=== PATIENT | male | born 1970 | race Caucasian/White ===

== ENCOUNTER 2020-06-22 22:00 | Emergency (ER) | payer SELFPAY ==
[2020-06-22 22:15] VITALS: BP 146/89; PULSE 91; RESP 18; TEMP 36.6; O2SAT 97; BMI 24.2
--- NOTE | 2020-06-22 22:35 | ED.ALCOHOL ---
HPI - Alcohol General Chief Complaint: ETOH/Substance Use Stated Complaint: etoh Time Seen by Provider: 06/22/20 22:17 Source: patient, EMS and other (Girlfriend) Mode of arrival: EMS History of Present Illness HPI narrative: A 50-year-old male who had a good who drinks vodka regularly and had 2 pt today and states that he is homeless, however on review of document him it is reported with EMS brought him in after being called by the girlfriend with whom he was fighting with. Patient states he is interested in the coughing is not currently having pain anywhere. Related Data Allergies Allergy/AdvReac Type Severity Reaction Status Date / Time clams Allergy Severe HIVES, Unverified 03/12/20 17:45 DIFFICULTY BREATHING Review of Systems Review of Systems: The pertinent positives and negatives as stated in HPI 10 point review of systems is otherwise negative. [facility] Past Medical History Source: nursing notes reviewed Medical History ETOH abuse High cholesterol HTN (hypertension) Social History Social History Alcohol intake: current Alcohol intake frequency: 3 or more drinks per day Alcohol type: hard liquor Smoking Status: Current every day smoker Use of substances other than those prescribed or required for medical reasons: No Advance Directives: No Advance Directives Information Provided: Yes Physical Exam Vital Signs: Vital Signs: Last Vital Signs Temp 97.8 F 06/23/20 00:16 Pulse 66 06/23/20 00:16 Resp 18 06/23/20 00:16 BP 104/53 L 06/23/20 00:16 Pulse Ox 96 06/23/20 00:16 Body Mass Index 24.2 VITAL SIGNS: Reviewed. GENERAL: Well developed, well nourished, in no acute distress. HEAD: Normocephalic/atraumatic, EYES: PERRLA, EOMI intact without pain, no nystagmus/pallor/icterus noted EARS: Ext canals without abnormality, TMs non-bulging and non-erythematous NOSE: Nares patent bilateral, bulbous OROPHARYNX: no oral lesions noted, posterior pharynx clear and non-erythematous without noted tonsillar enlargement/erythema/exudates NECK: Supple, no adenopathy LUNGS: Normal breath sounds. No adventitious sounds or accessory muscle use. SpO2<97> CARDIOVASCULAR: Regular rate and rhythm without noted murmurs, no JVD or lower extremity edema. ABDOMEN: Soft, non-tender, non-distended with bowel sounds. No rigidity. No guarding. No palpable masses or hernias noted NEUROLOGIC: Alert and oriented x 3, no tremors Course Course Course Narrative: This is a 50-year-old male with history and clinical presentation consistent with alcohol intoxication and requesting detox. All investigations were reviewed and there are no acute findings. The noted transaminemia is secondary to patient's intoxication. I was notified by nursing that patient has eloped. MDM - Alcohol Lab Data Result diagrams: 06/22/20 23:12 06/22/20 23:12 Labs: Lab Results 06/22/20 06/22/20 06/22/20 Range/Units 23:12 23:12 23:13 WBC 4.3 L (4.8-10.8) X10*3/uL RBC 4.50 L (4.60-5.80) X10*6/uL Hgb 13.1 L (14.0-18.0) g/dl Hct 40.3 L (42-52) % MCV 89.6 (80-98) fL MCH 29.1 (27.0-33.0) pg MCHC 32.5 (31.0-36.0) g/dl RDW 14.7 (11.0-16.0) % Plt Count 234 (160-400) X10*3/uL MPV 9.8 (9.4-12.4) fL Immature Gran % (Auto) 0.5 H (0.0-0.4) % Neut % (Auto) 63.7 (45-73) % Lymph % (Auto) 19.3 L (20-40) % [place] % (Auto) 11.1 H (2-11) % Eos % (Auto) 4.7 H (0-4) % Baso % (Auto) 0.7 (0-2) % Lymph # (Auto) 0.8 L (1.2-4.9) X10*3/uL [place] # (Auto) 0.5 (0.1-1.2) X10*3/uL Eos # (Auto) 0.2 (0.0-0.4) X10*3/uL Baso # (Auto) 0.0 (0.0-0.2) X10*3/uL Abs Immat Gran (auto) 0.02 (0.00-0.03) X10*3/uL Absolute Neuts (auto) 2.7 (2.0-8.3) X10*3/uL Absolute Nucleated RBC 0.000 (0.0-0.012) X10*3/uL Nucleated RBC % (auto) 0.0 (0.0-0.2) /100WBC Sodium 141 (135-145) mmol/L Potassium 4.3 (3.3-5.1) mmol/l Chloride 109 H (96-108) mmol/L Carbon Dioxide 23 (22-29) mmol/L Anion Gap 13 (12-20) BUN 15 (9-16) mg/dL Creatinine 0.80 (0.5-1.4) mg/dL Estim Creat Clear Calc 99.6 Estimated GFR > 60 Random Glucose 107 (60-115) mg/dL Calcium 7.2 L (8.4-10.2) mg/dL Total Bilirubin 0.2 (0.0-1.0) mg/dL AST 63 H (5-37) U/L ALT 46 H (0-40) U/L Alkaline Phosphatase 63 (39-117) U/L Total Protein 7.9 (6.5-8.0) g/dL Albumin 3.4 L (3.5-5.0) g/dL Ethyl Alcohol 322 H* mg/dL Discharge Plan Discharge Clinical Impression: Alcoholic intoxication Patient Disposition: Elopement
[2020-06-22 23:24] LABS: Basophils Percent Auto 0.7 % (0-2); Eosinophils Absolute Auto 0.2 X10*3/uL (0.0-0.4); Eosinophils Percent Auto 4.7 % (0-4); Hematocrit 40.3 % (42-52); Hemoglobin 13.1 g/dl (14.0-18.0); Imm Gran Abs Auto 0.02 X10*3/uL (0.00-0.03); Imm Gran Pct Auto 0.5 % (0.0-0.4); Lymphocytes Absolute Auto 0.8 X10*3/uL (1.2-4.9); Lymphocytes Percent Auto 19.3 % (20-40); MANUAL DIFF FLAG NO; Mean Corpuscular HGB Conc 32.5 g/dl (31.0-36.0); Mean Corpuscular Hemoglobin 29.1 pg (27.0-33.0); Mean Corpuscular Volume 89.6 fL (80-98); Mean Platelet Volume 9.8 fL (9.4-12.4); Monocytes Absolute Auto 0.5 X10*3/uL (0.1-1.2); Monocytes Percent Auto 11.1 % (2-11); Neutrophils Absolute Auto 2.7 X10*3/uL (2.0-8.3); Neutrophils Percent Auto 63.7 % (45-73); Platelet Count 234 X10*3/uL (160-400); Red Cell Distribution Width 14.7 % (11.0-16.0); White Blood Count 4.3 X10*3/uL (4.8-10.8)
[2020-06-22 23:46] LABS: Ethanol 322 mg/dL
[2020-06-22 23:51] LABS: Alanine Aminotransferase 46 U/L (0-40); Albumin Level 3.4 g/dL (3.5-5.0); Alkaline Phosphatase 63 U/L (39-117); Anion Gap 13 (12-20); Aspartate Amino Transferase 63 U/L (5-37); Bilirubin Total 0.2 mg/dL (0.0-1.0); Blood Urea Nitrogen 15 mg/dL (9-16); Calcium 7.2 mg/dL (8.4-10.2); Carbon Dioxide 23 mmol/L (22-29); Chloride 109 mmol/L (96-108); Creatinine Clr Calc Pharmacy 99.6; Estimated Glomerular Filt Rate > 60; Glucose Random 107 mg/dL (60-115); Potassium 4.3 mmol/l (3.3-5.1); Sodium 141 mmol/L (135-145); Total Protein 7.9 g/dL (6.5-8.0)
[2020-06-23 00:16] VITALS: BP 104/53; PULSE 66; RESP 18; TEMP 36.6; O2SAT 96
--- NOTE | 2020-06-23 01:06 | PC.NURSE ---
REPORT GIVEN TO TERESA SCHMIDT.
--- NOTE | 2020-06-23 03:25 | PC.NURSE ---
PATIENT SLEEPING AT THIS TIME. WILL CONTINUE TO MONITOR.
--- NOTE | 2020-06-23 07:14 | PC.NURSE ---
Report received. PT is sleeping in bed. Breathing is even and unlabored. PT wants to enter alcohol detox program. Nurse to discuss options with PT when he wakes up.
--- NOTE | 2020-06-23 07:49 | PC.NURSE ---
PT woke up and stated that he wants to go home. Nurse to provide a list of numbers to call for detox. Provider notified.
--- NOTE | 2020-06-23 08:02 | PC.NURSE ---
PT's home phone called to inform that belongings were left at the hospital. No one answered the phone, nurse left voicemail.
== END 2020-06-23 08:35 | disposition left against medical advice (07) ==
PROVIDERS: Emergency Provider Student in an Organized Health Care Education/Training Program
DX: F10.129 Alcohol abuse with intoxication, unspecified (principal); Y90.8 Blood alcohol level of 240 mg/100 ml or more; F17.200 Nicotine dependence, unspecified, uncomplicated; Z71.6 Tobacco abuse counseling; Z59.0 Homelessness
CPT/HCPCS: 36415; 80053; 80320; 85025; 99284

== ENCOUNTER 2020-09-13 18:10 | Emergency (ER) | payer MEDICAID, SELFPAY ==
[2020-09-13 18:21] VITALS: BP 131/81; PULSE 87; RESP 18; TEMP 36.7; O2SAT 97; BMI 22.8
--- NOTE | 2020-09-13 18:21 | ED.ALCOHOL ---
HPI - Alcohol General Chief Complaint: ETOH/Substance Use Stated Complaint: etoh Source: patient Mode of arrival: ambulatory Limitations: no limitations History of Present Illness HPI narrative: Patient presents to ED for alcohol intoxication/alcohol use. Patient admits to drinking. Patient denies falling to the ground. Patient does not want detox. Related Data Allergies Allergy/AdvReac Type Severity Reaction Status Date / Time clams Allergy Severe HIVES, Unverified 03/12/20 17:45 DIFFICULTY BREATHING Review of Systems Review of Systems: Yes all other systems are reviewed and are negative Constitutional: Constitutional: Reports as per HPI and Reports no additional constitutional complaints Eyes: Eyes: Reports as per HPI and Reports no additional eye complaints ENT: Reports system reviewed and no additional complaints, except as documented and Reports as per HPI Cardiovascular: Cardiovascular: Reports as per HPI and Reports no additional cardiovascular complaints Respiratory: Respiratory: Reports as per HPI and Reports no additional respiratory complaints Gastrointestinal: Gastrointestinal: Reports as per HPI and Reports no additional gastrointestinal complaints Genitourinary: Genitourinary: Reports no additional male genitourinary complaints and Reports as per HPI Musculoskeletal: Musculoskeletal: Reports no additional musculoskeletal complaints and Reports as per HPI Neurologic: Reports system reviewed and no additional complaints, except as documented and Reports as per HPI Psychiatric: Psychiatric: Reports no additional psychiatric complaints and Reports as per HPI PMFSH Past Medical History Medical History ETOH abuse High cholesterol HTN (hypertension) Social History Social History Alcohol intake: current Alcohol intake frequency: 3 or more drinks per day Alcohol type: hard liquor Smoking Status: Current every day smoker Advance Directives: No Advance Directives Information Provided: No Physical Exam Vital Signs: Vital Signs: Last Vital Signs Temp 98.3 F 09/13/20 22:47 Pulse 112 H 09/13/20 22:47 Resp 18 09/13/20 22:47 BP 119/72 09/13/20 22:47 Pulse Ox 93 09/13/20 22:47 Body Mass Index 22.8 Const: Other: Alcohol on breath General: cooperative, healthy appearing, comfortable, no acute distress, well developed, alert, awake and Physically active Orientation/consciousness: patient oriented x3 HENMT: Head: Yes normal to inspection, Yes No palpable skull fracture present, Yes normocephalic, Yes atraumatic, No abrasion, No Acrocyanosis present, No Willams's sign, No contusion, No cranial bruits, No hematoma, No laceration, No occipital foramen tenderness, No palpable skull fracture, No raccoon eyes, No scalp lesion, No scalp tenderness, No Temporal artery tenderness present and No periorbital ecchymosis Eyes: General: appearance normal, both eyes and all related structures Neck: Neck: Yes normal visual inspection, Yes full ROM, Yes no lymphadenopathy, Yes no meningeal signs, Yes trachea midline, Yes supple and No tender Chest: Chest palpation & inspection: normal inspection of the chest and normal palpation of entire chest wall Resp: Effort & Inspection: normal respiratory effort Auscultation: clear to auscultation bilaterally Cardio: Jugular venous distension: no JVD Heart sounds: S1 normal heart sound present and S2 normal heart sound present GI: Inspection: Yes normal to inspection and No abdominal wall ecchymosis Palpation (GI): Soft to palpation, not firm, nontender, no guarding and not rigid : General: No CVA tenderness and Yes no CVA tenderness Back/Spine/Pelvis: Back: no CVA tenderness, No CVA tenderness and No back tenderness Skin: General skin exam: no rashes or lesions noted Neuro: General: patient oriented x3, no meningeal signs and CN's II-XI intact bilaterally Cranial nerves: Yes CN's II-XII intact bilaterally Extrem: General: Yes normal to inspection and Yes full ROM Psych: Appearance: grossly normal, well kempt and not disheveled Course Course Course Narrative: Patient's whole body examined and negative for signs of trauma. Patient has alcohol on breath and seemed slightly inebriated. Any patient rest in the ED and become more sober before discharge. Patient really does not want detox. Reevaluation(s) Reevaluation #1: Patient alert oriented x3. Patient ready for discharge. Patient does not want detox. Patient has normal gait. Time: 00:32 MDM - Alcohol MDM Narrative Medical decision making narrative: Alcohol abuse Discharge Plan Discharge Clinical Impression: Alcohol abuse Patient Disposition: Home, Self-Care Instructions: Abuse of Alcohol (ED) Additional Instructions: Return to the ED immediately for any headache, dizziness, chest pain, abdominal pain, vomiting blood, rectal bleeding, weakness, or any other concerning symptoms. Please follow-up with the PCP Interventions: ED Discharge Assessment Last Done: 09/14/20 00:42 Discharge Date/Time: 09/14/20 00:52 Print Language: Icelandic
[2020-09-13 22:47] VITALS: BP 119/72; PULSE 112; RESP 18; TEMP 36.8; O2SAT 93
== END 2020-09-14 00:52 | disposition home or self-care (01) ==
PROVIDERS: Emergency Provider Internal Medicine
DX: F10.10 Alcohol abuse, uncomplicated (principal); I10 Essential (primary) hypertension; F17.200 Nicotine dependence, unspecified, uncomplicated
CPT/HCPCS: 99284

== ENCOUNTER 2020-09-15 13:50 | Emergency (ER) | payer MEDICAID, SELFPAY ==
--- NOTE | ~2020-09-15 | CT_ITS ---
EXAMINATION: CT CHEST, ABDOMEN AND PELVIS WITHOUT CONTRAST CLINICAL INFORMATION: Patient complains of abdominal pain. ETOH intake. COMPARISON: Lumbar spine films 01/16/2016. TECHNIQUE: Multidetector volumetric imaging was performed from the thoracic inlet through the pubic symphysis without IV contrast. Sagittal and coronal reformatted images were obtained on the technologist's workstation. This CT examination was performed using dose optimization techniques as appropriate, variously including the following: Automated exposure control. Adjustment of mA and/or kV according to patient size (this includes techniques or standardized protocols for targeted exams where dose is matched to indication/reason for exam; i.e. extremities or head). Use of iterative reconstruction technique. DLP: 231 mGy-cm FINDINGS: CHEST: Lung: The lung santos are abnormal with increased reticular nodular markings peripherally with some suggestion of honeycombing. Findings are suggestive of interstitial lung disease. At least 2 small focal nodular densities are seen; a 4 mm nodule left apex (5:92) and a 6 mm nodule left upper lobe (5:153). Calcified granulomas are also present. No consolidation is seen. Mediastinum: The heart is enlarged. No aortic aneurysm is present. Multiple mediastinal lymph nodes are present, the largest being a right paratracheal node measuring 2.2 x 1.3 x 2.2 cm (5:162). Multiple smaller aortopulmonary window lymph nodes are present, the largest measuring 1.5 x 0.9 x 0.9 cm (5:168). Pericardium/Pleura: No significant effusion. No pleural mass or thickening. Chest Wall/Axilla: Bilateral small axillary lymph nodes are present, but there is no adenopathy. ABDOMEN/PELVIS: Peritoneal Space: No significant free air or free fluid identified. Liver, Gallbladder, Biliary Tree: Liver is enlarged measuring 20 cm in greatest length and demonstrates marked decreased attenuation consistent with hepatic steatosis. No focal liver mass or bile duct dilatation is seen. The gallbladder is isoattenuating with the liver, but unremarkable with no evidence of radiopaque gallstones, gallbladder wall thickening, or obvious pericholecystic inflammatory changes. Pancreas: Unremarkable. Spleen: Unremarkable. Adrenal Glands: Unremarkable. Kidneys and Ureters: The kidneys are normal in size, shape, and attenuation. No hydronephrosis, hydroureter, or calculi seen. No perinephric stranding. Bladder: Unremarkable. Gastrointestinal Tract: The small and large bowel are unremarkable. The appendix is unremarkable. Abdominal Wall: No significant hernia is appreciated. Lymph Nodes: No lymphadenopathy. Vascular: The aorta appears normal. The IVC appears unremarkable. PELVIC VISCERA: Prostate and seminal vesicles appear normal. OSSEUS STRUCTURES: A grade 2-3 anterolisthesis of L5 upon S1 is again seen. A compression fracture of L1 with anterior wedging is stable. CT/CT abdomen pelvis wo con IMPRESSION: A cause for the patient's acute abdominal pain has not been found. Incidental note made of: Chronic changes in the lungs consistent with some element of interstitial lung disease. Small pulmonary nodules, the largest 6 mm. Cardiomegaly with prominent mediastinal lymph nodes. Enlarged fatty liver. Stable anterolistheses and compression fracture as described above.
[2020-09-15 14:03] VITALS: BP 133/93; PULSE 90; RESP 16; TEMP 36.4; O2SAT 97; BMI 21.7
[2020-09-15 16:02] LABS: Basophils Percent Auto 0.3 % (0-2); Eosinophils Absolute Auto 0.1 X10*3/uL (0.0-0.4); Eosinophils Percent Auto 2.3 % (0-4); Hemoglobin 12.9 g/dl (14.0-18.0); Imm Gran Abs Auto 0.01 X10*3/uL (0.00-0.03); Imm Gran Pct Auto 0.3 % (0.0-0.4); Lymphocytes Absolute Auto 0.6 X10*3/uL (1.2-4.9); Lymphocytes Percent Auto 14.4 % (20-40); MANUAL DIFF FLAG SCAN; Mean Corpuscular HGB Conc 32.3 g/dl (31.0-36.0); Mean Corpuscular Volume 89.9 fL (80-98); Mean Platelet Volume 9.5 fL (9.4-12.4); Monocytes Absolute Auto 0.4 X10*3/uL (0.1-1.2); Monocytes Percent Auto 10.3 % (2-11); Neutrophils Absolute Auto 2.9 X10*3/uL (2.0-8.3); Neutrophils Percent Auto 72.4 % (45-73); Platelet Count 230 X10*3/uL (160-400); Red Blood Count 4.45 X10*6/uL (4.60-5.80); Red Cell Distribution Width 17.2 % (11.0-16.0); SCAN SMEAR FLAG 1
[2020-09-15 16:20] LABS: Ethanol 291 mg/dL
[2020-09-15 16:24] LABS: Lactate Dehydrogenase 319 U/L (118-273); Magnesium 2.3 mg/dL (1.6-2.6)
[2020-09-15 16:29] LABS: Alanine Aminotransferase 63 U/L (0-40); Albumin Level 3.4 g/dL (3.5-5.0); Alkaline Phosphatase 80 U/L (39-117); Anion Gap 17 (12-20); Aspartate Amino Transferase 110 U/L (5-37); Bilirubin Total 0.7 mg/dL (0.0-1.0); Blood Urea Nitrogen 18 mg/dL (9-16); Calcium 7.8 mg/dL (8.4-10.2); Carbon Dioxide 20 mmol/L (22-29); Chloride 106 mmol/L (96-108); Creatinine Clr Calc Pharmacy 124.2; Estimated Glomerular Filt Rate > 60; Glucose Random 83 mg/dL (60-115); Lipase 72 U/L (8-78); Potassium 3.9 mmol/L (3.3-5.1); Sodium 139 mmol/L (135-145); Total Protein 8.2 g/dL (6.5-8.0)
[2020-09-15 16:50] LABS: SLIDE REVIEW VERIFIED
--- NOTE | 2020-09-15 17:50 | PC.NURSE ---
Pt moved to enclosed room pending covid swab results.
[2020-09-15 17:57] LABS: Influenza A PCR NEGATIVE (Negative); Influenza B PCR NEGATIVE (Negative); Resp Syncy Virus RNA Qual PCR NEGATIVE (Negative); SARS COV2 PCR INHOUSE NEGATIVE (Negative)
--- NOTE | 2020-09-15 17:59 | ECG_ITS ---
Test Reason : ETOH Blood Pressure : / mmHG Vent. Rate : 092 BPM Atrial Rate : 092 BPM P-R Int : 212 ms QRS Dur : 098 ms QT Int : 364 ms P-R-T Axes : 040 -34 023 degrees QTc Int : 450 ms Sinus rhythm with 1st degree A-V block Left axis deviation Abnormal ECG When compared with ECG of 01-JUL-2013 05:32, [place] interval has increased Referred By: Ai Petit Electronically Signed By:JOSÉ MIGUEL JACOBO
[2020-09-15 18:52] LABS: Ferritin 384 ng/mL (20-250)
--- NOTE | 2020-09-15 19:03 | PC.NURSE ---
Report taken from ezequiel Lawler RN resuming care. Pt found sitting upright in bed, speaking full sentences in NAD. Urine sample obtained and sent. fisheries technical officer to obtain EKG. Pt provided with food/drink. Continue to monitor.
[2020-09-15 19:08] LABS: Procalcitonin 0.55 ng/mL
--- NOTE | 2020-09-15 19:20 | ED_ITS ---
HPI - Alcohol General Chief Complaint: ETOH/Substance Use Stated Complaint: ETOH, BACK PAIN NO INJURY Time Seen by Provider: 09/15/20 15:25 Source: patient and EMS Mode of arrival: EMS Limitations: other (Intoxicated poor historian) History of Present Illness HPI narrative: 50-year-old male with a past medical history of ETOH dependent, chronic back pain due to spinal fracture, hyperlipidemia and hypertension pres enting to the ED via EMS after he was found outside at [employer] [place] therefore [employer] called EMS and told him he can no longer be there. Patient admits to drinking approximately 2 beers and 1 pt of vodka daily. Reports he is currently homeless. Not interested in detox. Denies any drug usage. Denies any SI/HI/auditory visual hallucinations thoughts of self-injury. Admits to pain that he reports is chronic no increase in pain. Denies any fevers, dizziness, headaches, lightheadedness, changes in vision, sore throat, cough, chest pain, shortness of breath, dyspnea on exertion, orthopnea, palpitations, lower extremity edema, nausea/vomiting/diarrhea/constipation, abdominal pain, penile discharge or dysuria or any other symptoms complaints or concerns. MD complaint: alcohol intoxication and alcohol dependence Last drink: Just prior to admission Amount of alcohol consumed: Two beers and 1 pt of vodka daily Chronic alcohol use: Yes Previous visits for alcohol intoxication: Yes Recent trauma: No Associated symptoms: other (Chronic back pain) Treatments prior to arrival: none Related Data Allergies Allergy/AdvReac Type Severity Reaction Status Date / Time clams Allergy Severe HIVES, Verified 09/15/20 14:07 DIFFICULTY BREATHING Review of Systems Review of Systems: Constitutional : No Fever, No Chills ENT/Mouth : No Ear Pain, No Nasal Congestion, No sore throat Eyes: No Eye Pain, No Swelling, No Redness Cardiovascular : No Chest Pain, No SOB Respiratory : No Cough, No Sputum, No Dyspnea Gastrointestinal : No ingestions, No Nausea, No Vomiting, No Diarrhea, No Hematochezia, No Melena Genitourinary : No Dysuria, No Urinary Frequency, No Hematuria Musculoskeletal : No Myalgias Skin : No Skin Lesions, No rash Neuro : No Weakness, No Numbness, No Paresthesias, No Dizziness, No Headache Psych : No Anxiety, No Depression, No SI/HI, No AVH, No thoughts of self injury Heme/Lymph: No Lymphadenopathy Endocrine : No Polyuria, No Polydipsia Yes all other systems are reviewed and are negative [facility] Past Medical History Attestation statement: The following information was validated with the patient. Medical History ETOH abuse High cholesterol HTN (hypertension) Social History Social History Alcohol intake: current Alcohol intake frequency: 3 or more drinks per day Alcohol type: hard liquor Smoking Status: Smoker, status unknown Use of substances other than those prescribed or required for medical reasons: Unknown Last Used Substance: Unknown Advance Directives: No Advance Directives Information Provided: No Physical Exam Vital Signs: Vital Signs: Last Vital Signs Temp 97.6 F 09/15/20 14:03 Pulse 100 09/15/20 21:35 Resp 16 09/15/20 21:35 BP 118/79 09/15/20 21:35 Pulse Ox 95 09/15/20 21:35 Body Mass Index 21.7 vital signs have been reviewed as normal and appeared to be correct. Blood pressure hypertensive at 133/93. Heart rate normal. Respiration rate normal. Temperature normal. Oxygen saturation normal. Appearance: Alert intoxicated with EtOH on breath. Otherwise Oriented X3. No acute distress. No signs of tr auma. Head: Normal external exam. Normocephalic. Atraumatic. No Willams signs noted. No raccoon eyes noted Eyes: PERRLA. EOMI. Conjunctiva and sclera normal. Eyelids normal. ENT: EAC normal. TM's Normal. Pharynx normal. Uvula midline. Moist mucous membranes. No trismus noted. No drooling noted. No muffled voice noted. Neck: Normal inspection. Neck supple. FROM. No adenopathy. Thyroid Normal. No meningeal signs. No neck mass noted. CVS: Normal heart rate and rhythm. Heart sound normal. No murmurs noted. Pulses normal throughout. Respiratory: No respiratory distress. Painless inspiration. Breath sounds normal. No wheezes/rales/rhonchi noted. Chest nontender. No accessory muscle usage noted or decreased air movement noted. Abdomen: Soft and mild tenderness to palpation to left flank. Bowel sounds normal in all 4 quadrants. No distention noted. No organomegaly noted. No visible injury noted. Back: No CVA tenderness. Full range of motion noted. No obvious deformities, or edema. Mild para-spinal muscular tenderness from lumbar region to coccyx. Full ROM in back and lower extremities. 5/5 strength hip extension/flexion, abduction, adduction. Mild Lumbar pain with hip flexion against resistance. Straight leg raise test negative on right; Straight leg raise test negative on left; Reflexes normal ankle and knee bilaterally; EHL motor strength normal bilaterally Skin: Skin warm and dry. Normal skin color. Normal skin turgor. No rashes/lesions/lacerations noted. Extremities: No lower extremity edema. Extremities exhibit normal range of motion. Extremities nontender. Neuro: Oriented X 3. No motor deficit. No sensory deficit. Reflexes normal. Psych: Appearance grossly normal, well-kept, mental status normal, speech and movement normal, speech clear, mood is normal. Is cooperative. Normal thought process. Normal thought content. Patient does not have good insight or judgment. Course Course Course Narrative: 15:35pm - 50-year-old male with a past medical history of ETOH dependent, chronic back pain due to spinal fracture, hyperlipidemia and hypertension presenting to the ED for approximately drinking 2 beers and 1 pt of vodka daily. Currently homele ss. Not interested in detox. Denies any SI/HI/auditory visual syndrome thoughts of self-injury. Reports chronic back pain denies any new symptoms. - on exam patient is intoxicated although alert and oriented x3. Not in any acute distress. Mildly hypertensive at 133/93 otherwise all other vitals are within normal limits. No focal neuro deficits are noted. Lungs clear to auscultation. CV RRR. Patient mild left flank pain. Otherwise the rest of the abdomen is soft and nontender. Mild left lower back pain. No calf tenderness or lower extremity edema. No signs of trauma. - will obtain labs, CT scan of abdomen and pelvis and EKG then re-evaluate. Reevaluation(s) Reevaluation #1: - white blood cell count 4000. Patient with mild baseline anemia. Similar when compared to prior. Carbon dioxide 20. BUN 18. Calcium 7.8. Ferritin 384. AST/ALT 110/63. LDH 319. CRP 0.60. Total protein 8.2. Albumin 3.4. UA within normal limits no evidence of UTI. ETOH level 291. COVID/RSV/flu negative. - I was called over by the sales and service technician regarding the patient's CT scan of abdomen and pelvis revealing that his are appeared enlarged therefore we obtained a CT of chest without contrast and CT scan of chest and abdomen revealed chronic changes and lungs consistent with some elevated of interstitial lung disease. Small pulmonary nodules, the largest 6 mm. Cardiomegaly with prominent mediastinal lymph nodes. Enlarged fatty liver otherwise no other acute processes. - patient denied any symptoms to me therefore will print out the CT scan results give him a copy and instruct him to follow up with his primary care provider about this. - otherwise patient is medically cleared at this time he denies any SI/HI/ auditory visual hallucinations or thoughts of self injury and he is not interested in detox therefore patient will be placed in physician on survey merritt at this time because the patient needs more time to clinically be sober. At this time the observation was started the patient's vitals remained stable within normal limits. Patient continues to be alert and oriented x3. Not in any acute distress. No focal neuro deficits noted. CV RRR. Lungs CTA. Will continue to monitor until patient is clinically sober. Patient understands agrees with this plan. Time: 19:29 MDM - Alcohol Medical Records Attestation: I reviewed the patient's medical records. Lab Data Attestation: I reviewed the patient's lab results. Result diagrams: 09/15/20 15:53 09/15/20 15:53 Labs: Lab Results 09/15/20 09/15/20 09/15/20 Range/Units 15:53 15:53 15:53 WBC 4.0 L (4.8-10.8) X10*3/uL RBC 4.45 L (4.60-5.80) X10*6/uL Hgb 12.9 L (14.0-18.0) g/dl Hct 40.0 L (42-52) % MCV 89.9 (80-98) fL MCH 29.0 (27.0-33.0) pg MCHC 32.3 (31.0-36.0) g/dl RDW 17.2 H (11.0-16.0) % Plt Count 230 (160-400) X10*3/uL MPV 9.5 (9.4-12.4) fL Immature Gran % (Auto) 0.3 (0.0-0.4) % Neut % (Auto) 72.4 (45-73) % Lymph % (Auto) 14.4 L (20-40) % [place] % (Auto) 10.3 (2-11) % Eos % (Auto) 2.3 (0-4) % Baso % (Auto) 0.3 (0-2) % Lymph # (Auto) 0.6 L (1.2-4.9) X10*3/uL [place] # (Auto) 0.4 (0.1-1.2) X10*3/uL Eos # (Auto) 0.1 (0.0-0.4) X10*3/uL Baso # (Auto) 0.0 (0.0-0.2) X10*3/uL Abs Immat Gran (auto) 0.01 (0.00-0.03) X10*3/uL Absolute Neuts (auto) 2.9 (2.0-8.3) X10*3/uL Absolute Nucleated RBC 0.000 (0.0-0.012) X10*3/uL Nucleated RBC % (auto) 0.0 (0.0-0.2) /100WBC Smear Tech's Comments VERIFIED Hold Purple Top SEE NOTE PT 12.0 (10.8-13.0) SEC INR 1.0 (0.9-1.1) Sodium (135-145) mmol/L Potassium (3.3-5.1) mmol/L Chloride (96-108) mmol/L Carbon Dioxide (22-29) mmol/L Anion Gap (12-20) BUN (9-16) mg/dL Creatinine (0.5-1.4) mg/dL Estim Creat Clear Calc Estimated GFR Random Glucose (60-115) mg/dL Calcium (8.4-10.2) mg/dL Magnesium (1.6-2.6) mg/dL Ferritin (20-250) ng/mL Total Bilirubin (0.0-1.0) mg/dL AST (5-37) U/L ALT (0-40) U/L Alkaline Phosphatase (39-117) U/L Lactate Dehydrogenase (118-273) U/L C-Reactive Protein (< or = 0.50) mg/dL Total Protein (6.5-8.0) g/dL Albumin (3.5-5.0) g/dL Lipase (8-78) U/L Procalcitonin ng/mL Urine Color Urine Appearance Urine pH (5.0-8.0) Ur Specific [place] (1.005-1.025) Urine Protein (NEG-TRACE) MG/DL Urine Glucose (UA) (NEG) MG/DL Urine Ketones (NEG) MG/DL Urine Blood (NEG) Urine Nitrite (NEG) Ur Leukocyte Esterase (NEG) Urine Opiates Screen (Not Detect) Ur Barbiturates Screen (Not Detect) Ur Phencyclidine Scrn (Not Detect) Ur Amphetamines Screen (Not Detect) U Benzodiazepines Scrn (Not Detect) Urine Cocaine Screen (Not Detect) U Marijuana (THC) Screen (Not Detect) Ethyl Alcohol mg/dL Coronavirus (PCR) (Negative) Influenza Type A (PCR) (Negative) Influenza Type B (PCR) (Negative) RSV RNA Qual (PCR) (Negative) 09/15/20 09/15/20 09/15/20 Range/Units 15:53 15:53 15:53 WBC (4.8-10.8) X10*3/uL RBC (4.60-5.80) X10*6/uL Hgb (14.0-18.0) g/dl Hct (42-52) % MCV (80-98) fL MCH (27.0-33.0) pg MCHC (31.0-36.0) g/dl RDW (11.0-16.0) % Plt Count (160-400) X10*3/uL MPV (9.4-12.4) fL Immature Gran % (Auto) (0.0-0.4) % Neut % (Auto) (45-73) % Lymph % (Auto) (20-40) % [place] % (Auto) (2-11) % Eos % (Auto) (0-4) % Baso % (Auto) (0-2) % Lymph # (Auto) (1.2-4.9) X10*3/uL [place] # (Auto) (0.1-1.2) X10*3/uL Eos # (Auto) (0.0-0.4) X10*3/uL Baso # (Auto) (0.0-0.2) X10*3/uL Abs Immat Gran (auto) (0.00-0.03) X10*3/uL Absolute Neuts (auto) (2.0-8.3) X10*3/uL Absolute Nucleated RBC (0.0-0.012) X10*3/uL Nucleated RBC % (auto) (0.0-0.2) /100WBC Smear Tech's Comments Hold Purple Top PT (10.8-13.0) SEC INR (0.9-1.1) Sodium (135-145) mmol/L Potassium (3.3-5.1) mmol/L Chloride (96-108) mmol/L Carbon Dioxide (22-29) mmol/L Anion Gap (12-20) BUN (9-16) mg/dL Creatinine (0.5-1.4) mg/dL Estim Creat Clear Calc Estimated GFR Random Glucose (60-115) mg/dL Calcium (8.4-10.2) mg/dL Magnesium 2.3 (1.6-2.6) mg/dL Ferritin (20-250) ng/mL Total Bilirubin (0.0-1.0) mg/dL AST (5-37) U/L ALT (0-40) U/L Alkaline Phosphatase (39-117) U/L Lactate Dehydrogenase 319 H (118-273) U/L C-Reactive Protein (< or = 0.50) mg/dL Total Protein (6.5-8.0) g/dL Albumin (3.5-5.0) g/dL Lipase (8-78) U/L Procalcitonin ng/mL Urine Color Urine Appearance Urine pH (5.0-8.0) Ur Specific [place] (1.005-1.025) Urine Protein (NEG-TRACE) MG/DL Urine Glucose (UA) (NEG) MG/DL Urine Ketones (NEG) MG/DL Urine Blood (NEG) Urine Nitrite (NEG) Ur Leukocyte Esterase (NEG) Urine Opiates Screen (Not Detect) Ur Barbiturates Screen (Not Detect) Ur Phencyclidine Scrn (Not Detect) Ur Amphetamines Screen (Not Detect) U Benzodiazepines Scrn (Not Detect) Urine Cocaine Screen (Not Detect) U Marijuana (THC) Screen (Not Detect) Ethyl Alcohol 291 mg/dL Coronavirus (PCR) NEGATIVE (Negative) Influenza Type A (PCR) NEGATIVE (Negative) Influenza Type B (PCR) NEGATIVE (Negative) RSV RNA Qual (PCR) NEGATIVE (Negative) 09/15/20 09/15/20 09/15/20 Range/Units 15:53 15:53 19:03 WBC (4.8-10.8) X10*3/uL RBC (4.60-5.80) X10*6/uL Hgb (14.0-18.0) g/dl Hct (42-52) % MCV (80-98) fL MCH (27.0-33.0) pg MCHC (31.0-36.0) g/dl RDW (11.0-16.0) % Plt Count (160-400) X10*3/uL MPV (9.4-12.4) fL Immature Gran % (Auto) (0.0-0.4) % Neut % (Auto) (45-73) % Lymph % (Auto) (20-40) % [place] % (Auto) (2-11) % Eos % (Auto) (0-4) % Baso % (Auto) (0-2) % Lymph # (Auto) (1.2-4.9) X10*3/uL [place] # (Auto) (0.1-1.2) X10*3/uL Eos # (Auto) (0.0-0.4) X10*3/uL Baso # (Auto) (0.0-0.2) X10*3/uL Abs Immat Gran (auto) (0.00-0.03) X10*3/uL Absolute Neuts (auto) (2.0-8.3) X10*3/uL Absolute Nucleated RBC (0.0-0.012) X10*3/uL Nucleated RBC % (auto) (0.0-0.2) /100WBC Smear Tech's Comments Hold Purple Top PT (10.8-13.0) SEC INR (0.9-1.1) Sodium 139 (135-145) mmol/L Potassium 3.9 (3.3-5.1) mmol/L Chloride 106 (96-108) mmol/L Carbon Dioxide 20 L (22-29) mmol/L Anion Gap 17 (12-20) BUN 18 H (9-16) mg/dL Creatinine 0.73 (0.5-1.4) mg/dL Estim Creat Clear Calc 124.2 Estimated GFR > 60 Random Glucose 83 (60-115) mg/dL Calcium 7.8 L D (8.4-10.2) mg/dL Magnesium (1.6-2.6) mg/dL Ferritin 384 H (20-250) ng/mL Total Bilirubin 0.7 (0.0-1.0) mg/dL AST 110 H (5-37) U/L ALT 63 H (0-40) U/L Alkaline Phosphatase 80 D (39-117) U/L Lactate Dehydrogenase (118-273) U/L C-Reactive Protein 0.60 H (< or = 0.50) mg/dL Total Protein 8.2 H (6.5-8.0) g/dL Albumin 3.4 L (3.5-5.0) g/dL Lipase 72 (8-78) U/L Procalcitonin 0.55 ng/mL Urine Color YELLOW Urine Appearance CLEAR Urine pH 6.0 (5.0-8.0) Ur Specific [place] 1.010 (1.005-1.025) Urine Protein TRACE (NEG-TRACE) MG/DL Urine Glucose (UA) NEG (NEG) MG/DL Urine Ketones NEG (NEG) MG/DL Urine Blood NEG (NEG) Urine Nitrite NEG (NEG) Ur Leukocyte Esterase NEG (NEG) Urine Opiates Screen (Not Detect) Ur Barbiturates Screen (Not Detect) Ur Phencyclidine Scrn (Not Detect) Ur Amphetamines Screen (Not Detect) U Benzodiazepines Scrn (Not Detect) Urine Cocaine Screen (Not Detect) U Marijuana (THC) Screen (Not Detect) Ethyl Alcohol mg/dL Coronavirus (PCR) (Negative) Influenza Type A (PCR) (Negative) Influenza Type B (PCR) (Negative) RSV RNA Qual (PCR) (Negative) 09/15/20 Range/Units 19:03 WBC (4.8-10.8) X10*3/uL RBC (4.60-5.80) X10*6/uL Hgb (14.0-18.0) g/dl Hct (42-52) % MCV (80-98) fL MCH (27.0-33.0) pg MCHC (31.0-36.0) g/dl RDW (11.0-16.0) % Plt Count (160-400) X10*3/uL MPV (9.4-12.4) fL Immature Gran % (Auto) (0.0-0.4) % Neut % (Auto) (45-73) % Lymph % (Auto) (20-40) % [place] % (Auto) (2-11) % Eos % (Auto) (0-4) % Baso % (Auto) (0-2) % Lymph # (Auto) (1.2-4.9) X10*3/uL [place] # (Auto) (0.1-1.2) X10*3/uL Eos # (Auto) (0.0-0.4) X10*3/uL Baso # (Auto) (0.0-0.2) X10*3/uL Abs Immat Gran (auto) (0.00-0.03) X10*3/uL Absolute Neuts (auto) (2.0-8.3) X10*3/uL Absolute Nucleated RBC (0.0-0.012) X10*3/uL Nucleated RBC % (auto) (0.0-0.2) /100WBC Smear Tech's Comments Hold Purple Top PT (10.8-13.0) SEC INR (0.9-1.1) Sodium (135-145) mmol/L Potassium (3.3-5.1) mmol/L Chloride (96-108) mmol/L Carbon Dioxide (22-29) mmol/L Anion Gap (12-20) BUN (9-16) mg/dL Creatinine (0.5-1.4) mg/dL Estim Creat Clear Calc Estimated GFR Random Glucose (60-115) mg/dL Calcium (8.4-10.2) mg/dL Magnesium (1.6-2.6) mg/dL Ferritin (20-250) ng/mL Total Bilirubin (0.0-1.0) mg/dL AST (5-37) U/L ALT (0-40) U/L Alkaline Phosphatase (39-117) U/L Lactate Dehydrogenase (118-273) U/L C-Reactive Protein (< or = 0.50) mg/dL Total Protein (6.5-8.0) g/dL Albumin (3.5-5.0) g/dL Lipase (8-78) U/L Procalcitonin ng/mL Urine Color Urine Appearance Urine pH (5.0-8.0) Ur Specific [place] (1.005-1.025) Urine Protein (NEG-TRACE) MG/DL Urine Glucose (UA) (NEG) MG/DL Urine Ketones (NEG) MG/DL Urine Blood (NEG) Urine Nitrite (NEG) Ur Leukocyte Esterase (NEG) Urine Opiates Screen Not Detected (Not Detect) Ur Barbiturates Screen Not Detected (Not Detect) Ur Phencyclidine Scrn Not Detected (Not Detect) Ur Amphetamines Screen Not Detected (Not Detect) U Benzodiazepines Scrn Not Detected (Not Detect) Urine Cocaine Screen Not Detected (Not Detect) U Marijuana (THC) Screen Not Detected (Not Detect) Ethyl Alcohol mg/dL Coronavirus (PCR) (Negative) Influenza Type A (PCR) (Negative) Influenza Type B (PCR) (Negative) RSV RNA Qual (PCR) (Negative) Imaging Data CT scan of chest/abdomen and pelvis without contrast: Attestation: I personally reviewed and interpreted this imaging study as follows: Radiologist's impression: FINDINGS: CHEST: Lung: The lung santos are abnormal with increased reticular nodular markings peripherally with some suggestion of honeycombing. Findings are suggestive of interstitial lung disease. At least 2 small focal nodular densities are seen; a 4 mm nodule left apex (5:92) and a 6 mm nodule left upper lobe (5:153). Calcified granulomas are also present. No consolidation is seen. Mediastinum: The heart is enlarged. No aortic aneurysm is present. Multiple mediastinal lymph nodes are present, the largest being a right paratracheal node measuring 2.2 x 1.3 x 2.2 cm (5:162). Multiple smaller aortopulmonary window lymph nodes are present, the largest measuring 1.5 x 0.9 x 0.9 cm (5:168). Pericardium/Pleura: No significant effusion. No pleural mass or thickening. Chest Wall/Axilla: Bilateral small axillary lymph nodes are present, but there is no adenopathy. ABDOMEN/PELVIS: Peritoneal Space: No significant free air or free fluid identified. Liver, Gallbladder, Biliary Tree: Liver is enlarged measuring 20 cm in greatest length and demonstrates marked decreased attenuation consistent with hepatic steatosis. No focal liver mass or bile duct dilatation is seen. The gallbladder is isoattenuating with the liver, but unremarkable with no evidence of radiopaque gallstones, gallbladder wall thickening, or obvious pericholecystic inflammatory changes. Pancreas: Unremarkable. Spleen: Unremarkable. Adrenal Glands: Unremarkable. Kidneys and Ureters: The kidneys are normal in size, shape, and attenuation. No hydronephrosis, hydroureter, or calculi seen. No perinephric stranding. Bladder: Unremarkable. Gastrointestinal Tract: The small and large bowel are unremarkable. The appendix is unremarkable. Abdominal Wall: No significant hernia is appreciated. Lymph Nodes: No lymphadenopathy. Vascular: The aorta appears normal. The IVC appears unremarkable. PELVIC VISCERA: Prostate and seminal vesicles appear normal. OSSEUS STRUCTURES: A grade 2-3 anterolisthesis of L5 upon S1 is again seen. A compression fracture of L1 with anterior wedging is stable. CT/CT chest wo con IMPRESSION: A cause for the patient's acute abdominal pain has not been found. Incidental note made of: Chronic changes in the lungs consistent with some element of interstitial lung disease. Small pulmonary nodules, the largest 6 mm. Cardiomegaly with prominent mediastinal lymph nodes. Enlarged fatty liver. Stable anterolistheses and compression fracture as described above. ECG Data Attestation: I personally reviewed and interpreted this ECG as follows: ECG interpretation date: 09/15/20 ECG interpretation time: 19:15 Interpretation: Sinus rhythm with 1st degree AV block with a ventricular rate of 92 with left axis deviation no acute ischemic changes noted. Discharge Plan Discharge Clinical Impression: ETOH abuse, Alcoholic intoxication, Cardiomegaly, Abnormal chest CT Patient Disposition: Home, Self-Care Instructions: Abuse of Alcohol (ED), Alcohol Dependence (ED) Additional Instructions: You had an abnormal CT scan of your chest where your heart was in large and your lymph nodes were prominent you also have small pulmonary nodules the largest 6 mm we are recommending that you follow-up with pulmonology/cardiology and her primary care provider. Return if any new or worsening symptoms. If you are interested in detox please return today you declined any detox. Referrals: Physician,Unknown [Primary Care Provider] - 2 days (Your PCP) Print Language: Ukrainian
[2020-09-15 19:22] LABS: Glucose Urine UA NEG (NEG); Leukocyte Esterase Urine NEG (NEG); Nitrite Urine NEG (NEG); Urine Blood NEG (NEG); Urine Ketones NEG (NEG); Urine Protein TRACE MG/DL (NEG-TRACE)
[2020-09-15 19:25] LABS: Appearance Urine CLEAR; Color Urine YELLOW
[2020-09-15 19:34] LABS: Amphetamine Screen Urine Not Detected (Not Detect); Barbiturates, Urine Not Detected (Not Detect); Benzodiazepines Screen Urine Not Detected (Not Detect); Cannabinoid Screen Urine Not Detected (Not Detect); Cocaine Screen Urine Not Detected (Not Detect); Opiate Screen Urine Not Detected (Not Detect); Phencyclidine Screen Urine Not Detected (Not Detect)
[2020-09-15 21:35] VITALS: BP 118/79; PULSE 100; RESP 16; O2SAT 95
== END 2020-09-15 22:14 | disposition home or self-care (01) ==
PROVIDERS: Physician Assistant Medical; Emergency Provider Emergency Medicine Emergency Medical Services
DX: F10.129 Alcohol abuse with intoxication, unspecified (principal); I51.7 Cardiomegaly; I10 Essential (primary) hypertension; M54.5 Low back pain; Y90.8 Blood alcohol level of 240 mg/100 ml or more; Z20.822 Contact with and (suspected) exposure to COVID-19; Z79.899 Other long term (current) drug therapy
CPT/HCPCS: 0241U; 36415; 71250; 74176; 80053; 80307; 80320; 81003; 82728; 83615; 83690; 83735; 84145; 85025; 85610; 86140; 93005; 99284

== ENCOUNTER 2020-09-21 12:30 | Emergency (ER) | payer MEDICAID, SELFPAY ==
[2020-09-21 12:42] VITALS: BP 124/76; PULSE 76; RESP 16; TEMP 35.9; O2SAT 98; BMI 23.3
--- NOTE | 2020-09-21 13:12 | MHC.RECOVSUP ---
? Reason for consult :Support o Current location:[facility] o Identified substance use concern: Alcohol ? Intervention: o Harm reduction discussion ? Plan: ? Additional information: Patient refused any services.. Stated that all he really needs is help with his Back Pain..
[2020-09-21 16:34] VITALS: PULSE 82
--- NOTE | 2020-09-21 16:35 | PC.NURSE ---
pt ontinues to rest in [place]ores stretcher, offers no complaints, given snack.
--- NOTE | 2020-09-21 17:02 | ED.ALCOHOL ---
HPI - Alcohol General Chief Complaint: ETOH/Substance Use <BETH Rainey - Last Filed: 09/24/20 11:25> Stated Complaint: etoh <BETH Rainey - Last Filed: 09/24/20 11:25> Time Seen by Provider: 09/21/20 12:40 <BETH Rainey - Last Filed: 09/24/20 11:25> History of Present Illness HPI narrative: Patient was brought by EMS for sleeping in a doorway after drinking alcohol, at this point the patient is awake and alert but sleepy and denies any complaint or problem says he has not been sick and he is not sure why they brought him to the hospital and he says he has had no injuries, feels fine but has no complaints Per EMS they were called by a home owner/photographer because he was sleeping in front of the home and they have no indication of any injury or illness <BETH Rainey Last Filed: 09/24/20 11:25> Related Data Allergies/Adverse Reactions: Allergies Allergy/AdvReac Type Severity Reaction Status Date / Time clams Allergy Severe HIVES, Verified 09/15/20 14:07 DIFFICULTY BREATHING <BETH Rainey - Last Filed: 09/24/20 11:25> Review of Systems Review of Systems: Alcohol intoxication Denies any fever or chills no headache no loss of consciousness no head injury no neck pain no numbness weakness or tingling no chest pain no shortness of breath no abdominal pain no extremity pain, denies any skin rash <BETH Rainey Last Filed: 09/24/20 11:25> [facility] Past Medical History Source: nursing notes reviewed <BETH Rainey - Last Filed: 09/24/20 11:25> Medical History: Medical History ETOH abuse High cholesterol HTN (hypertension) <BETH Rainey Last Filed: 09/24/20 11:25> Social History Social History: Social History Alcohol intake: current Alcohol intake frequency: 3 or more drinks per day Alcohol type: beer and hard liquor Smoking Status: Current every day smoker Advance Directives: No Advance Directives Information Provided: No <BETH Rainey Last Filed: 09/24/20 11:25> Physical Exam Vital Signs: Vital Signs: Last Vital Signs Temp 96.7 F L 09/21/20 12:42 Pulse 76 09/21/20 12:42 Resp 16 09/21/20 12:42 BP 124/76 09/21/20 12:42 Pulse Ox 98 09/21/20 12:42 Body Mass Index 23.3 <BETH Rainey - Last Filed: 09/24/20 11:25> Vital Signs: Last Vital Signs Temp 96.7 F L 09/21/20 12:42 Pulse 76 09/21/20 12:42 Resp 16 09/21/20 12:42 BP 124/76 09/21/20 12:42 Pulse Ox 98 09/21/20 12:42 Body Mass Index 23.3 <Robret Diaz MD - Last Filed: 10/09/20 13:40> Patient is A&O x3 but sleepy appearing and appears somewhat intoxicated but is easily aroused and responds to all questions appropriately with good understanding The head is normocephalic atraumatic pupils equal round react to light extraocular motions intact The neck is supple and nontender Chest is clear to auscultation full symmetric equal breath sounds no respiratory distress The heart no murmurs B abdomen soft nontender Extremities full range of motion x4 without tenderness swelling or deformity Neuro no focal deficit <BETH Rainey - Last Filed: 09/24/20 11:25> Course Course Course Narrative: Patient was observed in the ER for several hours, was fed provided a drink and when he was clinically sober able to walk able to communicate clearly with good understanding he continues to deny any complaints he says he feels fine and did not injure himself and was observed walking with good balance eating and communicating and was discharged clinically sober <BETH Rainey - Last Filed: 09/24/20 11:25> I have reviewed the chart <Robert Diaz MD - Last Filed: 10/09/20 13:40> Discharge Plan Discharge Clinical Impression: ETOH abuse <BETH Rainey - Last Filed: 09/24/20 11:25> Patient Disposition: Home, Self-Care <BETH Rainey - Last Filed: 09/24/20 11:25> Additional Instructions: Return any time any worse condition or any concerns <BETH Rainey - Last Filed: 09/24/20 11:25> Interventions: ED Discharge Assessment Last Done: 09/21/20 17:12 <BETH Rainey - Last Filed: 09/24/20 11:25> Discharge Date/Time: 09/21/20 17:13 <BETH Rainey - Last Filed: 09/24/20 11:25>
== END 2020-09-21 17:13 | disposition home or self-care (01) ==
PROVIDERS: Emergency Provider Emergency Medicine
DX: F10.120 Alcohol abuse with intoxication, uncomplicated (principal); Y90.9 Presence of alcohol in blood, level not specified; F17.200 Nicotine dependence, unspecified, uncomplicated; I10 Essential (primary) hypertension; E78.5 Hyperlipidemia, unspecified
CPT/HCPCS: 99284; 99285

== ENCOUNTER 2020-09-28 21:53 | Emergency (ER) | payer MEDICAID, SELFPAY ==
[2020-09-28 22:04] VITALS: BP 146/90; PULSE 78; RESP 16; TEMP 36.1; O2SAT 98; BMI 28.4
--- NOTE | 2020-09-28 22:11 | ED.ALCOHOL ---
HPI - Alcohol General Chief Complaint: ETOH/Substance Use Stated Complaint: ETOH Time Seen by Provider: 09/28/20 22:11 Source: patient and EMS Mode of arrival: EMS History of Present Illness HPI narrative: Patient with history of alcohol abuse been here before brought by EMS drinking beer and Vodka at home patient been here few times for similar situation and refused detox at that time history of fall or any injuries no nausea no vomiting no abdominal pain denies any other substance abuse Related Data Allergies Allergy/AdvReac Type Severity Reaction Status Date / Time clams Allergy Severe HIVES, Verified 09/15/20 14:07 DIFFICULTY BREATHING Review of Systems Review of Systems: Constitutional : No Weight loss, No Fever, No Chills ENT/Mouth : No sore throat, No Rhinorrhea Eyes: No Eye Pain, No Swelling Cardiovascular : No Chest Pain, no palpitations Respiratory : No Cough, No Sputum, no shortness of breath Gastrointestinal : no Nausea, No Vomiting, No Diarrhea, No abdominal Pain, no black stools Genitourinary : No Dysuria, No Urinary Frequency Musculoskeletal : No joint pain, No Myalgias, No Joint Swelling Skin : No Skin Lesions, No rash Neuro : No Weakness, No Numbness, No Dizziness, No Headache Psych : No Anxiety/Panic, No Depression Heme/Lymph: No Bruising, No Lymphadenopathy Endocrine : No Polyuria, No Polydipsia All other systems reviewed and are negative [facility] Past Medical History Medical History ETOH abuse High cholesterol HTN (hypertension) Social History Social History Alcohol intake: current Alcohol intake frequency: 3 or more drinks per day Alcohol type: beer and hard liquor Smoking Status: Current every day smoker Advance Directives: No Advance Directives Information Provided: No Physical Exam Vital Signs: Vital Signs: Last Vital Signs Temp 97 F 09/28/20 22:04 Pulse 78 09/28/20 22:04 Resp 16 09/28/20 22:04 BP 146/90 H 09/28/20 22:04 Body Mass Index 28.4 Const: General: cooperative, healthy appearing, no acute distress and intoxicated appearing Orientation/consciousness: patient oriented x3 HENMT: Head: Yes normocephalic and Yes atraumatic Mouth: Normal oral and palatal mucosa present Eyes: General: appearance normal, both eyes and all related structures Neck: Neck: Yes normal visual inspection Chest: Chest palpation & inspection: normal inspection of the chest and normal palpation of entire chest wall Resp: Effort & Inspection: normal respiratory effort Auscultation: clear to auscultation bilaterally, no crackles and no rales Cardio: Palpation: normal PMI Rate: regular rate Rhythm: regular rhythm Heart sounds: S1 normal heart sound present and S2 normal heart sound present Peripheral pulses: Peripheral pulses 2+ throughout GI: Inspection: Yes normal to inspection Palpation (GI): Soft to palpation and nontender : General: Yes no CVA tenderness Back/Spine/Pelvis: Back: no CVA tenderness Thoracic/Lumbar Spine: thoracic and lumbar spine normal to inspection Skin: General skin exam: no rashes or lesions noted Neuro: General: patient oriented x3 and no focal motor deficits Extrem: General: Yes normal to inspection, Yes no calf tenderness and No pedal edema MDM - Alcohol MDM Narrative Medical decision making narrative: Patient alcoholic been here multiple times like to sleep in the night and when he gets over refused to go to detox. At this time patient is sober enough to ambulate in straight line without any significant ataxia will give him just of detox places he can call in the morning for placement Differential Diagnosis Differential diagnosis: Likely alcohol dependence Discharge Plan Discharge Clinical Impression: ETOH abuse Patient Disposition: Home, Self-Care Instructions: Abuse of Alcohol (ED) Additional Instructions: Stop alcohol use. Follow up with detox
--- NOTE | 2020-09-29 01:15 | PC.NURSE ---
PT STATES I JUST WANT TO SLEEP PT GIVEN A SANDWICH AND CL SILVIA TO DRINK. PT REFUSING DETOX. PT WAKES TO VOICE, RESPIRATIONS EASY, N/L. SKIN W/D. WILL AMBULATE PT WHEN HE IS FINISHED EATING.
== END 2020-09-29 01:50 | disposition home or self-care (01) ==
PROVIDERS: Emergency Provider Internal Medicine
DX: F10.129 Alcohol abuse with intoxication, unspecified (principal); Y90.9 Presence of alcohol in blood, level not specified; F17.200 Nicotine dependence, unspecified, uncomplicated; Z71.6 Tobacco abuse counseling
CPT/HCPCS: 99283

== ENCOUNTER 2020-10-11 17:42 | Emergency (ER) | payer MEDICAID, SELFPAY ==
--- NOTE | ~2020-10-11 | CT_ITS ---
EXAMINATION: CT HEAD WITHOUT CONTRAST CT CERVICAL SPINE WITHOUT CONTRAST CLINICAL INFORMATION: Fall. COMPARISON: Most recent CT head dated 04/10/2016. TECHNIQUE: Contiguous axial imaging was performed from the skull base to vertex without intravenous administration of contrast. Contiguous axial CT images of the cervical spine were obtained without contrast. Sagittal and coronal reformats were provided and reviewed. This CT examination was performed using dose optimization techniques as appropriate, variously including the following: *Automated exposure control *Adjustment of mA and/or kV according to patient size (this includes techniques or standardized protocols for targeted exams where dose is matched to indication/reason for exam; i.e. extremities or head) *Use of iterative reconstruction technique DLP: 1238 mGy-cm FINDINGS: HEAD: There is no evidence of acute intracranial hemorrhage or territorial infarction. No abnormal mass effect or midline shift is seen. Lemus to white matter differentiation is well preserved. Redemonstration of a mucus cisterna magna. No new extra-axial fluid collections are identified. The ventricles are normal in size. There is no abnormal attenuation within the brain parenchyma. The osseous structures and soft tissues are normal. The mastoid air cells and visualized portions of the paranasal sinuses are well aerated. CERVICAL SPINE: Normal vertebral body alignment. The normal cervical lordosis is maintained. No acute fracture or subluxation. No loss of vertebral body or intervertebral disc height. Right-sided facet arthropathy. No lytic or blastic osseous lesion. Unremarkable prevertebral soft tissues. No abnormal soft tissue mass or fluid collection. Thyroid within normal limits. Visualized lung apices are clear. No significant central canal or neural foraminal stenosis. CT/CT cervical spine wo con IMPRESSION: HEAD: No acute intracranial hemorrhage or mass effect. CERVICAL SPINE: No acute fracture or subluxation. Multilevel right-sided facet arthropathy.
[2020-10-11 18:08] VITALS: BP 129/89; PULSE 70; RESP 18; TEMP 36.6; O2SAT 97; BMI 23.3
--- NOTE | 2020-10-11 18:10 | ED.ALCOHOL ---
HPI - Alcohol General Chief Complaint: Fall Stated Complaint: etoh Time Seen by Provider: 10/11/20 17:54 Source: patient and EMS Mode of arrival: EMS Limitations: no limitations History of Present Illness HPI narrative: Patient intoxicated found on the side of the road with small cut at the forehead likely fell prior to arrival No other injuries noticed, patient is very intoxicated on arrival complaint: alcohol intoxication Related Data Allergies Allergy/AdvReac Type Severity Reaction Status Date / Time clams Allergy Severe HIVES, Verified 09/15/20 14:07 DIFFICULTY BREATHING Review of Systems Review of Systems: Yes Unobtainable due to mental status PMFSH Past Medical History Medical History ETOH abuse High cholesterol HTN (hypertension) Social History Social History Alcohol intake: current Alcohol intake frequency: 3 or more drinks per day Alcohol type: beer and hard liquor Smoking Status: Current every day smoker Advance Directives: No Advance Directives Information Provided: No Physical Exam Vital Signs: Vital Signs: Last Vital Signs Temp 97.9 F 10/11/20 18:08 Pulse 78 10/11/20 19:37 Resp 16 10/11/20 19:37 BP 154/86 H 10/11/20 19:37 Pulse Ox 96 10/11/20 19:37 Body Mass Index 23.3 Const: General: no acute distress and well developed Orientation/consciousness: patient oriented x3 HENMT: Head: Yes No palpable skull fracture present, Yes normocephalic and Yes atraumatic Face images: 1. Sutured laceration 1.5 cm Mouth: Normal oral and palatal mucosa present Eyes: General: appearance normal, both eyes and all related structures Pupils: Equal, round and reactive pupils present EOM: EOMs intact bilaterally Neck: Neck: Yes normal visual inspection, Yes full ROM, Yes trachea midline, No midline deformity and No tender Chest: Chest palpation & inspection: normal palpation of entire chest wall Resp: Effort & Inspection: normal respiratory effort Auscultation: clear to auscultation bilaterally Cardio: Palpation: normal PMI Rate: regular rate Rhythm: regular rhythm Heart sounds: S1 normal heart sound present and S2 normal heart sound present GI: Inspection: Yes normal to inspection Palpation (GI): Soft to palpation Auscultation: normal bowel sounds : General: Yes CVA tenderness Back/Spine/Pelvis: Back: CVA tenderness Thoracic/Lumbar Spine: thoracic and lumbar spine normal to inspection Skin: General skin exam: no rashes or lesions noted Neuro: General: patient oriented x3 and no focal motor deficits Cranial nerves: Yes Equal, round and reactive pupils present Extrem: General: Yes normal to inspection and Yes full ROM Procedures Laceration Laceration 1: Site: face Size (cm): 1 Description: linear Depth: simple, single layer Skin layer closed with: other (Dermabond) MDM - Alcohol MDM Narrative Medical decision making narrative: Patient intoxicated CT head and C-spine negative small laceration on the forehead which was repaired using Dermabond patient does not want detox discharge patient home patient is walkingin a steady gait Differential Diagnosis Differential diagnosis: Likely alcohol dependence Discharge Plan Discharge Clinical Impression: ETOH abuse Forehead laceration Qualifiers: Encounter type: initial encounter Qualified Code(s): S01.81XA - Laceration without foreign body of other part of head, initial encounter Patient Disposition: Home, Self-Care Instructions: Laceration (ED), Abuse of Alcohol (ED) Additional Instructions: Stop drinking alcohol Local care of wound as advised, Dermabond was applied , it will heal of its own
[2020-10-11 18:14] VITALS: RESP 18
[2020-10-11 19:37] VITALS: BP 154/86; PULSE 78; RESP 16; O2SAT 96
--- NOTE | 2020-10-11 20:39 | PC.NURSE ---
this RN went to get the patient up- reports hes not ready to be up walking.
[2020-10-11 21:30] VITALS: PULSE 70; RESP 16; O2SAT 96
--- NOTE | 2020-10-11 22:33 | PC.NURSE ---
this RN went to discharge the patient and the patient was gone with all of his belongings, this RN briefly went over discharge instructions with the patient earlier and once he felt ready to call his friend for a ride. At this time the patient has left the ER.
== END 2020-10-11 22:36 | disposition home or self-care (01) ==
PROVIDERS: Emergency Provider Internal Medicine
DX: S01.81XA Laceration without foreign body of other part of head, initial encounter (principal); M54.2 Cervicalgia; G44.309 Post-traumatic headache, unspecified, not intractable; F10.129 Alcohol abuse with intoxication, unspecified; F17.200 Nicotine dependence, unspecified, uncomplicated; Y90.9 Presence of alcohol in blood, level not specified; W01.0XXA Fall on same level from slipping, tripping and stumbling without subsequent striking against object, initial encounter; Y93.9 Activity, unspecified; Y92.9 Unspecified place or not applicable; Y99.9 Unspecified external cause status; Z71.6 Tobacco abuse counseling; Z71.41 Alcohol abuse counseling and surveillance of alcoholic
CPT/HCPCS: 12011; 70450; 72125; 99284

== ENCOUNTER 2020-11-01 21:02 | Emergency (ER) | payer MEDICAID, SELFPAY ==
--- NOTE | ~2020-11-01 | XR_ITS ---
EXAMINATION: XR elbow LT min 3V CLINICAL INFORMATION: Reason for Exam Fall, pain, swelling COMPARISON: None available at the time of this dictation. TECHNIQUE: 3 frontal lateral oblique views of the elbow were obtained. FINDINGS: There is no fracture or dislocation. Bone alignments are satisfactory. Surrounding soft tissues are normal. No osteolytic or osteoblastic lesion. XR/XR elbow LT min 3V IMPRESSION: No radiographic evidence of acute fracture.
--- NOTE | ~2020-11-01 | CT_ITS ---
EXAMINATION: CT HEAD WITHOUT CONTRAST CT CERVICAL SPINE WITHOUT CONTRAST CLINICAL INFORMATION: Fall. Pain. COMPARISON: 10/11/2020 TECHNIQUE: Multidetector CT imaging of the head and cervical spine was performed without the use of intravenous contrast. Multiplanar reformats are reviewed. This CT examination was performed using dose optimization techniques as appropriate, variously including the following: *Automated exposure control *Adjustment of mA and/or kV according to patient size (this includes techniques or standardized protocols for targeted exams where dose is matched to indication/reason for exam; i.e. extremities or head) *Use of iterative reconstruction technique DLP: 2794 mGy-cm. FINDINGS: There is no evidence of acute intracranial hemorrhage or territorial infarction. No abnormal mass effect or midline shift is seen. Lemus to white matter differentiation is well preserved. No extra-axial fluid collections are identified. The ventricles are normal in size. There is no abnormal attenuation within the brain parenchyma. Thin left parasagittal parietal subgaleal hematoma. Underlying calvarium is intact. Mucosal thickening present within the bilateral maxillary sinuses, left greater than right. Chronic rightward deviation of the osseous nasal septum with leftward deviation anteriorly. Conchal bullosa. Orbits and globes unremarkable. Atlantooccipital alignment is maintained. The vertebral bodies and posterior elements align normally. No acute fracture or subluxation. Vertebral body heights are maintained.No significant degenerative changes are appreciated. No central canal or foraminal narrowing. The cervicomedullary junction and spinal cord are grossly unremarkable. The paraspinal soft tissues are unremarkable. The imaged lung apices are clear CT/CT cervical spine wo con IMPRESSION: No acute intracranial pathology. No cervical spine fracture or malalignment.
--- NOTE | ~2020-11-01 | CT_ITS ---
EXAMINATION: CT CHEST, ABDOMEN AND PELVIS WITH CONTRAST CLINICAL INFORMATION: Reason for Exam Fall, pain COMPARISON: CT chest abdomen pelvis 09/15/2020 TECHNIQUE: Multidetector volumetric imaging was performed from the thoracic inlet through the pubic symphysis during the infusion of 85 mL of Omnipaque 350. Sagittal and coronal reformatted images were obtained on the technologist's workstation. This CT examination was performed using dose optimization techniques as appropriate, variously including the following: Automated exposure control. Adjustment of mA and/or kV according to patient size (this includes techniques or standardized protocols for targeted exams where dose is matched to indication/reason for exam; i.e. extremities or head). Use of iterative reconstruction technique. DLP: 2764 mGy-cm FINDINGS: CHEST: Lung: Again seen are bilateral abnormal lungs with increased reticular nodular markings peripherally with some suggestion of honeycombing. Findings are suggestive of interstitial lung disease. At least 2 small focal nodular densities are seen are unchanged. Calcified granulomas again seen. Some more confluent atelectasis/infiltrate present at the left lung base, slightly worsened previously seen. Mediastinum: The heart is again noted to be enlarged. No aortic aneurysm is present. Multiple mediastinal lymph nodes are unchanged. Multiple smaller aortopulmonary window lymph nodes are present, and unchanged. Pericardium/Pleura: No significant effusion. No pleural mass or thickening. Chest Wall/Axilla: Bilateral small axillary lymph nodes are again seen, but there is no adenopathy. ABDOMEN/PELVIS: Peritoneal Space: No significant free air or free fluid identified. Liver, Gallbladder, Biliary Tree: Again seen is an enlarged liver measuring 20 cm in greatest length which demonstrates marked decreased attenuation consistent with hepatic steatosis. No focal liver mass or bile duct dilatation is seen. The gallbladder is contracted but unremarkable with no evidence of radiopaque gallstones, gallbladder wall thickening, or obvious pericholecystic inflammatory changes. Pancreas: Unremarkable. Spleen: Unremarkable. Adrenal Glands: Unremarkable. Kidneys and Ureters: The kidneys are normal in size, shape, and attenuation. No hydronephrosis, hydroureter, or calculi seen. No perinephric stranding. Bladder: Unremarkable. Gastrointestinal Tract: A small hiatal hernia is present. The small and large bowel are unremarkable. The appendix is unremarkable. Abdominal Wall: No significant hernia is appreciated. Lymph Nodes: No lymphadenopathy. Vascular: The aorta appears normal. The IVC appears unremarkable. PELVIC VISCERA: Prostate and seminal vesicles appear normal. OSSEUS STRUCTURES: A grade 2-3 anterolisthesis of L5 upon S1 is again seen. A compression fracture of L1 with anterior wedging is stable. CT/CT abdomen pelvis w con IMPRESSION: A cause for the patient's acute abdominal pain has not been found. Incidental note made of: Chronic changes in the lungs consistent with some element of interstitial lung disease. Stable small pulmonary nodules, the largest 6 mm. Cardiomegaly with prominent mediastinal lymph nodes. Enlarged fatty liver. Stable grade 3 anterolistheses and stable compression fracture of L1 as described above.
--- NOTE | ~2020-11-01 | CT_ITS ---
EXAMINATION: CT HEAD WITHOUT CONTRAST CT CERVICAL SPINE WITHOUT CONTRAST CLINICAL INFORMATION: Fall. Pain. COMPARISON: 10/11/2020 TECHNIQUE: Multidetector CT imaging of the head and cervical spine was performed without the use of intravenous contrast. Multiplanar reformats are reviewed. This CT examination was performed using dose optimization techniques as appropriate, variously including the following: *Automated exposure control *Adjustment of mA and/or kV according to patient size (this includes techniques or standardized protocols for targeted exams where dose is matched to indication/reason for exam; i.e. extremities or head) *Use of iterative reconstruction technique DLP: 2794 mGy-cm. FINDINGS: There is no evidence of acute intracranial hemorrhage or territorial infarction. No abnormal mass effect or midline shift is seen. Lemus to white matter differentiation is well preserved. No extra-axial fluid collections are identified. The ventricles are normal in size. There is no abnormal attenuation within the brain parenchyma. Thin left parasagittal parietal subgaleal hematoma. Underlying calvarium is intact. Mucosal thickening present within the bilateral maxillary sinuses, left greater than right. Chronic rightward deviation of the osseous nasal septum with leftward deviation anteriorly. Conchal bullosa. Orbits and globes unremarkable. Atlantooccipital alignment is maintained. The vertebral bodies and posterior elements align normally. No acute fracture or subluxation. Vertebral body heights are maintained.No significant degenerative changes are appreciated. No central canal or foraminal narrowing. The cervicomedullary junction and spinal cord are grossly unremarkable. The paraspinal soft tissues are unremarkable. The imaged lung apices are clear CT/CT head/brain wo con IMPRESSION: No acute intracranial pathology. No cervical spine fracture or malalignment.
[2020-11-01 21:08] VITALS: BP 123/74; BP 127/92; PULSE 102; PULSE 104; RESP 18; TEMP 36.3; O2SAT 96; O2SAT 98; BMI 24.3
--- NOTE | 2020-11-01 21:19 | ED_ITS ---
HPI - Alcohol General Chief Complaint: Fall Stated Complaint: etoh Time Seen by Provider: 11/01/20 21:19 Source: patient Mode of arrival: EMS History of Present Illness HPI narrative: 50-year-old male brought in via EMS after being found on the ground on the side of the road with a small head laceration. As per EMS patient was intoxicated and is known to drink approximately 1 pt of vodka a day. Although patient reports loss of consciousness initially when I question the patient he states he does not recall any of the events leading up to the time of being picked up by EMS. Patient complains of pain at the left elbow but denies any headache, dizziness, neck pain and states he is having some pain to the left chest wall. Related Data Allergies Allergy/AdvReac Type Severity Reaction Status Date / Time clams Allergy Severe HIVES, Verified 09/15/20 14:07 DIFFICULTY BREATHING Review of Systems Review of Systems: Pertinent positives and negatives as stated in HPI 10 point review of systems is otherwise negative. PMFSH Past Medical History Source: nursing notes reviewed Medical History ETOH abuse High cholesterol HTN (hypertension) Social History Social History Alcohol intake: current Alcohol intake frequency: 3 or more drinks per day Alcohol type: beer and hard liquor Smoking Status: Current every day smoker Use of substances other than those prescribed or required for medical reasons: No Advance Directives: No Advance Directives Information Provided: Yes Physical Exam Vital Signs: Vital Signs: Last Vital Signs Temp 98.2 F 11/02/20 02:00 Pulse 104 H 11/02/20 02:00 Resp 16 11/02/20 02:00 BP 114/68 11/02/20 02:00 Pulse Ox 98 11/02/20 02:00 Body Mass Index 24.3 VITAL SIGNS: Reviewed. GENERAL: Well developed, well nourished, in no acute distress. HEAD: Normocephalic/superficial laceration approximately 2.5 cm to left posterior occiput EYES: PERRLA, EOMI intact without pain, no nystagmus EARS: Ext canals without abnormality, TMs non-bulging and non-erythematous, no hemotympanum NOSE: Nares patent bilateral OROPHARYNX: no oral lesions noted, posterior pharynx clear without intraoral lacerations NECK: C-collar in place, no adenopathy LUNGS: Normal breath sounds. No adventitious sounds or accessory muscle use. SpO2<97> CARDIOVASCULAR: Regular rate and rhythm without noted murmurs ABDOMEN: Soft, non-tender, non-distended with bowel sounds. MUSCULOSKELETAL: No tenderness, deformities, or effusions noted on gross inspection. EXTREMITIES: No cyanosis, clubbing or edema, left elbow is noted to be swollen. SKIN: Inspection of the skin reveals no rashes NEUROLOGIC: Alert and oriented x 4. Strength and sensation to light touch were grossly intact x 4. Course Course Course Narrative: 50-year-old male with history and clinical presentation consistent with alcohol intoxication and suspect fall. Review of all investigations negative for any acute findings and laceration repaired with bacitracin and Band-Aid. Patient received Tdap. Patient is otherwise continuing to detox and there are no acute medical conditions currently. Reevaluation(s) Reevaluation #1: Patient placed in physician observation because the patient needed more time to become sober. At the time observation was started the patient's vital signs were stable, patient is alert and oriented but intoxicated, neuro: Nonfocal, CV RRR, lungs clear Time: 02:00 Reevaluation #2: Patient removed from physician observation. Noted to be clinically sober with a steady gait and tolerating p.o. vital signs stable, NAD, CTAB, CV RRR, abdomen nontender, neuro: Nonfocal Time: 06:45 [facility] - Alcohol Lab Data Result diagrams: 11/01/20 22:34 11/01/20 22:34 Labs: Lab Results 11/01/20 11/01/20 11/01/20 Range/Units 22:34 22:34 22:34 WBC 4.4 L (4.8-10.8) X10*3/uL RBC 4.16 L (4.60-5.80) X10*6/uL Hgb 12.6 L (14.0-18.0) g/dl Hct 39.6 L (42-52) % MCV 95.2 (80-98) fL MCH 30.3 (27.0-33.0) pg MCHC 31.8 (31.0-36.0) g/dl RDW 15.8 (11.0-16.0) % Plt Count 276 (160-400) X10*3/uL MPV 10.3 (9.4-12.4) fL Immature Gran % (Auto) 0.5 H (0.0-0.4) % Neut % (Auto) 74.4 H (45-73) % Lymph % (Auto) 11.4 L (20-40) % [place] % (Auto) 9.3 (2-11) % Eos % (Auto) 3.9 (0-4) % Baso % (Auto) 0.5 (0-2) % Lymph # (Auto) 0.5 L (1.2-4.9) X10*3/uL [place] # (Auto) 0.4 (0.1-1.2) X10*3/uL Eos # (Auto) 0.2 (0.0-0.4) X10*3/uL Baso # (Auto) 0.0 (0.0-0.2) X10*3/uL Abs Immat Gran (auto) 0.02 (0.00-0.03) X10*3/uL Absolute Neuts (auto) 3.3 (2.0-8.3) X10*3/uL Absolute Nucleated RBC 0.000 (0.0-0.012) X10*3/uL Nucleated RBC % (auto) 0.0 (0.0-0.2) /100WBC Smear Tech's Comments VERIFIED PT 12.2 (10.8-13.0) SEC INR 1.0 (0.9-1.1) Sodium 141 (135-145) mmol/L Potassium 4.1 (3.3-5.1) mmol/L Chloride 108 (96-108) mmol/L Carbon Dioxide 22 (22-29) mmol/L Anion Gap 15 (12-20) BUN 20 H (9-16) mg/dL Creatinine 0.95 (0.5-1.4) mg/dL Estim Creat Clear Calc 90.0 Estimated GFR > 60 Random Glucose 118 H D (60-115) mg/dL Calcium 7.9 L (8.4-10.2) mg/dL Total Bilirubin 0.4 (0.0-1.0) mg/dL AST 47 H D (5-37) U/L ALT 32 (0-40) U/L Alkaline Phosphatase 72 (39-117) U/L Total Protein 7.7 (6.5-8.0) g/dL Albumin 3.3 L (3.5-5.0) g/dL Urine Color Urine Appearance Urine pH (5.0-8.0) Ur Specific [place] (1.005-1.025) Urine Protein (NEG-TRACE) MG/DL Urine Glucose (UA) (NEG) MG/DL Urine Ketones (NEG) MG/DL Urine Blood (NEG) Urine Nitrite (NEG) Ur Leukocyte Esterase (NEG) Urine Opiates Screen (Not Detect) Ur Barbiturates Screen (Not Detect) Ur Phencyclidine Scrn (Not Detect) Ur Amphetamines Screen (Not Detect) U Benzodiazepines Scrn (Not Detect) Urine Cocaine Screen (Not Detect) U Marijuana (THC) Screen (Not Detect) Ethyl Alcohol mg/dL 11/01/20 11/02/20 11/02/20 Range/Units 22:34 00:57 00:57 WBC (4.8-10.8) X10*3/uL RBC (4.60-5.80) X10*6/uL Hgb (14.0-18.0) g/dl Hct (42-52) % MCV (80-98) fL MCH (27.0-33.0) pg MCHC (31.0-36.0) g/dl RDW (11.0-16.0) % Plt Count (160-400) X10*3/uL MPV (9.4-12.4) fL Immature Gran % (Auto) (0.0-0.4) % Neut % (Auto) (45-73) % Lymph % (Auto) (20-40) % [place] % (Auto) (2-11) % Eos % (Auto) (0-4) % Baso % (Auto) (0-2) % Lymph # (Auto) (1.2-4.9) X10*3/uL [place] # (Auto) (0.1-1.2) X10*3/uL Eos # (Auto) (0.0-0.4) X10*3/uL Baso # (Auto) (0.0-0.2) X10*3/uL Abs Immat Gran (auto) (0.00-0.03) X10*3/uL Absolute Neuts (auto) (2.0-8.3) X10*3/uL Absolute Nucleated RBC (0.0-0.012) X10*3/uL Nucleated RBC % (auto) (0.0-0.2) /100WBC Smear Tech's Comments PT (10.8-13.0) SEC INR (0.9-1.1) Sodium (135-145) mmol/L Potassium (3.3-5.1) mmol/L Chloride (96-108) mmol/L Carbon Dioxide (22-29) mmol/L Anion Gap (12-20) BUN (9-16) mg/dL Creatinine (0.5-1.4) mg/dL Estim Creat Clear Calc Estimated GFR Random Glucose (60-115) mg/dL Calcium (8.4-10.2) mg/dL Total Bilirubin (0.0-1.0) mg/dL AST (5-37) U/L ALT (0-40) U/L Alkaline Phosphatase (39-117) U/L Total Protein (6.5-8.0) g/dL Albumin (3.5-5.0) g/dL Urine Color YELLOW Urine Appearance CLEAR Urine pH 5.5 (5.0-8.0) Ur Specific [place] 1.020 (1.005-1.025) Urine Protein NEG (NEG-TRACE) MG/DL Urine Glucose (UA) NEG (NEG) MG/DL Urine Ketones NEG (NEG) MG/DL Urine Blood NEG (NEG) Urine Nitrite NEG (NEG) Ur Leukocyte Esterase NEG (NEG) Urine Opiates Screen Not Detected (Not Detect) Ur Barbiturates Screen Not Detected (Not Detect) Ur Phencyclidine Scrn Not Detected (Not Detect) Ur Amphetamines Screen Not Detected (Not Detect) U Benzodiazepines Scrn Not Detected (Not Detect) Urine Cocaine Screen Not Detected (Not Detect) U Marijuana (THC) Screen Not Detected (Not Detect) Ethyl Alcohol 226 mg/dL Discharge Plan Discharge Clinical Impression: Alcohol intoxication, Laceration Patient Disposition: Home, Self-Care Instructions: Laceration (ED), Alcohol Intoxication (ED), Laceration Without Closure (ED) Additional Instructions: Return to the emergency room for any acute worsening of your symptoms. Referrals: Physician,Unknown [Primary Care Provider] - 2 days
[2020-11-01] MEDS: Diphth,Pertus(ACell),Tet Adult 0.5 ML SYRINGE IM (22:42)
[2020-11-01 22:53] LABS: Basophils Percent Auto 0.5 % (0-2); Eosinophils Absolute Auto 0.2 X10*3/uL (0.0-0.4); Eosinophils Percent Auto 3.9 % (0-4); Hematocrit 39.6 % (42-52); Hemoglobin 12.6 g/dl (14.0-18.0); Imm Gran Abs Auto 0.02 X10*3/uL (0.00-0.03); Imm Gran Pct Auto 0.5 % (0.0-0.4); Lymphocytes Absolute Auto 0.5 X10*3/uL (1.2-4.9); Lymphocytes Percent Auto 11.4 % (20-40); MANUAL DIFF FLAG SCAN; Mean Corpuscular HGB Conc 31.8 g/dl (31.0-36.0); Mean Corpuscular Hemoglobin 30.3 pg (27.0-33.0); Mean Corpuscular Volume 95.2 fL (80-98); Mean Platelet Volume 10.3 fL (9.4-12.4); Monocytes Absolute Auto 0.4 X10*3/uL (0.1-1.2); Monocytes Percent Auto 9.3 % (2-11); Neutrophils Absolute Auto 3.3 X10*3/uL (2.0-8.3); Neutrophils Percent Auto 74.4 % (45-73); Platelet Count 276 X10*3/uL (160-400); Red Blood Count 4.16 X10*6/uL (4.60-5.80); Red Cell Distribution Width 15.8 % (11.0-16.0); SCAN SMEAR FLAG 1; White Blood Count 4.4 X10*3/uL (4.8-10.8)
[2020-11-01 23:04] LABS: Ethanol 226 mg/dL
[2020-11-01 23:05] LABS: Prothrombin Time 12.2 SEC (10.8-13.0)
[2020-11-01 23:12] LABS: Alanine Aminotransferase 32 U/L (0-40); Albumin Level 3.3 g/dL (3.5-5.0); Alkaline Phosphatase 72 U/L (39-117); Anion Gap 15 (12-20); Aspartate Amino Transferase 47 U/L (5-37); Bilirubin Total 0.4 mg/dL (0.0-1.0); Blood Urea Nitrogen 20 mg/dL (9-16); Calcium 7.9 mg/dL (8.4-10.2); Carbon Dioxide 22 mmol/L (22-29); Chloride 108 mmol/L (96-108); Estimated Glomerular Filt Rate > 60; Glucose Random 118 mg/dL (60-115); Potassium 4.1 mmol/L (3.3-5.1); Sodium 141 mmol/L (135-145); Total Protein 7.7 g/dL (6.5-8.0)
[2020-11-01 23:17] LABS: SLIDE REVIEW VERIFIED
[2020-11-01] MEDS: iohexoL 350 MG/ML 100 ML INFUS..BTL 85 ML IV (23:55)
[2020-11-02] VITALS: BP 112/72; PULSE 97; RESP 16; TEMP 37; O2SAT 97
[2020-11-02 01:05] LABS: Appearance Urine CLEAR; Color Urine YELLOW; Glucose Urine UA NEG (NEG); Leukocyte Esterase Urine NEG (NEG); Nitrite Urine NEG (NEG); PH 5.5 (5.0-8.0); UACC Culture Trigger NO; Urine Blood NEG (NEG); Urine Ketones NEG (NEG); Urine Protein NEG (NEG-TRACE)
[2020-11-02 01:21] LABS: Amphetamine Screen Urine Not Detected (Not Detect); Barbiturates, Urine Not Detected (Not Detect); Benzodiazepines Screen Urine Not Detected (Not Detect); Cannabinoid Screen Urine Not Detected (Not Detect); Cocaine Screen Urine Not Detected (Not Detect); Opiate Screen Urine Not Detected (Not Detect); Phencyclidine Screen Urine Not Detected (Not Detect)
[2020-11-02] MEDS: Bacitracin Oint 14 GM TUBE 1 APPL TOPICAL (01:39)
[2020-11-02 02:00] VITALS: BP 114/68; PULSE 104; RESP 16; TEMP 36.8; O2SAT 98
--- NOTE | 2020-11-02 06:39 | PC.NURSE ---
PT AMBULATORY TO BATHROOM WITH STEADY GAIT. GIVEN SANDWICH AND JUICE, PER PROVIDER REQUEST.
== END 2020-11-02 07:05 | disposition home or self-care (01) ==
PROVIDERS: Emergency Provider Student in an Organized Health Care Education/Training Program
DX: S01.01XA Laceration without foreign body of scalp, initial encounter (principal); F10.129 Alcohol abuse with intoxication, unspecified; G44.309 Post-traumatic headache, unspecified, not intractable; M54.6 Pain in thoracic spine; M54.2 Cervicalgia; R10.9 Unspecified abdominal pain; Y90.7 Blood alcohol level of 200-239 mg/100 ml; W01.0XXA Fall on same level from slipping, tripping and stumbling without subsequent striking against object, initial encounter; Y93.9 Activity, unspecified; Y92.9 Unspecified place or not applicable; Y99.9 Unspecified external cause status; F17.200 Nicotine dependence, unspecified, uncomplicated; Z71.6 Tobacco abuse counseling
CPT/HCPCS: 36415; 70450; 71260; 72125; 73080; 74177; 80053; 80307; 80320; 81003; 85025; 85610; 90471; 90715; 99284; Q9967

== ENCOUNTER 2020-11-04 17:00 | Emergency (ER) | payer MEDICAID, SELFPAY ==
--- NOTE | 2020-11-04 | ECG_ITS ---
Test Reason : AMS Blood Pressure : / mmHG Vent. Rate : 106 BPM Atrial Rate : 106 BPM P-R Int : 218 ms QRS Dur : 096 ms QT Int : 332 ms P-R-T Axes : 027 -20 018 degrees QTc Int : 441 ms Sinus tachycardia with 1st degree A-V block Inferior infarct , age undetermined Abnormal ECG When compared with ECG of 15-SEP-2020 19:15, No significant change was found Referred By: Generic ED Physician Electronically Signed By:SUNDAY JARAMILLO MD
--- NOTE | ~2020-11-04 | CT_ITS ---
EXAMINATION: CT BRAIN AND CT CERVICAL SPINE WITHOUT CONTRAST. CLINICAL INFORMATION: Status post fall with head strike plus EtOH abuse. COMPARISON: None TECHNIQUE: 5 mm thin axial and reformatted 2 mm thin sagittal and coronal images of brain were obtained without contrast. Axial 3 mm thin and reformatted 2 mm thin sagittal and coronal images of cervical spine were obtained. DLP 1333 FINDINGS: BRAIN: There is no acute intra-axial, extra-axial bleed, masses or midline shift. There is no acute infarction in evolution. The lateral ventricles are symmetrical in size and configuration without enlargement. A prominent cisterna magna. The bone windows reveal no calvarial abnormality.. The yao to white matter difference is maintained normal. There is no scalp abnormality. There is minimal mucoperiosteal thickening left maxillary sinus. CERVICAL SPINE: There is normal cervical lordosis. The vertebral heights and alignment is normal. The craniovertebral junction and the C1-C2 alignment is normal. No visible acute fracture, dislocation or subluxation seen. There is mild facet joint arthropathy bilaterally. The prevertebral and paravertebral soft tissues are normal. The thyroid lobes are symmetrical. The lung apices are clear. CT/CT cervical spine wo con IMPRESSION: No acute intracranial process seen. There is no acute fracture or dislocation. The craniovertebral junction and the C1-C2 alignment is normal.
--- NOTE | ~2020-11-04 | CT_ITS ---
EXAMINATION: CT BRAIN AND CT CERVICAL SPINE WITHOUT CONTRAST. CLINICAL INFORMATION: Status post fall with head strike plus EtOH abuse. COMPARISON: None TECHNIQUE: 5 mm thin axial and reformatted 2 mm thin sagittal and coronal images of brain were obtained without contrast. Axial 3 mm thin and reformatted 2 mm thin sagittal and coronal images of cervical spine were obtained. DLP 1333 FINDINGS: BRAIN: There is no acute intra-axial, extra-axial bleed, masses or midline shift. There is no acute infarction in evolution. The lateral ventricles are symmetrical in size and configuration without enlargement. A prominent cisterna magna. The bone windows reveal no calvarial abnormality.. The yao to white matter difference is maintained normal. There is no scalp abnormality. There is minimal mucoperiosteal thickening left maxillary sinus. CERVICAL SPINE: There is normal cervical lordosis. The vertebral heights and alignment is normal. The craniovertebral junction and the C1-C2 alignment is normal. No visible acute fracture, dislocation or subluxation seen. There is mild facet joint arthropathy bilaterally. The prevertebral and paravertebral soft tissues are normal. The thyroid lobes are symmetrical. The lung apices are clear. CT/CT head/brain wo con IMPRESSION: No acute intracranial process seen. There is no acute fracture or dislocation. The craniovertebral junction and the C1-C2 alignment is normal.
[2020-11-04 17:03] VITALS: BP 102/68; PULSE 100; RESP 18; TEMP 36.5; O2SAT 96; BMI 35.5
--- NOTE | 2020-11-04 17:30 | PC.NURSE ---
Per robby velasco no need for lab work.
--- NOTE | 2020-11-04 17:56 | PC.NURSE ---
pt adamantly refusing blood work. regarding etoh level and potential for internal bleeding. Pt verbalized saying i dont' give a fuck . provider aware.
--- NOTE | 2020-11-04 18:10 | ED.ALCOHOL ---
HPI - Alcohol General Chief Complaint: ETOH/Substance Use Stated Complaint: ETOH,FALL,-LOC,-THINNERS,+HS,+COLLAR Time Seen by Provider: 11/04/20 17:58 Source: patient and EMS Mode of arrival: EMS Limitations: no limitations History of Present Illness HPI narrative: 50 y/o male with history of daily ETOH abuse ( 1 pint of vodka per day), HTN & HLD not on medications who presents to the ED via EMS from home after he tripped and fell down wooden stairs at home. He hit the back of his head on the stairs. He did not lose consciousness but cannot say how 911 was called. He denies being on any blood thinner. He lives at home with his girlfriend who he reports does not know he is here. He reports a headache and some neck pain on arrival. He is refusing lab work. He was collared by EMS but does not have a C-collar on when assessed. He was last seen here 3 days ago after he was found on the side of the road with a small head laceration. He was intoxicated. ETOH level was 226. MD complaint: alcohol intoxication (s/p fall) Last drink: Hours (ago) Chronic alcohol use: Yes Previous visits for alcohol intoxication: Yes Recent trauma: Yes Associated symptoms: denies other symptoms Treatments prior to arrival: cervical collar Related Data Allergies Allergy/AdvReac Type Severity Reaction Status Date / Time clams Allergy Severe HIVES, Verified 09/15/20 14:07 DIFFICULTY BREATHING Review of Systems Review of Systems: Constitutional: No Fever, No Chills ENT/Mouth: No sore throat, No Rhinorrhea, No Swallowing Difficulty Eyes: No Eye Pain, No Swelling, No Redness Cardiovascular: No Chest Pain, No SOB, No Orthopnea, No Edema Respiratory: No Cough, No Sputum, No Wheezing, No dyspnea Gastrointestinal: No Nausea, No Vomiting, No Diarrhea, No abdominal Pain Genitourinary: No Dysuria, No Urinary Frequency, No Hematuria Musculoskeletal: No joint pain, No Myalgias Skin: + Skin Lesions, No rash Neuro: No Weakness, No Numbness, No Dizziness, + Headache Psych: No Anxiety/Panic, No Depression, No SI Heme/Lymph: No Bruising, No Lymphadenopathy Endocrine: No Polyuria, No Polydipsia PMFSH Past Medical History Attestation statement: The following information was validated with the patient. Medical History ETOH abuse High cholesterol HTN (hypertension) Social History Social History Alcohol intake: current Alcohol intake frequency: 3 or more drinks per day Alcohol type: beer, wine, hard liquor and other Smoking Status: Current every day smoker Advance Directives: No Advance Directives Information Provided: Yes Physical Exam Vital Signs: Vital Signs: Last Vital Signs Temp 97.7 F 11/04/20 17:03 Pulse 100 11/04/20 17:03 Resp 16 11/04/20 22:00 BP 102/68 11/04/20 17:03 Pulse Ox 96 11/04/20 17:03 Body Mass Index 35.5 Appearance: Alert. Oriented X2. No acute distress. Appears intociated. Head: superficial abrasion to the occipitial area without active bleeding Neck: normal inspection, no cervical spinal tenderness or step off deformity Eyes: Pupils equal, round and reactive to light. ENT: Pharynx normal. Neck: Normal inspection. Neck supple. CVS: Normal heart rate and rhythm. Pulses normal. Respiratory: No respiratory distress. Breath sounds normal. Abdomen: Soft and nontender. +BS x4 Skin: Skin warm and dry. Normal skin color. Normal skin turgor. No rashes. Extremities: No lower extremity edema. Neuro: Oriented X 2. Slurred speech and smells of alcohol, appears intoxicated. moves all extremities, non-focal. Course Course Course Narrative: 50 y/o male presenting after he fell down a set of stairs while intoxicated. Minor abrasions seen on the back of his scalp but do not appear new - documented on prior visit 11/01. Given unreliable history and exam will get CT head/neck and lab workup. Patient initially refusing blood work but agreeable once importance was discussed. Reevaluation(s) Reevaluation #1: Patient again refusing blood work. He still appears intoxicated several hours after being here in the ER. He is sleeping between care. He offers no complaints. CT head and C-spine showed no acute abnormalities. Will continue to monitor until clinically sober. Reevaluation #2: Physician observation started at 12am. Patient placed in physician observation because patient is awaiting to be clinically sober. He is intoxicated after drinking 1+ pint of vodka. At the time observation was started patient's vital signs were stable. Patient is alert and oriented. Neuro exam is non-focal. CV: RRR and lungs are clear. Will continue to monitor. MDM - Alcohol Differential Diagnosis Differential diagnosis: Likely alcohol dependence, alcohol withdrawal delirium, hypomagnesemia, alcohol intoxication, alcohol ketoacidosis, alcohol withdrawal syndrome and alcohol withdrawal seizure Medical Records Attestation: I reviewed the patient's medical records. ECG Data Attestation: I personally reviewed and interpreted this ECG as follows: ECG interpretation date: 11/04/20 Interpretation: sinus tachycardia with 1st degree AV block, HR 106 bpm, GA interval prolonged 218 ms, normal QTc, no ST segment elevations
[2020-11-04 22:00] VITALS: RESP 16
--- NOTE | 2020-11-04 22:55 | PC.NURSE ---
pt continues to refuse labs when awake.
[2020-11-05 02:00] VITALS: RESP 18
[2020-11-05 05:58] VITALS: BP 134/99; PULSE 106; RESP 16; O2SAT 96
== END 2020-11-05 06:01 | disposition home or self-care (01) ==
PROVIDERS: Emergency Provider Internal Medicine
DX: S01.01XA Laceration without foreign body of scalp, initial encounter (principal); G44.309 Post-traumatic headache, unspecified, not intractable; F10.129 Alcohol abuse with intoxication, unspecified; M54.2 Cervicalgia; I10 Essential (primary) hypertension; W10.9XXA Fall (on) (from) unspecified stairs and steps, initial encounter; Y93.9 Activity, unspecified; Y92.9 Unspecified place or not applicable; Y99.9 Unspecified external cause status; F17.200 Nicotine dependence, unspecified, uncomplicated; Z71.6 Tobacco abuse counseling; Y90.8 Blood alcohol level of 240 mg/100 ml or more; Z79.01 Long term (current) use of anticoagulants; Z79.899 Other long term (current) drug therapy
CPT/HCPCS: 70450; 72125; 93005; 99285

== ENCOUNTER 2021-01-25 12:18 | Emergency (ER) | payer MEDICAID, SELFPAY ==
--- NOTE | ~2021-01-25 | CT_ITS ---
EXAMINATION: CT CERVICAL SPINE WITHOUT CONTRAST CLINICAL INFORMATION: Trauma. Fall. COMPARISON: None TECHNIQUE: Axial images through the cervical spine without contrast. Sagittal and coronal reconstructed images on the technologist workstation were performed. This CT examination was performed using dose optimization techniques as appropriate, variously including the following: *Automated exposure control *Adjustment of mA and/or kV according to patient size (this includes techniques or standardized protocols for targeted exams where dose is matched to indication/reason for exam; i.e. extremities or head) *Use of iterative reconstruction technique DLP: 414 mGy-cm FINDINGS: There is mild curvature of the lower cervical and upper thoracic spine to the left. Bone alignment is otherwise normal. No fracture or dislocation is seen. Disc spaces are normal. There is mild degenerative spondylosis at C4-C5. There is mild facet arthritis C3-C4, C4-C5 and C5-C6 on the right. Prevertebral soft tissues are normal. There is shotty cervical lymphadenopathy. Visualized lung apices are clear. There are small calcifications in both parotid glands. CT/CT cervical spine wo con IMPRESSION: Mild degenerative changes. No fracture seen.
--- NOTE | ~2021-01-25 | CT_ITS ---
EXAMINATION: CT BRAIN AND CT FACIAL BONES WITHOUT CONTRAST. FALL, TRAUMA. CLINICAL INFORMATION: Fall. Trauma. COMPARISON: None TECHNIQUE: 5 mm thin axial and reformatted 2 mm thin sagittal and coronal images of brain were obtained without contrast. Subsequently axial 3 mm thin and reformatted 1.5 mm thin sagittal and coronal images of facial bones were obtained. Subsequently axial 3 mm thin and reformatted 1.5 minute thin sagittal and coronal images of facial bones were obtained. DLP [id number]. FINDINGS: BRAIN: There is no acute intra-axial, extra-axial bleed, masses or midline shift. There is no acute infarct in evolution. The lateral ventricles are symmetrical in size and configuration without enlargement. There is a prominent cisterna magna. Bone windows reveal no calvarial abnormality. Bilateral paranasal sinuses and mastoid air cells are well-aerated. There is no scalp soft tissue abnormality. FACIAL BONES: There is mild periosteal thickening bilateral maxillary, left anterior ethmoid and left sphenoid sinuses. Rest of the paranasal sinuses and mastoid air cells are well-aerated. Bilateral drainage pathways are widely patent. The bony sinus garcia are intact. There is mild deviation of nasal septum to the left with a bony spur. There is molly bullosa of middle turbinates. There is no maxillofacial, nasal or mandibular fractures. The bilateral TM joints are symmetrical. There is a left lower canine periapical disease. Several small cavities are seen along the upper bilateral molar tooth. There is moderate anterior mandibular soft tissue swelling no additional maxillofacial and nasal soft tissue swelling seen. CT/CT facial bones wo con IMPRESSION: No acute intracranial process. Moderate anterior mandibular soft tissue swelling likely related to injury. There are several cavities along the upper and lower jaw with no fracture. Chronic bilateral maxillary, left anterior ethmoid and left sphenoid sinus inflammatory changes. Molly bullosa bilateral middle turbinates.
[2021-01-25 12:23] VITALS: BP 125/79; PULSE 130; O2SAT 97
[2021-01-25 12:28] VITALS: BP 128/73; PULSE 124; RESP 16; O2SAT 95
--- NOTE | 2021-01-25 12:51 | ECG_ITS ---
Test Reason : FALL Blood Pressure : / mmHG Vent. Rate : 118 BPM Atrial Rate : 118 BPM P-R Int : 174 ms QRS Dur : 094 ms QT Int : 326 ms P-R-T Axes : 042 -15 043 degrees QTc Int : 456 ms Sinus tachycardia Cannot rule out Inferior infarct (cited on or before 04-NOV-2020) Abnormal ECG When compared with ECG of 04-NOV-2020 17:49, IA interval has decreased Referred By: Jana Bullock Electronically Signed By:Kahlil Perales
[2021-01-25] MEDS: 0.9 % Sodium Chloride 2,000 ML 999 ML IV (13:00)
[2021-01-25 13:06] LABS: MANUAL DIFF FLAG NO
--- NOTE | 2021-01-25 13:07 | ED_ITS ---
HPI - Fall General Chief Complaint: Fall Stated Complaint: FALL, LAC TO CHIN/ABRASIONS Time Seen by Provider: 01/25/21 12:45 Source: EMS Mode of arrival: EMS Limitations: no limitations History of Present Illness HPI Narrative: 50-year-old male with a past medical history of high blood pressure, high cholesterol alcohol abuse here after trip and fall. Patient tells me he was walking and tripped falling forward hitting his chin on the ground. Denies loss of consciousness. Has laceration present on the chin. M ild discomfort on the site. No headache, vision changes, nausea, vomiting, dizziness, neck pain, back pain, chest pain or abdominal pain. He does report to drinking several drinks today. Will not quantify. Drinks daily. No substance use additionally Related Data Allergies Allergy/AdvReac Type Severity Reaction Status Date / Time clams Allergy Severe HIVES, Verified 09/15/20 14:07 DIFFICULTY BREATHING Review of Systems Review of Systems: Yes all other systems are reviewed and are negative Constitutional: Constitutional: Reports no additional constitutional complaints, Denies body ache(s), Denies chills, Denies fever(s), Denies headache(s) and Denies weakness Eyes: Eyes: Reports no additional eye complaints and Denies change in vision ENT: Reports system reviewed and no additional complaints, except as documented, Denies dizziness, Denies headache(s), Denies nasal congestion, Denies nasal discharge and Denies neck pain Cardiovascular: Cardiovascular: Reports no additional cardiovascular complaints, Denies chest pain, Denies leg edema and Denies dyspnea Respiratory: Respiratory: Reports no additional respiratory complaints, Denies cough and Denies dyspnea Gastrointestinal: Gastrointestinal: Reports no additional gastrointestinal complaints, Denies abdominal pain, Denies diarrhea, Denies nausea and Denies vomiting Genitourinary: Genitourinary: Denies urinary incontinence Musculoskeletal: Musculoskeletal: Reports no additional musculoskeletal complaints, Denies back pain, Denies arthralgias, Denies joint swelling, Denies neck pain, Denies numbness and Denies tingling Integumentary/Breasts: Skin/Breast: Reports system reviewed and no additional complaints, except as docu and Denies rash Comments: Laceration Neurologic: Reports system reviewed and no additional complaints, except as documented, Denies Abnormal speech present, Denies dizziness, Denies headache(s), Denies numbness, Denies tingling and Denies weakness PMFSH Past Medical History Attestation statement: The following information was validated with the patient. Source: old records reviewed and nursing notes reviewed Medical History ETOH abuse High cholesterol HTN (hypertension) Social History Social History Alcohol intake: current Alcohol intake frequency: 3 or more drinks per day Alcohol type: beer, wine, hard liquor and other Advance Directives: No Advance Directives Information Provided: No Physical Exam Vital Signs: Vital Signs: Last Vital Signs Pulse 112 H 01/25/21 17:09 Resp 16 01/25/21 17:09 BP 140/97 H 01/25/21 17:09 Pulse Ox 99 01/25/21 17:09 Const: General: cooperative, healthy appearing, comfortable and no acute distress Orientation/consciousness: patient oriented x3 Limitations: no limitations HENMT: Head: Yes normal to inspection Ears: hearing grossly normal bilaterally and TM's normal bilaterally General nose exam: Normal external nose present Face and sinus: Yes normal facial exam Face images: 1. 6 cm laceration Mouth: Normal oral and palatal mucosa present Throat: Yes posterior oropharynx normal, Yes tonsils normal and Yes uvula midline Eyes: General: appearance normal, both eyes and all related structures Pupils: Equal, round and reactive pupils present Neck: Other: No midline tenderness, step-offs or deformities Neck: Yes normal visual inspection, Yes full ROM and Yes no lymphadenopathy Chest: Chest palpation & inspection: normal inspection of the chest Resp: Effort & Inspection: normal respiratory effort Auscultation: clear to auscultation bilaterally Cardio: Rate: tachycardic Rhythm: regular rhythm Peripheral pulses: Peripheral pulses 2+ throughout GI: Inspection: Yes normal to inspection Palpation (GI): Soft to palpation and nontender Auscultation: normal bowel sounds Back/Spine/Pelvis: Thoracic/Lumbar Spine: thoracic and lumbar spine normal to inspection Skin: General skin exam: no rashes or lesions noted Neuro: Other: + alcohol on breath General: patient oriented x3, no focal motor deficits and normal sensation to monofilament Cranial nerves: Yes Equal, round and reactive pupils present, Yes Bilaterally intact EOM present, Yes Nystagmus not present, Yes Normal facial strength present and Yes Midline tongue present Cognition (Neuro): normal cognition Speech: No Abnormal speech present Gait exam (Neuro): Normal gait present Motor exam (neuro): 5/5 motor strength present throughout Extrem: General: Yes normal to inspection Course Course Course Narrative: 50-year-old male here after mechanical fall with laceration to the chin. Patient admits to drinking today. Normal neuro exam. Tachycardic 124 on arrival. Hemodynamically stable. Will check CT head/neck/face. Did tachycardia will check labs, place PIV and give normal saline bolus. Check EKG. Will need wound repair 1714-labs are unremarkable. CT negative. See wound repair note. Patient tolerated some food. His heart rate has improved although he is still mildly tachycardic. He tells me this is normal for him. On review of previous notes he has been noted to be tachycardic during his previous ER visits. He had spoke to the recovery team and declined detox. Will need to be clinically sober prior to discharge home. 1809-Walked with steady gait back and forth with bathroom. A&Ox4. Will discharge home. Reviewed worrisome signs and symptoms when to return to the emergency department. Comfortable discharge home. Procedures Laceration Laceration 1: Site: face Size (cm): 6 Description: linear Depth: simple, single layer Local Anesthetic: lidocaine 2% Amount of anesthesia used (mL): 5 Pre-repair: wound explored and irrigated extensively Skin layer closed with: vicryl Size (cm): 5-0 Number of sutures: 8 Technique: simple, interrupted MDM - Fall Medical Records Attestation: I reviewed the patient's medical records. Lab Data Attestation: I reviewed the patient's lab results. Result diagrams: 01/25/21 13:01 01/25/21 13:01 Labs: Lab Results 01/25/21 01/25/21 01/25/21 Range/Units 13:01 13:01 13:01 WBC 5.8 (4.8-10.8) X10*3/uL RBC 3.88 L (4.60-5.80) X10*6/uL Hgb 11.0 L (14.0-18.0) g/dl Hct 33.8 L (42-52) % MCV 87.1 (80-98) fL MCH 28.4 (27.0-33.0) pg MCHC 32.5 (31.0-36.0) g/dl RDW 14.0 (11.0-16.0) % Plt Count 242 (160-400) X10*3/uL MPV 9.4 (9.4-12.4) fL Immature Gran % (Auto) 0.7 H (0.0-0.4) % Neut % (Auto) 76.5 H (45-73) % Lymph % (Auto) 10.8 L (20-40) % Rawlins % (Auto) 8.2 (2-11) % Eos % (Auto) 3.6 (0-4) % Baso % (Auto) 0.2 (0-2) % Lymph # (Auto) 0.6 L (1.2-4.9) X10*3/uL Rawlins # (Auto) 0.5 (0.1-1.2) X10*3/uL Eos # (Auto) 0.2 (0.0-0.4) X10*3/uL Baso # (Auto) 0.0 (0.0-0.2) X10*3/uL Abs Immat Gran (auto) 0.04 H (0.00-0.03) X10*3/uL Absolute Neuts (auto) 4.4 (2.0-8.3) X10*3/uL Absolute Nucleated RBC 0.000 (0.0-0.012) X10*3/uL Nucleated RBC % (auto) 0.0 (0.0-0.2) /100WBC Sodium 133 L (135-145) mmol/L Potassium 3.9 (3.3-5.1) mmol/L Chloride 103 (96-108) mmol/L Carbon Dioxide 18 L (22-29) mmol/L Anion Gap 16 (12-20) BUN 11 (9-16) mg/dL Creatinine 0.66 (0.5-1.4) mg/dL Estim Creat Clear Calc TNP Estimated GFR > 60 Random Glucose 98 (60-115) mg/dL Calcium 7.8 L (8.4-10.2) mg/dL Magnesium 1.7 (1.6-2.6) mg/dL Total Bilirubin 0.3 (0.0-1.0) mg/dL Direct Bilirubin < 0.2 (0.0-0.5) mg/dL AST 35 (5-37) U/L ALT 17 (0-40) U/L Alkaline Phosphatase 58 (39-117) U/L Total Protein 7.4 (6.5-8.0) g/dL Albumin 3.2 L (3.5-5.0) g/dL Urine Opiates Screen (Not Detect) Ur Barbiturates Screen (Not Detect) Ur Phencyclidine Scrn (Not Detect) Ur Amphetamines Screen (Not Detect) U Benzodiazepines Scrn (Not Detect) Urine Cocaine Screen (Not Detect) U Marijuana (THC) Screen (Not Detect) Ethyl Alcohol 242 mg/dL 01/25/21 Range/Units 13:54 WBC (4.8-10.8) X10*3/uL RBC (4.60-5.80) X10*6/uL Hgb (14.0-18.0) g/dl Hct (42-52) % MCV (80-98) fL MCH (27.0-33.0) pg MCHC (31.0-36.0) g/dl RDW (11.0-16.0) % Plt Count (160-400) X10*3/uL MPV (9.4-12.4) fL Immature Gran % (Auto) (0.0-0.4) % Neut % (Auto) (45-73) % Lymph % (Auto) (20-40) % Rawlins % (Auto) (2-11) % Eos % (Auto) (0-4) % Baso % (Auto) (0-2) % Lymph # (Auto) (1.2-4.9) X10*3/uL Rawlins # (Auto) (0.1-1.2) X10*3/uL Eos # (Auto) (0.0-0.4) X10*3/uL Baso # (Auto) (0.0-0.2) X10*3/uL Abs Immat Gran (auto) (0.00-0.03) X10*3/uL Absolute Neuts (auto) (2.0-8.3) X10*3/uL Absolute Nucleated RBC (0.0-0.012) X10*3/uL Nucleated RBC % (auto) (0.0-0.2) /100WBC Sodium (135-145) mmol/L Potassium (3.3-5.1) mmol/L Chloride (96-108) mmol/L Carbon Dioxide (22-29) mmol/L Anion Gap (12-20) BUN (9-16) mg/dL Creatinine (0.5-1.4) mg/dL Estim Creat Clear Calc Estimated GFR Random Glucose (60-115) mg/dL Calcium (8.4-10.2) mg/dL Magnesium (1.6-2.6) mg/dL Total Bilirubin (0.0-1.0) mg/dL Direct Bilirubin (0.0-0.5) mg/dL AST (5-37) U/L ALT (0-40) U/L Alkaline Phosphatase (39-117) U/L Total Protein (6.5-8.0) g/dL Albumin (3.5-5.0) g/dL Urine Opiates Screen Not Detected (Not Detect) Ur Barbiturates Screen Not Detected (Not Detect) Ur Phencyclidine Scrn Not Detected (Not Detect) Ur Amphetamines Screen Not Detected (Not Detect) U Benzodiazepines Scrn Not Detected (Not Detect) Urine Cocaine Screen Not Detected (Not Detect) U Marijuana (THC) Screen Not Detected (Not Detect) Ethyl Alcohol mg/dL Imaging Data CT head/neck/facial bones: Attestation: I personally reviewed and interpreted this imaging study as follows: Radiologist's impression: There is mild curvature of the lower cervical and upper thoracic spine to the left. Bone alignment is otherwise normal. No fracture or dislocation is seen. Disc spaces are normal. There is mild degenerative spondylosis at C4-C5. There is mild facet arthritis C3-C4, C4-C5 and C5-C6 on the right. Prevertebral soft tissues are normal. There is shotty cervical lymphadenopathy. Visualized lung apices are clear. There are small calcifications in both parotid glands. CT/CT cervical spine wo con IMPRESSION: Mild degenerative changes. No fracture seen. ? IMPRESSION: No acute intracranial process. ? Moderate anterior mandibular soft tissue swelling likely related to injury. There are several cavities along the upper and lower jaw with no fracture. ? Chronic bilateral maxillary, left anterior ethmoid and left sphenoid sinus inflammatory changes. ? Madison bullosa bilateral middle turbinates. ECG Data Attestation: I personally reviewed and interpreted this ECG as follows: ECG interpretation date: 01/25/21 ECG interpretation time: 13:44 Interpretation: Sinus tachycardia with rate of 118, normal pr, normal qrs, normal qt Discharge Plan Discharge Clinical Impression: Laceration, Alcohol intoxication Patient Disposition: Home, Self-Care Instructions: Laceration (ED), Alcohol Intoxication (ED) Additional Instructions: You were offered detox but you declined Stitches come out in 5-7 days Referrals: [facility] [Primary Care Provider] - 2 days Interventions: ED Discharge Assessment Last Done: 01/25/21 18:21 Discharge Date/Time: 01/25/21 18:21
[2021-01-25 13:10] LABS: Basophils Percent Auto 0.2 % (0-2); Eosinophils Absolute Auto 0.2 X10*3/uL (0.0-0.4); Eosinophils Percent Auto 3.6 % (0-4); Hematocrit 33.8 % (42-52); Imm Gran Abs Auto 0.04 X10*3/uL (0.00-0.03); Imm Gran Pct Auto 0.7 % (0.0-0.4); Lymphocytes Absolute Auto 0.6 X10*3/uL (1.2-4.9); Lymphocytes Percent Auto 10.8 % (20-40); Mean Corpuscular HGB Conc 32.5 g/dl (31.0-36.0); Mean Corpuscular Hemoglobin 28.4 pg (27.0-33.0); Mean Corpuscular Volume 87.1 fL (80-98); Mean Platelet Volume 9.4 fL (9.4-12.4); Monocytes Absolute Auto 0.5 X10*3/uL (0.1-1.2); Monocytes Percent Auto 8.2 % (2-11); Neutrophils Absolute Auto 4.4 X10*3/uL (2.0-8.3); Neutrophils Percent Auto 76.5 % (45-73); Platelet Count 242 X10*3/uL (160-400); Red Blood Count 3.88 X10*6/uL (4.60-5.80); White Blood Count 5.8 X10*3/uL (4.8-10.8)
[2021-01-25] MEDS: Lidocaine HCl 2 % MPF 5 ML VIAL SUBCUT (13:35)
[2021-01-25 13:37] LABS: Ethanol 242 mg/dL
[2021-01-25 13:43] LABS: Alanine Aminotransferase 17 U/L (0-40); Albumin Level 3.2 g/dL (3.5-5.0); Alkaline Phosphatase 58 U/L (39-117); Anion Gap 16 (12-20); Aspartate Amino Transferase 35 U/L (5-37); Bilirubin Direct < 0.2 mg/dL (0.0-0.5); Bilirubin Total 0.3 mg/dL (0.0-1.0); Blood Urea Nitrogen 11 mg/dL (9-16); Calcium 7.8 mg/dL (8.4-10.2); Carbon Dioxide 18 mmol/L (22-29); Chloride 103 mmol/L (96-108); Estimated Glomerular Filt Rate > 60; Glucose Random 98 mg/dL (60-115); Magnesium 1.7 mg/dL (1.6-2.6); Potassium 3.9 mmol/L (3.3-5.1); Sodium 133 mmol/L (135-145); Total Protein 7.4 g/dL (6.5-8.0)
[2021-01-25 14:38] LABS: Amphetamine Screen Urine Not Detected (Not Detect); Barbiturates, Urine Not Detected (Not Detect); Benzodiazepines Screen Urine Not Detected (Not Detect); Cannabinoid Screen Urine Not Detected (Not Detect); Cocaine Screen Urine Not Detected (Not Detect); Opiate Screen Urine Not Detected (Not Detect); Phencyclidine Screen Urine Not Detected (Not Detect)
[2021-01-25] MEDS: Ibuprofen 600 MG TABLET PO (15:12)
[2021-01-25 15:13] VITALS: PULSE 120
--- NOTE | 2021-01-25 15:40 | MHC.RECOVSUP ---
Recovery Support note: Patient is a 50 year old Ecuadorean speaking male who presents to [facility] ED after a fall while intoxicated. This fiction and nonfiction prose writer met with patient to discuss his alcohol use and recovery. Patient reports drinking 5-6 beers daily in addition to a couple shots of vodka. Patient reports he went to [facility] several years ago and that he went to [facility] afterwards. Patient reported to this fiction and nonfiction prose writer that he is interested in getting into treatment however reports he does not want to go today. Patient reports he does not have insurance at this time. Discussed [facility] facilities that provide treatment to uninsured individuals and provided patient with information on these programs. Discussed [facility] with patient and explained that Recovery Coaches at [facility] would assist him in securing placement and getting to the facility. Educated patient regarding medications for alcohol use disorder and provided patient with information on the [facility]. Discussed case with patient's ED Provider. This fiction and nonfiction prose writer available to assist patient in securing a detox bed if he is interested prior to discharge.
[2021-01-25 17:09] VITALS: BP 140/97; PULSE 112; RESP 16; O2SAT 99
== END 2021-01-25 18:21 | disposition home or self-care (01) ==
PROVIDERS: Nurse Practitioner Family; Emergency Provider Emergency Medicine
DX: F10.120 Alcohol abuse with intoxication, uncomplicated (principal); Y90.8 Blood alcohol level of 240 mg/100 ml or more; S01.81XA Laceration without foreign body of other part of head, initial encounter; W01.198A Fall on same level from slipping, tripping and stumbling with subsequent striking against other object, initial encounter; Y93.9 Activity, unspecified; Y92.9 Unspecified place or not applicable; Y99.9 Unspecified external cause status
CPT/HCPCS: 12011; 36415; 70450; 70486; 72125; 80048; 80076; 80307; 82077; 83735; 85025; 93005; 96360; 99284

== ENCOUNTER 2021-01-28 21:17 | Emergency (ER) | payer MEDICAID, SELFPAY ==
--- NOTE | ~2021-01-28 | CT_ITS ---
EXAMINATION: CT HEAD WITHOUT CONTRAST CLINICAL INFORMATION: Fall COMPARISON: 01/25/2021 TECHNIQUE: Contiguous axial imaging was performed from the skull base to vertex without intravenous administration of contrast. This CT examination was performed using dose optimization techniques as appropriate, variously including the following: *Automated exposure control *Adjustment of mA and/or kV according to patient size (this includes techniques or standardized protocols for targeted exams where dose is matched to indication/reason for exam; i.e. extremities or head) *Use of iterative reconstruction technique DLP: 944 mGy-cm FINDINGS: There is no evidence of acute intracranial hemorrhage or territorial infarction. No abnormal mass effect or midline shift is seen. Lemus to white matter differentiation is well preserved. No extra-axial fluid collections are identified. The ventricles are normal in size. Mild patchy subcortical white matter low-attenuation changes are stable and statistically related to chronic white matter small vessel ischemic disease. The osseous structures and soft tissues are normal. Mild mucosal thickening present within the bilateral maxillary sinuses. Remainder of the paranasal sinuses are clear. Mastoid air cells are pneumatized. CT/CT head/brain wo con IMPRESSION: No acute intracranial pathology. Mild chronic white matter small vessel ischemic changes.
[2021-01-28 21:28] VITALS: BP 104/60; PULSE 124; RESP 16; TEMP 36.9; O2SAT 95; BMI 26.8
--- NOTE | 2021-01-28 22:04 | ED.FALL ---
HPI - Fall General Chief Complaint: Fall Stated Complaint: etoh fall Time Seen by Provider: 01/28/21 22:03 Source: patient and EMS Mode of arrival: EMS Limitations: no limitations History of Present Illness HPI Narrative: 50-year-old male came in for evaluation of alcohol intoxication and fall. This is a 50-year-old homeless gentleman came in for evaluation of alcohol intoxication patient admitted to drinking 2 beers last night, patient stated that he tripped and fell hitting his face, not sure if there was LOC, small skin abrasion on his chin with no bleeding. Patient otherwise declined any pain anywhere else, patient is awake to give history. Related Data Allergies Allergy/AdvReac Type Severity Reaction Status Date / Time clams Allergy Severe HIVES, Verified 09/15/20 14:07 DIFFICULTY BREATHING Review of Systems Review of Systems: All other systems are reviewed and are negative Constitutional: Reports as per HPI and Reports no additional constitutional complaints Eyes: Reports as per HPI and Reports no additional eye complaints Reports system reviewed and no additional complaints, except as documented Cardiovascular: Reports as per HPI and Reports no additional cardiovascular complaints Respiratory: Reports as per HPI and Reports no additional respiratory complaints Gastrointestinal: Reports as per HPI and Reports no additional gastrointestinal complaints Genitourinary: Reports no additional female genitourinary complaints Musculoskeletal: Reports no additional musculoskeletal complaints Skin/Breast: Reports system reviewed and no additional complaints, except as docu Psychiatric: Reports no additional psychiatric complaints Endocrine: Reports no additional endocrine complaints Hematologic/Lymphatic: Reports no additional hematologic/lymphatic complaints Allergic/Immunologic: Reports no additional allergic/immunologic complaints Reports system reviewed and no additional complaints, except as documented and Reports Abnormal speech present [facility] Past Medical History Medical History ETOH abuse High cholesterol HTN (hypertension) Social History Social History Alcohol intake: current Alcohol intake frequency: 3 or more drinks per day Alcohol type: beer, wine, hard liquor and other Advance Directives: No Advance Directives Information Provided: No Physical Exam Vital Signs: Vital Signs: Last Vital Signs Temp 98.3 F 01/29/21 03:15 Pulse 116 H 01/29/21 03:15 Resp 16 01/29/21 06:28 BP 112/65 01/29/21 03:15 Pulse Ox 97 01/29/21 03:15 Body Mass Index 26.8 Vital signs have been reviewed as appeared to be correct. Blood pressure normal. Heart rate elevated. Respiration rate normal. Temperature normal. Oxygen saturation normal. Appearance: Alert. Oriented X3. No acute distress. Head: Normal external exam. Normocephalic. Less than 1 cm circular skin tear to the chin No Willams signs noted. No raccoon eyes noted Eyes: PERRLA. EOMI. Conjunctiva and sclera normal. Eyelids normal. ENT: TM's Normal. Pharynx normal. Uvula midline. Moist mucous membranes. No trismus noted. No drooling noted. No muffled voice noted. Neck: Normal inspection. Neck supple. FROM. No adenopathy. Thyroid Normal. No meningeal signs. No neck mass noted. CVS: Normal heart rate and rhythm. Heart sound normal. No murmurs noted. Pulses normal throughout. Respiratory: No respiratory distress. Painless inspiration. Breath sounds normal. No wheezes/rales/rhonchi noted. Chest nontender. No accessory muscle usage noted or decreased air movement noted. Abdomen: Soft and nontender. Bowel sounds normal in all 4 quadrants. No distention noted. No organomegaly noted. No visible injury noted. Back: No CVA tenderness. Full range of motion noted. Skin: Skin warm and dry. Normal skin color. Normal skin turgor. No rashes/lesions/lacerations noted. Extremities: No lower extremity edema. Extremities exhibit normal range of motion. Extremities nontender. Neuro: Oriented X 3. No motor deficit. No sensory deficit. Reflexes normal. Course Course Course Narrative: 50-year-old male alcohol intoxication and with a head injury, patient observed in the emergency department overnight remained stable, normal neuro exam, CT of the head is normal, GCS of 15, patient is sober able to ambulate with steady gait, will discharge. MDM - Fall Imaging Data CT scan - head: Radiologist's impression: No acute intracranial pathology. Discharge Plan Discharge Clinical Impression: ETOH abuse Head injury Qualifiers: Encounter type: initial encounter Qualified Code(s): S09.90XA - Unspecified injury of head, initial encounter Patient Disposition: Home, Self-Care Instructions: Head Injury (ED) Referrals: Physician,Unknown [Primary Care Provider] - 2 days
[2021-01-29 03:15] VITALS: BP 112/65; PULSE 116; RESP 18; TEMP 36.8; O2SAT 97
[2021-01-29 06:28] VITALS: RESP 16
== END 2021-01-29 07:08 | disposition home or self-care (01) ==
PROVIDERS: Emergency Provider Emergency Medicine
DX: S09.90XA Unspecified injury of head, initial encounter (principal); G44.309 Post-traumatic headache, unspecified, not intractable; S00.81XA Abrasion of other part of head, initial encounter; F10.10 Alcohol abuse, uncomplicated; Y90.9 Presence of alcohol in blood, level not specified; W19.XXXA Unspecified fall, initial encounter; Y93.9 Activity, unspecified; Y92.9 Unspecified place or not applicable; Y99.9 Unspecified external cause status; Z59.0 Homelessness
CPT/HCPCS: 70450; 90471; 99284

== ENCOUNTER 2021-02-03 09:15 | Emergency (ER) | payer MEDICAID, SELFPAY ==
[2021-02-03 09:29] VITALS: BP 144/109; PULSE 124; RESP 18; TEMP 36.6; O2SAT 97; BMI 26.8
[2021-02-03 09:41] VITALS: PULSE 117; RESP 18; TEMP 37; O2SAT 98
--- NOTE | 2021-02-03 11:07 | ED_ITS ---
HPI - General Adult General Chief complaint: General Medical Stated complaint: suture removal Time Seen by Provider: 02/03/21 11:07 History of Present Illness HPI narrative: Patient presents for suture removal 1 week after sutures were applied to a laceration in the chin after a fall, patient does drink regularly and had fallen while intoxicated 1 week ago injuring his chin He has complained of some discomfort and redness around the area as well as some yellowish watery discharge He denies any fever chills no headache no dental pain no pain with eating Related Data Allergies Allergy/AdvReac Type Severity Reaction Status Date / Time clams Allergy Severe HIVES, Verified 09/15/20 14:07 DIFFICULTY BREATHING Review of Systems Review of Systems: Negatives are no fever no chills no headache no difficulty swallowing or breathing no neck pain no shortness of breath Yes all other systems are reviewed and are negative [facility] Past Medical History Source: nursing notes reviewed Medical History ETOH abuse High cholesterol HTN (hypertension) Social History Social History Alcohol intake: current Alcohol intake frequency: 3 or more drinks per day Alcohol type: beer, wine, hard liquor and other Advance Directives: No Advance Directives Information Provided: No Physical Exam Vital Signs: Vital Signs: Last Vital Signs Temp 98.6 F 02/03/21 09:41 Pulse 108 H 02/03/21 11:19 Resp 16 02/03/21 11:19 BP 137/103 H 02/03/21 11:19 Pulse Ox 98 02/03/21 11:19 Body Mass Index 26.8 General appearance is no acute distress The facial exam there is facial hair that is coated with scabbed material with some yellowish watery discharge as well, there is some redness on the chin around the laceration and some swelling, there is no swelling inside the mouth no impairment of breathing and swallowing no swelling in the neck The neck was supple without lymphadenopathy Respiratory no distress Extremities full range of motion x4 Neuro he is A&O x3, no gross motor sensory deficits Course Course Course Narrative: I trimmed the matson around the laceration using clippers and then scrubbed all the scabbed a material off and this revealed a 2.5 cm laceration that is still partially open with some watery yellow discharge, there were sutures in place as well, I did remove all the sutures as the wounds seem to be infected, and there was further discharge of some watery yellow fluid I attempted to express any further deeper fluid and none could be expressed I informed the patient that the wound was infected and he would need antibiotics His initial pulse was 124, on recheck it was 108 and I discussed with attending physician Dr. corey whether this patient was an appropriate discharge with oral antibiotics and when we returned to the room the patient had left the ER and could not be found I walked around outside to see if is hanging around hor smoking a cigarette he could not be found, I attempted to call but he is homeless with no number and could not be reached Discharge Plan Discharge Clinical Impression: Cellulitis, Visit for suture removal Patient Disposition: Elopement
[2021-02-03 11:19] VITALS: BP 137/103; PULSE 108; RESP 16; O2SAT 98
--- NOTE | 2021-02-03 12:11 | PC.NURSE ---
rod delgado updated with last set of vitals, pa entered tx room to review poc, room empty approx. 1130. pa looked for pt outside and in bathrooms, pt not found, pa attempted to call pt no phone as pt is homeless per pa
== END 2021-02-03 11:30 | disposition left against medical advice (07) ==
PROVIDERS: Emergency Provider Emergency Medicine Emergency Medical Services
DX: S01.81XD Laceration without foreign body of other part of head, subsequent encounter (principal); L03.211 Cellulitis of face; X58.XXXD Exposure to other specified factors, subsequent encounter; I10 Essential (primary) hypertension; Z48.02 Encounter for removal of sutures
CPT/HCPCS: 99283; 99284

== ENCOUNTER 2021-02-07 11:39 | Emergency (ER) | payer MEDICAID, SELFPAY ==
[2021-02-07 11:57] VITALS: BP 107/74; BP 95/62; PULSE 103; PULSE 107; RESP 20; TEMP 36.8; O2SAT 97; O2SAT 99; BMI 26.8
[2021-02-07 12:00] VITALS: RESP 18
--- NOTE | 2021-02-07 12:21 | ED.ALCOHOL ---
HPI - Alcohol General Chief Complaint: ETOH/Substance Use Stated Complaint: ETOH Time Seen by Provider: 02/07/21 12:01 Source: patient Mode of arrival: ambulatory Limitations: no limitations History of Present Illness HPI narrative: 51-year-old male came in by ambulance after was found in in the hallway of the apartment building, patient witnessed urinating in in a hallway of the apartment building multiple times, declined any abdominal pain or chest pain. alcohol intoxicated. Patient declined any trauma happened today. Related Data Allergies Allergy/AdvReac Type Severity Reaction Status Date / Time clams Allergy Severe HIVES, Verified 09/15/20 14:07 DIFFICULTY BREATHING Review of Systems Review of Systems: All other systems are reviewed and are negative Constitutional: Reports as per HPI and Reports no additional constitutional complaints Eyes: Reports as per HPI and Reports no additional eye complaints Reports system reviewed and no additional complaints, except as documented Cardiovascular: Reports as per HPI and Reports no additional cardiovascular complaints Respiratory: Reports as per HPI and Reports no additional respiratory complaints Gastrointestinal: Reports as per HPI and Reports no additional gastrointestinal complaints Genitourinary: Reports no additional female genitourinary complaints Musculoskeletal: Reports no additional musculoskeletal complaints Skin/Breast: Reports system reviewed and no additional complaints, except as docu Psychiatric: Reports no additional psychiatric complaints Endocrine: Reports no additional endocrine complaints Hematologic/Lymphatic: Reports no additional hematologic/lymphatic complaints Allergic/Immunologic: Reports no additional allergic/immunologic complaints Reports system reviewed and no additional complaints, except as documented and Reports Abnormal speech present [facility] Past Medical History Medical History ETOH abuse High cholesterol HTN (hypertension) Social History Social History Alcohol intake: current Alcohol intake frequency: 3 or more drinks per day Alcohol type: beer, wine, hard liquor and other Advance Directives: No Advance Directives Information Provided: No Physical Exam Vital Signs: Vital Signs: Last Vital Signs Temp 98.3 F 02/07/21 11:57 Pulse 103 H 02/07/21 11:57 Resp 20 02/07/21 11:57 BP 95/62 02/07/21 11:57 Pulse Ox 99 02/07/21 11:57 Body Mass Index 26.8 Vital signs have been reviewed as appeared to be correct. Blood pressure normal. Heart rate normal. Respiration rate normal. Temperature normal. Oxygen saturation normal. Appearance: Alert. Oriented X3. No acute distress. Head: Normal external exam. Normocephalic. Atraumatic. No Willams signs noted. No raccoon eyes noted Eyes: PERRLA. EOMI. Conjunctiva and sclera normal. Eyelids normal. ENT: TM's Normal. Pharynx normal. Uvula midline. Moist mucous membranes. No trismus noted. No drooling noted. No muffled voice noted. Neck: Normal inspection. Neck supple. FROM. No adenopathy. Thyroid Normal. No meningeal signs. No neck mass noted. CVS: Normal heart rate and rhythm. Heart sound normal. No murmurs noted. Pulses normal throughout. Respiratory: No respiratory distress. Painless inspiration. Breath sounds normal. No wheezes/rales/rhonchi noted. Chest nontender. No accessory muscle usage noted or decreased air movement noted. Abdomen: Soft and nontender. Bowel sounds normal in all 4 quadrants. No distention noted. No organomegaly noted. No visible injury noted. Back: No CVA tenderness. Full range of motion noted. Skin: Skin warm and dry. Normal skin color. Normal skin turgor. No rashes/lesions/lacerations noted. Extremities: No lower extremity edema. Extremities exhibit normal range of motion. Extremities nontender. Neuro: Oriented X 3. Cranial nerve exam: II-XII are grossly intact No motor deficit. No sensory deficit. Reflexes normal. Course Course Course Narrative: Assessment and plan: [age] well known to our ED staff for alcohol intoxication, patient came in with his typical presentation after alcohol intoxication. Patient will be discharged when he is more sober and walking with steady gait. [facility] - Alcohol Medical Records Attestation: I reviewed the patient's medical records. Discharge Plan Discharge Clinical Impression: ETOH abuse Patient Disposition: Home, Self-Care Instructions: Alcohol Intoxication (ED) Referrals: Physician,None [Primary Care Provider] - 2 days
--- NOTE | 2021-02-07 15:20 | PC.NURSE ---
pt continues to sleep, will obtain vitals shortly, continue to monitor.
[2021-02-07 15:38] VITALS: BP 132/77; PULSE 74; RESP 16; TEMP 36.6; O2SAT 95
--- NOTE | 2021-02-07 15:55 | PC.NURSE ---
pt was given a sandwich, cheese and drink prior to attempting to ambulate him for discharge.
--- NOTE | 2021-02-07 16:02 | MHC.RECOVSUP ---
Recovery Support note: Patient is a 51 year old Salvadorean speaking male who is known to this health technical writer from a previous consultation. Patient presented to [facility] via EMS after being found intoxicated. This health technical writer attempted to meet with patient to discuss his alcohol use and recovery supports. Patient declined invitation to discuss his alcohol use. Patient reports he does not find his alcohol use to be problematic. This health technical writer pointed out that he has been to the hospital three times this month due to issues related to his alcohol use and patient acknowledged but continues to decline services.
--- NOTE | 2021-02-07 16:06 | PC.NURSE ---
pt is awake, oriented, speech is clear. He is ambulatory to bathroom with limping gait, states this is baseline. Pt states he is staying with a friend and will get home.
== END 2021-02-07 16:17 | disposition home or self-care (01) ==
PROVIDERS: Emergency Provider Emergency Medicine
DX: F10.129 Alcohol abuse with intoxication, unspecified (principal); Y90.8 Blood alcohol level of 240 mg/100 ml or more
CPT/HCPCS: 99285

== ENCOUNTER 2021-03-02 17:31 | Emergency (ER) | payer MEDICAID, SELFPAY ==
--- NOTE | ~2021-03-02 | XR_ITS ---
EXAMINATION: XR HIP, LEFT CLINICAL INFORMATION: Fall with pain COMPARISON: 05/18/2014 TECHNIQUE: Frontal view the pelvis with coned frontal and crosstable lateral views of the left hip. FINDINGS: Femoral heads are both well-seated within their respected acetabula. There is chronic flattening of the femoral head/neck junctions with associated deformity to the adjacent acetabula bilaterally. This is more prominent on the right than left. The appearance of the left hip appears similar to the 2014 study. I do not appreciate any acute superimposed fracture or dislocation on these chronic changes. Small ossification in the left gluteal musculature noted as well. Intrapelvic structures unremarkable. Bowel gas pattern unremarkable. XR/XR hip LT w [id number] IMPRESSION: Chronic appearing dysplastic changes to the bilateral hips consistent with chronic dysplastic change but no acute superimposed fracture or dislocation.
--- NOTE | 2021-03-02 17:39 | ED.ALCOHOL ---
HPI - Alcohol General Chief Complaint: Fall Stated Complaint: etoh/fall Time Seen by Provider: 03/02/21 23:15 Source: patient and EMS Mode of arrival: EMS History of Present Illness HPI narrative: 51-year-old male presents via EMS for ETOH intoxication with left hip pain. States that he was drinking Budweiser throughout the day, slipped in his front yd and landed on his left hip. He is reporting left hip pain. Did not hit his head or lose consciousness. MD complaint: alcohol intoxication and alcohol dependence Last drink: Hours (ago) (Within the hour of arrival) Chronic alcohol use: Yes Previous visits for alcohol intoxication: Yes Recent trauma: Yes Associated symptoms: denies other symptoms Treatments prior to arrival: none Related Data Allergies Allergy/AdvReac Type Severity Reaction Status Date / Time clams Allergy Severe HIVES, Verified 09/15/20 14:07 DIFFICULTY BREATHING Review of Systems Review of Systems: Constitutional: No Fever, No Chills ENT/Mouth: No Ear Pain, No Hoarseness, No sore throat Eyes: No Eye Pain, No Swelling, No Redness, No Foreign Body Cardiovascular: No Chest Pain, No SOB Respiratory: No Cough, No Dyspnea Gastrointestinal: No Nausea, No Vomiting, No Diarrhea, No abdominal Pain Genitourinary: No Dysuria, No Hematuria Musculoskeletal: positive left hip pain, No Myalgias, No Joint Swelling Skin: No Skin lacerations, No rash Neuro: No Weakness, No Numbness, No Paresthesias, No Loss of Consciousness, No Dizziness, No Headache Psych: Positive ETOH intoxication, No Anxiety/Panic, No Depression Heme/Lymph: no easy bruising, no Lymphadenopathy Endocrine: No Polyuria, No Polydipsia Yes all other systems are reviewed and are negative [facility] Past Medical History Attestation statement: The following information was validated with the patient. Source: old records reviewed Medical History ETOH abuse High cholesterol HTN (hypertension) Social History Social History Alcohol intake: current Alcohol intake frequency: 3 or more drinks per day Alcohol type: beer Patient Tobacco Use Status: Current someday Tobacco user Use of substances other than those prescribed or required for medical reasons: No Advance Directives: No Advance Directives Information Provided: No Physical Exam Vital Signs: Vital Signs: Last Vital Signs Temp 96.5 F L 03/02/21 18:17 Pulse 106 H 03/02/21 18:17 Resp 16 03/02/21 21:05 BP 109/74 03/02/21 18:17 Pulse Ox 99 03/02/21 18:17 Body Mass Index 26.8 Appearance: Alert. Oriented X3. No acute distress. Visibly intoxicated. Eyes: Pupils equal, round and reactive to light. EOMI. No nystagmus. Sclerae nonicteric. ENT: Pharynx normal. Neck: Normal inspection. Neck supple. CVS: Normal heart rate and rhythm. Pulses normal. Respiratory: No respiratory distress. Breath sounds normal. Abdomen: Soft and nontender. Skin: Skin warm and dry. Normal skin color. Normal skin turgor. Extremities: No lower extremity edema. Gait wobbly but no pain on ambulation, pelvis is stable, strength 5/5 to all extremities. Neuro: No motor deficit. No sensory deficit. Cranial nerves 2-12 intact. Course Course Course Narrative: 51-year-old male presents to the ED for evaluation after a fall. No head trauma, no vertebral spine tenderness or step-offs noted. Strength 5/5 to all extremities, no indication of cauda equina. Patient has had multiple CT scans of the head in the past for EtOH abuse. At this time I do not feel CT scan is necessary, PECARN 0. Last head CT January 28, 2021. Patient does not want detox at this time. Will order hip x-ray. Hip x-ray negative for acute findings. Patient will be physician observation and metabolize to freedom. MDM - Alcohol MDM Narrative Medical decision making narrative: Hip fracture, dislocation, contusion Differential Diagnosis Differential diagnosis: Likely alcohol dependence Medical Records Attestation: I reviewed the patient's medical records. Imaging Data Left hip x-ray: Attestation: I personally reviewed and interpreted this imaging study as follows: Radiologist's impression: EXAMINATION: XR TIBIA AND FIBULA, RIGHT CLINICAL INFORMATION: Possible rock in laceration? COMPARISON: None? TECHNIQUE: AP and lateral views of the right tibia and fibula were obtained. FINDINGS: Bones are normal anatomic alignment. I do not appreciate any acute fracture or dislocation. I do not appreciate any radiopaque foreign body on these obliquities. Mild soft tissue swelling along the anterior distal aspect of the tibia.? XR/XR tibia fibula RT 2V IMPRESSION: Mild soft tissue swelling. No radiopaque foreign body seen. No acute fracture. ? Discharge Plan Discharge Clinical Impression: ETOH abuse Patient Disposition: Home, Self-Care Instructions: Abuse of Alcohol (ED) Additional Instructions: Please consider detox. Thank you for choosing this emergency department for evaluation. Please follow-up with primary care physician as needed. Return to the emergency department for any new, concerning, or worsening symptoms.
[2021-03-02 18:17] VITALS: BP 109/74; PULSE 106; RESP 16; TEMP 35.8; O2SAT 99; BMI 26.8
[2021-03-02 21:05] VITALS: RESP 16
[2021-03-03] VITALS: RESP 16
[2021-03-03 02:35] VITALS: BP 129/83; PULSE 105; RESP 16; TEMP 36.9; O2SAT 99
--- NOTE | 2021-03-03 02:37 | PC.NURSE ---
PT is sleeping in recliner next to the nurse's station. PT easily arousable, calm and cooperative. Respirations even and unlabored, PT is in NAD.
[2021-03-03 05:58] VITALS: BP 117/74; PULSE 109; RESP 16; TEMP 36.8; O2SAT 97
--- NOTE | 2021-03-03 05:59 | PC.NURSE ---
PT has sobered up and is ready to leave. Calm and cooperative. Vitals stable. PT has no complaints at this time.
== END 2021-03-03 06:05 | disposition home or self-care (01) ==
PROVIDERS: Emergency Provider Internal Medicine
DX: F10.10 Alcohol abuse, uncomplicated (principal); Y90.9 Presence of alcohol in blood, level not specified; I10 Essential (primary) hypertension; E78.00 Pure hypercholesterolemia, unspecified; F17.210 Nicotine dependence, cigarettes, uncomplicated
CPT/HCPCS: 73502; 99284

== ENCOUNTER 2021-06-09 19:50 | Emergency (ER) | payer MEDICAID, SELFPAY ==
--- NOTE | ~2021-06-09 | CT_ITS ---
EXAMINATION indication: EtOH, fall EXAMINATION: Multiple studies, right knee, left hip and pelvis 4 views of the right knee demonstrate prepatellar soft tissue increase. No underlying fracture or dislocation of the knee. Single view of the pelvis demonstrates hip deformities. No convincing evidence for an acute fracture. 2 detail views of left hip do not show evidence for an acute fracture or dislocation. Hip deformity is noted. Likely dystrophic calcification in the soft tissue. CT/CT cervical spine wo con IMPRESSION: No acute fracture or dislocation of the right knee. No acute fracture of the pelvis and no fracture or dislocation of the left hip. Hip deformities are noted.
--- NOTE | ~2021-06-09 | XR_ITS ---
EXAMINATION indication: EtOH, fall EXAMINATION: Multiple studies, right knee, left hip and pelvis 4 views of the right knee demonstrate prepatellar soft tissue increase. No underlying fracture or dislocation of the knee. Single view of the pelvis demonstrates hip deformities. No convincing evidence for an acute fracture. 2 detail views of left hip do not show evidence for an acute fracture or dislocation. Hip deformity is noted. Likely dystrophic calcification in the soft tissue. XR/XR knee RT 3V IMPRESSION: No acute fracture or dislocation of the right knee. No acute fracture of the pelvis and no fracture or dislocation of the left hip. Hip deformities are noted.
--- NOTE | ~2021-06-09 | CT_ITS ---
EXAMINATION indication: EtOH, fall EXAMINATION: Multiple studies, right knee, left hip and pelvis 4 views of the right knee demonstrate prepatellar soft tissue increase. No underlying fracture or dislocation of the knee. Single view of the pelvis demonstrates hip deformities. No convincing evidence for an acute fracture. 2 detail views of left hip do not show evidence for an acute fracture or dislocation. Hip deformity is noted. Likely dystrophic calcification in the soft tissue. CT/CT head/brain wo con IMPRESSION: No acute fracture or dislocation of the right knee. No acute fracture of the pelvis and no fracture or dislocation of the left hip. Hip deformities are noted.
[2021-06-09 19:57] VITALS: BP 108/72; PULSE 106; RESP 20; O2SAT 96; BMI 25.8
--- NOTE | 2021-06-09 20:35 | ED_ITS ---
HPI - Alcohol General Chief Complaint: ETOH/Substance Use <BETH Epperson Last Filed: 06/10/21 02:05> Stated Complaint: FALL,ETOH,LAC ON EYE <BETH Epperson Last Filed: 06/10/21 02:05> Time Seen by Provider: 06/09/21 20:09 <BETH Epperson Last Filed: 06/10/21 02:05> Source: patient and EMS <BETH Epperson Last Filed: 06/10/21 02:05> Mode of arrival: EMS <BETH Epperson Last Filed: 06/10/21 02:05> History of Present Illness HPI narrative: 51-year-old male with past medical history of HLD, HTN, ETOH abuse, BIBA for ETOH intoxication with fall, +head strike and laceration to left eyebrow. Patient admits to LOC. States fell due to intoxication, denies symptoms prior to fall. Admits to drinking a few beers and vodka today, denies illicit drug use. Also reports right knee pain and headache. Denies taking anticoagulation. Denies nausea, vomiting, CP/SOB, abdominal pain, neck/back pain Reports tetanus UTD <BETH Epperson Last Filed: 06/10/21 02:05> MD complaint: alcohol intoxication and alcohol dependence <BETH Epperson Last Filed: 06/10/21 02:05> Related Data Allergies/Adverse Reactions: Allergies Allergy/AdvReac Type Severity Reaction Status Date / Time clams Allergy Severe HIVES, Verified 09/15/20 14:07 DIFFICULTY BREATHING <BETH Epperson Last Filed: 06/10/21 02:05> Review of Systems Review of Systems: Constitutional: No Fever, No Chills, No Fatigue, No Malaise ENT/Mouth: No Ear Pain, No Nasal Congestion, No sore throat, No Rhinorrhea, No Swallowing Difficulty Eyes: No Eye Pain, + Swelling, No Redness, No Discharge, No Vision Changes Cardiovascular: No Chest Pain, No SOB, No Edema, No Palpitations Respiratory: No Cough, No Dyspnea Gastrointestinal: No Nausea, No Vomiting, No Diarrhea, No Constipation, No Abdominal pain Genitourinary: No Dysuria, No Urinary Frequency Musculoskeletal: + joint pain, No Myalgias, +Joint Swelling Skin: + laceration, No rash Neuro: No Weakness, + Loss of Consciousness, No Dizziness, + Headache Psych: No Anxiety/Panic, No Depression <BETH Epperson - Last Filed: 06/10/21 02:05> Yes all other systems are reviewed and are negative <BETH Epperson - Last Filed: 06/10/21 02:05> [facility] Past Medical History Attestation statement: The following information was validated with the patient. <BETH Epperson - Last Filed: 06/10/21 02:05> Medical History: Medical History ETOH abuse High cholesterol HTN (hypertension) <BETH Epperson - Last Filed: 06/10/21 02:05> Social History Social History: Social History Alcohol intake: current Alcohol intake frequency: 3 or more drinks per day Alcohol type: beer Patient Tobacco Use Status: Current someday Tobacco user Use of substances other than those prescribed or required for medical reasons: No Advance Directives: No Advance Directives Information Provided: Yes <BETH Epperson - Last Filed: 06/10/21 02:05> Physical Exam Vital Signs: Vital Signs: Last Vital Signs Temp 98.9 F 06/09/21 23:57 Pulse 72 06/09/21 23:57 Resp 16 06/09/21 23:57 BP 117/60 06/09/21 23:57 Pulse Ox 97 06/09/21 23:57 BMI result Body Mass Index 25.8 <BETH Epperson - Last Filed: 06/10/21 02:05> Vital Signs: Last Vital Signs Temp 98.9 F 06/09/21 23:57 Pulse 72 06/09/21 23:57 Resp 16 06/09/21 23:57 BP 117/60 06/09/21 23:57 Pulse Ox 97 06/09/21 23:57 BMI result Body Mass Index 25.8 <Robert Diaz MD - Last Filed: 06/10/21 05:55> Const: Other: + ETOH odor on breath <BETH Epperson - Last Filed: 06/10/21 02:05> General: cooperative and intoxicated appearing <Amina Morrow [facility] Last Filed: 06/10/21 02:05> Orientation/consciousness: patient oriented x3 <Amina Morrow ID - Last Filed: 06/10/21 02:05> HENMT: Other: + hematoma to left eye with 2cm left eyebrow laceration. +left cheek abrasion. No palpable orbital fracture/skull depression <Amina Morrow ID - Last Filed: 06/10/21 02:05> Ears: hearing grossly normal bilaterally <Amina Morrow ID - Last Filed: 06/10/21 02:05> General nose exam: Normal external nose present <Amina Morrow [facility] Last Filed: 06/10/21 02:05> Face and sinus: Yes normal facial exam <Amina Morrow [facility] Last Filed: 06/10/21 02:05> Eyes: General: appearance normal, both eyes and all related structures <Amina Morrow ID - Last Filed: 06/10/21 02:05> Pupils: Equal, round and reactive pupils present <Amina Morrow [facility] Last Filed: 06/10/21 02:05> EOM: EOMs intact bilaterally <Amina Morrow [facility] Last Filed: 06/10/21 02:05> Neck: Other: No midline cervical spinous tenderness <Amina Morrow [facility] Last Filed: 06/10/21 02:05> Neck: Yes normal visual inspection <Amina Morrow [facility] Last Filed: 06/10/21 02:05> Chest: Chest palpation & inspection: no crepitus and no tenderness <Amina Morrow [facility] Last Filed: 06/10/21 02:05> Resp: Effort & Inspection: normal respiratory effort and no respiratory distress <Amina Morrow [facility] Last Filed: 06/10/21 02:05> Auscultation: clear to auscultation bilaterally <Amina Morrow [facility] Last Filed: 06/10/21 02:05> Cardio: Rate: regular rate <Amina Morrow [facility] Last Filed: 06/10/21 02:05> Heart sounds: S1 normal heart sound present and S2 normal heart sound present <Amina Morrow PA - Last Filed: 06/10/21 02:05> GI: Inspection: Yes normal to inspection <Amina Morrow ID - Last Filed: 06/10/21 02:05> Palpation (GI): Soft to palpation, nontender, no guarding and not rigid <Aminasigifredo Morrow PA - Last Filed: 06/10/21 02:05> : General: Yes no CVA tenderness <Amina Morrow ID - Last Filed: 06/10/21 02:05> Back/Spine/Pelvis: Other: No midline thoracic/lumbar spinous tenderness/step- off or deformity <Amina Morrow ID - Last Filed: 06/10/21 02:05> Back: no CVA tenderness <Amina Morrow PA - Last Filed: 06/10/21 02:05> Skin: Rashes: no rashes <Amina Morrow ID - Last Filed: 06/10/21 02:05> Neuro: Other: MARMOLEJO <Amina Morrow ID - Last Filed: 06/10/21 02:05> General: patient oriented x3, tone normal and no focal motor deficits <Amina Morrow ID - Last Filed: 06/10/21 02:05> Cranial nerves: Yes Equal, round and reactive pupils present <Amina Morrow ID - Last Filed: 06/10/21 02:05> Extrem: Other: Right knee with mild swelling and tenderness to palpation. Decreased flexion secondary to pain. Extension intact. <Amina Morrow ID - Last Filed: 06/10/21 02:05> Course Course Course Narrative: CT head/brain wo con / CT cervical spine Conclusion; no fracture or dislocation in the cervical spine. Degenerative changes are noted. No acute finding noncontrast CT the brain. XR knee RT 3V IMPRESSION: No acute fracture or dislocation of the right knee. -Care team spoke to patient and he is interested in detox -0200-- ED care transferred to Dr. Diaz pending detox in the morning <BETH Epperson - Last Filed: 06/10/21 02:05> Reevaluation(s) Reevaluation #1: patient given the list of detox programs, will dc home <Robert Diaz MD - Last Filed: 06/10/21 05:55> Time: 05:55 <Robert Diaz MD - Last Filed: 06/10/21 05:55> MDM - Alcohol MDM Narrative Medical decision making narrative: 51-year-old male with past medical history of HLD, HTN, ETOH abuse, BIBA for ETOH intoxication with fall, +head strike and laceration to left eyebrow. On exam mildly tachycardic, +ETOH odor on breath, A&O x3, physical exam as above. No focal deficits, no midline spinous tenderness, MARMOLEJO. Concern for ICH vs fracture Plan: Head/C-spine CT, knee x-ray, repair laceration <BETH Epperson - Last Filed: 06/10/21 02:05> Differential Diagnosis Differential diagnosis: Likely alcohol dependence and alcohol intoxication <BETH Epperson - Last Filed: 06/10/21 02:05> Medical Records Attestation: I reviewed the patient's medical records. <BETH Epperson - Last Filed: 06/10/21 02:05> Lab Data Attestation: I reviewed the patient's lab results. <BETH Epperson - Last Filed: 06/10/21 02:05> Labs: Lab Results 06/10/21 Range/Units 00:46 COVID-19 (TYE) Negative (Negative) COVID-19 Clin Com See Note <BETH Epperson - Last Filed: 06/10/21 02:05> Lab Results 06/10/21 Range/Units 00:46 COVID-19 (TYE) Negative (Negative) COVID-19 Clin Com See Note <Robert Diaz MD - Last Filed: 06/10/21 05:55> Procedures Laceration Laceration 1: Site: face <BETH Epperson - Last Filed: 06/10/21 02:05> Side (If applicable): left <BETH Epperson - Last Filed: 06/10/21 02:05> Size (cm): 2 <BETH Epperson - Last Filed: 06/10/21 02:05> Description: linear and irregular <BETH Epperson Last Filed: 06/10/21 02:05> Depth: simple, single layer <BETH Epperson - Last Filed: 06/10/21 02:05> Local Anesthetic: lidocaine 1% <BETH Epperson Last Filed: 06/10/21 02:05> Amount of anesthesia used (mL): 3 <BETH Epperson Last Filed: 06/10/21 02:05> Pre-repair: wound explored <BETH Epperson - Last Filed: 06/10/21 02:05> Skin layer closed with: nylon <BETH Epperson - Last Filed: 06/10/21 02:05> Size (cm): 5-0 <BETH Epperson - Last Filed: 06/10/21 02:05> Number of sutures: 4 <BETH Epperson Last Filed: 06/10/21 02:05> Technique: simple, interrupted <BETH Epperson Last Filed: 06/10/21 02:05> Discharge Plan Discharge Clinical Impression: Fall Facial laceration Qualifiers: Encounter type: initial encounter Qualified Code(s): S01.81XA - Laceration without foreign body of other part of head, initial encounter Alcohol intoxication Qualifiers: Complication of substance-induced condition: with unspecified complication Qualified Code(s): F10.929 - Alcohol use, unspecified with intoxication, unspecified <BETH Epperson Last Filed: 06/10/21 02:05> Patient Disposition: Home, Self-Care <BETH Epperson Last Filed: 06/10/21 02:05> Instructions: Laceration (ED), Abuse of Alcohol (ED) <BETH Epperson Last Filed: 06/10/21 02:05> Additional Instructions: You had stitches placed in your face, you need to have these removed in 5 days, return to any emergency department or urgent care for removal Apply bacitracin and Neosporin to your wounds Apply anti scar cream like Mederma once wounds are healed/sutures are removed drinking alcohol puts you at risk of falling/ If your laceration begins look infected please return to the emergency department <BETH Epperson Last Filed: 06/10/21 02:05> Referrals: ED Physician,Generic [Physician] - 5 days (For suture removal) <BETH Epperson Last Filed: 06/10/21 02:05>
[2021-06-09] MEDS: Lidocaine HCl 1 % MPF 5 ML VIAL SUBCUT (21:36)
[2021-06-09] MEDS: Bacitracin Oint 14 GM TUBE 1 APPL TOPICAL (23:10)
--- NOTE | 2021-06-09 23:53 | PC.NURSE ---
pt a&o, no sob or chest pain. Pt sleeping with no sign of distress. pt requesting to rehab.
[2021-06-09 23:57] VITALS: BP 117/60; PULSE 72; RESP 16; TEMP 37.2; O2SAT 97
--- NOTE | 2021-06-10 00:03 | MHC.CARE ---
T/W met with pt briefly as a consult was requested due to pt requesting detox. Pt is known to ED for ETOH. Today pt presents due to a fall while intoxicated resulting in stitches. Pt reports he may be interested in detox tomorrow. Pt will remain the night and see recovery team tomorrow to address ETOH and need for detox.
[2021-06-10 01:03] LABS: COVID-19 Test Negative (Negative); IDNOW Serial# 9DD0AD1C
[2021-06-10 06:04] VITALS: BP 135/95; PULSE 72; RESP 16; TEMP 37.2; O2SAT 98
--- NOTE | 2021-06-10 06:16 | PC.NURSE ---
pt a&o, no sob or chest pain. Detox information given and resources. pt discharge
== END 2021-06-10 06:18 | disposition home or self-care (01) ==
PROVIDERS: Physician Assistant; Emergency Provider Emergency Medicine
DX: F10.129 Alcohol abuse with intoxication, unspecified (principal); Y90.9 Presence of alcohol in blood, level not specified; S01.112A Laceration without foreign body of left eyelid and periocular area, initial encounter; I10 Essential (primary) hypertension; Z20.822 Contact with and (suspected) exposure to COVID-19; W19.XXXA Unspecified fall, initial encounter; Y93.9 Activity, unspecified; Y92.9 Unspecified place or not applicable; Y99.9 Unspecified external cause status
CPT/HCPCS: 12011; 36415; 70450; 72125; 73562; 87635; 99285

== ENCOUNTER 2021-06-29 15:18 | Inpatient (IN) | payer MEDICAID, SELFPAY ==
--- NOTE | ~2021-06-29 | CT_ITS ---
EXAMINATION: CT HEAD WITHOUT CONTRAST CT CERVICAL SPINE WITHOUT CONTRAST CLINICAL INFORMATION: EtOH. Fall. COMPARISON: CT head and cervical spine 06/09/2021 TECHNIQUE: Imaging was performed from the skull base to vertex without intravenous administration of contrast. In addition, helical noncontrast CT imaging was acquired through the cervical spine and source images were reviewed along with axial reconstructions and sagittal and coronal MPRs. [This CT examination was performed using dose optimization techniques as appropriate, variously including the following: *Automated exposure control *Adjustment of mA and/or kV according to patient size (this includes techniques or standardized protocols for targeted exams where dose is matched to indication/reason for exam; i.e. extremities or head) *Use of iterative reconstruction technique] DLP: 1339 mGy-cm FINDINGS: HEAD: No intracranial mass, hemorrhage, or midline shift is visualized. There is generalized global volume loss. There is mild prominence of the ventricles and the sulci . There is mild hypodensity of the periventricular white matter due to chronic small vessel ischemic disease. There are vascular calcifications of the internal carotid arteries bilaterally. No extra-axial collections are identified. Normal variant of prominent cisterna magna. The paranasal sinuses and mastoid air cells are well aerated. CERVICAL SPINE: There is no evidence of acute cervical spine fracture. Vertebral bodies remain normal in height. Cervical vertebrae have normal alignment. Mild multilevel facet joint arthrosis. Cervical disc height is normal. No pre- or paravertebral soft tissue abnormality is identified. Chronic increased interstitial lung markings at lung apices bilaterally. No change since CAT scan chest 11/01/2020. CT/CT cervical spine wo con IMPRESSION: 1. No acute intracranial pathology. 2. No CT evidence of acute cervical spine fracture or traumatic subluxation
--- NOTE | ~2021-06-29 | US_ITS ---
EXAMINATION: US VENOUS ULTRASOUND WITH DOPPLER LOWER EXTREMITY, LEFT CLINICAL INFORMATION: Left lateral swelling, assess for DVT. Abscess. COMPARISON: None TECHNIQUE: Ultrasound of the deep veins is performed from the hip to the calf with compression sonography and color and pulse Doppler assessment. Spectral analysis with color-flow imaging is performed. FINDINGS: There is normal venous compression and respiratory variation and augmented flow. The visualized common femoral vein, superficial femoral vein, profunda femoral vein, popliteal vein, and the trifurcation region shows no evidence of deep venous thrombosis. No left popliteal cyst is seen. Mild subcutaneous edema seen in the left calf and left foot without focal abnormality. Enlarged left left inguinal reniform lymph node measures 2.2 cm. US/US venous duplex LE LT IMPRESSION: 1. No evidence for deep venous thrombosis in the left lower extremity. 2. Mild subcutaneous edema in the left calf and foot without focal fluid collection. 3. Enlarged left inguinal lymph node is nonspecific, but demonstrates overall benign features and may be reactive.
--- NOTE | ~2021-06-29 | XR_ITS ---
EXAMINATION: XR FOOT, LEFT CLINICAL INFORMATION: Left foot swelling and tenderness. COMPARISON: None TECHNIQUE: 3 views of the left foot. FINDINGS: No fracture. No dislocation. No focal bone lesion or abnormal periosteal reaction. There is soft tissue swelling around the forefoot. No air in the soft tissue. No radiopaque foreign body. XR/XR foot LT 2V IMPRESSION: Soft tissue swelling at the forefoot. No acute osseous abnormality.
[2021-06-29 15:31] VITALS: BP 104/74; PULSE 64
--- NOTE | 2021-06-29 15:50 | ED.GENADULT ---
HPI - General Adult General Chief complaint: ETOH/Substance Use Stated complaint: fall, etoh Time Seen by Provider: 06/29/21 15:49 Source: patient Mode of arrival: ambulatory Limitations: no limitations History of Present Illness HPI narrative: 51-year-old male history of alcohol abuse presents to ED for drinking and being found on the ground. EMS was called by bystanders due to patient drinking and being found on the ground. Possible fall. Patient admits to drinking. Negative for any obvious signs of trauma on body. Patient does not want detox. Related Data Previous Rx's Medication Instructions Recorded cephalexin 500 mg tablet 500 mg PO QID 7 Days #28 tab 06/30/21 doxycycline hyclate 100 mg tablet 100 mg PO BID 7 Days #14 tab 06/30/21 Allergies Allergy/AdvReac Type Severity Reaction Status Date / Time clams Allergy Severe HIVES, Verified 09/15/20 14:07 DIFFICULTY BREATHING Review of Systems Review of Systems: Alcohol on breath Yes all other systems are reviewed and are negative PMFSH Past Medical History Medical History ETOH abuse High cholesterol HTN (hypertension) Social History Social History Alcohol intake: current Alcohol intake frequency: 3 or more drinks per day Alcohol type: beer Patient Tobacco Use Status: Current someday Tobacco user Advance Directives: No Advance Directives Information Provided: No Physical Exam Vital Signs: Vital Signs: Last Vital Signs Temp 99.9 F 06/30/21 01:38 Pulse 121 H 06/30/21 01:38 Resp 18 06/30/21 01:38 BP 127/81 06/30/21 01:38 Pulse Ox 99 06/30/21 01:38 BMI result Body Mass Index 24.3 Const: General: cooperative, healthy appearing, comfortable, no acute distress, well developed, alert, awake and Physically active HENMT: Head: Yes normal to inspection, Yes No palpable skull fracture present, Yes normocephalic, Yes atraumatic and No abrasion Head images: 1. old wound scabbed over still present with sutures. Eyes: General: appearance normal, both eyes and all related structures Neck: Neck: Yes normal visual inspection, Yes full ROM, Yes no lymphadenopathy, Yes no meningeal signs, Yes trachea midline, Yes supple, No anterior neck swelling and No tender Chest: Chest palpation & inspection: normal inspection of the chest and normal palpation of entire chest wall Resp: Effort & Inspection: normal respiratory effort and able to speak in complete sentences Auscultation: clear to auscultation bilaterally Cardio: Jugular venous distension: no JVD Heart sounds: S1 normal heart sound present and S2 normal heart sound present GI: Inspection: Yes normal to inspection and No abdominal wall ecchymosis Palpation (GI): Soft to palpation, not firm, nontender, no guarding and not rigid : General: No CVA tenderness and Yes no CVA tenderness Back/Spine/Pelvis: Back: no CVA tenderness, No CVA tenderness and No back tenderness Skin: General skin exam: no rashes or lesions noted and elasticity normal Neuro: Other: Alcohol on breath General: no meningeal signs and CN's II-XI intact bilaterally Cranial nerves: Yes CN's II-XII intact bilaterally Extrem: General: Yes normal to inspection and Yes full ROM Psych: Appearance: grossly normal, well kempt and not disheveled Course Course Course Narrative: whole-body inspected no signs of trauma but will do a head CT scan of cervical spine due to patient drinking and being found on the floor. Patient presently is at baseline mentally will observe in the ED from 1 fully sober. Reevaluation(s) Reevaluation #1: patient was about to be discharged bed upon exam patient had left foot redness warm/tender with blanching. X-ray negative for osteomyelitis. Negative for white blood cell count per lactic 2.1. Ultrasound negative for blood clot. Repeat lactate came back negative after fluids. patient given Librium to prevent alcohol withdrawal. Patient discharged with antibiotics Time: 02:08 Reevaluation #2: patient's ESR 69 and CRP is 2.7. patient not able to ambulate due to left foot pain and redness. Case was discussed with Dr. Corcoran who agrees patient should be admitted. Patient agreeable for admission for cellulitis of left foot. patient discharged cancelled Time: 03:03 Medical Decision Making MDM Narrative Medical decision making narrative: alcohol abuse. Left foot cellulitis Lab Data Result diagrams: 06/29/21 22:31 06/29/21 22:31 Labs: Lab Results 06/29/21 06/29/21 06/29/21 Range/Units 22:31 22:31 22:31 WBC 5.9 (4.8-10.8) X10*3/uL RBC 4.23 L (4.60-5.80) X10*6/uL Hgb 11.6 L (14.0-18.0) g/dl Hct 36.7 L (42.0-52.0) % MCV 86.8 (80.0-98.0) fL MCH 27.4 (27.0-33.0) pg MCHC 31.6 (31.0-36.0) g/dl RDW 14.8 (11.0-16.0) % Plt Count 244 (160-400) X10*3/uL MPV 10.1 (9.4-12.4) fL Immature Gran % (Auto) 0.3 (0.0-0.4) % Neut % (Auto) 82.5 H (45-73) % Lymph % (Auto) 8.6 L (20-40) % [place] % (Auto) 5.6 (2-11) % Eos % (Auto) 2.7 (0-4) % Baso % (Auto) 0.3 (0-2) % Lymph # (Auto) 0.5 L (1.2-4.9) X10*3/uL [place] # (Auto) 0.3 (0.1-1.2) X10*3/uL Eos # (Auto) 0.2 (0.0-0.4) X10*3/uL Baso # (Auto) 0.0 (0.0-0.2) X10*3/uL Abs Immat Gran (auto) 0.02 (0.00-0.03) X10*3/uL Absolute Neuts (auto) 4.9 (2.0-8.3) x10*3/uL Absolute Nucleated RBC 0.000 (0.0-0.012) X10*3/uL Nucleated RBC % (auto) 0.0 (0.0-0.2) /100WBC ESR 69 H (0-15) MM/HR Sodium 138 (135-145) mmol/L Potassium 3.8 (3.3-5.1) mmol/L Chloride 103 (96-108) mmol/L Carbon Dioxide 27 (22-29) mmol/L Anion Gap 12 (12-20) BUN 32 H (9-16) mg/dL Creatinine 0.95 (0.5-1.4) mg/dL Estim Creat Clear Calc 94.9 Estimated GFR > 60 Random Glucose 152 H D (60-115) mg/dL Lactic Acid (0.5-2.0) mmol/L Lactic Acid F/U @ 2Hr (0.5-2.0) mmol/L Calcium 8.2 L (8.4-10.2) mg/dL Total Bilirubin 0.3 (0.0-1.0) mg/dL AST 34 (5-37) U/L ALT 19 (0-40) U/L Alkaline Phosphatase 73 D (39-117) U/L C-Reactive Protein 2.73 H (< or = 0.50) mg/dL Total Protein 7.9 (6.5-8.0) g/dL Albumin 3.3 L (3.5-5.0) g/dL Ethyl Alcohol mg/dL 06/29/21 06/29/21 06/30/21 Range/Units 22:31 22:31 01:34 WBC (4.8-10.8) X10*3/uL RBC (4.60-5.80) X10*6/uL Hgb (14.0-18.0) g/dl Hct (42.0-52.0) % MCV (80.0-98.0) fL MCH (27.0-33.0) pg MCHC (31.0-36.0) g/dl RDW (11.0-16.0) % Plt Count (160-400) X10*3/uL MPV (9.4-12.4) fL Immature Gran % (Auto) (0.0-0.4) % Neut % (Auto) (45-73) % Lymph % (Auto) (20-40) % [place] % (Auto) (2-11) % Eos % (Auto) (0-4) % Baso % (Auto) (0-2) % Lymph # (Auto) (1.2-4.9) X10*3/uL [place] # (Auto) (0.1-1.2) X10*3/uL Eos # (Auto) (0.0-0.4) X10*3/uL Baso # (Auto) (0.0-0.2) X10*3/uL Abs Immat Gran (auto) (0.00-0.03) X10*3/uL Absolute Neuts (auto) (2.0-8.3) x10*3/uL Absolute Nucleated RBC (0.0-0.012) X10*3/uL Nucleated RBC % (auto) (0.0-0.2) /100WBC ESR (0-15) MM/HR Sodium (135-145) mmol/L Potassium (3.3-5.1) mmol/L Chloride (96-108) mmol/L Carbon Dioxide (22-29) mmol/L Anion Gap (12-20) BUN (9-16) mg/dL Creatinine (0.5-1.4) mg/dL Estim Creat Clear Calc Estimated GFR Random Glucose (60-115) mg/dL Lactic Acid 2.1 H* (0.5-2.0) mmol/L Lactic Acid F/U @ 2Hr 1.2 (0.5-2.0) mmol/L Calcium (8.4-10.2) mg/dL Total Bilirubin (0.0-1.0) mg/dL AST (5-37) U/L ALT (0-40) U/L Alkaline Phosphatase (39-117) U/L C-Reactive Protein (< or = 0.50) mg/dL Total Protein (6.5-8.0) g/dL Albumin (3.5-5.0) g/dL Ethyl Alcohol 113 mg/dL Discharge Plan Discharge Clinical Impression: ETOH abuse, Cellulitis of left foot Patient Disposition: Admitted As Inpatient Additional Instructions: few be discharged with antibiotics for left foot cellulitis. Please follow-up with primary care provider. Return to the ED for worsening redness, swelling, chest pain, shortness of breath, tremors, abdominal pain, nausea, vomiting, calf pain, pus discharge, foul odor, or any other concerning symptoms. Print Language: [place]
[2021-06-29 15:57] VITALS: BP 105/65; PULSE 85; RESP 16; TEMP 36.4; O2SAT 98; BMI 24.3
[2021-06-29 18:17] VITALS: BP 123/77; PULSE 89; RESP 18; TEMP 36.6; O2SAT 99
[2021-06-29 20:19] VITALS: BP 118/80; PULSE 104; RESP 18; TEMP 36.8; O2SAT 97
--- NOTE | 2021-06-29 21:10 | PC.NURSE ---
attempted ambulation trial for d/c, pt remains unsteady on his feet. rn noticed warm and red L foot. BETH deras made aware
[2021-06-29 22:36] LABS: MANUAL DIFF FLAG NO
[2021-06-29 22:42] LABS: Basophils Percent Auto 0.3 % (0-2); Eosinophils Absolute Auto 0.2 X10*3/uL (0.0-0.4); Eosinophils Percent Auto 2.7 % (0-4); Hematocrit 36.7 % (42.0-52.0); Hemoglobin 11.6 g/dl (14.0-18.0); Imm Gran Abs Auto 0.02 X10*3/uL (0.00-0.03); Imm Gran Pct Auto 0.3 % (0.0-0.4); Lymphocytes Absolute Auto 0.5 X10*3/uL (1.2-4.9); Lymphocytes Percent Auto 8.6 % (20-40); Mean Corpuscular HGB Conc 31.6 g/dl (31.0-36.0); Mean Corpuscular Hemoglobin 27.4 pg (27.0-33.0); Mean Corpuscular Volume 86.8 fL (80.0-98.0); Mean Platelet Volume 10.1 fL (9.4-12.4); Monocytes Absolute Auto 0.3 X10*3/uL (0.1-1.2); Monocytes Percent Auto 5.6 % (2-11); Neutrophils Absolute Auto 4.9 x10*3/uL (2.0-8.3); Neutrophils Percent Auto 82.5 % (45-73); Platelet Count 244 X10*3/uL (160-400); Red Blood Count 4.23 X10*6/uL (4.60-5.80); Red Cell Distribution Width 14.8 % (11.0-16.0); White Blood Count 5.9 X10*3/uL (4.8-10.8)
[2021-06-29 22:55] LABS: Ethanol 113 mg/dL
[2021-06-29 22:59] LABS: Alanine Aminotransferase 19 U/L (0-40); Albumin Level 3.3 g/dL (3.5-5.0); Alkaline Phosphatase 73 U/L (39-117); Anion Gap 12 (12-20); Aspartate Amino Transferase 34 U/L (5-37); Bilirubin Total 0.3 mg/dL (0.0-1.0); Blood Urea Nitrogen 32 mg/dL (9-16); C Reactive Protein 2.73 mg/dL (< or = 0.50); Calcium 8.2 mg/dL (8.4-10.2); Carbon Dioxide 27 mmol/L (22-29); Chloride 103 mmol/L (96-108); Creatinine Clr Calc Pharmacy 94.9; Estimated Glomerular Filt Rate > 60; Glucose Random 152 mg/dL (60-115); Potassium 3.8 mmol/L (3.3-5.1); Sodium 138 mmol/L (135-145); Total Protein 7.9 g/dL (6.5-8.0)
[2021-06-29 23:03] LABS: Lactic Acid 2.1 mmol/L (0.5-2.0)
[2021-06-29] MEDS: 0.9 % Sodium Chloride 1,000 ML 999 ML IV (23:27)
[2021-06-29 23:31] LABS: Erythrocyte Sedimentation Rate 69 MM/HR (0-15)
[2021-06-30] VITALS: BP 122/84; PULSE 109; RESP 15; TEMP 36.8; O2SAT 97
[2021-06-30 00:34] LABS: Reflex Lactate? Lactic Acid Added
[2021-06-30] MEDS: chlordiazePOXIDE HCl 25 MG CAPSULE 50 MG PO (01:30)
[2021-06-30 01:38] VITALS: BP 127/81; PULSE 121; RESP 18; TEMP 37.7; O2SAT 99
[2021-06-30 01:53] LABS: ~Lactic Acid-LAB USE ONLY 1.2 mmol/L (0.5-2.0)
--- NOTE | 2021-06-30 03:23 | PM.IMHP ---
History of Present Illness Date of Service: 06/30/21 Chief Complaint: alcohol abuse /fall 51-year-old male with a past medical history of hypertension, hyperlipidemia presented to the hospital with a chief complaint of fall. Reportedly patient was found on the ground by the bystanders and subsequently brought into the hospital for further evaluation. Patient mentioned that he has been drinking alcohol on a daily basis; denies any chest pain or palpitations. Denies any head strike or loss of consciousness when he had the fall. Denies any neck pain back pain or hip pain. Denies any chest pain palpitations lightheadedness or dizziness. Denies any fever chills cough. Denies any GI symptoms. Review of all other systems is negative except mentioned above ER course: Per ER team patient on presentation is still noted to be mildly tremulous; labs were essentially benign; afebrile and vitals stable; patient was given Ativan with mild improvement in his tremulousness; initially plan to discharge the patient but followed by noted that patient has erythema on the left foot concerning for cellulitis. When tried to ambulate the patient patient was unsteady and ambulation limited secondary to the pain. Given IV vancomycin for cellulitis of the left foot and admitted for further management. [facility] Medical History ETOH abuse High cholesterol HTN (hypertension) Social History Alcohol intake: current Alcohol intake frequency: 3 or more drinks per day Alcohol type: beer Patient Tobacco Use Status: Current someday Tobacco user Advance Directives: No Advance Directives Information Provided: No Meds Allergies Allergy/AdvReac Type Severity Reaction Status Date / Time clams Allergy Severe HIVES, Verified 09/15/20 14:07 DIFFICULTY BREATHING Active Medications: Current Medications Vancomycin HCl 1,000 mg/ (Sodium Chloride) 270 mls @ 270 mls/hr IV ONCE ONE Stop: 06/30/21 03:47 Physical Exam Vital Signs and Narrative: Vital Signs: Last Vital Signs Temp 99.9 F 06/30/21 01:38 Pulse 121 H 06/30/21 01:38 Resp 18 06/30/21 01:38 BP 127/81 06/30/21 01:38 Pulse Ox 99 06/30/21 01:38 BMI result Body Mass Index 24.3 Gen: Appears be in no acute distress HEENT: NCAT, Moist mucosa. Pulmonary: Vesicular breath sounds, fair air entry CVS: Normal S1-S2 Abdomen: BS+, Soft, Nontender; noted of cellulitis of the left foot as showing the picture below; tender to palpate; Extremities: Warm well perfused Neuro: Alert and awake. Results Labs CBC and Chem 7: 06/29/21 22:31 06/29/21 22:31 Labs: Laboratory Results - last 24 hr 06/29/21 06/29/21 06/29/21 22:31 22:31 22:31 MCV 86.8 MCH 27.4 MCHC 31.6 RDW 14.8 Plt Count 244 MPV 10.1 Immature Gran % (Auto) 0.3 Neut % (Auto) 82.5 H Lymph % (Auto) 8.6 L Stearns % (Auto) 5.6 Eos % (Auto) 2.7 Baso % (Auto) 0.3 Lymph # (Auto) 0.5 L Stearns # (Auto) 0.3 Eos # (Auto) 0.2 Baso # (Auto) 0.0 Abs Immat Gran (auto) 0.02 Absolute Neuts (auto) 4.9 Absolute Nucleated RBC 0.000 Nucleated RBC % (auto) 0.0 ESR 69 H Anion Gap 12 Estim Creat Clear Calc 94.9 Estimated GFR > 60 Random Glucose 152 H D Lactic Acid Lactic Acid F/U @ 2Hr Calcium 8.2 L Total Bilirubin 0.3 AST 34 ALT 19 Alkaline Phosphatase 73 D C-Reactive Protein 2.73 H Total Protein 7.9 Albumin 3.3 L Ethyl Alcohol 06/29/21 06/29/21 06/30/21 22:31 22:31 01:34 MCV MCH MCHC RDW Plt Count MPV Immature Gran % (Auto) Neut % (Auto) Lymph % (Auto) Stearns % (Auto) Eos % (Auto) Baso % (Auto) Lymph # (Auto) Stearns # (Auto) Eos # (Auto) Baso # (Auto) Abs Immat Gran (auto) Absolute Neuts (auto) Absolute Nucleated RBC Nucleated RBC % (auto) ESR Anion Gap Estim Creat Clear Calc Estimated GFR Random Glucose Lactic Acid 2.1 H* Lactic Acid F/U @ 2Hr 1.2 Calcium Total Bilirubin AST ALT Alkaline Phosphatase C-Reactive Protein Total Protein Albumin Ethyl Alcohol 113 Imaging Radiologist's Impressions: Impressions Cervical Spine CT 06/29/21 16:39 IMPRESSION: 1. No acute intracranial pathology. 2. No CT evidence of acute cervical spine fracture or traumatic subluxation Head CT 06/29/21 16:39 IMPRESSION: 1. No acute intracranial pathology. 2. No CT evidence of acute cervical spine fracture or traumatic subluxation Foot X-Ray 06/29/21 21:25 IMPRESSION: Soft tissue swelling at the forefoot. No acute osseous abnormality. Venous Duplex 06/29/21 21:58 IMPRESSION: 1. No evidence for deep venous thrombosis in the left lower extremity. 2. Mild subcutaneous edema in the left calf and foot without focal fluid collection. 3. Enlarged left inguinal lymph node is nonspecific, but demonstrates overall benign features and may be reactive. Assessment and Plan (1) Cellulitis of left foot: Status: Acute (2) ETOH abuse: Status: Acute 51-year-old male with a past medical history of hypertension, hyperlipidemia presented to the hospital with a chief complaint of fall. Reportedly patient was found on the ground by the bystanders and subsequently brought into the hospital for further evaluation. Noted to have tremulousness secondary all call withdrawal and left foot cellulitis with pain limiting ambulation. Concerns for safe disposition in the ER hence admitted for further management. Left foot cellulitis: Continue IV vancomycin. foot x-ray showed no concerning findings for osteomyelitis. Ultrasound showed no evidence of abscess. Fall: Appears to be mechanical in nature. Patient denies any head strike or loss of consciousness. CT head and CT Cervical spine showed no acute findings. Fall precautions. PT/ OT eventually. Alcohol abuse: Monitor on CIWA protocol. Ativan p.r.n.. Thiamine folate and multivitamins. DVT prophylaxis: SCD boots Code status: Full code Quality Stroke Does the patient have a stroke diagnosis?: No VTE Prior VTE?: No VTE Risk Level:: Medical - low VTE Device Contraindication: N/A - Device Ordered VTE Drug Contraindication: Treatment Not Indicated
[2021-06-30 03:26] VITALS: BP 114/66; PULSE 117; RESP 17; TEMP 37.2; O2SAT 95
[2021-06-30] MEDS: Dextrose 5 % and 0.45 % NaCl 1,000 ML 100 ML IVCONT (03:59)
[2021-06-30] MEDS: vancomycin HCL 1,000 MG in 0.9 % Sodium Chloride 250 ML 270 MG IV ×2 (04:00→11:38)
[2021-06-30 04:28] LABS: COVID-19 Test Negative (Negative); IDNOW Serial# 9DD0AD1C
[2021-06-30 06:24] VITALS: BP 128/88; PULSE 74; RESP 16; TEMP 36.7; O2SAT 94
[2021-06-30 07:18] LABS: MANUAL DIFF FLAG NO
[2021-06-30 07:26] LABS: Basophils Percent Auto 0.2 % (0-2); Eosinophils Absolute Auto 0.2 X10*3/uL (0.0-0.4); Eosinophils Percent Auto 2.8 % (0-4); Hemoglobin 10.6 g/dl (14.0-18.0); Imm Gran Abs Auto 0.02 X10*3/uL (0.00-0.03); Imm Gran Pct Auto 0.4 % (0.0-0.4); Lymphocytes Absolute Auto 0.4 X10*3/uL (1.2-4.9); Lymphocytes Percent Auto 6.6 % (20-40); Mean Corpuscular HGB Conc 32.1 g/dl (31.0-36.0); Mean Corpuscular Hemoglobin 27.5 pg (27.0-33.0); Mean Corpuscular Volume 85.5 fL (80.0-98.0); Mean Platelet Volume 10.3 fL (9.4-12.4); Monocytes Absolute Auto 0.4 X10*3/uL (0.1-1.2); Monocytes Percent Auto 7.5 % (2-11); Neutrophils Absolute Auto 4.4 x10*3/uL (2.0-8.3); Neutrophils Percent Auto 82.5 % (45-73); Platelet Count 215 X10*3/uL (160-400); Red Blood Count 3.86 X10*6/uL (4.60-5.80); Red Cell Distribution Width 14.9 % (11.0-16.0); White Blood Count 5.3 X10*3/uL (4.8-10.8)
[2021-06-30] MEDS: Thiamine HCL 100 MG TABLET PO (07:29)
[2021-06-30] MEDS: Famotidine 20 MG TABLET PO ×2 (07:29→20:34)
[2021-06-30] MEDS: Multivitamin TABLET 1 TAB PO (07:29)
[2021-06-30] MEDS: Folic Acid 1 MG TABLET PO (07:29)
[2021-06-30 07:43] LABS: Anion Gap 7 (12-20); Blood Urea Nitrogen 34 mg/dL (9-16); Calcium 7.7 mg/dL (8.4-10.2); Carbon Dioxide 27 mmol/L (22-29); Chloride 108 mmol/L (96-108); Creatinine Clr Calc Pharmacy 101.3; Estimated Glomerular Filt Rate > 60; Glucose Random 99 mg/dL (60-115); Potassium 4.2 mmol/L (3.3-5.1); Sodium 138 mmol/L (135-145)
[2021-06-30 08:06] LABS: Magnesium 2.2 mg/dL (1.6-2.6)
--- NOTE | 2021-06-30 10:43 | MHC.CM.PN ---
CM MET WITH PT IN ED21 PT REPORTS HE IS NOT STAYING WITH HIS AT THIS TIME, HE IS STAYING WITH A FRIEND PT DENIES USE OF DME OR HOME / COMMUNITY SERVICES PT DOES NOT HAVE A PCP OR HCP AND DECLINES ASSISTANCE WITH EITHER DCP TBD PENDING RECOVERY TEAM CONSULT PT REPORTS HE WILL RETURN TO HIS FRIENDS HOME PT WILL NEED TRANSPORT
--- NOTE | 2021-06-30 10:46 | PHA.MEDREC ---
Pharmacy Consult ? Medication Reconciliation Pharmacy has completed the medication reconciliation. Patient reports no medications at home. Lauren Rodriguez, LisetteD
--- NOTE | 2021-06-30 10:51 | PC.NURSE ---
pt refusing pheno protocol, resting in bed, aware of plan of care and denies having any questions.
--- NOTE | 2021-06-30 11:26 | PHA.PROG ---
Admission Date/Time: June 30, 2021 03:20 Indication: Cellulitis Weight in k.111 kg Adjusted body weight in K.6 kg [place] body weight in K kg Obesity Dosing Indication % IBW: N/A Serum Creatinine - Last 168 Hours 06/29/21 06/30/21 22:31 06:50 Creatinine 0.95 0.89 Estimated CrCl and GFR - Last 168 Hours 06/29/21 06/30/21 22:31 06:50 Estim Creat Clear Calc 94.9 101.3 Estimated GFR > 60 > 60 Vancomycin Loading Dose: N/A Current Vancomycin Dosing Regimen: 1000 mg Q12H Date and Time for next Vancomycin Level to be drawn: 07/01 @ 1000 Pharmacist Comments on Vancomycin Plan: Vancomycin 1000 mg given in the ED on 06/30 at 0400. Will start maiteance dose in 8 hours since patient was no given a loading dose. Vancomycin 1000 mg Q12H will be started 06/30 @ 1200. Expected AUC 485 with trough of 14.9 Trough to be drawn prior to 4th dose Pharmacy will monitor renal function daily. Lauren Rodriguez PharmD Vancomycin dosing will take advantage of [employer] as a clinical decision support tool that uses Bayesian modeling to calculate individual patient's pharmacokinetic parameters and forecast the patient's drug concentration time course with the target goal AUC 24 range of 400 - 600 mg/L/hr.
--- NOTE | 2021-06-30 11:36 | P.EN_ITS ---
Event Note Date of Service: 06/30/21 Event Note: patient admitted early this morning with diagnosis of alcohol wit hdrawal and left foot cellulitis At present denies pain no fevers no chills General awake alert, no acute distress. Face small laceration left upper lid sutures in place Neck is supple no JVD. CVS regular rate rhythm, Respiratory lungs clear to auscultation, no respiratory distress, no wheeze, no rhonchi. Gastrointestinal abdomen soft, nontender, bowel sounds audible Extremities left foot swelling lateral border with area of fluctuation and tenderness to palpation Neuro nonfocal /tremulous 51-year-old male with a past medical history of hypertension, hyperlipidemia presented to the hospital with a chief complaint of fall.? Reportedly patient was found on the ground by the bystanders and subsequently brought into the hospital for further evaluation.? ? Noted to have? tremulousness secondary alcohol withdrawal and left foot cellulitis with pain limiting ambulation.? Concerns for safe disposition in the ER hence admitted for further management.? Left foot cellulitis/concern for abscess No evidence of sepsis Continue IV vancomycin foot x-ray showed? no concerning findings for osteomyelitis.? Ultrasound showed no evidence of abscess. Obtain surgery consultation Fall:? Appears to be mechanical in nature, likely due to unsteady gait with alcohol and left foot cellulitis, CT head and CT Cervical spine showed no acute findings.? Fall precautions. PT/ OT Alcohol dependence with high likelihood of withdrawal will place on phenobarb protocol DC Ativan, continue Thiamine, folate and multivitamins. Magnesium 2.2 DVT prophylaxis:? SCD boots Code status: Full code
--- NOTE | 2021-06-30 11:44 | PC.NURSE ---
patient awake/alert, pt monitoring engineer intact- sinus tach 108, iv antibiotics started per order, left food red/edema/warm to touch, pt refused pheno injection. requested sandwich and drink, pt was given this per his request. will continue to monitor.
--- NOTE | 2021-06-30 14:38 | PM.CNGS ---
History of Present Illness Consult details Consult date: 06/30/21 Narrative: 51-year-old male with known alcohol abuse, admitted last night because of cellulitis of the left foot. He actually brought to the ER after a fall with alcohol intoxication. There was no documentation of any head injury. The patient does not really provide much with regards to this history. He appears to still be inebriated at this time and does not really answer questions well. He was noted to have redness of the foot last night and was admitted for IV antibiotics. Review of Systems Review of Systems: Unavailable at this time. However, from the history, the patient did not seem to have any fever or chills before admission PMFSH Past Medical History Medical History ETOH abuse High cholesterol HTN (hypertension) Social History Social History Alcohol intake: current Alcohol intake frequency: 3 or more drinks per day Alcohol type: beer Patient Tobacco Use Status: Current someday Tobacco user service: No Current occupational status: unemployed Meds Allergies Allergy/AdvReac Type Severity Reaction Status Date / Time clams Allergy Severe HIVES, Verified 09/15/20 14:07 DIFFICULTY BREATHING Active Medications: Current Medications Famotidine (Famotidine 20 Mg Tablet) 20 mg PO BID [facility] Last Admin: 06/30/21 07:29 Dose: 20 mg Documented by: Folic Acid (Folic Acid 1 Mg Tablet) 1 mg PO DAILY [facility] Stop: 07/03/21 08:59 Last Admin: 06/30/21 07:29 Dose: 1 mg Documented by: Vancomycin HCl 1,000 mg/ (Sodium Chloride) 270 mls @ 270 mls/hr IV Q12H [facility] Last Admin: 06/30/21 11:38 Dose: 270 mls/hr Documented by: Medication (No Benzodiazepines) 1 each MISCELLANE DAILY [facility] Melatonin (Melatonin 3 Mg Tablet) 6 mg PO BEDTIME PRN PRN Reason: Insomnia Multivitamins/Vitamin C (Multivitamin Tablet) 1 tab PO DAILY [facility] Stop: 07/03/21 08:59 Last Admin: 06/30/21 07:29 Dose: 1 tab Documented by: Oxycodone HCl (Oxycodone Hcl Immed Release 5 Mg Tablet) 5 mg PO Q6H PRN PRN Reason: Pain, Severe (Pain Scale 7-10) Pharmacy Consult (Consult Rx Vancomycin Dosing) 1 each MISCELLANE DAILY PRN PRN Reason: Consult order Phenobarbital (Phenobarbital 15 Mg Tablet) 45 mg PO BID [facility]; Protocol Stop: 07/02/21 09:01 Phenobarbital (Phenobarbital 30 Mg Tablet) 30 mg PO BID [facility]; Protocol Stop: 07/04/21 09:01 Phenobarbital (Phenobarbital 30 Mg Tablet) 30 mg PO DAILY [facility]; Protocol Stop: 07/06/21 09:01 Phenobarbital Sodium (Phenobarbital Sodium 130 Mg/Ml Vial) 175.5 mg IM Q3H [facility]; Protocol Stop: 06/30/21 15:01 Last Admin: 06/30/21 14:06 Dose: Not Given Documented by: Senna (Sennosides 8.6 Mg Tablet) 17.2 mg PO BEDTIME PRN PRN Reason: Constipation Sodium Chloride (0.9 % Sodium Chloride Flush 3 Ml Syringe) 3 ml IVFLUSH QSHIFT [facility] Last Admin: 06/30/21 07:29 Dose: Not Given Documented by: Thiamine HCl (Thiamine Hcl 100 Mg Tablet) 100 mg PO DAILY [facility] Stop: 07/03/21 08:59 Last Admin: 06/30/21 07:29 Dose: 100 mg Documented by: Physical Exam Vital Signs: Vital Signs: Last Vital Signs Temp 98.1 F 06/30/21 06:24 Pulse 74 06/30/21 06:24 Resp 16 06/30/21 06:24 BP 128/88 06/30/21 06:24 Pulse Ox 94 06/30/21 06:24 BMI result Body Mass Index 24.3 Const: Other: Does not really answer questions well General: no acute distress and intoxicated appearing Resp: Effort & Inspection: normal respiratory effort Cardio: Rate: regular rate GI: Palpation (GI): Soft to palpation and nontender Extrem: Other: Edema of the forefoot on the left, with mild cellulitis, no area of fluctuance, no open wound, no skin breakdown no crepitus Results Labs Result diagrams: 07/03/21 10:05 07/05/21 07:12 Labs: Abnormal lab results 06/29/21 06/29/21 06/29/21 Range/Units 22:31 22:31 22:31 RBC 4.23 L (4.60-5.80) X10*6/uL Hgb 11.6 L (14.0-18.0) g/dl Hct 36.7 L (42.0-52.0) % Neut % (Auto) 82.5 H (45-73) % Lymph % (Auto) 8.6 L (20-40) % Lymph # (Auto) 0.5 L (1.2-4.9) X10*3/uL ESR 69 H (0-15) MM/HR Anion Gap (12-20) BUN 32 H (9-16) mg/dL Random Glucose 152 H D (60-115) mg/dL Lactic Acid (0.5-2.0) mmol/L Calcium 8.2 L (8.4-10.2) mg/dL C-Reactive Protein 2.73 H (< or = 0.50) mg/dL Albumin 3.3 L (3.5-5.0) g/dL 06/29/21 06/30/21 06/30/21 Range/Units 22:31 06:50 06:50 RBC 3.86 L (4.60-5.80) X10*6/uL Hgb 10.6 L (14.0-18.0) g/dl Hct 33.0 L (42.0-52.0) % Neut % (Auto) 82.5 H (45-73) % Lymph % (Auto) 6.6 L (20-40) % Lymph # (Auto) 0.4 L (1.2-4.9) X10*3/uL ESR (0-15) MM/HR Anion Gap 7 L (12-20) BUN 34 H (9-16) mg/dL Random Glucose (60-115) mg/dL Lactic Acid 2.1 H* (0.5-2.0) mmol/L Calcium 7.7 L D (8.4-10.2) mg/dL C-Reactive Protein (< or = 0.50) mg/dL Albumin (3.5-5.0) g/dL Short CBC 06/29/21 06/30/21 Range/Units 22:31 06:50 WBC 5.9 5.3 (4.8-10.8) X10*3/uL Hgb 11.6 L 10.6 L (14.0-18.0) g/dl Hct 36.7 L 33.0 L (42.0-52.0) % Plt Count 244 215 (160-400) X10*3/uL BMP 06/29/21 06/30/21 22:31 06:50 Sodium 138 138 Potassium 3.8 4.2 Chloride 103 108 Carbon Dioxide 27 27 BUN 32 H 34 H Creatinine 0.95 0.89 Calcium 8.2 L 7.7 L D Liver Function 06/29/21 Range/Units 22:31 Total Bilirubin 0.3 (0.0-1.0) mg/dL AST 34 (5-37) U/L ALT 19 (0-40) U/L Alkaline Phosphatase 73 D (39-117) U/L Albumin 3.3 L (3.5-5.0) g/dL All other labs normal. Assessment and Plan (1) Cellulitis of left foot: Status: Acute Physical exam shows cellulitis of the left foot at the forefoot area. I do not feel any fluctuance nor any open wound. I do not think he had he needs any I and D or debridement at this time. I would agree with IV antibiotics. Leg elevation would also be helpful. I had explained the plan to the patient. I am uncertain however if he has good comprehension of his situation. Thank you for the courtesy of the referral. I have discussed the above with the hospitalist. Procedures Date of Service Date of Service: 06/30/21
[2021-06-30 19:43] VITALS: BP 118/71; PULSE 116; RESP 20; TEMP 36.9; O2SAT 96
--- NOTE | 2021-06-30 21:45 | PC.NURSE ---
patient sleeping, wakes to verbal stimulus, patient ate 100% of meals today, vitals stable, shelter monitor sinus tach, no c/o pain or discomfort, pt refusing pheno protocol, agreeable to other medications, will continue to monitor.
[2021-06-30 23:52] VITALS: BP 106/69; PULSE 111; RESP 22; O2SAT 98
[2021-07-01] MEDS: vancomycin HCL 1,000 MG in 0.9 % Sodium Chloride 250 ML 270 MG IV ×2 (00:57→11:43)
[2021-07-01 03:12] VITALS: BP 126/79; PULSE 108; RESP 24; TEMP 37.6; O2SAT 98
[2021-07-01 06:14] VITALS: BP 116/78; PULSE 100; RESP 28; TEMP 37.4; O2SAT 96
[2021-07-01 07:49] LABS: Creatinine Clr Calc Pharmacy 114.2; Estimated Glomerular Filt Rate > 60
[2021-07-01] MEDS: 0.9 % Sodium Chloride Flush 3 ML SYRINGE IVFLUSH ×2 (09:12→15:32)
[2021-07-01] MEDS: PHENobarbitaL 15 MG TABLET 45 MG PO ×2 (09:14→22:49)
[2021-07-01] MEDS: Famotidine 20 MG TABLET PO ×2 (09:14→22:50)
[2021-07-01] MEDS: Folic Acid 1 MG TABLET PO (09:15)
[2021-07-01] MEDS: Multivitamin TABLET 1 TAB PO (09:15)
[2021-07-01] MEDS: Thiamine HCL 100 MG TABLET PO (09:15)
--- NOTE | 2021-07-01 09:53 | PC.NURSE ---
Pt alert/oriented, No s/sx of withdrawal. nsr on monitor. Left foot improving per Dr Montenegro, foot elevated on pillow. +pulses palpable with +CMS.
[2021-07-01 10:10] LABS: Vancomycin Trough 13.3 mcg/mL (10.0-20.0)
--- NOTE | 2021-07-01 12:09 | PC.NURSE ---
Left ac peripheral IV hard, painful, new IV site to right ac. Vanco started.
[2021-07-01 14:27] VITALS: BP 123/77; PULSE 102; RESP 20; O2SAT 97
--- NOTE | 2021-07-01 15:37 | HO.PM.IMPN ---
Subjective Subjective Date of Service: 07/01/21 Interval History: Patient complaining of left foot pain, denies alcohol withdrawal symptoms of anxiety, tremulous, tolerating diet , no other acute overnight issues noted. Review of Systems Review of Systems: Yes all other systems are reviewed and are negative Physical Exam Vital Signs: Vital Signs: Last Vital Signs Temp 99.4 F 07/01/21 06:14 Pulse 102 H 07/01/21 14:27 Resp 20 07/01/21 14:27 BP 123/77 07/01/21 14:27 Pulse Ox 97 07/01/21 14:27 BMI result Body Mass Index 24.3 General awake alert, no acute distress. Neck supple no JVD. CVS regular rate rhythm, Respiratory lungs clear to auscultation, no respiratory distress, no wheeze, no rhonchi. Gastrointestinal abdomen soft, nontender, bowel sounds audible, no guarding , no rigidity. Extremities no edema. Left foot significant improvement in redness and swelling, mild tenderness to palpation Neuro nonfocal Psych appropriate affect. Objective Data Active Medications Famotidine (Famotidine 20 Mg Tablet) 20 mg PO BID [facility] Last Admin: 07/01/21 09:14 Dose: 20 mg Documented by: MAINE Folic Acid (Folic Acid 1 Mg Tablet) 1 mg PO DAILY [facility] Stop: 07/03/21 08:59 Last Admin: 07/01/21 09:15 Dose: 1 mg Documented by: MAINE Vancomycin HCl 1,000 mg/ (Sodium Chloride) 270 mls @ 270 mls/hr IV Q12H [facility] Last Infusion: 07/01/21 13:01 Dose: 0 mls/hr Documented by: SHARI-MALIR Medication (No Benzodiazepines) 1 each MISCELLANE DAILY [facility] Melatonin (Melatonin 3 Mg Tablet) 6 mg PO BEDTIME PRN PRN Reason: Insomnia Multivitamins/Vitamin C (Multivitamin Tablet) 1 tab PO DAILY [facility] Stop: 07/03/21 08:59 Last Admin: 07/01/21 09:15 Dose: 1 tab Documented by: MAINE Oxycodone HCl (Oxycodone Hcl Immed Release 5 Mg Tablet) 5 mg PO Q6H PRN PRN Reason: Pain, Severe (Pain Scale 7-10) Pharmacy Consult (Consult Rx Vancomycin Dosing) 1 each MISCELLANE DAILY PRN PRN Reason: Consult order Phenobarbital (Phenobarbital 15 Mg Tablet) 45 mg PO BID [facility]; Protocol Stop: 07/02/21 09:01 Last Admin: 07/01/21 09:14 Dose: 45 mg Documented by: MAINE Phenobarbital (Phenobarbital 30 Mg Tablet) 30 mg PO BID [facility]; Protocol Stop: 07/04/21 09:01 Phenobarbital (Phenobarbital 30 Mg Tablet) 30 mg PO DAILY [facility]; Protocol Stop: 07/06/21 09:01 Senna (Sennosides 8.6 Mg Tablet) 17.2 mg PO BEDTIME PRN PRN Reason: Constipation Sodium Chloride (0.9 % Sodium Chloride Flush 3 Ml Syringe) 3 ml IVFLUSH QSHIFT [facility] Last Admin: 07/01/21 15:32 Dose: 3 ml Documented by: MAINE Thiamine HCl (Thiamine Hcl 100 Mg Tablet) 100 mg PO DAILY [facility] Stop: 07/03/21 08:59 Last Admin: 07/01/21 09:15 Dose: 100 mg Documented by: MAINE Labs CBC & Chem 7: 06/30/21 06:50 07/01/21 07:09 Labs: Laboratory Results - last 24 hr 07/01/21 07/01/21 07:09 09:44 Estim Creat Clear Calc 114.2 Estimated GFR > 60 Vancomycin Trough 13.3 Microbiology Microbiology Results: Microbiology 06/29/21 22:31 Blood Culture - Preliminary Blood - Venous No growth after 24 hours. 06/29/21 22:31 Blood Culture - Preliminary Blood - Venous No growth after 24 hours. Assessment and Plan (1) Cellulitis of left foot: Status: Acute (2) HTN (hypertension): Status: Acute (3) High cholesterol: Status: Acute (4) ETOH abuse: Status: Acute Assessment and Plan: 51-year-old male with a past medical history of hypertension, hyperlipidemia presented to the hospital with a chief complaint of fall.? Reportedly patient was found on the ground by the bystanders and subsequently brought into the hospital for further evaluation.? ? Noted to have? tremulousness secondary alcohol withdrawal and left foot cellulitis with pain limiting ambulation.? Concerns for safe disposition in the ER hence admitted for further management.? Left foot cellulitis No evidence of sepsis, no fevers, no chills normal WBC Continue IV vancomycin, blood cultures x2 negative will transition to by mouth antibiotics at a.m. foot x-ray showed? no concerning findings for osteomyelitis.? Ultrasound showed no evidence of abscess. Seen by General surgery no evidence of abscess noted Recommend to elevate legs Fall:? Appears to be mechanical in nature, likely due to unsteady gait with alcohol and left foot cellulitis, CT head and CT Cervical spine showed no acute findings.? Fall precautions. PT/ OT Alcohol dependence with high likelihood of withdrawal continue phenobarb protocol , Thiamine, folate and multivitamins.? Magnesium 2.2 DVT prophylaxis:? SCD boots Code status: Full code Quality Stroke Does the patient have a stroke diagnosis?: No VTE Prior VTE?: No VTE Risk Level:: Medical - low VTE Device Contraindication: N/A - Device Ordered VTE Drug Contraindication: Treatment Not Indicated
[2021-07-01 21:18] VITALS: BP 126/78; PULSE 107; RESP 30; TEMP 36.7; O2SAT 97
[2021-07-02 01:07] VITALS: BP 122/75; PULSE 105; RESP 20; TEMP 38.1; O2SAT 97
[2021-07-02] MEDS: vancomycin HCL 1,000 MG in 0.9 % Sodium Chloride 250 ML 270 MG IV ×2 (01:20→14:32)
[2021-07-02] MEDS: 0.9 % Sodium Chloride Flush 3 ML SYRINGE IVFLUSH ×3 (01:20→18:18)
[2021-07-02] MEDS: Acetaminophen 325 MG TABLET 650 MG PO (01:59)
[2021-07-02 05:02] VITALS: BP 122/80; PULSE 90; RESP 20; TEMP 37.7; O2SAT 96
[2021-07-02 05:38] VITALS: TEMP 37.7
[2021-07-02 06:39] LABS: Estimated Glomerular Filt Rate > 60
--- NOTE | 2021-07-02 07:02 | PC.NURSE ---
0100; patient alert oriented, no complaints of pain at this time. Patient's skin flushed and very warm to touch. Temporal temp showing 101.8, rectal temp shows 100.5 No prn tylenol order on emar. Dr. Corcoran made aware. Order for prn tylenol, administered. Recheck; temp down to 99.8, patient's skin no longer looked flushed. Patient resting comfortably.
--- NOTE | 2021-07-02 07:11 | PC.NURSE ---
0115; charge from ed called to report lab called with ciritical blood cultures positive. 1 of 2 shows gram positive cocci in clusters. Dr. Corcoran made aware. Patient already on iv antibiotics vancomycin.
[2021-07-02] MEDS: PHENobarbitaL 15 MG TABLET 45 MG PO (09:34)
[2021-07-02] MEDS: Thiamine HCL 100 MG TABLET PO (09:34)
[2021-07-02] MEDS: Multivitamin TABLET 1 TAB PO (09:34)
[2021-07-02] MEDS: Folic Acid 1 MG TABLET PO (09:34)
[2021-07-02] MEDS: Famotidine 20 MG TABLET PO ×2 (09:34→20:18)
[2021-07-02 11:41] VITALS: BP 146/99; PULSE 88; RESP 20; O2SAT 98
--- NOTE | 2021-07-02 12:27 | P.PNIM_ITS ---
Subjective Subjective Date of Service: 07/02/21 Interval History: Feeling better this morning complaining of left ankle pain ,blood cultures 1 out of 2 positive for Gram-positive cocci, had low-grade fever 100.5 overnight, denies cough, no chest pain no other issues overnight. Review of Systems Review of Systems: Yes all other systems are reviewed and are negative Physical Exam Vital Signs: Vital Signs: Last Vital Signs Temp 99.8 F 07/02/21 05:38 Pulse 88 07/02/21 11:41 Resp 20 07/02/21 11:41 BP 146/99 H 07/02/21 11:41 Pulse Ox 98 07/02/21 11:41 BMI result Body Mass Index 24.3 General awake, alert, no acute distress.? Neck? supple no JVD. CVS? regular rate rhythm, Respiratory lungs clear to auscultation, no respiratory distress, no wheeze, no rhonchi. Gastrointestinal abdomen soft, nontender, bowel sounds audible, no guarding , no rigidity. Extremities no edema. Left foot redness resolved, minimal swelling lateral margin of foot noted, no significant pain to palpation Neuro nonfocal Psych appropriate affect. Objective Data Active Medications Acetaminophen (Acetaminophen 325 Mg Tablet) 650 mg PO Q6H PRN PRN Reason: pain/fever Last Admin: 07/02/21 01:59 Dose: 650 mg Documented by: MICHAEL Famotidine (Famotidine 20 Mg Tablet) 20 mg PO BID [facility] Last Admin: 07/02/21 09:34 Dose: 20 mg Documented by: NIKOLAS Folic Acid (Folic Acid 1 Mg Tablet) 1 mg PO DAILY [facility] Stop: 07/03/21 08:59 Last Admin: 07/02/21 09:34 Dose: 1 mg Documented by: NIKOLAS Vancomycin HCl 1,000 mg/ (Sodium Chloride) 270 mls @ 270 mls/hr IV Q12H [facility] Last Infusion: 07/02/21 02:42 Dose: 0 mls/hr Documented by: TUMASY Medication (No Benzodiazepines) 1 each MISCELLANE DAILY [facility] Melatonin (Melatonin 3 Mg Tablet) 6 mg PO BEDTIME PRN PRN Reason: Insomnia Multivitamins/Vitamin C (Multivitamin Tablet) 1 tab PO DAILY [facility] Stop: 07/03/21 08:59 Last Admin: 07/02/21 09:34 Dose: 1 tab Documented by: NIKOLAS Oxycodone HCl (Oxycodone Hcl Immed Release 5 Mg Tablet) 5 mg PO Q6H PRN PRN Reason: Pain, Severe (Pain Scale 7-10) Pharmacy Consult (Consult Rx Vancomycin Dosing) 1 each MISCELLANE DAILY PRN PRN Reason: Consult order Phenobarbital (Phenobarbital 30 Mg Tablet) 30 mg PO BID [facility]; Protocol Stop: 07/04/21 09:01 Phenobarbital (Phenobarbital 30 Mg Tablet) 30 mg PO DAILY [facility]; Protocol Stop: 07/06/21 09:01 Senna (Sennosides 8.6 Mg Tablet) 17.2 mg PO BEDTIME PRN PRN Reason: Constipation Sodium Chloride (0.9 % Sodium Chloride Flush 3 Ml Syringe) 3 ml IVFLUSH QSHIFT [facility] Last Admin: 07/02/21 09:34 Dose: 3 ml Documented by: NIKOLAS Thiamine HCl (Thiamine Hcl 100 Mg Tablet) 100 mg PO DAILY [facility] Stop: 07/03/21 08:59 Last Admin: 07/02/21 09:34 Dose: 100 mg Documented by: NIKOLAS Labs CBC & Chem 7: 06/30/21 06:50 07/02/21 05:40 Labs: Laboratory Results - last 24 hr 07/02/21 05:40 Estim Creat Clear Calc 93.0 Estimated GFR > 60 Microbiology Microbiology Results: Microbiology 06/29/21 22:31 Blood Culture - Preliminary Blood - Venous Prelim: GPC Gram Stain only 06/29/21 22:31 Blood Culture - Preliminary Blood - Venous No growth after 48 hours. Assessment and Plan (1) Cellulitis of left foot: Status: Acute (2) High cholesterol: Status: Acute (3) HTN (hypertension): Status: Acute (4) ETOH abuse: Status: Acute Assessment and Plan: 51-year-old male with a past medical history of hypertension, hyperlipidemia presented to the hospital with a chief complaint of fall.? Reportedly patient was found on the ground by the bystanders and subsequently brought into the hospital for further evaluation.? ? Noted to have? tremulousness secondary alcohol withdrawal and left foot cellulitis with pain limiting ambulation.? Concerns for safe disposition in the ER hence admitted for further management.? Left foot cellulitis No evidence of sepsis, low-grade fever overnight,normal WBC on admission Continue IV vancomycin day 3, blood cultures 1/2 positive for gram-positive cocci will follow final culture foot x-ray showed?no concerning findings for osteomyelitis.? Ultrasound showed no evidence of abscess. Seen by General surgery no evidence of abscess noted Recommend to elevate legs Fall:? Appears to be mechanical in nature, likely due to unsteady gait with alcohol and left foot cellulitis, CT head and CT Cervical spine showed no acute findings.? Consult PT Alcohol dependence with high likelihood of withdrawal on phenobarb protocol , Thiamine, folate and multivitamins.? Magnesium 2.2 DVT prophylaxis:? SCD boots Code status: Full code Quality Stroke Does the patient have a stroke diagnosis?: No VTE Prior VTE?: No VTE Risk Level:: Medical - low VTE Device Contraindication: N/A - Device Ordered VTE Drug Contraindication: Treatment Not Indicated
--- NOTE | 2021-07-02 15:16 | PC.NURSE ---
Pt sleeping intermittently throughout the day. No complaints when awakens. A&Ox3, CIWA 0, medicated as per MAR orders throughout the shift. Awaiting bed assignment.
--- NOTE | 2021-07-02 18:00 | PC.NURSE ---
pt sitting upright in bed, no tremors noted. pt speaking in clear and even tones, tolerating po fluids with no difficulty.
[2021-07-02] MEDS: PHENobarbitaL 30 MG TABLET PO (20:18)
[2021-07-02] MEDS: Melatonin 3 MG TABLET 6 MG PO (20:18)
[2021-07-02 20:25] VITALS: BP 137/91; PULSE 102; RESP 24; TEMP 36.6; O2SAT 97
[2021-07-02 22:06] LABS: Vancomycin Trough 8.2 mcg/mL (10.0-20.0)
[2021-07-03] MEDS: vancomycin HCL 1,000 MG in 0.9 % Sodium Chloride 250 ML 270 MG IV (00:33)
[2021-07-03] MEDS: 0.9 % Sodium Chloride Flush 3 ML SYRINGE IVFLUSH ×3 (00:33→17:23)
[2021-07-03 03:46] VITALS: BP 136/80; PULSE 96; RESP 16; TEMP 36.8; O2SAT 99
[2021-07-03] MEDS: Famotidine 20 MG TABLET PO ×2 (08:08→21:15)
[2021-07-03] MEDS: PHENobarbitaL 30 MG TABLET PO ×2 (08:08→21:15)
[2021-07-03 08:09] VITALS: BP 132/91; PULSE 95; RESP 24; TEMP 36.7; O2SAT 98
[2021-07-03 10:28] LABS: MANUAL DIFF FLAG NO
[2021-07-03 10:30] LABS: Basophils Percent Auto 0.2 % (0-2); Eosinophils Absolute Auto 0.4 X10*3/uL (0.0-0.4); Eosinophils Percent Auto 8.2 % (0-4); Hematocrit 35.1 % (42.0-52.0); Hemoglobin 10.9 g/dl (14.0-18.0); Imm Gran Abs Auto 0.01 X10*3/uL (0.00-0.03); Imm Gran Pct Auto 0.2 % (0.0-0.4); Lymphocytes Absolute Auto 0.5 X10*3/uL (1.2-4.9); Lymphocytes Percent Auto 10.2 % (20-40); Mean Corpuscular HGB Conc 31.1 g/dl (31.0-36.0); Mean Corpuscular Hemoglobin 26.9 pg (27.0-33.0); Mean Corpuscular Volume 86.7 fL (80.0-98.0); Mean Platelet Volume 10.2 fL (9.4-12.4); Monocytes Absolute Auto 0.6 X10*3/uL (0.1-1.2); Monocytes Percent Auto 13.8 % (2-11); Neutrophils Absolute Auto 3.1 x10*3/uL (2.0-8.3); Neutrophils Percent Auto 67.4 % (45-73); Platelet Count 203 X10*3/uL (160-400); Red Blood Count 4.05 X10*6/uL (4.60-5.80); Red Cell Distribution Width 14.7 % (11.0-16.0); White Blood Count 4.6 X10*3/uL (4.8-10.8)
[2021-07-03 10:44] LABS: Anion Gap 8 (12-20); Blood Urea Nitrogen 18 mg/dL (9-16); Calcium 7.9 mg/dL (8.4-10.2); Carbon Dioxide 27 mmol/L (22-29); Chloride 106 mmol/L (96-108); Creatinine Clr Calc Pharmacy 118.7; Estimated Glomerular Filt Rate > 60; Glucose Random 118 mg/dL (60-115); Potassium 4.2 mmol/L (3.3-5.1); Sodium 137 mmol/L (135-145)
[2021-07-03 10:50] LABS: Vancomycin Random 7.6 mcg/mL (15-20)
--- NOTE | 2021-07-03 11:28 | MHC.RECOVSUP ---
Recovery Support note: Patient is a 51 year old [place] Citizen speaking male who [place] [facility] [place] while [place]. This administrative underwriter met with patient in [facility] [place] to discuss his alcohol use and recovery supports. Patient was sleeping when this administrative underwriter approached however awoke easily. Patient minimized his alcohol use, stating he only drinks a couple beers daily and that he does not find his alcohol use to be problematic. This administrative underwriter discussed with patient how he has had multiple falls while under the influence and that this pattern of behavior is very dangerous. Patient acknowledged. Discussed recovery supports with patient however he is not interested in pursuing these supports or receiving information on them at this time. Patient reiterates that he does not find his alcohol use to be a problem. Encouraged patient to inform staff if he would like to discuss his alcohol use and recovery supports further. Patient acknowledged. Discussed consultation with patient's RN.
--- NOTE | 2021-07-03 12:50 | P.PNIM_ITS ---
Subjective Subjective Date of Service: 07/03/21 Interval History: Complain of difficulty in ambulation due to left foot pain, denies fever chills no other acute issues overnight . Review of Systems Review of Systems: Yes all other systems are reviewed and are negative Physical Exam Vital Signs: Vital Signs: Last Vital Signs Temp 98.1 F 07/03/21 08:09 Pulse 95 07/03/21 08:09 Resp 24 H 07/03/21 08:09 BP 132/91 H 07/03/21 08:09 Pulse Ox 98 07/03/21 08:09 BMI result Body Mass Index 24.3 General awake, alert, no acute distress.? Neck? supple no JVD. CVS? regular rate rhythm, Respiratory lungs clear to auscultation, no respiratory distress, no wheeze, no rhonchi. Gastrointestinal abdomen soft, nontender, bowel sounds audible, no guarding , no rigidity. Extremities no edema. Left foot redness resolved, minimal swelling lateral margin of foot noted, mild pain to palpation Neuro nonfocal Psych appropriate affect. Objective Data Active Medications Acetaminophen (Acetaminophen 325 Mg Tablet) 650 mg PO Q6H PRN PRN Reason: pain/fever Last Admin: 07/02/21 01:59 Dose: 650 mg Documented by: MICHAEL Famotidine (Famotidine 20 Mg Tablet) 20 mg PO BID [facility] Last Admin: 07/03/21 08:08 Dose: 20 mg Documented by: GIGI Medication (No Benzodiazepines) 1 each MISCELLANE DAILY [facility] Melatonin (Melatonin 3 Mg Tablet) 6 mg PO BEDTIME PRN PRN Reason: Insomnia Last Admin: 07/02/21 20:18 Dose: 6 mg Documented by: ALESSANDRA Oxycodone HCl (Oxycodone Hcl Immed Release 5 Mg Tablet) 5 mg PO Q6H PRN PRN Reason: Pain, Severe (Pain Scale 7-10) Pharmacy Consult (Consult Rx Vancomycin Dosing) 1 each MISCELLANE DAILY PRN PRN Reason: Consult order Phenobarbital (Phenobarbital 30 Mg Tablet) 30 mg PO BID [facility]; Protocol Stop: 07/04/21 09:01 Last Admin: 07/03/21 08:08 Dose: 30 mg Documented by: GIGI Phenobarbital (Phenobarbital 30 Mg Tablet) 30 mg PO DAILY [facility]; Protocol Stop: 07/06/21 09:01 Senna (Sennosides 8.6 Mg Tablet) 17.2 mg PO BEDTIME PRN PRN Reason: Constipation Sodium Chloride (0.9 % Sodium Chloride Flush 3 Ml Syringe) 3 ml IVFLUSH QSHIFT [facility] Last Admin: 07/03/21 08:08 Dose: 3 ml Documented by: GIGI Labs CBC & Chem 7: 07/03/21 10:05 07/03/21 10:05 Labs: Laboratory Results - last 24 hr 07/02/21 07/03/21 07/03/21 21:29 10:05 10:05 MCV 86.7 MCH 26.9 L MCHC 31.1 RDW 14.7 Plt Count 203 MPV 10.2 Immature Gran % (Auto) 0.2 Neut % (Auto) 67.4 Lymph % (Auto) 10.2 L Marion % (Auto) 13.8 H Eos % (Auto) 8.2 H Baso % (Auto) 0.2 Lymph # (Auto) 0.5 L Marion # (Auto) 0.6 Eos # (Auto) 0.4 Baso # (Auto) 0.0 Abs Immat Gran (auto) 0.01 Absolute Neuts (auto) 3.1 Absolute Nucleated RBC 0.000 Nucleated RBC % (auto) 0.0 Anion Gap 8 L Estim Creat Clear Calc 118.7 Estimated GFR > 60 Random Glucose 118 H Calcium 7.9 L Vancomycin Trough 8.2 L Random Vancomycin 07/03/21 10:05 MCV MCH MCHC RDW Plt Count MPV Immature Gran % (Auto) Neut % (Auto) Lymph % (Auto) Marion % (Auto) Eos % (Auto) Baso % (Auto) Lymph # (Auto) Marion # (Auto) Eos # (Auto) Baso # (Auto) Abs Immat Gran (auto) Absolute Neuts (auto) Absolute Nucleated RBC Nucleated RBC % (auto) Anion Gap Estim Creat Clear Calc Estimated GFR Random Glucose Calcium Vancomycin Trough Random Vancomycin 7.6 L Microbiology Microbiology Results: Microbiology 06/29/21 22:31 Blood Culture - Final Blood - Venous Coag negative Staphylococcus Assessment and Plan (1) Cellulitis of left foot: Status: Acute (2) High cholesterol: Status: Acute (3) ETOH abuse: Status: Acute (4) HTN (hypertension): Status: Acute Assessment and Plan: 51-year-old male with a past medical history of hypertension, hyperlipidemia presented to the hospital with a chief complaint of fall.? Reportedly patient was found on the ground by the bystanders and subsequently brought into the hospital for further evaluation.? ? Noted to have? tremulousness secondary alcohol withdrawal and left foot cellulitis with pain limiting ambulation.? Concerns for safe disposition in the ER hence admitted for further management.? Left foot cellulitis No evidence of sepsis, no recurrent fevers overnight,normal WBC on admission on IV vancomycin day 4, blood cultures 1/2 positive for gram-positive cocci final sensitivity showed nonpathogenic bacteria, will DC IV vanco and change to by mouth Augmentin foot x-ray showed?no concerning findings for osteomyelitis.? Ultrasound showed no evidence of abscess. Seen by General surgery no evidence of abscess noted Recommend to elevate legs Fall:? Appears to be mechanical in nature, likely due to unsteady gait with alcohol and left foot cellulitis, CT head and CT Cervical spine showed no acute findings.? Seen by Physical therapy initially they recommended short-term rehab but patient made progress today able to ambulate with walker/cane will continue to encourage ambulation and hopefully discharge home. Alcohol dependence with high likelihood of withdrawal on phenobarb protocol , Thiamine, folate and multivitamins.? Magnesium 2.2 DVT prophylaxis:? SCD boots Code status: Full code Quality Stroke Does the patient have a stroke diagnosis?: No VTE Prior VTE?: No VTE Risk Level:: Medical - low VTE Device Contraindication: N/A - Device Ordered VTE Drug Contraindication: Treatment Not Indicated
--- NOTE | 2021-07-03 13:03 | PC.NURSE ---
call palced to pharmacy for Augmentin
[2021-07-03] MEDS: Amoxicillin/Potassium Clav 875 MG TABLET PO (14:27)
[2021-07-03 15:34] VITALS: BP 139/91; PULSE 102; RESP 22; TEMP 37.1; O2SAT 97
--- NOTE | 2021-07-03 16:20 | MHC.CM.PN ---
Addendum entered by Corrina Arce 07/04/21 14:16: PT NOW ACKNOWLEDGES HE IS NOT COVID VACCINATED. REFERRALS HAVE BEEN BROADCASTED FOR STR HOWEVER THERE IS NOTHING AVAILABLE LOCALLY PT IS NOT WILLING TO LEAVE THE AREA PT REPORTS HE MAY BE WILLING TO GO TO A SENIOR LIVING BUT ONLY IF IT IS IN [place] PT WILL DC TOMORROW STR VS SENIOR LIVING Original Note: CM MET WITH PT TO DISCUSS DC PLANNING PT WAS MADE AWARE THAT PT IS RECOMMENDING STR PT REPORTS HE MAY BE INTERESTED AND REQUESTS A BROAD REFERRAL BE MADE PT REPORTS HE IS COVID VACCINATED HOWEVER HE DOES NOT HAVE ANY INFORMATION ABOUT IT OR THE CARD SEVERAL REFERRALS WERE MADE. PT IS MEDICALLY CLEAR FOR DC ONCE A BED IS SECURED
[2021-07-03 20:10] VITALS: BP 124/90; PULSE 102; RESP 26; TEMP 37; O2SAT 96
[2021-07-03] MEDS: Acetaminophen 325 MG TABLET 650 MG PO (23:04)
[2021-07-04] VITALS: BP 140/97; PULSE 89; RESP 16; O2SAT 96
[2021-07-04] MEDS: Amoxicillin/Potassium Clav 875 MG TABLET PO ×2 (01:07→14:14)
--- NOTE | 2021-07-04 02:26 | PC.NURSE ---
call placed to hospitalist. pt okay to be off the monitoring coordinator. per dr vasquez
--- NOTE | 2021-07-04 06:07 | PC.NURSE ---
pt has slept thur the night with no issues. pt repositions self. no withdrawls noted.
[2021-07-04 06:44] LABS: Creatinine Clr Calc Pharmacy 130.7; Estimated Glomerular Filt Rate > 60
[2021-07-04 08:28] VITALS: BP 112/72; PULSE 96; RESP 16; O2SAT 96
[2021-07-04] MEDS: PHENobarbitaL 30 MG TABLET PO (09:15)
[2021-07-04] MEDS: Famotidine 20 MG TABLET PO ×2 (09:15→21:39)
[2021-07-04] MEDS: 0.9 % Sodium Chloride Flush 3 ML SYRINGE IVFLUSH ×2 (09:15→17:39)
--- NOTE | 2021-07-04 09:47 | PC.NURSE ---
pts IV line infiltrated, will place a new one
--- NOTE | 2021-07-04 13:35 | HO.PM.IMPN ---
Subjective Subjective Date of Service: 07/04/21 Interval History: Complaining of left foot pain, with difficulty in ambulation, no fevers , no chills. Review of Systems Review of Systems: Yes all other systems are reviewed and are negative Physical Exam Vital Signs: Vital Signs: Last Vital Signs Temp 98.6 F 07/03/21 20:10 Pulse 96 07/04/21 08:28 Resp 16 07/04/21 08:28 BP 112/72 07/04/21 08:28 Pulse Ox 96 07/04/21 08:28 BMI result Body Mass Index 24.3 General awake, alert, no acute distress.? Neck? supple no JVD. CVS? regular rate rhythm, Respiratory lungs clear to auscultation, no respiratory distress, no wheeze, no rhonchi. Gastrointestinal abdomen soft, nontender, bowel sounds audible, no guarding , no rigidity. Extremities no edema. Left foot redness resolved, swelling lateral margin of foot improving Neuro nonfocal Psych appropriate affect. Objective Data Active Medications Acetaminophen (Acetaminophen 325 Mg Tablet) 650 mg PO Q6H PRN PRN Reason: pain/fever Last Admin: 07/03/21 23:04 Dose: 650 mg Documented by: JORGE L Amoxicillin/Clavulanate Potassium (Amoxicillin/Potassium Clav 875 Mg Tablet) 875 mg PO Q12H [facility] Last Admin: 07/04/21 01:07 Dose: 875 mg Documented by: URSULA Famotidine (Famotidine 20 Mg Tablet) 20 mg PO BID [facility] Last Admin: 07/04/21 09:15 Dose: 20 mg Documented by: MANJEET Medication (No Benzodiazepines) 1 each MISCELLANE DAILY [facility] Melatonin (Melatonin 3 Mg Tablet) 6 mg PO BEDTIME PRN PRN Reason: Insomnia Last Admin: 07/02/21 20:18 Dose: 6 mg Documented by: ALESSANDRA Oxycodone HCl (Oxycodone Hcl Immed Release 5 Mg Tablet) 5 mg PO Q6H PRN PRN Reason: Pain, Severe (Pain Scale 7-10) Pharmacy Consult (Consult Rx Vancomycin Dosing) 1 each MISCELLANE DAILY PRN PRN Reason: Consult order Phenobarbital (Phenobarbital 30 Mg Tablet) 30 mg PO DAILY [facility]; Protocol Stop: 07/06/21 09:01 Senna (Sennosides 8.6 Mg Tablet) 17.2 mg PO BEDTIME PRN PRN Reason: Constipation Sodium Chloride (0.9 % Sodium Chloride Flush 3 Ml Syringe) 3 ml IVFLUSH QSHIFT [facility] Last Admin: 07/04/21 09:15 Dose: 3 ml Documented by: MANJEET Labs CBC & Chem 7: 07/03/21 10:05 07/04/21 06:24 Labs: Laboratory Results - last 24 hr 07/04/21 06:24 Estim Creat Clear Calc 130.7 Estimated GFR > 60 Assessment and Plan (1) Cellulitis of left foot: Status: Acute (2) HTN (hypertension): Status: Acute (3) High cholesterol: Status: Acute (4) ETOH abuse: Status: Acute Assessment and Plan: 51-year-old male with a past medical history of hypertension, hyperlipidemia presented to the hospital with a chief complaint of fall.? Reportedly patient was found on the ground by the bystanders and subsequently brought into the hospital for further evaluation.? ? Noted to have? tremulousness secondary alcohol withdrawal and left foot cellulitis with pain limiting ambulation.? Concerns for safe disposition in the ER hence admitted for further management.? Left foot cellulitis No evidence of sepsis, no recurrent fevers ,normal WBC on admission s/p IV vancomycin x 4 day,now on augmentin day 2, blood cultures 1/2 positive for gram-positive cocci final sensitivity showed nonpathogenic bacteria foot x-ray showed?no concerning findings for osteomyelitis.? Ultrasound showed no evidence of abscess. Seen by General surgery no evidence of abscess noted Foot swelling and redness significantly improved. Fall:? Appears to be mechanical in nature, likely due to unsteady gait with alcohol and left foot cellulitis, CT head and CT Cervical spine showed no acute findings.? Seen by Physical therapy initially they recommended short-term rehab but patient made progress able to ambulate with walker/cane will continue to encourage ambulation and hopefully discharge home. Patient is homeless psychosocial rehabilitation counselor arranging for snf and also looking for rehab Alcohol dependence with high likelihood of withdrawal on phenobarb protocol , Thiamine, folate and multivitamins.? Magnesium 2.2,seen by care team. DVT prophylaxis:? SCD boots Code status: Full code Quality Stroke Does the patient have a stroke diagnosis?: No VTE Prior VTE?: No VTE Risk Level:: Medical - low VTE Device Contraindication: N/A - Device Ordered VTE Drug Contraindication: Treatment Not Indicated
[2021-07-04 13:49] VITALS: BP 153/99; PULSE 100; RESP 18; O2SAT 100
[2021-07-04] MEDS: Melatonin 3 MG TABLET 6 MG PO (21:39)
--- NOTE | 2021-07-04 21:55 | PC.NURSE ---
Assumed care of pt Pt medicated per AUG Pt tolerated well NAD Will continue to monitor
[2021-07-05] MEDS: Amoxicillin/Potassium Clav 875 MG TABLET PO (01:01)
[2021-07-05 04:12] VITALS: RESP 16
[2021-07-05 07:43] LABS: Creatinine Clr Calc Pharmacy 115.6; Estimated Glomerular Filt Rate > 60
[2021-07-05 08:19] VITALS: BP 153/99; PULSE 100; O2SAT 100
[2021-07-05] MEDS: Famotidine 20 MG TABLET PO (08:42)
[2021-07-05] MEDS: 0.9 % Sodium Chloride Flush 3 ML SYRINGE IVFLUSH (08:42)
[2021-07-05] MEDS: PHENobarbitaL 30 MG TABLET PO (08:42)
[2021-07-05 08:54] VITALS: BP 112/81; PULSE 97; RESP 15; TEMP 36.6; O2SAT 96
--- NOTE | 2021-07-05 09:03 | MHC.CM.PN ---
Addendum entered by Corrina Arce 07/05/21 09:51: PT WILL EAT LUNCH HERE AND THEN TAKE THE SHUTTLE AT [address] HOU[address] TO [facility] PER HIS REQUEST. Addendum entered by Corrina Arce 07/05/21 09:12: CM MET WITH PT WHO CONFIRMS HE SPOKE TO HIS FRIEND LAST NIGHT AND WILL BE STAYING WITH HIM FOR AT LEAST A FEW DAYS. PT IS AWARE STR HAS BEEN RECOMMENDED AND THAT THERE ARE NO BED OFFERS AT THIS TIME. PT REPORTS FEELING WELL ENOUGH TO DC TO HIS FRIENDS HOME AND DECLINES TO WAIT FOR POTENTIAL BED OFFERS. SAFETY CONCERNS WERE DISCUSSED, PT REPORTS HE IS FEELING BETTER AND BELIEVES HE IS WELL ENOUGH TO DISCHARGE TO THE COMMUNITY. PT REPORTS HE DOES NOT KNOW THE ADDRESS BUT COULD WALK THERE. HE REPORTS IT IS NEAR THE [facility] [address]. CM WILL ARRANGE A SHUTTLE RIDE TO [facility] PER PT REQUEST Original Note: CM INFORMED THAT THE PT PLANS TO GO STAY WITH A FRIEND AT [place]. THERE ARE STILL NO BED OFFERS FOR STR
--- NOTE | 2021-07-05 09:35 | P.DS_ITS ---
DS: Providers Provider Date of Service: 07/05/21 Date of admission: 06/30/21 03:20 Primary care physician: Unknown Physician Consults: 06/30/21 10:30 Consult to General Surgery Routine Consulting Provider: Moe Andino Reason for consultation: left foot abscess Has provider been notified: No 07/03/21 09:48 Consult to Care Team Routine Comment: Reason for consultation: etoh abuse DS: Diagnosis Discharge Diagnosis (1) Cellulitis of left foot: Status: Acute (2) HTN (hypertension): Status: Acute (3) High cholesterol: Status: Acute (4) ETOH abuse: Status: Acute DS: Summary Hospital Course Hospital Course: Chief Complaint:? alcohol abuse /fall ?51-year-old male with a past medical history of hypertension, hyperlipidemia presented to the hospital with a chief complaint of fall.? Reportedly patient was found on the ground by the bystanders and subsequently brought into the hospital for further evaluation.? Patient mentioned that he has been drinking alcohol on a daily basis; denies any chest pain or palpitations.? Denies any head strike or loss of consciousness when he had the fall.? Denies any neck pain back pain or hip pain.? Denies any chest pain palpitations lightheadedness or dizziness.? Denies any fever chills cough.? Denies any GI symptoms.? Review of all other systems is negative except mentioned above ER course: Per ER team patient on presentation is still noted to be mildly tremulous; labs were essentially benign; afebrile and vitals stable; patient was given Ativan with mild improvement in his tremulousness; initially plan to discharge the patient but followed by noted that patient has erythema on the left foot concerning for cellulitis.? When tried to ambulate the patient patient was unsteady and ambulation limited secondary to the pain.? Given IV vancomycin for cellulitis of the left foot and admitted for further management. 51-year-old male with a past medical history of hypertension, hyperlipidemia presented to the hospital with a chief complaint of fall.? Reportedly patient was found on the ground by the bystanders and subsequently brought into the hospital for further evaluation.? ? Noted to have? tremulousness secondary to alcohol withdrawal and left foot cellulitis with pain limiting ambulation patient admitted to hospital with a diagnosis of Left foot cellulitis, there is no evidence of sepsis, had normal WBC on admission patient treated with IV vancomycin blood cultures 1/2 came back positive for coagulase-negative Staphylococcus, unlikely pathogen, Therefore antibiotic changed to by mouth Augmentin patient finished 5 day course of antibiotic left foot redness swelling has improved ,foot x-ray showed?no concerning findings for osteomyelitis.? Ultrasound showed no evidence of abscess, also evaluated by General surgery, patient required no intervention since patient is doing significantly better he is being discharged home to his friends patient was evaluated by physical therapy they recommended rehab but patient wishes to be discharged to his friend's house, no rehab beds available will discharge him with walker Unsteady gait and fall? Appears to be mechanical in nature, likely due to alcohol and left foot cellulitis, CT head and CT Cervical spine showed no acute findings, patient is being discharged home with walker with strong recommendation to abstain from alcohol. Alcohol dependence with high withdrawal risk treated with phenobarb protocol and having strongly recommended to abstain from alcohol. Time Spent with Patient Time attestation: Total time spent providing and/or coordinating discharge services: Discharge coordination time: Greater than 30 minutes Quality: Stroke Does the patient have a stroke diagnosis?: No Physical Exam Vital Signs: Vital Signs: Last Vital Signs Temp 97.8 F 07/05/21 08:54 Pulse 97 07/05/21 08:54 Resp 15 07/05/21 08:54 BP 112/81 07/05/21 08:54 Pulse Ox 96 07/05/21 08:54 BMI result Body Mass Index 24.3 General awake, jaja rt, no acute distr ess.? Neck? supple no JVD. CVS? regu lar rate rhythm, R espiratory lungs c lear to auscultati on, no respiratory distress, no whee ze, no rhonchi. Ga strointestinal abd omen soft, nontend er, bowel sounds a udible, no guardin g , no rigidity. E xtremities no racquel a. Left foot redne ss resolved, swell ing lateral margin of foot improved. Neuro nonfocal Ps ych appropriate af fect. DS: Data Data Completed and Pending Labs on day of discharge: Laboratory Results - last 24 hr 07/05/21 07:12 Creatinine 0.78 Estim Creat Clear Calc 115.6 Estimated GFR > 60 Discharge Plan Discharge Patient Disposition: Home, Self-Care Discharge Diagnosis: Left Foot cellulitis Use and withdrawal Referrals: Physician,Unknown J [Primary Care Provider] - 1 Week Discharge Medications: New (DME) walker Misc See Rx Instructions .Route Qty: 1 RF: 0 Discharge Orders: Discharge Order (Routine); Ordered 07/05/21 Ordered By: Franchesca Montenegro Diet: advance to usual diet Activity on Discharge: As tolerated Stand Alone Forms: Patient Portal Discharge page Print Language: Turkmen Activity Restrictions/Additional Instructions: Left foot cellulitis finished course of antibiotic, Please follow-up with primary care provider. Return to the ED for worsening redness, swelling, shortness of breath Walk with the help of a walker, prescription [facility] Care Plan Goals: Left foot cellulitis improved follow up with primary care physician or return to ER to remove stitches from left eye in next 3 to 4 days Health Concerns: Alcohol abuse strongly recommended to abstain from alcohol Plan of Treatment: Outpatient follow-up with primary care physician in next 4-5 days Assessment: Per discharge summary Patient Instructions: Cellulitis (ED), Abuse of Alcohol (ED)
--- NOTE | 2021-07-05 10:34 | PC.NURSE ---
Pt A&Ox3, LCA, no complaints of pain at this time. Pt ambulatory with no assistance, plan for DC today at 1300, pt will be taking the shuttle. Will continue to monitor.
== END 2021-07-05 14:23 | disposition home or self-care (01) | DRG 383 ==
LOC: HO.ED 06-30 03:03 → HO.EDOVER 06-30 03:29
PROVIDERS: Physician Assistant; Admitting Provider Hospitalist; Emergency Provider Emergency Medicine Emergency Medical Services; Visit Provider Hospitalist
DX: L03.116 Cellulitis of left lower limb (principal); E78.5 Hyperlipidemia, unspecified; I10 Essential (primary) hypertension; Z20.822 Contact with and (suspected) exposure to COVID-19; F10.239 Alcohol dependence with withdrawal, unspecified; F10.229 Alcohol dependence with intoxication, unspecified; F17.210 Nicotine dependence, cigarettes, uncomplicated; Z71.6 Tobacco abuse counseling; Y90.5 Blood alcohol level of 100-119 mg/100 ml
CPT/HCPCS: 36415; 70450; 72125; 73620; 80048; 80053; 80202; 82077; 82565; 83605; 83735; 85025; 85652; 86140; 87040; 87147; 87205; 87635; 93971; 96361; 96365; 97110; 97116; 97162; 97530; 99285; J2560; J3370

== ENCOUNTER 2021-07-05 18:10 | Emergency (ER) | payer MEDICAID, SELFPAY ==
[2021-07-05 18:36] VITALS: BP 115/78; PULSE 62; O2SAT 98
[2021-07-05 18:51] VITALS: BP 105/63; PULSE 104; RESP 18; TEMP 36.5; O2SAT 94; BMI 25.9
--- NOTE | 2021-07-05 19:00 | ED_ITS ---
HPI - Alcohol General Chief Complaint: ETOH/Substance Use Stated Complaint: ETOH US,FOUND OUTSIDE,CONCERN FOR HYPOTHERMIA Time Seen by Provider: 07/05/21 18:58 Source: patient Mode of arrival: EMS Limitations: no limitations History of Present Illness HPI narrative: Patient alcoholic and homeless brought by ambulance because he was feeling cold drinks 3-4 beers a day been to detox once only when he stayed sober for 2 months has not taken COVID vaccine no other active complaints otherwise Related Data Previous Rx's Medication Instructions Recorded walker #1 ea 07/05/21 Allergies Allergy/AdvReac Type Severity Reaction Status Date / Time clams Allergy Severe HIVES, Verified 09/15/20 14:07 DIFFICULTY BREATHING Review of Systems Review of Systems: Yes all other systems are reviewed and are negative PMFSH Past Medical History Medical History ETOH abuse High cholesterol HTN (hypertension) Social History Social History Alcohol intake: current Alcohol intake frequency: 3 or more drinks per day Alcohol type: beer Patient Tobacco Use Status: Current someday Tobacco user Use of substances other than those prescribed or required for medical reasons: No Advance Directives: No Advance Directives Information Provided: Yes service: No Current occupational status: unemployed Physical Exam Vital Signs: Vital Signs: Last Vital Signs Temp 98.0 F 07/05/21 22:00 Pulse 116 H 07/06/21 00:02 Resp 18 07/06/21 00:02 BP 119/69 07/06/21 00:02 Pulse Ox 93 07/06/21 00:02 BMI result Body Mass Index 25.9 Appearance: Alert. Oriented X3. No acute distress. Eyes: No pallor or icterus ENT: Pharynx normal. Oral Mucosa moist Neck: Normal inspection. Neck supple. CVS: Normal heart rate and rhythm. Pulses normal. Respiratory: No respiratory distress. Equal air entry bilateral, no wheezing/rales/rhonchi Abdomen: Soft and nontender. Bowel sounds are present, no mass palpable, no CVA tenderness Skin: Skin warm and dry. Normal skin color. Normal skin turgor. Extremities: No lower extremity edema. Neuro: Oriented X 3. No motor deficit. MDM - Alcohol MDM Narrative Medical decision making narrative: Patient seen by care team plan to place him in a prison or detox placed in the morning, very cold outside will keep the patient in the ER for now Lab Data Attestation: I reviewed the patient's lab results. Labs: Lab Results 07/05/21 Range/Units 19:11 COVID-19 (TYE) Negative (Negative) COVID-19 Clin Com See Note Discharge Plan Discharge Clinical Impression: ETOH abuse Patient Disposition: Home, Self-Care Instructions: Abuse of Alcohol (ED) Prescriptions: No Action (DME) nathaniel Arriaga See Rx Instructions .Route Qty: 1 RF: 0
[2021-07-05 19:32] LABS: COVID-19 Test Negative (Negative)
--- NOTE | 2021-07-05 20:08 | MHC.RECOVSUP ---
? Reason for consult:Recovery Support o Current location:[address] o Identified substance use concern: ETOH - Withdrawal - Seeking ATS (detox) - Support ? Intervention: o ATS bed search started/completed/in process o Community resources provided o Harm reduction discussion ? Plan: o Referral to [facility] o Follow up tomorrow o Patient to follow up with [facility] after discharge ? Additional information: No bed availability. Discussed harm reduction,housing, recovery coaching and [facility] with patient. Spoke with DR. Sanders re:shelters that were open tonight. There were none.
[2021-07-05 21:00] VITALS: BP 121/82; PULSE 105; RESP 18; TEMP 36.6; O2SAT 96
[2021-07-05 22:00] VITALS: BP 105/56; PULSE 118; RESP 18; TEMP 36.7; O2SAT 94
--- NOTE | 2021-07-05 22:31 | PC.NURSE ---
patient sleeping, wakes to verbal stimulus, pt has no complaints at this time, vitals obtained- pt tachy- will notify provider, ciwa 2, will continue to monitor.
[2021-07-05] MEDS: LORazepam 1 MG TABLET 2 MG PO (22:53)
--- NOTE | 2021-07-05 22:54 | PC.NURSE ---
provider notified of pts hr, pt was medicated with ativan per order
[2021-07-06 00:02] VITALS: BP 119/69; PULSE 116; RESP 18; O2SAT 93
[2021-07-06 03:31] VITALS: BP 114/63; PULSE 102; RESP 17; O2SAT 96
--- NOTE | 2021-07-06 03:36 | PC.NURSE ---
Pt asleep on stretcher in between care. Pt awoke during VS, requests PO. CIWA is 1 as pt is uncertain about date, otherwise alert and oriented. Pt offers no complaints of pain/discomfort. Pt VSS on RA. Pt provided PO. Stretcher in low locked position, rails raised, pt remains visible to staff. Plan for dispo in AM for safe DC.
[2021-07-06 07:55] VITALS: BP 117/70; PULSE 94; RESP 14; TEMP 36.2; O2SAT 92
--- NOTE | 2021-07-06 12:27 | MHC.RECOVSUP ---
? Reason for consult:Recovery support o Current location:DISCHARGED o Identified substance use concern:ETOH - Withdrawal - Seeking ATS (detox) - Support ? Intervention: o MAT started or to be started o Community resources provided o Harm reduction discussion ? Plan: o Referral to [facility] o Patient to follow up with [facility] after discharge ? Additional information:No bed availability, referred to [facility] and the [facility]. Pt. has an appt with the [facility] tomorrow at 10am.
== END 2021-07-06 12:13 | disposition home or self-care (01) ==
PROVIDERS: Emergency Provider Internal Medicine
DX: F10.10 Alcohol abuse, uncomplicated (principal); Y90.9 Presence of alcohol in blood, level not specified; R00.0 Tachycardia, unspecified; Z20.822 Contact with and (suspected) exposure to COVID-19; F17.200 Nicotine dependence, unspecified, uncomplicated; I10 Essential (primary) hypertension; E78.5 Hyperlipidemia, unspecified
CPT/HCPCS: 87635; 99285

== ENCOUNTER 2021-07-11 10:28 | Emergency (ER) | payer MEDICAID, SELFPAY ==
--- NOTE | ~2021-07-11 | CT_ITS ---
EXAMINATION: CT HEAD WITHOUT CONTRAST CT CERVICAL SPINE WITHOUT CONTRAST CLINICAL INFORMATION: Status post fall. Alcohol intoxication. COMPARISON: CT head and cervical spine of 06/29/2021, 06/09/2021, 01/25/2021 TECHNIQUE: Multidetector volumetric CT imaging of the head and cervical spine is acquired without intravenous contrast administration. Postprocessing is performed at a dedicated workstation. Multiplanar reformatted images are submitted. This CT scan was performed using dose optimization techniques as appropriate to a performed exam including the following: *Automated exposure control *Adjustment of mA and/or kV according to patient size (this includes techniques or standardized protocols for targeted exams were dose is matched to indication/reason for exam; i.e. extremities or head) *Use of iterative reconstruction technique DLP: 1165 mGy-cm FINDINGS: CT HEAD: There is no evidence of acute intracranial hemorrhage, midline shift, mass effect, acute territorial infarction, or abnormal extra-axial fluid collection. There is mild global volume loss with proportionate dilatation of the ventricles and cortical sulci, somewhat age-inappropriate, however, probably related to underlying alcohol use/abuse. No abnormal parenchymal attenuation is noted. The mastoid air cells and middle ear cavities are well aerated. Mild mucosal thickening in the inferior portions of the bilateral maxillary sinuses. Incidental note is made of periapical lucency around the right upper 1st or 2nd molar is again noted suggesting dental caries. There are stable findings suggesting dental erosion/fracture involving multiple other maxillary teeth, not significantly changed when compared to facial bone CT scan of 08/15/2020. No evidence of significant calvarial soft tissue swelling or hematoma. There is probable mild soft tissue swelling in the bilateral anterior frontal region. No acute abnormality of the osseous calvarium. Chronic fracture deformity of the midportion of the left zygomatic arch is noted. CT CERVICAL SPINE: The vertebral body heights and alignment are maintained. Intervertebral disc spaces are well preserved. Stable minimal anterior subluxation of C7 over T1. The posterior elements are intact and in normal alignment. Atlantoaxial and atlantooccipital alignments are maintained. No evidence of significant central canal or neural foraminal stenosis. No evidence of prevertebral soft tissue swelling. The airway is patent. No significant thyroid nodule is noted. Peripheral ground-glass opacification is noted in the visualized right lung apex, findings do not appear to be significantly changed when compared to previous chest CT of 11/01/2020. CT/CT cervical spine wo con IMPRESSION: 1. No evidence of acute intracranial abnormality. 2. No evidence of acute fracture of the osseous calvarium. 3. Global parenchymal volume loss with proportionate dilatation of the ventricles and sulci, findings are stable, however, somewhat inappropriate for patient's age and likely related to suspected underlying alcohol disorder. 4. No evidence of acute fracture or subluxation in the cervical spine. 5. Findings suggestive of dental caries involving multiple maxillary teeth.
[2021-07-11 11:12] VITALS: BP 132/96; PULSE 110; PULSE 130; RESP 19; TEMP 32.9; O2SAT 97; BMI 25.3
[2021-07-11 12:00] VITALS: BP 124/87; PULSE 114; RESP 18; TEMP 36.4; O2SAT 97
--- NOTE | 2021-07-11 12:08 | PC.NURSE ---
patient a&o, campus monitor sinus tach, vss, pt c/o rt hand pain, bilateral feet in warm water, nona hugger applied to pts bed, will continue to monitor.
--- NOTE | 2021-07-11 13:49 | PC.NURSE ---
pt to ct scan
[2021-07-11 14:00] VITALS: BP 114/77; PULSE 114; RESP 18; TEMP 36.7; O2SAT 97
--- NOTE | 2021-07-11 14:05 | ED_ITS ---
HPI - General Adult General Chief complaint: General Medical Stated complaint: FALL ON ICE,NECK/BACK PN,HYPOTHERMIA D/T EXPOSURE Time Seen by Provider: 07/11/21 13:23 Source: patient and EMS Mode of arrival: EMS Limitations: no limitations History of Present Illness HPI narrative: Patient comes to the emergency room complaining slipping on ice a few hours prior to EMS picked him up. Patient also complaining of having painful purple fingers and toes. Related Data Previous Rx's Medication Instructions Recorded walker #1 ea 07/05/21 Allergies Allergy/AdvReac Type Severity Reaction Status Date / Time clams Allergy Severe HIVES, Verified 07/11/21 11:12 DIFFICULTY BREATHING Review of Systems Verdana 4l Review of Systems: Verdana 4d Verdana 4d Constitutional : No Weight loss, No Fever, No Chills, No Night Sweats, No Fatigue, No Malaise ENT/Mouth : No Hearing loss, No Ear Pain, No Nasal Congestion, No Sinus Pain, No Hoarseness, No sore throat, No Rhinorrhea, No Swallowing DifficultyDifficulty Eyes: No Eye Pain, No Swelling, No Redness, No Foreign Body, No Discharge, No Vision Changes Cardiovascular : No Chest Pain, No SOB, No Dyspnea on Exertion, No Orthopnea, No Edema, No Palpitations Respiratory : No Cough, No Sputum, No Wheezing, No Smoke Exposure, No Dyspnea Gastrointestinal : No Nausea, No Vomiting, No Diarrhea, No Constipation, No abdominal Pain, No Hematochezia, No Melena Genitourinary : no irregular bleeding, No Dysuria, No Urinary Frequency, No Hematuria, No Urinary Incontinence, No Urgency, No Flank Pain, No Urinary Flow Changes, No Hesitancy Musculoskeletal : Complaining purple toes and fingers, painful to touch Skin : No Skin Lesions, No rash Neuro : No Weakness, No Numbness, No Paresthesias, No Loss of Consciousness, No Dizziness, No Headache Psych : No Anxiety/Panic, No Depression, No SI/HI/AH/VH, No Social Issues, Heme/Lymph: No Bruising, No Bleeding,No Lymphadenopathy Endocrine : No Polyuria, No Polydipsia, No Temperature Intolerance PMFSH Past Medical History Medical History ETOH abuse High cholesterol HTN (hypertension) Social History Social History Alcohol intake: current Alcohol intake frequency: 3 or more drinks per day Alcohol type: beer Patient Tobacco Use Status: Current someday Tobacco user Advance Directives: No Advance Directives Information Provided: Yes service: No Current occupational status: unemployed Physical Exam Verdana 4l Vital Signs: Verdana 4d Verdana 4d Vital Signs: Verdana 4d Verdana 4Bd Last Vital Signs Verdana 4d Sales Service Promoter New 4d Sales Service Promoter New 4d Temp 98.0 F 07/11/21 14:00 Sales Service Promoter New 4d Pulse 114 H 07/11/21 14:00 Sales Service Promoter NewNew 4d Resp 18 07/11/21 14:00 BP 114/77 07/11/21 14:00 Pulse Ox 97 07/11/21 14:00 BMI result Body Mass Index 25.3 Const: Other: Appearance: Alert. Oriented X3. Looks very uncomfortable Eyes: Pupils equal, round and reactive to light. ENT: Pharynx normal. Neck: Normal inspection. Neck supple. No lymph nodes noted. No crepitus, no palpable step-offs, no cervical spine tenderness CVS: Tachycardic. Pulses normal. Normal S1 and S2 Respiratory: No respiratory distress. Breath sounds normal. No Wheezing. No rales Abdomen: Soft and nontender. No rigidity. No distention. good BS x4 Skin: Skin cold, mottled, patient has frostbite to the toes in both feet. Patient is unable to move his toes due to pain Extremities: +2 bilateral lower extremity edema No Lacerations. No Rash Neuro: Oriented X 3. No motor deficit. No sensory deficit. Moving all extermities. No slurred speech. Course Course Course Narrative: On arrival, we removed all of patient's wet clothes. We put him on warm blankets, Clarita Hugger, his lower extremities/feet were soaked in warm water. Overall patient feels much better, patient is not moving his toes, toes pinked up as well as his hands. Patient is moving toes and fingers with normal range of motion. Head CT and neck CT results are pending. Neurological exam within normal limits. Of patient's labs are pending as well. Patient is resting comfortably. Patient is slightly tachycardic at 01:05. Patient no longer having pain in his hands or feet. CPK is 658, no renal failure. A 2nd troponin is pending. Patient has no chest pain. Patient will need some resources prior to discharge for shelters. Sign out given to Dr. Ballesteros Medical Decision Making Lab Data Result diagrams: 07/11/21 14:42 07/11/21 14:42 Labs: Lab Results 07/11/21 07/11/21 07/11/21 Range/Units 14:42 14:42 14:42 WBC 8.7 (4.8-10.8) X10*3/uL RBC 4.27 L (4.60-5.80) X10*6/uL Hgb 11.7 L (14.0-18.0) g/dl Hct 35.8 L (42.0-52.0) % MCV 83.8 (80.0-98.0) fL MCH 27.4 (27.0-33.0) pg MCHC 32.7 (31.0-36.0) g/dl RDW 14.4 (11.0-16.0) % Plt Count 269 D (160-400) X10*3/uL MPV 9.8 (9.4-12.4) fL Immature Gran % (Auto) 0.3 (0.0-0.4) % Neut % (Auto) 87.2 H (45-73) % Lymph % (Auto) 4.7 L (20-40) % Mercer % (Auto) 7.4 (2-11) % Eos % (Auto) 0.2 (0-4) % Baso % (Auto) 0.2 (0-2) % Lymph # (Auto) 0.4 L (1.2-4.9) X10*3/uL Mercer # (Auto) 0.7 (0.1-1.2) X10*3/uL Eos # (Auto) 0.0 (0.0-0.4) X10*3/uL Baso # (Auto) 0.0 (0.0-0.2) X10*3/uL Abs Immat Gran (auto) 0.03 (0.00-0.03) X10*3/uL Absolute Neuts (auto) 7.6 (2.0-8.3) x10*3/uL Absolute Nucleated RBC 0.000 (0.0-0.012) X10*3/uL Nucleated RBC % (auto) 0.0 (0.0-0.2) /100WBC Sodium 137 (135-145) mmol/L Potassium 3.9 (3.3-5.1) mmol/L Chloride 103 (96-108) mmol/L Carbon Dioxide 20 L (22-29) mmol/L Anion Gap 18 (12-20) BUN 34 H D (9-16) mg/dL Creatinine 0.81 (0.5-1.4) mg/dL Estim Creat Clear Calc 100.8 Estimated GFR > 60 Random Glucose 122 H (60-115) mg/dL Lactic Acid (0.5-2.0) mmol/L Calcium 8.5 D (8.4-10.2) mg/dL Magnesium 2.0 (1.6-2.6) mg/dL Total Bilirubin 0.4 (0.0-1.0) mg/dL Direct Bilirubin 0.2 (0.0-0.5) mg/dL AST 30 (5-37) U/L ALT 12 (0-40) U/L Alkaline Phosphatase 74 (39-117) U/L Total Creatine Kinase 658 H (38-174) U/L Troponin I High Sens 19.5 (<3.5-35.0) ng/L B-Natriuretic Peptide (<100) pg/mL Total Protein 7.8 (6.5-8.0) g/dL Albumin 3.1 L (3.5-5.0) g/dL Ethyl Alcohol mg/dL COVID-19 (TYE) (Negative) COVID-19 Clin Com 07/11/21 07/11/21 07/11/21 Range/Units 14:42 14:42 14:42 WBC (4.8-10.8) X10*3/uL RBC (4.60-5.80) X10*6/uL Hgb (14.0-18.0) g/dl Hct (42.0-52.0) % MCV (80.0-98.0) fL MCH (27.0-33.0) pg MCHC (31.0-36.0) g/dl RDW (11.0-16.0) % Plt Count (160-400) X10*3/uL MPV (9.4-12.4) fL Immature Gran % (Auto) (0.0-0.4) % Neut % (Auto) (45-73) % Lymph % (Auto) (20-40) % Mercer % (Auto) (2-11) % Eos % (Auto) (0-4) % Baso % (Auto) (0-2) % Lymph # (Auto) (1.2-4.9) X10*3/uL Mercer # (Auto) (0.1-1.2) X10*3/uL Eos # (Auto) (0.0-0.4) X10*3/uL Baso # (Auto) (0.0-0.2) X10*3/uL Abs Immat Gran (auto) (0.00-0.03) X10*3/uL Absolute Neuts (auto) (2.0-8.3) x10*3/uL Absolute Nucleated RBC (0.0-0.012) X10*3/uL Nucleated RBC % (auto) (0.0-0.2) /100WBC Sodium (135-145) mmol/L Potassium (3.3-5.1) mmol/L Chloride (96-108) mmol/L Carbon Dioxide (22-29) mmol/L Anion Gap (12-20) BUN (9-16) mg/dL Creatinine (0.5-1.4) mg/dL Estim Creat Clear Calc Estimated GFR Random Glucose (60-115) mg/dL Lactic Acid 1.3 (0.5-2.0) mmol/L Calcium (8.4-10.2) mg/dL Magnesium (1.6-2.6) mg/dL Total Bilirubin (0.0-1.0) mg/dL Direct Bilirubin (0.0-0.5) mg/dL AST (5-37) U/L ALT (0-40) U/L Alkaline Phosphatase (39-117) U/L Total Creatine Kinase (38-174) U/L Troponin I High Sens (<3.5-35.0) ng/L B-Natriuretic Peptide (<100) pg/mL Total Protein (6.5-8.0) g/dL Albumin (3.5-5.0) g/dL Ethyl Alcohol < 10 mg/dL COVID-19 (TYE) Negative (Negative) COVID-19 Clin Com See Note 07/11/21 Range/Units 14:42 WBC (4.8-10.8) X10*3/uL RBC (4.60-5.80) X10*6/uL Hgb (14.0-18.0) g/dl Hct (42.0-52.0) % MCV (80.0-98.0) fL MCH (27.0-33.0) pg MCHC (31.0-36.0) g/dl RDW (11.0-16.0) % Plt Count (160-400) X10*3/uL MPV (9.4-12.4) fL Immature Gran % (Auto) (0.0-0.4) % Neut % (Auto) (45-73) % Lymph % (Auto) (20-40) % Mercer % (Auto) (2-11) % Eos % (Auto) (0-4) % Baso % (Auto) (0-2) % Lymph # (Auto) (1.2-4.9) X10*3/uL Mercer # (Auto) (0.1-1.2) X10*3/uL Eos # (Auto) (0.0-0.4) X10*3/uL Baso # (Auto) (0.0-0.2) X10*3/uL Abs Immat Gran (auto) (0.00-0.03) X10*3/uL Absolute Neuts (auto) (2.0-8.3) x10*3/uL Absolute Nucleated RBC (0.0-0.012) X10*3/uL Nucleated RBC % (auto) (0.0-0.2) /100WBC Sodium (135-145) mmol/L Potassium (3.3-5.1) mmol/L Chloride (96-108) mmol/L Carbon Dioxide (22-29) mmol/L Anion Gap (12-20) BUN (9-16) mg/dL Creatinine (0.5-1.4) mg/dL Estim Creat Clear Calc Estimated GFR Random Glucose (60-115) mg/dL Lactic Acid (0.5-2.0) mmol/L Calcium (8.4-10.2) mg/dL Magnesium (1.6-2.6) mg/dL Total Bilirubin (0.0-1.0) mg/dL Direct Bilirubin (0.0-0.5) mg/dL AST (5-37) U/L ALT (0-40) U/L Alkaline Phosphatase (39-117) U/L Total Creatine Kinase (38-174) U/L Troponin I High Sens (<3.5-35.0) ng/L B-Natriuretic Peptide 59 (<100) pg/mL Total Protein (6.5-8.0) g/dL Albumin (3.5-5.0) g/dL Ethyl Alcohol mg/dL COVID-19 (TYE) (Negative) COVID-19 Clin Com Discharge Plan Discharge Clinical Impression: Frostbite of both feet Patient Disposition: Still a Patient Prescriptions: No Action (DME) walker Misc See Rx Instructions .Route Qty: 1 RF: 0
--- NOTE | 2021-07-11 14:13 | ECG_ITS ---
Test Reason : TACHYCARDIA Blood Pressure : / mmHG Vent. Rate : 113 BPM Atrial Rate : 113 BPM P-R Int : 174 ms QRS Dur : 084 ms QT Int : 308 ms P-R-T Axes : 052 -14 038 degrees QTc Int : 422 ms Sinus tachycardia with occasional Premature ventricular complexes Minimal voltage criteria for LVH, may be normal variant ( [place] product ) Inferior infarct (cited on or before 04-NOV-2020) Abnormal ECG When compared with ECG of 25-JAN-2021 13:44, Premature ventricular complexes are now Present Referred By: Marivel Garcia Electronically Signed By:Kahlil Perales
[2021-07-11 14:48] LABS: MANUAL DIFF FLAG NO
[2021-07-11] MEDS: 0.9 % Sodium Chloride 1,000 ML 999 ML IVCONT (14:49)
--- NOTE | 2021-07-11 14:50 | PC.NURSE ---
iv inserted, labs drawn, covid swab obtained, vitals stable, pt sinus tach on monitor, will continue to monitor
[2021-07-11 14:51] LABS: Basophils Percent Auto 0.2 % (0-2); Eosinophils Percent Auto 0.2 % (0-4); Hematocrit 35.8 % (42.0-52.0); Hemoglobin 11.7 g/dl (14.0-18.0); Imm Gran Abs Auto 0.03 X10*3/uL (0.00-0.03); Imm Gran Pct Auto 0.3 % (0.0-0.4); Lymphocytes Absolute Auto 0.4 X10*3/uL (1.2-4.9); Lymphocytes Percent Auto 4.7 % (20-40); Mean Corpuscular HGB Conc 32.7 g/dl (31.0-36.0); Mean Corpuscular Hemoglobin 27.4 pg (27.0-33.0); Mean Corpuscular Volume 83.8 fL (80.0-98.0); Mean Platelet Volume 9.8 fL (9.4-12.4); Monocytes Absolute Auto 0.7 X10*3/uL (0.1-1.2); Monocytes Percent Auto 7.4 % (2-11); Neutrophils Absolute Auto 7.6 x10*3/uL (2.0-8.3); Neutrophils Percent Auto 87.2 % (45-73); Platelet Count 269 X10*3/uL (160-400); Red Blood Count 4.27 X10*6/uL (4.60-5.80); Red Cell Distribution Width 14.4 % (11.0-16.0); White Blood Count 8.7 X10*3/uL (4.8-10.8)
[2021-07-11 15:05] LABS: Lactic Acid 1.3 mmol/L (0.5-2.0)
[2021-07-11 15:08] LABS: Ethanol < 10 mg/dL
[2021-07-11 15:11] LABS: Alanine Aminotransferase 12 U/L (0-40); Albumin Level 3.1 g/dL (3.5-5.0); Alkaline Phosphatase 74 U/L (39-117); Anion Gap 18 (12-20); Aspartate Amino Transferase 30 U/L (5-37); Bilirubin Direct 0.2 mg/dL (0.0-0.5); Bilirubin Total 0.4 mg/dL (0.0-1.0); Blood Urea Nitrogen 34 mg/dL (9-16); Calcium 8.5 mg/dL (8.4-10.2); Carbon Dioxide 20 mmol/L (22-29); Chloride 103 mmol/L (96-108); Creatinine Clr Calc Pharmacy 100.8; Estimated Glomerular Filt Rate > 60; Glucose Random 122 mg/dL (60-115); Potassium 3.9 mmol/L (3.3-5.1); Sodium 137 mmol/L (135-145); Total Protein 7.8 g/dL (6.5-8.0)
[2021-07-11 15:17] LABS: B Type Natriuretic Peptide 59 pg/mL (<100); Troponin-I High Sensitivity 19.5 ng/L (<3.5-35.0)
[2021-07-11 15:23] LABS: COVID-19 Test Negative (Negative); IDNOW Serial# 08D9AD1C
[2021-07-11 16:00] VITALS: BP 115/69; PULSE 120; RESP 18; O2SAT 96
[2021-07-11 17:39] LABS: Appearance Urine HAZY; Color Urine YELLOW; Glucose Urine UA NEG (NEG); Leukocyte Esterase Urine NEG (NEG); Nitrite Urine NEG (NEG); PH 5.5 (5.0-8.0); Specific Gravity - Urine >= 1.030 (1.005-1.025); UACC Culture Trigger NO; Urine Blood NEG (NEG); Urine Ketones 5 MG/DL (NEG); Urine Protein 1+ MG/DL (NEG-TRACE)
[2021-07-11 17:47] LABS: RBC Urine 0 /HPF (0)
[2021-07-11 17:48] LABS: Amorphous Sediment Urine 1+ /LPF; Amphetamine Screen Urine Not Detected (Not Detect); Barbiturates, Urine POSITIVE (Not Detect); Benzodiazepines Screen Urine Not Detected (Not Detect); Cannabinoid Screen Urine Not Detected (Not Detect); Cocaine Screen Urine Not Detected (Not Detect); Fentanyl, urine Not Detected (Not Detect); Mucus Urine 3+ /LPF; Opiate Screen Urine Not Detected (Not Detect); Phencyclidine Screen Urine Not Detected (Not Detect); Squamous Epithelial Cell Urine TRACE /LPF
[2021-07-11 18:00] VITALS: BP 117/71; PULSE 122; RESP 18; TEMP 36.7; O2SAT 96
[2021-07-11 18:11] LABS: Troponin-I High Sensitivity 20.8 ng/L (<3.5-35.0)
--- NOTE | 2021-07-11 19:23 | ED_ITS ---
HPI - General Adult General Chief complaint: General Medical Stated complaint: FALL ON ICE,NECK/BACK PN,HYPOTHERMIA D/T EXPOSURE Time Seen by Provider: 07/11/21 13:23 Source: patient and EMS Mode of arrival: EMS Limitations: no limitations Related Data Previous Rx's Medication Instructions Recorded walker #1 ea 07/05/21 Allergies Allergy/AdvReac Type Severity Reaction Status Date / Time clams Allergy Severe HIVES, Verified 07/11/21 11:12 DIFFICULTY BREATHING PMFSH Past Medical History Medical History ETOH abuse High cholesterol HTN (hypertension) Social History Social History Alcohol intake: current Alcohol intake frequency: 3 or more drinks per day Alcohol type: beer Patient Tobacco Use Status: Current someday Tobacco user Advance Directives: No Advance Directives Information Provided: Yes service: No Current occupational status: unemployed Physical Exam Verdana 4l Vital Signs: Verdana 4d Verdana 4d Vital Signs: Verdana 4d Verdana 4Bd Last Vital Signs Verdana 4d Rn House Supervisor New 4d Rn House Supervisor New 4d Temp 98.0 F 07/11/21 18:00 Rn House Supervisor New 4d Pulse 122 H 07/11/21 18:00 Rn House Supervisor NewNew 4d Resp 18 07/11/21 18:00 BP 117/71 07/11/21 18:00 Pulse Ox 96 07/11/21 18:00 BMI result Body Mass Index 25.3 Medical Decision Making MDM Narrative Medical decision making narrative: Patient's 2nd troponin showed no increase. Patient has been awake and alert. Patient has persistent tachycardia. Patient denies any substance abuse for 2 weeks. Patient's feet are pink, well perfused, warm, with mild edema. Patient states he cannot walk secondary to the pain. Patient will be held in the ED pending social Service evaluation or morning Lab Data Result diagrams: 07/11/21 14:42 07/11/21 14:42 Labs: Lab Results 07/11/21 07/11/21 07/11/21 Range/Units 14:42 14:42 14:42 WBC 8.7 (4.8-10.8) X10*3/uL RBC 4.27 L (4.60-5.80) X10*6/uL Hgb 11.7 L (14.0-18.0) g/dl Hct 35.8 L (42.0-52.0) % MCV 83.8 (80.0-98.0) fL MCH 27.4 (27.0-33.0) pg MCHC 32.7 (31.0-36.0) g/dl RDW 14.4 (11.0-16.0) % Plt Count 269 D (160-400) X10*3/uL MPV 9.8 (9.4-12.4) fL Immature Gran % (Auto) 0.3 (0.0-0.4) % Neut % (Auto) 87.2 H (45-73) % Lymph % (Auto) 4.7 L (20-40) % [place] % (Auto) 7.4 (2-11) % Eos % (Auto) 0.2 (0-4) % Baso % (Auto) 0.2 (0-2) % Lymph # (Auto) 0.4 L (1.2-4.9) X10*3/uL [place] # (Auto) 0.7 (0.1-1.2) X10*3/uL Eos # (Auto) 0.0 (0.0-0.4) X10*3/uL Baso # (Auto) 0.0 (0.0-0.2) X10*3/uL Abs Immat Gran (auto) 0.03 (0.00-0.03) X10*3/uL Absolute Neuts (auto) 7.6 (2.0-8.3) x10*3/uL Absolute Nucleated RBC 0.000 (0.0-0.012) X10*3/uL Nucleated RBC % (auto) 0.0 (0.0-0.2) /100WBC Sodium 137 (135-145) mmol/L Potassium 3.9 (3.3-5.1) mmol/L Chloride 103 (96-108) mmol/L Carbon Dioxide 20 L (22-29) mmol/L Anion Gap 18 (12-20) BUN 34 H D (9-16) mg/dL Creatinine 0.81 (0.5-1.4) mg/dL Estim Creat Clear Calc 100.8 Estimated GFR > 60 Random Glucose 122 H (60-115) mg/dL Lactic Acid (0.5-2.0) mmol/L Calcium 8.5 D (8.4-10.2) mg/dL Magnesium 2.0 (1.6-2.6) mg/dL Total Bilirubin 0.4 (0.0-1.0) mg/dL Direct Bilirubin 0.2 (0.0-0.5) mg/dL AST 30 (5-37) U/L ALT 12 (0-40) U/L Alkaline Phosphatase 74 (39-117) U/L Total Creatine Kinase 658 H (38-174) U/L Troponin I High Sens 19.5 (<3.5-35.0) ng/L B-Natriuretic Peptide (<100) pg/mL Total Protein 7.8 (6.5-8.0) g/dL Albumin 3.1 L (3.5-5.0) g/dL Urine Color Urine Appearance Urine pH (5.0-8.0) Ur Specific [place] (1.005-1.025) Urine Protein (NEG-TRACE) MG/DL Urine Glucose (UA) (NEG) MG/DL Urine Ketones (NEG) MG/DL Urine Blood (NEG) Urine Nitrite (NEG) Ur Leukocyte Esterase (NEG) Urine RBC (0) /HPF Urine WBC (0-4) /HPF Ur Squamous Epith Cells /LPF Amorphous Sediment /LPF Urine Bacteria /LPF Hyaline Casts /LPF Granular Casts /LPF Urine Mucus /LPF Urine Opiates Screen (Not Detect) Urine Fentanyl Screen (Not Detect) Ur Barbiturates Screen (Not Detect) Ur Phencyclidine Scrn (Not Detect) Ur Amphetamines Screen (Not Detect) U Benzodiazepines Scrn (Not Detect) Urine Cocaine Screen (Not Detect) U Marijuana (THC) Screen (Not Detect) Ethyl Alcohol mg/dL COVID-19 (TYE) (Negative) COVID-19 Clin Com 07/11/21 07/11/21 07/11/21 Range/Units 14:42 14:42 14:42 WBC (4.8-10.8) X10*3/uL RBC (4.60-5.80) X10*6/uL Hgb (14.0-18.0) g/dl Hct (42.0-52.0) % MCV (80.0-98.0) fL MCH (27.0-33.0) pg MCHC (31.0-36.0) g/dl RDW (11.0-16.0) % Plt Count (160-400) X10*3/uL MPV (9.4-12.4) fL Immature Gran % (Auto) (0.0-0.4) % Neut % (Auto) (45-73) % Lymph % (Auto) (20-40) % [place] % (Auto) (2-11) % Eos % (Auto) (0-4) % Baso % (Auto) (0-2) % Lymph # (Auto) (1.2-4.9) X10*3/uL [place] # (Auto) (0.1-1.2) X10*3/uL Eos # (Auto) (0.0-0.4) X10*3/uL Baso # (Auto) (0.0-0.2) X10*3/uL Abs Immat Gran (auto) (0.00-0.03) X10*3/uL Absolute Neuts (auto) (2.0-8.3) x10*3/uL Absolute Nucleated RBC (0.0-0.012) X10*3/uL Nucleated RBC % (auto) (0.0-0.2) /100WBC Sodium (135-145) mmol/L Potassium (3.3-5.1) mmol/L Chloride (96-108) mmol/L Carbon Dioxide (22-29) mmol/L Anion Gap (12-20) BUN (9-16) mg/dL Creatinine (0.5-1.4) mg/dL Estim Creat Clear Calc Estimated GFR Random Glucose (60-115) mg/dL Lactic Acid 1.3 (0.5-2.0) mmol/L Calcium (8.4-10.2) mg/dL Magnesium (1.6-2.6) mg/dL Total Bilirubin (0.0-1.0) mg/dL Direct Bilirubin (0.0-0.5) mg/dL AST (5-37) U/L ALT (0-40) U/L Alkaline Phosphatase (39-117) U/L Total Creatine Kinase (38-174) U/L Troponin I High Sens (<3.5-35.0) ng/L B-Natriuretic Peptide (<100) pg/mL Total Protein (6.5-8.0) g/dL Albumin (3.5-5.0) g/dL Urine Color Urine Appearance Urine pH (5.0-8.0) Ur Specific [place] (1.005-1.025) Urine Protein (NEG-TRACE) MG/DL Urine Glucose (UA) (NEG) MG/DL Urine Ketones (NEG) MG/DL Urine Blood (NEG) Urine Nitrite (NEG) Ur Leukocyte Esterase (NEG) Urine RBC (0) /HPF Urine WBC (0-4) /HPF Ur Squamous Epith Cells /LPF Amorphous Sediment /LPF Urine Bacteria /LPF Hyaline Casts /LPF Granular Casts /LPF Urine Mucus /LPF Urine Opiates Screen (Not Detect) Urine Fentanyl Screen (Not Detect) Ur Barbiturates Screen (Not Detect) Ur Phencyclidine Scrn (Not Detect) Ur Amphetamines Screen (Not Detect) U Benzodiazepines Scrn (Not Detect) Urine Cocaine Screen (Not Detect) U Marijuana (THC) Screen (Not Detect) Ethyl Alcohol < 10 mg/dL COVID-19 (TYE) Negative (Negative) COVID-19 Clin Com See Note 07/11/21 07/11/21 07/11/21 Range/Units 14:42 17:22 17:22 WBC (4.8-10.8) X10*3/uL RBC (4.60-5.80) X10*6/uL Hgb (14.0-18.0) g/dl Hct (42.0-52.0) % MCV (80.0-98.0) fL MCH (27.0-33.0) pg MCHC (31.0-36.0) g/dl RDW (11.0-16.0) % Plt Count (160-400) X10*3/uL MPV (9.4-12.4) fL Immature Gran % (0.0-0.4) % (Auto) Neut % (Auto) (45-73) % Lymph % (Auto) (20-40) % [place] % (Auto) (2-11) % Eos % (Auto) (0-4) % Baso % (Auto) (0-2) % Lymph # (Auto) (1.2-4.9) X10*3/uL [place] # (Auto) (0.1-1.2) X10*3/uL Eos # (Auto) (0.0-0.4) X10*3/uL Baso # (Auto) (0.0-0.2) X10*3/uL Abs Immat Gran (0.00-0.03) (auto) X10*3/uL Absolute Neuts (2.0-8.3) x10*3/uL (auto) Absolute Nucleated (0.0-0.012) RBC X10*3/uL Nucleated RBC % (0.0-0.2) /100WBC (auto) Sodium (135-145) mmol/L Potassium (3.3-5.1) mmol/L Chloride (96-108) mmol/L Carbon Dioxide (22-29) mmol/L Anion Gap (12-20) BUN (9-16) mg/dL Creatinine (0.5-1.4) mg/dL Estim Creat Clear Calc Estimated GFR Random Glucose (60-115) mg/dL Lactic Acid (0.5-2.0) mmol/L Calcium (8.4-10.2) mg/dL Magnesium (1.6-2.6) mg/dL Total Bilirubin (0.0-1.0) mg/dL Direct Bilirubin (0.0-0.5) mg/dL AST (5-37) U/L ALT (0-40) U/L Alkaline Phosphatase (39-117) U/L Total Creatine (38-174) U/L Kinase Troponin I High Sens (<3.5-35.0) ng/L B-Natriuretic 59 (<100) pg/mL Peptide Total Protein (6.5-8.0) g/dL Albumin (3.5-5.0) g/dL Urine Color YELLOW Urine Appearance HAZY Urine pH 5.5 (5.0-8.0) Ur Specific [place] >= 1.030 H (1.005-1.025) Urine Protein 1+ H (NEG-TRACE) MG/DL Urine Glucose (UA) NEG (NEG) MG/DL Urine Ketones 5 (NEG) MG/DL Urine Blood NEG (NEG) Urine Nitrite NEG (NEG) Ur Leukocyte NEG (NEG) Esterase Urine RBC 0 (0) /HPF Urine WBC 1-4 (0-4) /HPF Ur Squamous Epith TRACE /LPF Cells Amorphous Sediment 1+ /LPF Urine Bacteria NONE /LPF Hyaline Casts 5-9 /LPF Granular Casts 1-4 /LPF Urine Mucus 3+ /LPF Urine Opiates Screen Not Detected (Not Detect) Urine Fentanyl Not Detected (Not Detect) Screen Ur Barbiturates POSITIVE H (Not Detect) Screen Ur Phencyclidine Not Detected (Not Detect) Scrn Ur Amphetamines Not Detected (Not Detect) Screen U Benzodiazepines Not Detected (Not Detect) Scrn Urine Cocaine Screen Not Detected (Not Detect) U Marijuana (THC) Not Detected (Not Detect) Screen Ethyl Alcohol mg/dL COVID-19 (TYE) (Negative) COVID-19 Clin Com 07/11/21 Range/Units 17:34 WBC (4.8-10.8) X10*3/uL RBC (4.60-5.80) X10*6/uL Hgb (14.0-18.0) g/dl Hct (42.0-52.0) % MCV (80.0-98.0) fL MCH (27.0-33.0) pg MCHC (31.0-36.0) g/dl RDW (11.0-16.0) % Plt Count (160-400) X10*3/uL MPV (9.4-12.4) fL Immature Gran % (Auto) (0.0-0.4) % Neut % (Auto) (45-73) % Lymph % (Auto) (20-40) % [place] % (Auto) (2-11) % Eos % (Auto) (0-4) % Baso % (Auto) (0-2) % Lymph # (Auto) (1.2-4.9) X10*3/uL [place] # (Auto) (0.1-1.2) X10*3/uL Eos # (Auto) (0.0-0.4) X10*3/uL Baso # (Auto) (0.0-0.2) X10*3/uL Abs Immat Gran (auto) (0.00-0.03) X10*3/uL Absolute Neuts (auto) (2.0-8.3) x10*3/uL Absolute Nucleated RBC (0.0-0.012) X10*3/uL Nucleated RBC % (auto) (0.0-0.2) /100WBC Sodium (135-145) mmol/L Potassium (3.3-5.1) mmol/L Chloride (96-108) mmol/L Carbon Dioxide (22-29) mmol/L Anion Gap (12-20) BUN (9-16) mg/dL Creatinine (0.5-1.4) mg/dL Estim Creat Clear Calc Estimated GFR Random Glucose (60-115) mg/dL Lactic Acid (0.5-2.0) mmol/L Calcium (8.4-10.2) mg/dL Magnesium (1.6-2.6) mg/dL Total Bilirubin (0.0-1.0) mg/dL Direct Bilirubin (0.0-0.5) mg/dL AST (5-37) U/L ALT (0-40) U/L Alkaline Phosphatase (39-117) U/L Total Creatine Kinase (38-174) U/L Troponin I High Sens 20.8 (<3.5-35.0) ng/L B-Natriuretic Peptide (<100) pg/mL Total Protein (6.5-8.0) g/dL Albumin (3.5-5.0) g/dL Urine Color Urine Appearance Urine pH (5.0-8.0) Ur Specific [place] (1.005-1.025) Urine Protein (NEG-TRACE) MG/DL Urine Glucose (UA) (NEG) MG/DL Urine Ketones (NEG) MG/DL Urine Blood (NEG) Urine Nitrite (NEG) Ur Leukocyte Esterase (NEG) Urine RBC (0) /HPF Urine WBC (0-4) /HPF Ur Squamous Epith Cells /LPF Amorphous Sediment /LPF Urine Bacteria /LPF Hyaline Casts /LPF Granular Casts /LPF Urine Mucus /LPF Urine Opiates Screen (Not Detect) Urine Fentanyl Screen (Not Detect) Ur Barbiturates Screen (Not Detect) Ur Phencyclidine Scrn (Not Detect) Ur Amphetamines Screen (Not Detect) U Benzodiazepines Scrn (Not Detect) Urine Cocaine Screen (Not Detect) U Marijuana (THC) Screen (Not Detect) Ethyl Alcohol mg/dL COVID-19 (TYE) (Negative) COVID-19 Clin Com Discharge Plan Discharge Clinical Impression: Frostbite of both feet, Hypothermia Patient Disposition: Still a Patient Instructions: Frostbite (ED), Acute Hypothermia (ED) Additional Instructions: Make sure to stay warm and dry. Seek out a homeless penitentiary if you have no place to stay. Prescriptions: No Action (DME) walker Misc See Rx Instructions .Route Qty: 1 RF: 0
--- NOTE | 2021-07-11 19:36 | PC.NURSE ---
patient a&ox3, satellite project site monitor intact, vss, pt c/o bilateral foot pain, pts clothes are currently being washed, pt is wishing to go to a rehab facility to regain strength, provider is aware, case mgmt order placed.
[2021-07-11] MEDS: LORazepam 1 MG TABLET PO (21:05)
[2021-07-11] MEDS: 0.9 % Sodium Chloride 1,000 ML 999 ML IV (21:06)
[2021-07-11 21:07] VITALS: BP 106/64; PULSE 111; RESP 17; TEMP 36.8; O2SAT 96
[2021-07-12] VITALS (8 sets, daily range): BP systolic 103–119; BP diastolic 55–80; PULSE 93–105; RESP 16–22; TEMP 36.4–36.9; O2SAT 94–98
--- NOTE | 2021-07-12 08:59 | PC.NURSE ---
pt resting in bed, tolerating po, changed repositioned lines change. waiting on casemanagement for rehab placement
--- NOTE | 2021-07-12 09:18 | MHC.CM.ED ---
Received cast management consult from ER. Patient was [place] [facility] [place] Patient returned to ER on 07/11. Physical therapy eval is pending but anticipate short term rehab will be needed. Also anticipate patient will be difficult to place due to not receiving any Covid vaccines. Referral broadcasted in [employer] to all facilities within 50 miles that are contracted with [facility]. Continue to monitor for d/c needs.
[2021-07-13 00:42] VITALS: BP 108/65; PULSE 60; RESP 14; TEMP 36.6; O2SAT 96
[2021-07-13 04:36] VITALS: BP 133/81; PULSE 98; RESP 20; O2SAT 99
[2021-07-13 06:10] VITALS: BP 116/75; PULSE 92; RESP 20; TEMP 36.6; O2SAT 94
--- NOTE | 2021-07-13 08:23 | PC.NURSE ---
pt awake and eating breakfast, he offers no complaints. awaiting cm update
--- NOTE | 2021-07-13 08:53 | MHC.CM.ED ---
Addendum entered by April Shrestha 07/13/21 12:41: 254 Referrals now broadcasted in [employer]. Original Note: Patient remains in ER. 85 referrals have been made. No bed offers yet. Patient will be difficult to place due to not being vaccinated. Continue to monitor for d/c needs.
[2021-07-13 14:58] VITALS: BP 125/80; PULSE 104; RESP 20; TEMP 36.8; O2SAT 96
--- NOTE | 2021-07-13 18:03 | PC.NURSE ---
pt alert, vss, denies pain. pt ringing multiple times to ask for sandwiches and mateo jaja. No complaints, he remains Case Management.
[2021-07-13 19:39] VITALS: BP 133/90; PULSE 92; RESP 18; TEMP 36.8; O2SAT 97
[2021-07-13 22:00] VITALS: RESP 16
[2021-07-14 01:26] VITALS: BP 125/79; PULSE 82; RESP 16; TEMP 37.4; O2SAT 96
[2021-07-14 06:15] VITALS: BP 122/76; PULSE 74; RESP 16; TEMP 36.9; O2SAT 96
--- NOTE | 2021-07-14 09:39 | PC.NURSE ---
Pt received from lining caser: AOX4 and offers no complaints. Heart sounds normal and lungs clear. Pt abd soft and non-tender. Pt able to ambulate, but is slightly unsteady.
--- NOTE | 2021-07-14 14:14 | MHC.CM.ED ---
Patient remains in ER. 254 referrals have been. No bed offers made yet. Patient will be difficult to place due to not being Covid vaccinated. Continue to monitor for d/c needs.
[2021-07-14 16:08] VITALS: BP 121/77; PULSE 93; RESP 17; TEMP 36.6; O2SAT 98
[2021-07-14 22:00] VITALS: RESP 20
[2021-07-15 04:00] VITALS: BP 120/77; PULSE 93; RESP 16; TEMP 36.4; O2SAT 93
[2021-07-15 06:00] VITALS: RESP 20
[2021-07-15 08:11] VITALS: BP 131/84; PULSE 80; RESP 15; TEMP 36.8; O2SAT 99
--- NOTE | 2021-07-15 10:18 | MHC.CM.ED ---
Patient remains in ER overflow. Still needs short term rehab. No bed offers made yet. 254 referrals placed. Will continue to reach out to facilities that have not responded in [employer]. Henna Alfaro aware and will escalate case with [facility]. Continue to monitor for d/c needs.
--- NOTE | 2021-07-15 11:37 | PC.NURSE ---
pt alert and oriented, vss, denies pain. pt given breakfast and supplies for ADLs. pt remains Case Management. will continue to monitor.
--- NOTE | 2021-07-15 19:55 | PC.NURSE ---
Assumed care of pt Pt resting on stretcher, watching TV and asking for hot coffee. NAD Will continue to monitor
[2021-07-15 20:31] VITALS: BP 140/85; PULSE 74; RESP 16; TEMP 36.9; O2SAT 99
[2021-07-16 06:29] VITALS: BP 120/89; PULSE 92; RESP 18; TEMP 36.6; O2SAT 96
--- NOTE | 2021-07-16 09:36 | PC.NURSE ---
Pt received from chestnut tanner: Pt AOX4 and offers no complaints at this time. Heart sounds normal and lungs clear. Pt abd soft and non-tender. Pt self ambulatory with steady gait. Pending case mangement for placement. Pt is unvaccinate but test COVID-19 negative for his stay at this facility.
[2021-07-16 10:24] VITALS: BP 120/89; PULSE 92; O2SAT 96
--- NOTE | 2021-07-16 11:49 | MHC.CM.ED ---
Patient remains in ER. Physical therapy evaluated patient again and continue to recommend STR. 254 SNF referrals made. No bed offers made. Referrals broadcasted to acute rehab as well. Continue to monitor for d/c needs.
[2021-07-16 14:07] VITALS: BP 135/88; PULSE 105; RESP 18; O2SAT 98
--- NOTE | 2021-07-16 19:30 | PC.NURSE ---
Assumed care of pt Pt resting on stretcher NAD Awaiting rehab bed placement Will continue to monitor
[2021-07-16 21:11] VITALS: BP 129/84; PULSE 98; RESP 18; TEMP 36.9; O2SAT 98
[2021-07-17 00:16] VITALS: BP 120/87; PULSE 98; RESP 18; O2SAT 98
[2021-07-17 06:37] VITALS: BP 132/86; PULSE 97; RESP 18; O2SAT 96
--- NOTE | 2021-07-17 19:58 | PC.NURSE ---
Assumed care of pt at 1900. Pt sleeping and in NAD, even and non-labored respirations. Awaiting placement via CM team
[2021-07-17 21:04] VITALS: BP 128/82; PULSE 102; RESP 16; TEMP 35.7; O2SAT 96
--- NOTE | 2021-07-18 05:41 | PC.NURSE ---
Pt noted to have empty container of non-hospital salad dressing in trash can, upon further investigation it was deduced that pt had stolen a staff member's salad from the staff refrigerator. Pt additionally had entire containers of condiments and sugars and a hidden coffee cup that also appears to likely belong to a staff member. Pt educated that this is not appropriate behavior and that if he needs additional food he must request patient-designated food. Pt made purposeful eye contact but did not acknowledge this comment.
[2021-07-18 14:24] VITALS: BP 135/91; PULSE 106; RESP 17; TEMP 36.5; O2SAT 99
[2021-07-18 18:51] VITALS: BP 117/77; PULSE 90; RESP 18; TEMP 36.4; O2SAT 96
--- NOTE | 2021-07-18 21:48 | PC.NURSE ---
This nurse took over patient's care at 1900. Patient is alert, oriented to self, place, vague on time and situation. Patient denies any pain or discomfort at this time, vss, resting comfortably, call souza within reach.
[2021-07-19 06:19] VITALS: BP 121/78; PULSE 84; RESP 16; O2SAT 97
--- NOTE | 2021-07-19 08:50 | MHC.CM.ED ---
Patient remains in ER overflow. Physical therapy continues to recommend STR. Placement has been difficult due to patient not being Covid vaccinated. Henna Alfaro aware and has escalated with [facility]. 254 referrals have been made without a bed offer. Will continue to reach out to any facility that hasn't responded in Allscripts. Continue to monitor for d/c needs.
[2021-07-20 08:00] VITALS: BP 124/74; PULSE 74; RESP 18; TEMP 36.2; O2SAT 95
--- NOTE | 2021-07-20 08:22 | PC.NURSE ---
Pt received from night ahift: Pt remains at baseline- AOX4 and offers no complaints. Heart sounds normal and lungs clear. Pt abd soft and non-tender. Pt still pending case management for placement. Bed alarm placed on pt, as pt frequently tries to wander and get into staff breakroom.
--- NOTE | 2021-07-20 10:47 | MHC.CM.ED ---
Patient remains in ER overflow. Still looking for STR placement. Per BETH Solis, patient is agreeable to getting 1st Covid vaccine. Vianey from Pharmacy aware and is attempting to arrange. Necessary paperwork completed and signed by patient. Faxed to pharmacy. Continue to monitor for d/c needs.
[2021-07-20 18:23] VITALS: BP 108/74; PULSE 87; RESP 16; O2SAT 96
--- NOTE | 2021-07-21 07:39 | PC.NURSE ---
Pt received from mold shifter: Pt AOX4 and offers no complaints. Heart sounds normal and lungs clear. Pt able to self ambulate to BR indepantly with slight unsteady gait. Pt still pending case management and placement. Pt did receive his first covid vaccine yesterday.
[2021-07-21 11:25] VITALS: BP 139/99; PULSE 91; RESP 19; TEMP 36.4; O2SAT 97
--- NOTE | 2021-07-21 15:09 | MHC.CM.ED ---
Patient remains in ER. Still no bed offers made. Patient received 1st Pfizer vaccine on 07/20.
[2021-07-21 16:38] VITALS: BP 131/84; PULSE 84; RESP 16; TEMP 36.9; O2SAT 99
--- NOTE | 2021-07-21 21:50 | PC.NURSE ---
This RN took over patient's care at 1900, patient alert and orientedx3. Denies any pain or discomfort at this time. Vitals stable, lungs diminished, resting in bed watching tv at this time.
--- NOTE | 2021-07-21 23:21 | PC.NURSE ---
Assumed care of pt at 2300. Pt sleeping, even and non-labored resps. Plan unchanged, pending placement per CM
[2021-07-22 06:27] VITALS: BP 135/90; PULSE 80; RESP 16; TEMP 36.9; O2SAT 99
--- NOTE | 2021-07-22 07:59 | PC.NURSE ---
Pt received from scene shifter: Pt AOX$ and offers no complaints. Heart sounds normal and lungs clear. Pt able to ambulate to with walker. Still pending case management placement. Pt received first covid vaccine 2 days ago.
[2021-07-22 09:01] VITALS: BP 111/87; PULSE 109; RESP 15; TEMP 36.5; O2SAT 97
--- NOTE | 2021-07-22 10:44 | MHC.CM.ED ---
Patient remains in ER. 254 referrals placed. No bed offers made yet. Will continue to reach out to facilities that have not responded in Allscripts. Continue to monitor for d/c needs.
[2021-07-22 12:28] VITALS: BP 116/78; PULSE 82; RESP 15; TEMP 36.3; O2SAT 97
[2021-07-22 14:57] VITALS: BP 128/93; PULSE 99; RESP 15; TEMP 36.8; O2SAT 97
[2021-07-22 20:26] VITALS: BP 147/77; PULSE 86; RESP 18; TEMP 36.9; O2SAT 99
[2021-07-23 01:12] VITALS: BP 129/84; PULSE 89; RESP 16; TEMP 36.4; O2SAT 98
[2021-07-23 19:35] VITALS: BP 131/79; PULSE 92; RESP 16; O2SAT 98
--- NOTE | 2021-07-24 07:31 | PC.NURSE ---
Report recd from Lorena RN, Pt sleeping at this time. No signs of distress noted. Awaiting placement, uses walker to BR independently. Call souza within reach, will continue to monitor.
[2021-07-24 13:43] VITALS: BP 131/88; PULSE 95; RESP 15; TEMP 36.6; O2SAT 98
--- NOTE | 2021-07-24 19:30 | PC.NURSE ---
Assumed care of pt Pt resting on stretcher watching TV NAD Awaiting bed placement Will continue to monitor
[2021-07-24 21:01] VITALS: BP 140/92; PULSE 82; RESP 16; TEMP 36.5; O2SAT 98
--- NOTE | 2021-07-25 00:24 | PC.NURSE ---
Pt ambulated to bathroom with walker Pt tolerating well Pt back on stretcher NAD Will continue to monitor
[2021-07-25 02:00] VITALS: BP 145/97; PULSE 84; RESP 16; TEMP 36.4
--- NOTE | 2021-07-25 13:19 | PC.NURSE ---
pt sleeping on and off. breakfast and lunch given. no complaints.
[2021-07-25 15:03] VITALS: BP 138/85; PULSE 83; RESP 16; TEMP 37; O2SAT 97
--- NOTE | 2021-07-25 18:28 | PC.NURSE ---
pt sleeping on and off, up to use restroom with walker. no complaints
[2021-07-26 01:55] VITALS: BP 119/84; PULSE 87; RESP 16; TEMP 37.6; O2SAT 98
[2021-07-26 06:16] VITALS: BP 120/79; PULSE 87; RESP 17; TEMP 37.2; O2SAT 97
--- NOTE | 2021-07-26 07:45 | PC.NURSE ---
Pt A&OX4, ambulatory independently with use of walker. No complaints of pain at this time, LCA, awaiting CM placement at this time. Call souza within reach, will continue to monitor.
[2021-07-26 11:00] VITALS: BP 114/75; PULSE 56; RESP 18; TEMP 36.8; O2SAT 96
--- NOTE | 2021-07-26 12:01 | MHC.CM.ED ---
Addendum entered by April Shrestha 07/26/21 12:35: [employer] Manager met with patient in regards to discharge planning. Patient is interested in custodial ETOH abuse help. Keo aware and will meet with patient. Original Note: Patient remains in ER. Physical therapy saw patient and feels he's at his baseline and can be discharged. Patient is homeless. T/W is in the process of reaching out to local homeless shelters. Continue to monitor for d/c needs.
--- NOTE | 2021-07-26 13:09 | MHC.RECOVSUP ---
Recovery Support note: Patient is a 51 year old Kenyan speaking male who presented to [facility] ED on 07/11/21 after falling on ice. Patient was medically cleared and referred to physical therapy. Physical therapy reported patient would benefit from [id number]. Case management referred to rehab facilities over the past two weeks however no bed offers were made. Patient was re-evaluated by physical therapy on 07/26 and it was determined that patient had returned to his baseline level of mobility and that he no longer needs physical therapy. This field underwriter met with patient to discuss recovery treatment options. Patient reports his last drink was approximately one month ago and that he was previously drinking 6 beers a day. Patient reports a desire to continue with his recovery and maintain sobriety. Patient is interested in going to any type of program that can support his recovery. Patient reports he has been experiencing homelessness for the past two years and that he has mostly stayed with friends. Patient reports no history of mental health treatment or diagnoses. Patient denies current SI/HI/AH/VH. Patient is not on any medications and is independent in his ADLs. This field underwriter will refer patient to recovery support programs including CSS and T[facility].
[2021-07-26 14:18] VITALS: BP 148/75; PULSE 98; RESP 18; TEMP 36.6; O2SAT 97
--- NOTE | 2021-07-26 15:25 | MHC.RECOVSUP ---
Recovery Support note: Patient has been referred to [facility] and [facility]. Recovery Support Team awaits follow up from these facilities.
[2021-07-26 22:06] VITALS: BP 123/80; PULSE 93; RESP 12; TEMP 36.7; O2SAT 98
--- NOTE | 2021-07-27 08:15 | MHC.RECOVRN ---
Spoke with Ashleigh at [facility] admissions, reports there is a bed available and will return my call at 0900 to confirm.
[2021-07-27 10:47] LABS: COVID-19 Test Negative (Negative); IDNOW Serial# 55D5AD1C
--- NOTE | 2021-07-27 11:57 | MHC.CM.ED ---
Per Bette, recovery nurse, patient can discharge to [facility] in [place]. Lyft ordered and should be here around 1210pm. Patient, Ruth Ann SCHMIDT and Nicho CAMPOS aware. Patient will need to be at the main entrance of the hospital. Continue to monitor for d/c needs.
--- NOTE | 2021-07-27 12:13 | PC.NURSE ---
Pt A&Ox4, no complaints of pain. Awaiting dispo at this time. Ambulates independently. Will continue to monitor.
--- NOTE | 2021-07-27 13:27 | MHC.RECOVRN ---
Pt transported via Lyft to [facility].
== END 2021-07-27 14:08 | disposition home or self-care (01) ==
PROVIDERS: Emergency Medicine; Physician Assistant; Emergency Provider Emergency Medicine
DX: S09.90XA Unspecified injury of head, initial encounter (principal); G44.309 Post-traumatic headache, unspecified, not intractable; T33.821A Superficial frostbite of right foot, initial encounter; T33.822A Superficial frostbite of left foot, initial encounter; T68.XXXA Hypothermia, initial encounter; R06.02 Shortness of breath; M54.2 Cervicalgia; X31.XXXA Exposure to excessive natural cold, initial encounter; Y93.9 Activity, unspecified; Y92.9 Unspecified place or not applicable; Y99.9 Unspecified external cause status; Z20.822 Contact with and (suspected) exposure to COVID-19; Z79.899 Other long term (current) drug therapy; W00.0XXA Fall on same level due to ice and snow, initial encounter
CPT/HCPCS: 36415; 70450; 72125; 80048; 80076; 80307; 81001; 82077; 82550; 83605; 83735; 83880; 84484; 85025; 87635; 93005; 97116; 97162; 99285

== ENCOUNTER 2021-09-17 17:12 | Emergency (ER) | payer MEDICAID, SELFPAY ==
--- NOTE | ~2021-09-17 | XR_ITS ---
EXAMINATION: XR BILATERAL HIPS WITH AP PELVIS CLINICAL INFORMATION: Fall, pelvis pain COMPARISON: None TECHNIQUE: AP view of the pelvis and single views of each hip were obtained. FINDINGS: No acute fracture or dislocation. Chronic flattening/dysplasia of the bilateral femoral heads. Dystrophic calcification in the soft tissues adjacent to the left hip. XR/XR hips MADHURI min 3V IMPRESSION: No acute traumatic findings.
--- NOTE | ~2021-09-17 | XR_ITS ---
EXAMINATION: XR LUMBOSACRAL SPINE CLINICAL INFORMATION: Fall, alcohol COMPARISON: CT abdomen pelvis on 11/01/2020 TECHNIQUE: Three views of the lumbosacral spine. FINDINGS: Chronic L1 compression fracture. The remainder of the lumbar vertebral body heights are maintained. There is 1.7 cm anterolisthesis at L5-S1 with severe degenerative disc disease. The remainder of the disc spaces are maintained. There are bridging osteophytes throughout the lumbar spine. XR/XR lumbar spine 2-3V IMPRESSION: Degenerative disease of the lumbar spine. No acute traumatic findings.
[2021-09-17 17:22] VITALS: BP 127/95; PULSE 68; RESP 14; TEMP 37.1; O2SAT 98; BMI 25.2
--- NOTE | 2021-09-17 17:26 | ED.ALCOHOL ---
HPI - Alcohol General Chief Complaint: ETOH/Substance Use Stated Complaint: etoh Source: patient Mode of arrival: ambulatory Limitations: no limitations History of Present Illness HPI narrative: 51-year-old male presents via EMS for alcohol intoxication. States he had several beers and some vodka. Was discharged from detox 2 days ago. MD complaint: alcohol intoxication and alcohol dependence Last drink: Just prior to admission Chronic alcohol use: Yes Previous visits for alcohol intoxication: Yes Recent trauma: No Associated symptoms: denies other symptoms Treatments prior to arrival: none Related Data Previous Rx's Medication Instructions Recorded walker #1 ea 07/05/21 Allergies Allergy/AdvReac Type Severity Reaction Status Date / Time clams Allergy Severe HIVES, Verified 07/11/21 11:12 DIFFICULTY BREATHING Review of Systems Review of Systems: Constitutional: No Fever, No Chills ENT/Mouth: No sore throat, No Rhinorrhea Eyes: No Eye Pain, No Swelling, No Redness Cardiovascular: No Chest Pain, No SOB Respiratory: No Cough, No Sputum Gastrointestinal: No Nausea, No Vomiting, No Diarrhea, No abdominal Pain Genitourinary: No Dysuria, No Hematuria Musculoskeletal: No joint pain, No Myalgias, No Joint Swelling Skin: No Skin Lesions, No rash Neuro: No Weakness, No Numbness, No Loss of Consciousness, No Dizziness, No Headache Psych: N acute alcohol intoxication, Anxiety, No Depression, No SI/HI/AH/VH Heme/Lymph: No Bruising, No Bleeding,No Lymphadenopathy Endocrine: No Polyuria, No Polydipsia Yes all other systems are reviewed and are negative [facility] Past Medical History Attestation statement: The following information was validated with the patient. Source: old records reviewed Medical History ETOH abuse High cholesterol HTN (hypertension) Social History Social History Alcohol intake: current Alcohol intake frequency: 3 or more drinks per day Alcohol type: beer and hard liquor Patient Tobacco Use Status: Former Tobacco user Smoked in Last 30 Days: No Advance Directives: No Advance Directives Information Provided: No service: No Current occupational status: unemployed Physical Exam ED Vital Signs: Vital Signs - 24 hr 09/17/21 17:22 09/17/21 18:29 09/17/21 20:00 Temperature 98.7 F 97.7 F 97.7 F Pulse Rate 68 78 78 Respiratory Rate 14 20 20 Blood Pressure 127/95 H 109/76 109/76 Pulse Oximetry 98 94 94 09/17/21 22:00 Temperature Pulse Rate Respiratory Rate 15 Blood Pressure Pulse Oximetry BMI result Body Mass Index 25.2 Appearance: Alert. Oriented X3. Intoxicated. Eyes: Pupils equal, round and reactive to light. No nystagmus. ENT: Pharynx normal. Neck: Normal inspection. Neck supple. CVS: Normal heart rate and rhythm. Pulses normal. Respiratory: No respiratory distress. Breath sounds normal. Abdomen: Soft and nontender. Skin: Skin warm and dry. Normal skin color. Normal skin turgor. Extremities: No lower extremity edema. Moves all extremities against resistance. Neuro: No motor deficit. No sensory deficit. Cranial nerves 2-12 intact. Course Course Course Narrative: 51-year-old male presents via EMS for alcohol intoxication. [facility] detox 2 days ago, started drinking just after discharge. Patient does not report any physical complaints at this time. Is requesting to go back to detox. 18:16 resource recovery specialist unable to obtain bed at [facility] at this time. Will place patient on the list for this facility for the morning. MDM - Alcohol Differential Diagnosis Differential diagnosis: Likely alcohol dependence and alcohol intoxication Medical Records Attestation: I reviewed the patient's medical records. Lab Data Attestation: I reviewed the patient's lab results. Labs: Lab Results 09/17/21 09/17/21 09/17/21 Range/Units 18:48 18:48 18:48 Urine Color YELLOW Urine Appearance CLEAR Urine pH 6.0 (5.0-8.0) Ur Specific [place] <= 1.005 (1.005-1.025) Urine Protein NEG (NEG-TRACE) MG/DL Urine Glucose (UA) NEG (NEG) MG/DL Urine Ketones NEG (NEG) MG/DL Urine Blood NEG (NEG) Urine Nitrite NEG (NEG) Ur Leukocyte Esterase NEG (NEG) Urine Opiates Screen Not Detected (Not Detect) Urine Fentanyl Screen Not Detected (Not Detect) Ur Barbiturates Screen Not Detected (Not Detect) Ur Phencyclidine Scrn Not Detected (Not Detect) Ur Amphetamines Screen Not Detected (Not Detect) U Benzodiazepines Scrn Not Detected (Not Detect) Urine Cocaine Screen Not Detected (Not Detect) U Marijuana (THC) Screen Not Detected (Not Detect) Ethyl Alcohol 201 mg/dL COVID-19 (TYE) (Negative) COVID-19 [employer] 09/17/21 Range/Units 22:29 Urine Color Urine Appearance Urine pH (5.0-8.0) Ur Specific [place] (1.005-1.025) Urine Protein (NEG-TRACE) MG/DL Urine Glucose (UA) (NEG) MG/DL Urine Ketones (NEG) MG/DL Urine Blood (NEG) Urine Nitrite (NEG) Ur Leukocyte Esterase (NEG) Urine Opiates Screen (Not Detect) Urine Fentanyl Screen (Not Detect) Ur Barbiturates Screen (Not Detect) Ur Phencyclidine Scrn (Not Detect) Ur Amphetamines Screen (Not Detect) U Benzodiazepines Scrn (Not Detect) Urine Cocaine Screen (Not Detect) U Marijuana (THC) Screen (Not Detect) Ethyl Alcohol mg/dL COVID-19 (TYE) Negative (Negative) COVID-19 Clin Com See Note Imaging Data Lumbar spine and hip x-ray: Attestation: I personally reviewed and interpreted this imaging study as follows: Radiologist's impression: EXAMINATION: XR LUMBOSACRAL SPINE CLINICAL INFORMATION: Fall, alcohol COMPARISON: CT abdomen pelvis on 11/01/2020 TECHNIQUE: Three views of the lumbosacral spine. FINDINGS: Chronic L1 compression fracture. The remainder of the lumbar vertebral body heights are maintained. There is 1.7 cm anterolisthesis at L5-S1 with severe degenerative disc disease. The remainder of the disc spaces are maintained. There are bridging osteophytes throughout the lumbar spine. XR/XR lumbar spine 2-3V IMPRESSION: Degenerative disease of the lumbar spine. No acute traumatic findings. EXAMINATION: XR BILATERAL HIPS WITH AP PELVIS CLINICAL INFORMATION: Fall, pelvis pain COMPARISON: None TECHNIQUE: AP view of the pelvis and single views of each hip were obtained. FINDINGS: No acute fracture or dislocation. Chronic flattening/dysplasia of the bilateral femoral heads. Dystrophic calcification in the soft tissues adjacent to the left hip. XR/XR hips MADHURI min 3V IMPRESSION: No acute traumatic findings. Discharge Plan Discharge Clinical Impression: Alcoholic intoxication Patient Disposition: Still a Patient Instructions: Abuse of Alcohol (DC) Additional Instructions: Please follow-up with detox. Thank you for choosing this emergency department for evaluation. Please follow-up with primary care physician as needed. Return to the emergency department for any new, concerning, or worsening symptoms. Prescriptions: No Action (DME) walker Misc See Rx Instructions .Route Qty: 1 0RF Rx Instructions: As directed
[2021-09-17 18:29] VITALS: BP 109/76; PULSE 78; RESP 20; TEMP 36.5; O2SAT 94
--- NOTE | 2021-09-17 18:48 | MHC.RECOVSUP ---
? Reason for consult Recovery support o Current location: ED22 o Identified substance use concern: alcohol - Withdrawal - Seeking ATS (detox) - Support ? Intervention: o ATS bed search started 6pm/[id number] o Community resources provided o Harm reduction discussion ? Plan: <del>o</del> <del>Referral</del> <del>to</del> <del>[facility]</del> <del>o</del> <del>Bed</del> <del>search</del> <del>in</del> <del>progress</del> <del>to</del> <del>o</del> <del>Follow</del> <del>up</del> <del>tomorrow</del> <del>o</del> <del>Patient</del> <del>awaiting</del> <del>crisis</del> <del>evaluation</del> o Patient to follow up with [facility] after discharge ? Additional information: Met with Sid.. Patient stated that he would only go to Detox in [place].. I called [facility] and they had a bed for tomorrow but after doing the intake i was told that he would have to wait for 7 Days...
[2021-09-17 18:57] LABS: Appearance Urine CLEAR; Color Urine YELLOW; Glucose Urine UA NEG (NEG); Leukocyte Esterase Urine NEG (NEG); Nitrite Urine NEG (NEG); Specific Gravity - Urine <= 1.005 (1.005-1.025); Urine Blood NEG (NEG); Urine Ketones NEG (NEG); Urine Protein NEG (NEG-TRACE)
[2021-09-17 19:10] LABS: Amphetamine Screen Urine Not Detected (Not Detect); Barbiturates, Urine Not Detected (Not Detect); Benzodiazepines Screen Urine Not Detected (Not Detect); Cannabinoid Screen Urine Not Detected (Not Detect); Cocaine Screen Urine Not Detected (Not Detect); Fentanyl, urine Not Detected (Not Detect); Opiate Screen Urine Not Detected (Not Detect); Phencyclidine Screen Urine Not Detected (Not Detect)
[2021-09-17 19:11] LABS: Ethanol 201 mg/dL
[2021-09-17 20:00] VITALS: BP 109/76; PULSE 78; RESP 20; TEMP 36.5; O2SAT 94
[2021-09-17 22:00] VITALS: RESP 15
[2021-09-17 23:01] LABS: COVID-19 Test Negative (Negative)
[2021-09-18 05:30] VITALS: BP 140/97; PULSE 95; RESP 16; TEMP 37.3; O2SAT 98
--- NOTE | 2021-09-18 06:13 | PC.NURSE ---
Patient slept thorough the night, no distress observed/reported, behavior pleasant and non concerning at this time, asymptomatic of withdrawal at this time, patient requested detox help only in [place], per Nilson patient can be readmitted only after 7 days due patient's previous incomplete treatment plan, patient is not crises patient therefore patient's cleared for the discharge, will continue to monitor.
--- NOTE | 2021-09-18 07:17 | PC.NURSE ---
patient appears to remain at rest at present respirations are even and unlabored patient appears in no distress
--- NOTE | 2021-09-18 08:28 | MHC.RECOVSUP ---
Recovery Support note: Discussed with patient that he will not be able to get into ATS as he recently discharged from an ATS program and that he will have to wait a couple days at least to be eligible. Patient acknowledged and is requesting discharge at this time. This fiction and nonfiction prose writer offered patient a Lyft to his friend's house and patient declined. Encouraged patient to call I[facility] in a few days to get back into treatment. Discussed case with RN and ED provider.
== END 2021-09-18 08:38 | disposition home or self-care (01) ==
PROVIDERS: Nurse Practitioner Family; Emergency Provider Emergency Medicine
DX: F10.220 Alcohol dependence with intoxication, uncomplicated (principal); Y90.8 Blood alcohol level of 240 mg/100 ml or more; I10 Essential (primary) hypertension; E78.5 Hyperlipidemia, unspecified; Z87.891 Personal history of nicotine dependence; Z20.822 Contact with and (suspected) exposure to COVID-19
CPT/HCPCS: 36415; 72100; 73522; 80307; 81003; 82077; 87635; 99285

== ENCOUNTER 2021-09-18 20:43 | Emergency (ER) | payer MEDICAID, SELFPAY ==
--- NOTE | 2021-09-18 20:50 | ED.ALCOHOL ---
HPI - Alcohol General Chief Complaint: Psychiatric Symptoms Stated Complaint: ETOH Source: patient and EMS Mode of arrival: EMS Limitations: no limitations History of Present Illness HPI narrative: 51-year-old male presents via EMS for alcohol intoxication. MD complaint: alcohol intoxication Last drink: Just prior to admission Chronic alcohol use: Yes Previous visits for alcohol intoxication: Yes Recent trauma: No Associated symptoms: denies other symptoms Treatments prior to arrival: none Related Data Previous Rx's Medication Instructions Recorded walker #1 ea 07/05/21 Allergies Allergy/AdvReac Type Severity Reaction Status Date / Time clams Allergy Severe HIVES, Verified 07/11/21 11:12 DIFFICULTY BREATHING Review of Systems Review of Systems: Constitutional: No Fever, No Chills ENT/Mouth: No sore throat, No Rhinorrhea Eyes: No Eye Pain, No Swelling, No Redness Cardiovascular: No Chest Pain, No SOB Respiratory: No Cough, No Sputum Gastrointestinal: No Nausea, No Vomiting, No Diarrhea, No abdominal Pain Genitourinary: No Dysuria, No Hematuria Musculoskeletal: No joint pain, No Myalgias, No Joint Swelling Skin: No Skin Lesions, No rash Neuro: No Weakness, No Numbness, No Loss of Consciousness, No Dizziness, No Headache Psych: Positive alcohol intoxication, No Anxiety, No Depression, No SI/HI/AH/VH Heme/Lymph: No Bruising, No Bleeding,No Lymphadenopathy Endocrine: No Polyuria, No Polydipsia Yes all other systems are reviewed and are negative [facility] Past Medical History Attestation statement: The following information was validated with the patient. Source: old records reviewed Medical History ETOH abuse High cholesterol HTN (hypertension) Social History Social History Alcohol intake: current Alcohol intake frequency: 3 or more drinks per day Alcohol type: beer and hard liquor Patient Tobacco Use Status: Former Tobacco user Advance Directives: No Advance Directives Information Provided: No service: No Current occupational status: unemployed Physical Exam ED Vital Signs: Vital Signs - 24 hr 09/18/21 21:01 Temperature 97.9 F Pulse Rate 89 Respiratory Rate 18 Blood Pressure 173/101 H Pulse Oximetry 97 BMI result Body Mass Index 25.8 Appearance: Alert. Oriented X3. No acute distress. Eyes: Pupils equal, round and reactive to light. ENT: Pharynx normal. Neck: Normal inspection. Neck supple. CVS: Normal heart rate and rhythm. Pulses normal. Respiratory: No respiratory distress. Breath sounds normal. Abdomen: Soft and nontender. Skin: Skin warm and dry. Normal skin color. Normal skin turgor. Extremities: No lower extremity edema. Moves all extremities against resistance. Neuro: No motor deficit. No sensory deficit. Cranial nerves 2-12 intact. Course Course Course Narrative: 51-year-old male presents via EMS for alcohol intoxication. They picked him up at a local grocery store after he was caught stealing sardines in [place]. Patient is obviously intoxicated, states to have drink only 2 beers today. This patient is well-known to this facility, has presented at least daily, sometimes twice a day over the past week. He was at [facility] approximately 3 days ago. He is requesting to go back to detox however he is only requesting to go to [facility]. [facility] will not accept him until he reaches a 7 day tawana. We tried to get him into a facility last night when he presented for similar circumstances, minus the shoplifting. 21:28. Will order EtOH. COVID. Discussion with asset recovery specialist, plan is to search for detox facilities in the morning. Physician observation started at this time. MDM - Alcohol Differential Diagnosis Differential diagnosis: Likely alcohol dependence and alcohol intoxication Medical Records Attestation: I reviewed the patient's medical records. Lab Data Attestation: I reviewed the patient's lab results. Discharge Plan Discharge Clinical Impression: Alcoholic intoxication Patient Disposition: Home, Self-Care Instructions: Abuse of Alcohol (DC) Additional Instructions: Please continue with detox. Thank you for choosing this emergency department for evaluation. Please follow-up with primary care physician as needed. Return to the emergency department for any new, concerning, or worsening symptoms. Prescriptions: No Action (DME) walker Misc See Rx Instructions .Route Qty: 1 0RF Rx Instructions: As directed
[2021-09-18 21:01] VITALS: BP 173/101; PULSE 89; RESP 18; TEMP 36.6; O2SAT 97; BMI 25.8
[2021-09-18 21:38] LABS: Ethanol 161 mg/dL
[2021-09-18 22:19] LABS: COVID-19 Test Negative (Negative)
--- NOTE | 2021-09-19 06:35 | PC.NURSE ---
Patient arrived after being picked up from supermarket, was found to be shoplifting a can of SPAM and sardines. Belongings inventoried and patient was cooperative with changeover. Patient completed lab tests and workup, BAL 161 at 2114. Patient was given multiple sandwiches seeing as he is homeless and reported that he hadn't eaten in a few days. Patient was calm, cooperative, slept throughout the night with even chest rise and fall, safe on checks, will continue to monitor.
[2021-09-19 06:37] VITALS: BP 148/99; PULSE 81; RESP 16; TEMP 36.8; O2SAT 96
--- NOTE | 2021-09-19 07:33 | PC.NURSE ---
patient appears to remain asleep at present, respirations are even and unlabored patient appears in no distress
== END 2021-09-19 09:38 | disposition home or self-care (01) ==
PROVIDERS: Nurse Practitioner Family; Emergency Provider Emergency Medicine
DX: F10.120 Alcohol abuse with intoxication, uncomplicated (principal); Y90.6 Blood alcohol level of 120-199 mg/100 ml; Z20.822 Contact with and (suspected) exposure to COVID-19; I10 Essential (primary) hypertension; E78.5 Hyperlipidemia, unspecified; Z87.891 Personal history of nicotine dependence
CPT/HCPCS: 36415; 82077; 87635; 99283

== ENCOUNTER 2021-09-28 12:35 | Emergency (ER) | payer MEDICAID, SELFPAY ==
[2021-09-28] VITALS (7 sets, daily range): BP systolic 105–128; BP diastolic 59–85; PULSE 78–112; RESP 15–19; TEMP 36.6–36.9; O2SAT 93–98; BMI 25.4
--- NOTE | ~2021-09-28 | XR_ITS ---
EXAMINATION: XR CHEST CLINICAL INFORMATION: Chest pain COMPARISON: CT chest 11/01/2020 TECHNIQUE: Frontal view of the chest was obtained. FINDINGS: The lungs are in moderate inspiration with patchy opacity and linear reticular changes seen throughout both lungs likely chronic scarring. There is consolidation in appearance in the left lower lobe retrocardiac area suspicious for underlying infiltrate. Heart size and pulmonary vascularity is normal. No gross bony abnormality seen. XR/XR chest 1V IMPRESSION: Suboptimally expanded lungs with chronic interstitial lung changes. There is consolidation like appearance in left lower lobe retrocardiac area suspicious for infiltrate or chronic scarring.. Chronic scarring was seen on the previous CT chest exam. Correlate with clinical exam
--- NOTE | ~2021-09-28 | CT_ITS ---
EXAMINATION: CT CHEST WITHOUT CONTRAST CLINICAL INFORMATION: Reason for Exam Abnormal chest x-ray COMPARISON: CT chest abdomen pelvis 09/15/2020 TECHNIQUE: Multidetector volumetric imaging was performed through the chest without IV contrast. Sagittal and coronal reformatted images were obtained on the technologist's workstation. This CT examination was performed using dose optimization techniques as appropriate, variously including the following: Automated exposure control. Adjustment of mA and/or kV according to patient size (this includes techniques or standardized protocols for targeted exams where dose is matched to indication/reason for exam; i.e. extremities or head). Use of iterative reconstruction technique. DLP: 231 mGy-cm FINDINGS: CHEST: Lung: Again seen are bilateral abnormal lungs with increased reticular nodular markings peripherally with some suggestion of honeycombing. Findings are suggestive of interstitial lung disease. A number of small focal nodular densities are seen which are unchanged. Calcified granulomas again seen. Some more confluent atelectasis/infiltrate present at the left lung base, corresponding to the abnormality seen on the chest radiograph today. Mediastinum: The heart is again noted to be enlarged. No aortic aneurysm is present. Multiple mediastinal lymph nodes are unchanged. Multiple smaller aortopulmonary window lymph nodes are present, and also unchanged. Pericardium/Pleura: No significant effusion. No pleural mass or thickening. Chest Wall/Axilla: Bilateral small axillary lymph nodes are again seen, but there is no adenopathy. Visualized abdomen: Unremarkable CT/CT chest wo con IMPRESSION: Chronic changes in the lungs unchanged and consistent with interstitial lung disease. No acute consolidation is seen. Findings at the left lung base are unchanged. Stable small pulmonary nodules Cardiomegaly with prominent mediastinal lymph nodes.
--- NOTE | 2021-09-28 12:50 | ECG_ITS ---
Test Reason : CHEST PAIN Blood Pressure : / mmHG Vent. 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
--- NOTE | 2021-09-28 12:51 | ED_ITS ---
HPI - General Adult General Chief complaint: Chest Pain Stated complaint: CP S/P DRINKING ALCOHOL PER EMS Time Seen by Provider: 09/28/21 12:50 Source: patient and EMS Mode of arrival: EMS Limitations: no limitations History of Present Illness HPI narrative: 51-year-old male who was homeless with history of alcohol abuse came in for evaluation of chest pain. Patient is complaining of mid chest pain for the last 2 days, pain is on and off worsening with exertion an old with other. No radiation of the pain, described as moderate in severity /, no other associated shortness of breath, had this pain in the past, no relieving factor, no aggravating factor for this pain. Patient also been drinking alcohol last drink was 2 hours ago, patient had a prior hospitalization for alcohol withdrawal. Related Data Previous Rx's Medication Instructions Recorded walker #1 ea 07/05/21 Allergies Allergy/AdvReac Type Severity Reaction Status Date / Time clams Allergy Severe HIVES, Verified 09/28/21 12:59 DIFFICULTY BREATHING Review of Systems Review of Systems: All other systems are reviewed and are negative Constitutional: Reports as per HPI and Reports no additional constitutional complaints Eyes: Reports as per HPI and Reports no additional eye complaints Reports system reviewed and no additional complaints, except as documented Cardiovascular: Reports as per HPI and Reports no additional cardiovascular complaints Respiratory: Reports as per HPI and Reports no additional respiratory complaints Gastrointestinal: Reports as per HPI and Reports no additional gastrointestinal complaints Genitourinary: Reports no additional female genitourinary complaints Musculoskeletal: Reports no additional musculoskeletal complaints Skin/Breast: Reports system reviewed and no additional complaints, except as docu Psychiatric: Reports no additional psychiatric complaints Endocrine: Reports no additional endocrine complaints Hematologic/Lymphatic: Reports no additional hematologic/lymphatic complaints Allergic/Immunologic: Reports no additional allergic/immunologic complaints Reports system reviewed and no additional complaints, except as documented and Reports Abnormal speech present [facility] Past Medical History Medical History ETOH abuse High cholesterol HTN (hypertension) Social History Social History Alcohol intake: current Alcohol intake frequency: 3 or more drinks per day Alcohol type: beer and hard liquor Patient Tobacco Use Status: Current someday Tobacco user Smoked in Last 30 Days: Yes Use of substances other than those prescribed or required for medical reasons: No Advance Directives: No Advance Directives Information Provided: Yes service: No Current occupational status: unemployed Physical Exam ED Vital Signs: Vital Signs - 24 hr 09/28/21 12:59 09/28/21 13:33 09/28/21 14:00 Temperature 97.9 F 97.9 F Pulse Rate 81 81 87 Respiratory Rate 19 19 19 Blood Pressure 112/80 112/80 113/75 Pulse Oximetry 97 97 95 BMI result Body Mass Index 25.4 Vital signs have been reviewed as appeared to be correct. Blood pressure normal. Heart rate normal. Respiration rate normal. Temperature normal. Oxygen saturation normal. Appearance: Alert. Oriented X3. No acute distress. Head: Normal external exam. Normocephalic. Atraumatic. No Willams signs noted. No raccoon eyes noted Eyes: PERRLA. EOMI. Conjunctiva and sclera normal. Eyelids normal. ENT: TM's Normal. Pharynx normal. Uvula midline. Moist mucous membranes. No trismus noted. No drooling noted. No muffled voice noted. Neck: Normal inspection. Neck supple. FROM. No adenopathy. Thyroid Normal. No meningeal signs. No neck mass noted. CVS: Normal heart rate and rhythm. Heart sound normal. No murmurs noted. Pulses normal throughout. Respiratory: No respiratory distress. Painless inspiration. Breath sounds normal. No wheezes/rales/rhonchi noted. Chest nontender. No accessory muscle usage noted or decreased air movement noted. Abdomen: Soft and nontender. Bowel sounds normal in all 4 quadrants. No distention noted. No organomegaly noted. No visible injury noted. Back: No CVA tenderness. Full range of motion noted. Skin: Skin warm and dry. Normal skin color. Normal skin turgor. No rashes/lesions/lacerations noted. Extremities: No lower extremity edema. Extremities exhibit normal range of motion. Extremities nontender. Neuro: Oriented X 3. Cranial nerve exam: II-XII are grossly intact No motor deficit. No sensory deficit. Reflexes normal. Course Reevaluation(s) Reevaluation #1: Assessment and plan. 51-year-old male came in for chest pain, 1st troponin is 10.9 awaiting for 2nd troponin, EKG showed no ischemic changes. HEART score is 3. Will consider CT of the chest to rule out acute pneumonia. signed out to Dr. Hodge for check labs and dispo the patient accordingly. Time: 16:14 Medical Decision Making Lab Data Lab results reviewed: Yes I reviewed the patient's lab results. Result diagrams: 09/28/21 13:23 09/28/21 13:23 Labs: Lab Results 09/28/21 09/28/21 09/28/21 Range/Units 13:23 13:23 13:23 WBC 6.8 (4.8-10.8) X10*3/uL RBC 4.44 L (4.60-5.80) X10*6/uL Hgb 12.1 L (14.0-18.0) g/dl Hct 38.0 L (42.0-52.0) % MCV 85.6 (80.0-98.0) fL MCH 27.3 (27.0-33.0) pg MCHC 31.8 (31.0-36.0) g/dl RDW 17.1 H (11.0-16.0) % Plt Count 226 (160-400) X10*3/uL MPV 10.4 (9.4-12.4) fL Immature Gran % (Auto) 0.4 (0.0-0.4) % Neut % (Auto) 75.7 H (45-73) % Lymph % (Auto) 9.9 L (20-40) % [place] % (Auto) 6.9 (2-11) % Eos % (Auto) 7.0 H (0-4) % Baso % (Auto) 0.1 (0-2) % Lymph # (Auto) 0.7 L (1.2-4.9) X10*3/uL [place] # (Auto) 0.5 (0.1-1.2) X10*3/uL Eos # (Auto) 0.5 H (0.0-0.4) X10*3/uL Baso # (Auto) 0.0 (0.0-0.2) X10*3/uL Abs Immat Gran (auto) 0.03 (0.00-0.03) X10*3/uL Absolute Neuts (auto) 5.2 (2.0-8.3) x10*3/uL Absolute Nucleated RBC 0.000 (0.0-0.012) X10*3/uL Nucleated RBC % (auto) 0.0 (0.0-0.2) /100WBC Sodium 139 (135-145) mmol/L Potassium 4.2 (3.3-5.1) mmol/L Chloride 104 (96-108) mmol/L Carbon Dioxide 26 (22-29) mmol/L Anion Gap 13 (12-20) BUN 14 D (9-16) mg/dL Creatinine 0.69 (0.5-1.4) mg/dL Estim Creat Clear Calc 114.2 Estimated GFR > 60 Random Glucose 92 (60-115) mg/dL Calcium 8.2 L (8.4-10.2) mg/dL Total Bilirubin 0.3 (0.0-1.0) mg/dL Direct Bilirubin < 0.2 (0.0-0.5) mg/dL AST 58 H (5-37) U/L ALT 31 (0-40) U/L Alkaline Phosphatase 75 (39-117) U/L Troponin I High Sens 10.9 (<3.5-35.0) ng/L B-Natriuretic Peptide (<100) pg/mL Total Protein 8.1 H (6.5-8.0) g/dL Albumin 3.5 (3.5-5.0) g/dL Lipase 39 (8-78) U/L Ethyl Alcohol mg/dL COVID-19 (TYE) (Negative) COVID-19 Clin Com 09/28/21 09/28/21 09/28/21 Range/Units 13:23 13:23 13:24 WBC (4.8-10.8) X10*3/uL RBC (4.60-5.80) X10*6/uL Hgb (14.0-18.0) g/dl Hct (42.0-52.0) % MCV (80.0-98.0) fL MCH (27.0-33.0) pg MCHC (31.0-36.0) g/dl RDW (11.0-16.0) % Plt Count (160-400) X10*3/uL MPV (9.4-12.4) fL Immature Gran % (Auto) (0.0-0.4) % Neut % (Auto) (45-73) % Lymph % (Auto) (20-40) % [place] % (Auto) (2-11) % Eos % (Auto) (0-4) % Baso % (Auto) (0-2) % Lymph # (Auto) (1.2-4.9) X10*3/uL [place] # (Auto) (0.1-1.2) X10*3/uL Eos # (Auto) (0.0-0.4) X10*3/uL Baso # (Auto) (0.0-0.2) X10*3/uL Abs Immat Gran (auto) (0.00-0.03) X10*3/uL Absolute Neuts (auto) (2.0-8.3) x10*3/uL Absolute Nucleated RBC (0.0-0.012) X10*3/uL Nucleated RBC % (auto) (0.0-0.2) /100WBC Sodium (135-145) mmol/L Potassium (3.3-5.1) mmol/L Chloride (96-108) mmol/L Carbon Dioxide (22-29) mmol/L Anion Gap (12-20) BUN (9-16) mg/dL Creatinine (0.5-1.4) mg/dL Estim Creat Clear Calc Estimated GFR Random Glucose (60-115) mg/dL Calcium (8.4-10.2) mg/dL Total Bilirubin (0.0-1.0) mg/dL Direct Bilirubin (0.0-0.5) mg/dL AST (5-37) U/L ALT (0-40) U/L Alkaline Phosphatase (39-117) U/L Troponin I High Sens (<3.5-35.0) ng/L B-Natriuretic Peptide 99 (<100) pg/mL Total Protein (6.5-8.0) g/dL Albumin (3.5-5.0) g/dL Lipase (8-78) U/L Ethyl Alcohol 200 mg/dL COVID-19 (TYE) Negative (Negative) COVID-19 Clin Com See Note Imaging Data Chest x-ray: Attestation: I personally reviewed and interpreted this imaging study as follows: Radiologist's impression: Suboptimally expanded lungs with chronic interstitial lung changes. There is consolidation like appearance in left lower lobe retrocardiac area suspicious for infiltrate or chronic scarring.. Chronic scarring was seen on the previous CT chest exam. Correlate with clinical exam ? Discharge Plan Discharge Clinical Impression: Chest pain, Alcohol abuse Patient Disposition: Still a Patient Prescriptions: No Action (DME) nathaniel Misc See Rx Instructions .Route Qty: 1 0RF Rx Instructions: As directed
[2021-09-28 13:28] LABS: MANUAL DIFF FLAG NO
[2021-09-28 13:31] LABS: Basophils Percent Auto 0.1 % (0-2); Eosinophils Absolute Auto 0.5 X10*3/uL (0.0-0.4); Hemoglobin 12.1 g/dl (14.0-18.0); Imm Gran Abs Auto 0.03 X10*3/uL (0.00-0.03); Imm Gran Pct Auto 0.4 % (0.0-0.4); Lymphocytes Absolute Auto 0.7 X10*3/uL (1.2-4.9); Lymphocytes Percent Auto 9.9 % (20-40); Mean Corpuscular HGB Conc 31.8 g/dl (31.0-36.0); Mean Corpuscular Hemoglobin 27.3 pg (27.0-33.0); Mean Corpuscular Volume 85.6 fL (80.0-98.0); Mean Platelet Volume 10.4 fL (9.4-12.4); Monocytes Absolute Auto 0.5 X10*3/uL (0.1-1.2); Monocytes Percent Auto 6.9 % (2-11); Neutrophils Absolute Auto 5.2 x10*3/uL (2.0-8.3); Neutrophils Percent Auto 75.7 % (45-73); Platelet Count 226 X10*3/uL (160-400); Red Blood Count 4.44 X10*6/uL (4.60-5.80); Red Cell Distribution Width 17.1 % (11.0-16.0); White Blood Count 6.8 X10*3/uL (4.8-10.8)
--- NOTE | 2021-09-28 13:31 | PC.NURSE ---
labs draw, 20G IV placed right AC, no new orders at this time
--- NOTE | 2021-09-28 13:39 | PC.NURSE ---
pt a&ox3, vss, c/o mid substernal chest pain, hx of same. recent discharge from detox, pt homeless and started drinking again - 1L vodka and 3 beers this am around 0900. interested in local detox.
[2021-09-28 13:44] LABS: Ethanol 200 mg/dL
[2021-09-28 13:45] LABS: COVID-19 Test Negative (Negative)
[2021-09-28] MEDS: 0.9 % Sodium Chloride 1,000 ML 999 ML IV ×2 (13:47→20:58)
--- NOTE | 2021-09-28 13:48 | PC.NURSE ---
flds started per provider order
--- NOTE | 2021-09-28 13:50 | PC.NURSE ---
pt requesting food, ok per provider to order reg diet lunch
[2021-09-28 13:51] LABS: B Type Natriuretic Peptide 99 pg/mL (<100)
[2021-09-28 13:51] LABS: Troponin-I High Sensitivity 10.9 ng/L (<3.5-35.0)
[2021-09-28 13:52] LABS: Alanine Aminotransferase 31 U/L (0-40); Albumin Level 3.5 g/dL (3.5-5.0); Alkaline Phosphatase 75 U/L (39-117); Anion Gap 13 (12-20); Aspartate Amino Transferase 58 U/L (5-37); Bilirubin Direct < 0.2 mg/dL (0.0-0.5); Bilirubin Total 0.3 mg/dL (0.0-1.0); Blood Urea Nitrogen 14 mg/dL (9-16); Calcium 8.2 mg/dL (8.4-10.2); Carbon Dioxide 26 mmol/L (22-29); Chloride 104 mmol/L (96-108); Creatinine Clr Calc Pharmacy 114.2; Estimated Glomerular Filt Rate > 60; Glucose Random 92 mg/dL (60-115); Lipase 39 U/L (8-78); Potassium 4.2 mmol/L (3.3-5.1); Sodium 139 mmol/L (135-145); Total Protein 8.1 g/dL (6.5-8.0)
--- NOTE | 2021-09-28 14:10 | PC.NURSE ---
pt sleeping, flds running, vss, no new orders at this time.
[2021-09-28 16:47] LABS: Appearance Urine CLEAR; Color Urine YELLOW; Glucose Urine UA NEG (NEG); Leukocyte Esterase Urine NEG (NEG); Nitrite Urine NEG (NEG); Specific Gravity - Urine <= 1.005 (1.005-1.025); Urine Blood NEG (NEG); Urine Ketones NEG (NEG); Urine Protein NEG (NEG-TRACE)
[2021-09-28 17:01] LABS: Troponin-I High Sensitivity 11.4 ng/L (<3.5-35.0)
--- NOTE | 2021-09-28 18:21 | PC.NURSE ---
patient a&ox3, property assessment monitor nsr, ivf continue to run as patient needs constant reminding to keep his arm straight, vss, no c/o pain or discomfort, pt requesting food, will speak with provider and get a diet order
--- NOTE | 2021-09-28 20:38 | PC.NURSE ---
pt a&ox3, reports being very sleepy, vss, sinus tach on monitor w long QT inteverval and occ PVCs - hx of similar before starting on phenobarb protocol. provider notified, ALEJANDRO 0.
[2021-09-28] MEDS: chlordiazePOXIDE HCl 25 MG CAPSULE 50 MG PO (20:58)
--- NOTE | 2021-09-28 21:00 | PC.NURSE ---
medicated per provider order.
--- NOTE | 2021-09-28 21:07 | MHC.RECOVSUP ---
? Reason for consult:Recovery Support o ? ? ?Current location: ED10? o ? ? ?Identified substance use concern: Alcohol - Overdose - Withdrawal - Seeking ATS (detox) - Support ? ?Intervention: o Community resources provided o Harm reduction discussion ? Plan: o Bed search in progress to [facility] ? Additional information:?I was able to connect with patient, he is a 51 year old homeless male with no family support. Patient is seeking detox. I was able to have a consult with Dr. Sanders and patient is held overnight in hopes for detox in the am.
[2021-09-28 21:11] LABS: Magnesium 2.3 mg/dL (1.6-2.6)
--- NOTE | 2021-09-28 22:11 | PC.NURSE ---
pt a&ox3, vss - monitor tech continues to show sinus tach w lng QT interval, provider aware. pt tired but finding it hard to sleep w ED noise. pt seems hopeful that he will have a detox bed to go to tomorrow. discussed working w detox to find local supports/[facility] for post detox. pt requesting food - given two sandwiches. no new orders at this time.
[2021-09-29 02:50] VITALS: BP 122/78; PULSE 92; RESP 16; TEMP 36.9; O2SAT 96
[2021-09-29 06:27] VITALS: BP 124/63; PULSE 98; RESP 16; TEMP 36.9; O2SAT 97
[2021-09-29 06:53] VITALS: BP 138/92; PULSE 98; RESP 15; TEMP 37.3; O2SAT 92
[2021-09-29 09:41] VITALS: BP 140/94; PULSE 99; RESP 14; TEMP 37.3; O2SAT 96
--- NOTE | 2021-09-29 11:45 | MHC.RECOVSUP ---
? Reason for consult:Recovery Support o Current location:ED 6 Good o Identified substance use concern: ETOH - Withdrawal - Seeking ATS (detox) - Support ? Intervention: o ATS bed search started/completed/in process o Harm reduction discussion ? Plan o Bed search in progress to o Patient to follow up with [facility] after discharge ? Additional information:Patient seeking detox. Was able to do an intake with [facility] and has a bed@3:45pm
[2021-09-29 12:08] VITALS: BP 146/94; PULSE 86; RESP 15; TEMP 37.5; O2SAT 95
--- NOTE | 2021-09-29 15:51 | MHC.RECOVRN ---
Pt transported to [facility] via [employer].
== END 2021-09-29 14:41 | disposition home or self-care (01) ==
PROVIDERS: Internal Medicine; Emergency Provider Emergency Medicine
DX: R07.9 Chest pain, unspecified (principal); F10.10 Alcohol abuse, uncomplicated; Y90.7 Blood alcohol level of 200-239 mg/100 ml; Z20.822 Contact with and (suspected) exposure to COVID-19; I10 Essential (primary) hypertension; E78.5 Hyperlipidemia, unspecified; F17.200 Nicotine dependence, unspecified, uncomplicated
CPT/HCPCS: 36415; 71045; 71250; 80048; 80076; 81003; 82077; 83690; 83735; 83880; 84484; 85025; 87635; 93005; 96360; 96361; 99285

== ENCOUNTER 2021-10-01 11:33 | Emergency (ER) | payer MEDICAID, SELFPAY ==
--- NOTE | ~2021-10-01 | XR_ITS ---
EXAMINATION: XR THORACIC SPINE CLINICAL INFORMATION: Status post fall, EtOH. COMPARISON: Chest radiographs dated 09/28/2021. TECHNIQUE: 2 views of the thoracic spine were obtained. FINDINGS: Mild mid thoracic dextro scoliosis with normal spinal alignment. The vertebral bodies are intact. The intervertebral disc spaces are unremarkable. The visualized posterior ribs are intact. The soft tissues are unremarkable. Diffuse increased interstitial markings are seen in the visualized lung santos. XR/XR thoracic spine 3V IMPRESSION: 1. Mild thoracic dextro scoliosis without acute abnormality. 2. Partial visualization of previously seen chronic interstitial pulmonary changes with similar appearance.
--- NOTE | ~2021-10-01 | CT_ITS ---
EXAMINATION: CT HEAD WITHOUT CONTRAST CT CERVICAL SPINE WITHOUT CONTRAST CLINICAL INFORMATION: Fall. EtOH. Head injury. COMPARISON: CT head, CT cervical spine 07/11/2021 TECHNIQUE: Imaging was performed from the skull base to vertex without intravenous administration of contrast. In addition, helical noncontrast CT imaging was acquired through the cervical spine and source images were reviewed along with axial reconstructions and sagittal and coronal MPRs. [This CT examination was performed using dose optimization techniques as appropriate, variously including the following: *Automated exposure control *Adjustment of mA and/or kV according to patient size (this includes techniques or standardized protocols for targeted exams where dose is matched to indication/reason for exam; i.e. extremities or head) *Use of iterative reconstruction technique] DLP: 1277 mGy-cm FINDINGS: HEAD: No intracranial mass, hemorrhage, or midline shift is visualized. There is mild global atrophy. The ventricles and sulci are proportional. No extra-axial collections are identified. The paranasal sinuses and mastoid air cells are well aerated. CERVICAL SPINE: There is no evidence of acute cervical spine fracture. Vertebral bodies remain normal in height. Cervical vertebrae have normal alignment. Cervical disc heights are normal. Mild degenerative change of the facet joints at the mid and lower cervical spine bilaterally. No pre- or paravertebral soft tissue abnormality is identified. Limited assessment of the lung apices is unremarkable. CT/CT head/brain wo con IMPRESSION: 1. No acute intracranial pathology. 2. No CT evidence of acute cervical spine fracture or traumatic subluxation
--- NOTE | ~2021-10-01 | XR_ITS ---
EXAMINATION: XR LUMBOSACRAL SPINE CLINICAL INFORMATION: Low back pain, EtOH COMPARISON: 09/17/2021 lumbar spine radiographs. TECHNIQUE: Three views of the lumbosacral spine. FINDINGS: Mild thoracolumbar levoscoliosis is seen with apex at T12 T1. Mild to moderate multilevel marginal osteophyte formation is again seen. Again seen is a mild superior endplate compression deformity at L1. L5-S1 severe degenerative disc disease, grade 1 anterolisthesis and spondylolysis are again seen without significant change. No overt acute abnormality. The soft tissues are unremarkable. XR/XR lumbar spine 2-3V IMPRESSION: Multilevel degenerative changes, mild superior plate compression deformity at L1 and L5-S1 findings as detailed above without significant change. No acute abnormality.
--- NOTE | ~2021-10-01 | CT_ITS ---
EXAMINATION: CT HEAD WITHOUT CONTRAST CT CERVICAL SPINE WITHOUT CONTRAST CLINICAL INFORMATION: Fall. EtOH. Head injury. COMPARISON: CT head, CT cervical spine 07/11/2021 TECHNIQUE: Imaging was performed from the skull base to vertex without intravenous administration of contrast. In addition, helical noncontrast CT imaging was acquired through the cervical spine and source images were reviewed along with axial reconstructions and sagittal and coronal MPRs. [This CT examination was performed using dose optimization techniques as appropriate, variously including the following: *Automated exposure control *Adjustment of mA and/or kV according to patient size (this includes techniques or standardized protocols for targeted exams where dose is matched to indication/reason for exam; i.e. extremities or head) *Use of iterative reconstruction technique] DLP: 1277 mGy-cm FINDINGS: HEAD: No intracranial mass, hemorrhage, or midline shift is visualized. There is mild global atrophy. The ventricles and sulci are proportional. No extra-axial collections are identified. The paranasal sinuses and mastoid air cells are well aerated. CERVICAL SPINE: There is no evidence of acute cervical spine fracture. Vertebral bodies remain normal in height. Cervical vertebrae have normal alignment. Cervical disc heights are normal. Mild degenerative change of the facet joints at the mid and lower cervical spine bilaterally. No pre- or paravertebral soft tissue abnormality is identified. Limited assessment of the lung apices is unremarkable. CT/CT cervical spine wo con IMPRESSION: 1. No acute intracranial pathology. 2. No CT evidence of acute cervical spine fracture or traumatic subluxation
[2021-10-01 11:41] VITALS: BP 111/77; BP 123/84; PULSE 110; PULSE 98; RESP 16; TEMP 35.9; O2SAT 95; O2SAT 98; BMI 25.9
[2021-10-01 11:55] VITALS: PULSE 98
--- NOTE | 2021-10-01 15:07 | PC.NURSE ---
pt continues to refuse blood work
[2021-10-01 15:30] VITALS: BP 108/68; PULSE 72; RESP 16; TEMP 36.6; O2SAT 98
--- NOTE | 2021-10-01 15:30 | PC.NURSE ---
PATIENT REFUSED LAB DRAW ,RN AWARE.
--- NOTE | 2021-10-01 15:42 | ED.ALCOHOL ---
HPI - Alcohol General Chief Complaint: ETOH/Substance Use Stated Complaint: etoh/fall Time Seen by Provider: 10/01/21 12:40 Source: patient and EMS Mode of arrival: EMS History of Present Illness HPI narrative: 51-year-old male with a past medical history of ETOH abuse, HTN, HLD, BIBA for ETOH intoxication and witnessed fall with head trauma, patient reports LOC however does not clearly remember incident. Reports last drink [employer]TER. Also reports low back pain, acute on chronic worsening since fall. Denies radiation of pain, urinary incontinence/retention, numbness, tingling, weakness, vision change/loss, nausea, vomiting, CP/SOB MD complaint: alcohol intoxication and alcohol dependence Last drink: Just prior to admission Related Data Previous Rx's Medication Instructions Recorded walker #1 ea 07/05/21 Allergies Allergy/AdvReac Type Severity Reaction Status Date / Time clams Allergy Severe HIVES, Verified 09/28/21 12:59 DIFFICULTY BREATHING Review of Systems Review of Systems: Constitutional: No Fever, No Chills, No Fatigue, No Malaise ENT/Mouth: No Ear Pain, No Nasal Congestion, No sore throat, No Rhinorrhea, No Swallowing Difficulty Eyes: No Eye Pain, No Swelling, No Redness, No Vision Changes Cardiovascular: No Chest Pain, No SOB, No Edema, No Palpitations Respiratory: No Cough, No Sputum, No Dyspnea Gastrointestinal: No Nausea, No Vomiting, No Diarrhea, No Constipation, No Abdominal pain Genitourinary: No irregular bleeding, No Dysuria, No Urinary Frequency, No Hematuria, No Urinary Incontinence/retention Musculoskeletal: +back pain, No Myalgias, No Joint Swelling Skin: No Skin Lesions, No rash Neuro: No Weakness, No Numbness, No Paresthesias, Unknown Loss of Consciousness, No Dizziness, + Head injury Psych: No Anxiety/Panic, No Depression, No SI/HI Yes all other systems are reviewed and are negative [facility] Past Medical History Attestation statement: The following information was validated with the patient. Medical History ETOH abuse High cholesterol HTN (hypertension) Social History Social History Alcohol intake: current Alcohol intake frequency: 3 or more drinks per day Alcohol type: beer and hard liquor Patient Tobacco Use Status: Current everyday Tobacco user Smoked in Last 30 Days: Yes Advance Directives: No Advance Directives Information Provided: No service: No Current occupational status: unemployed Physical Exam ED Vital Signs: Vital Signs - 24 hr 10/01/21 11:41 10/01/21 15:30 Temperature 96.6 F L 97.8 F Pulse Rate 98 72 Respiratory Rate 16 16 Blood Pressure 111/77 108/68 Pulse Oximetry 95 98 BMI result Body Mass Index 25.9 Const Other: + ETOH odor on breath General: cooperative Orientation/consciousness: oriented to person and oriented to place Limitations: other limitations (+ETOH intoxication) HENMT Head: Yes normal to inspection, Yes atraumatic, No Willams's sign and No raccoon eyes Ears: hearing grossly normal bilaterally General nose exam: Normal external nose present Face and sinus: Yes normal facial exam Eyes General: appearance normal, both eyes and all related structures Pupils: Equal, round and reactive pupils present EOM: EOMs intact bilaterally Neck Other: C-collar in place Neck: Yes normal visual inspection and Yes no meningeal signs Chest Chest palpation & inspection: no crepitus and no tenderness Resp Effort & Inspection: normal respiratory effort and no respiratory distress Auscultation: clear to auscultation bilaterally Cardio Rate: regular rate Heart sounds: S1 normal heart sound present and S2 normal heart sound present GI Inspection: Yes normal to inspection Palpation (GI): Soft to palpation, nontender, no guarding and not rigid Back/Spine/Pelvis Other: No midline thoracic/lumbar spinous tenderness/step-off or deformity. Bilateral paraspinal lumbar tenderness to palpation Thoracic/Lumbar Spine: thoracic and lumbar spine normal to inspection Skin Rashes: no rashes Wounds: no wounds Neuro General: oriented to person, oriented to place, tone normal, moves all extremities, no meningeal signs and no focal motor deficits Cranial nerves: Yes Equal, round and reactive pupils present Gait exam (Neuro): Normal gait present Motor exam (neuro): 5/5 motor strength present throughout Extrem General: Yes normal to inspection Course Course Course Narrative: Head and cervical spine CT without acute intracranial pathology. CT neck without acute cervical spine fracture or traumatic subluxation. XR thoracic spine 3V IMPRESSION: 1. Mild thoracic dextro scoliosis without acute abnormality. 2. Partial visualization of previously seen chronic interstitial pulmonary changes with similar appearance. XR lumbar spine 2-3V IMPRESSION: Multilevel degenerative changes, mild superior plate compression deformity at L1 and L5-S1 findings as detailed above without significant change. No acute abnormality. >> patient requesting to be discharged. Clinically sober at this time, ambulating to bathroom safely in the ED. Tolerating p.o. -1750--went to discuss results with patient however eloped after using the bathroom MDM - Alcohol MDM Narrative Medical decision making narrative: 51-year-old male with a past medical history of ETOH abuse, HTN, HLD, BIBA for ETOH intoxication and witnessed fall with head trauma, patient reports LOC however does not clearly remember incident. On exam vital signs stable, and AD, ETOH odor on breath, appears intoxicated, sleeping but easily arousable, C-collar in place, no midline spinous tenderness throughout, no focal neuro deficits, MARMOLEJO. Concern for ETOH intoxication. R/o ICH vs fx vs MSK back pain/spasming. Low concern for cauda equina Differential Diagnosis Differential diagnosis: Likely alcohol dependence and alcohol intoxication Medical Records Attestation: I reviewed the patient's medical records. Lab Data Attestation: I reviewed the patient's lab results. Discharge Plan Discharge Clinical Impression: Alcoholic intoxication, Back pain, Fall Patient Disposition: Elopement Instructions: Abuse of Alcohol (DC) Prescriptions: No Action (DME) walker Misc See Rx Instructions .Route Qty: 1 0RF Rx Instructions: As directed
--- NOTE | 2021-10-01 17:11 | MHC.RECOVSUP ---
? Reason for consult Recovery Support o Current location: ED1 o Identified substance use concern: Alcohol <del>-</del> <del>Overdose</del> <del>-</del> <del>Withdrawal</del> <del>-</del> <del>Seeking</del> <del>ATS</del> <del>(detox)</del> <del>-</del> <del>Support</del> ? Intervention: <del>o</del> <del>ATS</del> <del>bed</del> <del>search</del> <del>started/completed/in</del> <del>process</del> <del>o</del> <del>MAT</del> <del>started</del> <del>or</del> <del>to</del> <del>be</del> <del>started</del> o Community resources provided o Harm reduction discussion ? Plan: <del>o</del> <del>Referral</del> <del>to</del> <del>[facility]del> <del>o</del> <del>Bed</del> <del>search</del> <del>in</del> <del>progress</del> <del>to</del> <del>o</del> <del>Follow</del> <del>up</del> <del>tomorrow</del> <del>o</del> <del>Patient</del> <del>awaiting</del> <del>crisis</del> <del>evaluation</del> o Patient to follow up with [facility] after discharge ? Additional information: Patient stated that he just wants to go to his friends house.. We talk harm reduction and where he could go if he needs heip.
== END 2021-10-01 17:57 | disposition left against medical advice (07) ==
PROVIDERS: Emergency Provider Emergency Medicine
DX: F10.229 Alcohol dependence with intoxication, unspecified (principal); Y90.9 Presence of alcohol in blood, level not specified; M54.50 Low back pain, unspecified; M54.2 Cervicalgia; I10 Essential (primary) hypertension; F17.200 Nicotine dependence, unspecified, uncomplicated; Z71.6 Tobacco abuse counseling; Z79.899 Other long term (current) drug therapy
CPT/HCPCS: 70450; 72072; 72100; 72125; 99284; 99285

== ENCOUNTER 2021-11-11 15:54 | Emergency (ER) | payer MEDICAID, SELFPAY ==
[2021-11-11 16:03] VITALS: BP 104/72; PULSE 82; RESP 16; TEMP 36.6; O2SAT 96
[2021-11-11 16:05] VITALS: BP 116/70; BP 142/67; PULSE 72; PULSE 78; RESP 16; O2SAT 94; O2SAT 97; BMI 30.2
--- NOTE | 2021-11-11 16:13 | ED.ALCOHOL ---
HPI - Alcohol General Chief Complaint: ETOH/Substance Use Stated Complaint: etoh Time Seen by Provider: 11/11/21 16:09 Source: patient and EMS Mode of arrival: EMS Limitations: no limitations History of Present Illness HPI narrative: Patient comes to the emergency room via EMS. Earlier today, patient admits that he was drinking a lot of alcohol, but sleepy and decided to lay down in the corner of the street. A bystander found him, EMS was called. Patient states that he did not fall, he was just sleeping in the street. Patient denies chest pain, no shortness of breath. Patient states that the only thing that is firm with him is that he drank too much today. Otherwise, no complaints. Patient denies suicidal or homicidal ideation. Related Data Previous Rx's Medication Instructions Recorded walker #1 ea 07/05/21 Allergies Allergy/AdvReac Type Severity Reaction Status Date / Time clams Allergy Severe HIVES, Verified 09/28/21 12:59 DIFFICULTY BREATHING Review of Systems Review of Systems: Constitutional : No Weight loss, No Fever, No Chills, No Night Sweats, No Fatigue, No Malaise ENT/Mouth : No Hearing loss, No Ear Pain, No Nasal Congestion, No Sinus Pain, No Hoarseness, No sore throat, No Rhinorrhea, No Swallowing Difficulty Eyes: No Eye Pain, No Swelling, No Redness, No Foreign Body, No Discharge, No Vision Changes Cardiovascular : No Chest Pain, No SOB, No Dyspnea on Exertion, No Orthopnea, No Edema, No Palpitations Respiratory : No Cough, No Sputum, No Wheezing, No Smoke Exposure, No Dyspnea Gastrointestinal : No Nausea, No Vomiting, No Diarrhea, No Constipation, No abdominal Pain, No Hematochezia, No Melena Genitourinary : no irregular bleeding, No Dysuria, No Urinary Frequency, No Hematuria, No Urinary Incontinence, No Urgency, No Flank Pain, No Urinary Flow Changes, No Hesitancy Musculoskeletal : No joint pain, No Myalgias, No Joint Swelling Skin : No Skin Lesions, No rash Neuro : No Weakness, No Numbness, No Paresthesias, No Loss of Consciousness, No Dizziness, No Headache Psych : No Anxiety/Panic, No Depression, No SI/HI/AH/VH, No Social Issues, Heme/Lymph: No Bruising, No Bleeding,No Lymphadenopathy Endocrine : No Polyuria, No Polydipsia, No Temperature Intolerance PMFSH Past Medical History Medical History ETOH abuse High cholesterol HTN (hypertension) Social History Social History Alcohol intake: current Alcohol intake frequency: 3 or more drinks per day Alcohol type: beer and hard liquor Patient Tobacco Use Status: Current everyday Tobacco user service: No Current occupational status: unemployed Physical Exam ED Vital Signs: Vital Signs - 24 hr 11/11/21 16:03 11/11/21 16:05 Temperature 97.8 F Pulse Rate 82 78 Respiratory Rate 16 16 Blood Pressure 104/72 116/70 Pulse Oximetry 96 97 BMI result Body Mass Index 30.2 Const Other: Appearance: Alert. Oriented X3. No acute distress. Eyes: Pupils equal, round and reactive to light. ENT: Pharynx normal. Neck: Normal inspection. Neck supple. No lymph nodes noted. No crepitus CVS: Normal heart rate and rhythm. Pulses normal. Normal S1 and S2 Respiratory: No respiratory distress. Breath sounds normal. No Wheezing. No rales Abdomen: Soft and nontender. No rigidity. No distention. Skin: Skin warm and dry. Normal skin color. Normal skin turgor. No signs of falls/trauma Extremities: No lower extremity edema. No Lacerations. No Rash Neuro: Oriented X 3. No motor deficit. No sensory deficit. Moving all extremities. No slurred speech. CN 2 through 12 grossly intact Psych: calm, cooperative, normal affect, coherent Course Course Course Narrative: Plan is to metabolized to freedom. Physician observation started at 16:25 Discharge Plan Discharge Clinical Impression: Alcoholic intoxication Patient Disposition: Still a Patient Prescriptions: No Action (DME) walker Misc See Rx Instructions .Route Qty: 1 0RF Rx Instructions: As directed
[2021-11-11 16:35] LABS: Glucose, Whole Blood 96 mg/dL (60-115)
[2021-11-11 19:00] VITALS: BP 120/69; PULSE 99; RESP 16; TEMP 36.2; O2SAT 94
--- NOTE | 2021-11-11 20:19 | MHC.RECOVSUP ---
? Reason for consult:Recovery Support o Current location:[facility] o Identified substance use concern:ETOH - Seeking ATS (detox) - Support ? Intervention: o ATS bed search started/completed/in process o Harm reduction discussion ? Plan: o Follow up tomorrow o Patient to follow up with HF after discharge ? Additional information:Patient seeking detox, Patient has a bed @ [facility] for 9:45am f/u tomorrow
[2021-11-11 23:02] VITALS: BP 114/67; PULSE 86; RESP 18; O2SAT 97
[2021-11-12 03:03] VITALS: BP 118/66; PULSE 87; RESP 18; O2SAT 97
[2021-11-12 04:31] VITALS: BP 144/98; PULSE 99; RESP 18; O2SAT 98
[2021-11-12 06:30] VITALS: BP 140/83; PULSE 74; RESP 18; TEMP 36.9; O2SAT 97
== END 2021-11-12 08:06 | disposition still patient (30) ==
PROVIDERS: Emergency Provider Emergency Medicine
DX: F10.129 Alcohol abuse with intoxication, unspecified (principal); Y90.9 Presence of alcohol in blood, level not specified; F17.200 Nicotine dependence, unspecified, uncomplicated; Z71.6 Tobacco abuse counseling
CPT/HCPCS: 82947; 99283

== ENCOUNTER 2021-11-22 20:46 | Emergency (ER) | payer MEDICAID, SELFPAY ==
--- NOTE | ~2021-11-22 | CT_ITS ---
EXAM: CT scan of the head and cervical spine. INDICATION: Reason for Exam fall TECHNIQUE: A noncontrast CT scan was performed from the skull base to the vertex. A noncontrast CT scan of the cervical spine was performed from the base of the skull through T1 at 2.5 mm and 1.25 mm collimation. Coronal and sagittal reformats were obtained at the acquisition workstation. This CT examination was performed using dose optimization techniques as appropriate, variously including the following: *Automated exposure control *Adjustment of mA and/or kV according to patient size (this includes techniques or standardized protocols for targeted exams where dose is matched to indication/reason for exam; i.e. extremities or head) *Use of iterative reconstruction technique DLP: 812 and 338 mGy-cm COMPARISON: 10/01/2021 FINDINGS: Head: There is no evidence of acute intracranial hemorrhage or territorial infarction. Lemus-white matter differentiation is preserved. No abnormal mass effect or midline shift. No extra-axial fluid collections. No abnormal attenuation is demonstrated within the brain parenchyma. Facet The ventricles and sulcal spaces are proportional without hydrocephalus. Proportional prominence of the ventricles and sulcal spaces. No acute osseous or soft tissue abnormalities. The mastoid air cells and visualized portions of the paranasal sinuses are well aerated. Cervical Spine: The atlantooccipital and atlantoaxial articulations remain well aligned. Straightening of the normal cervical lordosis. Otherwise, there is anatomic alignment of the vertebral bodies and posterior elements. No evidence of acute fracture or subluxation. The vertebral body heights and disc spaces are maintained. There is no prevertebral soft tissue swelling. The thyroid gland and remaining cervical soft tissues are normal in appearance. The lung apices demonstrate no abnormalities. CT/CT cervical spine wo con IMPRESSION: No acute intracranial pathology. No acute fracture subluxation cervical spine.
[2021-11-22 20:52] VITALS: BP 120/86; PULSE 105; O2SAT 98
--- NOTE | 2021-11-22 21:45 | ED_ITS ---
HPI - Alcohol General Chief Complaint: Fall Stated Complaint: ETOH/Fall Time Seen by Provider: 11/22/21 21:44 History of Present Illness HPI narrative: Patient is a 51-year-old male positive ETOH accident fell. Hit the left little area. Patient unable to give any details but denies any suicidal homicidal ideation has no specific pain moving arms and legs. Related Data Previous Rx's Medication Instructions Recorded walker #1 ea 07/05/21 Allergies Allergy/AdvReac Type Severity Reaction Status Date / Time clams Allergy Severe HIVES, Verified 09/28/21 12:59 DIFFICULTY BREATHING Review of Systems Review of Systems: Positive head injury, positive ETOH patient unable to answer detailed review system [facility] Past Medical History Attestation statement: The following information was validated with the patient. Medical History ETOH abuse High cholesterol HTN (hypertension) Social History Social History Alcohol intake: current Alcohol intake frequency: 3 or more drinks per day Alcohol type: beer and hard liquor Patient Tobacco Use Status: Current everyday Tobacco user Advance Directives: No Advance Directives Information Provided: No service: No Current occupational status: unemployed Physical Exam ED Vital Signs: Vital Signs - 24 hr 11/22/21 21:56 11/23/21 00:17 Temperature 98 F 97.9 F Pulse Rate 88 62 Respiratory Rate 16 16 Blood Pressure 104/64 144/70 H Pulse Oximetry 96 95 BMI result Body Mass Index 23.7 Appearance: Alert. Oriented X3. No acute distress. Eyes: Pupils equal, round and reactive to light. ENT: Pharynx normal. Neck: Normal inspection. Neck supple. No lymph nodes noted. No crepitus CVS: Normal heart rate and rhythm. Pulses normal. Normal S1 and S2 Respiratory: No respiratory distress. Breath sounds normal. No Wheezing. No rales Abdomen: Soft and nontender. No rigidity. No distention. good BS x4 Skin: Skin warm and dry. Normal skin color. Normal skin turgor. Extremities: No lower extremity edema. Neurovascular intact to all extremities. No Lacerations. No Rash Neuro: Oriented X 3. No motor deficit. No sensory deficit. Moving all extermities. No slurred speech MDM - Alcohol MDM Narrative Medical decision making narrative: Will get CT scan of the head and C-spine to rule out the possibility of fracture in bleed. Will go ahead and get basic labs and check alcohol level. Tetanus updated Patient's CT scan of the head was grossly negative for any acute evidence of bleeding. CT scan C-spine showed no fracture no malalignment. Refused blood work currently waiting sobering in stable condition. Discharge Plan Discharge Clinical Impression: Alcohol intoxication Patient Disposition: Still a Patient Instructions: Alcohol Intoxication (ED) Prescriptions: No Action (DME) nathaneil Arriaga See Rx Instructions .Route Qty: 1 0RF Rx Instructions: As directed Referrals: Physician,None [Primary Care Provider] - (Please stop drinking alcohol. Please go to detox.)
[2021-11-22 21:52] VITALS: BMI 23.7
[2021-11-22 21:56] VITALS: BP 104/64; PULSE 88; RESP 16; TEMP 36.6; O2SAT 96
[2021-11-22] MEDS: Diphth,Pertus(ACell),Tet Adult 0.5 ML SYRINGE IM (22:11)
--- NOTE | 2021-11-22 22:14 | PC.NURSE ---
PATIENT REFUSED LAB DRAW ,RN DAWNA ALMAZAN IS AWARE .
--- NOTE | 2021-11-22 23:06 | PC.NURSE ---
Patient refused lab work
[2021-11-23 00:17] VITALS: BP 144/70; PULSE 62; RESP 16; TEMP 36.6; O2SAT 95
--- NOTE | 2021-11-23 01:50 | PC.NURSE ---
Pt wakes to voice and touch, in hallway bed sleeping. Pt used urinal, output 400ml. Pt fully dressed in street clothes.
[2021-11-23 02:00] VITALS: PULSE 72; RESP 16
[2021-11-23 05:17] VITALS: BP 128/79; PULSE 74; RESP 16; TEMP 36.6; O2SAT 98
--- NOTE | 2021-11-23 05:18 | PC.NURSE ---
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
== END 2021-11-23 08:29 | disposition home or self-care (01) ==
PROVIDERS: Emergency Provider Emergency Medicine Emergency Medical Services
DX: S00.91XA Abrasion of unspecified part of head, initial encounter (principal); F10.129 Alcohol abuse with intoxication, unspecified; M54.2 Cervicalgia; R51.9 Headache, unspecified; Y90.9 Presence of alcohol in blood, level not specified; F17.200 Nicotine dependence, unspecified, uncomplicated; W19.XXXA Unspecified fall, initial encounter; Y93.9 Activity, unspecified; Y92.9 Unspecified place or not applicable; Y99.9 Unspecified external cause status; Z71.6 Tobacco abuse counseling
CPT/HCPCS: 70450; 72125; 90471; 90715; 99283; 99284

== ENCOUNTER 2021-11-23 15:04 | Emergency (ER) | payer MEDICAID, SELFPAY ==
[2021-11-23 15:31] VITALS: BP 101/64; BP 112/77; PULSE 103; RESP 18; O2SAT 96; BMI 25.8
--- NOTE | 2021-11-23 15:37 | ED.ALCOHOL ---
HPI - Alcohol General Chief Complaint: ETOH/Substance Use Stated Complaint: ETOH PER EMS Time Seen by Provider: 11/23/21 15:15 Source: patient Mode of arrival: EMS Limitations: other (ETOH abuse) History of Present Illness HPI narrative: was drinking and ex girlfriend called due to patient being outside in her yard - no falls complaint: alcohol intoxication Last drink: Just prior to admission Chronic alcohol use: Yes Previous visits for alcohol intoxication: Yes Recent trauma: No Associated symptoms: denies other symptoms Treatments prior to arrival: none Related Data Previous Rx's Medication Instructions Recorded walker #1 ea 07/05/21 Allergies Allergy/AdvReac Type Severity Reaction Status Date / Time clams Allergy Severe HIVES, Verified 09/28/21 12:59 DIFFICULTY BREATHING Review of Systems Review of Systems: Constitutional : No Fever, No Chills ENT/Mouth : No Ear Pain, No Nasal Congestion, No sore throat Eyes: No Eye Pain, No Swelling, No Redness Cardiovascular : No Chest Pain, No SOB Respiratory : No Cough, No Sputum, No Dyspnea Gastrointestinal : No Nausea, No Vomiting, No Diarrhea, No Hematochezia, No Melena Genitourinary : No Dysuria, No Urinary Frequency, No Hematuria Musculoskeletal : No Myalgias Skin : No Skin Lesions, No rash Neuro : No Weakness, No Numbness, No Paresthesias, No Dizziness, No Headache Psych : positive Anxiety, positive Depression, no SI/HI Heme/Lymph: No Lymphadenopathy Endocrine : No Polyuria, No Polydipsia All other systems reviewed and are negative [facility] Past Medical History Attestation statement: The following information was validated with the patient. Medical History ETOH abuse High cholesterol HTN (hypertension) Social History Social History Alcohol intake: current Alcohol intake frequency: 3 or more drinks per day Alcohol type: beer and hard liquor Patient Tobacco Use Status: Current everyday Tobacco user Advance Directives: No Advance Directives Information Provided: No service: No Current occupational status: unemployed Physical Exam ED Vital Signs: Vital Signs - 24 hr 11/23/21 15:31 Pulse Rate 103 H Respiratory Rate 18 Blood Pressure 101/64 Pulse Oximetry 96 BMI result Body Mass Index 25.8 Appearance: Alert. Oriented X3. No acute distress. ETOH odor, slurred speech Eyes: Pupils equal, round and reactive to light. ENT: Pharynx normal. Atraumatic Neck: Normal inspection. Neck supple. CVS: Normal heart rate and rhythm. Pulses normal. Respiratory: No respiratory distress. Breath sounds normal. Abdomen: Soft and nontender. Skin: Skin warm and dry. Normal skin color. Normal skin turgor. Extremities: No lower extremity edema. No calf ttp Neuro: Oriented X 3. No motor deficit. No sensory deficit. Course Course Course Narrative: signed out to Nai CAMPOS pending clinical sobriety MDM - Alcohol MDM Narrative Medical decision making narrative: 51 yo male hx of HTN, HLD, ETOH abuse was drinking today and was outside ex girlfriend's house and 911 called no trauma, no SI - at this time will need observation until clinically sober Discharge Plan Discharge Clinical Impression: Alcohol intoxication Qualifiers: Complication of substance-induced condition: uncomplicated Qualified Code(s): F10.920 - Alcohol use, unspecified with intoxication, uncomplicated Patient Disposition: Still a Patient Prescriptions: No Action (DME) walker Francoisec See Rx Instructions .Route Qty: 1 0RF Rx Instructions: As directed
[2021-11-23 17:26] LABS: Glucose, Whole Blood 82 mg/dL (60-115)
[2021-11-23 17:29] VITALS: BP 105/71; PULSE 82; RESP 18; O2SAT 95
[2021-11-23 17:57] LABS: COVID-19 Test Negative (Negative); IDNOW Serial# 9DB6401D
--- NOTE | 2021-11-23 17:59 | MHC.RECOVSUP ---
? Reason for consult Recovery Support o Current location: [facility]6 o Identified substance use concern: Alcohol <del>-</del> <del>Support</del> ? Intervention: <del>o</del> <del>ATS</del> <del>bed</del> <del>search</del> <del>started/completed/in</del> <del>process</del> <del>o</del> <del>MAT</del> <del>started</del> <del>or</del> <del>to</del> <del>be</del> <del>started</del> <del>o</del> <del>Community</del> <del>resources</del> <del>provided</del> <del>o</del> <del>Harm</del> <del>reduction</del> <del>discussion</del> ? Plan: <del>o</del> <del>Referral</del> <del>to</del> <del>[facility]</del> <del>o</del> <del>Bed</del> <del>search</del> <del>in</del> <del>progress</del> <del>to</del> <del>o</del> <del>Follow</del> <del>up</del> <del>tomorrow</del> <del>o</del> <del>Patient</del> <del>awaiting</del> <del>crisis</del> <del>evaluation</del> o <del>Patient</del> <del>to</del> <del>follow</del> <del>up</del> <del>with</del> <del>[facility]</del> <del>after</del> <del>discharge</del> ? Additional information: Patient Left AMA while being Interviewed...
--- NOTE | 2021-11-23 18:15 | PC.NURSE ---
pt not found at bedside
== END 2021-11-23 18:15 | disposition left against medical advice (07) ==
PROVIDERS: Emergency Provider Emergency Medicine
DX: F10.120 Alcohol abuse with intoxication, uncomplicated (principal); Y90.9 Presence of alcohol in blood, level not specified; Z20.822 Contact with and (suspected) exposure to COVID-19; F41.9 Anxiety disorder, unspecified; F32.A Depression, unspecified; E78.5 Hyperlipidemia, unspecified; F17.200 Nicotine dependence, unspecified, uncomplicated
CPT/HCPCS: 82947; 87635; 99283; 99284

== ENCOUNTER 2021-11-27 11:25 | Emergency (ER) | payer MEDICAID, SELFPAY ==
[2021-11-27 11:30] VITALS: BP 124/58; PULSE 73; PULSE 90; RESP 18; TEMP 36.7; O2SAT 95; BMI 25.8
--- NOTE | 2021-11-27 11:32 | ED.ALCOHOL ---
HPI - Alcohol General Chief Complaint: ETOH/Substance Use Stated Complaint: ETOH INTOXICATION PER EMS Time Seen by Provider: 11/27/21 11:32 Source: patient and EMS Mode of arrival: ambulatory Limitations: no limitations History of Present Illness HPI narrative: 51-year-old homeless male with a past medical history of alcohol abuse and dependence, hypertension, hyperlipidemia, presents via EMS for being found sleeping on the street behind a [employer]. Patient states his last drink was just prior to arrival, he drank 3 beers this morning. Endorsing drinking greater than 15 drinks a day, states he drinks mostly beer. Denies drug use. Denies suicidal ideation or homicidal ideation, denies hallucinations. Denies chest pain, shortness of breath, recent falls, neck pain, headache, fevers, cough, abdominal pain, nausea, vomiting Patient states he is interested in rehab. Patient has had multiple prior visits to this emergency room for alcohol intoxication and alcohol dependence MD complaint: alcohol intoxication and alcohol dependence Last drink: Just prior to admission Amount of alcohol consumed: 3 beers Chronic alcohol use: Yes Previous visits for alcohol intoxication: Yes Recent trauma: No Associated symptoms: denies other symptoms Treatments prior to arrival: none Related Data Previous Rx's Medication Instructions Recorded walker #1 ea 07/05/21 Allergies Allergy/AdvReac Type Severity Reaction Status Date / Time clams Allergy Severe HIVES, Verified 09/28/21 12:59 DIFFICULTY BREATHING Review of Systems Constitutional: Constitutional: Denies body ache(s), Denies chills, Denies fever(s), Denies headache(s) and Denies weakness Eyes: Eyes: Denies blurry vision ENT: Denies vertigo, Denies dizziness, Denies otalgia, Denies headache(s), Denies mouth pain, Denies nasal congestion, Denies neck pain and Denies sore throat Cardiovascular: Cardiovascular: Denies chest pain, Denies syncope, Denies lightheadedness, Denies Loss of Consciousness, Denies palpitations and Denies dyspnea Respiratory: Respiratory: Denies chest congestion, Denies cough and Denies dyspnea Comments: denies recent falls Gastrointestinal: Gastrointestinal: Denies abdominal pain, Denies diarrhea, Denies nausea and Denies vomiting Musculoskeletal: Musculoskeletal: Denies back pain, Denies muscle weakness, Denies neck pain, Denies numbness and Denies tingling Integumentary/Breasts: Skin/Breast: Denies wounds Neurologic: Denies vertigo, Denies dizziness, Denies syncope, Denies headache(s), Denies focal weakness, Denies numbness, Denies Sensory deficit (Neuro), Denies tingling and Denies weakness Psychiatric: Psychiatric: Denies auditory hallucinations, Denies visual hallucinations, Denies homicidal ideation and Denies suicidal ideation Endocrine: Endocrine: Denies palpitations PMFSH Past Medical History Medical History ETOH abuse High cholesterol HTN (hypertension) Social History Social History Alcohol intake: current Alcohol intake frequency: does not drink Alcohol type: beer and hard liquor Patient Tobacco Use Status: Current everyday Tobacco user Advance Directives: No Advance Directives Information Provided: No service: No Current occupational status: unemployed Physical Exam ED Vital Signs: Vital Signs - 24 hr 11/27/21 11:30 Temperature 98.1 F Pulse Rate 73 Respiratory Rate 18 Blood Pressure 124/58 L Pulse Oximetry 95 BMI result Body Mass Index 25.8 Const General: cooperative, no acute distress, alert, awake, poor hygiene and tired appearing Nutritional Appearance: malnourished Orientation/consciousness: patient oriented x3 Limitations: no limitations HENMT Head: Yes normal to inspection, Yes normocephalic and Yes atraumatic Ears: hearing grossly normal bilaterally, external ears normal, TM's normal bilaterally and EAC's normal General nose exam: Normal external nose present Face and sinus: Yes normal facial exam and Yes sinuses nontender Mouth: Normal oral and palatal mucosa present Throat: Yes posterior oropharynx normal Eyes Conjunctivae: conjunctivae normal Pupils: Equal, round and reactive pupils present EOM: EOMs intact bilaterally Neck Neck: Yes full ROM, Yes no lymphadenopathy and Yes supple Resp Effort & Inspection: normal respiratory effort and able to speak in complete sentences Auscultation: clear to auscultation bilaterally, no crackles, no rales, no rhonchi and no wheezes Cardio Rate: regular rate Rhythm: regular rhythm Heart sounds: S1 normal heart sound present and S2 normal heart sound present GI Inspection: Yes normal to inspection Palpation (GI): Soft to palpation, nontender, no guarding and not rigid Percussion: Yes normal to percussion Auscultation: normal bowel sounds Other: Patient has been incontinent of urine General: Yes no CVA tenderness Back/Spine/Pelvis Back: no CVA tenderness Skin Other: sunburned arms Neuro General: patient oriented x3, tone normal and moves all extremities Cranial nerves: Yes Equal, round and reactive pupils present Sensory Exam: No Sensory deficit (Neuro) Extrem General: Yes normal to inspection and Yes full ROM Psych Appearance: grossly normal Affect: normal affect Attitude: cooperative Thought process: Normal thought process present Course Course Course Narrative: 51-year-old male presents for alcohol abuse and dependence after being found sleeping on the streets outside of a grocery store this morning. Patient was brought in by ambulance. Patient is seen frequently in this emergency room for similar presentation. On my exam, patient has stable vitals, denies any complaints. Patient has a wet spot in the front of his pants, sunburned arms, he is disheveled. Denies SI, HI, endorses drinking just prior to arrival, states he would like rehab. Keo, power and recovery supervisor, came to assess patient Keo states there is a bed at [facility] if patient checks out medically. Keo states that patient has been admitted to [facility] in the past and has eloped Reevaluation(s) Reevaluation #1: Patient is accepted at [facility] for 14:00 today. [facility] states they do not need labs, I have canceled those. MDM - Alcohol Lab Data Labs: Lab Results 11/27/21 Range/Units 12:30 COVID-19 (TYE) Negative (Negative) COVID-19 Clin Com See Note Discharge Plan Discharge Clinical Impression: Alcohol dependence, Alcohol abuse Patient Disposition: Xfer Other Transfer Details: [facility] Prescriptions: No Action (DME[place] [facility] [place] Instructions .Route Qty: 1 0RF Rx Instructions: As directed
--- NOTE | 2021-11-27 12:08 | MHC.RECOVSUP ---
Addendum entered by [facility] 11/27/21 12:35: Patient accepted to [facility]. Admission scheduled for 1415. Plan for patient to discharge at 1330. Transportation via Lyft. Original Note: Recovery Support note: Patient is a 51 year old Tajik speaking male who presented to [facility] ED due to being intoxicated in the community. Patient reports he is interested in going to detox however only wants to go somewhere local. Patient referred to [facility] and intake is complete. Awaiting follow up from this facility. Discussed case with ED provider.
--- NOTE | 2021-11-27 12:39 | PC.NURSE ---
Pt alert and oriented x4, calm and cooperative now. Pt denies pain. Pt ambulated with RN to change clothes, pants wet with urine. Vitals stable. Pt to be accepted to [facility] at 2pm. Per Keo case management labs not required per already accepted at [facility]. BETH Guajardo made aware. Pt resting in stretcher waiting for dispo. No IV in place.
[2021-11-27 13:01] LABS: COVID-19 Test Negative (Negative); IDNOW Serial# 16C4AD1C
[2021-11-27 13:47] VITALS: BP 122/60; PULSE 70; RESP 16; TEMP 36.6; O2SAT 96
== END 2021-11-27 13:58 | disposition home or self-care (01) ==
PROVIDERS: Physician Assistant; Emergency Provider Student in an Organized Health Care Education/Training Program
DX: F10.129 Alcohol abuse with intoxication, unspecified (principal); Y90.8 Blood alcohol level of 240 mg/100 ml or more; Z20.822 Contact with and (suspected) exposure to COVID-19; Z79.899 Other long term (current) drug therapy; Z71.41 Alcohol abuse counseling and surveillance of alcoholic
CPT/HCPCS: 87635; 99284; 99285

== ENCOUNTER 2022-01-10 18:15 | Emergency (ER) | payer MEDICAID, SELFPAY ==
--- NOTE | ~2022-01-10 | CT_ITS ---
EXAMINATION: CT HEAD WITHOUT CONTRAST (STROKE PROTOCOL) CLINICAL INFORMATION: Stroke protocol. Fall. EtOH. COMPARISON: None TECHNIQUE: Contiguous axial imaging was performed from the skull base to vertex without intravenous administration of contrast. Coronal and sagittal reformatted images are performed at CT scanner This CT examination was performed using dose optimization techniques as appropriate, variously including the following: *Automated exposure control *Adjustment of mA and/or kV according to patient size (this includes techniques or standardized protocols for targeted exams where dose is matched to indication/reason for exam; i.e. extremities or head) *Use of iterative reconstruction technique DLP: 778 mGy-cm FINDINGS: There is acute intracranial hemorrhage. There is a small right-sided subdural hematoma measuring about 2 mm in thickness at the right frontal parietal region. There is subarachnoid hemorrhage in the right frontal parietal and temporal lobe regions. There is hemorrhage in the basilar cisterns with hemorrhage extending into the right and left sylvian fissure No intraventricular hemorrhage. No mass effect or midline shift. No focal parenchymal lesion. Lemus-white differentiation maintained. There is a small volume of air in the infratemporal fossa. There is a fracture of the posterior wall of the left sphenoid sinus. There is a fracture of the left zygomatic arch. Fracture This fracture through the posterior lateral wall of the left orbit. There is fluid, presumably hemorrhage, in the sphenoid sinuses bilateral. The transverse fracture through the left sphenoid wing at the middle cranial fossa. There is a small fracture at the inferior left temporal bone. Small volume of pneumocephalus in the left middle cranial fossa. The mastoid air cells and middle ear cavities are normally aerated. CT/CT head for stroke IMPRESSION: 1. Acute intracranial hemorrhage. There is acute hemorrhage within the basilar cisterns extends bilaterally into the sylvian fissure, right greater than left. There is a small right-sided subdural hematoma. There is right-sided subarachnoid hemorrhage. No mass effect. 2. Multiple fractures on the left involving the left posterior orbit, left zygomatic arch, left sphenoid wing with fracture extending into the inferior left temporal bone small volume of pneumocephalus associated with fracture of the left middle cranial fossa. This critical result was discussed with Dr. Garcia at 1859 hours on 01/10/2022. It was ascertained that the content and urgency of the report was understood at the time of direct communication.
--- NOTE | ~2022-01-10 | CT_ITS ---
EXAMINATION: CT CHEST, ABDOMEN AND PELVIS WITHOUT CONTRAST. CLINICAL INFORMATION: Fall. Assess for internal bleeding, Fall on to chest . COMPARISON: 09/28/2021. TECHNIQUE: Multidetector volumetric imaging was performed from the thoracic inlet through the pubic symphysis without intravenous contrast. Sagittal and coronal reformatted images were obtained on the technologist workstation. This CT examination was performed using dose optimization techniques as appropriate, variously including the following: *Automated exposure control *Adjustment of mA and/or kV according to patient size (this includes techniques or standardized protocols for targeted exams where dose is matched to indication/reason for exam; i.e. extremities or head) *Use of iterative reconstruction technique DLP: 1087 mGy-cm FINDINGS: CHEST: Lungs: Patchy bilateral airspace disease is again seen with a peripheral predominance with subpleural honeycombing suggesting underlying interstitial lung disease/fibrotic changes as noted on the prior 09/28/2021 study. I do not appreciate any additional acute superimposed airspace disease. No significant effusion or pneumothorax Mediastinum: Prominent hilar and mediastinal adenopathy is seen. The largest right paratracheal lymph node measures 1.3 cm in short axis similar to the prior study. Small hiatal hernia. Pericardium/Pleura: No significant effusion. No pleural mass or thickening. Chest Wall/Axilla: Prominent axillary lymph nodes seen with fatty venus bilaterally similar to the prior study ABDOMEN/PELVIS: Peritoneal Space:No significant free air or free fluid identified. Liver, Gallbladder, Biliary Tree: The non contrast liver is normal in size, shape, and attenuation. No focal hepatic lesion or biliary ductal dilatation is present. The gallbladder is unremarkable with no evidence of radiopaque gallstones, gallbladder wall thickening, or obvious pericholecystic inflammatory changes. Pancreas: Unremarkable. Spleen: Unremarkable. Adrenal Glands: Unremarkable. Kidneys and Ureters: The kidneys are normal in size, shape, and attenuation. No hydronephrosis, hydroureter, or calculi seen. No perinephric stranding. Bladder: Unremarkable. Gastrointestinal Tract: Few scattered colonic diverticula are seen. No colonic wall thickening or pericolonic inflammatory changes. Normal-appearing appendix in the right lower quadrant. Visualized small bowel unremarkable. Abdominal Wall: No significant hernia is appreciated. Lymphovascular Structures: Minimal vascular calcification within the aorta iliac system. Pelvic Viscera: Unremarkable. Osseus Structures: Bony callus formation consistent with old healed nondisplaced fractures of the left anterior eighth rib and posterior 11th rib. No acute displaced rib fractures chronic degenerative changes to the bilateral hips. Chronic appearing changes to the spine. There is a chronic compression deformity of L1 similar to the 09/17/2021 study as well as bilateral pars defects and chronic grade 2 anterolisthesis of L5 on S1 also similar to the prior study. CT/CT abdomen pelvis wo con IMPRESSION: No visceral organ injury seen. No acute fracture or dislocation with chronic appearing bony changes. Extensive chronic appearing changes to the lung parenchyma suggesting underlying interstitial lung disease. This could be clinically correlated..
--- NOTE | ~2022-01-10 | CT_ITS ---
EXAMINATION: CT CERVICAL SPINE WITHOUT CONTRAST CLINICAL INFORMATION: Status post fall with head strike, neck pain. COMPARISON: CT scan of the cervical spine dated 11/22/2021. TECHNIQUE: Multiple axial images of the cervical spine were obtained without the administration of intravenous contrast. Coronal and sagittal reformatted images were obtained. This CT examination was performed using dose optimization techniques as appropriate, variously including the following: *Automated exposure control *Adjustment of mA and/or kV according to patient size (this includes techniques or standardized protocols for targeted exams where dose is matched to indication/reason for exam; i.e. extremities or head) *Use of iterative reconstruction technique DLP: 448.66 mGy-cm FINDINGS: Mild cervical thoracic levoscoliosis is seen with apex at T1. There is straightening of the normal cervical lordosis with normal spinal alignment. The vertebral bodies and intervertebral disc spaces are unremarkable. The odontoid process is intact. The neural foramina are patent. The facet facet joints show mild arthropathy on the right at C4-C5 and C5-C6. The spinous processes are intact. The cervical soft tissues are unremarkable. There is no lymphadenopathy. The thyroid gland is unremarkable. The visualized lung apices are unremarkable. CT/CT cervical spine wo con IMPRESSION: No acute cervical spine abnormality. Fleischner guidelines were followed.
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
[2022-01-10 18:43] VITALS: BP 130/80; PULSE 80; O2SAT 99; BMI 23.5
--- NOTE | 2022-01-10 18:46 | PC.NURSE ---
PT WITH VISIBLE LAC TO L SIDE OF HEAD, ? NOSE BLEED/LAC TO NOSE AT THIS TIME. DRIED BLOOD ON PT FACE. PT IN C-COLLAR. L SIDED FACIAL DROOP IMMEDIATELY REPORTED TO PROVIDER. PT WEAK ON L SIDE. STROKE PROTOCOL INITIATED.
[2022-01-10 18:58] VITALS: BMI 27.5
[2022-01-10 19:03] VITALS: BP 118/81; PULSE 877; RESP 14; O2SAT 99
--- NOTE | 2022-01-10 19:04 | PC.NURSE ---
call out to [facility] transfer line @[phone]
[2022-01-10 19:10] LABS: Basophils Percent Auto 0.6 % (0-2); Eosinophils Absolute Auto 0.3 X10*3/uL (0.0-0.4); Eosinophils Percent Auto 5.7 % (0-4); Hematocrit 42.3 % (42.0-52.0); Hemoglobin 13.8 g/dl (14.0-18.0); Imm Gran Abs Auto 0.02 X10*3/uL (0.00-0.03); Imm Gran Pct Auto 0.4 % (0.0-0.4); Lymphocytes Percent Auto 19.9 % (20-40); MANUAL DIFF FLAG SCAN; Mean Corpuscular HGB Conc 32.6 g/dl (31.0-36.0); Mean Corpuscular Hemoglobin 29.8 pg (27.0-33.0); Mean Corpuscular Volume 91.4 fL (80.0-98.0); Monocytes Absolute Auto 0.8 X10*3/uL (0.1-1.2); Monocytes Percent Auto 16.1 % (2-11); Neutrophils Absolute Auto 2.9 x10*3/uL (2.0-8.3); Neutrophils Percent Auto 57.3 % (45-73); PLT CLUMP 1; Red Blood Count 4.63 X10*6/uL (4.60-5.80); Red Cell Distribution Width 16.9 % (11.0-16.0); SCAN SMEAR FLAG 1
[2022-01-10 19:15] LABS: INTERNATIONAL NORM RATIO 0.9 (0.9-1.1); White Blood Count 5.1 X10*3/uL (4.8-10.8)
--- NOTE | 2022-01-10 19:16 | PC.NURSE ---
assumed care of pt at 191
[2022-01-10 19:25] LABS: COVID-19 Test Negative (Negative)
[2022-01-10 19:28] LABS: Platelet Count 130 X10*3/uL (160-400); SLIDE REVIEW VERIFIED
== END 2022-01-10 20:11 | disposition short-term general hospital (02) ==
PROVIDERS: Physician Assistant; Emergency Provider Internal Medicine
DX: S06.6X9A Traumatic subarachnoid hemorrhage with loss of consciousness of unspecified duration, initial encounter (principal); S02.91XA Unspecified fracture of skull, initial encounter for closed fracture; S00.31XA Abrasion of nose, initial encounter; F10.129 Alcohol abuse with intoxication, unspecified; M54.6 Pain in thoracic spine; R40.2420 Glasgow coma scale score 9-12, unspecified time; M54.2 Cervicalgia; R10.9 Unspecified abdominal pain; R51.9 Headache, unspecified; W01.0XXA Fall on same level from slipping, tripping and stumbling without subsequent striking against object, initial encounter; Y93.9 Activity, unspecified; Y92.480 Sidewalk as the place of occurrence of the external cause; Y99.9 Unspecified external cause status; Y90.9 Presence of alcohol in blood, level not specified; F17.200 Nicotine dependence, unspecified, uncomplicated; Z20.822 Contact with and (suspected) exposure to COVID-19; Z71.6 Tobacco abuse counseling; Z79.899 Other long term (current) drug therapy
CPT/HCPCS: 70450; 71250; 72125; 74176; 85025; 85610; 87635; 99285

== ENCOUNTER 2022-01-31 16:55 | Emergency (ER) | payer MEDICAID, SELFPAY ==
--- NOTE | ~2022-01-31 | CT_ITS ---
EXAMINATION: CT HEAD WITHOUT CONTRAST CLINICAL INFORMATION: Left facial droop question stroke COMPARISON: None TECHNIQUE: Contiguous axial imaging was performed from the skull base to vertex without intravenous administration of contrast. This CT examination was performed using dose optimization techniques as appropriate, variously including the following: *Automated exposure control *Adjustment of mA and/or kV according to patient size (this includes techniques or standardized protocols for targeted exams where dose is matched to indication/reason for exam; i.e. extremities or head) *Use of iterative reconstruction technique DLP: 727 mGy-cm FINDINGS: There is no evidence of acute intracranial hemorrhage or territorial infarction. No abnormal mass effect or midline shift is seen. Lemus to white matter differentiation is well preserved. No extra-axial fluid collections are identified. The ventricles are normal in size. There is no abnormal attenuation within the brain parenchyma. Prominent cisterna magna is noted in the posterior fossa The osseous structures and soft tissues are normal. The mastoid air cells and visualized portions of the paranasal sinuses are well aerated. CT/CT head/brain wo con IMPRESSION: No acute intracranial process seen
[2022-01-31 17:19] VITALS: BP 119/87; PULSE 114; O2SAT 97
--- NOTE | 2022-01-31 17:23 | ECG_ITS ---
Test Reason : WEAKNESS Blood Pressure : / mmHG Vent. Rate : 091 BPM Atrial Rate : 091 BPM P-R Int : 222 ms QRS Dur : 096 ms QT Int : 372 ms P-R-T Axes : 042 -08 026 degrees QTc Int : 457 ms Sinus rhythm with 1st degree A-V block Inferior infarct (cited on or before 04-NOV-2020) Abnormal ECG When compared with ECG of 28-SEP-2021 12:51, ID interval has increased Referred By: Darrel Hampton Electronically Signed By:JOSÉ MIGUEL JACOBO
[2022-01-31 17:38] VITALS: BP 119/86; PULSE 106; RESP 18; O2SAT 96; BMI 22.6
[2022-01-31] MEDS: 0.9 % Sodium Chloride 1,000 ML 999 ML IV (17:40)
[2022-01-31 18:00] LABS: MANUAL DIFF FLAG NO
--- NOTE | 2022-01-31 18:02 | ED.WEAKNESS ---
HPI - Weakness General Chief complaint: Weakness Stated complaint: STROKE ALERT /LEFT SIDE FACE DROOP Time Seen by Provider: 01/31/22 17:01 Source: patient Mode of arrival: ambulatory History of Present Illness HPI Narrative: Patient was walking on the street in the heat with history of alcohol abuse, hypertension noticed to be little off balance somebody called the EMS and patient is here when EMS saw him and noticed left facial droop which is old according to patient was seen here on 01/10 with same no other weakness per EMS patient denies any complain Related Data Previous Rx's Medication Instructions Recorded walker #1 ea 07/05/21 Allergies Allergy/AdvReac Type Severity Reaction Status Date / Time clams Allergy Severe HIVES, Verified 09/28/21 12:59 DIFFICULTY BREATHING Review of Systems Review of Systems: Yes all other systems are reviewed and are negative [facility] Past Medical History Medical History ETOH abuse High cholesterol HTN (hypertension) Social History Social History Alcohol intake: current Alcohol intake frequency: 3 or more drinks per day Alcohol type: beer and hard liquor Patient Tobacco Use Status: Current everyday Tobacco user Advance Directives: No Advance Directives Information Provided: No service: No Current occupational status: unemployed Physical Exam Vital Signs: Vital Signs: Last Vital Signs Temp 97.8 F 01/31/22 20:48 Pulse 107 H 01/31/22 20:48 Resp 16 01/31/22 20:48 BP 123/83 01/31/22 20:48 Pulse Ox 95 01/31/22 20:48 O2 Del Method 01/31/22 20:48 BMI result Body Mass Index 22.6 Appearance: Alert. Oriented X3. No acute distress. Eyes: No pallor/ icterus ENT: Pharynx normal. Oral Mucosa moist Neck: Normal inspection. Neck supple. CVS: Normal heart rate and rhythm. Pulses normal. Respiratory: No respiratory distress. Equal air entry bilateral, no wheezing/rales/rhonchi Abdomen: Soft and nontender. Bowel sounds are present, no mass palpable, no CVA tenderness Skin: Skin warm and dry. Normal skin color. Normal skin turgor. Extremities: No lower extremity edema. No calf tenderness Neuro: Oriented X 3. No motor deficit. No sensory deficit.No cerebellar signs , no left angle of the mouth droop noticed patient has very poor dentition MDM - Weakness MDM Narrative Medical decision making narrative: Left angle of the mouth droop was noted by the EMS likely from the patient poor dentition and some IM is no paresthesia or loss of wrinkles on the left side of the cheek noticed CT scan of the head is negative patient had p.o. fluids, will discharge patient home patient has a chronic CPK elevated was given 1 L fluid had food in the ER will discharge patient Lab Data Attestation: I reviewed the patient's lab results. Result diagrams: 01/31/22 17:46 01/31/22 17:46 Labs: Lab Results 01/31/22 01/31/22 Range/Units 17:46 17:46 WBC 8.6 (4.8-10.8) X10*3/uL RBC 4.80 (4.60-5.80) X10*6/uL Hgb 14.3 (14.0-18.0) g/dl Hct 42.6 (42.0-52.0) % MCV 88.8 (80.0-98.0) fL MCH 29.8 (27.0-33.0) pg MCHC 33.6 (31.0-36.0) g/dl RDW 14.5 (11.0-16.0) % Plt Count 185 D (160-400) X10*3/uL MPV 11.1 (9.4-12.4) fL Immature Gran % (Auto) 0.5 H (0.0-0.4) % Neut % (Auto) 72.3 (45-73) % Lymph % (Auto) 8.7 L (20-40) % [place] % (Auto) 14.2 H (2-11) % Eos % (Auto) 4.0 (0-4) % Baso % (Auto) 0.3 (0-2) % Lymph # (Auto) 0.8 L (1.2-4.9) X10*3/uL [place] # (Auto) 1.2 (0.1-1.2) X10*3/uL Eos # (Auto) 0.3 (0.0-0.4) X10*3/uL Baso # (Auto) 0.0 (0.0-0.2) X10*3/uL Abs Immat Gran (auto) 0.04 H (0.00-0.03) X10*3/uL Absolute Neuts (auto) 6.2 (2.0-8.3) x10*3/uL Absolute Nucleated RBC 0.000 (0.0-0.012) X10*3/uL Nucleated RBC % (auto) 0.0 (0.0-0.2) /100WBC Sodium 138 (135-145) mmol/L Potassium 4.1 (3.3-5.1) mmol/L Chloride 104 (96-108) mmol/L Carbon Dioxide 20 L (22-29) mmol/L Anion Gap 18 (12-20) BUN 42 H D (9-16) mg/dL Creatinine 1.06 (0.5-1.4) mg/dL Estim Creat Clear Calc 73.2 Estimated GFR > 60 Random Glucose 99 (60-115) mg/dL Calcium 8.7 D (8.4-10.2) mg/dL Magnesium 2.3 (1.6-2.6) mg/dL Total Bilirubin 0.7 (0.0-1.0) mg/dL AST 53 H (5-37) U/L ALT 31 (0-40) U/L Alkaline Phosphatase 62 (39-117) U/L Total Creatine Kinase 732 H D (38-174) U/L Total Protein 8.2 H (6.5-8.0) g/dL Albumin 4.2 (3.5-5.0) g/dL Ethyl Alcohol < 10 mg/dL ECG Data Attestation: I personally reviewed and interpreted this ECG as follows: Interpretation: Normal sinus rhythm heart rate 91 beats per minute of interval normal axis Q-waves inferior leads which are old no acute ischemia Discharge Plan Discharge Clinical Impression: Weakness Patient Disposition: Home, Self-Care Instructions: Weakness (ED) Additional Instructions: Drink plenty of fluids Do not drink alcohol Stay in shaded area Prescriptions: No Action (DME) walker Misc See Rx Instructions .Route Qty: 1 0RF Rx Instructions: As directed Interventions: ED Discharge Assessment Last Done: 01/31/22 21:00 Discharge Date/Time: 01/31/22 21:02
[2022-01-31 18:25] LABS: Alanine Aminotransferase 31 U/L (0-40); Albumin Level 4.2 g/dL (3.5-5.0); Alkaline Phosphatase 62 U/L (39-117); Anion Gap 18 (12-20); Aspartate Amino Transferase 53 U/L (5-37); Bilirubin Total 0.7 mg/dL (0.0-1.0); Blood Urea Nitrogen 42 mg/dL (9-16); Calcium 8.7 mg/dL (8.4-10.2); Carbon Dioxide 20 mmol/L (22-29); Chloride 104 mmol/L (96-108); Creatinine Clr Calc Pharmacy 73.2; Estimated Glomerular Filt Rate > 60; Ethanol < 10 mg/dL; Glucose Random 99 mg/dL (60-115); Magnesium 2.3 mg/dL (1.6-2.6); Potassium 4.1 mmol/L (3.3-5.1); Sodium 138 mmol/L (135-145); Total Protein 8.2 g/dL (6.5-8.0)
[2022-01-31 18:29] LABS: Basophils Percent Auto 0.3 % (0-2); Eosinophils Absolute Auto 0.3 X10*3/uL (0.0-0.4); Hematocrit 42.6 % (42.0-52.0); Hemoglobin 14.3 g/dl (14.0-18.0); Imm Gran Abs Auto 0.04 X10*3/uL (0.00-0.03); Imm Gran Pct Auto 0.5 % (0.0-0.4); Lymphocytes Absolute Auto 0.8 X10*3/uL (1.2-4.9); Lymphocytes Percent Auto 8.7 % (20-40); Mean Corpuscular HGB Conc 33.6 g/dl (31.0-36.0); Mean Corpuscular Hemoglobin 29.8 pg (27.0-33.0); Mean Corpuscular Volume 88.8 fL (80.0-98.0); Mean Platelet Volume 11.1 fL (9.4-12.4); Monocytes Absolute Auto 1.2 X10*3/uL (0.1-1.2); Monocytes Percent Auto 14.2 % (2-11); Neutrophils Absolute Auto 6.2 x10*3/uL (2.0-8.3); Neutrophils Percent Auto 72.3 % (45-73); Platelet Count 185 X10*3/uL (160-400); Red Cell Distribution Width 14.5 % (11.0-16.0); White Blood Count 8.6 X10*3/uL (4.8-10.8)
[2022-01-31 19:02] VITALS: BP 121/85; PULSE 93; RESP 16; TEMP 36.8; O2SAT 96
[2022-01-31 20:48] VITALS: BP 123/83; PULSE 107; RESP 16; TEMP 36.6; O2SAT 95
== END 2022-01-31 21:02 | disposition home or self-care (01) ==
LOC: HO.ED 19:53
PROVIDERS: Emergency Provider Internal Medicine
DX: R53.1 Weakness (principal); I10 Essential (primary) hypertension; E78.5 Hyperlipidemia, unspecified; F17.200 Nicotine dependence, unspecified, uncomplicated; F10.10 Alcohol abuse, uncomplicated; Y90.0 Blood alcohol level of less than 20 mg/100 ml
CPT/HCPCS: 70450; 80053; 82077; 82550; 83735; 85025; 93005; 99284; 99285

== ENCOUNTER 2022-02-05 16:20 | Emergency (ER) | payer MEDICAID, SELFPAY ==
--- NOTE | ~2022-02-05 | CT_ITS ---
EXAMINATION: CT HEAD WITHOUT CONTRAST CT CERVICAL SPINE WITHOUT CONTRAST CLINICAL INFORMATION: Fall. Headache and neck pain COMPARISON: Head CT 01/31/2022 and 01/10/2022 TECHNIQUE: A noncontrast CT of the head and a noncontrast CT of the cervical spine with sagittal and coronal reformats. This CT examination was performed using dose optimization techniques as appropriate, variously including the following: *Automated exposure control *Adjustment of mA and/or kV according to patient size (this includes techniques or standardized protocols for targeted exams where dose is matched to indication/reason for exam; i.e. extremities or head) *Use of iterative reconstruction technique DLP: 1118 FINDINGS: No acute intra-axial or extra-axial hemorrhage. There is a small subacute/chronic right subdural hematoma measuring up to 0.4 cm in depth which has not significantly changed since 01/31/2022. Of note, in its acute phase on 01/10/2022, this measured 0.25 cm in depth. No evidence of overt hemorrhagic expansion. The subarachnoid hemorrhage demonstrated on the 01/10/2022 study is no longer demonstrated. No acute territorial infarct. Ventricles and sulci appear normal. Preservation of yao-white matter differentiation. No mass, mass effect, or midline shift. No fracture. The mastoid air cells and visualized paranasal sinuses are clear. Normal alignment of the cervical spine. Moderate multilevel facet arthrosis on the right with slight levoconvex scoliotic positioning. No fracture. No prevertebral soft tissue swelling. CT/CT cervical spine wo con IMPRESSION: No acute intracranial abnormality. No significant change in the size or appearance of a subacute/chronic right subdural hematoma when compared with 01/31/2022. This was slightly smaller in its acute phase on 01/10/2022. No cervical spine fracture or traumatic subluxation.
[2022-02-05 16:39] VITALS: BP 102/68; PULSE 100; O2SAT 98
[2022-02-05 16:50] VITALS: BP 115/86; PULSE 82; RESP 18; TEMP 36.8; O2SAT 97; BMI 22.6
--- NOTE | 2022-02-05 17:18 | ED_ITS ---
HPI - Alcohol General Chief Complaint: Fall Stated Complaint: nausea vomiting shaking Time Seen by Provider: 02/05/22 16:39 Source: patient and EMS Mode of arrival: EMS Limitations: other (intoxication ) History of Present Illness HPI narrative: 52-year-old male with past medical history of HTN, HLD, ETOH abuse/dependence, recent ICH, presenting to ED brought in by ambulance s/p being found rolling on the ground in the grocery store parking lot. Patient reports he fell, unknown head trauma or LOC. Admits to drinking 3 beers today, last drink this a.m., denies illicit drugs. Denies headache, neck pain, back pain, CP/SOB, abdominal pain, nausea/vomiting MD complaint: alcohol intoxication and alcohol dependence Last drink: Hours (ago) Related Data Previous Rx's Medication Instructions Recorded walker #1 ea 07/05/21 Allergies Allergy/AdvReac Type Severity Reaction Status Date / Time clams Allergy Severe HIVES, Verified 02/05/22 16:39 DIFFICULTY BREATHING Review of Systems Review of Systems: Constitutional: No Fever Eyes: No Eye Pain, No Redness, No Vision Changes Cardiovascular: No Chest Pain, No SOB, No Edema, No Palpitations Respiratory: No Cough, No Dyspnea Gastrointestinal: No Nausea, No Vomiting, No Diarrhea, No Abdominal pain Genitourinary: No Dysuria, No Flank Pain, No Urinary Flow Changes Musculoskeletal: No joint pain Skin: No Skin Lesions, No rash Neuro: No Weakness, Unknown Loss of Consciousness, No Headache Psych: No Anxiety/Panic, No Depression, No Social Issues ROS limited secondary to patient's acute mental status Yes all other systems are reviewed and are negative Constitutional: Constitutional: Reports as per HPI [facility] Past Medical History Attestation statement: The following information was validated with the patient. Medical History ETOH abuse High cholesterol HTN (hypertension) Social History Social History Alcohol intake: current Alcohol intake frequency: 3 or more drinks per day Alcohol type: beer and hard liquor Patient Tobacco Use Status: Current everyday Tobacco user Advance Directives: No Advance Directives Information Provided: No service: No Current occupational status: unemployed Physical Exam ED Vital Signs: Vital Signs - 24 hr 02/05/22 16:50 Temperature 98.3 F Pulse Rate 82 Respiratory Rate 18 Blood Pressure 115/86 Pulse Oximetry 97 Oxygen Delivery Method Room Air BMI result Body Mass Index 22.6 Const Other: + EtOH odor on breath General: cooperative, no acute distress, alert, awake and intoxicated appearing Orientation/consciousness: patient oriented x3 Limitations: no limitations HENMT Head: Yes normal to inspection, Yes atraumatic, No Willams's sign and No raccoon eyes Ears: hearing grossly normal bilaterally General nose exam: Normal external nose present Face and sinus: Yes normal facial exam Throat: Yes posterior oropharynx normal Eyes General: appearance normal, both eyes and all related structures Pupils: Equal, round and reactive pupils present EOM: EOMs intact bilaterally Neck Other: No midline cervical spinous tenderness Neck: Yes normal visual inspection and Yes no meningeal signs Chest Chest palpation & inspection: normal inspection of the chest Resp Effort & Inspection: normal respiratory effort and no respiratory distress Auscultation: clear to auscultation bilaterally, no rales, no rhonchi and no w heezes Cardio Rate: regular rate Heart sounds: S1 normal heart sound present and S2 normal heart sound present GI Inspection: Yes normal to inspection Palpation (GI): Soft to palpation, nontender, no guarding and not rigid Back/Spine/Pelvis Other: No midline thoracic/lumbar spinous tenderness/step-off or deformity Skin Rashes: no rashes Wounds: no wounds Neuro Other: MARMOLEJO General: patient oriented x3, tone normal, moves all extremities and no meningeal signs Cranial nerves: Yes Equal, round and reactive pupils present Extrem General: Yes normal to inspection Course Course Course Narrative: CT head/brain wo con/CT cervical spine wo con IMPRESSION: No acute intracranial abnormality. No significant change in the size or appearance of a subacute/chronic right subdural hematoma when compared with 01/31/2022. This was slightly smaller in its acute phase on 01/10/2022. ? No cervical spine fracture or traumatic subluxation. > patient awake and alert, eating turkey sandwhich and drinking Elizabeth jaja Patient is ambulating in the ED with steady gait. Is safe for discharge home at this time MDM - Alcohol MDM Narrative Medical decision making narrative: 52-year-old male with past medical history of HTN, HLD, ETOH abuse/dependence, recent ICH, presenting to ED brought in by ambulance s/p being found rolling on the ground in the grocery store parking lot. On exam VSS, NAD, + EtOH odor on breath, No midline spinous tenderness throughout, MARMOLEJO. Unknown head trauma/fall. Concern for acute intoxication Plan: Head/C-spine CT, ethanol, observe and reassess for clinical sobriety Medical Records Attestation: I reviewed the patient's medical records. Lab Data Attestation: I reviewed the patient's lab results. Discharge Plan Discharge Clinical Impression: Alcohol intoxication Patient Disposition: Home, Self-Care Instructions: Alcohol Intoxication (ED) Additional Instructions: Avoid drinking alcohol in taking drugs as can kill you Follow-up with your doctor Prescriptions: No Action (DME) walker Misc See Rx Instructions .Route Qty: 1 0RF Rx Instructions: As directed Referrals: [facility] [Primary Care Provider] - 5 days
== END 2022-02-05 21:29 | disposition home or self-care (01) ==
PROVIDERS: Emergency Provider Emergency Medicine Emergency Medical Services
DX: F10.220 Alcohol dependence with intoxication, uncomplicated (principal); Y90.9 Presence of alcohol in blood, level not specified; I10 Essential (primary) hypertension; E78.5 Hyperlipidemia, unspecified; F17.200 Nicotine dependence, unspecified, uncomplicated
CPT/HCPCS: 70450; 72125; 99282; 99284

== ENCOUNTER 2022-02-08 13:25 | Emergency (ER) | payer MEDICAID, SELFPAY ==
[2022-02-08 13:44] LABS: Glucose, Whole Blood 108 mg/dL (60-115)
[2022-02-08 13:46] VITALS: BP 119/69; PULSE 110; O2SAT 91; BMI 22.6
[2022-02-08 13:47] VITALS: BP 118/82; PULSE 93; TEMP 36.6; O2SAT 96
--- NOTE | 2022-02-08 13:53 | ED_ITS ---
HPI - General Adult General Chief complaint: General Medical Stated complaint: Hypoglycemia, ETOH Time Seen by Provider: 02/08/22 13:53 Source: patient Mode of arrival: EMS Limitations: no limitations History of Present Illness HPI narrative: 52-year-old male who was found by bystanders, lethargic. EMS point of care glucose was 20. The patient was given oral glucose and transported to the emergency department. The patient states that he did drink 2 to 4- 25 oz beers and several shots of vodka today. He states that he does drink daily at least 2-4 beers. The patient states that he has not been eating food over the past several days. At the time my evaluation, the patient is awake, alert and he is eating. He has no complaints. Patient told me that it was recently diagnosed with lung cancer but has not followed up with an oncologist. He also states that he was diagnosed with stroke several months prior at [facility] has residual left-sided weakness. The patient has been seen frequently here in the emergency department for acute alcohol intoxication with altered mental status. He was last seen in the emergency department on 02/05/2022, he was found on the ground, altered, CT scan at that time revealed no acute finding but the patient does have a subacute/chronic right subdural hematoma which was unchanged compared to 01/31/2022. Patient was seen on 01/10/2022 with alcohol intoxication and significant head/facial trauma. At that time he had left-sided facial droop and left-sided weakness. CT scan revealed left facial fractures, skull fracture, cerebral hemorrhage secondary to a right-sided subdural hematoma with subarachnoid hemorrhage. He was transferred to [facility]uma [facility]. Related Data Previous Rx's Medication Instructions Recorded walker #1 ea 07/05/21 Allergies Allergy/AdvReac Type Severity Reaction Status Date / Time clams Allergy Severe HIVES, Verified 02/05/22 16:39 DIFFICULTY BREATHING Review of Systems Review of Systems: Yes all other systems are reviewed and are negative [facility] Past Medical History [facility] Narrative: Past medical history: Reviewed below, 01/11/2020 to head and facial trauma with skull fracture, facial fractures, right-sided subdural hematoma and subarachnoid hemorrhage. Social history: The patient smokes 1/2 pack of cigarettes per day x4 years. Patient drinks alcohol daily. He states he drinks at least 2 beers and several shots of vodka per day. He denies drug use. Medical History ETOH abuse High cholesterol HTN (hypertension) Social History Social History Alcohol intake: current Alcohol intake frequency: 3 or more drinks per day Alcohol type: beer and hard liquor Patient Tobacco Use Status: Never used Tobacco Use of substances other than those prescribed or required for medical reasons: No Advance Directives: No Advance Directives Information Provided: Yes service: No Current occupational status: unemployed Physical Exam ED Vital Signs: Vital Signs - 24 hr 02/08/22 13:47 02/08/22 15:26 Temperature 97.8 F 97.8 F Pulse Rate 93 97 Blood Pressure 118/82 122/82 Pulse Oximetry 96 97 Oxygen Delivery Method Room Air Room Air BMI result Body Mass Index 22.6 Const Other: Awake, alert, appears to be in no distress, answers all questions appropriately. Orientation/consciousness: oriented to person and oriented to place HENOR Head: Yes normal to inspection, Yes normocephalic and Yes atraumatic Ears: external ears normal General nose exam: Normal external nose present Face and sinus: Yes normal facial exam Mouth: Normal oral and palatal mucosa present Throat: Yes posterior oropharynx normal Eyes General: appearance normal, both eyes and all related structures Neck Neck: Yes normal visual inspection, Yes no lymphadenopathy, Yes trachea midline and Yes supple Chest Chest palpation & inspection: normal inspection of the chest and normal palpation of entire chest wall Resp Effort & Inspection: normal respiratory effort and able to speak in complete sentences Auscultation: clear to auscultation bilaterally Cardio Rate: regular rate Rhythm: regular rhythm Heart sounds: S1 normal heart sound present, S2 normal heart sound present and no murmurs GI Inspection: Yes normal to inspection Palpation (GI): Soft to palpation, nontender and no guarding Auscultation: normal bowel sounds General: Yes no CVA tenderness Back/Spine/Pelvis Back: no CVA tenderness Skin General skin exam: no rashes or lesions noted Neuro Other: Patient has a left facial droop (mild) cranial nerves otherwise intact General: oriented to person and oriented to place Cognition (Neuro): normal cognition Motor exam (neuro): strength not 5/5 throughout (Patient has left upper extremity and left lower extremity weakness) Extrem General: Yes normal to inspection Psych Appearance: grossly normal Speech and movement: Normal speech and movement present Affect: normal affect Attitude: cooperative Thought process: Normal thought process present Thought content: Normal thought content present Course Course Course Narrative: 52-year-old male who is brought to the emergency department for evaluation of altered mental status. Patient found lethargic by bystanders. Patient does admit to drinking alcohol today and he states he has not had any food to eat in several days. Patient had a point of care glucose of 20 prior to arrival he was given oral glucose at the time of arrival his point of care glucose was 100. Patient's physical examination does reveal left facial droop and left upper and lower extremity weakness but this is old secondary to his skull fracture/intracranial hemorrhage/subdural hematoma sustained on 01/10/2022. The patient does appear to be intoxicated but he is awake, alert and has good comprehension of why he is here in the emergency department. The patient does not want any blood testing or x-rays at this time. The patient was given food to eat. We will repeat a point of care glucose and if he is euglycemic been I will discharge him. 1618: Patient's point of care glucose was 118. The patient was able to eat food, at this point he wants to be discharged home without any further testing. Patient was given printed and verbal instructions, was advised to try to get into a detox program to help with his alcohol use disorder. Medical Decision Making Lab Data Labs: Lab Results 02/08/22 02/08/22 02/08/22 Range/Units 13:39 15:34 15:36 POC Glucose 108 118 H (60-115) mg/dL Urine Color Yellow Urine Appearance Clear Urine pH 6.0 (5.0-8.0) Ur Specific [place] 1.010 (1.005-1.025) Urine Protein Negative (Neg-Trace) mg/dL Urine Glucose (UA) Negative (Negative) mg/dL Urine Ketones Negative (Negative) mg/dL Urine Blood Negative (Negative) Urine Nitrite Negative (Negative) Ur Leukocyte Esterase Negative (Negative) Discharge Plan Discharge Clinical Impression: Hypoglycemia Alcohol intoxication Qualifiers: Complication of substance-induced condition: uncomplicated Qualified Code(s): F10.920 - Alcohol use, unspecified with intoxication, uncomplicated Malnutrition Qualifiers: Malnutrition type: unspecified type Qualified Code(s): E46 - Unspecified protein-calorie malnutrition Patient Disposition: Home, Self-Care Instructions: Non-diabetic Hypoglycemia (ED), Alcohol Use Disorder (ED) Additional Instructions: Your blood sugar was very low, this is most likely related to your alcohol use disorder and to malnutrition from just drinking alcohol and not eating food. You should get into a detox program to help with your alcohol use disorder Follow-up with your doctor in 2 days. Please return to the emergency department if your symptoms get worse or if you develop any symptoms that are concerning to you. Prescriptions: No Action (DME) walker Misc See Rx Instructions .Route Qty: 1 0RF Rx Instructions: As directed
[2022-02-08 15:26] VITALS: BP 122/82; PULSE 97; TEMP 36.6; O2SAT 97
[2022-02-08 15:43] LABS: Glucose, Whole Blood 118 mg/dL (60-115)
[2022-02-08 15:56] LABS: Appearance Urine Clear; Color Urine Yellow; Glucose Urine UA Negative (Negative); Leukocyte Esterase Urine Negative (Negative); Nitrite Urine Negative (Negative); Urine Blood Negative (Negative); Urine Ketones Negative (Negative); Urine Protein Negative (Neg-Trace)
== END 2022-02-08 17:25 | disposition home or self-care (01) ==
PROVIDERS: Emergency Provider Emergency Medicine Emergency Medical Services
DX: E16.2 Hypoglycemia, unspecified (principal); F10.920 Alcohol use, unspecified with intoxication, uncomplicated; Y90.9 Presence of alcohol in blood, level not specified; E46 Unspecified protein-calorie malnutrition; Z79.899 Other long term (current) drug therapy
CPT/HCPCS: 81003; 82947; 99282; 99284

== ENCOUNTER 2022-03-03 15:47 | Emergency (ER) | payer MEDICAID, SELFPAY ==
--- NOTE | ~2022-03-03 | CT_ITS ---
EXAMINATION: NONCONTRAST HEAD CT NONCONTRAST CERVICAL SPINE CT INDICATION INFORMATION: Status post fall, EtOH. Neck pain. COMPARISON: Head and C-spine CT 02/05/2022 TECHNIQUE: Separate noncontrast CT examinations of the head and cervical spine were performed. Coronal and sagittal images were created for each examination at the technologist workstation. This CT examination was performed using dose optimization techniques as appropriate, variously including the following: *Automated exposure control *Adjustment of mA and/or kV according to patient size (this includes techniques or standardized protocols for targeted exams where dose is matched to indication/reason for exam; i.e. extremities or head) *Use of iterative reconstruction technique DLP: 1409 mGy-cm FINDINGS: HEAD: Small right convexity subdural hematoma, measuring up to 4 mm in maximal thickness, slightly decreased in size since prior. No additional intra or extra-axial fluid collection, hemorrhage, or mass. Small jacklyn cisterna magna versus retrocerebellar arachnoid cyst noted incidentally. No midline shift or herniation. Basal cisterns are patent. Lemus-white matter differentiation is maintained. Proportional prominence of the ventricles and sulcal spaces is consistent with mild volume loss. Patchy periventricular and deep white matter hypoattenuation is consistent with mild small vessel ischemic changes. No calvarial fracture or soft tissue abnormality. Large mucous retention cyst in the left maxillary antrum. Deformity of the posterolateral wall left maxillary sinus compatible with remote injury. Mastoid air cells are normally aerated CERVICAL SPINE: Alignment: Normal. No subluxation. Vertebra: No acute fracture. No prevertebral soft tissue swelling. Degenerative disc disease: No significant. Preserved intervertebral disc heights. Multilevel right-sided facet arthrosis throughout cervical spine. Other findings: Thyroid gland is grossly unremarkable. No cervical lymphadenopathy. Incompletely imaged pleural effusion at the right lung apex. CT/CT cervical spine wo IV con IMPRESSION: 1. Small right convexity subdural hematoma measuring 4 mm in maximal thickness, decreased in size since prior. No midline shift, herniation, or additional/new intracranial hemorrhage. 2. No calvarial fracture. 3. No traumatic subluxation or acute cervical spine fracture. 4. Incompletely imaged right pleural effusion.
--- NOTE | ~2022-03-03 | CT_ITS ---
EXAMINATION: CT ABDOMEN AND PELVIS WITHOUT CONTRAST CLINICAL INFORMATION: Low back pain. Fall. COMPARISON: Previous CT of the abdomen and pelvis most recent December 2021 TECHNIQUE: Multidetector volumetric imaging was performed from the superior aspect of the liver through the pubic symphysis. Sagittal and coronal reformatted images were obtained on the technologist's workstation. This CT examination was performed using dose optimization techniques as appropriate, variously including the following: *Automated exposure control *Adjustment of mA and/or kV according to patient size (this includes techniques or standardized protocols for targeted exams where dose is matched to indication/reason for exam; i.e. extremities or head) *Use of iterative reconstruction technique DLP: 561 mGy-cm FINDINGS: LUNG BASES: There are coarse increased interstitial markings at the lung bases. This is similar to previous exam. There is a new small right pleural effusion. The heart is enlarged. There may be a small esophageal hernia. LIVER, GALLBLADDER, AND BILIARY TREE: The liver is normal in size, shape, and attenuation. No focal hepatic lesion or biliary ductal dilatation is present. The gallbladder is unremarkable with no evidence of radiopaque gallstones, gallbladder wall thickening, or obvious pericholecystic inflammatory changes. PANCREAS: Unremarkable. SPLEEN: Unremarkable. ADRENAL GLANDS: Unremarkable. KIDNEYS AND URETERS: The kidneys are normal in size, shape, and attenuation. No hydronephrosis, hydroureter, or calculi seen. No perinephric stranding. BLADDER: Unremarkable. GASTROINTESTINAL TRACT: The small and large bowel are unremarkable. The appendix is unremarkable. ABDOMINAL WALL: No significant hernia is appreciated. LYMPH NODES: Normal. VASCULAR: Unremarkable. PELVIC VISCERA: Unremarkable. OSSEOUS STRUCTURES: No acute fracture. Old mild L1 vertebral body compression fracture. Old left posterior rib fracture. L5-S1 grade 2 spondylolisthesis, spondylolysis and degenerative disc disease stable previous exam. 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 There is soft tissue thickening lateral to both hip joints over the greater trochanters, left greater than right. CT/CT abdomen pelvis wo IV con IMPRESSION: No acute findings in the abdomen or pelvis. Stable exam from December 2021. Fleischner guidelines were followed.
--- NOTE | ~2022-03-03 | CT_ITS ---
EXAMINATION: CT CHEST WITHOUT CONTRAST CLINICAL INFORMATION: Fall. Rule out rib fracture. Pain. COMPARISON: Previous chest CT December 2021 TECHNIQUE: Multidetector volumetric CT imaging of the chest was done. Axial MIP volume rendering provided. Sagittal and coronal reformatted images were obtained. This CT examination was performed using dose optimization techniques as appropriate, variously including the following: *Automated exposure control *Adjustment of mA and/or kV according to patient size (this includes techniques or standardized protocols for targeted exams where dose is matched to indication/reason for exam; i.e. extremities or head) *Use of iterative reconstruction technique DLP: 249 mGy-cm FINDINGS: LUNGS: There are coarse increased interstitial markings, areas of traction bronchiolectasis and groundglass attenuation again suggestive of interstitial lung disease/fibrotic changes. This is similar to most recent exam December 2021. There is a 5 mm left upper lobe nodule axial image 18 series 4 that is stable. MEDIASTINUM: The heart is enlarged. There is diffuse shotty mediastinal lymphadenopathy that is stable. There is no pericardial effusion. The thoracic aorta is normal in caliber. Pulmonary arteries are upper normal in size. PLEURA: There is a new small right pleural effusion. There is no left pleural effusion. There is no pneumothorax. AXILLA: There are small bilateral axillary lymph nodes. No enlarged lymph nodes or chest wall mass. UPPER ABDOMEN: Unremarkable. OSSEOUS STRUCTURES: There are old left posterior rib fractures. No acute rib fracture is seen. There is a small sclerotic lesion in the T4 vertebral body that is stable. CT/CT chest wo IV con IMPRESSION: New small right pleural effusion otherwise stable chest CT exam December 2021. Fleischner guidelines were followed.
[2022-03-03 16:03] VITALS: BP 112/77; BP 140/90; PULSE 76; PULSE 90; RESP 16; TEMP 36.4; O2SAT 100; O2SAT 99; BMI 22.6
--- NOTE | 2022-03-03 16:04 | ED.FALL ---
HPI - Fall General Chief Complaint: Back Pain/Injury Stated Complaint: low back pain s/p fall Time Seen by Provider: 03/03/22 16:03 Source: patient Mode of arrival: ambulatory Limitations: no limitations History of Present Illness HPI Narrative: 51-year-old male history of alcohol abuse, hypertension, hyperlipidemia brought in by ambulance for alcohol intoxication, unwhitnessed fall and head strike.? According to patient he was walking down a hill, fell backwards hitting his head, he tells me he did not lose consciousness, reporting headache, lower back pain status post fall. Patient tells me he is not on blood thinners. He reports that he was drinking earlier today only 1 beer. He tells me he was unable to stand up by himself therefore 911 was called by by standard. Patient was not on the ground for a long period of time according to him. Patient denies chest pain, shortness of breath, nausea, vomiting, abdominal pain, vision changes, dizziness, weakness. Patient has a history of left-sided deficits secondary to a CVA on 01/10/2022. He tells me1 this is his baseline. MD complaint: fall Related Data Previous Rx's Medication Instructions Recorded walker #1 ea 07/05/21 lidocaine 5 % topical patch 1 patch topical DAILY PRN pain #15 03/03/22 ea Allergies Allergy/AdvReac Type Severity Reaction Status Date / Time clams Allergy Severe HIVES, Verified 03/03/22 16:03 DIFFICULTY BREATHING Review of Systems Review of Systems: Constitutional : No Weight loss, No Fever, No Chills, No Fatigue, No Malaise ENT/Mouth : No sore throat, No Rhinorrhea Eyes: No Eye Pain, No Swelling, No Redness Cardiovascular : No Chest Pain, No SOB, No Dyspnea on Exertion, No Orthopnea, No Edema, No Palpitations Respiratory : No Cough, No Sputum, No Wheezing Gastrointestinal : No Nausea, No Vomiting, No Diarrhea, No Constipation, No abdominal Pain, No Hematochezia, No Melena Genitourinary : No Dysuria, No Urinary Frequency, No Hematuria, Musculoskeletal : + joint pain, No Myalgias, No Joint Swelling Skin : No Skin Lesions, No rash Neuro : No Weakness, No Numbness, No Dizziness, + Headache Psych : No Anxiety/Panic, No Depression All other systems reviewed and are negative Yes all other systems are reviewed and are negative [facility] Past Medical History Attestation statement: The following information was validated with the patient. Source: old records reviewed and nursing notes reviewed Medical History ETOH abuse High cholesterol HTN (hypertension) Social History Social History Alcohol intake: current Alcohol intake frequency: 3 or more drinks per day Alcohol type: beer and hard liquor Patient Tobacco Use Status: Never used Tobacco Advance Directives: No Advance Directives Information Provided: Yes service: No Current occupational status: unemployed Physical Exam Vital Signs: Vital Signs: Last Vital Signs Temp 97.8 F 03/03/22 20:25 Pulse 79 03/03/22 20:25 Resp 16 03/03/22 20:25 BP 112/75 03/03/22 20:25 Pulse Ox 98 03/03/22 20:25 O2 Del Method 03/03/22 20:25 Oxygen Flow Rate 2 03/03/22 16:03 BMI result Body Mass Index 22.6 vss Appearance: Alert.? Oriented X3.? No acute distress.? Head: Normocephalic, atraumatic, no step-offs or deformities. Slight old left sided facial droop ( old as of 01/10/2022) Eyes: Pupils equal, round and reactive to light.? ENT: Pharynx normal.? Neck: Normal inspection.? Neck supple.?In cervical collar CVS: Normal heart rate and rhythm.? Pulses normal.? Respiratory: No respiratory distress.? Breath sounds normal.?No flail chest Abdomen: Soft and nontender.? Skin: Skin warm and dry.? Normal skin color.? Normal skin turgor.? Extremities: No lower extremity edema.? No calf ttp. 5/5 strength to right upper and lower extremities and 4/5 to left upper and lower extremiteis. Back: No midline tenderness, no C-spine tenderness, full range of motion, no CVA tenderness bilaterally Neuro: Oriented X 3.? No motor deficit.? No sensory deficit. CN 2-12 intact. No saddle paresthesias. No pronator drift. Normal rapid alternating movements GCS 15 Course Reevaluation(s) Reevaluation #1: CBC appears to be at patient's baseline. Chemistry is WNL. CPK elevated at 296, likely due to dehydration and patient spent some time on the ground s/p fall. Ethanol 137. COVID-[address] results show 4mm old subdural hematoma, smaller in size since prior. No acute findings/fractures. CT chest shows small R pleural effusion, stable from 12/2021 scan. No acute findings on exam. Time: 18:00 Reevaluation #2: At this time C-collar cleared. Patient still complaining of back pain likely lumbar strain, will give morphine and lidoderm patch. Patient ambulating w/ steady gait normal coordination. UA pending Time: 20:04 Reevaluation #3: UA clean patient reporting improvement in pain, patient does not want morphine or pain medication. Patient feeling better. Patient eating and drinking. Patient's GCS remains 15, patient appears comfortable, no acute distress, following commands. I suspect patient fell secondary to EtOH. This time patient will be discharged home advised to return with new or worsening symptoms. Comfortable with discharge home. Time: 21:21 MDM - Fall MDM Narrative Medical decision making narrative: 1618 52 yo M presents s/p trip and fall down a hill w/ ETOH on board, reprots headache and lower back pain PE appears to be at patients baseline, no acute findings. GCS 15 Likley headache secondary to concussion unlikley stroke, ICH, posterior stroke, epidural abcess and cauda equina. Denies preceding sx, unlikely pe or acs. Plan- imaging for trauma protocol, labs, urine, islas, etoh Medical Records Attestation: I reviewed the patient's medical records. Lab Data Attestation: I reviewed the patient's lab results. Result diagrams: 03/03/22 17:38 03/03/22 17:38 Labs: Lab Results 03/03/22 03/03/22 03/03/22 Range/Units 17:38 17:38 17:38 WBC 4.1 L (4.8-10.8) X10*3/uL RBC 4.21 L (4.60-5.80) X10*6/uL Hgb 12.5 L (14.0-18.0) g/dl Hct 37.7 L (42.0-52.0) % MCV 89.5 (80.0-98.0) fL MCH 29.7 (27.0-33.0) pg MCHC 33.2 (31.0-36.0) g/dl RDW 15.2 (11.0-16.0) % Plt Count 165 (160-400) X10*3/uL MPV 10.7 (9.4-12.4) fL Immature Gran % (Auto) 0.2 (0.0-0.4) % Neut % (Auto) 54.9 (45-73) % Lymph % (Auto) 22.2 (20-40) % [place] % (Auto) 14.8 H (2-11) % Eos % (Auto) 7.4 H (0-4) % Baso % (Auto) 0.5 (0-2) % Lymph # (Auto) 0.9 L (1.2-4.9) X10*3/uL [place] # (Auto) 0.6 (0.1-1.2) X10*3/uL Eos # (Auto) 0.3 (0.0-0.4) X10*3/uL Baso # (Auto) 0.0 (0.0-0.2) X10*3/uL Abs Immat Gran (auto) 0.01 (0.00-0.03) X10*3/uL Absolute Neuts (auto) 2.2 (2.0-8.3) x10*3/uL Absolute Nucleated RBC 0.000 (0.0-0.012) X10*3/uL Nucleated RBC % (auto) 0.0 (0.0-0.2) /100WBC Sodium 143 (135-145) mmol/L Potassium 4.0 (3.3-5.1) mmol/L Chloride 111 H (96-108) mmol/L Carbon Dioxide 19 L (22-29) mmol/L Anion Gap 17 (12-20) BUN 14 D (9-16) mg/dL Creatinine 0.68 (0.5-1.4) mg/dL Estim Creat Clear Calc 114.1 Estimated GFR > 60 POC Glucose (60-115) mg/dL Random Glucose 91 (60-115) mg/dL Calcium 8.1 L D (8.4-10.2) mg/dL Magnesium 2.3 (1.6-2.6) mg/dL Total Bilirubin 0.3 (0.0-1.0) mg/dL AST 28 D (5-37) U/L ALT 22 (0-40) U/L Alkaline Phosphatase 55 (39-117) U/L Total Creatine Kinase 296 H D (38-174) U/L Total Protein 7.3 (6.5-8.0) g/dL Albumin 3.6 (3.5-5.0) g/dL Urine Color Urine Appearance Urine pH (5.0-9.0) Ur Specific [place] (1.005-1.025) Urine Protein (Neg-Trace) mg/dL Urine Glucose (UA) (Negative) mg/dL Urine Ketones (Negative) mg/dL Urine Blood (Negative) Urine Nitrite (Negative) Ur Leukocyte Esterase (Negative) Urine Opiates Screen (Not Detect) Urine Fentanyl Screen (Not Detect) Ur Barbiturates Screen (Not Detect) Ur Phencyclidine Scrn (Not Detect) Ur Amphetamines Screen (Not Detect) U Benzodiazepines Scrn (Not Detect) Urine Cocaine Screen (Not Detect) U Marijuana (THC) Screen (Not Detect) Ethyl Alcohol 137 mg/dL COVID-19 (TYE) Negative (Negative) COVID-19 Clin Com See Note 03/03/22 03/03/22 03/03/22 Range/Units 20:23 20:27 20:27 WBC (4.8-10.8) X10*3/uL RBC (4.60-5.80) X10*6/uL Hgb (14.0-18.0) g/dl Hct (42.0-52.0) % MCV (80.0-98.0) fL MCH (27.0-33.0) pg MCHC (31.0-36.0) g/dl RDW (11.0-16.0) % Plt Count (160-400) X10*3/uL MPV (9.4-12.4) fL Immature Gran % (Auto) (0.0-0.4) % Neut % (Auto) (45-73) % Lymph % (Auto) (20-40) % [place] % (Auto) (2-11) % Eos % (Auto) (0-4) % Baso % (Auto) (0-2) % Lymph # (Auto) (1.2-4.9) X10*3/uL [place] # (Auto) (0.1-1.2) X10*3/uL Eos # (Auto) (0.0-0.4) X10*3/uL Baso # (Auto) (0.0-0.2) X10*3/uL Abs Immat Gran (auto) (0.00-0.03) X10*3/uL Absolute Neuts (auto) (2.0-8.3) x10*3/uL Absolute Nucleated RBC (0.0-0.012) X10*3/uL Nucleated RBC % (auto) (0.0-0.2) /100WBC Sodium (135-145) mmol/L Potassium (3.3-5.1) mmol/L Chloride (96-108) mmol/L Carbon Dioxide (22-29) mmol/L Anion Gap (12-20) BUN (9-16) mg/dL Creatinine (0.5-1.4) mg/dL Estim Creat Clear Calc Estimated GFR POC Glucose 80 (60-115) mg/dL Random Glucose (60-115) mg/dL Calcium (8.4-10.2) mg/dL Magnesium (1.6-2.6) mg/dL Total Bilirubin (0.0-1.0) mg/dL AST (5-37) U/L ALT (0-40) U/L Alkaline Phosphatase (39-117) U/L Total Creatine Kinase (38-174) U/L Total Protein (6.5-8.0) g/dL Albumin (3.5-5.0) g/dL Urine Color Yellow Urine Appearance Clear Urine pH 5.5 (5.0-9.0) Ur Specific [place] 1.010 (1.005-1.025) Urine Protein Negative (Neg-Trace) mg/dL Urine Glucose (UA) Negative (Negative) mg/dL Urine Ketones Negative (Negative) mg/dL Urine Blood Negative (Negative) Urine Nitrite Negative (Negative) Ur Leukocyte Esterase Negative (Negative) Urine Opiates Screen Not Detected (Not Detect) Urine Fentanyl Screen Not Detected (Not Detect) Ur Barbiturates Screen Not Detected (Not Detect) Ur Phencyclidine Scrn Not Detected (Not Detect) Ur Amphetamines Screen Not Detected (Not Detect) U Benzodiazepines Scrn Not Detected (Not Detect) Urine Cocaine Screen Not Detected (Not Detect) U Marijuana (THC) Screen Not Detected (Not Detect) Ethyl Alcohol mg/dL COVID-19 (TYE) (Negative) COVID-19 Clin Com Critical Care Time Critical Care Time Critical Care Time: No Discharge Plan Discharge Clinical Impression: Strain of lumbar region, Fall, Headache, Alcohol intoxication Patient Disposition: Home, Self-Care Instructions: Fall Prevention for Older Adults (ED), Abuse of Alcohol (ED), Acute Headache (ED), Acute Low Back Pain (ED), Fall Prevention (ED) Additional Instructions: Take your medications as prescribed. If you were prescribed antibiotics today, it is important that you take your medication to their entirety, do not skip any doses, do not finish them early. Follow-up with your primary care provider this week. Return to the emergency department with new or worsening symptoms. Such as fevers, chills, chest pain, shortness of breath, nausea, vomiting, dizziness, headache, vision changes, lethargy, urinary/bowel incontinence/retention, weakness, loss of sensation to inner thighs. In case of emergency call 911 Can take ibuprofen every 6 hours, Tylenol 4 as needed for pain or discomfort. Lidoderm patches of been sent to your pharmacy please use these as necessary for lower back pain. Prescriptions: New lidocaine 5 % adhesive patch,medicated 1 patch topical DAILY PRN (Reason: pain) Qty: 15 0RF Rx Instructions: leave on most painful area for up to 12 hrs No Action (DME) nathaniel Arriaga See Rx Instructions .Route Qty: 1 0RF Rx Instructions: As directed Referrals: [facility] [Primary Care Provider] - 2 days Stand Alone Forms: Work/School Release
--- NOTE | 2022-03-03 16:06 | ECG_ITS ---
Test Reason : back pain Blood Pressure : / mmHG Vent. Rate : 077 BPM Atrial Rate : 077 BPM P-R Int : 194 ms QRS Dur : 090 ms QT Int : 418 ms P-R-T Axes : 055 -19 039 degrees QTc Int : 473 ms Normal sinus rhythm Inferior infarct Abnormal ECG When compared with ECG of 31-JAN-2022 18:46, NH interval has decreased Referred By: Martina Trimble Electronically Signed By:SEVEN LEUNG
[2022-03-03 16:14] VITALS: O2SAT 97
[2022-03-03 17:30] VITALS: BP 112/84; PULSE 76; RESP 16; TEMP 36.6; O2SAT 98
[2022-03-03 17:41] LABS: MANUAL DIFF FLAG NO
[2022-03-03 17:49] LABS: Basophils Percent Auto 0.5 % (0-2); Eosinophils Absolute Auto 0.3 X10*3/uL (0.0-0.4); Eosinophils Percent Auto 7.4 % (0-4); Hematocrit 37.7 % (42.0-52.0); Hemoglobin 12.5 g/dl (14.0-18.0); Imm Gran Abs Auto 0.01 X10*3/uL (0.00-0.03); Imm Gran Pct Auto 0.2 % (0.0-0.4); Lymphocytes Absolute Auto 0.9 X10*3/uL (1.2-4.9); Lymphocytes Percent Auto 22.2 % (20-40); Mean Corpuscular HGB Conc 33.2 g/dl (31.0-36.0); Mean Corpuscular Hemoglobin 29.7 pg (27.0-33.0); Mean Corpuscular Volume 89.5 fL (80.0-98.0); Mean Platelet Volume 10.7 fL (9.4-12.4); Monocytes Absolute Auto 0.6 X10*3/uL (0.1-1.2); Monocytes Percent Auto 14.8 % (2-11); Neutrophils Absolute Auto 2.2 x10*3/uL (2.0-8.3); Neutrophils Percent Auto 54.9 % (45-73); Platelet Count 165 X10*3/uL (160-400); Red Blood Count 4.21 X10*6/uL (4.60-5.80); Red Cell Distribution Width 15.2 % (11.0-16.0); White Blood Count 4.1 X10*3/uL (4.8-10.8)
[2022-03-03 18:03] LABS: COVID-19 Test Negative (Negative); IDNOW Serial# 16C4AD1C
[2022-03-03 18:06] LABS: Alanine Aminotransferase 22 U/L (0-40); Albumin Level 3.6 g/dL (3.5-5.0); Alkaline Phosphatase 55 U/L (39-117); Anion Gap 17 (12-20); Aspartate Amino Transferase 28 U/L (5-37); Bilirubin Total 0.3 mg/dL (0.0-1.0); Blood Urea Nitrogen 14 mg/dL (9-16); Calcium 8.1 mg/dL (8.4-10.2); Carbon Dioxide 19 mmol/L (22-29); Chloride 111 mmol/L (96-108); Creatinine Clr Calc Pharmacy 114.1; Estimated Glomerular Filt Rate > 60; Ethanol 137 mg/dL; Glucose Random 91 mg/dL (60-115); Magnesium 2.3 mg/dL (1.6-2.6); Sodium 143 mmol/L (135-145); Total Protein 7.3 g/dL (6.5-8.0)
[2022-03-03 20:25] VITALS: BP 112/75; PULSE 79; RESP 16; TEMP 36.6; O2SAT 98
[2022-03-03 20:33] LABS: Glucose, Whole Blood 80 mg/dL (60-115)
[2022-03-03 20:35] LABS: Appearance Urine Clear; Color Urine Yellow; Glucose Urine UA Negative (Negative); Leukocyte Esterase Urine Negative (Negative); Nitrite Urine Negative (Negative); PH 5.5 (5.0-9.0); Urine Blood Negative (Negative); Urine Ketones Negative (Negative); Urine Protein Negative (Neg-Trace)
--- NOTE | 2022-03-03 20:42 | PC.NURSE ---
PATIENT WAS GIVEN DINNER AND CL SILVIA .
[2022-03-03 20:50] LABS: Amphetamine Screen Urine Not Detected (Not Detect); Barbiturates, Urine Not Detected (Not Detect); Benzodiazepines Screen Urine Not Detected (Not Detect); Cannabinoid Screen Urine Not Detected (Not Detect); Cocaine Screen Urine Not Detected (Not Detect); Fentanyl, urine Not Detected (Not Detect); Opiate Screen Urine Not Detected (Not Detect); Phencyclidine Screen Urine Not Detected (Not Detect)
[2022-03-03] MEDS: Lidocaine 4 % Patch ADH..PATCH 1 PATCH TRANSDERMA (21:07)
== END 2022-03-03 22:03 | disposition home or self-care (01) ==
PROVIDERS: Physician Assistant; Emergency Provider Internal Medicine
DX: M54.50 Low back pain, unspecified (principal); R51.9 Headache, unspecified; R10.9 Unspecified abdominal pain; M54.2 Cervicalgia; F10.129 Alcohol abuse with intoxication, unspecified; I10 Essential (primary) hypertension; Y90.6 Blood alcohol level of 120-199 mg/100 ml; Z20.822 Contact with and (suspected) exposure to COVID-19; Z79.899 Other long term (current) drug therapy
CPT/HCPCS: 70450; 71250; 72125; 74176; 80053; 80307; 81003; 82077; 82550; 82947; 83735; 85025; 87635; 93005; 96374; 96375; 99284

== ENCOUNTER 2022-03-12 11:30 | Emergency (ER) | payer MEDICAID, SELFPAY ==
--- NOTE | ~2022-03-12 | CT_ITS ---
EXAMINATION: CT CERVICAL SPINE WITHOUT CONTRAST CLINICAL INFORMATION: Fall EtOH COMPARISON: 03/03/2022 TECHNIQUE: Axial imaging with coronal and sagittal reformatted images. This CT examination was performed using dose optimization techniques as appropriate, variously including the following: *Automated exposure control *Adjustment of mA and/or kV according to patient size (this includes techniques or standardized protocols for targeted exams where dose is matched to indication/reason for exam; i.e. extremities or head) *Use of iterative reconstruction technique DLP: 427 mGy-cm FINDINGS: No acute fracture or dislocation. CT/CT cervical spine wo IV con IMPRESSION: No acute fracture or dislocation cervical spine. Fleischner guidelines were followed.
--- NOTE | ~2022-03-12 | CT_ITS ---
EXAMINATION: CT HEAD WITHOUT CONTRAST CLINICAL INFORMATION: Headache, status post fall. COMPARISON: Head CT dated 03/03/2022. TECHNIQUE: Contiguous axial imaging was performed from the skullbase to vertex without intravenous administration of contrast. This CT examination was performed using dose optimization techniques as appropriate, variously including the following: *Automated exposure control *Adjustment of mA and/or kV according to patient size (this includes techniques or standardized protocols for targeted exams where dose is matched to indication/reason for exam; i.e. extremities or head) *Use of iterative reconstruction technique DLP: 1658 mGy-cm. FINDINGS: There is no evidence of acute intracranial hemorrhage or territorial infarction. No abnormal mass effect or midline shift is seen. Lemus to white matter differentiation is well preserved. A small isodense subdural collection again overlies the right frontal convexity without mass effect, otherwise unchanged. The ventricles are normal in size. There is no abnormal attenuation within the brain parenchyma. The osseous structures and soft tissues are normal. The mastoid air cells and visualized portions of the paranasal sinuses are fairly well aerated. CT/CT head/brain wo IV con IMPRESSION: No acute intracranial pathology. Stable small right frontal isodense subdural collection as compared to prior imaging.
--- NOTE | ~2022-03-12 | CT_ITS ---
EXAMINATION: CT LUMBAR SPINE WITHOUT CONTRAST CLINICAL INFORMATION: Back pain after fall. COMPARISON: X-ray lumbar spine dated 10/01/2021. TECHNIQUE: Multidetector helical imaging acquired in the axial plane with generation of reformatted acquisitions. This CT examination was performed using dose optimization techniques as appropriate, variously including the following: *Automated exposure control *Adjustment of mA and/or kV according to patient size (this includes techniques or standardized protocols for targeted exams where dose is matched to indication/reason for exam; i.e. extremities or head) *Use of iterative reconstruction technique DLP; 489 mGy-cm FINDINGS: No acute fracture is seen. There are osseous fusion changes and severe disc space narrowing at the L5-S1 level where there is a grade 3 anterolisthesis and chronic L5 pars defects. Significant bilateral foraminal encroachment evident at the L5-S1 level as well without central canal stenosis. Mild anterior wedging deformity of the L1 vertebral body is either developmental or chronic. There is a mild disc bulge at the L1-L2 level with mild facet arthropathy. Bridging anterior endplate ossification noted at the T12-L1 level. There is bulky left lateral endplate spurring at the L2-L3 level with mild left foraminal encroachment. Mild spondylitic changes evident at the L3-L4 and L4-L5 levels. The paraspinal soft tissues are unremarkable. Sigmoid colonic diverticulosis partially visualized. There are moderate degenerative changes of the right greater than left sacroiliac joints with ossific spurring and vacuum phenomenon. CT/CT lumbar spine wo IV con IMPRESSION: No acute osseous abnormality. Endplate osteophytes at multiple levels resulting in fusion changes laterally between the disc spaces. Grade 3 anterolisthesis and severe loss of disc height at the L5-S1 level with chronic L5 pars defects and [id number] bilateral foraminal narrowing. No large disc protrusion or central canal stenosis.
[2022-03-12 11:40] VITALS: BP 112/64; BP 118/76; PULSE 110; PULSE 94; RESP 16; TEMP 37.1; O2SAT 98; BMI 24.5
--- NOTE | 2022-03-12 12:05 | ED.ALCOHOL ---
HPI - Alcohol General Chief Complaint: ETOH/Substance Use <BETH Banks - Last Filed: 03/12/22 17:51> Stated Complaint: etoh &back pain. VSS <BETH Banks - Last Filed: 03/12/22 17:51> Time Seen by Provider: 03/12/22 11:36 <BETH Banks - Last Filed: 03/12/22 17:51> Source: patient and EMS <BETH Banks - Last Filed: 03/12/22 17:51> Mode of arrival: EMS <BETH Banks - Last Filed: 03/12/22 17:51> Limitations: other (Patient acutely intoxicated.) <BETH Banks Last Filed: 03/12/22 17:51> History of Present Illness HPI narrative: This is a 52-year-old male presenting to the emergency department via ambulance for acute alcohol intoxication. Patient tells me that he only drank 1 beer, he tells me he fell and hit his head, he tells me he did not lose consciousness, he is not complaining of headache, vision changes, dizziness, weakness. He is not on blood thinners. Patient appears acutely intoxicated, poor historian, slurring his words, smells like alcohol. Unable to give me an accurate review of systems. Denies medical complaints at this time however. Denies SI and HI. Denies other drug use. Upon arrival GCS of 15, NIH stroke scale negative. <BETH Banks - Last Filed: 03/12/22 17:51> Related Data Home Medications: Previous Rx's Medication Instructions Recorded walker #1 ea 07/05/21 lidocaine 5 % topical patch 1 patch topical DAILY PRN pain #15 03/03/22 ea <BETH Banks Last Filed: 03/12/22 17:51> Allergies/Adverse Reactions: Allergies Allergy/AdvReac Type Severity Reaction Status Date / Time clams Allergy Severe HIVES, Verified 03/03/22 16:03 DIFFICULTY BREATHING <BETH Banks Last Filed: 03/12/22 17:51> Review of Systems Review of Systems: Constitutional : No Weight loss, No Fever, No Chills, No Fatigue, No Malaise ENT/Mouth : No sore throat, No Rhinorrhea Eyes: No Eye Pain, No Swelling, No Redness Cardiovascular : No Chest Pain, No SOB, No Dyspnea on Exertion, No Orthopnea, No Edema, No Palpitations Respiratory : No Cough, No Sputum, No Wheezing Gastrointestinal : No Nausea, No Vomiting, No Diarrhea, No Constipation, No abdominal Pain, No Hematochezia, No Melena Genitourinary : No Dysuria, No Urinary Frequency, No Hematuria, Musculoskeletal : No joint pain, No Myalgias, No Joint Swelling Skin : No Skin Lesions, No rash Neuro : No Weakness, No Numbness, No Dizziness, No Headache Psych : No Anxiety/Panic, No Depression Heme/Lymph: No Bruising, No Bleeding,No Lymphadenopathy Endocrine : No Polyuria, No Polydipsia All other systems reviewed and are negative <BETH Banks - Last Filed: 03/12/22 17:51> Yes all other systems are reviewed and are negative <BETH Banks - Last Filed: 03/12/22 17:51> [facility] Past Medical History Attestation statement: The following information was validated with the patient. <BETH Banks - Last Filed: 03/12/22 17:51> Source: old records reviewed and nursing notes reviewed <BETH Banks - Last Filed: 03/12/22 17:51> Medical History: Medical History ETOH abuse High cholesterol HTN (hypertension) <BETH Banks - Last Filed: 03/12/22 17:51> Social History Social History: Social History Alcohol intake: current Alcohol intake frequency: 3 or more drinks per day Alcohol type: beer and hard liquor Patient Tobacco Use Status: Never used Tobacco Advance Directives: No Advance Directives Information Provided: No service: No Current occupational status: unemployed <BETH Banks Last Filed: 03/12/22 17:51> Physical Exam ED Vital Signs: Vital Signs - 24 hr 03/12/22 11:40 Temperature 98.7 F Pulse Rate 94 Respiratory Rate 16 Blood Pressure 118/76 Pulse Oximetry 98 Oxygen Delivery Method Room Air BMI result Body Mass Index 24.5 Vital signs stable <BETH Banks - Last Filed: 03/12/22 17:51> Vital Signs - 24 hr 03/12/22 11:40 Temperature 98.7 F Pulse Rate 94 Respiratory Rate 16 Blood Pressure 118/76 Pulse Oximetry 98 Oxygen Delivery Method Room Air BMI result Body Mass Index 24.5 <North Barton MD - Last Filed: 03/12/22 22:19> Appearance: Alert.? Oriented X3.? No acute distress.? Smells like alcohol. Head: Normocephalic, atraumatic, no step-offs or deformities Eyes: Pupils equal, round and reactive to light.? Injected scalera bilaterally. ENT: Pharynx normal.? Neck: Normal inspection.? Neck supple.? CVS: Normal heart rate and rhythm.? Pulses normal.? Respiratory: No respiratory distress.? Breath sounds normal.? Abdomen: Soft and nontender.? Skin: Skin warm and dry.? Normal skin color.? Normal skin turgor.? Extremities: No lower extremity edema.? No calf ttp. 5/5 strength to bilateral upper and lower extremities Back: No midline tenderness, no C-spine tenderness, full range of motion, no CVA tenderness bilaterally Neuro: Oriented X 3.? No motor deficit.? No sensory deficit. CN 2-12 intact . No saddle paresthesias. <BETH Banks - Last Filed: 03/12/22 17:51> Course Reevaluation(s) Reevaluation #1: Patient difficult stick. Nursing staff attempted however unable to get his labs. They tried again and patient refusing at this time. <BETH Banks - Last Filed: 03/12/22 17:51> Time: 13:12 <BETH Banks - Last Filed: 03/12/22 17:51> Reevaluation #2: CT of the head with no acute findings, there is a stable small right frontal isodense subdural collection as compared to prior imaging however no acute changes. No acute fracture dislocation the cervical spine. CT of the lumbar spine with no acute osseous abnormality. There is anterior lithiasis and severe loss of disc height between L5-S1. No large disc protrusion or central canal stenosis. Again low suspicion for cauda equina or epidural abscess on this patient. Labs pending at this time. Sign out given to Ai DELEON pending labs, ambulation trial, repeat neuro and reevaluation of patient. If all is normal suspected dc home. <BETH Banks - Last Filed: 03/12/22 17:51> Time: 17:49 <BETH Banks - Last Filed: 03/12/22 17:51> Reevaluation #3: Urine toxicology was negative. The patient did not have any blood work drawn on him. He is currently awake and alert, he is eating a sandwich. Nursing staff knows the patient and states that he has an ataxic gait at his baseline in that he often uses a shopping cart to walk. Patient was walked here in the emergency department and he appears to be at his baseline therefore he was discharged home. <North Barton MD - Last Filed: 03/12/22 22:19> MDM - Alcohol MDM Narrative Medical decision making narrative: 1209 52-year-old male presents with acute alcohol intoxication, reports fall without loss of consciousness he does report head strike. Alert and oriented x4 on arrival. Smells like alcohol. Physical examination with an acute acutely intoxicated individual, alert and oriented x4, nonfocal neuro exam, bilateral sclera injected. Regular rate and rhythm, lungs clear. Abdomen soft nontender nondistended. Likely alcohol intoxication will rule out intracranial hemorrhage although unlikely as patient has a unremarkable neuro exam. Will obtain basic labs. <BETH Banks - Last Filed: 03/12/22 17:51> Medical Records Attestation: I reviewed the patient's medical records. <BETH Banks - Last Filed: 03/12/22 17:51> Lab Data Attestation: I reviewed the patient's lab results. <BETH Banks - Last Filed: 03/12/22 17:51> Labs: Lab Results 03/12/22 Range/Units 12:14 Urine Opiates Screen Not Detected (Not Detect) Urine Fentanyl Screen Not Detected (Not Detect) Ur Barbiturates Screen Not Detected (Not Detect) Ur Phencyclidine Scrn Not Detected (Not Detect) Ur Amphetamines Screen Not Detected (Not Detect) U Benzodiazepines Scrn Not Detected (Not Detect) Urine Cocaine Screen Not Detected (Not Detect) U Marijuana (THC) Screen Not Detected (Not Detect) <BETH Banks Last Filed: 03/12/22 17:51> Lab Results 03/12/22 Range/Units 12:14 Urine Opiates Screen Not Detected (Not Detect) Urine Fentanyl Screen Not Detected (Not Detect) Ur Barbiturates Screen Not Detected (Not Detect) Ur Phencyclidine Scrn Not Detected (Not Detect) Ur Amphetamines Screen Not Detected (Not Detect) U Benzodiazepines Scrn Not Detected (Not Detect) Urine Cocaine Screen Not Detected (Not Detect) U Marijuana (THC) Screen Not Detected (Not Detect) <North Barton MD - Last Filed: 03/12/22 22:19> Critical Care Time Critical Care Time Critical Care Time: No <BETH Banks Last Filed: 03/12/22 17:51> Discharge Plan Discharge Clinical Impression: Alcoholic intoxication, Fall, Concussion, Back pain <BETH Banks Last Filed: 03/12/22 17:51> Patient Disposition: Still a Patient <BETH Banks Last Filed: 03/12/22 17:51> Instructions: Concussion (ED), Alcohol Intoxication (ED), Post Concussion Syndrome (ED) <BETH Banks Last Filed: 03/12/22 17:51> Additional Instructions: Take your medications as prescribed. If you were prescribed antibiotics today, it is important that you take your medication to their entirety, do not skip any doses, do not finish them early. Follow-up with your primary care provider this week. Return to the emergency department with new or worsening symptoms. Such as fevers, chills, chest pain, shortness of breath, nausea, vomiting, dizziness, headache, vision changes, lethargy In case of emergency call 911 <BETH Banks Last Filed: 03/12/22 17:51> Prescriptions: No Action (DME) walker Misc See Rx Instructions .Route Qty: 1 0RF Rx Instructions: As directed lidocaine 5 % adhesive patch,medicated 1 patch topical DAILY PRN (Reason: pain) Qty: 15 0RF Rx Instructions: leave on most painful area for up to 12 hrs <BETH Banks - Last Filed: 03/12/22 17:51> Referrals: Janny Salazar [Registered Nurse] - 2 days <BETH Banks - Last Filed: 03/12/22 17:51>
[2022-03-12 12:49] LABS: Amphetamine Screen Urine Not Detected (Not Detect); Barbiturates, Urine Not Detected (Not Detect); Benzodiazepines Screen Urine Not Detected (Not Detect); Cannabinoid Screen Urine Not Detected (Not Detect); Cocaine Screen Urine Not Detected (Not Detect); Fentanyl, urine Not Detected (Not Detect); Opiate Screen Urine Not Detected (Not Detect); Phencyclidine Screen Urine Not Detected (Not Detect)
--- NOTE | 2022-03-12 12:59 | PC.NURSE ---
pt refusing lab draw at this time, will re-attempt when pt is more calm and cooperative
== END 2022-03-12 22:26 | disposition still patient (30) ==
PROVIDERS: Physician Assistant; Emergency Provider Emergency Medicine Emergency Medical Services
DX: F10.120 Alcohol abuse with intoxication, uncomplicated (principal); Y90.9 Presence of alcohol in blood, level not specified; S06.0X0A Concussion without loss of consciousness, initial encounter; W19.XXXA Unspecified fall, initial encounter; M54.50 Low back pain, unspecified; I10 Essential (primary) hypertension; E78.00 Pure hypercholesterolemia, unspecified; Y93.9 Activity, unspecified; Y92.9 Unspecified place or not applicable; Y99.9 Unspecified external cause status
CPT/HCPCS: 70450; 72125; 72131; 80307; 99283; 99284

== ENCOUNTER 2022-03-22 17:06 | Emergency (ER) | payer MEDICAID, SELFPAY ==
--- NOTE | 2022-03-22 17:17 | ED.ALCOHOL ---
HPI - Alcohol General Chief Complaint: ETOH/Substance Use Stated Complaint: ETOH Source: patient and EMS Mode of arrival: EMS Limitations: no limitations History of Present Illness HPI narrative: 52-year-old male presents via EMS for alcohol intoxication. Bystanders called because he was rolling around the on the ground outside of a store. Patient states that he was tired, sat down and tried to take a nap. He does not report any complaints at this time. MD complaint: alcohol intoxication, alcohol dependence and desires rehab Last drink: Hours (ago) (Within the hour of arrival) Chronic alcohol use: Yes Previous visits for alcohol intoxication: Yes Recent trauma: No Associated symptoms: denies other symptoms Treatments prior to arrival: none Related Data Previous Rx's Medication Instructions Recorded walker #1 ea 07/05/21 lidocaine 5 % topical patch 1 patch topical DAILY PRN pain #15 03/03/22 ea Allergies Allergy/AdvReac Type Severity Reaction Status Date / Time clams Allergy Severe HIVES, Verified 03/03/22 16:03 DIFFICULTY BREATHING Review of Systems Review of Systems: Constitutional: No Fever, No Chills ENT/Mouth: No Ear Pain, No Hoarseness, No sore throat Eyes: No Eye Pain, No Swelling, No Redness, No Foreign Body Cardiovascular: No Chest Pain, No SOB Respiratory: No Cough, No Dyspnea Gastrointestinal: No Nausea, No Vomiting, No Diarrhea, No abdominal Pain Genitourinary: No Dysuria, No Hematuria Musculoskeletal: No joint pain, No Myalgias, No Joint Swelling Skin: No Skin lacerations, No rash Neuro: No Weakness, No Numbness, No Paresthesias, No Loss of Consciousness, No Dizziness, No Headache Psych: Positive alcohol abuse, No Anxiety/Panic, No Depression Heme/Lymph: no easy bruising, no Lymphadenopathy Endocrine: No Polyuria, No Polydipsia Yes all other systems are reviewed and are negative COUNTS INCLUDE 234 BEDS AT THE [facility] Past Medical History Attestation statement: The following information was validated with the patient. Source: old records reviewed Medical History ETOH abuse High cholesterol HTN (hypertension) Social History Social History Alcohol intake: current Alcohol intake frequency: 3 or more drinks per day Alcohol type: beer and hard liquor Patient Tobacco Use Status: Never used Tobacco Advance Directives: No Advance Directives Information Provided: Yes service: No Current occupational status: unemployed Physical Exam ED Vital Signs: Vital Signs - 24 hr 03/22/22 17:28 Temperature 96.9 F Pulse Rate 99 Respiratory Rate 18 Blood Pressure 112/69 Pulse Oximetry 95 Oxygen Delivery Method Room Air BMI result Body Mass Index 25.8 Appearance: Alert. Oriented X3. Intoxicated disheveled smells of urine and alcohol Eyes: Pupils equal, round and reactive to light. Sclera nonicteric. ENT: Pharynx normal. Neck: Normal inspection. Neck supple. CVS: Normal heart rate and rhythm. Pulses normal. Respiratory: No respiratory distress. Breath sounds normal. Abdomen: Soft and nontender. Skin: Skin warm and dry. Normal skin color. Normal skin turgor. Extremities: No lower extremity edema. No asterixis. Moves all extremities against resistance. Gait not assessed for safety. Neuro: No motor deficit. No sensory deficit. Cranial nerves 2-12 intact. Course Course Course Narrative: 52-year-old male presents via EMS for alcohol intoxication. States that he tried to lay down on the ground take nap, he did not hit his head or report any recent falls. I did ask if he was interested in detox, will have monomer recovery operator go and speak to him. This patient presents to the emergency department on almost weekly basis, has had at least 22 CT scans of his head in the past year. Considering the patient is normocephalic, atraumatic, with no indication of injury, abrasion, ecchymosis or hematomas to his head neck or chest, I feel that CT scan at this time is not indicated. 18:20 recovery team states that there is a bed available, patient is willing to go. MDM - Alcohol Differential Diagnosis Differential diagnosis: Likely alcohol dependence and alcohol intoxication Medical Records Attestation: I reviewed the patient's medical records. Lab Data Attestation: I reviewed the patient's lab results. Labs: Lab Results 03/22/22 Range/Units 17:29 POC Glucose 86 (60-115) mg/dL Discharge Plan Discharge Clinical Impression: Alcohol dependence Patient Disposition: Home, Self-Care Instructions: Alcohol Dependence (ED) Additional Instructions: Thank you for choosing detox. Thank you for choosing this emergency department for evaluation. Please follow-up with primary care physician as needed. Return to the emergency department for any new, concerning, or worsening symptoms. Prescriptions: No Action (DME) walker Misc See Rx Instructions .Route Qty: 1 0RF Rx Instructions: As directed lidocaine 5 % adhesive patch,medicated 1 patch topical DAILY PRN (Reason: pain) Qty: 15 0RF Rx Instructions: leave on most painful area for up to 12 hrs Interventions: ED Discharge Assessment Last Done: 03/22/22 18:59 Discharge Date/Time: 03/22/22 19:00
[2022-03-22 17:28] VITALS: BP 109/74; BP 112/69; PULSE 95; PULSE 99; RESP 18; TEMP 36.1; O2SAT 90; O2SAT 95; BMI 25.8
[2022-03-22 17:33] LABS: Glucose, Whole Blood 86 mg/dL (60-115)
--- NOTE | 2022-03-22 17:48 | MHC.RECOVSUP ---
Addendum entered by Keo Hameed [facility] 03/22/22 19:11: No beds available at [facility] or [facility]. [facility] reports that several beds were available and that no one was in the waiting room. Patient willing to go to [facility]. Discharged and transported via [employer]. Patient ambulated independently from [employer] to [employer]. Original Note: Recovery Support note: Patient is a 52 year old Romansh speaking male who presented [facility] due to alcohol intoxication. Patient is interested in going to detox. Patient reports daily alcohol use however is unable to specify his typical consumption quantity. Patient denies SI/HI. Patient is not on any medications at this time and patient can ambulate independently without difficulty. This proposal manager writer will assist patient in referring to ATS facilities.
== END 2022-03-22 19:00 | disposition home or self-care (01) ==
PROVIDERS: Emergency Provider Emergency Medicine
DX: F10.229 Alcohol dependence with intoxication, unspecified (principal); Y90.9 Presence of alcohol in blood, level not specified
CPT/HCPCS: 82947; 99282

== ENCOUNTER 2022-04-26 17:56 | Emergency (ER) | payer MEDICAID, SELFPAY ==
--- NOTE | ~2022-04-26 | CT_ITS ---
EXAMINATION: CT HEAD WITHOUT CONTRAST CLINICAL INFORMATION: Head pain status post fall. COMPARISON: 03/12/2022 TECHNIQUE: Contiguous axial imaging was performed from the skull base to vertex without intravenous administration of contrast. This CT examination was performed using dose optimization techniques as appropriate, variously including the following: *Automated exposure control *Adjustment of mA and/or kV according to patient size (this includes techniques or standardized protocols for targeted exams where dose is matched to indication/reason for exam; i.e. extremities or head) *Use of iterative reconstruction technique Dose: 807 mGy-cm FINDINGS: Previously seen subdural hematoma over the right frontal lobe anteriorly as near completely resolved. There is no evidence of acute intracranial hemorrhage or territorial infarction. No abnormal mass-effect or midline shift is seen. Lemus to white matter differentiation is well preserved. No new extra axial fluid collections. The ventricles are normal in size and configuration. A few subtle foci of hypoattenuation in the subcortical and periventricular white matter are most consistent with chronic microangiopathic changes. 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 No underlying fractures are identified. The mastoid air cells are clear. Retention cyst is again seen in the left maxillary sinus. 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 Rightward deviation of the nasal septum. Multiple areas of periapical lucency identified in maxilla, consistent with apical periodontitis. CT/CT head/brain wo IV con IMPRESSION: 1. No acute intracranial pathology. 2. Near-complete resolution of the previously seen right frontal subdural hematoma. 3. Left parietal scalp contusion with a thin subgaleal hematoma. No underlying fractures.
[2022-04-26 18:02] VITALS: BP 128/90; PULSE 70; O2SAT 97
[2022-04-26 18:11] VITALS: BP 133/82; PULSE 89; RESP 16; TEMP 36.7; O2SAT 98; BMI 25.8
--- NOTE | 2022-04-26 18:29 | ED.FALL ---
HPI - Fall General Chief Complaint: Fall Stated Complaint: ETOH fall Time Seen by Provider: 04/26/22 18:07 Source: patient Mode of arrival: EMS Limitations: no limitations History of Present Illness HPI Narrative: Patient alcoholic had 2 beers and half pt vodka was in the kitchen lost balance and fell with soft tissue swelling of the top of the head no loss of consciousness no seizures no vomiting no change in mental status no other injuries Related Data Previous Rx's Medication Instructions Recorded walker #1 ea 07/05/21 lidocaine 5 % topical patch 1 patch topical DAILY PRN pain #15 03/03/22 ea Allergies Allergy/AdvReac Type Severity Reaction Status Date / Time clams Allergy Severe HIVES, Verified 03/03/22 16:03 DIFFICULTY BREATHING Review of Systems Review of Systems: Yes all other systems are reviewed and are negative COUNT INCLUDES THE [facility] Past Medical History Medical History ETOH abuse High cholesterol HTN (hypertension) Social History Social History Alcohol intake: current Alcohol intake frequency: 3 or more drinks per day Alcohol type: beer and hard liquor Patient Tobacco Use Status: Never used Tobacco Advance Directives: No Advance Directives Information Provided: No service: No Current occupational status: unemployed Physical Exam Vital Signs: Vital Signs: Last Vital Signs Temp 98.1 F 04/26/22 18:11 Pulse 89 04/26/22 18:11 Resp 16 04/26/22 18:11 BP 133/82 04/26/22 18:11 Pulse Ox 98 04/26/22 18:11 O2 Del Method 04/26/22 18:11 BMI result Body Mass Index 25.8 Appearance: Alert. Oriented X3. No acute distress. ETOH+ Eyes: PERRLA, No Nystagmus HEENT: Pharynx normal. Oral Mucosa moist soft tissue swelling top of the scalp Neck: Normal inspection. Neck supple no midline tenderness. CVS: Normal heart rate and rhythm. Pulses normal. Respiratory: No respiratory distress. Equal air entry bilateral, no wheezing/rales/rhonchi Abdomen: Soft and nontender. Bowel sounds are present, no mass palpable, no CVA tenderness Skin: Skin warm and dry. Normal skin color. Normal skin turgor. Extremities: No lower extremity edema. No calf tenderness Neuro: Oriented X 3. No motor deficit. No sensory deficit.No cerebellar signs , cranial nerves II-XII intact MDM - Fall MDM Narrative Medical decision making narrative: Patient alcoholic is status post minor fall ambulate in the ER will discharge patient home CT head is negative except for small subgaleal hematoma no fracture Medical Records Attestation: I reviewed the patient's medical records. Discharge Plan Discharge Clinical Impression: Minor closed head injury, Alcohol abuse Patient Disposition: Home, Self-Care Instructions: Head Injury (ED), Abuse of Alcohol (ED) Additional Instructions: Do not drink alcohol [id number] Report to the ER if severe headache/vomiting Prescriptions: No Action (DME) walker Misc See Rx Instructions .Route Qty: 1 0RF Rx Instructions: As directed lidocaine 5 % adhesive patch,medicated 1 patch topical DAILY PRN (Reason: pain) Qty: 15 0RF Rx Instructions: leave on most painful area for up to 12 hrs
== END 2022-04-26 22:20 | disposition home or self-care (01) ==
PROVIDERS: Emergency Provider Internal Medicine
DX: S00.03XA Contusion of scalp, initial encounter (principal); S09.90XA Unspecified injury of head, initial encounter; W01.0XXA Fall on same level from slipping, tripping and stumbling without subsequent striking against object, initial encounter; F10.10 Alcohol abuse, uncomplicated; Y90.9 Presence of alcohol in blood, level not specified; Y93.9 Activity, unspecified; Y92.9 Unspecified place or not applicable; Y99.9 Unspecified external cause status
CPT/HCPCS: 70450; 99282; 99284

== ENCOUNTER 2022-05-30 12:45 | Emergency (ER) | payer MEDICAID, SELFPAY ==
--- NOTE | ~2022-05-30 | CT_ITS ---
EXAMINATION: CT BRAIN AND CT CERVICAL SPINE WITHOUT CONTRAST CLINICAL INFORMATION: Fall, ethanol. COMPARISON: None TECHNIQUE: 5 mm thin axial and reformatted 2 mm thin sagittal and coronal images of brain were obtained. Subsequently 3 mm thin axial and reformatted 2 mm thin sagittal and coronal images of brain were obtained. DLP 1106 FINDINGS: Brain: There is no acute intra-axial, extra-axial bleed, masses or midline shift. There is no acute infarction in evolution. There is no edema. The yao to white matter differentiation is maintained. The lateral ventricles are symmetrical and size and configuration without enlargement. A prominent cisterna magna is noted. Bone windows reveal no calvarial abnormality. Bilateral paranasal sinuses and mastoid air cells are well-aerated and clear. There is no scalp soft tissue abnormality. Cervical spine: There is mild straightening of cervical lordosis. The vertebral heights, alignment and disc heights are normal. There is no visible acute fracture, dislocation or subluxation seen. No bony erosive changes. The neural foramina are patent. There is moderate right C5-C6 and C6-C7 facet joint arthropathy and hypertrophy. No aggressive lytic or sclerotic process seen. The lung apices are clear. Soft tissues of the neck appear unremarkable. CT/CT head/brain wo IV con IMPRESSION: No acute intracranial process seen. There is no acute fracture, dislocation or subluxation of cervical spine.
--- NOTE | ~2022-05-30 | CT_ITS ---
EXAMINATION: CT BRAIN AND CT CERVICAL SPINE WITHOUT CONTRAST CLINICAL INFORMATION: Fall, ethanol. COMPARISON: None TECHNIQUE: 5 mm thin axial and reformatted 2 mm thin sagittal and coronal images of brain were obtained. Subsequently 3 mm thin axial and reformatted 2 mm thin sagittal and coronal images of brain were obtained. DLP 1106 FINDINGS: Brain: There is no acute intra-axial, extra-axial bleed, masses or midline shift. There is no acute infarction in evolution. There is no edema. The yao to white matter differentiation is maintained. The lateral ventricles are symmetrical and size and configuration without enlargement. A prominent cisterna magna is noted. Bone windows reveal no calvarial abnormality. Bilateral paranasal sinuses and mastoid air cells are well-aerated and clear. There is no scalp soft tissue abnormality. Cervical spine: There is mild straightening of cervical lordosis. The vertebral heights, alignment and disc heights are normal. There is no visible acute fracture, dislocation or subluxation seen. No bony erosive changes. The neural foramina are patent. There is moderate right C5-C6 and C6-C7 facet joint arthropathy and hypertrophy. No aggressive lytic or sclerotic process seen. The lung apices are clear. Soft tissues of the neck appear unremarkable. CT/CT cervical spine wo IV con IMPRESSION: No acute intracranial process seen. There is no acute fracture, dislocation or subluxation of cervical spine.
[2022-05-30 13:03] VITALS: BP 122/74; PULSE 84; O2SAT 98; BMI 25.0
[2022-05-30 13:09] VITALS: BP 106/61; PULSE 77; RESP 20; TEMP 36.4; O2SAT 97
--- NOTE | 2022-05-30 13:10 | PC.NURSE ---
REFUSING TO WEAR C COLLAR SELF REMOVAL
--- NOTE | 2022-05-30 14:55 | ED.GENADULT ---
HPI - General Adult General Chief complaint: ETOH/Substance Use Stated complaint: ETOH Fall w/ Lac Back of Head per EMS Time Seen by Provider: 05/30/22 13:04 Source: patient Mode of arrival: ambulatory Limitations: no limitations History of Present Illness HPI narrative: 52-year-old male brought to the ED for fall after drinking alcohol as per EMS. Alcohol smell on breath. Patient has history of alcoholism Related Data Previous Rx's Medication Instructions Recorded walker #1 ea 07/05/21 lidocaine 5 % topical patch 1 patch topical DAILY PRN pain #15 03/03/22 ea Allergies Allergy/AdvReac Type Severity Reaction Status Date / Time clams Allergy Severe HIVES, Verified 03/03/22 16:03 DIFFICULTY BREATHING Review of Systems Review of Systems: Reading alcohol hit head Yes all other systems are reviewed and are negative COUNTS INCLUDE 234 BEDS AT THE [facility] Past Medical History Medical History ETOH abuse High cholesterol HTN (hypertension) Social History Social History Alcohol intake: current Alcohol intake frequency: 3 or more drinks per day Alcohol type: beer and hard liquor Patient Tobacco Use Status: Never used Tobacco Smoked in Last 30 Days: Yes Use of substances other than those prescribed or required for medical reasons: No Advance Directives: No Advance Directives Information Provided: Yes service: No Current occupational status: unemployed Physical Exam ED Vital Signs: Vital Signs - 24 hr 05/30/22 13:09 05/30/22 17:02 Temperature 97.6 F 97.6 F Pulse Rate 77 70 Respiratory Rate 20 12 Blood Pressure 106/61 121/79 Pulse Oximetry 97 99 Oxygen Delivery Method Room Air Room Air BMI result Body Mass Index 25.0 Const General: cooperative, healthy appearing, comfortable, no acute distress, well developed, alert, awake and Physically active Orientation/consciousness: oriented to person, oriented to place, oriented to time and patient oriented x3 HENMT Head: Yes normal to inspection, Yes No palpable skull fracture present, Yes normocephalic, Yes atraumatic and No abrasion Head images: 1. More open abrasion. No need for laceration repair. Eyes General: appearance normal, both eyes and all related structures Neck Neck: Yes normal visual inspection, Yes full ROM, Yes no lymphadenopathy, Yes no meningeal signs, Yes trachea midline, Yes supple, No anterior neck swelling and No tender Chest Chest palpation & inspection: normal inspection of the chest and normal palpation of entire chest wall Resp Effort & Inspection: normal respiratory effort and able to speak in complete sentences Cardio Jugular venous distension: no JVD GI Inspection: Yes normal to inspection and No abdominal wall ecchymosis Palpation (GI): Soft to palpation, not firm, nontender, no guarding and not rigid General: No CVA tenderness and Yes no CVA tenderness Back/Spine/Pelvis Back: no CVA tenderness, No CVA tenderness and No back tenderness Skin General skin exam: no rashes or lesions noted and elasticity normal Neuro General: oriented to person, oriented to place, oriented to time, patient oriented x3, gait normal and no meningeal signs Cranial nerves: Yes CN's II-XII intact bilaterally Extrem General: Yes normal to inspection and Yes full ROM Psych Appearance: grossly normal, well kempt and not disheveled Course Course Course Narrative: Head CT cervical spine CT ordered Reevaluation(s) Reevaluation #1: [employer]ette [employer] coach came and evaluated patient and states patient should have labs drawn so patient could go to his bed at [facility] Reevaluation #2: Labs are baseline. EKG shows no new changes. EKG was requested by [facility] team. [facility] the detox program requested EKG. Patient presently doing intake over the phone to go to [facility]. Reevaluation #3: Patient accepted to [facility] will be discharged. Medical Decision Making Medical Decision Making MDM Narrative: Patient left posterior scalp abrasion due to head trauma after drinking. No need for shelli. Labs are normal. EKG negative for any new changes. Patient will be going to detox for alcohol abuse. Patient up-to-date with [facility] Discharge Plan Discharge Clinical Impression: Alcohol abuse Patient Disposition: Home, Self-Care Instructions: Abuse of Alcohol (ED) Additional Instructions: Your images of the head and neck came back negative. He will be going to [facility] detox program. Return to ED for any physical or psychological. Prescriptions: [facility] See Rx Instructions .Route Qty: 1 0RF Rx Instructions: As directed lidocaine 5 % adhesive patch,medicated 1 patch topical DAILY PRN (Reason: pain) Qty: 15 0RF Rx Instructions: leave on most painful area for up to 12 hrs Interventions: Robertson-Suicide Risk Severity Scale Last Done: 05/30/22 19:52 ED Discharge Assessment Last Done: 05/30/22 19:52 Discharge Date/Time: 05/30/22 19:53 Print Language: Greek
--- NOTE | 2022-05-30 16:00 | MHC.RECOVRN ---
Spoke with pt who reports drinking 2-3 beers daily and is interested in ATS. 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 Spoke with ED provider who will order labs in order to send referral to [facility] ([facility] has availability).
[2022-05-30 16:15] LABS: MANUAL DIFF FLAG NO
[2022-05-30 16:20] LABS: Basophils Percent Auto 0.5 % (0-2); Imm Gran Abs Auto 0.01 X10*3/uL (0.00-0.03); Imm Gran Pct Auto 0.3 % (0.0-0.4); PLT CLUMP 1; SCAN SMEAR FLAG 1
[2022-05-30 16:22] LABS: Eosinophils Absolute Auto 0.2 X10*3/uL (0.0-0.4); Eosinophils Percent Auto 4.4 % (0-4); Hematocrit 45.5 % (42.0-52.0); Hemoglobin 15.6 g/dl (14.0-18.0); Lymphocytes Absolute Auto 0.7 X10*3/uL (1.2-4.9); Lymphocytes Percent Auto 18.4 % (20-40); Mean Corpuscular HGB Conc 34.3 g/dl (31.0-36.0); Mean Corpuscular Hemoglobin 31.1 pg (27.0-33.0); Mean Corpuscular Volume 90.8 fL (80.0-98.0); Mean Platelet Volume 11.2 fL (9.4-12.4); Monocytes Absolute Auto 0.7 X10*3/uL (0.1-1.2); Monocytes Percent Auto 17.4 % (2-11); Neutrophils Absolute Auto 2.3 x10*3/uL (2.0-8.3); Red Blood Count 5.01 X10*6/uL (4.60-5.80); Red Cell Distribution Width 13.6 % (11.0-16.0)
[2022-05-30 16:29] LABS: Platelet Count 123 X10*3/uL (160-400); White Blood Count 3.9 X10*3/uL (4.8-10.8)
[2022-05-30 16:34] LABS: Alanine Aminotransferase 44 U/L (0-40); Albumin Level 3.8 g/dL (3.5-5.0); Alkaline Phosphatase 73 U/L (39-117); Anion Gap 13 (12-20); Aspartate Amino Transferase 42 U/L (5-37); Bilirubin Total 0.4 mg/dL (0.0-1.0); Blood Urea Nitrogen 17 mg/dL (9-16); Calcium 8.5 mg/dL (8.4-10.2); Carbon Dioxide 27 mmol/L (22-29); Chloride 108 mmol/L (96-108); Creatinine Clr Calc Pharmacy 113.7; Estimated Glomerular Filt Rate > 60; Ethanol 158 mg/dL; Glucose Random 91 mg/dL (60-115); Potassium 3.9 mmol/L (3.3-5.1); Sodium 144 mmol/L (135-145); Total Protein 7.1 g/dL (6.5-8.0)
[2022-05-30 17:02] VITALS: BP 121/79; PULSE 70; RESP 12; TEMP 36.4; O2SAT 99
--- NOTE | 2022-05-30 17:38 | ECG_ITS ---
Test Reason : ETOH Blood Pressure : / mmHG Vent. Rate : 069 BPM Atrial Rate : 069 BPM P-R Int : 190 ms QRS Dur : 090 ms QT Int : 438 ms P-R-T Axes : 054 -18 020 degrees QTc Int : 469 ms Normal sinus rhythm Inferior infarct , age undetermined Abnormal ECG When compared with ECG of 03-MAR-2022 17:31, No significant change was found Referred By: Nicho Combs Electronically Signed By:SUNDAY JARAMILLO MD
--- NOTE | 2022-05-30 17:45 | MHC.CARE ---
Pt communicated with [facility] re: bed availability and sending referral over for pt. Requested full lab workup and EKG. Provider notified that [facility] is requiring an EKG. Referral will be faxed to [facility] at [phone] and pt will be instructed to call [facility] to complete a phone intake. Admission may be tonight or tomorrow morning depending on availability and timing.
--- NOTE | 2022-05-30 19:25 | MHC.RECOVSUP ---
? Reason for consult recovery support o Current location: EM o Identified substance use concern: Alcohol - Withdrawal - Seeking ATS (detox) - Support ? Intervention: o ATS bed search started [id number] o Community resources provided o Harm reduction discussion ? Plan: o Patient to follow up with [facility] after discharge ? Additional information: Patient seeking ATS,, Patient has a bed at [facility] and a lyft was provided
--- NOTE | 2022-05-30 19:51 | PC.NURSE ---
Tomer by KADE sent to [facility] arrangements made by coach builder.
== END 2022-05-30 19:53 | disposition home or self-care (01) ==
PROVIDERS: Physician Assistant; Emergency Provider Emergency Medicine
DX: S01.01XA Laceration without foreign body of scalp, initial encounter (principal); R51.9 Headache, unspecified; M54.2 Cervicalgia; F10.10 Alcohol abuse, uncomplicated; Y90.9 Presence of alcohol in blood, level not specified; W01.0XXA Fall on same level from slipping, tripping and stumbling without subsequent striking against object, initial encounter; Y93.9 Activity, unspecified; Y92.9 Unspecified place or not applicable; Y99.9 Unspecified external cause status; Z79.899 Other long term (current) drug therapy
CPT/HCPCS: 36415; 70450; 72125; 80053; 82077; 85025; 93005; 99284

== ENCOUNTER 2022-06-07 15:40 | Emergency (ER) | payer MEDICAID, SELFPAY ==
[2022-06-07 16:01] VITALS: BP 111/79; BP 112/72; PULSE 82; PULSE 89; RESP 18; TEMP 36.7; O2SAT 97; BMI 25.8
--- NOTE | 2022-06-07 16:11 | ED_ITS ---
HPI - Alcohol General Chief Complaint: ETOH/Substance Use <Lucio Perdomo MD - Last Filed: 06/07/22 16:40> Stated Complaint: UNABLE TO AMBULATE <Lucio Perdomo MD - Last Filed: 06/07/22 16:40> Time Seen by Provider: 06/07/22 15:59 <Lucio Perdomo MD - Last Filed: 06/07/22 16:40> Source: patient, EMS and old records reviewed <Lucio Perdomo MD - Last Filed: 06/07/22 16:40> History of Present Illness HPI narrative: Patient with a long history of alcohol use disorder presents after drinking to where he states he was unable to walk at home today. He is requesting hospitalization at [facility]. He states he was just there until this morning. He checked out and went home and drank. He would like to return. He denies falling or injuries. His last visit here was after a fall with laceration to scalp. He states laceration is healing up well and he has no other complications from the fall. He denies pain at this time. He has a history of severe alcohol abstinence syndrome requiring hospitalization on phenobarbital protocol. He denies shaking at this time, however. He states he drank 1 pt of vodka and 2 beers which is his typical daily amount prior to going into detox. He denies other drug use. He states he has a history of hypertension for which she takes medicine and he took his last dose this morning. <Lucio Perdomo MD - Last Filed: 06/07/22 16:40> Related Data Home Medications: Previous Rx's Medication Instructions Recorded walker #1 ea 07/05/21 lidocaine 5 % topical patch 1 patch topical DAILY PRN pain #15 03/03/22 ea <Lucio Perdomo MD - Last Filed: 06/07/22 16:40> Allergies/Adverse Reactions: Allergies Allergy/AdvReac Type Severity Reaction Status Date / Time clams Allergy Severe HIVES, Verified 03/03/22 16:03 DIFFICULTY BREATHING <Lucio Perdomo MD - Last Filed: 06/07/22 16:40> Review of Systems Constitutional: Comments: No new weakness or fevers or chills <Lucio Perdomo MD - Last Filed: 06/07/22 16:40> Cardiovascular: Comments: No chest pain <Lucio Perdomo MD - Last Filed: 06/07/22 16:40> Respiratory: Comments: No cough or dyspnea <Lucio Perdomo MD - Last Filed: 06/07/22 16:40> Gastrointestinal: Comments: No nausea vomiting or abdominal pain <Lucio Perdomo MD - Last Filed: 06/07/22 16:40> Musculoskeletal: Comments: No extremity injuries <Lucio Perdomo MD - Last Filed: 06/07/22 16:40> Integumentary/Breasts: Comments: No rash. His laceration is healing well per patient <Lucio Perdomo MD - Last Filed: 06/07/22 16:40> Neurologic: Comments: No focal neuro deficits that are new <Lucio Perdomo MD - Last Filed: 06/07/22 16:40> Psychiatric: Comments: No suicidal ideation or homicidal ideation <Lucio Perdomo MD - Last Filed: 06/07/22 16:40> PMFSH Past Medical History Medical History: Medical History ETOH abuse High cholesterol HTN (hypertension) <Lucio Perdomo MD - Last Filed: 06/07/22 16:40> Social History Social History: Social History Alcohol intake: current Alcohol intake frequency: 3 or more drinks per day Alcohol type: beer and hard liquor Patient Tobacco Use Status: Never used Tobacco Smoked in Last 30 Days: Yes Use of substances other than those prescribed or required for medical reasons: No Advance Directives: No Advance Directives Information Provided: Yes service: No Current occupational status: unemployed <Lucio Perdomo MD - Last Filed: 06/07/22 16:40> Physical Exam ED Vital Signs: Vital Signs - 24 hr 06/07/22 16:01 06/07/22 17:32 06/07/22 20:30 Temperature 98.0 F 98.1 F Pulse Rate 82 88 84 Respiratory Rate 18 18 14 Blood Pressure 112/72 116/76 119/78 Pulse Oximetry 97 96 95 Oxygen Delivery Method Room Air Room Air Room Air 06/08/22 00:17 06/08/22 04:05 Temperature 97.6 F 97.6 F Pulse Rate 71 71 Respiratory Rate 18 18 Blood Pressure 141/76 H 125/79 Pulse Oximetry 96 97 Oxygen Delivery Method Room Air Room Air BMI result Body Mass Index 25.8 <Lucio Perdomo MD - Last Filed: 06/07/22 16:40> Vital Signs - 24 hr 06/07/22 16:01 06/07/22 17:32 06/07/22 20:30 Temperature 98.0 F 98.1 F Pulse Rate 82 88 84 Respiratory Rate 18 18 14 Blood Pressure 112/72 116/76 119/78 Pulse Oximetry 97 96 95 Oxygen Delivery Method Room Air Room Air Room Air 06/08/22 00:17 06/08/22 04:05 Temperature 97.6 F 97.6 F Pulse Rate 71 71 Respiratory Rate 18 18 Blood Pressure 141/76 H 125/79 Pulse Oximetry 96 97 Oxygen Delivery Method Room Air Room Air BMI result Body Mass Index 25.8 <[place] Barton MD - Last Filed: 06/08/22 09:04> Const Other: Patient is awake and alert. He is comfortable appearing. <Lucio Perdomo MD - Last Filed: 06/07/22 16:40> HENMT Other: ETOH Halitosis Well-healing laceration to his occipital scalp, left side. No evidence of infection or dehiscence Pupils are equal round reactive to light <Lucio Perdomo MD - Last Filed: 06/07/22 16:40> Neck Other: No meningismus or neck tenderness <Lucio Perdomo MD - Last Filed: 06/07/22 16:40> Resp Other: Clear and equal bilaterally without wheezes rales or rhonchi <Lucio Perdomo MD - Last Filed: 06/07/22 16:40> Cardio Other: Regular rate and rhythm no murmurs rubs or gallops <Lucio Perdomo MD - Last Filed: 06/07/22 16:40> GI Other: Soft nontender nondistended <Lucio Perdomo MD - Last Filed: 06/07/22 16:40> Skin Other: Warm pink and dry. <Lucio Perdomo MD - Last Filed: 06/07/22 16:40> Neuro Other: Nonfocal <Lucio Perdomo MD - Last Filed: 06/07/22 16:40> Extrem Other: No obvious traumatic injuries <Lucio Perdomo MD - Last Filed: 06/07/22 16:40> Course Course Course Narrative: Alcohol use disorder, longstanding and severe. Acute alcohol intoxication No evidence of acute injury Will repeat lab work and of order consult for placement in detox <Lucio Perdomo MD - Last Filed: 06/07/22 16:40> Alcohol use disorder, longstanding and severe. Acute alcohol intoxication No evidence of acute injury Will repeat lab work and of order consult for placement in detox 0902: End physician observation: I assumed care of this patient from my colleague, Dr. Perdomo at 02:00 hours. The patient presented with alcohol intoxication requesting detox. At this time he is requesting to be discharged home and is no longer in [facility] and waiting to talk to our lean coach. <North Barton MD - Last Filed: 06/08/22 09:04> Medical Decision Making Lab Data Result Diagrams: : 06/07/22 16:47 06/07/22 16:47 <Lucio Perdomo MD - Last Filed: 06/07/22 16:40> Labs: Lab Results 06/07/22 06/07/22 06/07/22 Range/Units 16:47 16:47 16:47 WBC 5.4 (4.8-10.8) X10*3/uL RBC 4.63 (4.60-5.80) X10*6/uL Hgb 14.2 (14.0-18.0) g/dl Hct 42.0 (42.0-52.0) % MCV 90.7 (80.0-98.0) fL MCH 30.7 (27.0-33.0) pg MCHC 33.8 (31.0-36.0) g/dl RDW 13.1 (11.0-16.0) % Plt Count 115 L (160-400) X10*3/uL MPV 11.9 (9.4-12.4) fL Immature Gran % (Auto) 0.2 (0.0-0.4) % Neut % (Auto) 70.7 (45-73) % Lymph % (Auto) 12.8 L (20-40) % [place] % (Auto) 12.7 H (2-11) % Eos % (Auto) 3.2 (0-4) % Baso % (Auto) 0.4 (0-2) % Lymph # (Auto) 0.7 L (1.2-4.9) X10*3/uL [place] # (Auto) 0.7 (0.1-1.2) X10*3/uL Eos # (Auto) 0.2 (0.0-0.4) X10*3/uL Baso # (Auto) 0.0 (0.0-0.2) X10*3/uL Abs Immat Gran (auto) 0.01 (0.00-0.03) X10*3/uL Absolute Neuts (auto) 3.8 (2.0-8.3) x10*3/uL Absolute Nucleated RBC 0.000 (0.0-0.012) X10*3/uL Nucleated RBC % (auto) 0.0 (0.0-0.2) /100WBC Sodium 138 (135-145) mmol/L Potassium 3.9 (3.3-5.1) mmol/L Chloride 108 (96-108) mmol/L Carbon Dioxide 21 L (22-29) mmol/L Anion Gap 13 (12-20) BUN 19 H (9-16) mg/dL Creatinine 0.80 (0.5-1.4) mg/dL Estim Creat Clear Calc 97.4 Estimated GFR > 60 Random Glucose 98 (60-115) mg/dL Calcium 8.3 L (8.4-10.2) mg/dL Total Bilirubin 0.3 (0.0-1.0) mg/dL AST 43 H (5-37) U/L ALT 49 H (0-40) U/L Alkaline Phosphatase 67 (39-117) U/L Total Protein 7.3 (6.5-8.0) g/dL Albumin 3.9 (3.5-5.0) g/dL Urine Opiates Screen Not Detected (Not Detect) Urine Fentanyl Screen Not Detected (Not Detect) Ur Barbiturates Screen Not Detected (Not Detect) Ur Phencyclidine Scrn Not Detected (Not Detect) Ur Amphetamines Screen Not Detected (Not Detect) U Benzodiazepines Scrn Not Detected (Not Detect) Urine Cocaine Screen Not Detected (Not Detect) U Marijuana (THC) Screen Not Detected (Not Detect) Ethyl Alcohol 232 mg/dL COVID-19 (TYE) (Negative) COVID-19 Clin Com 06/07/22 Range/Units 16:47 WBC (4.8-10.8) X10*3/uL RBC (4.60-5.80) X10*6/uL Hgb (14.0-18.0) g/dl Hct (42.0-52.0) % MCV (80.0-98.0) fL MCH (27.0-33.0) pg MCHC (31.0-36.0) g/dl RDW (11.0-16.0) % Plt Count (160-400) X10*3/uL MPV (9.4-12.4) fL Immature Gran % (Auto) (0.0-0.4) % Neut % (Auto) (45-73) % Lymph % (Auto) (20-40) % [place] % (Auto) (2-11) % Eos % (Auto) (0-4) % Baso % (Auto) (0-2) % Lymph # (Auto) (1.2-4.9) X10*3/uL [place] # (Auto) (0.1-1.2) X10*3/uL Eos # (Auto) (0.0-0.4) X10*3/uL Baso # (Auto) (0.0-0.2) X10*3/uL Abs Immat Gran (auto) (0.00-0.03) X10*3/uL Absolute Neuts (auto) (2.0-8.3) x10*3/uL Absolute Nucleated RBC (0.0-0.012) X10*3/uL Nucleated RBC % (auto) (0.0-0.2) /100WBC Sodium (135-145) mmol/L Potassium (3.3-5.1) mmol/L Chloride (96-108) mmol/L Carbon Dioxide (22-29) mmol/L Anion Gap (12-20) BUN (9-16) mg/dL Creatinine (0.5-1.4) mg/dL Estim Creat Clear Calc Estimated GFR Random Glucose (60-115) mg/dL Calcium (8.4-10.2) mg/dL Total Bilirubin (0.0-1.0) mg/dL AST (5-37) U/L ALT (0-40) U/L Alkaline Phosphatase (39-117) U/L Total Protein (6.5-8.0) g/dL Albumin (3.5-5.0) g/dL Urine Opiates Screen (Not Detect) Urine Fentanyl Screen (Not Detect) Ur Barbiturates Screen (Not Detect) Ur Phencyclidine Scrn (Not Detect) Ur Amphetamines Screen (Not Detect) U Benzodiazepines Scrn (Not Detect) Urine Cocaine Screen (Not Detect) U Marijuana (THC) Screen (Not Detect) Ethyl Alcohol mg/dL COVID-19 (TYE) Negative (Negative) COVID-19 Clin Com See Note <Lucio Perdomo MD - Last Filed: 06/07/22 16:40> Lab Results 06/07/22 06/07/22 06/07/22 Range/Units 16:47 16:47 16:47 WBC 5.4 (4.8-10.8) X10*3/uL RBC 4.63 (4.60-5.80) X10*6/uL Hgb 14.2 (14.0-18.0) g/dl Hct 42.0 (42.0-52.0) % MCV 90.7 (80.0-98.0) fL MCH 30.7 (27.0-33.0) pg MCHC 33.8 (31.0-36.0) g/dl RDW 13.1 (11.0-16.0) % Plt Count 115 L (160-400) X10*3/uL MPV 11.9 (9.4-12.4) fL Immature Gran % (Auto) 0.2 (0.0-0.4) % Neut % (Auto) 70.7 (45-73) % Lymph % (Auto) 12.8 L (20-40) % [place] % (Auto) 12.7 H (2-11) % Eos % (Auto) 3.2 (0-4) % Baso % (Auto) 0.4 (0-2) % Lymph # (Auto) 0.7 L (1.2-4.9) X10*3/uL [place] # (Auto) 0.7 (0.1-1.2) X10*3/uL Eos # (Auto) 0.2 (0.0-0.4) X10*3/uL Baso # (Auto) 0.0 (0.0-0.2) X10*3/uL Abs Immat Gran (auto) 0.01 (0.00-0.03) X10*3/uL Absolute Neuts (auto) 3.8 (2.0-8.3) x10*3/uL Absolute Nucleated RBC 0.000 (0.0-0.012) X10*3/uL Nucleated RBC % (auto) 0.0 (0.0-0.2) /100WBC Sodium 138 (135-145) mmol/L Potassium 3.9 (3.3-5.1) mmol/L Chloride 108 (96-108) mmol/L Carbon Dioxide 21 L (22-29) mmol/L Anion Gap 13 (12-20) BUN 19 H (9-16) mg/dL Creatinine 0.80 (0.5-1.4) mg/dL Estim Creat Clear Calc 97.4 Estimated GFR > 60 Random Glucose 98 (60-115) mg/dL Calcium 8.3 L (8.4-10.2) mg/dL Total Bilirubin 0.3 (0.0-1.0) mg/dL AST 43 H (5-37) U/L ALT 49 H (0-40) U/L Alkaline Phosphatase 67 (39-117) U/L Total Protein 7.3 (6.5-8.0) g/dL Albumin 3.9 (3.5-5.0) g/dL Urine Opiates Screen Not Detected (Not Detect) Urine Fentanyl Screen Not Detected (Not Detect) Ur Barbiturates Screen Not Detected (Not Detect) Ur Phencyclidine Scrn Not Detected (Not Detect) Ur Amphetamines Screen Not Detected (Not Detect) U Benzodiazepines Scrn Not Detected (Not Detect) Urine Cocaine Screen Not Detected (Not Detect) U Marijuana (THC) Screen Not Detected (Not Detect) Ethyl Alcohol 232 mg/dL COVID-19 (TYE) (Negative) COVID-19 Clin Com 06/07/22 Range/Units 16:47 WBC (4.8-10.8) X10*3/uL RBC (4.60-5.80) X10*6/uL Hgb (14.0-18.0) g/dl Hct (42.0-52.0) % MCV (80.0-98.0) fL MCH (27.0-33.0) pg MCHC (31.0-36.0) g/dl RDW (11.0-16.0) % Plt Count (160-400) X10*3/uL MPV (9.4-12.4) fL Immature Gran % (Auto) (0.0-0.4) % Neut % (Auto) (45-73) % Lymph % (Auto) (20-40) % [place] % (Auto) (2-11) % Eos % (Auto) (0-4) % Baso % (Auto) (0-2) % Lymph # (Auto) (1.2-4.9) X10*3/uL [place] # (Auto) (0.1-1.2) X10*3/uL Eos # (Auto) (0.0-0.4) X10*3/uL Baso # (Auto) (0.0-0.2) X10*3/uL Abs Immat Gran (auto) (0.00-0.03) X10*3/uL Absolute Neuts (auto) (2.0-8.3) x10*3/uL Absolute Nucleated RBC (0.0-0.012) X10*3/uL Nucleated RBC % (auto) (0.0-0.2) /100WBC Sodium (135-145) mmol/L Potassium (3.3-5.1) mmol/L Chloride (96-108) mmol/L Carbon Dioxide (22-29) mmol/L Anion Gap (12-20) BUN (9-16) mg/dL Creatinine (0.5-1.4) mg/dL Estim Creat Clear Calc Estimated GFR Random Glucose (60-115) mg/dL Calcium (8.4-10.2) mg/dL Total Bilirubin (0.0-1.0) mg/dL AST (5-37) U/L ALT (0-40) U/L Alkaline Phosphatase (39-117) U/L Total Protein (6.5-8.0) g/dL Albumin (3.5-5.0) g/dL Urine Opiates Screen (Not Detect) Urine Fentanyl Screen (Not Detect) Ur Barbiturates Screen (Not Detect) Ur Phencyclidine Scrn (Not Detect) Ur Amphetamines Screen (Not Detect) U Benzodiazepines Scrn (Not Detect) Urine Cocaine Screen (Not Detect) U Marijuana (THC) Screen (Not Detect) Ethyl Alcohol mg/dL COVID-19 (TYE) Negative (Negative) COVID-19 Clin Com See Note <North Barton MD - Last Filed: 06/08/22 09:04> Medications Administered Discontinued Medications Generic Name Dose Route Start Last Admin Trade Name Freq PRN Reason Stop Dose Admin Ibuprofen 600 mg 06/08/22 03:08 06/08/22 03:35 Ibuprofen 600 Mg Tablet PO 06/08/22 03:09 600 mg ONCE STA Administration <Lucio Perdomo MD - Last Filed: 06/07/22 16:40> Medications Administered Discontinued Medications Generic Name Dose Route Start Last Admin Trade Name Freq PRN Reason Stop Dose Admin Ibuprofen 600 mg 06/08/22 03:08 06/08/22 03:35 Ibuprofen 600 Mg Tablet PO 06/08/22 03:09 600 mg ONCE STA Administration <North Barton MD - Last Filed: 06/08/22 09:04> Discharge Plan Discharge Clinical Impression: Alcoholic intoxication <Lucio Perdomo MD - Last Filed: 06/07/22 16:40> Patient Disposition: Home, Self-Care <Lucio Perdomo MD - Last Filed: 06/07/22 16:40> Additional Instructions: Continue taking your medications as prescribed by your providers Follow-up with your doctor in 2 days. Please return to the emergency department if your symptoms get worse or if you develop any symptoms that are concerning to you. <Lucio Perdomo MD - Last Filed: 06/07/22 16:40> Prescriptions: [facility] See Rx Instructions .Route Qty: 1 0RF Rx Instructions: As directed lidocaine 5 % adhesive patch,medicated 1 patch topical DAILY PRN (Reason: pain) Qty: 15 0RF Rx Instructions: leave on most painful area for up to 12 hrs <Lucio Perdomo MD - Last Filed: 06/07/22 16:40> Interventions: Stewart-Suicide Risk Severity Scale Last Done: 06/08/22 03:04 <Lucio Perdomo MD - Last Filed: 06/07/22 16:40>
[2022-06-07 16:55] LABS: Mean Corpuscular Volume 90.7 fL (80.0-98.0); Mean Platelet Volume 11.9 fL (9.4-12.4); PLT CLUMP 1; SCAN SMEAR FLAG 1
[2022-06-07 16:56] LABS: Basophils Percent Auto 0.4 % (0-2); Eosinophils Absolute Auto 0.2 X10*3/uL (0.0-0.4); Eosinophils Percent Auto 3.2 % (0-4); Hemoglobin 14.2 g/dl (14.0-18.0); Imm Gran Abs Auto 0.01 X10*3/uL (0.00-0.03); Imm Gran Pct Auto 0.2 % (0.0-0.4); Lymphocytes Absolute Auto 0.7 X10*3/uL (1.2-4.9); Lymphocytes Percent Auto 12.8 % (20-40); Mean Corpuscular HGB Conc 33.8 g/dl (31.0-36.0); Mean Corpuscular Hemoglobin 30.7 pg (27.0-33.0); Monocytes Absolute Auto 0.7 X10*3/uL (0.1-1.2); Monocytes Percent Auto 12.7 % (2-11); Neutrophils Absolute Auto 3.8 x10*3/uL (2.0-8.3); Neutrophils Percent Auto 70.7 % (45-73); Red Blood Count 4.63 X10*6/uL (4.60-5.80); Red Cell Distribution Width 13.1 % (11.0-16.0)
[2022-06-07 16:57] LABS: MANUAL DIFF FLAG NO; Platelet Count 115 X10*3/uL (160-400); White Blood Count 5.4 X10*3/uL (4.8-10.8)
--- NOTE | 2022-06-07 17:04 | MHC.RECOVSUP ---
? Reason for consult Recovery support o Current location: [facility] o Identified substance use concern: Alcohol - Seeking ATS (detox) - Support ? Intervention: o Community resources provided o Harm reduction discussion ? Plan: o Patient to follow up with [facility] after discharge ? Additional information: Met with Patient and he stated that he left [facility] [place] and had some drinks.. And that he would like to go back...I called [facility] and they stated that he could not go back at this moment.. I spoke with Patient and he stated that he going to be alright.. That he could stay with a friend and that his brother was coming down from [place] to take him to [place]..
[2022-06-07 17:05] LABS: Amphetamine Screen Urine Not Detected (Not Detect); Barbiturates, Urine Not Detected (Not Detect); Benzodiazepines Screen Urine Not Detected (Not Detect); Cannabinoid Screen Urine Not Detected (Not Detect); Cocaine Screen Urine Not Detected (Not Detect); Fentanyl, urine Not Detected (Not Detect); Opiate Screen Urine Not Detected (Not Detect); Phencyclidine Screen Urine Not Detected (Not Detect)
[2022-06-07 17:08] LABS: COVID-19 Test Negative (Negative); IDNOW Serial# 16C4AD1C
[2022-06-07 17:09] LABS: Alanine Aminotransferase 49 U/L (0-40); Albumin Level 3.9 g/dL (3.5-5.0); Alkaline Phosphatase 67 U/L (39-117); Anion Gap 13 (12-20); Aspartate Amino Transferase 43 U/L (5-37); Bilirubin Total 0.3 mg/dL (0.0-1.0); Blood Urea Nitrogen 19 mg/dL (9-16); Calcium 8.3 mg/dL (8.4-10.2); Carbon Dioxide 21 mmol/L (22-29); Chloride 108 mmol/L (96-108); Creatinine Clr Calc Pharmacy 97.4; Estimated Glomerular Filt Rate > 60; Ethanol 232 mg/dL; Glucose Random 98 mg/dL (60-115); Potassium 3.9 mmol/L (3.3-5.1); Sodium 138 mmol/L (135-145); Total Protein 7.3 g/dL (6.5-8.0)
[2022-06-07 17:32] VITALS: BP 116/76; PULSE 88; RESP 18; TEMP 36.7; O2SAT 96
--- NOTE | 2022-06-07 17:42 | PC.NURSE ---
cost recovery technician spoke with patient
[2022-06-07 20:30] VITALS: BP 119/78; PULSE 84; RESP 14; O2SAT 95
[2022-06-08 00:17] VITALS: BP 141/76; PULSE 71; RESP 18; TEMP 36.4; O2SAT 96
[2022-06-08] MEDS: Ibuprofen 600 MG TABLET PO (03:35)
[2022-06-08 04:05] VITALS: BP 125/79; PULSE 71; RESP 18; TEMP 36.4; O2SAT 97
--- NOTE | 2022-06-08 05:36 | PC.NURSE ---
pt has been sleeping most of the night, he has voided twice no issues
--- NOTE | 2022-06-08 09:23 | MHC.RECOVRN ---
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 Plan to dc to friend's house until brother arrives on [place]. RN aware.
== END 2022-06-08 09:27 | disposition home or self-care (01) ==
PROVIDERS: Emergency Medicine; Emergency Provider Emergency Medicine Emergency Medical Services
DX: R26.2 Difficulty in walking, not elsewhere classified (principal); F10.129 Alcohol abuse with intoxication, unspecified; I10 Essential (primary) hypertension; Y90.7 Blood alcohol level of 200-239 mg/100 ml; Z20.822 Contact with and (suspected) exposure to COVID-19; Z79.899 Other long term (current) drug therapy
CPT/HCPCS: 80053; 80307; 82077; 85025; 87635; 99285

== ENCOUNTER 2022-06-13 13:19 | Emergency (ER) | payer MEDICAID, SELFPAY ==
[2022-06-13 13:28] VITALS: BP 129/66; BP 129/81; PULSE 89; PULSE 92; RESP 18; TEMP 36.7; O2SAT 95; O2SAT 98; BMI 19.8
--- NOTE | 2022-06-13 14:17 | ED_ITS ---
HPI - Alcohol General Chief Complaint: ETOH/Substance Use Stated Complaint: ETOH Time Seen by Provider: 06/13/22 13:31 Source: patient and EMS Mode of arrival: EMS Limitations: no limitations History of Present Illness HPI narrative: Patient comes to the emergency room complaining of alcohol intoxication. Patient states that he drank 2 beers prior to arrival. He called EMS himself. Patient states that he interested in detox. Patient states that he did not fall or have any injury before coming. Of note, patient has been seen frequently here in the emergency room for alcohol intoxication. Patient requesting to be sent somewhere near [place]. Patient denies suicidal or homicidal ideation Related Data Previous Rx's Medication Instructions Recorded walker #1 ea 07/05/21 lidocaine 5 % topical patch 1 patch topical DAILY PRN pain #15 03/03/22 ea Allergies Allergy/AdvReac Type Severity Reaction Status Date / Time clams Allergy Severe HIVES, Verified 03/03/22 16:03 DIFFICULTY BREATHING Review of Systems Review of Systems: Constitutional : No Weight loss, No Fever, No Chills, No Night Sweats, No Fatigue, No Malaise ENT/Mouth : No Hearing loss, No Ear Pain, No Nasal Congestion, No Sinus Pain, No Hoarseness, No sore throat, No Rhinorrhea, No Swallowing Difficulty Eyes: No Eye Pain, No Swelling, No Redness, No Foreign Body, No Discharge, No Vision Changes Cardiovascular : No Chest Pain, No SOB, No Dyspnea on Exertion, No Orthopnea, No Edema, No Palpitations Respiratory : No Cough, No Sputum, No Wheezing, No Smoke Exposure, No Dyspnea Gastrointestinal : No Nausea, No Vomiting, No Diarrhea, No Constipation, No abdominal Pain, No Hematochezia, No Melena Genitourinary : no irregular bleeding, No Dysuria, No Urinary Frequency, No Hematuria, No Urinary Incontinence, No Urgency, No Flank Pain, No Urinary Flow Changes, No Hesitancy Musculoskeletal : No joint pain, No Myalgias, No Joint Swelling Skin : No Skin Lesions, No rash Neuro : No Weakness, No Numbness, No Paresthesias, No Loss of Consciousness, No Dizziness, No Headache Psych : No Anxiety/Panic, No Depression, No SI/HI/AH/VH, complaining of alcohol dependence and wants detox Heme/Lymph: No Bruising, No Bleeding,No Lymphadenopathy Endocrine : No Polyuria, No Polydipsia, No Temperature Intolerance [facility] Past Medical History Medical History ETOH abuse High cholesterol HTN (hypertension) Social History Social History Alcohol intake: current Alcohol intake frequency: 3 or more drinks per day Alcohol type: beer and hard liquor Patient Tobacco Use Status: Never used Tobacco Smoked in Last 30 Days: Yes Use of substances other than those prescribed or required for medical reasons: Unknown Advance Directives: No Advance Directives Information Provided: Yes service: No Current occupational status: unemployed Physical Exam ED Vital Signs: Vital Signs - 24 hr 06/13/22 13:28 06/13/22 16:42 Temperature 98.1 F 98.1 F Pulse Rate 89 95 Respiratory Rate 18 18 Blood Pressure 129/66 144/82 H Pulse Oximetry 98 99 Oxygen Delivery Method Room Air Room Air BMI result Body Mass Index 19.8 Const Other: Appearance: Alert. Oriented X3. No acute distress. Disheveled Eyes: Pupils equal, round and reactive to light. ENT: Pharynx normal. Neck: Normal inspection. Neck supple. No lymph nodes noted. No crepitus CVS: Normal heart rate and rhythm. Pulses normal. Normal S1 and S2 Respiratory: No respiratory distress. Breath sounds normal. No Wheezing. No rales Abdomen: Soft and nontender. No rigidity. No distention. Skin: Skin warm and dry. Normal skin color. Normal skin turgor. Extremities: No lower extremity edema. No Lacerations. No Rash Neuro: Oriented X 3. No motor deficit. No sensory deficit. Moving all extremities. No slurred speech. CN 2 through 12 grossly intact Psych: calm, cooperative, normal affect Course Course Course Narrative: Care team for mechanic recovery consult pending. Physician anahi burch started at 14:20 17:36, released the accepted the patient. Patient will be provided with an uber/lyft pt agreees with plan, pt denies si/hi Medical Decision Making Lab Data Labs: Lab Results 06/13/22 06/13/22 Range/Units 15:32 16:14 Ethyl Alcohol 165 mg/dL COVID-19 (TYE) Negative (Negative) COVID-19 Clin Com See Note Discharge Plan Discharge Clinical Impression: Alcoholic intoxication Patient Disposition: Home, Self-Care Instructions: Alcohol Intoxication (ED) Additional Instructions: Please follow-up with your primary care physician tomorrow. If you have any worsening or new symptoms, please return to the emergency room or call 911 Prescriptions: No Action (DME) walker Misc See Rx Instructions .Route Qty: 1 0RF Rx Instructions: As directed lidocaine 5 % adhesive patch,medicated 1 patch topical DAILY PRN (Reason: pain) Qty: 15 0RF Rx Instructions: leave on most painful area for up to 12 hrs
--- NOTE | 2022-06-13 14:31 | MHC.RECOVRN ---
[facility] has bed availability, referral sent.
--- NOTE | 2022-06-13 15:06 | MHC.RECOVRN ---
Pt currently on the phone with [facility] updating intake information. [facility] has an available bed. Referral sent.
[2022-06-13 15:52] LABS: COVID-19 Test Negative (Negative); IDNOW Serial# 16C4AD1C
[2022-06-13 16:41] LABS: Ethanol 165 mg/dL
[2022-06-13 16:42] VITALS: BP 144/82; PULSE 95; RESP 18; TEMP 36.7; O2SAT 99
--- NOTE | 2022-06-13 17:41 | MHC.CARE ---
Accepted to [facility]. Ethanol level results faxed. Discharge complete, lyft ride pending.
== END 2022-06-13 17:56 | disposition home or self-care (01) ==
PROVIDERS: Emergency Provider Emergency Medicine
DX: F10.129 Alcohol abuse with intoxication, unspecified (principal); Z20.822 Contact with and (suspected) exposure to COVID-19; Y90.6 Blood alcohol level of 120-199 mg/100 ml
CPT/HCPCS: 36415; 82077; 87635; 99284

== ENCOUNTER 2022-06-28 12:20 | Emergency (ER) | payer MEDICAID, SELFPAY ==
--- NOTE | ~2022-06-28 | CT_ITS ---
EXAMINATION: CT HEAD W/O IV CONTRAST CT CERVICAL SPINE W/O IV CONTRAST CLINICAL INFORMATION: History of fall, pain. COMPARISON: Prior CT exams from 05/30/2022. TECHNIQUE: Head - Contiguous axial imaging of the head was performed from the skull base to the vertex without the administration of intravenous contrast, and axial images are reconstructed at 2 mm and 5 mm slice thickness. Cervical spine - A volumetric, helical CT acquisition of the cervical spine was obtained without contrast; in addition to the standard set of axial images, multiplanar reformatted images were provided in the coronal and sagittal imaging planes. This CT examination was performed using dose optimization techniques as appropriate, variously including the following: *Automated exposure control *Adjustment of mA and/or kV according to patient size (this includes techniques or standardized protocols for targeted exams where dose is matched to indication/reason for exam; i.e. extremities or head) *Use of iterative reconstruction technique DLP: 1216 mGy-cm (total) FINDINGS: HEAD: No intracranial hemorrhage, extra-axial fluid collection, focal mass effect or midline shift. The yao-white matter differentiation is maintained. No evidence of an acute major vascular territory infarction. The ventricles have normal size and configuration; no hydrocephalus. There is a jacklyn cisterna magna. The calvarium is intact. The mastoid air cells are well aerated. There is mucosal thickening of inferior maxillary sinuses without air-fluid levels. The orbits, globes and temporomandibular joints are unremarkable. There is an old small left parietal scalp hematoma. CERVICAL SPINE: Mild levocurvature of the cervical spine. The craniocervical junction is normal. The occipital condyles, dens and atlantodental articulation are intact. The vertebral body heights and alignment are maintained. No fractures in the anterior or posterior elements. No prevertebral soft tissue swelling. There is mild right-sided facet osteoarthritis of C2-C3, C3-C4, C4-C5 and C5-C6. No significant stenosis of the central canal or neural foramina. No hematoma in the visualized neck. The examined lung apices are clear. Thyroid gland is normal. CT/CT cervical spine wo IV con IMPRESSION: * No acute intracranial pathology compared to 05/30/2022. * No evidence of fracture or traumatic subluxation in the mildly degenerated cervical spine.
--- NOTE | ~2022-06-28 | XR_ITS ---
EXAMINATION: XR THORACIC SPINE CLINICAL INFORMATION: Thoracic pain after fall COMPARISON: Radiographs from 10/01/[address] from 03/03/2022. TECHNIQUE: 3 views of the thoracic spine were obtained. FINDINGS: Thoracic vertebra have well preserved height and alignment. No evidence of acute fracture or subluxation. There is mild dextrocurvature of the thoracic spine. There are right-sided vertebral osteophytes at T11-T12 and T12-L1. No focal lytic or osteoblastic lesion. There is chronic interstitial lung disease. The mild soft tissue fullness in the right paratracheal area corresponds to mild lymphadenopathy seen on chest CT from 03/03/2022.. XR/XR thoracic spine 3V IMPRESSION: * No acute abnormality. No fracture or malalignment of the thoracic spine. * Chronic interstitial lung disease.
[2022-06-28 12:26] VITALS: BMI 30.7
--- NOTE | 2022-06-28 12:42 | ED.ALCOHOL ---
HPI - Alcohol General Chief Complaint: ETOH/Substance Use Stated Complaint: ETOH INTO, FOUND LAYING IN RAIN PER EMS Time Seen by Provider: 06/28/22 12:27 Source: patient and EMS Mode of arrival: EMS Limitations: other (alcohol intoxication) History of Present Illness HPI narrative: requesting to get out of rain and go to [facility] for ETOH detox complaint: alcohol intoxication Last drink: Just prior to admission Chronic alcohol use: Yes Previous visits for alcohol intoxication: Yes Recent trauma: Yes Associated symptoms: other (states mid back pain for fall yesterday found laying down in rain today) Treatments prior to arrival: none Related Data Previous Rx's Medication Instructions Recorded walker #1 ea 07/05/21 lidocaine 5 % topical patch 1 patch topical DAILY PRN pain #15 03/03/22 ea Allergies Allergy/AdvReac Type Severity Reaction Status Date / Time clams Allergy Severe HIVES, Verified 03/03/22 16:03 DIFFICULTY BREATHING Review of Systems Review of Systems: ROS unable to be obtained due to alcohol abuse [facility] Past Medical History Attestation statement: The following information was validated with the patient. Source: old records reviewed Medical History ETOH abuse High cholesterol HTN (hypertension) Social History Social History Alcohol intake: current Alcohol intake frequency: 3 or more drinks per day Alcohol type: beer and hard liquor Patient Tobacco Use Status: Never used Tobacco Advance Directives: No Advance Directives Information Provided: No service: No Current occupational status: unemployed Physical Exam ED Vital Signs: Vital Signs - 24 hr 06/28/22 13:01 06/28/22 15:29 Temperature 99.9 F 98.4 F Pulse Rate 82 65 Respiratory Rate 14 16 Blood Pressure 119/77 106/72 Pulse Oximetry 96 99 Oxygen Delivery Method Room Air Room Air BMI result Body Mass Index 30.7 Appearance: Alert. ETOH odor, slurred speech. Oriented X3. No acute distress. Unkempt disheveled Eyes: Pupils equal, round and reactive to light. ENT: Pharynx normal. Atraumatic Neck: Normal inspection. Neck supple. CVS: Normal heart rate and rhythm. Pulses normal. Respiratory: No respiratory distress. Breath sounds normal. Abdomen: Soft and nontender. Back: ttp mid thoracic spine no steps off and no trauma seen Skin: Skin warm and dry. Normal skin color. Normal skin turgor. Extremities: No lower extremity edema. No calf ttp Neuro: Oriented X 3. No motor deficit. No sensory deficit. Course Course Course Narrative: signed out to Caprice CAMPOS pending recovery team input for detox - medically cleared Medical Decision Making Medical Decision Making MDM Narrative: 52 yo male with PMH of ETOH abuse, back pain, prior falls with back fractures found laying out in rain after ETOH abuse - wants to go to [facility] he comes in with c/o falling yesterday no obvious trauma NV intact will obtain CT head/cspine, labs, thoracic films, consult CARE team once medically cleared. I have reviewed and interpreted the patient's labs and reviewed and interpreted radiologist readings of studies done in ED today. Differential Diagnosis Differential Diagnoses: The differential diagnosis associated with the presentation includes ETOH intoxication, social support, back contusion, fracture Consult Healthcare Provider Management of the patient was discussed with: Behavioral Health Provider Lab Data [facility] Lab Attestation statement: I reviewed the patient's lab results. Result Diagrams: 06/28/22 14:48 06/28/22 14:48 Labs: Lab Results 06/28/22 06/28/22 06/28/22 Range/Units 14:19 14:48 14:48 WBC 4.1 L (4.8-10.8) X10*3/uL RBC 4.78 (4.60-5.80) X10*6/uL Hgb 14.5 (14.0-18.0) g/dl Hct 43.2 (42.0-52.0) % MCV 90.4 (80.0-98.0) fL MCH 30.3 (27.0-33.0) pg MCHC 33.6 (31.0-36.0) g/dl RDW 12.7 (11.0-16.0) % Plt Count 125 L (160-400) X10*3/uL MPV 11.3 (9.4-12.4) fL Immature Gran % (Auto) 0.2 (0.0-0.4) % Neut % (Auto) 65.1 (45-73) % Lymph % (Auto) 17.2 L (20-40) % [place] % (Auto) 14.0 H (2-11) % Eos % (Auto) 3.0 (0-4) % Baso % (Auto) 0.5 (0-2) % Lymph # (Auto) 0.7 L (1.2-4.9) X10*3/uL [place] # (Auto) 0.6 (0.1-1.2) X10*3/uL Eos # (Auto) 0.1 (0.0-0.4) X10*3/uL Baso # (Auto) 0.0 (0.0-0.2) X10*3/uL Abs Immat Gran (auto) 0.01 (0.00-0.03) X10*3/uL Absolute Neuts (auto) 2.6 (2.0-8.3) x10*3/uL Absolute Nucleated RBC 0.000 (0.0-0.012) X10*3/uL Nucleated RBC % (auto) 0.0 (0.0-0.2) /100WBC Sodium 144 (135-145) mmol/L Potassium 3.6 (3.3-5.1) mmol/L Chloride 110 H (96-108) mmol/L Carbon Dioxide 24 (22-29) mmol/L Anion Gap 14 (12-20) BUN 22 H (9-16) mg/dL Creatinine 0.68 (0.5-1.4) mg/dL Estim Creat Clear Calc 126.6 Estimated GFR > 60 Random Glucose 77 (60-115) mg/dL Calcium 8.5 (8.4-10.2) mg/dL Magnesium 2.1 (1.6-2.6) mg/dL Total Bilirubin 0.5 (0.0-1.0) mg/dL Direct Bilirubin < 0.2 (0.0-0.5) mg/dL AST 43 H (5-37) U/L ALT 43 H (0-40) U/L Alkaline Phosphatase 68 (39-117) U/L Total Creatine Kinase 417 H (38-174) U/L Total Protein 7.1 (6.5-8.0) g/dL Albumin 3.9 (3.5-5.0) g/dL Ethyl Alcohol 181 mg/dL COVID-19 (TYE) Negative (Negative) COVID-19 Clin Com See Note Independent Interpretation I performed an independent interpretation of an: Plain X-Ray and CT Scan Radiology Impression Discussion of test interpretation with radiology: I have reviewed the radiologist's reading. Independent Historian Clinical information obtained from an independent historian. History obtained from or confirmed by: EMS External Record Review External record reviewed: Inpatient record Social Determinants Patient?s care significantly limited by Social Determinants of Health including: Inadequate housing, Unemployment and Other Social Determinant of Health Medications Administered Discontinued Medications Generic Name Dose Route Start Last Admin Trade Name Freq PRN Reason Stop Dose Admin Thiamine HCl 100 mg 06/28/22 12:32 06/28/22 13:57 Thiamine Hcl 100 Mg Tablet PO 06/28/22 12:33 Not Given ONCE ONE Discharge Plan Discharge Clinical Impression: Alcoholic intoxication Qualifiers: Complication of substance-induced condition: uncomplicated Qualified Code(s): F10.920 - Alcohol use, unspecified with intoxication, uncomplicated Patient Disposition: Still a Patient Instructions: Abuse of Alcohol (ED) Additional Instructions: return to ED for any worsening symptoms or concerns Prescriptions: No Action (DME) nathaniel Misc See Rx Instructions .Route Qty: 1 0RF Rx Instructions: As directed lidocaine 5 % adhesive patch,medicated 1 patch topical DAILY PRN (Reason: pain) Qty: 15 0RF Rx Instructions: leave on most painful area for up to 12 hrs
[2022-06-28 13:01] VITALS: BP 119/77; PULSE 82; RESP 14; TEMP 37.7; O2SAT 96
--- NOTE | 2022-06-28 13:54 | MHC.RECOVRN ---
This publicity writer met w/ patient. Patient reports drinking today 4 beers and 1 pint vodka. Patient states has been drinking that amount daily for a decade. Patient states recently was at [facility] and interested in detox, when medically cleared. Patient states no history of ETOH induced seizures. Patient reports no withdrawal s/s at this time. T/W f/u with MV whom reports patient not able to go back to [facility] as patient requires a higher level of care. Patient is currently being worked up and is not medically cleared yet.
[2022-06-28 14:53] LABS: MANUAL DIFF FLAG NO
[2022-06-28 14:54] LABS: COVID-19 Test Negative (Negative); IDNOW Serial# 6674DD1D
[2022-06-28 15:03] LABS: Basophils Percent Auto 0.5 % (0-2); Eosinophils Absolute Auto 0.1 X10*3/uL (0.0-0.4); Hematocrit 43.2 % (42.0-52.0); Hemoglobin 14.5 g/dl (14.0-18.0); Imm Gran Abs Auto 0.01 X10*3/uL (0.00-0.03); Imm Gran Pct Auto 0.2 % (0.0-0.4); Lymphocytes Absolute Auto 0.7 X10*3/uL (1.2-4.9); Lymphocytes Percent Auto 17.2 % (20-40); Mean Corpuscular HGB Conc 33.6 g/dl (31.0-36.0); Mean Corpuscular Hemoglobin 30.3 pg (27.0-33.0); Mean Corpuscular Volume 90.4 fL (80.0-98.0); Mean Platelet Volume 11.3 fL (9.4-12.4); Monocytes Absolute Auto 0.6 X10*3/uL (0.1-1.2); Neutrophils Absolute Auto 2.6 x10*3/uL (2.0-8.3); Neutrophils Percent Auto 65.1 % (45-73); Platelet Count 125 X10*3/uL (160-400); Red Blood Count 4.78 X10*6/uL (4.60-5.80); Red Cell Distribution Width 12.7 % (11.0-16.0); White Blood Count 4.1 X10*3/uL (4.8-10.8)
[2022-06-28 15:21] LABS: Alanine Aminotransferase 43 U/L (0-40); Anion Gap 14 (12-20); Aspartate Amino Transferase 43 U/L (5-37); Bilirubin Direct < 0.2 mg/dL (0.0-0.5); Bilirubin Total 0.5 mg/dL (0.0-1.0); Blood Urea Nitrogen 22 mg/dL (9-16); Calcium 8.5 mg/dL (8.4-10.2); Carbon Dioxide 24 mmol/L (22-29); Chloride 110 mmol/L (96-108); Creatinine Clr Calc Pharmacy 126.6; Estimated Glomerular Filt Rate > 60; Glucose Random 77 mg/dL (60-115); Magnesium 2.1 mg/dL (1.6-2.6); Potassium 3.6 mmol/L (3.3-5.1); Sodium 144 mmol/L (135-145)
[2022-06-28 15:22] LABS: Albumin Level 3.9 g/dL (3.5-5.0); Alkaline Phosphatase 68 U/L (39-117); Ethanol 181 mg/dL; Total Protein 7.1 g/dL (6.5-8.0)
[2022-06-28 15:29] VITALS: BP 106/72; PULSE 65; RESP 16; TEMP 36.9; O2SAT 99
--- NOTE | 2022-06-28 16:00 | MHC.RECOVRN ---
Patient medically cleared, patient requesting placement in detox. Patient reports drinking alcohol daily for past 10 plus years. Patient reports daily drinking 4 beers, 1 pint vodka. Patient states last drink earlier today, drank a few beers and a pint. Patient states has been through detox in the past. Patient reporting no withdrawal symptoms at this time. Patient states no history of alcohol induced seizures. Patient willing to go to other areas outside of [facility] for treatment, including [place]. This teletypewriter installer sending out detox referrals per request.
[2022-06-28 19:43] VITALS: BP 110/69; PULSE 81; RESP 17; TEMP 36.9; O2SAT 94
--- NOTE | 2022-06-28 20:42 | MHC.CARE ---
Pt has intake with [facility]. CARE Team has attempted to reach [facility] starting at 1945 and is awaiting call back from admissions nurse to confirm if pt has been accepted.
== END 2022-06-28 23:30 | disposition other institution (70) ==
PROVIDERS: Emergency Provider Emergency Medicine
DX: F10.120 Alcohol abuse with intoxication, uncomplicated (principal); Y90.6 Blood alcohol level of 120-199 mg/100 ml; I10 Essential (primary) hypertension; E78.5 Hyperlipidemia, unspecified; Z20.822 Contact with and (suspected) exposure to COVID-19
CPT/HCPCS: 70450; 72072; 72125; 80048; 80076; 82077; 82550; 83735; 85025; 87635; 99283; 99284

== ENCOUNTER 2022-07-08 20:26 | Emergency (ER) | payer MEDICAID, SELFPAY ==
[2022-07-08 20:31] VITALS: PULSE 67; O2SAT 96; BMI 28.7
[2022-07-08 20:48] VITALS: BP 137/89; PULSE 72; RESP 18; TEMP 36.4; O2SAT 96
[2022-07-08 21:05] LABS: Appearance Urine Clear; Color Urine Yellow; Glucose Urine UA Negative (Negative); Leukocyte Esterase Urine Negative (Negative); Nitrite Urine Negative (Negative); Specific Gravity - Urine <= 1.005 (1.005-1.025); Urine Blood Negative (Negative); Urine Ketones Negative (Negative); Urine Protein Negative (Neg-Trace)
[2022-07-08 21:25] LABS: Amphetamine Screen Urine Not Detected (Not Detect); Barbiturates, Urine Not Detected (Not Detect); Benzodiazepines Screen Urine Not Detected (Not Detect); Cannabinoid Screen Urine Not Detected (Not Detect); Cocaine Screen Urine Not Detected (Not Detect); Fentanyl, urine Not Detected (Not Detect); Opiate Screen Urine Not Detected (Not Detect); Phencyclidine Screen Urine Not Detected (Not Detect)
--- NOTE | 2022-07-08 21:25 | MHC.RECOVSUP ---
? Reason for consult:ETOH o? Current location:ED06H? o? Identified substance use concern:? -? Seeking ATS (detox) -? Support ? Intervention: o? ATS bed search started/completed/in process o? Community resources provided o? Harm reduction discussion ? Plan: o? Bed search in progress to o? Follow up tomorrow? ? Additional information:PT informed me that he was at [facility] but left AMA this morning, but he does want to go back to detox. I called [facility] and they said to try back in the morning because they aren't doing anymore intakes nunu.
[2022-07-08 22:00] VITALS: BP 140/85; PULSE 69; RESP 16; TEMP 36.2; O2SAT 98
--- NOTE | 2022-07-08 22:00 | MHC.EDTECH ---
2200 rounding done ,pt vitals sign taken ,patient was hungry ,rn serafin said it was ok for patient to eat ,patient had 2 tuna sandwich ,2 can mateo jaja and a pudding for a snack ,patient is resting and in good spirits .
[2022-07-09] VITALS: BP 140/82; PULSE 72; RESP 16; TEMP 36.6; O2SAT 96
--- NOTE | 2022-07-09 00:03 | MHC.EDTECH ---
0000rounding done ,patient vitals sign taken patient awake ,pct attempted drawing labs with no luck ,phlbotomy was called .
[2022-07-09 00:37] LABS: Ethanol 141 mg/dL
--- NOTE | 2022-07-09 00:45 | ED.ALCOHOL ---
HPI - Alcohol General Chief Complaint: ETOH/Substance Use Stated Complaint: etoh Time Seen by Provider: 07/08/22 20:57 Source: patient and EMS Mode of arrival: EMS Limitations: no limitations History of Present Illness HPI narrative: Patient comes to the emergency room via EMS. Patient was found by bystander sleeping in the street. Patient was found drunk. Patient has no complaints, denies any falls. Patient was discharged from [facility] today, requesting to go back today. Patient denies SI or HI Related Data Previous Rx's Medication Instructions Recorded walker #1 ea 07/05/21 lidocaine 5 % topical patch 1 patch topical DAILY PRN pain #15 03/03/22 ea Allergies Allergy/AdvReac Type Severity Reaction Status Date / Time clams Allergy Severe HIVES, Verified 03/03/22 16:03 DIFFICULTY BREATHING Review of Systems Review of Systems: Constitutional : No Weight loss, No Fever, No Chills, No Night Sweats, No Fatigue, No Malaise ENT/Mouth : No Hearing loss, No Ear Pain, No Nasal Congestion, No Sinus Pain, No Hoarseness, No sore throat, No Rhinorrhea, No Swallowing Difficulty Eyes: No Eye Pain, No Swelling, No Redness, No Foreign Body, No Discharge, No Vision Changes Cardiovascular : No Chest Pain, No SOB, No Dyspnea on Exertion, No Orthopnea, No Edema, No Palpitations Respiratory : No Cough, No Sputum, No Wheezing, No Smoke Exposure, No Dyspnea Gastrointestinal : No Nausea, No Vomiting, No Diarrhea, No Constipation, No abdominal Pain, No Hematochezia, No Melena Genitourinary : no irregular bleeding, No Dysuria, No Urinary Frequency, No Hematuria, No Urinary Incontinence, No Urgency, No Flank Pain, No Urinary Flow Changes, No Hesitancy Musculoskeletal : No joint pain, No Myalgias, No Joint Swelling Skin : No Skin Lesions, No rash Neuro : No Weakness, No Numbness, No Paresthesias, No Loss of Consciousness, No Dizziness, No Headache Psych : No Anxiety/Panic, No Depression, No SI/HI/AH/VH, No Social Issues, Heme/Lymph: No Bruising, No Bleeding,No Lymphadenopathy Endocrine : No Polyuria, No Polydipsia, No Temperature Intolerance PMFSH Past Medical History Medical History ETOH abuse High cholesterol HTN (hypertension) Social History Social History Alcohol intake: current Alcohol intake frequency: 3 or more drinks per day Alcohol type: beer and hard liquor Patient Tobacco Use Status: Never used Tobacco Advance Directives: No Advance Directives Information Provided: No service: No Current occupational status: unemployed Physical Exam ED Vital Signs: Vital Signs - 24 hr 07/08/22 20:48 07/08/22 22:00 07/09/22 00:00 Temperature 97.6 F 97.2 F 97.9 F Pulse Rate 72 69 72 Respiratory Rate 18 16 16 Blood Pressure 137/89 140/85 H 140/82 H Pulse Oximetry 96 98 96 Oxygen Delivery Method Room Air Room Air Room Air BMI result Body Mass Index 28.7 Const Other: Appearance: Alert. Oriented X3. No acute distress. Easily arousable Eyes: Pupils equal, round and reactive to light. ENT: Pharynx normal. Neck: Normal inspection. Neck supple. No lymph nodes noted. No crepitus CVS: Normal heart rate and rhythm. Pulses normal. Normal S1 and S2 Respiratory: No respiratory distress. Breath sounds normal. No Wheezing. No rales Abdomen: Soft and nontender. No rigidity. No distention. Skin: Skin warm and dry. Normal skin color. Normal skin turgor. Extremities: No lower extremity edema. No Lacerations. No Rash Neuro: Oriented X 3. No motor deficit. No sensory deficit. Moving all extremities. No slurred speech. CN 2 through 12 grossly intact Psych: calm, cooperative, normal affect Course Course Course Narrative: -patient, cooperative, normal speech -care team/etiquette coach in the morning. -not SI or HI, not on a Section 12 -metabolized to freedom -Physician observation started that 00:40 -sign-out given to Dr. Goetz Medical Decision Making Differential Diagnosis Differential Diagnoses: The differential diagnosis associated with the presentation includes (Alcohol intoxication) Admission/Observation Consideration of admission/observation: Escalation of care including admission/observation considered Lab Data Labs: Lab Results 07/08/22 07/08/22 07/09/22 Range/Units 20:56 20:56 00:13 Urine Color Yellow Urine Appearance Clear Urine pH 6.0 (5.0-9.0) Ur Specific [place] <= 1.005 (1.005-1.025) Urine Protein Negative (Neg-Trace) mg/dL Urine Glucose (UA) Negative (Negative) mg/dL Urine Ketones Negative (Negative) mg/dL Urine Blood Negative (Negative) Urine Nitrite Negative (Negative) Ur Leukocyte Esterase Negative (Negative) Urine Opiates Screen Not Detected (Not Detect) Urine Fentanyl Screen Not Detected (Not Detect) Ur Barbiturates Screen Not Detected (Not Detect) Ur Phencyclidine Scrn Not Detected (Not Detect) Ur Amphetamines Screen Not Detected (Not Detect) U Benzodiazepines Scrn Not Detected (Not Detect) Urine Cocaine Screen Not Detected (Not Detect) U Marijuana (THC) Screen Not Detected (Not Detect) Ethyl Alcohol 141 mg/dL Discharge Plan Discharge Clinical Impression: Alcohol intoxication Patient Disposition: Still a Patient Prescriptions: No Action (NANCY) nathaniel Arriaga See Rx Instructions .Route Qty: 1 0RF Rx Instructions: As directed lidocaine 5 % adhesive patch,medicated 1 patch topical DAILY PRN (Reason: pain) Qty: 15 0RF Rx Instructions: leave on most painful area for up to 12 hrs Interventions: Dundy-Suicide Risk Severity Scale Last Done: 07/09/22 00:44
[2022-07-09 02:00] VITALS: BP 136/80; PULSE 64; RESP 16; TEMP 36.2; O2SAT 96
--- NOTE | 2022-07-09 02:03 | MHC.EDTECH ---
0200 rounding done ,patient sleeping .
[2022-07-09 04:44] VITALS: BP 125/69; PULSE 99; RESP 17; TEMP 36.9; O2SAT 94
[2022-07-09] MEDS: Acetaminophen 325 MG TABLET 650 MG PO (04:48)
[2022-07-09 07:42] VITALS: BP 154/108; PULSE 88; RESP 20; TEMP 36.7; O2SAT 97
--- NOTE | 2022-07-09 08:18 | PC.NURSE ---
PT A+O, HE DENIES PAIN. CIWA 0, PT REQUESTING DETOX, CARE TEAM CONSULT ORDERED, THIS RN WILL FOLLOW-UP WITH CARE TEAM ONCE THEY ARRIVE ON SHIFT. BREAKFAST ORDERED, PT AWARE OF PLAN. WILL CONTINUE TO OBSERVE.
[2022-07-09 08:45] VITALS: BP 165/107; PULSE 81; RESP 20; O2SAT 97
--- NOTE | 2022-07-09 08:59 | PC.NURSE ---
PT WAS SEEN BY BANJO REPAIR PERSON, DISCHARGE PLAN IN PLACE. PT AWARE OF PLAN. BREAKFAST GIVEN.
--- NOTE | 2022-07-09 10:05 | MHC.RECOVRN ---
This check writer met with patient at bedside, patient sitting in chair, drinking coffee. 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 Patient reports no withdrawal symptoms, no tremor, no nausea, no tactile disturbances. Patient is not interested in ATS at this time. Patient reports will d/c to friends home, who is sober and assists patient with managing medications. Patient reports 07/10/22 brother is going to drive patient back to [facility] to live with brother. Patient reports brother is sober. Patient reports no cravings at this time, states is going to take start taking Naltrexone tablets oral, which patient was d/c with from detox. Patient plans to live with brother in [place], reports its a safe, supportive environment for recovery. T/W provided contact information, patient encouraged to call if needs further assistance with addiction/recovery. Provider aware. T/W coordinated Lyft transport to friends home.
== END 2022-07-09 09:37 | disposition home or self-care (01) ==
PROVIDERS: Emergency Provider Emergency Medicine
DX: F10.129 Alcohol abuse with intoxication, unspecified (principal); Y90.6 Blood alcohol level of 120-199 mg/100 ml; Z71.41 Alcohol abuse counseling and surveillance of alcoholic; Z79.899 Other long term (current) drug therapy
CPT/HCPCS: 36415; 80307; 81003; 82077; 99285

== ENCOUNTER 2022-07-14 15:42 | Emergency (ER) | payer MEDICAID, SELFPAY ==
--- NOTE | ~2022-07-14 | CT_ITS ---
EXAMINATION: HEAD CT WITHOUT CONTRAST CERVICAL SPINE CT WITHOUT CONTRAST CLINICAL INFORMATION: Status post fall COMPARISON: CT 05/30/2022 TECHNIQUE: Contiguous axial imaging of the head was performed without the administration of IV contrast. Axial multidetector volumetric images were also performed through the cervical spine without contrast. Multiplanar reconstructed images in coronal and sagittal orientations were submitted. DOSE: 1177 mGy-cm FINDINGS: HEAD: There is no evidence of acute intracranial hemorrhage or tendinitis territorial infarction. No abnormal mass-effect or midline shift. No extra-axial fluid collections. Lemus to white matter differentiation is well preserved. The ventricles are normal in size and configuration. . No acute calvarial fracture. Left greater than right maxillary sinus disease.. Remainder of the sinuses and mastoid air cells are clear. CERVICAL SPINE: There is anatomic alignment of the vertebral bodies and posterior elements. The atlantoaxial and atlantooccipital articulations are maintained. Vertebral body heights and intervertebral disc spaces are maintained. No evidence of acute fracture. No prevertebral soft tissue swelling. Mild biapical pleural parenchymal scarring. No suspicious thyroid findings. CT/CT head/brain wo IV con IMPRESSION: 1. No CT evidence of acute intracranial hemorrhage or edematous territorial infarction. 2. No CT evidence of acute fracture or malalignment in the cervical spine.
--- NOTE | ~2022-07-14 | CT_ITS ---
EXAMINATION: HEAD CT WITHOUT CONTRAST CERVICAL SPINE CT WITHOUT CONTRAST CLINICAL INFORMATION: Status post fall COMPARISON: CT 05/30/2022 TECHNIQUE: Contiguous axial imaging of the head was performed without the administration of IV contrast. Axial multidetector volumetric images were also performed through the cervical spine without contrast. Multiplanar reconstructed images in coronal and sagittal orientations were submitted. DOSE: 1177 mGy-cm FINDINGS: HEAD: There is no evidence of acute intracranial hemorrhage or tendinitis territorial infarction. No abnormal mass-effect or midline shift. No extra-axial fluid collections. Lemus to white matter differentiation is well preserved. The ventricles are normal in size and configuration. . No acute calvarial fracture. Left greater than right maxillary sinus disease.. Remainder of the sinuses and mastoid air cells are clear. CERVICAL SPINE: There is anatomic alignment of the vertebral bodies and posterior elements. The atlantoaxial and atlantooccipital articulations are maintained. Vertebral body heights and intervertebral disc spaces are maintained. No evidence of acute fracture. No prevertebral soft tissue swelling. Mild biapical pleural parenchymal scarring. No suspicious thyroid findings. CT/CT cervical spine wo IV con IMPRESSION: 1. No CT evidence of acute intracranial hemorrhage or edematous territorial infarction. 2. No CT evidence of acute fracture or malalignment in the cervical spine.
--- NOTE | ~2022-07-14 | XR_ITS ---
EXAMINATION: XR CHEST CLINICAL INFORMATION: Fall, trauma, ETOH COMPARISON: CT chest 03/03/2022, chest radiographs 09/28/2021, 08/06/2013 TECHNIQUE: 2 views of the chest were obtained. FINDINGS: Patient slightly rotated. There is diffuse coarsening of the bronchovascular markings. Accentuated interstitial markings also noted on the CT exam. There is no lobar or segmental airspace consolidation. No pneumothorax or pneumomediastinum or effusion. Heart is upper limits of normal size. Vascularity appears within normal. No subcutaneous emphysema or free air beneath the diaphragms. There is a dextrocurvature thoracic spine. No visible acute bony abnormality. XR/XR chest 2V IMPRESSION: 1. Diffuse coarsening bronchovascular markings with accentuated interstitial markings. 2. No lobar or segmental airspace consolidation, pneumothorax, or effusion.
[2022-07-14 15:51] VITALS: BP 144/101; BP 146/96; PULSE 72; RESP 18; TEMP 35.6; BMI 25.8
--- NOTE | 2022-07-14 18:41 | ED_ITS ---
HPI - Alcohol General Chief Complaint: ETOH/Substance Use Stated Complaint: fall with head strike Time Seen by Provider: 07/14/22 18:13 Source: patient and EMS Mode of arrival: EMS History of Present Illness HPI narrative: 52-year-old male with past medical history of ETOH abuse, HLD, HTN, presenting to the ED via EMS s/p mechanical trip and fall with head strike [employer] [employer]. Patient admits to drinking 2 beers and a pint of vodka, and slipping due to wet ground, denies LOC. Denies taking anticoagulation. Denies other illicit substances, SI or HI. Denies neck pain, back pain, chest pain / shortness of breath, abdominal pain, nausea / vomiting. Patient is interested in detox MD complaint: alcohol intoxication Last drink: Hours (ago) Related Data Previous Rx's Medication Instructions Recorded walker #1 ea 07/05/21 lidocaine 5 % topical patch 1 patch topical DAILY PRN pain #15 03/03/22 ea Allergies Allergy/AdvReac Type Severity Reaction Status Date / Time clams Allergy Severe HIVES, Verified 03/03/22 16:03 DIFFICULTY BREATHING Review of Systems Review of Systems: Constitutional: No Fever, No Chills, No Fatigue, No Malaise ENT/Mouth: No Ear Pain, No Nasal Congestion, No Sinus Pain, No Hoarseness, No sore throat, No Rhinorrhea, No Swallowing Difficulty Eyes: No Eye Pain, No Swelling, No Discharge, No Vision Changes Cardiovascular: No Chest Pain, No SOB Respiratory: No Cough, No Sputum, No Wheezing, No Smoke Exposure, No Dyspnea Gastrointestinal: No Nausea, No Vomiting, No Diarrhea, No Constipation, No Abdominal pain Genitourinary: No Dysuria, No Urinary Incontinence/retention Musculoskeletal: No joint pain, No Myalgias, No Joint Swelling Skin: No Skin Lesions, No rash Neuro: No Weakness, No Loss of Consciousness, No Dizziness, + Headache/+head strike Psych: No Anxiety/Panic, No Depression, No SI/HI/AH/VH, No Social Issues Yes all other systems are reviewed and are negative Constitutional: Constitutional: Reports as per [facility] Past Medical History Attestation statement: The following information was validated with the patient. Medical History ETOH abuse High cholesterol HTN (hypertension) Social History Social History Alcohol intake: current Alcohol intake frequency: 3 or more drinks per day Alcohol type: beer and hard liquor Patient Tobacco Use Status: Never used Tobacco Advance Directives: No Advance Directives Information Provided: No service: No Current occupational status: unemployed Physical Exam ED Vital Signs: Vital Signs - 24 hr 07/14/22 15:51 07/14/22 21:27 07/15/22 00:38 Temperature 96.1 F L Pulse Rate 72 87 Respiratory Rate 18 18 16 Blood Pressure 144/101 H 126/73 Pulse Oximetry 100 Oxygen Delivery Method Room Air BMI result Body Mass Index 25.8 Const Other: + ETOH odor on breath General: cooperative, no acute distress and intoxicated appearing Orientation/consciousness: patient oriented x3 Limitations: no limitations HENMT Head: Yes normal to inspection, Yes atraumatic, No Willams's sign and No raccoon eyes Ears: hearing grossly normal bilaterally General nose exam: Normal external nose present Face and sinus: Yes normal facial exam Throat: Yes posterior oropharynx normal and Yes tonsils normal Eyes General: appearance normal, both eyes and all related structures Pupils: Equal, round and reactive pupils present EOM: EOMs intact bilaterally Neck Neck: Yes normal visual inspection and Yes no meningeal signs Resp Effort & Inspection: normal respiratory effort and no respiratory distress Auscultation: clear to auscultation bilaterally Cardio Rate: regular rate Heart sounds: S1 normal heart sound present and S2 normal heart sound present GI Inspection: Yes normal to inspection Palpation (GI): Soft to palpation, nontender, no guarding and not rigid Back/Spine/Pelvis Other: No midline thoracic/lumbar spinous tenderness/step-off or deformity Skin Rashes: no rashes Wounds: no wounds Neuro General: patient oriented x3, tone normal, moves all extremities, no meningeal signs and CN's II-XI intact bilaterally Cranial nerves: Yes Equal, round and reactive pupils present Extrem General: Yes normal to inspection Psych Thought content: suicidality and no homicidality Course Course Course Narrative: CT head/brain wo IV con/CT cervical spine wo IV con IMPRESSION: 1. No CT evidence of acute intracranial hemorrhage or edematous territorial infarction. 2. No CT evidence of acute fracture or malalignment in the cervical spine. XR chest 2V IMPRESSION: 1. Diffuse coarsening bronchovascular markings with accentuated interstitial markings. 2. No lobar or segmental airspace consolidation, pneumothorax, or effusion. -1849-- physician observation initiated as patient needs more time to be evaluated by recovery - patient was evaluated by recovery assistant & there are no available beds tonight, patient will spend the night in the ED & continue detox bed search tomorrow AM -0110--ED care transferred to Dr. Hampton pending detox BS Medical Decision Making Medical Decision Making MDM Narrative: 52-year-old male with past medical history of ETOH abuse, HLD, HTN, presenting to the ED via EMS s/p mechanical trip and fall with head strike [employer]. on exam hypertensive, ETOH odor on breath, toxic aided, nontoxic appearing, A&O x3, no evidence of trauma, no midline or focal neuro deficits. Concern for ETOH intoxication and fall. Rule out ICH/ fractures. Low suspicion for metabolic / infectious etiologies Plan: head/ C-spine CT, drug screen, recovery assistant consult Differential Diagnosis Differential Diagnoses: The differential diagnosis associated with the presentation includes as above Consult Healthcare Provider Management of the patient was discussed with: Behavioral Health Provider Lab Data Labs: Lab Results 07/14/22 07/14/22 Range/Units 19:39 21:27 Urine Opiates Screen Not Detected (Not Detect) Urine Fentanyl Screen Not Detected (Not Detect) Ur Barbiturates Screen Not Detected (Not Detect) Ur Phencyclidine Scrn Not Detected (Not Detect) Ur Amphetamines Screen Not Detected (Not Detect) U Benzodiazepines Scrn Not Detected (Not Detect) Urine Cocaine Screen Not Detected (Not Detect) U Marijuana (THC) Screen Not Detected (Not Detect) COVID-19 (TYE) Negative (Negative) COVID-19 Clin Com See Note Radiology Impression Discussion of test interpretation with radiology: I have reviewed the radiologist's reading. Independent Historian Clinical information obtained from an independent historian. History obtained from or confirmed by: EMS External Record Review External record reviewed: Prior outpatient labs prior ED record Social Determinants Patient?s care significantly limited by Social Determinants of Health including: Low income, Alcoholism and drug addiction in family and Problems related to primary support group Discharge Plan Discharge Clinical Impression: Alcoholic intoxication, Fall Patient Disposition: Still a Patient Prescriptions: No Action (DME) walker Misc See Rx Instructions .Route Qty: 1 0RF Rx Instructions: As directed lidocaine 5 % adhesive patch,medicated 1 patch topical DAILY PRN (Reason: pain) Qty: 15 0RF Rx Instructions: leave on most painful area for up to 12 hrs
[2022-07-14 20:10] LABS: COVID-19 Test Negative (Negative); IDNOW Serial# 55D5AD1C
--- NOTE | 2022-07-14 21:15 | MHC.RECOVSUP ---
? Reason for consult:ETOH o? Current location:ED22? o? Identified substance use concern:? -? Seeking ATS (detox) -? Support ? Intervention: o? ATS bed search started/completed/in process o? Community resources provided o? Harm reduction discussion ? Plan: o? Bed search in progress to o? Follow up tomorrow? ? Additional information:PT is interested in ATS services at [facility], they have no beds currently and said to call back at 9am, please follow up tomorrow, 07/15/22.
[2022-07-14 21:27] VITALS: BP 126/73; PULSE 87; RESP 18; O2SAT 100
[2022-07-14 21:48] LABS: Amphetamine Screen Urine Not Detected (Not Detect); Barbiturates, Urine Not Detected (Not Detect); Benzodiazepines Screen Urine Not Detected (Not Detect); Cannabinoid Screen Urine Not Detected (Not Detect); Cocaine Screen Urine Not Detected (Not Detect); Fentanyl, urine Not Detected (Not Detect); Opiate Screen Urine Not Detected (Not Detect); Phencyclidine Screen Urine Not Detected (Not Detect)
[2022-07-15] VITALS (13 sets, daily range): BP systolic 139–169; BP diastolic 68–118; PULSE 70–86; RESP 14–17; TEMP 36.1–37.1; O2SAT 97–100
--- NOTE | 2022-07-15 09:29 | MHC.RECOVRN ---
This poem writer met w/ patient, patient was laying in bed, awake and alert. Patient reports has been drinking daily, last drink yesterday 4 beers and one pint of Vodka. Patient requesting detox, patient requesting [facility] only. This poem writer to follow up with [facility] for detox bedsearch. ED RN aware.
--- NOTE | 2022-07-15 16:00 | MHC.EDTECH ---
this pct assumed care of patient at 1500 ,patient is awake sitting up in bed ,vitals sign taken ,patient waiting for his ride to go to detox .
--- NOTE | 2022-07-15 16:23 | MHC.RECOVRN ---
This pattern chart writer spoke w/ Milton at [facility], patients detox referral reviewed, Milton was informed that patient has walker to accompany patient to detox. Milton states, next step in the process is for patient to do phone intake. RC will f/u at 6pm with coordinating phone intake.
--- NOTE | 2022-07-15 17:19 | PC.NURSE ---
resting queitly. nad. no tremor. skin pwd. alert. no vomiting. awaits intake for muhammad.
--- NOTE | 2022-07-15 17:57 | MHC.EDTECH ---
patient had a cup of coffee and a can of mateo jaja and a few gram crackers for snack .
--- NOTE | 2022-07-15 20:00 | MHC.EDTECH ---
2000 rounding done ,vitals sign taken ,patient ate 100 % of supper and drank 480 ml fluids ,patient resting and waiting for his ride .
--- NOTE | 2022-07-15 20:11 | PC.NURSE ---
restin quietly. skin pwd. no tremor. plan is for sabina in the am
--- NOTE | 2022-07-15 20:59 | MHC.RECOVSUP ---
? Reason for consult:ETOH o? Current location:ED22[facility]? o? Identified substance use concern:? -? Seeking ATS (detox) -? Support ? Intervention: o? ATS bed search started/completed/in process o? Community resources provided o? Harm reduction discussion ? Plan: o? Bed search in progress to o? Follow up tomorrow? ? Additional information:WILLIAN spoke to Hanh Dee from [facility] and she told me the pt has yet to complete the phone screen, she asked for the Care Team phone number whcih I sent her via email and she is going to have the family services coordinator call in the morning to complete the intake. I will follow up with Hanh in the morning.
--- NOTE | 2022-07-15 23:00 | MHC.EDTECH ---
THIS PCT ASSUMED CARE OF PATIENT AT 2300 .
--- NOTE | 2022-07-15 23:38 | PC.NURSE ---
pt sleeping, respirations are even and unlabored, no tremors at this time
--- NOTE | 2022-07-16 02:02 | MHC.EDTECH ---
0200 rounding patient asleep .
--- NOTE | 2022-07-16 02:49 | PC.NURSE ---
pt continues to sleep on stretcher, equal chest rise noted
--- NOTE | 2022-07-16 04:00 | MHC.EDTECH ---
0400 ROUNDING DONE ,PATIENT SLEEPING .
[2022-07-16 06:00] VITALS: BP 128/89; PULSE 73; RESP 16; TEMP 36.9; O2SAT 97
--- NOTE | 2022-07-16 06:00 | MHC.EDTECH ---
0600 VITALS SIGN TAKEN ,PATIENT AWAKE WAITING FOR BREAKFAST .
== END 2022-07-16 07:31 | disposition home or self-care (01) ==
PROVIDERS: Physician Assistant; Physician Assistant Medical; Emergency Provider Internal Medicine
DX: S09.90XA Unspecified injury of head, initial encounter (principal); R51.9 Headache, unspecified; M54.2 Cervicalgia; F10.129 Alcohol abuse with intoxication, unspecified; I10 Essential (primary) hypertension; Y90.9 Presence of alcohol in blood, level not specified; R06.02 Shortness of breath; R07.89 Other chest pain; W18.30XA Fall on same level, unspecified, initial encounter; Y93.9 Activity, unspecified; Y92.9 Unspecified place or not applicable; Y99.9 Unspecified external cause status; Z20.822 Contact with and (suspected) exposure to COVID-19; Z20.828 Contact with and (suspected) exposure to other viral communicable diseases; Z79.899 Other long term (current) drug therapy
CPT/HCPCS: 70450; 71046; 72125; 80307; 87635; 97161; 99285

== ENCOUNTER 2022-07-28 13:01 | Emergency (ER) | payer MEDICAID, SELFPAY ==
[2022-07-28 13:07] VITALS: BP 90/62; PULSE 103; PULSE 112; RESP 18; TEMP 36.8; O2SAT 94; O2SAT 96; BMI 25.8
--- NOTE | 2022-07-28 13:54 | ED_ITS ---
HPI - General Adult General Chief complaint: ETOH/Substance Use <BETH Vega - Last Filed: 07/28/22 18:19> Stated complaint: ETOH INTOX, WANTS DETOX <BTEH Vega - Last Filed: 07/28/22 18:19> Time Seen by Provider: 07/28/22 13:49 <BETH Vega - Last Filed: 07/28/22 18:19> Source: patient and EMS <BETH Vega Last Filed: 07/28/22 18:19> Mode of arrival: EMS <BETH Vega - Last Filed: 07/28/22 18:19> Limitations: no limitations <BETH Vega Last Filed: 07/28/22 18:19> History of Present Illness HPI narrative: Patient is a 52 year old assigned male at with a history of alcohol abuse presenting to the emergency department today requesting help finding a detox bed. Patient states that he would like help finding somewhere to detox from alcohol in. Patient denies any dizziness, lightheadedness, abdominal pain, nausea, vomiting, fever, chills, blurry vision, double vision, loss of vision, chest pain, difficulty breathing, shortness of breath, back pain, night sweats, pain with urination, increased urinary frequency, increased urinary urgency, blood in his urine or stool, syncope or a near syncopal episode, recent trauma or falls, bowel incontinence, bladder incontinence, bowel retention, bladder retention, or any other complaints at this time. <BETH Vega - Last Filed: 07/28/22 18:19> Severity: mild <BETH Vega Last Filed: 07/28/22 18:19> Severity scale (1-10): 1 <BETH Vega Last Filed: 07/28/22 18:19> Relieving factors: none <BETH Vega Last Filed: 07/28/22 18:19> Exacerbating factors: none <BETH Vega Last Filed: 07/28/22 18:19> Associated symptoms: denies other symptoms <BETH Vega Last Filed: 07/28/22 18:19> Treatments prior to arrival: none <BETH Vega Last Filed: 07/28/22 18:19> Related Data Home medications: Previous Rx's Medication Instructions Recorded walker #1 ea 07/05/21 lidocaine 5 % topical patch 1 patch topical DAILY PRN pain #15 03/03/22 ea <BETH Vega - Last Filed: 07/28/22 18:19> Allergies/adverse reactions: Allergies Allergy/AdvReac Type Severity Reaction Status Date / Time clams Allergy Severe HIVES, Verified 03/03/22 16:03 DIFFICULTY BREATHING <BETH Vega - Last Filed: 07/28/22 18:19> Review of Systems Constitutional: Constitutional: Reports no additional constitutional complaints, Denies chills, Denies fever(s) and Denies night sweats <BETH Vega Last Filed: 07/28/22 18:19> Eyes: Eyes: Reports no additional eye complaints, Denies blurry vision, Denies change in vision, Denies diplopia, Denies eye discharge, Denies loss of vision and Denies eye pain <BETH Vega Last Filed: 07/28/22 18:19> ENT: Denies dizziness <BETH Vega - Last Filed: 07/28/22 18:19> Cardiovascular: Cardiovascular: Reports no additional cardiovascular complaints, Denies chest pain, Denies lightheadedness, Denies Loss of Conscious ness and Denies dyspnea <BETH Vega - Last Filed: 07/28/22 18:19> Respiratory: Respiratory: Reports no additional respiratory complaints and Denies dyspnea <BETH Vega - Last Filed: 07/28/22 18:19> Gastrointestinal: Gastrointestinal: Reports no additional gastrointestinal complaints, Denies abdominal pain, Denies melena, Denies hematochezia, Denies change in bowel habits and Denies change in stool character <BETH Vega Last Filed: 07/28/22 18:19> Genitourinary: Genitourinary: Reports no additional male genitourinary com plaints, Denies hematuria, Denies oliguria, Denies difficulty urinating, Denies dysuria, Denies urinary frequency, Denies urinary hesitancy, Denies urinary incontinence and Denies urinary urgency <BETH Vega - Last Filed: 07/28/22 18:19> Musculoskeletal: Musculoskeletal: Reports no additional musculoskeletal complaints, Denies numbness and Denies tingling <BETH Vega - Last Filed: 07/28/22 18:19> Neurologic: Denies dizziness, Denies loss of vision, Denies numbness and Denies tingling <BETH Vgea - Last Filed: 07/28/22 18:19> Psychiatric: Psychiatric: Reports no additional psychiatric complaints <BETH Vega - Last Filed: 07/28/22 18:19> Endocrine: Endocrine: Reports no additional endocrine complaints <BETH Vega - Last Filed: 07/28/22 18:19> Hematologic/Lymphatic: Hematologic/Lymphatic: Reports no additional hematologic/lymphatic complaints <BETH Vega - Last Filed: 07/28/22 18:19> Allergic/Immunologic: Allergic/Immunologic: Reports no additional allergic/immunologic complaints <BETH Vega - Last Filed: 07/28/22 18:19> [facility] Past Medical History Attestation statement: The following information was validated with the patient. <BETH Vega - Last Filed: 07/28/22 18:19> Source: old records reviewed and nursing notes reviewed <BETH Vega - Last Filed: 07/28/22 18:19> Medical History: Medical History ETOH abuse High cholesterol HTN (hypertension) <BETH Vega - Last Filed: 07/28/22 18:19> Social History Social History: Social History Alcohol intake: current Alcohol intake frequency: 3 or more drinks per day Alcohol type: beer and hard liquor Patient Tobacco Use Status: Never used Tobacco Smoked in Last 30 Days: Yes Use of substances other than those prescribed or required for medical reasons: No Advance Directives: No Advance Directives Information Provided: No service: No Current occupational status: unemployed <BETH Vega - Last Filed: 07/28/22 18:19> Physical Exam ED Vital Signs: Vital Signs - 24 hr 07/28/22 13:07 07/28/22 19:42 07/29/22 02:09 Temperature 98.3 F 99.0 F 98.7 F Pulse Rate 103 H 97 83 Respiratory Rate 18 18 Blood Pressure 90/62 111/72 106/73 Pulse Oximetry 96 96 96 Oxygen Delivery Method Room Air Room Air Room Air 07/29/22 05:26 07/29/22 07:35 Temperature 98.4 F Pulse Rate 91 97 Respiratory Rate 17 18 Blood Pressure 107/68 110/95 H Pulse Oximetry 95 96 Oxygen Delivery Method Room Air Room Air BMI result Body Mass Index 25.8 <BETH Vega - Last Filed: 07/28/22 18:19> Vital Signs - 24 hr 07/28/22 13:07 07/28/22 19:42 07/29/22 02:09 Temperature 98.3 F 99.0 F 98.7 F Pulse Rate 103 H 97 83 Respiratory Rate 18 18 Blood Pressure 90/62 111/72 106/73 Pulse Oximetry 96 96 96 Oxygen Delivery Method Room Air Room Air Room Air 07/29/22 05:26 07/29/22 07:35 Temperature 98.4 F Pulse Rate 91 97 Respiratory Rate 17 18 Blood Pressure 107/68 110/95 H Pulse Oximetry 95 96 Oxygen Delivery Method Room Air Room Air BMI result Body Mass Index 25.8 <Sparkle Curtis CNP - Last Filed: 07/29/22 09:13> Vital Signs - 24 hr 07/28/22 13:07 07/28/22 19:42 07/29/22 02:09 Temperature 98.3 F 99.0 F 98.7 F Pulse Rate 103 H 97 83 Respiratory Rate 18 18 Blood Pressure 90/62 111/72 106/73 Pulse Oximetry 96 96 96 Oxygen Delivery Method Room Air Room Air Room Air 07/29/22 05:26 07/29/22 07:35 Temperature 98.4 F Pulse Rate 91 97 Respiratory Rate 17 18 Blood Pressure 107/68 110/95 H Pulse Oximetry 95 96 Oxygen Delivery Method Room Air Room Air BMI result Body Mass Index 25.8 <Adán Celestin MD - Last Filed: 08/01/22 11:27> Const General: cooperative, no acute distress, alert and awake <BETH Vega - Last Filed: 07/28/22 18:19> Nutritional Appearance: well nourished <BETH Vega - Last Filed: 07/28/22 18:19> Orientation/consciousness: patient oriented x3 <Imra Daniel LA - Last Filed: 07/28/22 18:19> Limitations: no limitations <Irma Daniel LA - Last Filed: 07/28/22 18:19> HENMT Head: Yes normal to inspection and Yes atraumatic <Irma Daniel LA - Last Filed: 07/28/22 18:19> Ears: hearing grossly normal bilaterally and external ears normal <Irma Daniel LA - Last Filed: 07/28/22 18:19> General nose exam: Normal external nose present, no nasal discharge noted and no epistaxis <Irma Daniel LA - Last Filed: 07/28/22 18:19> Face and sinus: Yes normal facial exam, No abrasion and No laceration <Irma Daniel LA - Last Filed: 07/28/22 18:19> Mouth: Normal oral and palatal mucosa present, no drooling and no muffled voice <Irma Daniel LA - Last Filed: 07/28/22 18:19> Eyes General: appearance normal, both eyes and all related structures <Irma Daniel LA - Last Filed: 07/28/22 18:19> Periorbital: periorbital findings normal <Irma Daniel LA - Last Filed: 07/28/22 18:19> Eyelids: Yes eyelids normal <Irma Daniel LA - Last Filed: 07/28/22 18:19> Conjunctivae: conjunctivae normal <Irma Daniel LA - Last Filed: 07/28/22 18:19> Pupils: Equal, round and reactive pupils present <Irma Daniel LA - Last Filed: 07/28/22 18:19> EOM: EOMs intact bilaterally <Irma Daniel PA - Last Filed: 07/28/22 18:19> Neck Neck: Yes normal visual inspection, Yes full ROM and Yes no lymphadenopathy <Irma Daniel LA - Last Filed: 07/28/22 18:19> Chest Chest palpation & inspection: normal inspection of the chest <Irma Daniel LA - Last Filed: 07/28/22 18:19> Resp Effort & Inspection: normal respiratory effort and able to speak in complete sentences <Irma Nolanmiguel PA - Last Filed: 07/28/22 18:19> Auscultation: clear to auscultation bilaterally <Irma Daniel PA - Last Filed: 07/28/22 18:19> Cardio Rate: regular rate <Irma Daniel PA - Last Filed: 07/28/22 18:19> Rhythm: regular rhythm <Irma Daniel PA - Last Filed: 07/28/22 18:19> GI Inspection: Yes normal to inspection <Irma Daniel PA - Last Filed: 07/28/22 18:19> Palpation (GI): Soft to palpation, not firm, nontender, no guarding and not rigid <Irma Nolanmiguel PA - Last Filed: 07/28/22 18:19> Neuro General: patient oriented x3 and moves all extremities <Irma Nolanmiguel PA - Last Filed: 07/28/22 18:19> Cranial nerves: Yes Equal, round and reactive pupils present <Irma Nolanmiguel PA - Last Filed: 07/28/22 18:19> Cognition (Neuro): normal cognition <Irma Daniel PA - Last Filed: 07/28/22 18:19> Motor exam (neuro): 5/5 motor strength present throughout <Irma Daniel PA - Last Filed: 07/28/22 18:19> Sensory Exam: Normal double simultaneous stimulation for sensation <Irma Daniel PA - Last Filed: 07/28/22 18:19> Coordination: [id number] test normal <Irma Nolanmiguel PA - Last Filed: 07/28/22 18 :19> Extrem General: Yes normal to inspection, Yes full ROM and Yes capillary refill normal <Irma Nolanmiguel PA - Last Filed: 07/28/22 18:19> Psych Appearance: grossly normal <Irma Nolanmiguel PA - Last Filed: 07/28/22 18:19> Mental Status: mental status grossly normal <Irma Nolanmiguel PA - Last Filed: 07/28/22 18:19> Affect: normal affect <Irma Nolanmiguel PA - Last Filed: 07/28/22 18:19> Attitude: cooperative <Irmasb Nolanmiguel PA - Last Filed: 07/28/22 18:19> Thought process: Normal thought process present <BETH Vega - Last Filed: 07/28/22 18:19> Thought content: Normal thought content present <BETH Vega - Last Filed: 07/28/22 18:19> Insight: Good insight present (Psych) <BETH Vega - Last Filed: 07/28/22 18:19> Course Reevaluation(s) Reevaluation #1: Patient was evaluated by care team. At this time he is stable, without any physical complaints. Patient is going to be discharged, care team arranging for ride to his friend's house so that he may pickle processor his walker, then he will contact care team by phone we will provide a lift for him to get to [facility]. Patient is agreeable with plan of care. <Sparkle Curtis CNP - Last Filed: 07/29/22 09:13> Time: 09:12 <Sparkle Curtis CNP - Last Filed: 07/29/22 09:13> Medical Decision Making Medical Decision Making [facility] Narrative: Patient is a 52 year old assigned male at with a history of alcohol abuse presenting to the emergency department today requesting alcohol detox. Patient's physical exam was unremarkable. Patient's blood work was unremarkable. I explained my physical exam findings as well as all test results to the patient. I answered all questions asked by the patient. Patient is awaiting the recovery team for detox placement. <BETH Vega - Last Filed: 07/28/22 18:19> Differential Diagnosis Differential Diagnoses: The differential diagnosis associated with the presentation includes <BETH Vega - Last Filed: 07/28/22 18:19> alcohol intoxication, requesting detox <BETH Vega Last Filed: 07/28/22 18:19> Lab Data [facility] Lab Attestation statement: I reviewed the patient's lab results. <BETH Vega Last Filed: 07/28/22 18:19> Result Diagrams: 07/28/22 14:57 07/28/22 14:57 <BETH Vega Last Filed: 07/28/22 18:19> Labs: Lab Results 07/28/22 07/28/22 07/28/22 Range/Units 14:57 14:57 20:34 WBC 6.2 (4.8-10.8) X10*3/uL RBC 4.88 (4.60-5.80) X10*6/uL Hgb 14.6 (14.0-18.0) g/dl Hct 43.1 (42.0-52.0) % MCV 88.3 (80.0-98.0) fL MCH 29.9 (27.0-33.0) pg MCHC 33.9 (31.0-36.0) g/dl RDW 13.1 (11.0-16.0) % Plt Count 134 L (160-400) X10*3/uL MPV 10.9 (9.4-12.4) fL Immature Gran % (Auto) 0.2 (0.0-0.4) % Neut % (Auto) 71.2 (45-73) % Lymph % (Auto) 13.5 L (20-40) % [place] % (Auto) 13.0 H (2-11) % Eos % (Auto) 1.8 (0-4) % Baso % (Auto) 0.3 (0-2) % Lymph # (Auto) 0.8 L (1.2-4.9) X10*3/uL [place] # (Auto) 0.8 (0.1-1.2) X10*3/uL Eos # (Auto) 0.1 (0.0-0.4) X10*3/uL Baso # (Auto) 0.0 (0.0-0.2) X10*3/uL Abs Immat Gran (auto) 0.01 (0.00-0.03) X10*3/uL Absolute Neuts (auto) 4.4 (2.0-8.3) x10*3/uL Absolute Nucleated RBC 0.000 (0.0-0.012) X10*3/uL Nucleated RBC % (auto) 0.0 (0.0-0.2) /100WBC Sodium 144 (135-145) mmol/L Potassium 3.6 (3.3-5.1) mmol/L Chloride 110 H (96-108) mmol/L Carbon Dioxide 20 L (22-29) mmol/L Anion Gap 18 (12-20) BUN 32 H (9-16) mg/dL Creatinine 0.89 (0.5-1.4) mg/dL Estim Creat Clear Calc 87.6 Estimated GFR > 60 Random Glucose 74 (60-115) mg/dL Calcium 8.5 (8.4-10.2) mg/dL Total Bilirubin 0.7 (0.0-1.0) mg/dL AST 39 H (5-37) U/L ALT 38 (0-40) U/L Alkaline Phosphatase 64 (39-117) U/L Total Protein 7.0 (6.5-8.0) g/dL Albumin 3.9 (3.5-5.0) g/dL Urine Color Dark Yellow Urine Appearance Clear Urine pH 5.5 (5.0-9.0) Ur Specific [place] 1.025 (1.005-1.025) Urine Protein 30 (1+) H (Neg-Trace) mg/dL Urine Glucose (UA) Negative (Negative) mg/dL Urine Ketones Trace (Negative) mg/dL Urine Blood Negative (Negative) Urine Nitrite Negative (Negative) Ur Leukocyte Esterase Negative (Negative) Urine RBC 0-2 (0-2) /HPF Urine WBC 0-5 (0-5) /HPF Ur Squamous Epith Cells 0-2 (0-2) /HPF Urine Bacteria None Seen (None Seen) Hyaline Casts 6-10 (0-2) /LPF Salicylates < 5.0 L (15-30) mg/dL Urine Opiates Screen (Not Detect) Urine Fentanyl Screen (Not Detect) Acetaminophen < 17 (<30) mcg/mL Ur Barbiturates Screen (Not Detect) Ur Phencyclidine Scrn (Not Detect) Ur Amphetamines Screen (Not Detect) U Benzodiazepines Scrn (Not Detect) Urine Cocaine Screen (Not Detect) U Marijuana (THC) Screen (Not Detect) Ethyl Alcohol 178 mg/dL 07/28/22 Range/Units 20:34 WBC (4.8-10.8) X10*3/uL RBC (4.60-5.80) X10*6/uL Hgb (14.0-18.0) g/dl Hct (42.0-52.0) % MCV (80.0-98.0) fL MCH (27.0-33.0) pg MCHC (31.0-36.0) g/dl RDW (11.0-16.0) % Plt Count (160-400) X10*3/uL MPV (9.4-12.4) fL Immature Gran % (Auto) (0.0-0.4) % Neut % (Auto) (45-73) % Lymph % (Auto) (20-40) % [place] % (Auto) (2-11) % Eos % (Auto) (0-4) % Baso % (Auto) (0-2) % Lymph # (Auto) (1.2-4.9) X10*3/uL [place] # (Auto) (0.1-1.2) X10*3/uL Eos # (Auto) (0.0-0.4) X10*3/uL Baso # (Auto) (0.0-0.2) X10*3/uL Abs Immat Gran (auto) (0.00-0.03) X10*3/uL Absolute Neuts (auto) (2.0-8.3) x10*3/uL Absolute Nucleated RBC (0.0-0.012) X10*3/uL Nucleated RBC % (auto) (0.0-0.2) /100WBC Sodium (135-145) mmol/L Potassium (3.3-5.1) mmol/L Chloride (96-108) mmol/L Carbon Dioxide (22-29) mmol/L Anion Gap (12-20) BUN (9-16) mg/dL Creatinine (0.5-1.4) mg/dL Estim Creat Clear Calc Estimated GFR Random Glucose (60-115) mg/dL Calcium (8.4-10.2) mg/dL Total Bilirubin (0.0-1.0) mg/dL AST (5-37) U/L ALT (0-40) U/L Alkaline Phosphatase (39-117) U/L Total Protein (6.5-8.0) g/dL Albumin (3.5-5.0) g/dL Urine Color Urine Appearance Urine pH (5.0-9.0) Ur Specific [place] (1.005-1.025) Urine Protein (Neg-Trace) mg/dL Urine Glucose (UA) (Negative) mg/dL Urine Ketones (Negative) mg/dL Urine Blood (Negative) Urine Nitrite (Negative) Ur Leukocyte Esterase (Negative) Urine RBC (0-2) /HPF Urine WBC (0-5) /HPF Ur Squamous Epith Cells (0-2) /HPF Urine Bacteria (None Seen) Hyaline Casts (0-2) /LPF Salicylates (15-30) mg/dL Urine Opiates Screen Not Detected (Not Detect) Urine Fentanyl Screen Not Detected (Not Detect) Acetaminophen (<30) mcg/mL Ur Barbiturates Screen Not Detected (Not Detect) Ur Phencyclidine Scrn Not Detected (Not Detect) Ur Amphetamines Screen Not Detected (Not Detect) U Benzodiazepines Scrn Not Detected (Not Detect) Urine Cocaine Screen Not Detected (Not Detect) U Marijuana (THC) Screen Not Detected (Not Detect) Ethyl Alcohol mg/dL <BETH Vega - Last Filed: 07/28/22 18:19> Lab Results 07/28/22 07/28/22 07/28/22 Range/Units 14:57 14:57 20:34 WBC 6.2 (4.8-10.8) X10*3/uL RBC 4.88 (4.60-5.80) X10*6/uL Hgb 14.6 (14.0-18.0) g/dl Hct 43.1 (42.0-52.0) % MCV 88.3 (80.0-98.0) fL MCH 29.9 (27.0-33.0) pg MCHC 33.9 (31.0-36.0) g/dl RDW 13.1 (11.0-16.0) % Plt Count 134 L (160-400) X10*3/uL MPV 10.9 (9.4-12.4) fL Immature Gran % (Auto) 0.2 (0.0-0.4) % Neut % (Auto) 71.2 (45-73) % Lymph % (Auto) 13.5 L (20-40) % [place] % (Auto) 13.0 H (2-11) % Eos % (Auto) 1.8 (0-4) % Baso % (Auto) 0.3 (0-2) % Lymph # (Auto) 0.8 L (1.2-4.9) X10*3/uL [place] # (Auto) 0.8 (0.1-1.2) X10*3/uL Eos # (Auto) 0.1 (0.0-0.4) X10*3/uL Baso # (Auto) 0.0 (0.0-0.2) X10*3/uL Abs Immat Gran (auto) 0.01 (0.00-0.03) X10*3/uL Absolute Neuts (auto) 4.4 (2.0-8.3) x10*3/uL Absolute Nucleated RBC 0.000 (0.0-0.012) X10*3/uL Nucleated RBC % (auto) 0.0 (0.0-0.2) /100WBC Sodium 144 (135-145) mmol/L Potassium 3.6 (3.3-5.1) mmol/L Chloride 110 H (96-108) mmol/L Carbon Dioxide 20 L (22-29) mmol/L Anion Gap 18 (12-20) BUN 32 H (9-16) mg/dL Creatinine 0.89 (0.5-1.4) mg/dL Estim Creat Clear Calc 87.6 Estimated GFR > 60 Random Glucose 74 (60-115) mg/dL Calcium 8.5 (8.4-10.2) mg/dL Total Bilirubin 0.7 (0.0-1.0) mg/dL AST 39 H (5-37) U/L ALT 38 (0-40) U/L Alkaline Phosphatase 64 (39-117) U/L Total Protein 7.0 (6.5-8.0) g/dL Albumin 3.9 (3.5-5.0) g/dL Urine Color Dark Yellow Urine Appearance Clear Urine pH 5.5 (5.0-9.0) Ur Specific [place] 1.025 (1.005-1.025) Urine Protein 30 (1+) H (Neg-Trace) mg/dL Urine Glucose (UA) Negative (Negative) mg/dL Urine Ketones Trace (Negative) mg/dL Urine Blood Negative (Negative) Urine Nitrite Negative (Negative) Ur Leukocyte Esterase Negative (Negative) Urine RBC 0-2 (0-2) /HPF Urine WBC 0-5 (0-5) /HPF Ur Squamous Epith Cells 0-2 (0-2) /HPF Urine Bacteria None Seen (None Seen) Hyaline Casts 6-10 (0-2) /LPF Salicylates < 5.0 L (15-30) mg/dL Urine Opiates Screen (Not Detect) Urine Fentanyl Screen (Not Detect) Acetaminophen < 17 (<30) mcg/mL Ur Barbiturates Screen (Not Detect) Ur Phencyclidine Scrn (Not Detect) Ur Amphetamines Screen (Not Detect) U Benzodiazepines Scrn (Not Detect) Urine Cocaine Screen (Not Detect) U Marijuana (THC) Screen (Not Detect) Ethyl Alcohol 178 mg/dL 07/28/22 Range/Units 20:34 WBC (4.8-10.8) X10*3/uL RBC (4.60-5.80) X10*6/uL Hgb (14.0-18.0) g/dl Hct (42.0-52.0) % MCV (80.0-98.0) fL MCH (27.0-33.0) pg MCHC (31.0-36.0) g/dl RDW (11.0-16.0) % Plt Count (160-400) X10*3/uL MPV (9.4-12.4) fL Immature Gran % (Auto) (0.0-0.4) % Neut % (Auto) (45-73) % Lymph % (Auto) (20-40) % [place] % (Auto) (2-11) % Eos % (Auto) (0-4) % Baso % (Auto) (0-2) % Lymph # (Auto) (1.2-4.9) X10*3/uL [place] # (Auto) (0.1-1.2) X10*3/uL Eos # (Auto) (0.0-0.4) X10*3/uL Baso # (Auto) (0.0-0.2) X10*3/uL Abs Immat Gran (auto) (0.00-0.03) X10*3/uL Absolute Neuts (auto) (2.0-8.3) x10*3/uL Absolute Nucleated RBC (0.0-0.012) X10*3/uL Nucleated RBC % (auto) (0.0-0.2) /100WBC Sodium (135-145) mmol/L Potassium (3.3-5.1) mmol/L Chloride (96-108) mmol/L Carbon Dioxide (22-29) mmol/L Anion Gap (12-20) BUN (9-16) mg/dL Creatinine (0.5-1.4) mg/dL Estim Creat Clear Calc Estimated GFR Random Glucose (60-115) mg/dL Calcium (8.4-10.2) mg/dL Total Bilirubin (0.0-1.0) mg/dL AST (5-37) U/L ALT (0-40) U/L Alkaline Phosphatase (39-117) U/L Total Protein (6.5-8.0) g/dL Albumin (3.5-5.0) g/dL Urine Color Urine Appearance Urine pH (5.0-9.0) Ur Specific [place] (1.005-1.025) Urine Protein (Neg-Trace) mg/dL Urine Glucose (UA) (Negative) mg/dL Urine Ketones (Negative) mg/dL Urine Blood (Negative) Urine Nitrite (Negative) Ur Leukocyte Esterase (Negative) Urine RBC (0-2) /HPF Urine WBC (0-5) /HPF Ur Squamous Epith Cells (0-2) /HPF Urine Bacteria (None Seen) Hyaline Casts (0-2) /LPF Salicylates (15-30) mg/dL Urine Opiates Screen Not Detected (Not Detect) Urine Fentanyl Screen Not Detected (Not Detect) Acetaminophen (<30) mcg/mL Ur Barbiturates Screen Not Detected (Not Detect) Ur Phencyclidine Scrn Not Detected (Not Detect) Ur Amphetamines Screen Not Detected (Not Detect) U Benzodiazepines Scrn Not Detected (Not Detect) Urine Cocaine Screen Not Detected (Not Detect) U Marijuana (THC) Screen Not Detected (Not Detect) Ethyl Alcohol mg/dL <Sparkle Curtis, RUPA - Last Filed: 07/29/22 09:13> Lab Results 07/28/22 07/28/22 07/28/22 Range/Units 14:57 14:57 20:34 WBC 6.2 (4.8-10.8) X10*3/uL RBC 4.88 (4.60-5.80) X10*6/uL Hgb 14.6 (14.0-18.0) g/dl Hct 43.1 (42.0-52.0) % MCV 88.3 (80.0-98.0) fL MCH 29.9 (27.0-33.0) pg MCHC 33.9 (31.0-36.0) g/dl RDW 13.1 (11.0-16.0) % Plt Count 134 L (160-400) X10*3/uL MPV 10.9 (9.4-12.4) fL Immature Gran % (Auto) 0.2 (0.0-0.4) % Neut % (Auto) 71.2 (45-73) % Lymph % (Auto) 13.5 L (20-40) % [place] % (Auto) 13.0 H (2-11) % Eos % (Auto) 1.8 (0-4) % Baso % (Auto) 0.3 (0-2) % Lymph # (Auto) 0.8 L (1.2-4.9) X10*3/uL [place] # (Auto) 0.8 (0.1-1.2) X10*3/uL Eos # (Auto) 0.1 (0.0-0.4) X10*3/uL Baso # (Auto) 0.0 (0.0-0.2) X10*3/uL Abs Immat Gran (auto) 0.01 (0.00-0.03) X10*3/uL Absolute Neuts (auto) 4.4 (2.0-8.3) x10*3/uL Absolute Nucleated RBC 0.000 (0.0-0.012) X10*3/uL Nucleated RBC % (auto) 0.0 (0.0-0.2) /100WBC Sodium 144 (135-145) mmol/L Potassium 3.6 (3.3-5.1) mmol/L Chloride 110 H (96-108) mmol/L Carbon Dioxide 20 L (22-29) mmol/L Anion Gap 18 (12-20) BUN 32 H (9-16) mg/dL Creatinine 0.89 (0.5-1.4) mg/dL Estim Creat Clear Calc 87.6 Estimated GFR > 60 Random Glucose 74 (60-115) mg/dL Calcium 8.5 (8.4-10.2) mg/dL Total Bilirubin 0.7 (0.0-1.0) mg/dL AST 39 H (5-37) U/L ALT 38 (0-40) U/L Alkaline Phosphatase 64 (39-117) U/L Total Protein 7.0 (6.5-8.0) g/dL Albumin 3.9 (3.5-5.0) g/dL Urine Color Dark Yellow Urine Appearance Clear Urine pH 5.5 (5.0-9.0) Ur Specific [place] 1.025 (1.005-1.025) Urine Protein 30 (1+) H (Neg-Trace) mg/dL Urine Glucose (UA) Negative (Negative) mg/dL Urine Ketones Trace (Negative) mg/dL Urine Blood Negative (Negative) Urine Nitrite Negative (Negative) Ur Leukocyte Esterase Negative (Negative) Urine RBC 0-2 (0-2) /HPF Urine WBC 0-5 (0-5) /HPF Ur Squamous Epith Cells 0-2 (0-2) /HPF Urine Bacteria None Seen (None Seen) Hyaline Casts 6-10 (0-2) /LPF Salicylates < 5.0 L (15-30) mg/dL Urine Opiates Screen (Not Detect) Urine Fentanyl Screen (Not Detect) Acetaminophen < 17 (<30) mcg/mL Ur Barbiturates Screen (Not Detect) Ur Phencyclidine Scrn (Not Detect) Ur Amphetamines Screen (Not Detect) U Benzodiazepines Scrn (Not Detect) Urine Cocaine Screen (Not Detect) U Marijuana (THC) Screen (Not Detect) Ethyl Alcohol 178 mg/dL 07/28/22 Range/Units 20:34 WBC (4.8-10.8) X10*3/uL RBC (4.60-5.80) X10*6/uL Hgb (14.0-18.0) g/dl Hct (42.0-52.0) % MCV (80.0-98.0) fL MCH (27.0-33.0) pg MCHC (31.0-36.0) g/dl RDW (11.0-16.0) % Plt Count (160-400) X10*3/uL MPV (9.4-12.4) fL Immature Gran % (Auto) (0.0-0.4) % Neut % (Auto) (45-73) % Lymph % (Auto) (20-40) % [place] % (Auto) (2-11) % Eos % (Auto) (0-4) % Baso % (Auto) (0-2) % Lymph # (Auto) (1.2-4.9) X10*3/uL [place] # (Auto) (0.1-1.2) X10*3/uL Eos # (Auto) (0.0-0.4) X10*3/uL Baso # (Auto) (0.0-0.2) X10*3/uL Abs Immat Gran (auto) (0.00-0.03) X10*3/uL Absolute Neuts (auto) (2.0-8.3) x10*3/uL Absolute Nucleated RBC (0.0-0.012) X10*3/uL Nucleated RBC % (auto) (0.0-0.2) /100WBC Sodium (135-145) mmol/L Potassium (3.3-5.1) mmol/L Chloride (96-108) mmol/L Carbon Dioxide (22-29) mmol/L Anion Gap (12-20) BUN (9-16) mg/dL Creatinine (0.5-1.4) mg/dL Estim Creat Clear Calc Estimated GFR Random Glucose (60-115) mg/dL Calcium (8.4-10.2) mg/dL Total Bilirubin (0.0-1.0) mg/dL AST (5-37) U/L ALT (0-40) U/L Alkaline Phosphatase (39-117) U/L Total Protein (6.5-8.0) g/dL Albumin (3.5-5.0) g/dL Urine Color Urine Appearance Urine pH (5.0-9.0) Ur Specific [place] (1.005-1.025) Urine Protein (Neg-Trace) mg/dL Urine Glucose (UA) (Negative) mg/dL Urine Ketones (Negative) mg/dL Urine Blood (Negative) Urine Nitrite (Negative) Ur Leukocyte Esterase (Negative) Urine RBC (0-2) /HPF Urine WBC (0-5) /HPF Ur Squamous Epith Cells (0-2) /HPF Urine Bacteria (None Seen) Hyaline Casts (0-2) /LPF Salicylates (15-30) mg/dL Urine Opiates Screen Not Detected (Not Detect) Urine Fentanyl Screen Not Detected (Not Detect) Acetaminophen (<30) mcg/mL Ur Barbiturates Screen Not Detected (Not Detect) Ur Phencyclidine Scrn Not Detected (Not Detect) Ur Amphetamines Screen Not Detected (Not Detect) U Benzodiazepines Scrn Not Detected (Not Detect) Urine Cocaine Screen Not Detected (Not Detect) U Marijuana (THC) Screen Not Detected (Not Detect) Ethyl Alcohol mg/dL <Adán Celestin MD - Last Filed: 08/01/22 11:27> Attestation Attending Attestation: I reviewed BUILDING CONSTRUCTION FOREMAN/PA/Resident note, assessment and plan. I agree with the documentation, assessment and plan unless otherwise stated. <Adán Celestin MD - Last Filed: 08/01/22 11:27> Discharge Plan Discharge Clinical Impression: Alcohol abuse <BETH Vega - Last Filed: 07/28/22 18:19> Patient Disposition: Xfer Other <BETH Vega - Last Filed: 07/28/22 18:19> Transfer Details: [facility] <BETH Vega - Last Filed: 07/28/22 18:19> [facility] <Sparkle Curtis CNP - Last Filed: 07/29/22 09:13> [facility] <Adán Celestin MD - Last Filed: 08/01/22 11:27> Instructions: Abuse of Alcohol (ED) <BETH Vega - Last Filed: 07/28/22 18:19> Additional Instructions: As discussed, once you get to your friend's house and are able to pickle processor your walker, please call back Bette from our care team, as she will arrange for your transportation to [facility] for detox Follow up with your primary care provider. Return to the emergency department immediately if your symptoms worsen or if you develop any dizziness, shortness of breath, difficulty breathing, chest pain, blurry vision, loss of vision, nausea, vomiting, abdominal pain, fever, chills, back pain, or any other complaints. <BETH Vega - Last Filed: 07/28/22 18:19> Prescriptions: No Action (DME) walker Misc See Rx Instructions .Route Qty: 1 0RF Rx Instructions: As directed lidocaine 5 % adhesive patch,medicated 1 patch topical DAILY PRN (Reason: pain) Qty: 15 0RF Rx Instructions: leave on most painful area for up to 12 hrs <BETH Vega - Last Filed: 07/28/22 18:19> Interventions: [place]-Suicide Risk Severity Scale Last Done: 07/29/22 05:00 ED Discharge Assessment Last Done: 07/29/22 09:50 <BETH Vega - Last Filed: 07/28/22 18:19> Discharge Date/Time: 07/29/22 09:50 <BETH Vega - Last Filed: 07/28/22 18:19>
[2022-07-28 15:02] LABS: MANUAL DIFF FLAG NO
[2022-07-28 15:07] LABS: Basophils Percent Auto 0.3 % (0-2); Eosinophils Absolute Auto 0.1 X10*3/uL (0.0-0.4); Eosinophils Percent Auto 1.8 % (0-4); Hematocrit 43.1 % (42.0-52.0); Hemoglobin 14.6 g/dl (14.0-18.0); Imm Gran Abs Auto 0.01 X10*3/uL (0.00-0.03); Imm Gran Pct Auto 0.2 % (0.0-0.4); Lymphocytes Absolute Auto 0.8 X10*3/uL (1.2-4.9); Lymphocytes Percent Auto 13.5 % (20-40); Mean Corpuscular HGB Conc 33.9 g/dl (31.0-36.0); Mean Corpuscular Hemoglobin 29.9 pg (27.0-33.0); Mean Corpuscular Volume 88.3 fL (80.0-98.0); Mean Platelet Volume 10.9 fL (9.4-12.4); Monocytes Absolute Auto 0.8 X10*3/uL (0.1-1.2); Neutrophils Absolute Auto 4.4 x10*3/uL (2.0-8.3); Neutrophils Percent Auto 71.2 % (45-73); Platelet Count 134 X10*3/uL (160-400); Red Blood Count 4.88 X10*6/uL (4.60-5.80); Red Cell Distribution Width 13.1 % (11.0-16.0); White Blood Count 6.2 X10*3/uL (4.8-10.8)
[2022-07-28 15:25] LABS: Acetaminophen LAB < 17 mcg/mL (<30); Alanine Aminotransferase 38 U/L (0-40); Albumin Level 3.9 g/dL (3.5-5.0); Alkaline Phosphatase 64 U/L (39-117); Anion Gap 18 (12-20); Aspartate Amino Transferase 39 U/L (5-37); Bilirubin Total 0.7 mg/dL (0.0-1.0); Blood Urea Nitrogen 32 mg/dL (9-16); Calcium 8.5 mg/dL (8.4-10.2); Carbon Dioxide 20 mmol/L (22-29); Chloride 110 mmol/L (96-108); Creatinine Clr Calc Pharmacy 87.6; Estimated Glomerular Filt Rate > 60; Ethanol 178 mg/dL; Glucose Random 74 mg/dL (60-115); Potassium 3.6 mmol/L (3.3-5.1); Salicylate < 5.0 mg/dL (15-30); Sodium 144 mmol/L (135-145)
--- NOTE | 2022-07-28 19:31 | PC.NURSE ---
assumed care of pt pt resting quietly, no apparent distress will CTM
[2022-07-28 19:42] VITALS: BP 111/72; PULSE 97; RESP 18; TEMP 37.2; O2SAT 96
[2022-07-28 20:45] LABS: Appearance Urine Clear; Color Urine Dark Yellow; Glucose Urine UA Negative (Negative); Leukocyte Esterase Urine Negative (Negative); Nitrite Urine Negative (Negative); PH 5.5 (5.0-9.0); Specific Gravity - Urine 1.025 (1.005-1.025); UMIC TRIGGER UA YES; Urine Blood Negative (Negative); Urine Ketones Trace mg/dL (Negative); Urine Protein 30 (1+) mg/dL (Neg-Trace)
[2022-07-28 20:56] LABS: Bacteria Urine None Seen (None Seen); RBC Urine 0-2 /HPF (0-2); Squamous Epithelial Cell Urine 0-2 /HPF (0-2); WBC Urine 0-5 /HPF (0-5)
[2022-07-28 20:58] LABS: Amphetamine Screen Urine Not Detected (Not Detect); Barbiturates, Urine Not Detected (Not Detect); Benzodiazepines Screen Urine Not Detected (Not Detect); Cannabinoid Screen Urine Not Detected (Not Detect); Cocaine Screen Urine Not Detected (Not Detect); Fentanyl, urine Not Detected (Not Detect); Opiate Screen Urine Not Detected (Not Detect); Phencyclidine Screen Urine Not Detected (Not Detect)
--- NOTE | 2022-07-28 21:34 | MHC.RECOVSUP ---
? Reason for consult:ETOH o? Current location:ED17H? o? Identified substance use concern:? -? Seeking ATS (detox) -? Support ?? Intervention: o? ATS bed search started/completed/in process o? Harm reduction discussion ? Plan: o? Bed search in progress to o? Follow up tomorrow? ? Additional information:RC spoke to several different facilities unsuccessfully. Please follow up with pt tomorrow. 07/29/22
[2022-07-29 02:09] VITALS: BP 106/73; PULSE 83; TEMP 37.1; O2SAT 96
--- NOTE | 2022-07-29 05:01 | PC.NURSE ---
pt sleeping at this time; no apparent distress
[2022-07-29 05:26] VITALS: BP 107/68; PULSE 91; RESP 17; TEMP 36.9; O2SAT 95
[2022-07-29 07:35] VITALS: BP 110/95; PULSE 97; RESP 18; O2SAT 96
--- NOTE | 2022-07-29 09:13 | MHC.RECOVRN ---
Met with pt in 17H to follow up regarding ATS. Pt does not appear to be experiencing any withdrawal. Pt is interested in [facility], however, needs a walker in order to be admitted. Pt had been provided walker from [facility], it is at his friend's house. Spoke with RN and provider, plan for pt to be transported via Lyft to friend's house and obtain walker. Pt will then call t/w to be transported via Lyft to [facility]. Pt agreeable, provided with t/w contact information.
--- NOTE | 2022-07-29 09:23 | PC.NURSE ---
PT SEEN BY MARIAN FROM CARE TEAM AND IS NOW CLEARED FOR DISCHARGE. LYFT PROVIDED BY CARE TEAM. PT AWARE OF PLAN
== END 2022-07-29 09:50 | disposition other institution (70) ==
PROVIDERS: Physician Assistant Medical; Emergency Provider Emergency Medicine
DX: F10.10 Alcohol abuse, uncomplicated (principal); Y90.6 Blood alcohol level of 120-199 mg/100 ml; I10 Essential (primary) hypertension; E78.00 Pure hypercholesterolemia, unspecified
CPT/HCPCS: 36415; 80053; 80143; 80179; 80307; 81001; 82077; 85025; 99284; 99285

== ENCOUNTER 2022-07-29 18:01 | Emergency (ER) | payer MEDICAID, SELFPAY ==
[2022-07-29 18:12] VITALS: BP 119/82; PULSE 100; RESP 20; TEMP 37; O2SAT 99; BMI 25.8
--- NOTE | 2022-07-29 18:39 | ED.PSYCH ---
HPI - Psych General Chief Complaint: ETOH/Substance Use Stated Complaint: seeking detox Time Seen by Provider: 07/29/22 18:33 Source: patient Mode of arrival: EMS Limitations: no limitations History of Present Illness HPI Narrative: Patient alcoholic was seen here earlier been here multiple times was seen here earlier intoxicated comes back as now he wants to go to detox says he is homeless for last few years been drinking for a long time with history of depression been to detox multiple times longest sober was for 6 months , like to go [facility] Related Data Previous Rx's Medication Instructions Recorded walker #1 ea 07/05/21 lidocaine 5 % topical patch 1 patch topical DAILY PRN pain #15 03/03/22 ea Allergies Allergy/AdvReac Type Severity Reaction Status Date / Time clams Allergy Severe HIVES, Verified 03/03/22 16:03 DIFFICULTY BREATHING Review of Systems Review of Systems: Yes all other systems are reviewed and are negative [facility] Past Medical History Medical History ETOH abuse High cholesterol HTN (hypertension) Social History Social History Alcohol intake: current Alcohol intake frequency: 3 or more drinks per day Alcohol type: beer and hard liquor Patient Tobacco Use Status: Never used Tobacco Smoked in Last 30 Days: Yes Use of substances other than those prescribed or required for medical reasons: No Advance Directives: No Advance Directives Information Provided: No service: No Current occupational status: unemployed Physical Exam Vital Signs: Vital Signs: Last Vital Signs Temp 97.4 F 07/29/22 19:51 Pulse 85 07/29/22 19:51 Resp 16 07/29/22 19:51 BP 124/78 07/29/22 19:51 Pulse Ox 98 07/29/22 19:51 O2 Del Method 07/29/22 19:51 BMI result Body Mass Index 25.8 Appearance: Alert. Oriented X3. No acute distress. Clinically sober Eyes: PERRLA, No Nystagmus ENT: Pharynx normal. Oral Mucosa moist Neck: Normal inspection. Neck supple. CVS: Normal heart rate and rhythm. Pulses normal. Respiratory: No respiratory distress. Equal air entry bilateral, no wheezing/rales/rhonchi Abdomen: Soft and nontender. Bowel sounds are present, no mass palpable, no CVA tenderness Skin: Skin warm and dry. Normal skin color. Normal skin turgor. Extremities: No lower extremity edema. No calf tenderness Neuro: Oriented X 3. No motor deficit. No sensory deficit.No cerebellar signs , cranial nerves II-XII intact Medical Decision Making Medical Decision Making MDM Narrative: Will get care team consult for detox placement Discharge Plan Discharge Clinical Impression: Alcohol dependence, Depression Patient Disposition: Still a Patient Prescriptions: No Action (DME) walker Misc See Rx Instructions .Route Qty: 1 0RF Rx Instructions: As directed lidocaine 5 % adhesive patch,medicated 1 patch topical DAILY PRN (Reason: pain) Qty: 15 0RF Rx Instructions: leave on most painful area for up to 12 hrs Interventions: [place]-Suicide Risk Severity Scale Last Done: 07/29/22 18:17
[2022-07-29 19:51] VITALS: BP 124/78; PULSE 85; RESP 16; TEMP 36.3; O2SAT 98
--- NOTE | 2022-07-29 19:51 | MHC.EDTECH ---
patient 1999 rounding ,and vitals sign taken ,pt got change into hospital attire ,pt had grilled cheese sandwich and chips for supper ,and 2 cans of gingerale warm blanket given .
--- NOTE | 2022-07-29 20:34 | MHC.RECOVSUP ---
? Reason for consult:ETOH o? Current location:ED06H? o? Identified substance use concern:? -? Seeking ATS (detox) -? Support ? Intervention: o? ATS bed search started/completed/in process ? Plan: o? Bed search in progress to o? Follow up tomorrow? ? Additional information: reached out to [facility] and [facility] about pt, waiting for an answer on availability.
--- NOTE | 2022-07-29 21:12 | PC.NURSE ---
Pt sleeping at the bedside in no apparent distress. Breaths are even and unlabored with equal chest rises. Will continue to monitor.
--- NOTE | 2022-07-30 00:46 | MHC.EDTECH ---
Pt soiled with urine. Pt given pericare and bed linen changed. Pt changed into hospital gown and hospital pants. Pt given warm blanket/ sandwich and ice water
--- NOTE | 2022-07-30 02:32 | PC.NURSE ---
Pt asleep at the bedside in no apparent distress. Breaths are even and unlabored with equal chest rises. Will continue to monitor.
[2022-07-30 05:21] VITALS: BP 118/73; PULSE 71; RESP 16; TEMP 36.8; O2SAT 98
--- NOTE | 2022-07-30 05:25 | MHC.EDTECH ---
Pt urinal emptied at 800cc
[2022-07-30 06:59] VITALS: BP 137/91; PULSE 69; RESP 17; TEMP 37.1; O2SAT 97
--- NOTE | 2022-07-30 08:03 | MHC.RECOVRN ---
Spoke with [facility] Central Intake, pts referral has been placed. Awaiting call back.
--- NOTE | 2022-07-30 10:38 | PC.NURSE ---
pt awake and alert, sitting in room awaiting acceptance to detox. curriculum coach Bette working on placement. CIWA assessed and a 0. pt denies SI/HI at this time. will continue to monitor
--- NOTE | 2022-07-30 11:12 | MHC.RECOVRN ---
F/u call to [facility] Central Intake. Spoke with Elba who confirmed referral has been received and now we must wait for the facility to reach out to do an intake. Elba informed t/w that there is less staff on the weekend but [facility] will eventually call t/w and/or CARE Team. Also spoke to [facility] who informed t/w that she should only be contacted as a last resort and we must direct all questions/referrals directly to central intake. Awaiting return call from [facility] for pt to complete intake.
[2022-07-30 12:40] VITALS: BP 149/105; PULSE 67; RESP 17; TEMP 37.1; O2SAT 96
--- NOTE | 2022-07-30 12:46 | MHC.RECOVRN ---
[facility] declined pt due to pts acuity medically and physically. [facility] open male beds, pt calling to complete intake at this time.
--- NOTE | 2022-07-30 13:13 | MHC.RECOVRN ---
Pts referral sent to [facility] level 4 ATS.
--- NOTE | 2022-07-30 14:59 | MHC.RECOVRN ---
Spoke with Joselito at [facility], facility will accept pt with a walker, has bed availability, informed t/w to have pt walk in. Spoke with pts RN, pt will be dc and transported via Lyft.
== END 2022-07-30 15:28 | disposition home or self-care (01) ==
PROVIDERS: Emergency Provider Internal Medicine
DX: F10.20 Alcohol dependence, uncomplicated (principal); Y90.9 Presence of alcohol in blood, level not specified; F33.1 Major depressive disorder, recurrent, moderate; Z71.41 Alcohol abuse counseling and surveillance of alcoholic
CPT/HCPCS: 99285

== ENCOUNTER 2022-08-06 13:30 | Emergency (ER) | payer MEDICAID, SELFPAY ==
[2022-08-06 13:54] VITALS: BP 118/88; PULSE 90; BMI 28.2
[2022-08-06 14:00] VITALS: BP 107/61; PULSE 100; RESP 16; TEMP 36.4; O2SAT 95
[2022-08-06 14:37] LABS: MANUAL DIFF FLAG NO
[2022-08-06 14:45] LABS: Basophils Percent Auto 0.2 % (0-2); Eosinophils Absolute Auto 0.2 X10*3/uL (0.0-0.4); Eosinophils Percent Auto 2.7 % (0-4); Hematocrit 42.9 % (42.0-52.0); Hemoglobin 14.6 g/dl (14.0-18.0); Imm Gran Abs Auto 0.01 X10*3/uL (0.00-0.03); Imm Gran Pct Auto 0.2 % (0.0-0.4); Lymphocytes Absolute Auto 0.8 X10*3/uL (1.2-4.9); Lymphocytes Percent Auto 13.1 % (20-40); Mean Corpuscular Hemoglobin 30.1 pg (27.0-33.0); Mean Corpuscular Volume 88.5 fL (80.0-98.0); Mean Platelet Volume 11.1 fL (9.4-12.4); Monocytes Absolute Auto 0.9 X10*3/uL (0.1-1.2); Monocytes Percent Auto 14.1 % (2-11); Neutrophils Absolute Auto 4.2 x10*3/uL (2.0-8.3); Neutrophils Percent Auto 69.7 % (45-73); Platelet Count 134 X10*3/uL (160-400); Red Blood Count 4.85 X10*6/uL (4.60-5.80); Red Cell Distribution Width 13.2 % (11.0-16.0)
[2022-08-06 14:49] LABS: Amphetamine Screen Urine Not Detected (Not Detect); Barbiturates, Urine Not Detected (Not Detect); Benzodiazepines Screen Urine Not Detected (Not Detect); Cannabinoid Screen Urine Not Detected (Not Detect); Cocaine Screen Urine Not Detected (Not Detect); Fentanyl, urine Not Detected (Not Detect); Opiate Screen Urine Not Detected (Not Detect); Phencyclidine Screen Urine Not Detected (Not Detect)
[2022-08-06 14:52] LABS: COVID-19 Test Negative (Negative); IDNOW Serial# 16C4AD1C
[2022-08-06 15:05] LABS: Alanine Aminotransferase 39 U/L (0-40); Albumin Level 4.1 g/dL (3.5-5.0); Alkaline Phosphatase 63 U/L (39-117); Anion Gap 17 (12-20); Aspartate Amino Transferase 36 U/L (5-37); Bilirubin Total 0.6 mg/dL (0.0-1.0); Blood Urea Nitrogen 18 mg/dL (9-16); Calcium 8.6 mg/dL (8.4-10.2); Carbon Dioxide 17 mmol/L (22-29); Chloride 108 mmol/L (96-108); Creatinine Clr Calc Pharmacy 115.6; Estimated Glomerular Filt Rate > 60; Ethanol 182 mg/dL; Glucose Random 80 mg/dL (60-115); Sodium 138 mmol/L (135-145); Total Protein 7.5 g/dL (6.5-8.0)
--- NOTE | 2022-08-06 17:22 | ED_ITS ---
HPI - Alcohol General Chief Complaint: ETOH/Substance Use Stated Complaint: ETOH,SEEKING DETOX Time Seen by Provider: 08/06/22 13:58 Source: patient Mode of arrival: EMS History of Present Illness HPI narrative: 52-year-old male brought in by the ambulance states that he is seeking detox but was just discharged yesterday and then drink more alcohol (3 beers and a pt of liquor), denies any SI or HI symptoms and is specifically requesting [facility]. Related Data Previous Rx's Medication Instructions Recorded walker #1 ea 07/05/21 lidocaine 5 % topical patch 1 patch topical DAILY PRN pain #15 03/03/22 ea Allergies Allergy/AdvReac Type Severity Reaction Status Date / Time clams Allergy Severe HIVES, Verified 03/03/22 16:03 DIFFICULTY BREATHING Review of Systems Review of Systems: Pertinent positives and negatives as stated in HPI PMFSH Past Medical History Source: nursing notes reviewed Medical History ETOH abuse High cholesterol HTN (hypertension) Social History Social History Alcohol intake: current Alcohol intake frequency: 3 or more drinks per day Alcohol type: beer and hard liquor Patient Tobacco Use Status: Never used Tobacco Advance Directives: No Advance Directives Information Provided: Yes service: No Current occupational status: unemployed Physical Exam ED Vital Signs: Vital Signs - 24 hr 08/06/22 14:00 Temperature 97.6 F Pulse Rate 100 Respiratory Rate 16 Blood Pressure 107/61 Pulse Oximetry 95 Oxygen Delivery Method Room Air BMI result Body Mass Index 28.2 VITAL SIGNS: Reviewed. GENERAL: Well developed, well nourished, in no acute distress. HEAD: Normocephalic/atraumatic EYES: PERRLA, EOMI EARS: Ext canals without abnormality OROPHARYNX: no oral lesions noted, posterior pharynx clear LUNGS: Normal breath sounds. No adventitious sounds or accessory muscle use. SpO2<95> CARDIOVASCULAR: Regular rate and rhythm without noted murmurs ABDOMEN: Soft, non-tender, non-distended with bowel sounds. NEUROLOGIC: Alert and oriented x 4. Medical Decision Making Medical Decision Making MDM Narrative: 52-year-old male who is requesting detox, he has never had withdrawal symptoms such as seizures, he just recently completed a detox center, he was informed that it may not be possible to get him in to the specific unit he is requesting. BAL-182. He is medically cleared for placement. Differential Diagnosis Differential Diagnoses: The differential diagnosis associated with the presentation includes Please see the discussion above Lab Data MDM Lab Attestation statement: I reviewed the patient's lab results. Please see the discussion above 08/06/22 14:34 08/06/22 14:34 Labs: Lab Results 08/06/22 08/06/22 08/06/22 Range/Units 14:34 14:34 14:34 WBC 6.0 (4.8-10.8) X10*3/uL RBC 4.85 (4.60-5.80) X10*6/uL Hgb 14.6 (14.0-18.0) g/dl Hct 42.9 (42.0-52.0) % MCV 88.5 (80.0-98.0) fL MCH 30.1 (27.0-33.0) pg MCHC 34.0 (31.0-36.0) g/dl RDW 13.2 (11.0-16.0) % Plt Count 134 L (160-400) X10*3/uL MPV 11.1 (9.4-12.4) fL Immature Gran % (Auto) 0.2 (0.0-0.4) % Neut % (Auto) 69.7 (45-73) % Lymph % (Auto) 13.1 L (20-40) % [place]arro % (Auto) 14.1 H (2-11) % Eos % (Auto) 2.7 (0-4) % Baso % (Auto) 0.2 (0-2) % Lymph # (Auto) 0.8 L (1.2-4.9) X10*3/uL [place] # (Auto) 0.9 (0.1-1.2) X10*3/uL Eos # (Auto) 0.2 (0.0-0.4) X10*3/uL Baso # (Auto) 0.0 (0.0-0.2) X10*3/uL Abs Immat Gran (auto) 0.01 (0.00-0.03) X10*3/uL Absolute Neuts (auto) 4.2 (2.0-8.3) x10*3/uL Absolute Nucleated RBC 0.000 (0.0-0.012) X10*3/uL Nucleated RBC % (auto) 0.0 (0.0-0.2) /100WBC Sodium 138 (135-145) mmol/L Potassium 4.0 (3.3-5.1) mmol/L Chloride 108 (96-108) mmol/L Carbon Dioxide 17 L (22-29) mmol/L Anion Gap 17 (12-20) BUN 18 H (9-16) mg/dL Creatinine 0.74 (0.5-1.4) mg/dL Estim Creat Clear Calc 115.6 Estimated GFR > 60 Random Glucose 80 (60-115) mg/dL Calcium 8.6 (8.4-10.2) mg/dL Total Bilirubin 0.6 (0.0-1.0) mg/dL AST 36 (5-37) U/L ALT 39 (0-40) U/L Alkaline Phosphatase 63 (39-117) U/L Total Protein 7.5 (6.5-8.0) g/dL Albumin 4.1 (3.5-5.0) g/dL Urine Opiates Screen (Not Detect) Urine Fentanyl Screen (Not Detect) Ur Barbiturates Screen (Not Detect) Ur Phencyclidine Scrn (Not Detect) Ur Amphetamines Screen (Not Detect) U Benzodiazepines Scrn (Not Detect) Urine Cocaine Screen (Not Detect) U Marijuana (THC) Screen (Not Detect) Ethyl Alcohol 182 mg/dL COVID-19 (TYE) Negative (Negative) COVID-19 Clin Com See Note 08/06/22 Range/Units 14:34 WBC (4.8-10.8) X10*3/uL RBC (4.60-5.80) X10*6/uL Hgb (14.0-18.0) g/dl Hct (42.0-52.0) % MCV (80.0-98.0) fL MCH (27.0-33.0) pg MCHC (31.0-36.0) g/dl RDW (11.0-16.0) % Plt Count (160-400) X10*3/uL MPV (9.4-12.4) fL Immature Gran % (Auto) (0.0-0.4) % Neut % (Auto) (45-73) % Lymph % (Auto) (20-40) % [place]arro % (Auto) (2-11) % Eos % (Auto) (0-4) % Baso % (Auto) (0-2) % Lymph # (Auto) (1.2-4.9) X10*3/uL [place] # (Auto) (0.1-1.2) X10*3/uL Eos # (Auto) (0.0-0.4) X10*3/uL Baso # (Auto) (0.0-0.2) X10*3/uL Abs Immat Gran (auto) (0.00-0.03) X10*3/uL Absolute Neuts (auto) (2.0-8.3) x10*3/uL Absolute Nucleated RBC (0.0-0.012) X10*3/uL Nucleated RBC % (auto) (0.0-0.2) /100WBC Sodium (135-145) mmol/L Potassium (3.3-5.1) mmol/L Chloride (96-108) mmol/L Carbon Dioxide (22-29) mmol/L Anion Gap (12-20) BUN (9-16) mg/dL Creatinine (0.5-1.4) mg/dL Estim Creat Clear Calc Estimated GFR Random Glucose (60-115) mg/dL Calcium (8.4-10.2) mg/dL Total Bilirubin (0.0-1.0) mg/dL AST (5-37) U/L ALT (0-40) U/L Alkaline Phosphatase (39-117) U/L Total Protein (6.5-8.0) g/dL Albumin (3.5-5.0) g/dL Urine Opiates Screen Not Detected (Not Detect) Urine Fentanyl Screen Not Detected (Not Detect) Ur Barbiturates Screen Not Detected (Not Detect) Ur Phencyclidine Scrn Not Detected (Not Detect) Ur Amphetamines Screen Not Detected (Not Detect) U Benzodiazepines Scrn Not Detected (Not Detect) Urine Cocaine Screen Not Detected (Not Detect) U Marijuana (THC) Screen Not Detected (Not Detect) Ethyl Alcohol mg/dL COVID-19 (TYE) (Negative) COVID-19 Clin Com External Record Review External record reviewed: Outpatient record and Prior outpatient labs Discharge Plan Discharge Clinical Impression: Alcoholic intoxication, Alcohol use disorder Patient Disposition: Still a Patient Prescriptions: No Action (NANCY) nathaniel Arriaga See Rx Instructions .Route Qty: 1 0RF Rx Instructions: As directed lidocaine 5 % adhesive patch,medicated 1 patch topical DAILY PRN (Reason: pain) Qty: 15 0RF Rx Instructions: leave on most painful area for up to 12 hrs Interventions: [place]-Suicide Risk Severity Scale Last Done: 08/06/22 13:59
--- NOTE | 2022-08-06 17:24 | MHC.EDTECH ---
pt was incontinent of loose stool ,care given ,bedding change .
--- NOTE | 2022-08-06 18:14 | MHC.RECOVSUP ---
? Reason for consult: Recovery Support o Current location: ED22H? o Identified substance use concern: AUD? - Withdrawal - Seeking ATS (detox) - Support ? ?Intervention: o ATS bed search started/completed/in process o Community resources provided o Harm reduction discussion ? Plan: o Bed search in progress to ? Additional information: Patient consultation with Em from the Recovery Team before connecting with patient. I was able to connect with patient and he stated he would like detox at this time. I was able to call [facility] and they advised me that he needs a level 4 care and cannot accept him. [facility] do not have any openings for patient at this time, possibly in the morning at 7am. Patient is sleeping at this time
[2022-08-07 00:51] VITALS: BP 141/96; PULSE 90; RESP 18; TEMP 36.4; O2SAT 98
[2022-08-07 05:27] VITALS: BP 131/86; PULSE 94; RESP 16; TEMP 37; O2SAT 98
--- NOTE | 2022-08-07 07:35 | PC.NURSE ---
Patient resting comfortably no distress noted no agitation or anxiety behavior appropriate diet order placed for patient awaiting asset recovery specialist for detox placement will LINDAM
--- NOTE | 2022-08-07 08:49 | MHC.RECOVRN ---
This fiction and nonfiction prose writer met w/ patient, patient requesting detox. Patient alert, oriented, comfortable, laying in bed. Patient states was at [facility] for a few days, left yesterday and drank ETOH SHOE CASER. Patient reports was at [facility] in [place] before that. Patient states intermittently staying with a friend in [place]. Patient requesting [facility] detox. Patient preference is to stay in the area. Patient reports no s/s of withdrawal at this time. ATS referral sent to [facility], pending review by nursing team at [facility].
--- NOTE | 2022-08-07 09:40 | MHC.RECOVRN ---
This commercial loan underwriter spoke with detox coordinator at [facility], patient is denied admission at this time, due to being d/c from [facility] yesterday 08/06/22, referral sent to [facility], patient can follow up from the community. T/W and patient discussed that at this time [facility] has declined admission and [facility] has no beds. Patient states does not want to go to facilities outside of area. ATS bedsearch exhausted. Patient plan of care discussed, patient states will go to [facility] to stay, t/w to coordinate Lyft transport. Patient to f/u w/ [facility] r/t [facility] referral, patient agreeable to plan. Provider aware.
== END 2022-08-07 10:03 | disposition home or self-care (01) ==
PROVIDERS: Emergency Provider Student in an Organized Health Care Education/Training Program
DX: F10.220 Alcohol dependence with intoxication, uncomplicated (principal); Y90.6 Blood alcohol level of 120-199 mg/100 ml; Z20.822 Contact with and (suspected) exposure to COVID-19; I10 Essential (primary) hypertension; E78.5 Hyperlipidemia, unspecified; Z79.899 Other long term (current) drug therapy
CPT/HCPCS: 80053; 80307; 82077; 85025; 87635; 99284

== ENCOUNTER 2022-08-08 19:34 | Emergency (ER) | payer MEDICAID, SELFPAY ==
--- NOTE | ~2022-08-08 | XR_ITS ---
EXAMINATION: XR KNEE, RIGHT CLINICAL INFORMATION: Right knee pain status post fall COMPARISON: 06/09/2021 TECHNIQUE: Four views of the right knee. FINDINGS: There is no fracture or subluxation. Compartmental joint spaces are maintained. Small marginal osteophytes at the patellofemoral compartment and medial compartment. No joint effusion. Anterior soft tissue swelling overlies the patellar tendon. XR/XR knee RT 4V IMPRESSION: Anterior soft tissue swelling overlying the patellar tendon. No fracture or malalignment. Mild degenerative changes.
--- NOTE | ~2022-08-08 | CT_ITS ---
EXAMINATION: CT HEAD WITHOUT CONTRAST CT CERVICAL SPINE WITHOUT CONTRAST CLINICAL INFORMATION: Ethanol abuse COMPARISON: 07/14/2022 TECHNIQUE: CT of the head and cervical spine were performed without intravenous contrast. Multiplanar reformats were rendered and reviewed. This CT examination was performed using dose optimization techniques as appropriate, variously including the following: *Automated exposure control *Adjustment of mA and/or kV according to patient size (this includes techniques or standardized protocols for targeted exams where dose is matched to indication/reason for exam; i.e. extremities or head) *Use of iterative reconstruction technique DLP: 1247 mGy-cm. FINDINGS: CT head: No intracranial hemorrhage, large infarction, or mass lesion is seen. No extra-axial collection is appreciated. The ventricles are normal in size and configuration without evidence of hydrocephalus. There is prominent cisterna magna normal variant unchanged since previous studies There is mucosal thickening and fluid seen in both maxillary sinuses with deviation of the nasal septum to the left. No molly bullosa seen bilaterally. Mastoids are well-aerated. CT cervical spine: The cervical alignment is normal. The craniocervical junction is normal. The vertebral body heights are maintained. No cervical spine fracture is seen. Soft tissues unremarkable. The paraspinal soft tissues are within normal limits. The partially imaged lung apices are clear. CT/CT cervical spine wo IV con IMPRESSION: CT head: No acute intracranial finding. CT cervical spine: No cervical spine fracture or traumatic malalignment identified.
--- NOTE | ~2022-08-08 | CT_ITS ---
EXAMINATION: CT HEAD WITHOUT CONTRAST CT CERVICAL SPINE WITHOUT CONTRAST CLINICAL INFORMATION: Ethanol abuse COMPARISON: 07/14/2022 TECHNIQUE: CT of the head and cervical spine were performed without intravenous contrast. Multiplanar reformats were rendered and reviewed. This CT examination was performed using dose optimization techniques as appropriate, variously including the following: *Automated exposure control *Adjustment of mA and/or kV according to patient size (this includes techniques or standardized protocols for targeted exams where dose is matched to indication/reason for exam; i.e. extremities or head) *Use of iterative reconstruction technique DLP: 1247 mGy-cm. FINDINGS: CT head: No intracranial hemorrhage, large infarction, or mass lesion is seen. No extra-axial collection is appreciated. The ventricles are normal in size and configuration without evidence of hydrocephalus. There is prominent cisterna magna normal variant unchanged since previous studies There is mucosal thickening and fluid seen in both maxillary sinuses with deviation of the nasal septum to the left. No molly bullosa seen bilaterally. Mastoids are well-aerated. CT cervical spine: The cervical alignment is normal. The craniocervical junction is normal. The vertebral body heights are maintained. No cervical spine fracture is seen. Soft tissues unremarkable. The paraspinal soft tissues are within normal limits. The partially imaged lung apices are clear. CT/CT head/brain wo IV con IMPRESSION: CT head: No acute intracranial finding. CT cervical spine: No cervical spine fracture or traumatic malalignment identified.
--- NOTE | ~2022-08-08 | XR_ITS ---
EXAMINATION: XR CHEST CLINICAL INFORMATION: Fall. Chest trauma. COMPARISON: 07/14/2022 TECHNIQUE: Frontal view of the chest was obtained. FINDINGS: Lung volumes are low. Diffuse bilateral patchy opacities, greatest in the retrocardiac region. Possible small left pleural effusion. No pneumothorax. The cardiomediastinal silhouette is within normal limits. No acute osseous abnormality. XR/XR chest 1V IMPRESSION: Diffuse bilateral patchy opacities, greatest in the retrocardiac region. This could be infectious or inflammatory. Possible small left pleural effusion. No displaced fractures are seen.
[2022-08-08 19:44] VITALS: BP 116/78; PULSE 98; O2SAT 95
[2022-08-08 19:50] VITALS: BP 126/89; PULSE 91; RESP 22; TEMP 36.7; O2SAT 95; BMI 25.8
--- NOTE | 2022-08-08 20:53 | ED_ITS ---
HPI - Alcohol General Chief Complaint: ETOH/Substance Use Stated Complaint: etoh fall Time Seen by Provider: 08/08/22 19:47 Source: patient and EMS Mode of arrival: EMS Limitations: other (intoxicated poor historian ) History of Present Illness HPI narrative: ?52-year-old male history of alcohol abuse, hypertension, hyperlipidemia brought in by ambulance for alcohol intoxication, unwhitnessed fall with?unknown he adstrike patient reports he drinks 1 pt of vodka prior to arrival as well as a few beers last drink was approximately 1 hour ago. Complaining of right knee pain and requesting that he speak to somebody for detox. Patient is currently homeless. Patient not on blood thinners. Denies chest pain, shortness of breath, nausea, vomiting, abdominal pain, headache, vision changes, dizziness or weakness. Patient following commands speaking in full sentences with an NIH Stroke Scale of 0. GCS of 15 Related Data Previous Rx's Medication Instructions Recorded walker #1 ea 07/05/21 lidocaine 5 % topical patch 1 patch topical DAILY PRN pain #15 03/03/22 ea Allergies Allergy/AdvReac Type Severity Reaction Status Date / Time clams Allergy Severe HIVES, Verified 03/03/22 16:03 DIFFICULTY BREATHING Review of Systems Review of Systems: Constitutional : No Weight loss, No Fever, No Chills, No Fatigue, No Malaise ENT/Mouth : No sore throat, No Rhinorrhea Eyes: No Eye Pain, No Swelling, No Redness Cardiovascular : No Chest Pain, No SOB, No Dyspnea on Exertion, No Orthopnea, No Edema, No Palpitations Respiratory : No Cough, No Sputum, No Wheezing Gastrointestinal : No Nausea, No Vomiting, No Diarrhea, No Constipation, No abdominal Pain, No Hematochezia, No Melena Genitourinary : No Dysuria, No Urinary Frequency, No Hematuria, Musculoskeletal : + joint pain, No Myalgias, No Joint Swelling Skin : No Skin Lesions, No rash Neuro : No Weakness, No Numbness, No Dizziness, No Headache Psych : No Anxiety/Panic, No Depression, No SI or HI All other systems reviewed and are negative Yes all other systems are reviewed and are negative [facility] Past Medical History Attestation statement: The following information was validated with the patient. Source: old records reviewed and nursing notes reviewed Medical History ETOH abuse High cholesterol HTN (hypertension) Social History Social History Alcohol intake: current Alcohol intake frequency: 3 or more drinks per day Alcohol type: beer and hard liquor Patient Tobacco Use Status: Never used Tobacco Advance Directives: No Advance Directives Information Provided: No service: No Current occupational status: unemployed Physical Exam ED Vital Signs: Vital Signs - 24 hr 08/08/22 19:50 08/08/22 21:15 08/08/22 22:48 Temperature 98.0 F 98 F 98.3 F Pulse Rate 91 95 91 Respiratory Rate 22 H 18 16 Blood Pressure 126/89 124/84 129/84 Pulse Oximetry 95 99 96 Oxygen Delivery Method Room Air Room Air Room Air BMI result Body Mass Index 25.8 vss Appearance: Alert.? Oriented X3.? No acute distress.? Head: Normocephalic, atraumatic, no step-offs or deformities Eyes: Pupils equal, round and reactive to light.? Neck: Normal inspection.? Neck supple.? CVS: Normal heart rate and rhythm.? Pulses normal.? Respiratory: No respiratory distress.? Breath sounds normal.? Abdomen: Soft and nontender.? Skin: Skin warm and dry.? Normal skin color.? Normal skin turgor.? Extremities: No lower extremity edema.? No calf ttp. 5/5 strength to bilateral upper and lower extremities Back: No midline tenderness, no C-spine tenderness, full range of motion, no CVA tenderness bilaterally Neuro: Oriented X 3.? No motor deficit.? No sensory deficit. CN 2-12 intact. Ambulating w/ steady gait with normal coordination Course Reevaluation(s) Reevaluation #1: CBC appears to be within patient's baseline. Chemistry with no acute electrolyte abnormalities requiring acute intervention. Transaminases slightly elevated likely secondary to alcohol abuse. Urine toxicology negative for drugs. Ethanol 173 consistent with acute alcohol intoxication. COVID and influenza negative. CT of head with no acute intracranial findings. CT of the cervical spine no acute and fractures or dislocations. Patient has been seen here for this multiple times. He is seeking detox. Patient comfortably resting with stable vital signs at this time. At this time patient will be placed into observation to allow more time to be evaluated by the behavioral health team/substance abuse counselors. Time: 00:20 Reevaluation #2: To know x-ray of right knee with anterior soft tissue swelling overlying the patellar tendon. No fracture malalignment. Mild degenerative changes. Patient will be placed in an Henry wrap when he wakes up. Time: 00:22 Medical Decision Making Medical Decision Making [facility] Narrative: 2017 52-year-old male presents with acute alcohol intoxication status post unwitnessed fall, tells me he is unsure if he lost consciousness not on blood thinners. Complaining of right knee pain. Physical examination benign. Concerns for possible intracranial hemorrhage due to head strike on EtOH. Will rule out polysubstance abuse, electrolyte abnormalities, UTI, chest trauma. Plan at this time labs, urine, CT of head and brain, and cervical spine as well as x-ray of chest, right knee. Differential Diagnosis Differential Diagnoses: The differential diagnosis associated with the presentation includes Concerns for possible intracranial hemorrhage due to head strike on EtOH. Will rule out polysubstance abuse, electrolyte abnormalities, UTI, chest trauma. Admission/Observation Consideration of admission/observation: Escalation of care including admission/observation considered Lab Data [facility] Lab Attestation statement: I reviewed the patient's lab results. 08/08/22 21:26 08/08/22 21:26 Labs: Lab Results 08/08/22 08/08/22 08/08/22 Range/Units 21:26 21:26 21:26 WBC 5.4 (4.8-10.8) X10*3/uL RBC 4.63 (4.60-5.80) X10*6/uL Hgb 13.9 L (14.0-18.0) g/dl Hct 41.3 L (42.0-52.0) % MCV 89.2 (80.0-98.0) fL MCH 30.0 (27.0-33.0) pg MCHC 33.7 (31.0-36.0) g/dl RDW 13.5 (11.0-16.0) % Plt Count 124 L (160-400) X10*3/uL MPV 10.8 (9.4-12.4) fL Immature Gran % (Auto) 0.2 (0.0-0.4) % Neut % (Auto) 68.5 (45-73) % Lymph % (Auto) 13.2 L (20-40) % [place] % (Auto) 14.5 H (2-11) % Eos % (Auto) 3.2 (0-4) % Baso % (Auto) 0.4 (0-2) % Lymph # (Auto) 0.7 L (1.2-4.9) X10*3/uL [place] # (Auto) 0.8 (0.1-1.2) X10*3/uL Eos # (Auto) 0.2 (0.0-0.4) X10*3/uL Baso # (Auto) 0.0 (0.0-0.2) X10*3/uL Abs Immat Gran (auto) 0.01 (0.00-0.03) X10*3/uL Absolute Neuts (auto) 3.7 (2.0-8.3) x10*3/uL Absolute Nucleated RBC 0.000 (0.0-0.012) X10*3/uL Nucleated RBC % (auto) 0.0 (0.0-0.2) /100WBC Sodium 144 (135-145) mmol/L Potassium 3.6 (3.3-5.1) mmol/L Chloride 111 H (96-108) mmol/L Carbon Dioxide 26 (22-29) mmol/L Anion Gap 11 L (12-20) BUN 18 H (9-16) mg/dL Creatinine 0.82 (0.5-1.4) mg/dL Estim Creat Clear Calc 95.0 Estimated GFR > 60 Random Glucose 125 H (60-115) mg/dL Calcium 8.3 L (8.4-10.2) mg/dL Magnesium 2.1 (1.6-2.6) mg/dL Total Bilirubin 0.5 (0.0-1.0) mg/dL AST 42 H (5-37) U/L ALT 47 H (0-40) U/L Alkaline Phosphatase 60 (39-117) U/L Total Protein 7.0 (6.5-8.0) g/dL Albumin 3.9 (3.5-5.0) g/dL Urine Opiates Screen Not Detected (Not Detect) Urine Fentanyl Screen Not Detected (Not Detect) Ur Barbiturates Screen Not Detected (Not Detect) Ur Phencyclidine Scrn Not Detected (Not Detect) Ur Amphetamines Screen Not Detected (Not Detect) U Benzodiazepines Scrn Not Detected (Not Detect) Urine Cocaine Screen Not Detected (Not Detect) U Marijuana (THC) Screen Not Detected (Not Detect) Ethyl Alcohol 173 mg/dL COVID-19 (TYE) (Negative) COVID-19 Clin Com Influenza Type A (CAROL ANN) (Negative) Influenza Type B (CAROL ANN) (Negative) Influenza A & B Note 08/08/22 08/08/22 Range/Units 22:39 22:39 WBC (4.8-10.8) X10*3/uL RBC (4.60-5.80) X10*6/uL Hgb (14.0-18.0) g/dl Hct (42.0-52.0) % MCV (80.0-98.0) fL MCH (27.0-33.0) pg MCHC (31.0-36.0) g/dl RDW (11.0-16.0) % Plt Count (160-400) X10*3/uL MPV (9.4-12.4) fL Immature Gran % (Auto) (0.0-0.4) % Neut % (Auto) (45-73) % Lymph % (Auto) (20-40) % [place] % (Auto) (2-11) % Eos % (Auto) (0-4) % Baso % (Auto) (0-2) % Lymph # (Auto) (1.2-4.9) X10*3/uL [place] # (Auto) (0.1-1.2) X10*3/uL Eos # (Auto) (0.0-0.4) X10*3/uL Baso # (Auto) (0.0-0.2) X10*3/uL Abs Immat Gran (auto) (0.00-0.03) X10*3/uL Absolute Neuts (auto) (2.0-8.3) x10*3/uL Absolute Nucleated RBC (0.0-0.012) X10*3/uL Nucleated RBC % (auto) (0.0-0.2) /100WBC Sodium (135-145) mmol/L Potassium (3.3-5.1) mmol/L Chloride (96-108) mmol/L Carbon Dioxide (22-29) mmol/L Anion Gap (12-20) BUN (9-16) mg/dL Creatinine (0.5-1.4) mg/dL Estim Creat Clear Calc Estimated GFR Random Glucose (60-115) mg/dL Calcium (8.4-10.2) mg/dL Magnesium (1.6-2.6) mg/dL Total Bilirubin (0.0-1.0) mg/dL AST (5-37) U/L ALT (0-40) U/L Alkaline Phosphatase (39-117) U/L Total Protein (6.5-8.0) g/dL Albumin (3.5-5.0) g/dL Urine Opiates Screen (Not Detect) Urine Fentanyl Screen (Not Detect) Ur Barbiturates Screen (Not Detect) Ur Phencyclidine Scrn (Not Detect) Ur Amphetamines Screen (Not Detect) U Benzodiazepines Scrn (Not Detect) Urine Cocaine Screen (Not Detect) U Marijuana (THC) Screen (Not Detect) Ethyl Alcohol mg/dL COVID-19 (TYE) Negative (Negative) COVID-19 Clin Com See Note Influenza Type A (CAROL ANN) Negative (Negative) Influenza Type B (CAROL ANN) Negative (Negative) Influenza A & B Note See Note Radiology Impression Discussion of test interpretation with radiology: I have reviewed the radiologist's reading. Social Determinants Patient?s care significantly limited by Social Determinants of Health including: Alcoholism and drug addiction in family Core Measures AMI core measures followed: Yes Measure exclusions: not indicated Critical Care Time Critical Care Time Critical Care Time: No Discharge Plan Discharge Clinical Impression: Alcoholic intoxication Patient Disposition: Still a Patient Prescriptions: No Action (DME) nathaniel Owusuc See Rx Instructions .Route Qty: 1 0RF Rx Instructions: As directed lidocaine 5 % adhesive patch,medicated 1 patch topical DAILY PRN (Reason: pain) Qty: 15 0RF Rx Instructions: leave on most painful area for up to 12 hrs
[2022-08-08 21:15] VITALS: BP 124/84; PULSE 95; RESP 18; TEMP 36.6; O2SAT 99
[2022-08-08 21:31] LABS: MANUAL DIFF FLAG NO
[2022-08-08 21:44] LABS: Amphetamine Screen Urine Not Detected (Not Detect); Barbiturates, Urine Not Detected (Not Detect); Benzodiazepines Screen Urine Not Detected (Not Detect); Cannabinoid Screen Urine Not Detected (Not Detect); Cocaine Screen Urine Not Detected (Not Detect); Fentanyl, urine Not Detected (Not Detect); Opiate Screen Urine Not Detected (Not Detect); Phencyclidine Screen Urine Not Detected (Not Detect)
[2022-08-08 21:47] LABS: Alanine Aminotransferase 47 U/L (0-40); Albumin Level 3.9 g/dL (3.5-5.0); Alkaline Phosphatase 60 U/L (39-117); Anion Gap 11 (12-20); Aspartate Amino Transferase 42 U/L (5-37); Bilirubin Total 0.5 mg/dL (0.0-1.0); Blood Urea Nitrogen 18 mg/dL (9-16); Calcium 8.3 mg/dL (8.4-10.2); Carbon Dioxide 26 mmol/L (22-29); Chloride 111 mmol/L (96-108); Estimated Glomerular Filt Rate > 60; Ethanol 173 mg/dL; Glucose Random 125 mg/dL (60-115); Magnesium 2.1 mg/dL (1.6-2.6); Potassium 3.6 mmol/L (3.3-5.1); Sodium 144 mmol/L (135-145)
[2022-08-08 21:51] LABS: Basophils Percent Auto 0.4 % (0-2); Eosinophils Absolute Auto 0.2 X10*3/uL (0.0-0.4); Eosinophils Percent Auto 3.2 % (0-4); Hematocrit 41.3 % (42.0-52.0); Hemoglobin 13.9 g/dl (14.0-18.0); Imm Gran Abs Auto 0.01 X10*3/uL (0.00-0.03); Imm Gran Pct Auto 0.2 % (0.0-0.4); Lymphocytes Absolute Auto 0.7 X10*3/uL (1.2-4.9); Lymphocytes Percent Auto 13.2 % (20-40); Mean Corpuscular HGB Conc 33.7 g/dl (31.0-36.0); Mean Corpuscular Volume 89.2 fL (80.0-98.0); Mean Platelet Volume 10.8 fL (9.4-12.4); Monocytes Absolute Auto 0.8 X10*3/uL (0.1-1.2); Monocytes Percent Auto 14.5 % (2-11); Neutrophils Absolute Auto 3.7 x10*3/uL (2.0-8.3); Neutrophils Percent Auto 68.5 % (45-73); Platelet Count 124 X10*3/uL (160-400); Red Blood Count 4.63 X10*6/uL (4.60-5.80); Red Cell Distribution Width 13.5 % (11.0-16.0); White Blood Count 5.4 X10*3/uL (4.8-10.8)
[2022-08-08 22:48] VITALS: BP 129/84; PULSE 91; RESP 16; TEMP 36.8; O2SAT 96
[2022-08-08 23:16] LABS: Influenza A Negative (Negative); Influenza B2 Negative (Negative)
[2022-08-08 23:17] LABS: COVID-19 Test Negative (Negative); IDNOW Serial# 08D9AD1C
[2022-08-09 00:33] VITALS: BP 111/81; PULSE 100; RESP 17; TEMP 36.6; O2SAT 94
--- NOTE | 2022-08-09 00:34 | MHC.EDTECH ---
PT 1X assisted into changing into a hospital gown and lurdes care. PT bed linen changed. Pt given warm blankets and call souza placed in reach
--- NOTE | 2022-08-09 00:51 | PC.NURSE ---
pt pinedo X4 denies pain CiWA score 0.
[2022-08-09 04:35] VITALS: BP 123/79; PULSE 101; RESP 17; TEMP 36.7; O2SAT 96
[2022-08-09 07:29] VITALS: BP 135/98; PULSE 86; RESP 16; TEMP 36.6; O2SAT 95
--- NOTE | 2022-08-09 09:01 | PC.NURSE ---
assistant women's soccer coach at bedside
[2022-08-09] MEDS: Thiamine HCL 100 MG TABLET PO (09:05)
[2022-08-09] MEDS: Amoxicillin/Potassium Clav 875 MG TABLET PO (09:05)
--- NOTE | 2022-08-09 09:24 | MHC.RECOVRN ---
Met with pt in ED9 to discuss substance use and desire for treatment. Pt laying in bed, awake, alert, easily engages in conversation. Does not appear to be in withdrawal. Pt does not have his walker with him, which is a great barrier to placement. Pt reports it is at his friends house and the friend is unable to bring it to [facility]. Pt reports alcohol use, last use yesterday 1 pint vodka and 4 beers. Pt had been administratively discharged last week from [facility] after hugging another patient, per pt report. Pt presented to [facility] ED on 08/07 and was unsuccessful with securing an ATS bed. At that time, pt did not meet criteria for ATS and was provided information on [facility] level of care and encouraged to follow up from home. Pt reports the phone numbers provided are in his jacket pocket and states I just didn't call. Pt is interested in ATS at this time. Declines [facility]. [facility] does not have bed availability. [facility] will review pt, however, they have recently reported he likely will need a higher level of care and will be unable to accept him without a walker, regardless. T/w will check bed availability at level 4 facilities.
--- NOTE | 2022-08-09 10:47 | MHC.EDTECH ---
@10:31AM MARISA/JESSICA TEXTED [facility]IGER NOT RUNNING YET FOR THEM ASKING FOR CHAIR VAN TRANSPORT FOR THIS PT BACK HOME AFTER SOME DELIBERATION WES DECIDED BLS IS BEST NO CHAIR VAN AVAILABLE ETA OF 11:15
--- NOTE | 2022-08-09 10:54 | MHC.RECOVRN ---
Discussed options/barriers with pt. Pt decided to dc home, retrieve walker, follow up with [facility] from home. Provider aware. Plan to be transported by S.
--- NOTE | 2022-08-09 12:08 | MHC.EDTECH ---
@11:59AM TEXT TO LUECRO/MARISA [facility] BASIC CHECKING ON BLS TX FOR THIS PT THE ETA WAS GIVEN 11:15AM AND THEY HAVE NOT ARRIVED YET THEY ARE LOOKING IN TO IT
== END 2022-08-09 12:36 | disposition home or self-care (01) ==
PROVIDERS: Physician Assistant; Emergency Provider Internal Medicine
DX: F10.220 Alcohol dependence with intoxication, uncomplicated (principal); Y90.6 Blood alcohol level of 120-199 mg/100 ml; Z20.822 Contact with and (suspected) exposure to COVID-19; R26.81 Unsteadiness on feet; I10 Essential (primary) hypertension; E78.5 Hyperlipidemia, unspecified; Z79.899 Other long term (current) drug therapy
CPT/HCPCS: 36415; 70450; 71045; 72125; 73564; 80053; 80307; 82077; 83735; 85025; 87502; 87635; 99284

== ENCOUNTER 2022-08-10 14:19 | Emergency (ER) | payer MEDICAID, SELFPAY ==
[2022-08-10 14:26] VITALS: BP 106/79; PULSE 92; RESP 18; TEMP 36.7; O2SAT 99; BMI 25.8
--- NOTE | 2022-08-10 15:35 | ED_ITS ---
HPI - Alcohol General Chief Complaint: ETOH/Substance Use Stated Complaint: ETOH INTOX, WANTS DETOX PER EMS Time Seen by Provider: 08/10/22 14:29 Source: patient Mode of arrival: EMS Limitations: no limitations History of Present Illness HPI narrative: 52-year-old male presents to emergency department for alcohol intoxication patient basin baseline ambulates with walker was here for several days but could go to a fdc or to his detox filled because he did have his walker he presents again today without his walker 1 day later. Patient denies SI or HI he admits to drinking heavily. Related Data Previous Rx's Medication Instructions Recorded walker #1 ea 07/05/21 lidocaine 5 % topical patch 1 patch topical DAILY PRN pain #15 03/03/22 ea amoxicillin 875 mg-potassium 1 tab PO BID #14 tabs 08/09/22 clavulanate 125 mg tablet Allergies Allergy/AdvReac Type Severity Reaction Status Date / Time clams Allergy Severe HIVES, Verified 03/03/22 16:03 DIFFICULTY BREATHING Review of Systems Review of Systems: Review of systems: General: Patient denies any fever chills recent illness or falls Musculoskeletal: Denies back pain or body aches or other injuries HEENT: denies headache, runny nose, ear pain Respiratory: denies shortness of breath, cough Cardiovascular: no chest pain or palpitations : denies dysuria, frequency Abdomen: no nausea vomiting denies abdominal pain Extremities: no swelling, no pain Skin: no diaphoresis Yes all other systems are reviewed and are negative PMFSH Past Medical History Medical History ETOH abuse High cholesterol HTN (hypertension) Social History Social History Alcohol intake: current Alcohol intake frequency: 3 or more drinks per day Alcohol type: beer Patient Tobacco Use Status: Never used Tobacco Advance Directives: No Advance Directives Information Provided: No service: No Current occupational status: unemployed Physical Exam ED Vital Signs: Vital Signs - 24 hr 08/10/22 14:26 Temperature 98.0 F Pulse Rate 92 Respiratory Rate 18 Blood Pressure 106/79 Pulse Oximetry 99 Oxygen Delivery Method Room Air BMI result Body Mass Index 25.8 General: Well-appearing well-nourished in no signs of distress HEENT: Normocephalic atraumatic Neck: No signs of JVD, no masses no tenderness or lymphadenopathy Cardiovascular: Regular rate and rhythm Respiratory: Clear to auscultation bilaterally Abdomen: Soft nontender no masses Extremities: Normal pedal pulses no signs of edema Skin: Dry warm no rashes Back: No tenderness full ROM Medical Decision Making Medical Decision Making [facility] Narrative: I will send labs watch the patient here in the ED again patient has Librium patient was signed out to oncoming doctor. Differential Diagnosis Differential Diagnoses: The differential diagnosis associated with the presentation includes Alcohol intoxication hepatitis gastritis or pancreatitis. Discharge Plan Discharge Clinical Impression: Alcoholic intoxication Patient Disposition: Still a Patient Prescriptions: No Action (DME) nathaniel Owusuc See Rx Instructions .Route Qty: 1 0RF Rx Instructions: As directed amoxicillin-pot clavulanate 875-125 mg tablet 1 tab PO BID Qty: 14 0RF lidocaine 5 % adhesive patch,medicated 1 patch topical DAILY PRN (Reason: pain) Qty: 15 0RF Rx Instructions: leave on most painful area for up to 12 hrs
[2022-08-10 15:40] VITALS: BP 109/72; PULSE 72; RESP 16; TEMP 37; O2SAT 98
[2022-08-10 16:16] LABS: Basophils Percent Auto 0.4 % (0-2); Hemoglobin 13.2 g/dl (14.0-18.0); Imm Gran Abs Auto 0.01 X10*3/uL (0.00-0.03); Imm Gran Pct Auto 0.2 % (0.0-0.4); Mean Corpuscular Hemoglobin 29.5 pg (27.0-33.0); PLT CLUMP 1; Red Blood Count 4.47 X10*6/uL (4.60-5.80); SCAN SMEAR FLAG 1
[2022-08-10 16:18] LABS: Eosinophils Absolute Auto 0.2 X10*3/uL (0.0-0.4); Eosinophils Percent Auto 3.8 % (0-4); Hematocrit 40.1 % (42.0-52.0); Lymphocytes Absolute Auto 0.8 X10*3/uL (1.2-4.9); Lymphocytes Percent Auto 17.4 % (20-40); Mean Corpuscular HGB Conc 32.9 g/dl (31.0-36.0); Mean Corpuscular Volume 89.7 fL (80.0-98.0); Mean Platelet Volume 10.9 fL (9.4-12.4); Monocytes Absolute Auto 0.7 X10*3/uL (0.1-1.2); Monocytes Percent Auto 13.8 % (2-11); Neutrophils Absolute Auto 3.1 x10*3/uL (2.0-8.3); Neutrophils Percent Auto 64.4 % (45-73); Red Cell Distribution Width 13.6 % (11.0-16.0)
[2022-08-10 16:24] LABS: Ethanol 186 mg/dL
[2022-08-10 16:25] LABS: MANUAL DIFF FLAG NO; Platelet Count 129 X10*3/uL (160-400); White Blood Count 4.8 X10*3/uL (4.8-10.8)
--- NOTE | 2022-08-10 16:26 | MHC.RECOVRN ---
Met with pt in [facility] to discuss ATS. Pt does not have his walker with him. Discussed Level 4 ATS, pt agreeable. [facility] may have a bed for pt. Pts referral needs to be faxed to [phone] and pt needs to call [phone] to complete phone intake. Recovery team aware and following.
[2022-08-10 16:28] LABS: COVID-19 Test Negative (Negative); IDNOW Serial# BCCEAD1C
[2022-08-10 16:48] LABS: Alanine Aminotransferase 39 U/L (0-40); Albumin Level 3.6 g/dL (3.5-5.0); Alkaline Phosphatase 55 U/L (39-117); Anion Gap 14 (12-20); Aspartate Amino Transferase 32 U/L (5-37); Bilirubin Direct < 0.2 mg/dL (0.0-0.5); Bilirubin Total 0.5 mg/dL (0.0-1.0); Blood Urea Nitrogen 18 mg/dL (9-16); Calcium 7.9 mg/dL (8.4-10.2); Carbon Dioxide 23 mmol/L (22-29); Chloride 111 mmol/L (96-108); Creatinine Clr Calc Pharmacy 105.3; Estimated Glomerular Filt Rate > 60; Glucose Random 83 mg/dL (60-115); Potassium 3.6 mmol/L (3.3-5.1); Sodium 144 mmol/L (135-145); Total Protein 6.6 g/dL (6.5-8.0)
[2022-08-10 17:20] LABS: Lipase 61 U/L (8-78); Salicylate < 5.0 mg/dL (15-30)
[2022-08-10 17:56] VITALS: BP 110/70; PULSE 74; RESP 16; TEMP 36.3; O2SAT 98
--- NOTE | 2022-08-10 19:26 | MHC.RECOVSUP ---
? Reason for consult: Recovery Support o Current location: ED 17 o Identified substance use concern:AUD - Withdrawal - Seeking ATS (detox) - Support ?Intervention: o ATS bed search started/completed/in process ? Additional information:?Patient consult through email with Bette Montesinos. [employer]ored [employer] Applier was able to connect pt with an intake at [facility] also faxed over paperwork. online content coordinator states pt is not eligible for detox because he doesn't meet the criteria of a level 4 and they don't accept his insurance. Pt can either be discharged or work with the Recovery Team in the morning.
--- NOTE | 2022-08-10 23:08 | PC.NURSE ---
Patient requested mateo jaja and turkey sandwich.
--- NOTE | 2022-08-10 23:35 | PC.NURSE ---
Patient had turkey sandwich and mateo jaja, patient tolerated food and fluids well. This RN offered patient to change in hospital attire, patient refused. VSS. No s/s of ETOH withdrawal noted. CIWA scale completed, patient scored 3.
--- NOTE | 2022-08-11 04:50 | PC.NURSE ---
Patient is sleeping, reparations even, unlabored. No s/s of distress noted.
[2022-08-11 08:35] VITALS: BP 144/86; PULSE 74; RESP 18; TEMP 37.1; O2SAT 97
--- NOTE | 2022-08-11 11:04 | MHC.RECOVRN ---
At this time, detox bedsearch exhausted, [facility] [place] Patient to d/c to friends [address], patient verbalized understanding. Provider aware, this sports book writer to coordinate Lyft ride.
== END 2022-08-11 12:19 | disposition home or self-care (01) ==
PROVIDERS: Emergency Provider Student in an Organized Health Care Education/Training Program
DX: F10.220 Alcohol dependence with intoxication, uncomplicated (principal); Y90.6 Blood alcohol level of 120-199 mg/100 ml; Z20.822 Contact with and (suspected) exposure to COVID-19; R26.81 Unsteadiness on feet; I10 Essential (primary) hypertension; E78.5 Hyperlipidemia, unspecified
CPT/HCPCS: 36415; 80048; 80076; 80179; 82077; 83690; 85025; 87635; 99285

== ENCOUNTER 2022-08-17 17:09 | Emergency (ER) | payer MEDICAID, SELFPAY ==
[2022-08-17 17:14] VITALS: BP 130/78; BP 135/75; PULSE 70; RESP 16; TEMP 36.8; O2SAT 95; BMI 21.2
[2022-08-17 17:17] VITALS: BP 129/96; PULSE 93; RESP 18; TEMP 36.4; O2SAT 98
--- NOTE | 2022-08-17 17:19 | PC.NURSE ---
52 y/o M ANABELLA from [facility] with ETOH intoxication, last drink prior to arrival, pt states he would like DETOX. no other complaints, was seen here for same yesterday. VSS.
[2022-08-17 17:40] LABS: MANUAL DIFF FLAG NO
[2022-08-17 17:41] LABS: Eosinophils Absolute Auto 0.1 X10*3/uL (0.0-0.4); Eosinophils Percent Auto 2.4 % (0-4); Hematocrit 42.7 % (42.0-52.0); Hemoglobin 14.3 g/dl (14.0-18.0); Lymphocytes Absolute Auto 0.9 X10*3/uL (1.2-4.9); Mean Corpuscular HGB Conc 33.5 g/dl (31.0-36.0); PLT CLUMP 1; SCAN SMEAR FLAG 1
[2022-08-17 17:43] LABS: Basophils Percent Auto 0.5 % (0-2); Imm Gran Abs Auto 0.03 X10*3/uL (0.00-0.03); Imm Gran Pct Auto 0.5 % (0.0-0.4); Lymphocytes Percent Auto 15.4 % (20-40); Mean Corpuscular Hemoglobin 30.1 pg (27.0-33.0); Mean Corpuscular Volume 89.9 fL (80.0-98.0); Mean Platelet Volume 10.8 fL (9.4-12.4); Monocytes Absolute Auto 0.8 X10*3/uL (0.1-1.2); Neutrophils Percent Auto 68.2 % (45-73); Platelet Count 115 X10*3/uL (160-400); Red Blood Count 4.75 X10*6/uL (4.60-5.80); Red Cell Distribution Width 13.5 % (11.0-16.0); White Blood Count 5.8 X10*3/uL (4.8-10.8)
[2022-08-17 18:01] LABS: Alanine Aminotransferase 37 U/L (0-40); Albumin Level 3.8 g/dL (3.5-5.0); Alkaline Phosphatase 65 U/L (39-117); Anion Gap 12 (12-20); Aspartate Amino Transferase 37 U/L (5-37); Bilirubin Total 0.9 mg/dL (0.0-1.0); Blood Urea Nitrogen 17 mg/dL (9-16); Calcium 8.4 mg/dL (8.4-10.2); Carbon Dioxide 27 mmol/L (22-29); Chloride 105 mmol/L (96-108); Creatinine Clr Calc Pharmacy 102.1; Estimated Glomerular Filt Rate > 60; Ethanol 251 mg/dL; Glucose Random 115 mg/dL (60-115); Potassium 3.4 mmol/L (3.3-5.1); Sodium 141 mmol/L (135-145); Total Protein 7.1 g/dL (6.5-8.0)
--- NOTE | 2022-08-17 18:45 | MHC.RECOVSUP ---
PT IS A 52YR OLD MALE WHO CAME TO THE ED FOR ALCOHOL INTOXICATION. WENT TO SEE PT AND ASKED IF HE WOULD BE INTERESTED IN GOING TO DETOX. PT STATED YES. ALSO PT STATED THAT HE WAS JUST AT [facility] BUT GOT KICK OUT FOR INAPPROPRIATE BEHAVIOR. I WAS ABLE TO CONNECT WITH [facility] AND THEY TOLD ME .BECAUSE OF HIS CONDITION (NEEDS WALKER) AND ALSO HE CAN'T TAKE CARE OF HIMSELF . HE WOULD NOT BE CONSIDER.ALSO MR. HERNANDEZ HAS BEEN THERE 4 TIMES THIS MONTH ALONE.I WAS ABLE TO SPEAK TO THE PROVIDER AND EXPLAIN WHAT Pearl TOLD ME. AT THIS POINT I WILL GIVE MR. HERNANDEZ SOME RESOURCES AND INFORMATION.
--- NOTE | 2022-08-17 22:51 | PC.NURSE ---
pt awake in [facility]ores bed A+O x 4. no new needs at this time. call and cooperative
[2022-08-17 22:55] VITALS: BP 129/76; PULSE 77; RESP 15; TEMP 36.7; O2SAT 96
--- NOTE | 2022-08-18 00:30 | ED_ITS ---
HPI - Alcohol General Chief Complaint: ETOH/Substance Use Stated Complaint: ETOH Time Seen by Provider: 08/17/22 17:19 Source: patient Mode of arrival: EMS History of Present Illness HPI narrative: 52-year-old male who is intoxicated and states that he wishes to go to detox and otherwise denies any shortness of breath, chest pain/palpitations, abdominal discomfort. Related Data Previous Rx's Medication Instructions Recorded walker #1 ea 07/05/21 lidocaine 5 % topical patch 1 patch topical DAILY PRN pain #15 03/03/22 ea amoxicillin 875 mg-potassium 1 tab PO BID #14 tabs 08/09/22 clavulanate 125 mg tablet Allergies Allergy/AdvReac Type Severity Reaction Status Date / Time clams Allergy Severe HIVES, Verified 03/03/22 16:03 DIFFICULTY BREATHING Review of Systems Review of Systems: Pertinent positives and negatives as stated in HPI [facility] Past Medical History Source: nursing notes reviewed Medical History ETOH abuse High cholesterol HTN (hypertension) Social History Social History Alcohol intake: current Alcohol intake frequency: 3 or more drinks per day Alcohol type: beer and hard liquor Patient Tobacco Use Status: Never used Tobacco Use of substances other than those prescribed or required for medical reasons: Refusing to respond Advance Directives: No Advance Directives Information Provided: No service: No Current occupational status: unemployed Physical Exam ED Vital Signs: Vital Signs - 24 hr 08/17/22 17:14 08/17/22 17:17 08/17/22 22:55 Temperature 98.2 F 97.6 F 98.0 F Pulse Rate 70 93 77 Respiratory Rate 16 18 15 Blood Pressure 135/75 129/96 H 129/76 Pulse Oximetry 95 98 96 Oxygen Delivery Method Room Air Room Air Room Air BMI result Body Mass Index 21.2 VITAL SIGNS: Reviewed. GENERAL: Well developed, well nourished, in no acute distress, intoxicated. HEAD: Normocephalic/atraumatic EYES: PERRLA, EOMI LUNGS: Normal breath sounds. No adventitious sounds or accessory muscle use. SpO2<98> CARDIOVASCULAR: Regular rate and rhythm without noted murmurs, no JVD or lower extremity edema. ABDOMEN: Soft, non-tender, non-distended with bowel sounds. MUSCULOSKELETAL: No tenderness, deformities, or effusions noted on gross inspection. EXTREMITIES: No cyanosis, clubbing or edema. SKIN: Inspection of the skin reveals no rashes NEUROLOGIC: Alert and oriented x 3. Strength and sensation to light touch were grossly intact x 4. Medical Decision Making Medical Decision Making [facility] Narrative: This is a 52-year-old male who presents with alcohol intoxication and is requesting detox, however he has been at some local facilities multiple times, not shown up for his appointments, and currently after being reviewed by the coach tour driver Daisy Castro is not answering the phone so unable to confirm whether not they have beds at this time. [place] is not accepting this gentleman due to poor compliance. Patient is otherwise medically cleared, have reviewed all of his imaging studies. Patient has no history seizures but will remain under observation until he is sober and will ask recovery team to evaluate him in the morning. Patient placed in physician observation because the patient needed more time for becoming sober. At the time observation was started the patient's vital signs were stable, patient is alert and oriented, neuro: Nonfocal, CV RRR, lungs clear Differential Diagnosis Differential Diagnoses: The differential diagnosis associated with the presentation includes Please see the discussion above Lab Data [facility] Lab Attestation statement: I reviewed the patient's lab results. Please see the discussion above 08/17/22 17:35 08/17/22 17:35 Labs: Lab Results 08/17/22 08/17/22 Range/Units 17:35 17:35 WBC 5.8 (4.8-10.8) X10*3/uL RBC 4.75 (4.60-5.80) X10*6/uL Hgb 14.3 (14.0-18.0) g/dl Hct 42.7 (42.0-52.0) % MCV 89.9 (80.0-98.0) fL MCH 30.1 (27.0-33.0) pg MCHC 33.5 (31.0-36.0) g/dl RDW 13.5 (11.0-16.0) % Plt Count 115 L (160-400) X10*3/uL MPV 10.8 (9.4-12.4) fL Immature Gran % (Auto) 0.5 H (0.0-0.4) % Neut % (Auto) 68.2 (45-73) % Lymph % (Auto) 15.4 L (20-40) % Garza % (Auto) 13.0 H (2-11) % Eos % (Auto) 2.4 (0-4) % Baso % (Auto) 0.5 (0-2) % Lymph # (Auto) 0.9 L (1.2-4.9) X10*3/uL Garza # (Auto) 0.8 (0.1-1.2) X10*3/uL Eos # (Auto) 0.1 (0.0-0.4) X10*3/uL Baso # (Auto) 0.0 (0.0-0.2) X10*3/uL Abs Immat Gran (auto) 0.03 (0.00-0.03) X10*3/uL Absolute Neuts (auto) 4.0 (2.0-8.3) x10*3/uL Absolute Nucleated RBC 0.000 (0.0-0.012) X10*3/uL Nucleated RBC % (auto) 0.0 (0.0-0.2) /100WBC Sodium 141 (135-145) mmol/L Potassium 3.4 (3.3-5.1) mmol/L Chloride 105 (96-108) mmol/L Carbon Dioxide 27 (22-29) mmol/L Anion Gap 12 (12-20) BUN 17 H (9-16) mg/dL Creatinine 0.76 (0.5-1.4) mg/dL Estim Creat Clear Calc 102.1 Estimated GFR > 60 Random Glucose 115 (60-115) mg/dL Calcium 8.4 D (8.4-10.2) mg/dL Total Bilirubin 0.9 (0.0-1.0) mg/dL AST 37 (5-37) U/L ALT 37 (0-40) U/L Alkaline Phosphatase 65 (39-117) U/L Total Protein 7.1 (6.5-8.0) g/dL Albumin 3.8 (3.5-5.0) g/dL Ethyl Alcohol 251 mg/dL Discharge Plan Discharge Clinical Impression: Alcoholic intoxication, Unsteady gait, Alcohol use disorder Patient Disposition: Still a Patient Prescriptions: No Action (DME) nathaniel Arriaga See Rx Instructions .Route Qty: 1 0RF Rx Instructions: As directed amoxicillin-pot clavulanate 875-125 mg tablet 1 tab PO BID Qty: 14 0RF lidocaine 5 % adhesive patch,medicated 1 patch topical DAILY PRN (Reason: pain) Qty: 15 0RF Rx Instructions: leave on most painful area for up to 12 hrs Interventions: [place]-Suicide Risk Severity Scale Last Done: 08/17/22 17:16
[2022-08-18 05:14] VITALS: BP 121/81; PULSE 76; RESP 16; TEMP 36.7; O2SAT 100
--- NOTE | 2022-08-18 05:20 | MHC.EDTECH ---
pt is resting quietly, urinal emptied, sandwiches were given a a drink
--- NOTE | 2022-08-18 05:35 | PC.NURSE ---
Patient was just transferred from main ED, ambulates steady with walker, compliant with private branch exchange service advisor, care consult ordered/pending evaluation, med rec completed/currently not on any home medication, behavior non concerning, will continue to monitor.
[2022-08-18 06:01] LABS: Appearance Urine Clear; Color Urine Yellow; Glucose Urine UA Negative (Negative); Leukocyte Esterase Urine Negative (Negative); Nitrite Urine Negative (Negative); PH 5.5 (5.0-9.0); Urine Blood Negative (Negative); Urine Ketones Negative (Negative); Urine Protein Negative (Neg-Trace)
[2022-08-18 06:15] LABS: Amphetamine Screen Urine Not Detected (Not Detect); Barbiturates, Urine Not Detected (Not Detect); Benzodiazepines Screen Urine Not Detected (Not Detect); Cannabinoid Screen Urine Not Detected (Not Detect); Cocaine Screen Urine Not Detected (Not Detect); Fentanyl, urine Not Detected (Not Detect); Opiate Screen Urine Not Detected (Not Detect); Phencyclidine Screen Urine Not Detected (Not Detect)
[2022-08-18 06:21] LABS: COVID-19 Test Negative (Negative); IDNOW Serial# 6674DD1D
[2022-08-18 07:22] VITALS: BP 127/84; PULSE 112; RESP 16; TEMP 37.2; O2SAT 97
--- NOTE | 2022-08-18 07:41 | PC.NURSE ---
pt is sleeping resp even and unlabored.
[2022-08-18 09:27] VITALS: BP 123/91; PULSE 95; RESP 16; TEMP 36.9; O2SAT 96
--- NOTE | 2022-08-18 09:45 | PC.NURSE ---
pt amb (i) gait steady bathroom with walker. pt took a shower given clean hosp garment. pt floor moped/cleaned by environmental and clean linen changed by pct.
--- NOTE | 2022-08-18 10:23 | PC.NURSE ---
pt seen by antique furniture repairer (em), pt aware of plan of care.
--- NOTE | 2022-08-18 10:44 | MHC.RECOVRN ---
This technical document writer familiar with patient and met with patient at the bedside. Patient is not eligible for detox and has been denied admission into all local detoxes and medical level of care detoxes. T/W reviewed resources at the bedside, [facility] for recovery support, list of local shelters, resource list for food/clothing, resources left at bedside. Due to difficulty with ambulation, t/w will get Lyft for patient to friends home at [address] [place] [address]. Patient verbalized understanding. ED Pod RN and provider aware.
== END 2022-08-18 13:22 | disposition home or self-care (01) ==
PROVIDERS: Emergency Provider Student in an Organized Health Care Education/Training Program
DX: F10.129 Alcohol abuse with intoxication, unspecified (principal); R26.81 Unsteadiness on feet; Y90.8 Blood alcohol level of 240 mg/100 ml or more; Z71.41 Alcohol abuse counseling and surveillance of alcoholic; Z20.822 Contact with and (suspected) exposure to COVID-19; Z20.828 Contact with and (suspected) exposure to other viral communicable diseases; Z79.899 Other long term (current) drug therapy
CPT/HCPCS: 36415; 80053; 80307; 81003; 82077; 85025; 87635; 99284; 99285

== ENCOUNTER 2022-08-18 21:37 | Emergency (ER) | payer MEDICAID, SELFPAY ==
[2022-08-18 21:46] VITALS: BP 108/67; PULSE 106; RESP 16; O2SAT 95; O2SAT 99; BMI 25.7
--- NOTE | 2022-08-18 22:19 | PC.NURSE ---
Pt sleeping at the bedside in c-collar. Breaths are even and unlabored in no apparent distress. Pending provider evaluation.
--- NOTE | 2022-08-18 22:44 | ED.FALL ---
HPI - Fall General Chief Complaint: Fall Stated Complaint: Fall- ETOH Time Seen by Provider: 08/18/22 22:42 Source: patient Mode of arrival: EMS History of Present Illness HPI Narrative: Patient alcoholic been here multiple times almost every 2 weeks with fall had multiple CT scan more than 20 times/yr comes here claiming that he slumped down no signs of injury noticed been sleeping here alert oriented x3 no vomiting was here last night also discharge in a.m. Related Data Home Medications Medication Instructions Recorded Confirmed No Known Home Meds 08/18/22 08/18/22 Allergies Allergy/AdvReac Type Severity Reaction Status Date / Time clams Allergy Severe HIVES, Verified 03/03/22 16:03 DIFFICULTY BREATHING Review of Systems Review of Systems: Yes all other systems are reviewed and are negative [facility] Past Medical History Medical History ETOH abuse High cholesterol HTN (hypertension) Social History Social History Alcohol intake: current Alcohol intake frequency: 3 or more drinks per day Alcohol type: beer and hard liquor Patient Tobacco Use Status: Never used Tobacco Advance Directives: No Advance Directives Information Provided: Yes service: No Current occupational status: unemployed Physical Exam Vital Signs: Vital Signs: Last Vital Signs Temp 98.1 F 08/19/22 04:11 Pulse 78 08/19/22 04:11 Resp 19 08/19/22 04:11 BP 104/68 08/19/22 04:11 Pulse Ox 94 08/19/22 04:11 O2 Del Method 08/19/22 04:11 BMI result Body Mass Index 25.7 Appearance: Alert. Oriented X3. No acute distress. ETOH Eyes: PERRLA, No Nystagmus ENT: Pharynx normal. Oral Mucosa moist AT NC Neck: Normal inspection. Neck supple. No midline tenderness CVS: Normal heart rate and rhythm. Pulses normal. Respiratory: No respiratory distress. Equal air entry bilateral, no wheezing/rales/rhonchi Abdomen: Soft and nontender. Bowel sounds are present, no mass palpable, no CVA tenderness Skin: Skin warm and dry. Normal skin color. Normal skin turgor. Extremities: No lower extremity edema. No calf tenderness Neuro: Oriented X 3. No motor deficit. No sensory deficit.No cerebellar signs , cranial nerves II-XII intact Medical Decision Making Medical Decision Making MDM Narrative: 04:20 Patient alcoholic not does detox comes at almost every week for questionable fall with no signs of injury was seen here last night came back again will discharge patient home advised to follow with detox patient ambulatory in a steady gait at the time of discharge Discharge Plan Discharge Clinical Impression: Alcohol intoxication Patient Disposition: Home, Self-Care Instructions: Abuse of Alcohol (ED) Additional Instructions: Stop drinking alcohol go to detox Prescriptions: No Action No Known Home Meds Interventions: ED Discharge Assessment Last Done: 08/19/22 04:53 Discharge Date/Time: 08/19/22 04:53
[2022-08-19 04:11] VITALS: BP 104/68; PULSE 78; RESP 19; TEMP 36.7; O2SAT 94
== END 2022-08-19 04:53 | disposition home or self-care (01) ==
PROVIDERS: Emergency Provider Internal Medicine
DX: F10.220 Alcohol dependence with intoxication, uncomplicated (principal); Y90.9 Presence of alcohol in blood, level not specified; I10 Essential (primary) hypertension; E78.5 Hyperlipidemia, unspecified
CPT/HCPCS: 99283

== ENCOUNTER 2022-08-22 18:58 | Emergency (ER) | payer MEDICAID, SELFPAY ==
[2022-08-22 19:14] VITALS: BP 123/81; PULSE 82; RESP 18; TEMP 36.7; O2SAT 99; BMI 56.9
--- NOTE | 2022-08-22 21:45 | MHC.RECOVSUP ---
Reason for consult. recovery support o Current location: ED6 o Identified substance use concern: ALCOHOL <del>-</del> <del>Overdose</del> <del>-</del> <del>Withdrawal</del> <del>-</del> <del>Seeking</del> <del>ATS</del> <del>(detox)</del> <del>-</del> <del>Support</del> <del>?</del> <del>Intervention:</del> <del>o</del> <del>ATS</del> <del>bed</del> <del>search</del> <del>started/completed/in</del> <del>process</del> <del>o</del> <del>MAT</del> <del>started</del> <del>or</del> <del>to</del> <del>be</del> <del>started</del> <del>o</del> <del>Community</del> <del>resources</del> <del>provided</del> <del>o</del> <del>Harm</del> <del>reduction</del> <del>discussion</del> <del>?</del> <del>Plan:</del> <del>o</del> <del>Referral</del> <del>to</del> <del>[facility]</del> <del>o</del> <del>Bed</del> <del>search</del> <del>in</del> <del>progress</del> <del>to</del> <del>o</del> <del>Follow</del> <del>up</del> <del>tomorrow</del> <del>o</del> <del>Patient</del> <del>awaiting</del> <del>crisis</del> <del>evaluation</del> <del>o</del> <del>Patient</del> <del>to</del> <del>follow</del> <del>up</del> <del>with</del> <del>[facility]</del> <del>after</del> <del>discharge</del> ? Additional information: I was not able to meet or speak with the pt. I was told that the doctor will seek to try and get pt sectioned because of the number of times the pt has been to the ED for alcohol use.
[2022-08-22 23:51] VITALS: BP 122/70; PULSE 72; RESP 16; TEMP 36.6; O2SAT 97
--- NOTE | 2022-08-23 00:21 | PC.NURSE ---
pt is sleeping at this time no sign of distress.
--- NOTE | 2022-08-23 01:09 | ED.ALCOHOL ---
HPI - Alcohol General Chief Complaint: ETOH/Substance Use Stated Complaint: etoh Time Seen by Provider: 08/22/22 19:02 Source: patient Mode of arrival: EMS History of Present Illness HPI narrative: 52-year-old male who is brought in by EMS with alcohol intoxication. Related Data Home Medications Medication Instructions Recorded Confirmed No Known Home Meds 08/18/22 08/18/22 Allergies Allergy/AdvReac Type Severity Reaction Status Date / Time clams Allergy Severe HIVES, Verified 03/03/22 16:03 DIFFICULTY BREATHING Review of Systems Review of Systems: Pertinent positives and negatives as stated in HPI [facility] Past Medical History Source: nursing notes reviewed Medical History ETOH abuse High cholesterol HTN (hypertension) Social History Social History Alcohol intake: current Alcohol intake frequency: 3 or more drinks per day Alcohol type: beer and hard liquor Patient Tobacco Use Status: Never used Tobacco Use of substances other than those prescribed or required for medical reasons: Yes Advance Directives: No Advance Directives Information Provided: No service: No Current occupational status: unemployed Physical Exam ED Vital Signs: Vital Signs - 24 hr 08/22/22 19:14 08/22/22 23:51 Temperature 98.1 F 97.9 F Pulse Rate 82 72 Respiratory Rate 18 16 Blood Pressure 123/81 122/70 Pulse Oximetry 99 97 Oxygen Delivery Method Room Air Room Air BMI result Body Mass Index 56.9 VITAL SIGNS: Reviewed. GENERAL: Chronic alcohol use, in no acute distress. HEAD: Normocephalic/atraumatic EYES: PERRLA, EOMI EARS: Ext canals without abnormality LUNGS: Normal breath sounds. No adventitious sounds or accessory muscle use. SpO2<99> CARDIOVASCULAR: Regular rate and rhythm without noted murmurs ABDOMEN: Soft, non-tender, non-distended with bowel sounds. SKIN: Inspection of the skin reveals no rashes NEUROLOGIC: Alert and oriented x 3. Strength and sensation to light touch were grossly intact x 4. Medical Decision Making Medical Decision Making MDM Narrative: 52-year-old male who has recurrent visits for alcohol intoxication and thus far a number detox facilities are declining acceptance of this patient due to negative interactions and low interest by patient himself. The care team has been unable to assist with getting patient into a [address] program and I do not think that this patient has family members which can be contacted to initiate this process. At this time will place patient in observation and discharge in the morning. Patient has no history severe alcohol withdrawal. Differential Diagnosis Please see the discussion above Critical Care Time Critical Care Time Critical Care Time: Yes Total Critical Care Time: 30 Attestation: I personally attest to this time spent taking care of the patient. Discharge Plan Discharge Clinical Impression: Alcoholic intoxication, Alcohol use disorder Prescriptions: No Action No Known Home Meds Interventions: [place]-Suicide Risk Severity Scale Last Done: 08/23/22 00:10
--- NOTE | 2022-08-23 05:18 | PC.NURSE ---
pt is sleeping no sign of withdraw at this time. pt sleeping with no sign fo distress at this time.
[2022-08-23 05:49] VITALS: BP 146/79; PULSE 79; RESP 16; O2SAT 95
== END 2022-08-23 06:04 | disposition home or self-care (01) ==
PROVIDERS: Emergency Provider Student in an Organized Health Care Education/Training Program
DX: F10.220 Alcohol dependence with intoxication, uncomplicated (principal); Y90.9 Presence of alcohol in blood, level not specified; I10 Essential (primary) hypertension; E78.5 Hyperlipidemia, unspecified
CPT/HCPCS: 99284

== ENCOUNTER 2022-08-26 16:02 | Inpatient (IN) | payer MEDICAID, SELFPAY ==
--- NOTE | ~2022-08-26 | XR_ITS ---
EXAMINATION: XR CHEST CLINICAL INFORMATION: Shortness of breath, bibasilar crackles. COMPARISON: Chest radiograph 08/26/2022. TECHNIQUE: Frontal view of the chest was obtained. FINDINGS: Multifocal airspace opacities are not significantly changed compared to yesterday's examination. Stable small left-sided pleural effusion. No pneumothorax. Unchanged appearance of the cardiomediastinal silhouette. No acute osseous abnormalities. XR/XR chest 1V IMPRESSION: No significant change when compared to yesterday's examination with persistent multifocal airspace opacities and a small left-sided pleural effusion.
--- NOTE | ~2022-08-26 | XR_ITS ---
EXAMINATION: XR CHEST CLINICAL INFORMATION: Shortness of breath. COMPARISON: 08/27/2022 chest radiograph. TECHNIQUE: Frontal view of the chest was obtained. FINDINGS: There has been mild interval decrease in previously seen patchy opacities. Mild prominence of the pulmonary vasculature has mildly decreased as well. There is minimal blunting of the left costophrenic angle without significant change. The heart and mediastinal structures are unremarkable. XR/XR chest 1V IMPRESSION: Mild interval improvement in bilateral patchy opacities. These remain nonspecific and could be infectious/inflammatory in etiology however, a cardiogenic etiology cannot be excluded. Correlate clinically.
--- NOTE | ~2022-08-26 | XR_ITS ---
EXAMINATION: XR CHEST CLINICAL INFORMATION: Fever. COMPARISON: 08/08/2022. TECHNIQUE: Frontal view of the chest was obtained. FINDINGS: Low lung volumes and evaluation. Diffuse patchy opacities have mildly increased with asymmetric increased markings in the left lower lung. The heart and mediastinal structures are unremarkable. XR/XR chest 1V IMPRESSION: Interval increase in bilateral patchy infiltrates. These remain nonspecific and could represent an infectious/inflammatory process however, a cardiogenic etiology cannot be excluded. Correlate clinically.
--- NOTE | ~2022-08-26 | CT_ITS ---
EXAMINATION: CT CHEST, ABDOMEN AND PELVIS WITHOUT CONTRAST CLINICAL INFORMATION: Bandemia COMPARISON: 03/03/2022 TECHNIQUE: Multidetector volumetric imaging was performed from the thoracic inlet through the pubic symphysis. Sagittal and coronal reformatted images were obtained on the technologist's workstation. Axial MIP volume rendering provided. This CT examination was performed using dose optimization techniques as appropriate, variously including the following: *Automated exposure control *Adjustment of mA and/or kV according to patient size (this includes techniques or standardized protocols for targeted exams where dose is matched to indication/reason for exam; i.e. extremities or head) *Use of iterative reconstruction technique DLP: 826 mGy-cm FINDINGS: CHEST: Lungs: Limited detailed evaluation of the lung parenchyma due to respiratory motion artifact. Underlying chronic lung disease is suspected with subpleural reticulation and fibrosis, better demonstrated on 03/03/2022. Currently there is superimposed consolidation most prominently in the lingula and left lower lobe, and to a lesser degree scattered in the right lung. Mediastinum: The visualized thyroid gland is unremarkable. Interval increase in size of mediastinal lymph nodes compared to prior, which may be reactive. For example, there is a right paratracheal lymph node on image 19/57 measuring 1.5 cm in short axis dimension, versus 1.1 cm previously. Cardiac size is within normal limits; no pericardial effusion. Coronary Artery Calcification: None visualized on this study. Pleura: No pneumothorax or significant pleural effusion. Chest Wall/Axilla: Unremarkable. ABDOMEN/PELVIS: Suboptimal assessment in some regions due to motion artifact. Liver, Gallbladder, Biliary Tree: The liver is normal in size, shape, and attenuation. No focal hepatic lesion or biliary ductal dilatation is identified. Gallbladder appears grossly unremarkable. Pancreas: Unremarkable. Spleen: Unremarkable. Adrenal Glands: Unremarkable. Kidneys and Ureters: The kidneys are normal in size, shape, and attenuation. No hydronephrosis or hydroureter or calculi seen. No perinephric stranding. Bladder: Unremarkable. Gastrointestinal Tract: No evidence of bowel obstruction or significant wall thickening. The appendix is unremarkable. No free fluid or free air is seen. Abdominal Wall: No hernia is demonstrated. Lymphovascular Structures: Lymph nodes: Normal. Vascular: Trace atherosclerotic calcification. Pelvic Viscera: Unremarkable. OSSEOUS STRUCTURES: There is subacute appearing fractures of the anterior left sixth and seventh ribs. Chronic anterolisthesis of L5 on S1. Chronic mild anterior wedge compression deformity of L1. CT/CT abdomen pelvis wo IV con IMPRESSION: 1. Suboptimal assessment in some regions due to motion artifact. 2. Underlying chronic lung disease with superimposed consolidation in the lingula and left lower lobe, and to a lesser degree scattered in the right lung, concerning for pneumonia or aspiration in the proper clinical setting. 3. Interval increase in size of mediastinal lymph nodes compared to 03/03/2022, which may be reactive. 4. Subacute appearing fractures of the anterior left sixth and seventh ribs. 5. No acute findings identified in the abdomen or pelvis.
[2022-08-26 16:21] VITALS: BP 150/69; PULSE 67; PULSE 94; RESP 17; TEMP 36.7; O2SAT 93; O2SAT 98; BMI 25.8
--- NOTE | 2022-08-26 18:25 | ED.ALCOHOL ---
HPI - Alcohol General Chief Complaint: ETOH/Substance Use Stated Complaint: seeking detox/ medical clearance Time Seen by Provider: 08/26/22 17:49 Source: patient and EMS Mode of arrival: EMS Limitations: altered mental status (Intoxicated) History of Present Illness HPI narrative: 52-year-old male brought in by EMS for alcohol intoxication. Was found outside of [facility]. Patient is seeking detox. MD complaint: alcohol intoxication and desires rehab Last drink: Just prior to admission Chronic alcohol use: Yes Previous visits for alcohol intoxication: Yes Recent trauma: No Associated symptoms: denies other symptoms Treatments prior to arrival: none Related Data Home Medications Medication Instructions Recorded Confirmed No Known Home Meds 08/18/22 08/18/22 Allergies Allergy/AdvReac Type Severity Reaction Status Date / Time clams Allergy Severe HIVES, Verified 03/03/22 16:03 DIFFICULTY BREATHING Review of Systems Review of Systems: Psych: Positive alcohol intoxication, positive alcohol abuse Yes all other systems are reviewed and are negative PMFSH Past Medical History Attestation statement: The following information was validated with the patient. Source: old records reviewed Medical History ETOH abuse High cholesterol HTN (hypertension) Social History Social History Alcohol intake: current Alcohol intake frequency: 3 or more drinks per day Alcohol type: beer and hard liquor Patient Tobacco Use Status: Never used Tobacco Advance Directives: No Advance Directives Information Provided: Yes service: No Current occupational status: unemployed Physical Exam ED Vital Signs: Vital Signs - 24 hr 08/26/22 16:21 08/26/22 21:26 08/26/22 23:37 Temperature 98.1 F 100.7 F H 98.4 F Pulse Rate 94 125 H 100 Respiratory Rate 17 14 19 Blood Pressure 150/69 H 139/74 Pulse Oximetry 93 92 92 Oxygen Delivery Method Room Air Room Air Room Air BMI result Body Mass Index 25.8 Appearance: Alert. Oriented X3. Intoxicated. Stench of urine Eyes: Pupils equal, round and reactive to light. Nonicteric. ENT: Pharynx normal. Neck: Normal inspection. Neck supple. CVS: Normal heart rate and rhythm. Pulses normal. Respiratory: No respiratory distress. Breath sounds normal. Skin: Skin warm and dry. Normal skin color. Normal skin turgor. Extremities: Moves all extremities. Gait balance and coordinated. Neuro: No motor deficit. No sensory deficit. Cranial nerves 2-12 intact. Course Course Course Narrative: 52-year-old male presents via for alcohol intoxication, seeking detox. Was found outside of [facility]. Patient states he only had 3 beers and a pt. patient is visibly intoxicated, slurring his words, and smells of urine. Patient is not forthcoming with information, and is at times noncooperative. Patient has a long history of similar presentation, has been declined at multiple detox facility due to his negative interactions and low interest in participation in detox program. Will have recovery team speak to this patient. 22:00 RN updated this VOICE INSTRUCTOR that patient has elevated temperature 100.7 degrees and heart rate of 125. Heart rate can be explained by his alcohol intoxication, will order CBC Chem 7, SARs COVID influenza, and chest x-ray . Will give p.o. doxycycline at this time for suspected upper respiratory symptoms. Labs indicate bandemia, without elevated white count, BUN of 26. Will give IV fluids, ceftriaxone, order chest and CT scan of abdomen pelvis., discussion with hospitalist, plan of care is to admit 01:00 CT scan abdomen pelvis indicates chronic lung disease with consolidation consistent with pneumonia subacute fractures of the ribs, and no acute findings of the abdomen pelvis. Patient admitted with sepsis pneumonia Consultations Consultation #1: Ramos Medical Decision Making Differential Diagnosis Differential Diagnoses: The differential diagnosis associated with the presentation includes Sepsis, pneumonia, acute abdomen Admission/Observation Consideration of admission/observation: Escalation of care including admission/observation considered Patient will require admission Consult Healthcare Provider Management of the patient was discussed with: Hospitalist Lab Data [facility] Lab Attestation statement: I reviewed the patient's lab results. 08/26/22 02:45 08/26/22 22:07 Labs: Lab Results 08/26/22 08/26/22 08/26/22 Range/Units 02:45 19:04 22:06 WBC 7.7 (4.8-10.8) X10*3/uL RBC 4.15 L (4.60-5.80) X10*6/uL Hgb 12.4 L (14.0-18.0) g/dl Hct 37.0 L (42.0-52.0) % MCV 89.2 (80.0-98.0) fL MCH 29.9 (27.0-33.0) pg MCHC 33.5 (31.0-36.0) g/dl RDW 14.6 (11.0-16.0) % Plt Count 112 L (160-400) X10*3/uL MPV 11.9 (9.4-12.4) fL Immature Gran % (Auto) Cancelled Neut % (Auto) Cancelled Lymph % (Auto) Cancelled [place] % (Auto) Cancelled Eos % (Auto) Cancelled Baso % (Auto) Cancelled Lymph # (Auto) Cancelled [place] # (Auto) Cancelled Eos # (Auto) Cancelled Baso # (Auto) Cancelled Abs Immat Gran (auto) Cancelled Absolute Neuts (auto) Cancelled Absolute Nucleated RBC 0.000 (0.0-0.012) X10*3/uL Nucleated RBC % (auto) 0.0 (0.0-0.2) /100WBC Neutrophils % (Manual) 45 (45-73) % Band Neutrophils % 23 H (3-5) % Lymphocytes % (Manual) 7 L (20-40) % Monocytes % (Manual) 24 H (2-11) % Eosinophils % (Manual) 1 (0-4) % Abs Neuts (Manual) 5.2 (2.0-8.3) X10*3/uL Lymphocytes # (Manual) 0.5 L (1.2-4.9) X10*3/uL Monocytes # (Manual) 1.8 H (0.1-1.2) X10*3/uL Eosinophils # (Manual) 0.1 (0.0-0.4) X10*3/uL Toxic Granulation PRESENT Dohle Bodies PRESENT WBC Morphology Comment DYSMORPHIC Platelet Estimate DECREASED (NORMAL) Large Platelets PRESENT Plt Morphology Comment NOTED RBC Morphology NOTED Zach Cells 2+ (3-5) /OIF Acanthocytes (Spur) 1+ (0-2) /OIF Sodium (135-145) mmol/L Potassium (3.3-5.1) mmol/L Chloride (96-108) mmol/L Carbon Dioxide (22-29) mmol/L Anion Gap (12-20) BUN (9-16) mg/dL Creatinine (0.5-1.4) mg/dL Estim Creat Clear Calc Estimated GFR Random Glucose (60-115) mg/dL Lactic Acid (0.5-2.0) mmol/L Calcium (8.4-10.2) mg/dL Total Bilirubin (0.0-1.0) mg/dL Direct Bilirubin (0.0-0.5) mg/dL AST (5-37) U/L ALT (0-40) U/L Alkaline Phosphatase (39-117) U/L Troponin I High Sens (<3.5-35.0) ng/L Total Protein (6.5-8.0) g/dL Albumin (3.5-5.0) g/dL Lipase (8-78) U/L Ethyl Alcohol < 10 mg/dL Influenza Type A (PCR) NEGATIVE (Negative) Influenza Type B (PCR) NEGATIVE (Negative) RSV RNA Qual (PCR) NEGATIVE (Negative) SARS-CoV-2 RNA (RT-PCR) NEGATIVE (Negative) 08/26/22 08/27/22 08/27/22 Range/Units 22:07 00:26 00:27 WBC (4.8-10.8) X10*3/uL RBC (4.60-5.80) X10*6/uL Hgb (14.0-18.0) g/dl Hct (42.0-52.0) % MCV (80.0-98.0) fL MCH (27.0-33.0) pg MCHC (31.0-36.0) g/dl RDW (11.0-16.0) % Plt Count (160-400) X10*3/uL MPV (9.4-12.4) fL Immature Gran % (Auto) Neut % (Auto) Lymph % (Auto) [place] % (Auto) Eos % (Auto) Baso % (Auto) Lymph # (Auto) [place] # (Auto) Eos # (Auto) Baso # (Auto) Abs Immat Gran (auto) Absolute Neuts (auto) Absolute Nucleated RBC (0.0-0.012) X10*3/uL Nucleated RBC % (auto) (0.0-0.2) /100WBC Neutrophils % (Manual) (45-73) % Band Neutrophils % (3-5) % Lymphocytes % (Manual) (20-40) % Monocytes % (Manual) (2-11) % Eosinophils % (Manual) (0-4) % Abs Neuts (Manual) (2.0-8.3) X10*3/uL Lymphocytes # (Manual) (1.2-4.9) X10*3/uL Monocytes # (Manual) (0.1-1.2) X10*3/uL Eosinophils # (Manual) (0.0-0.4) X10*3/uL Toxic Granulation Dohle Bodies WBC Morphology Comment Platelet Estimate (NORMAL) Large Platelets Plt Morphology Comment RBC Morphology [place] Cells /OIF Acanthocytes (Spur) /OIF Sodium 138 (135-145) mmol/L Potassium 4.0 (3.3-5.1) mmol/L Chloride 104 (96-108) mmol/L Carbon Dioxide 23 (22-29) mmol/L Anion Gap 15 (12-20) BUN 26 H (9-16) mg/dL Creatinine 0.91 (0.5-1.4) mg/dL Estim Creat Clear Calc 85.6 Estimated GFR > 60 Random Glucose 217 H (60-115) mg/dL Lactic Acid 1.2 (0.5-2.0) mmol/L Calcium 7.7 L D (8.4-10.2) mg/dL Total Bilirubin (0.0-1.0) mg/dL Direct Bilirubin (0.0-0.5) mg/dL AST (5-37) U/L ALT (0-40) U/L Alkaline Phosphatase (39-117) U/L Troponin I High Sens 37.6 H (<3.5-35.0) ng/L Total Protein (6.5-8.0) g/dL Albumin (3.5-5.0) g/dL Lipase (8-78) U/L Ethyl Alcohol mg/dL Influenza Type A (PCR) (Negative) Influenza Type B (PCR) (Negative) RSV RNA Qual (PCR) (Negative) SARS-CoV-2 RNA (RT-PCR) (Negative) 08/27/22 Range/Units 00:27 WBC (4.8-10.8) X10*3/uL RBC (4.60-5.80) X10*6/uL Hgb (14.0-18.0) g/dl Hct (42.0-52.0) % MCV (80.0-98.0) fL MCH (27.0-33.0) pg MCHC (31.0-36.0) g/dl RDW (11.0-16.0) % Plt Count (160-400) X10*3/uL MPV (9.4-12.4) fL Immature Gran % (Auto) Neut % (Auto) Lymph % (Auto) [place] % (Auto) Eos % (Auto) Baso % (Auto) Lymph # (Auto) [place] # (Auto) Eos # (Auto) Baso # (Auto) Abs Immat Gran (auto) Absolute Neuts (auto) Absolute Nucleated RBC (0.0-0.012) X10*3/uL Nucleated RBC % (auto) (0.0-0.2) /100WBC Neutrophils % (Manual) (45-73) % Band Neutrophils % (3-5) % Lymphocytes % (Manual) (20-40) % Monocytes % (Manual) (2-11) % Eosinophils % (Manual) (0-4) % Abs Neuts (Manual) (2.0-8.3) X10*3/uL Lymphocytes # (Manual) (1.2-4.9) X10*3/uL Monocytes # (Manual) (0.1-1.2) X10*3/uL Eosinophils # (Manual) (0.0-0.4) X10*3/uL Toxic Granulation Dohle Bodies WBC Morphology Comment Platelet Estimate (NORMAL) Large Platelets Plt Morphology Comment RBC Morphology Blackstone Cells /OIF Acanthocytes (Spur) /OIF Sodium (135-145) mmol/L Potassium (3.3-5.1) mmol/L Chloride (96-108) mmol/L Carbon Dioxide (22-29) mmol/L Anion Gap (12-20) BUN (9-16) mg/dL Creatinine (0.5-1.4) mg/dL Estim Creat Clear Calc Estimated GFR Random Glucose (60-115) mg/dL Lactic Acid (0.5-2.0) mmol/L Calcium (8.4-10.2) mg/dL Total Bilirubin 1.4 H (0.0-1.0) mg/dL Direct Bilirubin 0.2 (0.0-0.5) mg/dL AST 39 H (5-37) U/L ALT 22 (0-40) U/L Alkaline Phosphatase 82 (39-117) U/L Troponin I High Sens (<3.5-35.0) ng/L Total Protein 6.4 L (6.5-8.0) g/dL Albumin 3.2 L (3.5-5.0) g/dL Lipase 24 (8-78) U/L Ethyl Alcohol mg/dL Influenza Type A (PCR) (Negative) Influenza Type B (PCR) (Negative) RSV RNA Qual (PCR) (Negative) SARS-CoV-2 RNA (RT-PCR) (Negative) Independent Interpretation I performed an independent interpretation of an: EKG, Plain X-Ray and CT Scan Interpretation: Sinus tachycardia with Premature atrial complexes Inferior infarct (cited on or before 04-NOV-2020) Abnormal ECG When compared with ECG of 30-MAY-2022 17:48, Premature atrial complexes are now Present Vent. rate has increased BY 40 BPM Nonspecific T wave abnormality no longer evident in Anterolateral leads Vent. rate 109 BPM IN interval 166 ms QRS duration 94 ms QT/QTc 350/471 ms P-R-T axes 47 -10 47 27-AUG-2022 00:41:36 Radiology Impression Discussion of test interpretation with radiology: I have reviewed the radiologist's reading. Radiologist Impression: EXAMINATION: XR CHEST CLINICAL INFORMATION: Fever. COMPARISON: 08/08/2022. TECHNIQUE: Frontal view of the chest was obtained. FINDINGS: Low lung volumes and evaluation. Diffuse patchy opacities have mildly increased with asymmetric increased markings in the left lower lung. The heart and mediastinal structures are unremarkable. XR/XR chest 1V IMPRESSION: Interval increase in bilateral patchy infiltrates. These remain nonspecific and could represent an infectious/inflammatory process however, a cardiogenic etiology cannot be excluded. Correlate clinically. ? EXAMINATION: CT CHEST, ABDOMEN AND PELVIS WITHOUT CONTRAST CLINICAL INFORMATION: Bandemia COMPARISON: 03/03/2022 TECHNIQUE: Multidetector volumetric imaging was performed from the thoracic inlet through the pubic symphysis. Sagittal and coronal reformatted images were obtained on the technologist's workstation. Axial MIP volume rendering provided. This CT examination was performed using dose optimization techniques as appropriate, variously including the following: *Automated exposure control *Adjustment of mA and/or kV according to patient size (this includes techniques or standardized protocols for targeted exams where dose is matched to indication/reason for exam; i.e. extremities or head) *Use of iterative reconstruction technique DLP: 826 mGy-cm FINDINGS: CHEST: Lungs: Limited detailed evaluation of the lung parenchyma due to respiratory motion artifact. Underlying chronic lung disease is suspected with subpleural reticulation and fibrosis, better demonstrated on 03/03/2022. Currently there is superimposed consolidation most prominently in the lingula and left lower lobe, and to a lesser degree scattered in the right lung. Mediastinum: The visualized thyroid gland is unremarkable. Interval increase in size of mediastinal lymph nodes compared to prior, which may be reactive. For example, there is a right paratracheal lymph node on image 19/57 measuring 1.5 cm in short axis dimension, versus 1.1 cm previously. Cardiac size is within normal limits; no pericardial effusion. Coronary Artery Calcification: None visualized on this study. Pleura: No pneumothorax or significant pleural effusion. Chest Wall/Axilla: Unremarkable. ABDOMEN/PELVIS: Suboptimal assessment in some regions due to motion artifact. Liver, Gallbladder, Biliary Tree: The liver is normal in size, shape, and attenuation. No focal hepatic lesion or biliary ductal dilatation is identified. Gallbladder appears grossly unremarkable. Pancreas: Unremarkable. Spleen: Unremarkable. Adrenal Glands: Unremarkable. Kidneys and Ureters: The kidneys are normal in size, shape, and attenuation. No hydronephrosis or hydroureter or calculi seen. No perinephric stranding. Bladder: Unremarkable. Gastrointestinal Tract: No evidence of bowel obstruction or significant wall thickening. The appendix is unremarkable. No free fluid or free air is seen. Abdominal Wall: No hernia is demonstrated. Lymphovascular Structures: Lymph nodes: Normal. Vascular: Trace atherosclerotic calcification. Pelvic Viscera: Unremarkable. OSSEOUS STRUCTURES: There is subacute appearing fractures of the anterior left sixth and seventh ribs. Chronic anterolisthesis of L5 on S1. Chronic mild anterior wedge compression deformity of L1. CT/CT chest wo IV con IMPRESSION: 1.? Suboptimal assessment in some regions due to motion artifact. 2.? Underlying chronic lung disease with superimposed consolidation in the lingula and left lower lobe, and to a lesser degree scattered in the right lung, concerning for pneumonia or aspiration in the proper clinical setting. 3.? Interval increase in size of mediastinal lymph nodes compared to 03/03/2022, which may be reactive. 4.? Subacute appearing fractures of the anterior left sixth and seventh ribs. 5.? No acute findings identified in the abdomen or pelvis. ? External Record Review External record reviewed: Inpatient record, Outpatient record and Prior outpatient labs Prescription Management I considered prescription management with: Antibiotic Chronic Conditions Patient?s care impacted by: Other (Alcohol abuse) Social Determinants Patient?s care significantly limited by Social Determinants of Health including: Other Social Determinant of Health Medications Administered Generic Name Dose Route Start Last Admin Trade Name Freq PRN Reason Stop Dose Admin Sodium Chloride 1,000 mls @ 999 mls/hr 08/27/22 00:30 08/27/22 00:49 Ns IVCONT 08/27/22 01:30 999 mls/hr .Q1H1M NOBLE Administration Discontinued Medications Generic Name Dose Route Start Last Admin Trade Name Freq PRN Reason Stop Dose Admin Acetaminophen 650 mg 08/26/22 22:00 08/26/22 22:20 Acetaminophen 325 Mg Tablet PO 08/26/22 22:01 650 mg ONCE ONE Administration Doxycycline Monohydrate 100 mg 08/26/22 23:47 08/27/22 00:14 Doxycycline Monohydrate 100 Mg Capsule PO 08/26/22 23:48 100 mg ONCE ONE Administration Sodium Chloride 1,000 mls @ 999 mls/hr 08/26/22 23:45 08/27/22 00:14 Ns IVCONT 08/27/22 00:45 999 mls/hr .Q1H1M NOBLE Administration Ceftriaxone Sodium 1 gm/ 50 mls @ 100 mls/hr 08/27/22 00:17 08/27/22 00:49 Sodium Chloride IV 08/27/22 00:46 100 mls/hr ONCE ONE Administration Discharge Plan Discharge Clinical Impression: Bandemia, Pneumonia Patient Disposition: Admitted As Inpatient Interventions: Tebbetts-Suicide Risk Severity Scale Last Done: 08/26/22 19:33
--- NOTE | 2022-08-26 19:24 | PC.NURSE ---
Pt resting comfortably on stretcher, no complaints at this time. Blood work complete
[2022-08-26 19:45] LABS: Ethanol < 10 mg/dL
--- NOTE | 2022-08-26 21:23 | MHC.RECOVSUP ---
? Reason for consult:ETOH o? Current location:[facility]? o? Identified substance use concern:? -? Seeking ATS (detox) -? Support ? Intervention: o? ATS bed search started/completed/in process o? Community resources provided ? Plan: o? Follow up tomorrow? ? Additional information: saw mr. Fuller prior to going upstairs to meet with other patients. Mr. Fuller is seeking ATS services, but he needs special care. He isn't accepted to several facilities. I did reach out to [facility]. Please follow up tomorrow.
[2022-08-26 21:26] VITALS: BP 139/74; PULSE 125; RESP 14; TEMP 38.2; O2SAT 92
--- NOTE | 2022-08-26 21:27 | MHC.EDTECH ---
Pt 1x assisted t the bathroom. Pt 1x assisted with changing over and washing up. Pt personal belongings placed in belongings bag. Pt urinal placed bedside
[2022-08-26] MEDS: Acetaminophen 325 MG TABLET 650 MG PO (22:20)
--- NOTE | 2022-08-26 22:22 | PC.NURSE ---
BINTA Hernandez alerted this RN that pts temperature and HR were high. this RN told KADE Gomes. IV now in place, Tylenol given and labs collected
[2022-08-26 22:33] LABS: Anion Gap 15 (12-20); Blood Urea Nitrogen 26 mg/dL (9-16); Calcium 7.7 mg/dL (8.4-10.2); Carbon Dioxide 23 mmol/L (22-29); Chloride 104 mmol/L (96-108); Creatinine Clr Calc Pharmacy 85.6; Estimated Glomerular Filt Rate > 60; Glucose Random 217 mg/dL (60-115); Sodium 138 mmol/L (135-145)
[2022-08-26 22:36] LABS: Hemoglobin 12.4 g/dl (14.0-18.0); PLT CLUMP 1; Red Cell Distribution Width 14.6 % (11.0-16.0)
[2022-08-26 22:38] LABS: Mean Corpuscular HGB Conc 33.5 g/dl (31.0-36.0); Mean Corpuscular Hemoglobin 29.9 pg (27.0-33.0); Mean Corpuscular Volume 89.2 fL (80.0-98.0); Mean Platelet Volume 11.9 fL (9.4-12.4); Red Blood Count 4.15 X10*6/uL (4.60-5.80)
[2022-08-26 22:47] LABS: Platelet Count 112 X10*3/uL (160-400); WBC ABN SCTR FOR CBC 1; White Blood Count 7.7 X10*3/uL (4.8-10.8)
[2022-08-26 23:00] LABS: Influenza A PCR NEGATIVE (Negative); Influenza B PCR NEGATIVE (Negative); Resp Syncy Virus RNA Qual PCR NEGATIVE (Negative); SARS COV2 PCR INHOUSE NEGATIVE (Negative)
[2022-08-26 23:15] LABS: Neutrophils Percent Manual 45 % (45-73)
[2022-08-26 23:18] LABS: Band Neutrophils Percent 23 % (3-5); Eosinophils Absolute Manual 0.1 X10*3/uL (0.0-0.4); Eosinophils Percent Manual 1 % (0-4); Lymphocytes Absolute Manual 0.5 X10*3/uL (1.2-4.9); Lymphocytes Percent Manual 7 % (20-40); Monocytes Absolute Manual 1.8 X10*3/uL (0.1-1.2); Monocytes Percent Manual 24 % (2-11); Neutrophils Absolute Manual 5.2 X10*3/uL (2.0-8.3)
--- NOTE | 2022-08-26 23:18 | MHC.EDTECH ---
Pt made aware that a urine sample is needed. Pt given urinal
[2022-08-26 23:19] LABS: RBC Morphology NOTED
[2022-08-26 23:20] LABS: Acanthocytes 1+ (0-2) /OIF; Burr Cells 2+ (3-5) /OIF; Dohle Bodies PRESENT; Platelet Estimate DECREASED (NORMAL); Toxic Granulation PRESENT; WBC Morphology Comment DYSMORPHIC
[2022-08-26 23:21] LABS: Large Platelet PRESENT; Platelet Morphology Comment NOTED
[2022-08-26 23:37] VITALS: PULSE 100; RESP 19; TEMP 36.9; O2SAT 92
--- NOTE | 2022-08-26 23:53 | ECG_ITS ---
Test Reason : SEPSIS Blood Pressure : / mmHG Vent. Rate : 109 BPM Atrial Rate : 109 BPM P-R Int : 166 ms QRS Dur : 094 ms QT Int : 350 ms P-R-T Axes : 047 -10 047 degrees QTc Int : 471 ms Sinus tachycardia with Premature atrial complexes Inferior infarct (cited on or before 04-NOV-2020) Abnormal ECG When compared with ECG of 30-MAY-2022 17:48, Premature atrial complexes are now Present Vent. rate has increased BY 40 BPM Nonspecific T wave abnormality no longer evident in Anterolateral leads Referred By: Mireya Urbano Electronically Signed By:SUNDAY JARAMILLO MD
[2022-08-27] VITALS (8 sets, daily range): BP systolic 110–143; BP diastolic 79–94; PULSE 88–115; RESP 14–31; TEMP 36.4–37.6; O2SAT 95–97
[2022-08-27] MEDS: Doxycycline Monohydrate 100 MG CAPSULE PO (00:14)
[2022-08-27] MEDS: 0.9 % Sodium Chloride 1,000 ML 999 ML IVCONT ×2 (00:14→00:49)
[2022-08-27 00:45] LABS: Lactic Acid 1.2 mmol/L (0.5-2.0)
[2022-08-27] MEDS: cefTRIAXone sodium 1 GM in 0.9 % Sodium Chloride 50 ML IV (00:49)
[2022-08-27 00:50] LABS: Alanine Aminotransferase 22 U/L (0-40); Albumin Level 3.2 g/dL (3.5-5.0); Alkaline Phosphatase 82 U/L (39-117); Aspartate Amino Transferase 39 U/L (5-37); Bilirubin Direct 0.2 mg/dL (0.0-0.5); Bilirubin Total 1.4 mg/dL (0.0-1.0); Lipase 24 U/L (8-78); Total Protein 6.4 g/dL (6.5-8.0)
[2022-08-27 00:57] LABS: Troponin-I High Sensitivity 37.6 ng/L (<3.5-35.0)
--- NOTE | 2022-08-27 01:12 | P.HPHOSP_ITS ---
History of Present Illness Date of Service: 08/27/22 Chief Complaint: Weakness This is a 52-year-old male with pertinent history of alcohol use disorder who presents to the emergency department for evaluation of weakness. Patient states he is here for generalized weakness and alcohol detox . States he was dri nking all day and his last drink was 09:00. Home as he states because of his drinking he also tripped and fell. Did not hit his head. He says no to all other review of systems. Very minimal interaction and does not want to talk. He is not on any prescription medications In the emergency department, patient was found to be septic and imaging was concerning for pneumonia Review of Systems Constitutional: Constitutional: Reports chills and Reports fever(s) Cardiovascular: Cardiovascular: Reports no additional cardiovascular complaint s and Reports dyspnea Respiratory: Respiratory: Reports cough and Reports dyspnea Gastrointestinal: Gastrointestinal: Reports no additional gastrointestinal complaints Genitourinary: Genitourinary: Reports no additional male genitourinary complaints [facility] Medical History ETOH abuse High cholesterol HTN (hypertension) Social History Alcohol intake: current Alcohol intake frequency: 3 or more drinks per day Alcohol type: beer and hard liquor Patient Tobacco Use Status: Never used Tobacco Smoked in Last 30 Days: Yes Use of substances other than those prescribed or required for medical reasons: No Advance Directives: No Advance Directives Information Provided: Yes Nutrition Risks: No Nutritional Risk service: No Current occupational status: unemployed Meds Allergies Allergy/AdvReac Type Severity Reaction Status Date / Time clams Allergy Severe HIVES, Verified 08/27/22 02:35 DIFFICULTY BREATHING Active Medications: Current Medications Sodium Chloride (Ns) 1,000 mls @ 999 mls/hr IVCONT .Q1H1M NOBLE Stop: 08/27/22 01:30 Last Admin: 08/27/22 00:49 Dose: 999 mls/hr Home Medications Medication Instructions Recorded Confirmed Last Taken Type No Known Home Meds 08/18/22 08/27/22 Unknown History Physical Exam Vital Signs and Narrative: Vital Signs: Last Vital Signs Temp 98.4 F 08/26/22 23:37 Pulse 100 08/26/22 23:37 Resp 19 08/26/22 23:37 BP 139/74 08/26/22 21:26 Pulse Ox 92 08/26/22 23:37 O2 Del Method 08/26/22 23:37 BMI result Body Mass Index 25.8 Results Labs 08/26/22 02:45 08/26/22 22:07 Labs: Laboratory Results - last 24 hr 08/26/22 08/26/22 08/26/22 02:45 19:04 22:06 MCV 89.2 MCH 29.9 MCHC 33.5 RDW 14.6 Plt Count 112 L MPV 11.9 Immature Gran % (Auto) Cancelled Neut % (Auto) Cancelled Lymph % (Auto) Cancelled [place] % (Auto) Cancelled Eos % (Auto) Cancelled Baso % (Auto) Cancelled Lymph # (Auto) Cancelled [place] # (Auto) Cancelled Eos # (Auto) Cancelled Baso # (Auto) Cancelled Abs Immat Gran (auto) Cancelled Absolute Neuts (auto) Cancelled Absolute Nucleated RBC 0.000 Nucleated RBC % (auto) 0.0 Neutrophils % (Manual) 45 Band Neutrophils % 23 H Lymphocytes % (Manual) 7 L Monocytes % (Manual) 24 H Eosinophils % (Manual) 1 Abs Neuts (Manual) 5.2 Lymphocytes # (Manual) 0.5 L Monocytes # (Manual) 1.8 H Eosinophils # (Manual) 0.1 Toxic Granulation PRESENT Dohle Bodies PRESENT WBC Morphology Comment DYSMORPHIC Platelet Estimate DECREASED Large Platelets PRESENT Plt Morphology Comment NOTED RBC Morphology NOTED Zach Cells 2+ (3-5) Acanthocytes (Spur) 1+ (0-2) Anion Gap Estim Creat Clear Calc Estimated GFR Random Glucose Lactic Acid Calcium Total Bilirubin Direct Bilirubin AST ALT Alkaline Phosphatase Troponin I High Sens Total Protein Albumin Lipase Ethyl Alcohol < 10 Influenza Type A (PCR) NEGATIVE Influenza Type B (PCR) NEGATIVE RSV RNA Qual (PCR) NEGATIVE SARS-CoV-2 RNA (RT-PCR) NEGATIVE 08/26/22 08/27/22 08/27/22 22:07 00:26 00:27 MCV MCH MCHC RDW Plt Count MPV Immature Gran % (Auto) Neut % (Auto) Lymph % (Auto) [place] % (Auto) Eos % (Auto) Baso % (Auto) Lymph # (Auto) [place] # (Auto) Eos # (Auto) Baso # (Auto) Abs Immat Gran (auto) Absolute Neuts (auto) Absolute Nucleated RBC Nucleated RBC % (auto) Neutrophils % (Manual) Band Neutrophils % Lymphocytes % (Manual) Monocytes % (Manual) Eosinophils % (Manual) Abs Neuts (Manual) Lymphocytes # (Manual) Monocytes # (Manual) Eosinophils # (Manual) Toxic Granulation Dohle Bodies WBC Morphology Comment Platelet Estimate Large Platelets Plt Morphology Comment RBC Morphology [place] Cells Acanthocytes (Spur) Anion Gap 15 Estim Creat Clear Calc 85.6 Estimated GFR > 60 Random Glucose 217 H Lactic Acid 1.2 Calcium 7.7 L D Total Bilirubin Direct Bilirubin AST ALT Alkaline Phosphatase Troponin I High Sens 37.6 H Total Protein Albumin Lipase Ethyl Alcohol Influenza Type A (PCR) Influenza Type B (PCR) RSV RNA Qual (PCR) SARS-CoV-2 RNA (RT-PCR) 08/27/22 00:27 MCV MCH MCHC RDW Plt Count MPV Immature Gran % (Auto) Neut % (Auto) Lymph % (Auto) [place] % (Auto) Eos % (Auto) Baso % (Auto) Lymph # (Auto) [place] # (Auto) Eos # (Auto) Baso # (Auto) Abs Immat Gran (auto) Absolute Neuts (auto) Absolute Nucleated RBC Nucleated RBC % (auto) Neutrophils % (Manual) Band Neutrophils % Lymphocytes % (Manual) Monocytes % (Manual) Eosinophils % (Manual) Abs Neuts (Manual) Lymphocytes # (Manual) Monocytes # (Manual) Eosinophils # (Manual) Toxic Granulation Dohle Bodies WBC Morphology Comment Platelet Estimate Large Platelets Plt Morphology Comment RBC Morphology [place] Cells Acanthocytes (Spur) Anion Gap Estim Creat Clear Calc Estimated GFR Random Glucose Lactic Acid Calcium Total Bilirubin 1.4 H Direct Bilirubin 0.2 AST 39 H ALT 22 Alkaline Phosphatase 82 Troponin I High Sens Total Protein 6.4 L Albumin 3.2 L Lipase 24 Ethyl Alcohol Influenza Type A (PCR) Influenza Type B (PCR) RSV RNA Qual (PCR) SARS-CoV-2 RNA (RT-PCR) Imaging Radiologist's Impressions: Impressions Chest X-Ray 08/26/22 22:18 IMPRESSION: Interval increase in bilateral patchy infiltrates. These remain nonspecific and could represent an infectious/inflammatory process however, a cardiogenic etiology cannot be excluded. Correlate clinically. Abdomen/Pelvis CT 08/27/22 00:10 IMPRESSION: 1. Suboptimal assessment in some regions due to motion artifact. 2. Underlying chronic lung disease with superimposed consolidation in the lingula and left lower lobe, and to a lesser degree scattered in the right lung, concerning for pneumonia or aspiration in the proper clinical setting. 3. Interval increase in size of mediastinal lymph nodes compared to 03/03/2022, which may be reactive. 4. Subacute appearing fractures of the anterior left sixth and seventh ribs. 5. No acute findings identified in the abdomen or pelvis. Chest CT 08/27/22 00:10 IMPRESSION: 1. Suboptimal assessment in some regions due to motion artifact. 2. Underlying chronic lung disease with superimposed consolidation in the lingula and left lower lobe, and to a lesser degree scattered in the right lung, concerning for pneumonia or aspiration in the proper clinical setting. 3. Interval increase in size of mediastinal lymph nodes compared to 03/03/2022, which may be reactive. 4. Subacute appearing fractures of the anterior left sixth and seventh ribs. 5. No acute findings identified in the abdomen or pelvis. Assessment and Plan (1) Pneumonia: Status: Acute (2) Bandemia: Status: Acute Plan This is a 52-year-old male with pertinent history of alcohol use disorder who presents to the emergency department for evaluation of weakness. #. Sepsis due to pneumonia, concern for aspiration in a patient with alcohol use disorder: Initiating Unasyn. Lactic acid and blood culture obtained. Bandemia noted on blood count #. Alcohol use disorder: Monitor CIWA. Initiating thiamine. CARE team consulted #. Hyperglycemia: Initiating Accu-Cheks with sliding scale insulin. Obtaining A1c #. Elevated troponin, likely due to increased amount. Repeat DVT prophylaxis: Lovenox 40 mg daily Full code Regular diet Admit as inpatient and will require two night minimum hospital stay for IV antibiotics Time Spent With Patient Time: Total time managing care of this patient today ____ minutes. Quality Stroke Does the patient have a stroke diagnosis?: No VTE Prior VTE?: No VTE Risk Level:: Medical - moderate - high VTE Device Contraindication: Treatment Not Indicated VTE Drug Contraindication: N/A - Med Ordered
[2022-08-27] MEDS: Enoxaparin Sodium 40 MG/0.4 ML SYRINGE SUBCUT (02:01)
[2022-08-27] MEDS: Thiamine HCL 100 MG in 0.9 % Sodium Chloride 100 ML 202 MG IV ×2 (02:01→08:18)
--- NOTE | 2022-08-27 02:31 | PC.NURSE ---
pt sleeping at this time, respirations even and unlabored, skin pink, warm and moist to touch. no apparent distress
[2022-08-27 03:53] LABS: Appearance Urine Clear; Color Urine Dark Yellow; Glucose Urine UA Negative (Negative); Leukocyte Esterase Urine Negative (Negative); Nitrite Urine Negative (Negative); Specific Gravity - Urine 1.025 (1.005-1.025); UMIC TRIGGER UACC YES; Urine Blood Negative (Negative); Urine Ketones Trace mg/dL (Negative); Urine Protein 100 (2+) mg/dL (Neg-Trace)
[2022-08-27 03:59] LABS: Bacteria Urine None Seen (None Seen); RBC Urine 0-2 /HPF (0-2); Squamous Epithelial Cell Urine 0-2 /HPF (0-2); WBC Urine 0-5 /HPF (0-5)
--- NOTE | 2022-08-27 06:12 | MHC.EDTECH ---
PT 1x assited with pericare after using the urinal output 400cc
[2022-08-27] MEDS: Ampicillin Sodium/Sulbactam Na 3 GM in 0.9 % Sodium Chloride 100 ML IV ×3 (06:34→17:49)
[2022-08-27 06:36] LABS: Hematocrit 34.3 % (42.0-52.0); Hemoglobin 11.6 g/dl (14.0-18.0); Mean Corpuscular HGB Conc 33.8 g/dl (31.0-36.0); Mean Corpuscular Hemoglobin 30.8 pg (27.0-33.0); Mean Platelet Volume 12.2 fL (9.4-12.4); Platelet Count 100 X10*3/uL (160-400); Red Blood Count 3.77 X10*6/uL (4.60-5.80); Red Cell Distribution Width 14.7 % (11.0-16.0)
[2022-08-27 06:46] LABS: Estimated Average Glucose 103 mg/dL; Hemoglobin A1c % 5.2 %
[2022-08-27 06:47] LABS: WBC ABN SCTR FOR CBC 1
[2022-08-27 06:49] LABS: Anion Gap 12 (12-20); Blood Urea Nitrogen 21 mg/dL (9-16); Calcium 7.1 mg/dL (8.4-10.2); Carbon Dioxide 23 mmol/L (22-29); Chloride 109 mmol/L (96-108); Creatinine Clr Calc Pharmacy 108.3; Estimated Glomerular Filt Rate > 60; Glucose Random 126 mg/dL (60-115); Potassium 3.7 mmol/L (3.3-5.1); Sodium 140 mmol/L (135-145)
[2022-08-27 06:55] LABS: Troponin-I High Sensitivity 32.5 ng/L (<3.5-35.0)
[2022-08-27 07:15] LABS: Band Neutrophils Percent 20 % (3-5); Lymphocytes Percent Manual 9 % (20-40); Monocytes Percent Manual 24 % (2-11); Neutrophils Percent Manual 47 % (45-73)
[2022-08-27 07:18] LABS: Acanthocytes 1+ (0-2) /OIF; RBC Morphology NOTED; Toxic Granulation PRESENT
[2022-08-27 07:19] LABS: Dohle Bodies PRESENT; Large Platelet PRESENT; Platelet Estimate DECREASED (NORMAL); Platelet Morphology Comment NOTED
[2022-08-27 07:21] LABS: Lymphocytes Absolute Manual 0.6 X10*3/uL (1.2-4.9); Monocytes Absolute Manual 1.6 X10*3/uL (0.1-1.2); Neutrophils Absolute Manual 4.4 X10*3/uL (2.0-8.3); White Blood Count 6.5 X10*3/uL (4.8-10.8)
--- NOTE | 2022-08-27 07:22 | PHA.MEDREC ---
Pharmacy Consult ? Medication Reconciliation Pharmacy has reviewed the medication reconciliation completed by Janny. There are no remarkable issues. Patient has no recently claim history or any PDMP activity. Lauren Rodriguez, PharmD
[2022-08-27 07:23] LABS: Glucose, Whole Blood 134 mg/dL (60-115)
[2022-08-27] MEDS: PHENobarbitaL sodium 130 MG/ML IM ONCE 256.1 MG IM (10:55)
[2022-08-27] MEDS: Throat Lozenge, Medicated LOZENGE 1 LOZENGE MUCOUS MEM ×3 (11:05→19:26)
--- NOTE | 2022-08-27 11:38 | HO.PM.IMPN ---
Subjective Subjective Date of Service: 08/27/22 Interval History: Seen in follow up for aspiration pneumonia, acute alcohol withdrawal Interval history: Pt reports consuming 1 pint and about 3 beers daily, last consumed 9am yesterday. No hx w/d seizure. He is noted to be tachycardic and tachypneic. Reports sore thoroat. No headache, neck stiffness, sob, chest pain. Has nonproductive cough Review of Systems Review of Systems: Yes all other systems are reviewed and are negative Physical Exam Vital Signs: Vital Signs: Last Vital Signs Temp 99.6 F 08/27/22 09:24 Pulse 98 08/27/22 09:24 Resp 20 08/27/22 09:24 BP 129/86 08/27/22 09:24 Pulse Ox 95 08/27/22 09:24 O2 Del Method 08/27/22 09:24 O2 Flow Rate 2 08/27/22 09:24 BMI result Body Mass Index 25.8 Constitutional - Awake and Alert, No apparent distress Eyes - PERRLA, EOMI Cardiovascular - S1S2, RRR, No edema Respiratory - Normal lung expansion, Normal respiratory effort, tachypneic, no accessory muscle usage, scattered expiratory wheezes and rhonchi bilaterally Gastrointestinal - NT / ND; +BS; No rebound or guarding - No CVA tenderness Extremities - no calf tenderness bilaterally, no swelling Skin - Warm/Dry. Flushed face Neurological - Alert & oriented x3, CN II-XII in tact, 5/5 strength BUE and BLE Psychological - Appropriate affect Objective Data Active Medications Acetaminophen (Acetaminophen 325 Mg Tablet) 650 mg PO Q6H PRN PRN Reason: Pain, Mild (Pain Scale 1-3) Benzocaine (Throat Lozenge, Medicated Lozenge) 1 lozenge MUCOUS MEM Q2H PRN PRN Reason: Sore Throat Last Admin: 08/27/22 11:05 Dose: 1 lozenge Documented By: CLARISSA Dextrose (Dextrose 50 % 25 Gm/50 Ml Syringe) 25 gm IVPUSH Q15M PRN; Protocol PRN Reason: per Hypoglycemia Standing Ord. Enoxaparin Sodium (Enoxaparin Sodium 40 Mg/0.4 Ml Syringe) 40 mg SUBCUT Q24H NOBLE Last Admin: 08/27/22 02:01 Dose: 40 mg Documented By: CINTHIA Glucose (Glucose Gel 15 Gm Gel..Gram.) 15 gm PO Q15M PRN; Protocol PRN Reason: per Hypoglycemia Standing Ord. Ampicillin Sodium/Sulbactam (Sodium 3 gm/ Sodium Chloride) 100 mls @ 200 mls/hr IV Q6H [facility] Last Infusion: 08/27/22 07:11 Dose: 0 mls/hr Documented By: VANCE Thiamine HCl 100 mg/ Sodium (Chloride) 101 mls @ 202 mls/hr IV DAILY [facility] Last Infusion: 08/27/22 08:54 Dose: 0 mls/hr Documented By: VANCE Insulin Human Lispro (Insulin Lispro 100 Unit/Ml 3 Ml Vial) 0 unit SUBCUT QIDACHS [facility]; Protocol Last Admin: 08/27/22 07:03 Dose: Not Given Documented By: VANCE Non-Admin Reason: No Insulin Coverage Melatonin (Melatonin 3 Mg Tablet) 6 mg PO BEDTIME PRN PRN Reason: Insomnia Ondansetron HCl (Ondansetron Hcl 4 Mg/2 Ml Vial) 4 mg IVPUSH Q8H PRN PRN Reason: Nausea and Vomiting Pharmacy Consult (Consult Rx Perform Med Rec) 1 each MISCELLANE ONCE PRN PRN Reason: Consult order Pharmacy Consult (Consult Rx Etoh Phenob Im/Po) 1 each MISCELLANE ONCE PRN; Protocol PRN Reason: Consult order Phenobarbital (Phenobarbital 15 Mg Tablet) 45 mg PO BID [facility]; Protocol Stop: 08/29/22 09:01 Phenobarbital (Phenobarbital 15 Mg Tablet) 15 mg PO BID NOBLE; Protocol Stop: 08/31/22 09:01 Phenobarbital (Phenobarbital 15 Mg Tablet) 15 mg PO DAILY [facility]; Protocol Stop: 09/02/22 09:01 Phenobarbital Sodium (Phenobarbital Sodium 130 Mg/Ml Vial Im Q3hx2) 191.1 mg IM Q3H NO[facility]; Protocol Stop: 08/27/22 16:01 Sodium Chloride (0.9 % Sodium Chloride Flush 3 Ml Syringe) 3 ml IVFLUSH QSHIFT [facility] Last Admin: 08/27/22 07:02 Dose: Not Given Documented By: VANCE Non-Admin Reason: Med Not Available Labs 08/27/22 05:56 08/27/22 05:56 Labs: Laboratory Results - last 24 hr 08/26/22 08/26/22 08/26/22 02:45 19:04 22:06 MCV 89.2 MCH 29.9 MCHC 33.5 RDW 14.6 Plt Count 112 L MPV 11.9 Immature Gran % (Auto) Cancelled Neut % (Auto) Cancelled Lymph % (Auto) Cancelled [place] % (Auto) Cancelled Eos % (Auto) Cancelled Baso % (Auto) Cancelled Lymph # (Auto) Cancelled [place] # (Auto) Cancelled Eos # (Auto) Cancelled Baso # (Auto) Cancelled Abs Immat Gran (auto) Cancelled Absolute Neuts (auto) Cancelled Absolute Nucleated RBC 0.000 Nucleated RBC % (auto) 0.0 Neutrophils % (Manual) 45 Band Neutrophils % 23 H Lymphocytes % (Manual) 7 L Monocytes % (Manual) 24 H Eosinophils % (Manual) 1 Abs Neuts (Manual) 5.2 Lymphocytes # (Manual) 0.5 L Monocytes # (Manual) 1.8 H Eosinophils # (Manual) 0.1 Toxic Granulation PRESENT Dohle Bodies PRESENT WBC Morphology Comment DYSMORPHIC Platelet Estimate DECREASED Large Platelets PRESENT Plt Morphology Comment NOTED RBC Morphology NOTED [place] Cells 2+ (3-5) Acanthocytes (Spur) 1+ (0-2) Anion Gap Estim Creat Clear Calc Estimated GFR POC Glucose Random Glucose Estimat Average Glucose Hemoglobin A1c % Lactic Acid Calcium Total Bilirubin Direct Bilirubin AST ALT Alkaline Phosphatase Troponin I High Sens Total Protein Albumin Lipase Urine Color Urine Appearance Urine pH Ur Specific [place] Urine Protein Urine Glucose (UA) Urine Ketones Urine Blood Urine Nitrite Ur Leukocyte Esterase Urine RBC Urine WBC Ur Squamous Epith Cells Urine Bacteria Hyaline Casts Ethyl Alcohol < 10 Influenza Type A (PCR) NEGATIVE Influenza Type B (PCR) NEGATIVE RSV RNA Qual (PCR) NEGATIVE SARS-CoV-2 RNA (RT-PCR) NEGATIVE 08/26/22 08/27/22 08/27/22 22:07 00:26 00:27 MCV MCH MCHC RDW Plt Count MPV Immature Gran % (Auto) Neut % (Auto) Lymph % (Auto) [place] % (Auto) Eos % (Auto) Baso % (Auto) Lymph # (Auto) [place] # (Auto) Eos # (Auto) Baso # (Auto) Abs Immat Gran (auto) Absolute Neuts (auto) Absolute Nucleated RBC Nucleated RBC % (auto) Neutrophils % (Manual) Band Neutrophils % Lymphocytes % (Manual) Monocytes % (Manual) Eosinophils % (Manual) Abs Neuts (Manual) Lymphocytes # (Manual) Monocytes # (Manual) Eosinophils # (Manual) Toxic Granulation Dohle Bodies WBC Morphology Comment Platelet Estimate Large Platelets Plt Morphology Comment RBC Morphology [place] Cells Acanthocytes (Spur) Anion Gap 15 Estim Creat Clear Calc 85.6 Estimated GFR > 60 POC Glucose Random Glucose 217 H Estimat Average Glucose Hemoglobin A1c % Lactic Acid 1.2 Calcium 7.7 L D Total Bilirubin Direct Bilirubin AST ALT Alkaline Phosphatase Troponin I High Sens 37.6 H Total Protein Albumin Lipase Urine Color Urine Appearance Urine pH Ur Specific [place] Urine Protein Urine Glucose (UA) Urine Ketones Urine Blood Urine Nitrite Ur Leukocyte Esterase Urine RBC Urine WBC Ur Squamous Epith Cells Urine Bacteria Hyaline Casts Ethyl Alcohol Influenza Type A (PCR) Influenza Type B (PCR) RSV RNA Qual (PCR) SARS-CoV-2 RNA (RT-PCR) 08/27/22 08/27/22 08/27/22 00:27 03:45 05:56 MCV 91.0 MCH 30.8 MCHC 33.8 RDW 14.7 Plt Count 100 L MPV 12.2 Immature Gran % (Auto) Cancelled Neut % (Auto) Cancelled Lymph % (Auto) Cancelled [place] % (Auto) Cancelled Eos % (Auto) Cancelled Baso % (Auto) Cancelled Lymph # (Auto) Cancelled [place] # (Auto) Cancelled Eos # (Auto) Cancelled Baso # (Auto) Cancelled Abs Immat Gran (auto) Cancelled Absolute Neuts (auto) Cancelled Absolute Nucleated RBC 0.000 Nucleated RBC % (auto) 0.0 Neutrophils % (Manual) 47 Band Neutrophils % 20 H Lymphocytes % (Manual) 9 L Monocytes % (Manual) 24 H Eosinophils % (Manual) Abs Neuts (Manual) 4.4 Lymphocytes # (Manual) 0.6 L Monocytes # (Manual) 1.6 H Eosinophils # (Manual) Toxic Granulation PRESENT Dohle Bodies PRESENT WBC Morphology Comment Platelet Estimate DECREASED Large Platelets PRESENT Plt Morphology Comment NOTED RBC Morphology NOTED [place] Cells Acanthocytes (Spur) 1+ (0-2) Anion Gap Estim Creat Clear Calc Estimated GFR POC Glucose Random Glucose Estimat Average Glucose Hemoglobin A1c % Lactic Acid Calcium Total Bilirubin 1.4 H Direct Bilirubin 0.2 AST 39 H ALT 22 Alkaline Phosphatase 82 Troponin I High Sens Total Protein 6.4 L Albumin 3.2 L Lipase 24 Urine Color Dark Yellow Urine Appearance Clear Urine pH 6.0 Ur Specific [place] 1.025 Urine Protein 100 (2+) H Urine Glucose (UA) Negative Urine Ketones Trace Urine Blood Negative Urine Nitrite Negative Ur Leukocyte Esterase Negative Urine RBC 0-2 Urine WBC 0-5 Ur Squamous Epith Cells 0-2 Urine Bacteria None Seen Hyaline Casts 3-5 Ethyl Alcohol Influenza Type A (PCR) Influenza Type B (PCR) RSV RNA Qual (PCR) SARS-CoV-2 RNA (RT-PCR) 08/27/22 08/27/22 08/27/22 05:56 05:56 05:56 MCV MCH MCHC RDW Plt Count MPV Immature Gran % (Auto) Neut % (Auto) Lymph % (Auto) [place] % (Auto) Eos % (Auto) Baso % (Auto) Lymph # (Auto) [place] # (Auto) Eos # (Auto) Baso # (Auto) Abs Immat Gran (auto) Absolute Neuts (auto) Absolute Nucleated RBC Nucleated RBC % (auto) Neutrophils % (Manual) Band Neutrophils % Lymphocytes % (Manual) Monocytes % (Manual) Eosinophils % (Manual) Abs Neuts (Manual) Lymphocytes # (Manual) Monocytes # (Manual) Eosinophils # (Manual) Toxic Granulation Dohle Bodies WBC Morphology Comment Platelet Estimate Large Platelets Plt Morphology Comment RBC Morphology [place] Cells Acanthocytes (Spur) Anion Gap 12 Estim Creat Clear Calc 108.3 Estimated GFR > 60 POC Glucose Random Glucose 126 H Estimat Average Glucose 103 Hemoglobin A1c % 5.2 Lactic Acid Calcium 7.1 L D Total Bilirubin Direct Bilirubin AST ALT Alkaline Phosphatase Troponin I High Sens 32.5 Total Protein Albumin Lipase Urine Color Urine Appearance Urine pH Ur Specific [place] Urine Protein Urine Glucose (UA) Urine Ketones Urine Blood Urine Nitrite Ur Leukocyte Esterase Urine RBC Urine WBC Ur Squamous Epith Cells Urine Bacteria Hyaline Casts Ethyl Alcohol Influenza Type A (PCR) Influenza Type B (PCR) RSV RNA Qual (PCR) SARS-CoV-2 RNA (RT-PCR) 08/27/22 07:19 MCV MCH MCHC RDW Plt Count MPV Immature Gran % (Auto) Neut % (Auto) Lymph % (Auto) [place] % (Auto) Eos % (Auto) Baso % (Auto) Lymph # (Auto) [place] # (Auto) Eos # (Auto) Baso # (Auto) Abs Immat Gran (auto) Absolute Neuts (auto) Absolute Nucleated RBC Nucleated RBC % (auto) Neutrophils % (Manual) Band Neutrophils % Lymphocytes % (Manual) Monocytes % (Manual) Eosinophils % (Manual) Abs Neuts (Manual) Lymphocytes # (Manual) Monocytes # (Manual) Eosinophils # (Manual) Toxic Granulation Dohle Bodies WBC Morphology Comment Platelet Estimate Large Platelets Plt Morphology Comment RBC Morphology Zach Cells Acanthocytes (Spur) Anion Gap Estim Creat Clear Calc Estimated GFR POC Glucose 134 H Random Glucose Estimat Average Glucose Hemoglobin A1c % Lactic Acid Calcium Total Bilirubin Direct Bilirubin AST ALT Alkaline Phosphatase Troponin I High Sens Total Protein Albumin Lipase Urine Color Urine Appearance Urine pH Ur Specific [place] Urine Protein Urine Glucose (UA) Urine Ketones Urine Blood Urine Nitrite Ur Leukocyte Esterase Urine RBC Urine WBC Ur Squamous Epith Cells Urine Bacteria Hyaline Casts Ethyl Alcohol Influenza Type A (PCR) Influenza Type B (PCR) RSV RNA Qual (PCR) SARS-CoV-2 RNA (RT-PCR) Assessment and Plan (1) Bandemia: Status: Acute (2) Pneumonia: Status: Acute Plan This is a 52-year-old male with pertinent history of alcohol use disorder admitted for aspiration pneumonia with sepsis and alcohol withdrawal #Sepsis due to pneumonia -concern for aspiration in a patient with alcohol use disorder -Continue Unasyn (initiated 08/26) -Bandemia minimally improved -No end organ damage- no severe sepsis -follow cbc #Alcohol use disorder -Monitor CIWA -Tachycardia and tachypnea may also be related to acute w/d. Initiate phenobarb per protocol -Contineu IV thiamine x 3 days, then PO. Initiate folic acid 1mg daily -Addiction med consult #Hyperglycemia -Initiating Accu-Cheks with sliding scale insulin -A1c 5.2%, no diabetes #Elevated troponin- repeat flat DVT prophylaxis: Lovenox 40 mg daily Full code Regular diet pt requires ongoing inpt hospital stay for IV antibiotics, on phenobarb per protocol for etoh withdrawal Time Spent With Patient Time: Total time managing care of this patient today ____ minutes. Quality Stroke Does the patient have a stroke diagnosis?: No VTE Prior VTE?: No VTE Risk Level:: Medical - moderate - high VTE Device Contraindication: Treatment Not Indicated VTE Drug Contraindication: N/A - Med Ordered
[2022-08-27 11:55] LABS: Glucose, Whole Blood 113 mg/dL (60-115)
[2022-08-27] MEDS: Folic Acid 1 MG TABLET PO (12:17)
[2022-08-27] MEDS: PHENobarbitaL sodium 130 MG/ML VIAL IM Q3Hx2 191.1 MG IM ×2 (13:37→16:24)
[2022-08-27 13:39] LABS: IDNOW Serial# 6674DD1D; Strep A Nucleic Acid Negative (Negative)
--- NOTE | 2022-08-27 13:40 | MHC.CM.PN ---
cCM MET WITH PT AT BEDSIDE. ALERT BUT SLOW TO RESPOND AT X'S. LIVES ALONE IN AN APT. USES WHEELED [employer]ALK[employer] FOR MOBILITY. NO SERVICES PRIOR. NO HCP, DECLINES, HAS NO ONE TO NAME. + COVID VAX X2. NO PCP, [facility] PROVIDED. DP: HOME, NO SERVICES. WILL NEED RIDE HOME, C SHUTTLE. CM WILL CONTINUE TO FOLLOW
--- NOTE | 2022-08-27 14:26 | MHC.RECOVRN ---
Addendum entered by Bette Montesinos 08/27/22 15:05: CM aware pt will be unable to be placed into residential [facility] treatment. Original Note: Chart reviewed. Pt familiar with t/w from previous consultations. Pt continues to be declined from ATS due to inability to complete ADLs and requiring a higher level of care. Pt will also not be a candidate for CSS due to same. Will continue to follow.
[2022-08-27 16:33] LABS: Glucose, Whole Blood 132 mg/dL (60-115)
[2022-08-27] MEDS: 0.9 % Sodium Chloride Flush 3 ML SYRINGE IVFLUSH (17:50)
--- NOTE | 2022-08-27 18:07 | PC.RT ---
RT called to assess patient. Pt is awake and coop, answering appropriately. Pt was noted to have some inc in work of breathing with rr 26 at this time. Spo2 on 2 lpm n/c 95%, hr 106. Pt LS coarse bilat crackles posteriorly, ls are dim anteriorly. Pt was raised to 45 degrees in bed , noting some relief. PA and RN were notified.
[2022-08-27] MEDS: Acetaminophen 325 MG TABLET 650 MG PO (18:45)
[2022-08-27] MEDS: PHENobarbitaL 15 MG TABLET 45 MG PO (19:26)
[2022-08-27 20:24] LABS: Glucose, Whole Blood 132 mg/dL (60-115)
[2022-08-28] MEDS: 0.9 % Sodium Chloride Flush 3 ML SYRINGE IVFLUSH ×4 (00:11→21:30)
[2022-08-28] MEDS: Enoxaparin Sodium 40 MG/0.4 ML SYRINGE SUBCUT (00:11)
[2022-08-28] MEDS: guaiFENesin 200 MG/10 ML 10 ML LIQUID PO ×4 (00:11→21:29)
[2022-08-28] MEDS: Melatonin 3 MG TABLET 6 MG PO (00:12)
[2022-08-28] MEDS: Ampicillin Sodium/Sulbactam Na 3 GM in 0.9 % Sodium Chloride 100 ML IV ×4 (00:15→17:34)
[2022-08-28] MEDS: Throat Lozenge, Medicated LOZENGE 1 LOZENGE MUCOUS MEM ×5 (00:51→21:29)
[2022-08-28 04:00] VITALS: BP 133/80; PULSE 95; RESP 18; TEMP 37.5; O2SAT 98
[2022-08-28 07:37] VITALS: BP 138/80; PULSE 97; RESP 20; TEMP 37.2; O2SAT 98
[2022-08-28 07:45] LABS: Glucose, Whole Blood 93 mg/dL (60-115)
[2022-08-28 07:50] LABS: Basophils Percent Auto 0.5 % (0-2); Eosinophils Absolute Auto 0.1 X10*3/uL (0.0-0.4); Eosinophils Percent Auto 1.4 % (0-4); Hematocrit 33.4 % (42.0-52.0); Imm Gran Abs Auto 0.04 X10*3/uL (0.00-0.03); Imm Gran Pct Auto 0.7 % (0.0-0.4); Lymphocytes Absolute Auto 0.5 X10*3/uL (1.2-4.9); Lymphocytes Percent Auto 9.2 % (20-40); MANUAL DIFF FLAG SCAN; Mean Corpuscular HGB Conc 32.9 g/dl (31.0-36.0); Mean Corpuscular Hemoglobin 30.2 pg (27.0-33.0); Mean Corpuscular Volume 91.8 fL (80.0-98.0); Mean Platelet Volume 11.7 fL (9.4-12.4); Monocytes Absolute Auto 1.4 X10*3/uL (0.1-1.2); Monocytes Percent Auto 24.4 % (2-11); Neutrophils Absolute Auto 3.6 x10*3/uL (2.0-8.3); Neutrophils Percent Auto 63.8 % (45-73); Platelet Count 108 X10*3/uL (160-400); Red Blood Count 3.64 X10*6/uL (4.60-5.80); SCAN SMEAR FLAG 1; White Blood Count 5.6 X10*3/uL (4.8-10.8)
[2022-08-28 08:01] LABS: Anion Gap 13 (12-20); Blood Urea Nitrogen 16 mg/dL (9-16); Calcium 7.3 mg/dL (8.4-10.2); Carbon Dioxide 24 mmol/L (22-29); Chloride 107 mmol/L (96-108); Creatinine Clr Calc Pharmacy 134.4; Estimated Glomerular Filt Rate > 60; Glucose Random 96 mg/dL (60-115); Potassium 3.5 mmol/L (3.3-5.1); Sodium 140 mmol/L (135-145)
[2022-08-28 08:07] LABS: B Type Natriuretic Peptide 538 pg/mL (<100)
[2022-08-28 08:21] LABS: SLIDE REVIEW VERIFIED
[2022-08-28] MEDS: PHENobarbitaL 15 MG TABLET 45 MG PO ×2 (08:38→21:28)
[2022-08-28] MEDS: Folic Acid 1 MG TABLET PO (08:39)
[2022-08-28] MEDS: Thiamine HCL 100 MG in 0.9 % Sodium Chloride 100 ML 202 MG IV (10:41)
[2022-08-28 11:21] LABS: Glucose, Whole Blood 118 mg/dL (60-115)
[2022-08-28 11:44] VITALS: BP 143/88; PULSE 97; RESP 20; TEMP 36.9; O2SAT 96
[2022-08-28] MEDS: methylPREDNISolone Sod Succ 40 MG/ML VIAL IVPUSH (12:20)
--- NOTE | 2022-08-28 13:52 | MHC.RECOVRN ---
Met with pt in 477 to discuss alcohol use and provide support. Pt reports drinking a couple beers and a pint of vodka daily. Pt reports [employer] having presented to [facility] to obtain ATS bed, MV declined pt for needing higher level of care and directed pt to [facility]. Pt aware facilities are unable to accept him due to same. Discussed outpatient supports and plans for dc. Pt plans to return to same living situation with friend. Pt reports having a learning coach who he is in contact with. Pt plans to set up social security with hopes of securing his own apartment. Pt provided with written resources along with t/w contact information. Encouraged to reach out if needed. Denies questions or concerns at this time. Gloria Mckinnon APRN, aware.
--- NOTE | 2022-08-28 15:07 | P.PNIM_ITS ---
Subjective Subjective Date of Service: 08/28/22 Interval History: Seen in follow up for aspiration pneumonia, acute alcohol withdrawal Interval history: Still reporting sore throat and cough, strep A negative. sob improving Review of Systems Review of Systems: Yes all other systems are reviewed and are negative Physical Exam Vital Signs: Vital Signs: Last Vital Signs Temp 98.4 F 08/28/22 11:44 Pulse 97 08/28/22 11:44 Resp 20 08/28/22 11:44 BP 143/88 H 08/28/22 11:44 Pulse Ox 96 08/28/22 11:44 O2 Del Method 08/28/22 11:44 O2 Flow Rate 2 08/28/22 11:44 BMI result Body Mass Index 25.8 Constitutional - Awake and Alert, No apparent distress Eyes - PERRLA, EOMI Throat- No erythema/exudates Neck: NO ervical adenopathy Cardiovascular - S1S2, RRR, No edema Respiratory - Normal lung expansion, Normal respiratory effort, No respiratory distress, CTA bilaterally Gastrointestinal - NT / ND; +BS; No rebound or guarding Extremities - no calf tenderness bilaterally, no swelling Skin - Warm/Dry Neurological - Alert & oriented x3, CN II-XII in tact, 5/5 strength BUE and BLE Psychological - Appropriate affect Objective Data Active Medications Acetaminophen (Acetaminophen 325 Mg Tablet) 650 mg PO Q6H PRN PRN Reason: Pain, Mild (Pain Scale 1-3) Last Admin: 08/27/22 18:45 Dose: 650 mg Documented By: CLARISSA Albuterol Sulfate (Albuterol Sulfate (0.083%) 2.5 Mg/3 Ml Vial.Neb) 2.5 mg INHALE Q4H PRN PRN Reason: Shortness of Breath/Wheezing Benzocaine (Throat Lozenge, Medicated Lozenge) 1 lozenge MUCOUS MEM Q2H PRN PRN Reason: Sore Throat Last Admin: 08/28/22 08:39 Dose: 1 lozenge Documented By: CLARISSA Dextrose (Dextrose 50 % 25 Gm/50 Ml Syringe) 25 gm IVPUSH Q15M PRN; Protocol PRN Reason: per Hypoglycemia Standing Ord. Enoxaparin Sodium (Enoxaparin Sodium 40 Mg/0.4 Ml Syringe) 40 mg SUBCUT Q24H [facility] Last Admin: 08/28/22 00:11 Dose: 40 mg Documented By: STACEY Folic Acid (Folic Acid 1 Mg Tablet) 1 mg PO DAILY [facility] Last Admin: 08/28/22 08:39 Dose: 1 mg Documented By: CLARISSA Glucose (Glucose Gel 15 Gm Gel..Gram.) 15 gm PO Q15M PRN; Protocol PRN Reason: per Hypoglycemia Standing Ord. Guaifenesin (Guaifenesin 200 Mg/10 Ml 10 Ml Liquid) 10 ml PO Q4H PRN PRN Reason: Cough Last Admin: 08/28/22 10:42 Dose: 10 ml Documented By: CLARISSA Ampicillin Sodium/Sulbactam (Sodium 3 gm/ Sodium Chloride) 100 mls @ 200 mls/hr IV Q6H [facility] Last Infusion: 08/28/22 13:13 Dose: 0 mls/hr Documented By: CLARISSA Thiamine HCl 100 mg/ Sodium (Chloride) 101 mls @ 202 mls/hr IV DAILY [facility] Last Infusion: 08/28/22 11:15 Dose: 0 mls/hr Documented By: CLARISSA Insulin Human Lispro (Insulin Lispro 100 Unit/Ml 3 Ml Vial) 0 unit SUBCUT QIDACHS [facility]; Protocol Last Admin: 08/28/22 11:23 Dose: Not Given Documented By: CLARISSA Non-Admin Reason: No Insulin Coverage Melatonin (Melatonin 3 Mg Tablet) 6 mg PO BEDTIME PRN PRN Reason: Insomnia Last Admin: 08/28/22 00:12 Dose: 6 mg Documented By: STACEY Methylprednisolone Sodium Succinate (Methylprednisolone Sod Succ 40 Mg/Ml Vial) 40 mg IVPUSH Q12H [facility] Last Admin: 08/28/22 12:20 Dose: 40 mg Documented By: CLARISSA Ondansetron HCl (Ondansetron Hcl 4 Mg/2 Ml Vial) 4 mg IVPUSH Q8H PRN PRN Reason: Nausea and Vomiting Pharmacy Consult (Consult Rx Perform Med Rec) 1 each MISCELLANE ONCE PRN PRN Reason: Consult order Pharmacy Consult (Consult Rx Etoh Phenob Im/Po) 1 each MISCELLANE ONCE PRN; Protocol PRN Reason: Consult order Phenobarbital (Phenobarbital 15 Mg Tablet) 45 mg PO BID [facility]; Protocol Stop: 08/29/22 09:01 Last Admin: 08/28/22 08:38 Dose: 45 mg Documented By: CLARISSA Phenobarbital (Phenobarbital 15 Mg Tablet) 15 mg PO BID [facility]; Protocol Stop: 08/31/22 09:01 Phenobarbital (Phenobarbital 15 Mg Tablet) 15 mg PO DAILY [facility]; Protocol Stop: 09/02/22 09:01 Sodium Chloride (0.9 % Sodium Chloride Flush 3 Ml Syringe) 3 ml IVFLUSH QSHIFT [facility] Last Admin: 08/28/22 08:39 Dose: 3 ml Documented By: CLARISSA Labs 08/28/22 07:05 08/28/22 07:05 Labs: Laboratory Results - last 24 hr 08/27/22 08/27/22 08/28/22 16:26 20:12 07:05 MCV 91.8 MCH 30.2 MCHC 32.9 RDW 15.0 Plt Count 108 L MPV 11.7 Immature Gran % (Auto) 0.7 H Neut % (Auto) 63.8 Lymph % (Auto) 9.2 L Robeson % (Auto) 24.4 H Eos % (Auto) 1.4 Baso % (Auto) 0.5 Lymph # (Auto) 0.5 L Robeson # (Auto) 1.4 H Eos # (Auto) 0.1 Baso # (Auto) 0.0 Abs Immat Gran (auto) 0.04 H Absolute Neuts (auto) 3.6 Absolute Nucleated RBC 0.000 Nucleated RBC % (auto) 0.0 Smear Tech's Comments VERIFIED Anion Gap Estim Creat Clear Calc Estimated GFR POC Glucose 132 H 132 H Random Glucose Calcium B-Natriuretic Peptide 08/28/22 08/28/22 08/28/22 07:05 07:05 07:36 MCV MCH MCHC RDW Plt Count MPV Immature Gran % (Auto) Neut % (Auto) Lymph % (Auto) Robeson % (Auto) Eos % (Auto) Baso % (Auto) Lymph # (Auto) Robeson # (Auto) Eos # (Auto) Baso # (Auto) Abs Immat Gran (auto) Absolute Neuts (auto) Absolute Nucleated RBC Nucleated RBC % (auto) Smear Tech's Comments Anion Gap 13 Estim Creat Clear Calc 134.4 Estimated GFR > 60 POC Glucose 93 Random Glucose 96 Calcium 7.3 L B-Natriuretic Peptide 538 H 08/28/22 11:14 MCV MCH MCHC RDW Plt Count MPV Immature Gran % (Auto) Neut % (Auto) Lymph % (Auto) Robeson % (Auto) Eos % (Auto) Baso % (Auto) Lymph # (Auto) Robeson # (Auto) Eos # (Auto) Baso # (Auto) Abs Immat Gran (auto) Absolute Neuts (auto) Absolute Nucleated RBC Nucleated RBC % (auto) Smear Tech's Comments Anion Gap Estim Creat Clear Calc Estimated GFR POC Glucose 118 H Random Glucose Calcium B-Natriuretic Peptide Microbiology Microbiology Results: Microbiology 08/27/22 00:27 Blood Culture - Preliminary Blood - Venous No growth after 24 hours. 08/27/22 00:27 Blood Culture - Preliminary Blood - Venous No growth after 24 hours. Assessment and Plan (1) Bandemia: Status: Acute (2) Pneumonia: Status: Acute Plan This is a 52-year-old male with pertinent history of alcohol use disorder admitted for aspiration pneumonia with sepsis and alcohol withdrawal #Sepsis due to pneumonia -concern for aspiration in a patient with alcohol use disorder -Continue Unasyn (initiated 08/26) -Bandemia resolved -No end organ damage- no severe sepsis -follow cbc #Alcohol use disorder -Monitor CIWA -Tachycardia and tachypnea may also be related to acute w/d. Initiate phenobarb per protocol -Contineu IV thiamine x 3 days, then PO. Initiate folic acid 1mg daily -Addiction med consult #Hyperglycemia -Initiating Accu-Cheks with sliding scale insulin -A1c 5.2%, no diabetes #Elevated BNP- likely realted to inflammation/sepsis -low suspicion for CHF, hold on diuresis -check echo #Elevated troponin- repeat flat DVT prophylaxis: Lovenox 40 mg daily Full code Regular diet pt requires ongoing inpt hospital stay for IV antibiotics, on phenobarb per protocol for etoh withdrawal Time Spent With Patient Time: Total time managing care of this patient today ____ minutes. Quality Stroke Does the patient have a stroke diagnosis?: No VTE Prior VTE?: No VTE Risk Level:: Medical - moderate - high VTE Device Contraindication: Treatment Not Indicated VTE Drug Contraindication: N/A - Med Ordered
[2022-08-28 15:24] VITALS: BP 150/103; PULSE 99; RESP 18; TEMP 36.9; O2SAT 94
[2022-08-28 17:01] LABS: Glucose, Whole Blood 191 mg/dL (60-115)
[2022-08-28] MEDS: Insulin Lispro 100 UNIT/ML 3 ML VIAL SUBCUT ×2 (17:33→21:29)
[2022-08-28 20:00] VITALS: BP 160/102; PULSE 97; RESP 20; TEMP 37.2; O2SAT 97
[2022-08-28 21:01] LABS: Glucose, Whole Blood 162 mg/dL (60-115)
[2022-08-29] VITALS (8 sets, daily range): BP systolic 138–159; BP diastolic 81–112; PULSE 70–93; RESP 18–20; TEMP 36.4–37.1; O2SAT 94–98
[2022-08-29] MEDS: methylPREDNISolone Sod Succ 40 MG/ML VIAL IVPUSH ×2 (00:58→11:16)
[2022-08-29] MEDS: Ampicillin Sodium/Sulbactam Na 3 GM in 0.9 % Sodium Chloride 100 ML IV ×4 (00:58→16:42)
[2022-08-29] MEDS: Throat Lozenge, Medicated LOZENGE 1 LOZENGE MUCOUS MEM ×3 (00:59→21:23)
[2022-08-29] MEDS: Enoxaparin Sodium 40 MG/0.4 ML SYRINGE SUBCUT (01:02)
--- NOTE | 2022-08-29 07:00 | CA_ITS ---
Transthoracic Echocardiogram Patient (Last, First, Middle): Fernando Fuller, Gender: Male Date of : 1970 Age: 52 Procedure Date: 08/29/2022 Procedure Type: Transthoracic [place] [facility] [place]: 167. cm Weight: 72.58 kg BSA: 1.81 m2 Heart Rate: 86 bpm BP: 155 / 90 mmHg Administrative Asst: NHI Referring MD: Hanh CAMPOS Symptoms: ?CHF Study Quality: Adequate ECG Rhythm: Sinus Conclusions: - The left ventricular systolic function is normal. The visually estimated ejection fraction is between 55-60%. - There is moderately increased left ventricular wall thickness. - No obvious valvular pathology seen on this study. - The inferior vena cava is mildly dilated and collapses less than 50% with inspiration. Findings Left Ventricle Normal left ventricular cavity size. There is moderately increased left ventricular wall thickness. The left ventricular systolic function is normal. The visually estimated ejection fraction is between 55-60%. There is no evidence of regional wall motion abnormalities. Diastolic function is normal for age. Right Ventricle Mildly increased right ventricular cavity size. There is normal right ventricular systolic function. Atria Both atria are normal in size. Aortic Valve There is a normal trileaflet aortic valve. There is no aortic valve stenosis. There is no aortic valve regurgitation. Mitral Valve There is mild anterior mitral leaflet thickening. There is mild mitral annular calcification. There is no mitral valve regurgitation. There is no mitral valve stenosis. Pulmonic Valve There is trace pulmonic valve regurgitation. Tricuspid Valve There is trace tricuspid valve regurgitation. Borderline RVSP. Great Vessels The asc aorta is normal in size. Venous The inferior vena cava is mildly dilated and collapses less than 50% with inspiration. Pericardium/Pleural There is no evidence of pericardial effusion. Prior Study Comparison No prior study available for comparison. Recommendations, Care & Conclusions No obvious valvular pathology seen on this study. Measurements 2D Linear Measurements IVSd: 1.25 0.6-0.9/0.6-1.0 cm LVIDd: 4.63 3.9-5.3/4.2-5.9 cm LVIDd Index: 2.56 2.4-3.2/2.2-3.1 cm/m2 LVIDs: 3.43 2.0-3.6 cm LVPWd: 1.24 0.7-1.1 cm LA Diam: 4.00 2.7-3.8/3.0-4.0 cm LAIDs Index: 2.21 1.5-2.3 cm/m2 LV Mass: 272.16 67-162/88-224 g LV Mass Index: 150.36 43-95/49-115 g/m2 LVOT Diam: 2.30 3.0+(-)1.3 cm 2D Systolic Function EF 4C: 54.90 >55% EF 2C: 49.30 >55% Mitral Valve MV Pk E: 0.76 MV PK A: 0.82 MV Decel Time: 204.00 E/A: 0.90 E'Lateral: 10.00 E'Medial: 6.09 E/E' Med: 12.50 E/E' Lat: 7.60 PHT: 60.00 MVA PHT: 3.67 Decel Placer: 3.74 Aortic Valve AoV Pk Qasim: 1.38 AoV Mn Qasim: 1.01 AoV VTI: 0.27 AoV Pk Grad: 8.00 Aov Mn Grad: 4.00 SUSSY Cont.VTI: 2.62 LVOT LVOT Pk Qasim: 0.89 LVOT Mn Qasim: 0.63 LVOT VTI: 0.17 LVOT Pk Grad: 3.00 LVOT Mn Grad: 2.00 LVOT Diam: 2.30 LVOT Area: 4.15 Diastolic Function MV Pk E: 0.76 MV Pk A: 0.82 E/A: 0.90 E'Medial: 6.09 E/E' Med: 12.50 E' Laterial: 10.00 E/E' Lat: 7.60 Right Ventricle TAPSE (mm): 17.50 TVS' Qasim: 12.80 Tricuspid Valve TR Pk Qasim: 2.23 TR Pk Grad: 20.00 RA Press: 15.00 RVSP: 35.00 Great Vessels Aorta Sinus of Valsalva: 3.90 2.0-3.5 cm Ao Asc: 3.50 2.1-3.4 cm Pulmonary Valve PV Pk Qasim: 0.72 Peak PV Grad: 2.00 Updated in Other Vendor System with Status of Final Daniel Johnson MD electronically signed on 08/29/2022 4:28:01 PM with status of Final
[2022-08-29 07:46] LABS: Glucose, Whole Blood 170 mg/dL (60-115)
[2022-08-29] MEDS: Folic Acid 1 MG TABLET PO (08:28)
[2022-08-29] MEDS: 0.9 % Sodium Chloride Flush 3 ML SYRINGE IVFLUSH ×2 (08:28→16:39)
[2022-08-29] MEDS: Thiamine HCL 100 MG in 0.9 % Sodium Chloride 100 ML 202 MG IV (08:28)
[2022-08-29] MEDS: PHENobarbitaL 15 MG TABLET 45 MG PO (08:29)
[2022-08-29] MEDS: Insulin Lispro 100 UNIT/ML 3 ML VIAL SUBCUT ×2 (08:29→11:18)
[2022-08-29 11:08] LABS: Glucose, Whole Blood 168 mg/dL (60-115)
[2022-08-29] MEDS: guaiFENesin 200 MG/10 ML 10 ML LIQUID PO ×3 (11:11→21:23)
--- NOTE | 2022-08-29 12:57 | P.EN_ITS ---
Event Note Date of Service: 08/29/22 Event Note: Addiction consult placed for patient seen by clinical product specialist --please see note dated 08/28/2022 Time Spent With Patient Time: Total time managing care of this patient today ____ minutes.
--- NOTE | 2022-08-29 14:49 | P.PNIM_ITS ---
Subjective Subjective Date of Service: 08/29/22 Interval History: remains short of breath with minimal movement Review of Systems denies chest pain Admits to shortness of breath Denies nausea vomiting diarrhea Denies fever chills Physical Exam Vital Signs: Vital Signs: Last Vital Signs Temp 97.6 F 08/29/22 10:47 Pulse 93 08/29/22 10:47 Resp 20 08/29/22 10:47 BP 138/81 08/29/22 10:47 Pulse Ox 97 08/29/22 10:47 O2 Del Method 08/29/22 10:47 O2 Flow Rate 2 08/29/22 10:47 BMI result Body Mass Index 25.8 Const: Other: awake alert speaking in s Resp: Other: diminished at bases with scant crackles and diffus Cardio: Other: no S4; positive S1-S2; no S3 murmurs rubs or gallops GI: Other: soft nontender nondistended normoactive bowel sounds Extrem: Other: no edema bilaterally Objective Data Active Medications Acetaminophen (Acetaminophen 325 Mg Tablet) 650 mg PO Q6H PRN PRN Reason: Pain, Mild (Pain Scale 1-3) Last Admin: 08/27/22 18:45 Dose: 650 mg Documented By: CLARISSA Albuterol Sulfate (Albuterol Sulfate (0.083%) 2.5 Mg/3 Ml Vial.Neb) 2.5 mg INHALE Q4H PRN PRN Reason: Shortness of Breath/Wheezing Benzocaine (Throat Lozenge, Medicated Lozenge) 1 lozenge MUCOUS MEM Q2H PRN PRN Reason: Sore Throat Last Admin: 08/29/22 11:12 Dose: 1 lozenge Documented By: BRYNN Enoxaparin Sodium (Enoxaparin Sodium 40 Mg/0.4 Ml Syringe) 40 mg SUBCUT Q24H [facility] Last Admin: 08/29/22 01:02 Dose: 40 mg Documented By: BOY Folic Acid (Folic Acid 1 Mg Tablet) 1 mg PO DAILY [facility] Last Admin: 08/29/22 08:28 Dose: 1 mg Documented By: BRYNN Glucose (Glucose Gel 15 Gm Gel..Gram.) 15 gm PO Q15M PRN; Protocol PRN Reason: per Hypoglycemia Standing Ord. Guaifenesin (Guaifenesin 200 Mg/10 Ml 10 Ml Liquid) 10 ml PO Q4H PRN PRN Reason: Cough Last Admin: 08/29/22 11:11 Dose: 10 ml Documented By: BRYNN Ampicillin Sodium/Sulbactam (Sodium 3 gm/ Sodium Chloride) 100 mls @ 200 mls/hr IV Q6H [facility] Last Infusion: 08/29/22 12:03 Dose: 0 mls/hr Documented By: BRYNN Thiamine HCl 100 mg/ Sodium (Chloride) 101 mls @ 202 mls/hr IV DAILY [facility] Last Infusion: 08/29/22 09:05 Dose: 0 mls/hr Documented By: BRYNN Dextrose (D10) 250 mls @ 750 mls/hr IV Q15M PRN; Protocol PRN Reason: per Hypoglycemia Standing Ord. Insulin Human Lispro (Insulin Lispro 100 Unit/Ml 3 Ml Vial) 0 unit SUBCUT Q IDACHS [facility]; Protocol Last Admin: 08/29/22 11:18 Dose: 2 unit Documented By: BRYNN Melatonin (Melatonin 3 Mg Tablet) 6 mg PO BEDTIME PRN PRN Reason: Insomnia Last Admin: 08/28/22 00:12 Dose: 6 mg Documented By: STACEY Methylprednisolone Sodium Succinate (Methylprednisolone Sod Succ 40 Mg/Ml Vial) 40 mg IVPUSH Q12H [facility] Last Admin: 08/29/22 11:16 Dose: 40 mg Documented By: BRYNN Ondansetron HCl (Ondansetron Hcl 4 Mg/2 Ml Vial) 4 mg IVPUSH Q8H PRN PRN Reason: Nausea and Vomiting Pharmacy Consult (Consult Rx Perform Med Rec) 1 each MISCELLANE ONCE PRN PRN Reason: Consult order Pharmacy Consult (Consult Rx Etoh Phenob Im/Po) 1 each MISCELLANE ONCE PRN; Protocol PRN Reason: Consult order Phenobarbital (Phenobarbital 15 Mg Tablet) 15 mg PO BID [facility]; Protocol Stop: 08/31/22 09:01 Phenobarbital (Phenobarbital 15 Mg Tablet) 15 mg PO DAILY [facility]; Protocol Stop: 09/02/22 09:01 Sodium Chloride (0.9 % Sodium Chloride Flush 3 Ml Syringe) 3 ml IVFLUSH QSHIFT [facility] Last Admin: 08/29/22 08:28 Dose: 3 ml Documented By: BRYNN Labs 08/28/22 07:05 03/05/23 07:05 Labs: Laboratory Results - last 24 hr 08/28/22 08/28/22 08/29/22 16:48 20:53 07:24 POC Glucose 191 H 162 H 170 H 08/29/22 10:47 POC Glucose 168 H Microbiology Microbiology Results: Microbiology 08/27/22 00:27 Blood Culture - Preliminary Blood - Venous No growth after 48 hours. 08/27/22 00:27 Blood Culture - Preliminary Blood - Venous No growth after 48 hours. Assessment and Plan (1) Pneumonia: Status: Acute (2) Sepsis: Status: Acute (3) Hyperglycemia: Status: Acute Plan This is a 52-year-old male with pertinent history of alcohol use disorder admitted for aspiration pneumonia with sepsis and alcohol withdrawal 1.Sepsis due to pneumonia (sepsis resolved) -Unasyn (initiated 4) to cover aspiration pneumonia -Bandemia resolved -given wheezes will add pulse dose Solu-Medrol to hopefully wean off of O2 2.Alcohol use disorder -Monitor CIWA --Contineu IV thiamine x 3 days, then PO. Initiate folic acid 1mg daily -Addiction med consult 3.Hyperglycemia -Initiating Accu-Cheks with sliding scale insulin - will likely need insulin with introduction of steroids -A1c 5.2%, no diabetes 40 mg daily Full code Regular diet pt requires ongoing inpt hospital stay for IV antibiotics, on phenobarb per protocol for etoh withdrawal Time Spent With Patient Time: Total time managing care of this patient today ____ minutes. Quality Stroke Does the patient have a stroke diagnosis?: No VTE Prior VTE?: No VTE Risk Level:: Medical - moderate - high VTE Device Contraindication: Treatment Not Indicated VTE Drug Contraindication: N/A - Med Ordered
--- NOTE | 2022-08-29 15:58 | MHC.CM.PN ---
Male 52 DX weakness Patient has been diagnoced with PNA. Blood cultures are pending. DP home with or without home services. Patient will need C to assist with transportation.
[2022-08-29 16:18] LABS: Glucose, Whole Blood 144 mg/dL (60-115)
[2022-08-29 19:50] LABS: Glucose, Whole Blood 140 mg/dL (60-115)
[2022-08-29] MEDS: PHENobarbitaL 15 MG TABLET PO (21:23)
[2022-08-30] MEDS: methylPREDNISolone Sod Succ 40 MG/ML VIAL IVPUSH ×2 (00:38→11:39)
[2022-08-30] MEDS: Enoxaparin Sodium 40 MG/0.4 ML SYRINGE SUBCUT (00:38)
[2022-08-30] MEDS: Ampicillin Sodium/Sulbactam Na 3 GM in 0.9 % Sodium Chloride 100 ML IV ×4 (00:38→17:34)
[2022-08-30] MEDS: 0.9 % Sodium Chloride Flush 3 ML SYRINGE IVFLUSH ×3 (00:39→17:35)
[2022-08-30 03:57] VITALS: BP 130/85; PULSE 75; RESP 20; TEMP 36.2; O2SAT 97
[2022-08-30] MEDS: guaiFENesin 200 MG/10 ML 10 ML LIQUID PO ×4 (04:19→19:28)
[2022-08-30] MEDS: Throat Lozenge, Medicated LOZENGE 1 LOZENGE MUCOUS MEM ×6 (04:20→21:15)
[2022-08-30 06:49] LABS: MANUAL DIFF FLAG NO
[2022-08-30 06:58] LABS: Basophils Percent Auto 0.5 % (0-2); Eosinophils Percent Auto 0.2 % (0-4); Hematocrit 35.9 % (42.0-52.0); Hemoglobin 11.8 g/dl (14.0-18.0); Imm Gran Pct Auto 3.6 % (0.0-0.4); Lymphocytes Absolute Auto 0.5 X10*3/uL (1.2-4.9); Lymphocytes Percent Auto 9.6 % (20-40); Mean Corpuscular HGB Conc 32.9 g/dl (31.0-36.0); Mean Corpuscular Volume 91.3 fL (80.0-98.0); Mean Platelet Volume 11.1 fL (9.4-12.4); Monocytes Absolute Auto 0.5 X10*3/uL (0.1-1.2); Monocytes Percent Auto 8.3 % (2-11); Neutrophils Absolute Auto 4.3 x10*3/uL (2.0-8.3); Neutrophils Percent Auto 77.8 % (45-73); Platelet Count 176 X10*3/uL (160-400); Red Blood Count 3.93 X10*6/uL (4.60-5.80); Red Cell Distribution Width 14.6 % (11.0-16.0); White Blood Count 5.5 X10*3/uL (4.8-10.8)
[2022-08-30 07:17] VITALS: BP 158/98; PULSE 86; RESP 18; TEMP 36.2; O2SAT 98
[2022-08-30 07:27] LABS: Glucose, Whole Blood 153 mg/dL (60-115)
[2022-08-30 07:34] LABS: Alanine Aminotransferase 25 U/L (0-40); Albumin Level 2.8 g/dL (3.5-5.0); Alkaline Phosphatase 62 U/L (39-117); Aspartate Amino Transferase 26 U/L (5-37); Bilirubin Total 0.3 mg/dL (0.0-1.0); Blood Urea Nitrogen 19 mg/dL (9-16); Calcium 7.5 mg/dL (8.4-10.2); Creatinine Clr Calc Pharmacy 119.9; Estimated Glomerular Filt Rate > 60; Glucose Fasting 151 mg/dL (60-99); Total Protein 5.7 g/dL (6.5-8.0)
[2022-08-30 07:40] LABS: Anion Gap 14 (12-20); Carbon Dioxide 25 mmol/L (22-29); Chloride 106 mmol/L (96-108); Potassium 4.4 mmol/L (3.3-5.1); Sodium 141 mmol/L (135-145)
[2022-08-30] MEDS: Insulin Lispro 100 UNIT/ML 3 ML VIAL SUBCUT ×2 (08:46→21:15)
[2022-08-30] MEDS: PHENobarbitaL 15 MG TABLET PO ×2 (08:46→21:15)
[2022-08-30] MEDS: Thiamine HCL 100 MG in 0.9 % Sodium Chloride 100 ML 202 MG IV (08:47)
[2022-08-30] MEDS: Folic Acid 1 MG TABLET PO (08:47)
[2022-08-30 11:05] VITALS: BP 161/88; PULSE 93; RESP 19; TEMP 36.7; O2SAT 95
[2022-08-30 11:42] LABS: Glucose, Whole Blood 113 mg/dL (60-115)
--- NOTE | 2022-08-30 14:30 | MHC.CM.PN ---
PT eval today recommends STR. Preferences obtained and referrals have been sent. CM will follow for discharge.
--- NOTE | 2022-08-30 15:12 | P.PNIM_ITS ---
Subjective Subjective Date of Service: 08/30/22 Interval History: slowly improving. Mildly short of breath when supine. O2 requirement has resolved Review of Systems denies chest pain Admits to shortness of breath Denies nausea vomiting diarrhea Denies fever chills Physical Exam Vital Signs: Vital Signs: Last Vital Signs Temp 98.1 F 08/30/22 11:05 Pulse 93 08/30/22 11:05 Resp 19 08/30/22 11:05 BP 161/88 H 08/30/22 11:05 Pulse Ox 95 08/30/22 11:05 O2 Del Method 08/30/22 11:05 O2 Flow Rate 2 08/29/22 15:18 BMI result Body Mass Index 25.8 Const: Other: awake alert speaking in s Resp: Other: diminished at bases with scant crackles and diffuse expiratory wheezes Cardio: Other: no S4; positive S1-S2; no S3 murmurs rubs or gallops GI: Other: soft nontender nondistended normoactive bowel sounds Extrem: Other: no edema bilaterally Objective Data Active Medications Acetaminophen (Acetaminophen 325 Mg Tablet) 650 mg PO Q6H PRN PRN Reason: Pain, Mild (Pain Scale 1-3) Last Admin: 08/27/22 18:45 Dose: 650 mg Documented By: CLARISSA Albuterol Sulfate (Albuterol Sulfate (0.083%) 2.5 Mg/3 Ml Vial.Neb) 2.5 mg INHALE Q4H PRN PRN Reason: Shortness of Breath/Wheezing Benzocaine (Throat Lozenge, Medicated Lozenge) 1 lozenge MUCOUS MEM Q2H PRN PRN Reason: Sore Throat Last Admin: 08/30/22 14:08 Dose: 1 lozenge Documented By: BRYNN Enoxaparin Sodium (Enoxaparin Sodium 40 Mg/0.4 Ml Syringe) 40 mg SUBCUT Q24H [facility] Last Admin: 08/30/22 00:38 Dose: 40 mg Documented By: SHARI-SHABNAM Folic Acid (Folic Acid 1 Mg Tablet) 1 mg PO DAILY [facility] Last Admin: 08/30/22 08:47 Dose: 1 mg Documented By: BRYNN Glucose (Glucose Gel 15 Gm Gel..Gram.) 15 gm PO Q15M PRN; Protocol PRN Reason: per Hypoglycemia Standing Ord. Guaifenesin (Guaifenesin 200 Mg/10 Ml 10 Ml Liquid) 10 ml PO Q4H PRN PRN Reason: Cough Last Admin: 08/30/22 14:08 Dose: 10 ml Documented By: BRYNN Ampicillin Sodium/Sulbactam (Sodium 3 gm/ Sodium Chloride) 100 mls @ 200 mls/hr IV Q6H [facility] Last Infusion: 08/30/22 12:15 Dose: 0 mls/hr Documented By: BRYNN Thiamine HCl 100 mg/ Sodium (Chloride) 101 mls @ 202 mls/hr IV DAILY [facility] Last Infusion: 08/30/22 09:48 Dose: 0 mls/hr Documented By: BRYNN Dextrose (D10) 250 mls @ 750 mls/hr IV Q15M PRN; Protocol PRN Reason: per Hypoglycemia Standing Ord. Insulin Human Lispro (Insulin Lispro 100 Unit/Ml 3 Ml Vial) 0 unit SUBCUT QIDACHS [facility]; Protocol Last Admin: 08/30/22 11:43 Dose: Not Given Documented By: BRYNN Non-Admin Reason: No Insulin Coverage Melatonin (Melatonin 3 Mg Tablet) 6 mg PO BEDTIME PRN PRN Reason: Insomnia Last Admin: 08/28/22 00:12 Dose: 6 mg Documented By: STACEY Methylprednisolone Sodium Succinate (Methylprednisolone Sod Succ 40 Mg/Ml Vial) 40 mg IVPUSH Q12H [facility] Last Admin: 08/30/22 11:39 Dose: 40 mg Documented By: BRYNN Ondansetron HCl (Ondansetron Hcl 4 Mg/2 Ml Vial) 4 mg IVPUSH Q8H PRN PRN Reason: Nausea and Vomiting Pharmacy Consult (Consult Rx Perform Med Rec) 1 each MISCELLANE ONCE PRN PRN Reason: Consult order Pharmacy Consult (Consult Rx Etoh Phenob Im/Po) 1 each MISCELLANE ONCE PRN; Protocol PRN Reason: Consult order Phenobarbital (Phenobarbital 15 Mg Tablet) 15 mg PO BID [facility]; Protocol Stop: 08/31/22 09:01 Last Admin: 08/30/22 08:46 Dose: 15 mg Documented By: BRYNN Phenobarbital (Phenobarbital 15 Mg Tablet) 15 mg PO DAILY [facility]; Protocol Stop: 09/02/22 09:01 Sodium Chloride (0.9 % Sodium Chloride Flush 3 Ml Syringe) 3 ml IVFLUSH QSHIFT [facility] Last Admin: 08/30/22 08:46 Dose: 3 ml Documented By: BRYNN Labs 08/30/22 06:39 08/30/22 06:39 Labs: Laboratory Results - last 24 hr 08/29/22 08/29/22 08/30/22 16:00 19:45 06:39 MCV 91.3 MCH 30.0 MCHC 32.9 RDW 14.6 Plt Count 176 D MPV 11.1 Immature Gran % (Auto) 3.6 H Neut % (Auto) 77.8 H Lymph % (Auto) 9.6 L [place] % (Auto) 8.3 Eos % (Auto) 0.2 Baso % (Auto) 0.5 Lymph # (Auto) 0.5 L [place] # (Auto) 0.5 Eos # (Auto) 0.0 Baso # (Auto) 0.0 Abs Immat Gran (auto) 0.20 H Absolute Neuts (auto) 4.3 Absolute Nucleated RBC 0.000 Nucleated RBC % (auto) 0.0 Anion Gap Estim Creat Clear Calc Estimated GFR POC Glucose 144 H 140 H Fasting Glucose Calcium Total Bilirubin AST ALT Alkaline Phosphatase Total Protein Albumin 08/30/22 08/30/22 08/30/22 06:39 07:19 11:36 MCV MCH MCHC RDW Plt Count MPV Immature Gran % (Auto) Neut % (Auto) Lymph % (Auto) [place] % (Auto) Eos % (Auto) Baso % (Auto) Lymph # (Auto) [place] # (Auto) Eos # (Auto) Baso # (Auto) Abs Immat Gran (auto) Absolute Neuts (auto) Absolute Nucleated RBC Nucleated RBC % (auto) Anion Gap 14 Estim Creat Clear Calc 119.9 Estimated GFR > 60 POC Glucose 153 H 113 Fasting Glucose 151 H Calcium 7.5 L Total Bilirubin 0.3 AST 26 ALT 25 Alkaline Phosphatase 62 Total Protein 5.7 L Albumin 2.8 L Assessment and Plan (1) Sepsis: Status: Acute (2) Pneumonia: Status: Acute (3) Hyperglycemia: Status: Acute Plan This is a 52-year-old male with pertinent history of alcohol use disorder admitted for aspiration pneumonia with sepsis and alcohol withdrawal 1.Sepsis due to pneumonia (sepsis resolved) -Unasyn (5) to cover aspiration pneumonia -pulse dose Solu-Medrol - DuoNebs q.4 hours while awake 2.Alcohol use disorder -Monitor CIWA.. 0 this a.m. --Contineu IV thiamine x 3 days, then PO. Initiate folic acid 1mg daily -Addiction med consult 3.Hyperglycemia -Initiating Accu-Cheks with sliding scale insulin - will likely need insulin with introduction of steroids -A1c 5.2%, no diabetes Lovenox 40 mg daily Full code pt requires ongoing inpt hospital stay for IV antibiotics, on phenobarb per protocol for etoh withdrawal Time Spent With Patient Time: Total time managing care of this patient today ____ minutes. Quality Stroke Does the patient have a stroke diagnosis?: No VTE Prior VTE?: No VTE Risk Level:: Medical - moderate - high VTE Device Contraindication: Treatment Not Indicated VTE Drug Contraindication: N/A - Med Ordered
[2022-08-30 16:00] VITALS: BP 150/98; PULSE 82; RESP 17; TEMP 37.2; O2SAT 97
[2022-08-30 16:39] LABS: Glucose, Whole Blood 144 mg/dL (60-115)
[2022-08-30] MEDS: methylPREDNISolone Sod Succ 125 MG/2 ML VIAL 60 MG IVPUSH ×2 (17:34→22:39)
[2022-08-30 19:44] VITALS: BP 152/86; PULSE 77; RESP 16; TEMP 36.8; O2SAT 96
[2022-08-30 20:23] LABS: Glucose, Whole Blood 186 mg/dL (60-115)
[2022-08-30 23:42] VITALS: BP 156/94; PULSE 62; RESP 18; TEMP 36.3; O2SAT 98
[2022-08-31] MEDS: Ampicillin Sodium/Sulbactam Na 3 GM in 0.9 % Sodium Chloride 100 ML IV ×3 (01:39→12:09)
[2022-08-31] MEDS: 0.9 % Sodium Chloride Flush 3 ML SYRINGE IVFLUSH ×2 (01:39→08:28)
[2022-08-31] MEDS: Enoxaparin Sodium 40 MG/0.4 ML SYRINGE SUBCUT (01:39)
[2022-08-31 03:47] VITALS: BP 160/100; PULSE 60; RESP 20; TEMP 36.5; O2SAT 98
[2022-08-31] MEDS: methylPREDNISolone Sod Succ 125 MG/2 ML VIAL 60 MG IVPUSH ×2 (05:20→12:09)
[2022-08-31 07:26] VITALS: BP 143/89; PULSE 75; RESP 18; TEMP 36.4; O2SAT 99
[2022-08-31 07:46] LABS: Glucose, Whole Blood 143 mg/dL (60-115)
[2022-08-31 08:22] LABS: MANUAL DIFF FLAG NO
[2022-08-31] MEDS: PHENobarbitaL 15 MG TABLET PO (08:28)
[2022-08-31] MEDS: Folic Acid 1 MG TABLET PO (08:28)
[2022-08-31] MEDS: Thiamine HCL 100 MG in 0.9 % Sodium Chloride 100 ML 202 MG IV (08:34)
[2022-08-31] MEDS: guaiFENesin 200 MG/10 ML 10 ML LIQUID PO (08:35)
[2022-08-31] MEDS: Throat Lozenge, Medicated LOZENGE 1 LOZENGE MUCOUS MEM (08:35)
[2022-08-31 08:38] LABS: Basophils Percent Auto 0.3 % (0-2); Hematocrit 37.7 % (42.0-52.0); Hemoglobin 12.2 g/dl (14.0-18.0); Imm Gran Abs Auto 0.19 X10*3/uL (0.00-0.03); Imm Gran Pct Auto 2.4 % (0.0-0.4); Lymphocytes Absolute Auto 0.6 X10*3/uL (1.2-4.9); Mean Corpuscular HGB Conc 32.4 g/dl (31.0-36.0); Mean Corpuscular Hemoglobin 29.6 pg (27.0-33.0); Mean Corpuscular Volume 91.5 fL (80.0-98.0); Mean Platelet Volume 10.8 fL (9.4-12.4); Monocytes Absolute Auto 0.4 X10*3/uL (0.1-1.2); Monocytes Percent Auto 5.4 % (2-11); Neutrophils Absolute Auto 6.7 x10*3/uL (2.0-8.3); Neutrophils Percent Auto 83.9 % (45-73); Platelet Count 236 X10*3/uL (160-400); Red Blood Count 4.12 X10*6/uL (4.60-5.80); Red Cell Distribution Width 14.6 % (11.0-16.0)
[2022-08-31 08:49] LABS: Alanine Aminotransferase 22 U/L (0-40); Albumin Level 2.8 g/dL (3.5-5.0); Alkaline Phosphatase 65 U/L (39-117); Bilirubin Total 0.3 mg/dL (0.0-1.0); Blood Urea Nitrogen 17 mg/dL (9-16); Calcium 7.8 mg/dL (8.4-10.2); Creatinine Clr Calc Pharmacy 118.1; Estimated Glomerular Filt Rate > 60; Glucose Fasting 153 mg/dL (60-99); Total Protein 5.7 g/dL (6.5-8.0)
[2022-08-31 09:06] LABS: Anion Gap 12 (12-20); Aspartate Amino Transferase 19 U/L (5-37); Carbon Dioxide 30 mmol/L (22-29); Chloride 103 mmol/L (96-108); Potassium 4.6 mmol/L (3.3-5.1); Sodium 140 mmol/L (135-145)
[2022-08-31 11:21] VITALS: BP 137/94; PULSE 85; RESP 18; TEMP 36.7; O2SAT 98
--- NOTE | 2022-08-31 11:42 | P.DS_ITS ---
DS: Providers Provider Date of Service: 08/31/22 Date of admission: 08/27/22 01:10 Date of discharge: 08/31/22 Primary care physician: [facility] Consults: 08/27/22 11:47 Addiction Medicine Routine Consulting Provider: Addiction Covering Reason for consultation: etoh dependence, desires detox DS: Diagnosis Discharge Diagnosis (1) Sepsis: Status: Acute (2) Pneumonia: Status: Acute (3) Hyperglycemia: Status: Acute DS: Summary Hospital Course Hospital Course: 52-year-old male with pertinent history of alcohol use disorder who presents to the emergency department for evaluation of weakness.? Patient states he is here for generalized weakness and alcohol detox .? States he was drinking all day and his last drink was 09:00.? Home as he states because of his drinking he also tripped and fell.? Did not hit his head.? He says no to all other review of systems.? Very minimal interaction and does not want to talk.? He is not on any prescription medications. In the emergency department, patient was found to be septic and imaging was concerning for pneumonia [facility] admitted to general medical floor and started on Zosyn cover aspiration pneumonia. Initially with O2 requirement however over time O2 requirement resolves. Continue to be afebrile however did have significant wheezes for which he was started on Solu-Medrol with good results. 24 hours prior to discharge his CIWA scale has remained 0. physical therapy recommends short-term rehab; medically acceptable for transfer to short-term rehab Time Spent with Patient Time attestation: Total time managing care of this patient today ____ minutes. Discharge coordination time: Greater than 30 minutes Quality: Safe Use of Opioids Does Pt have an Active Cancer Diagnosis on the Problem List?: No Quality: Stroke Does the patient have a stroke diagnosis?: No Physical Exam Vital Signs: Vital Signs: Last Vital Signs Temp 98.0 F 08/31/22 11:21 Pulse 85 08/31/22 11:21 Resp 18 08/31/22 11:21 BP 137/94 H 08/31/22 11:21 Pulse Ox 98 08/31/22 11:21 O2 Del Method 08/31/22 11:21 O2 Flow Rate 2 08/29/22 15:18 BMI result Body Mass Index 25.8 Const: Other: awake alert speaking in s Resp: Other: diminished at bases with scant crackles and diffuse expiratory wheezes Cardio: Other: no S4; positive S1-S2; no S3 murmurs rubs or gallops GI: Other: soft nontender nondistended normoactive bowel sounds Extrem: Other: no edema bilaterally DS: Data Data Completed and Pending Completed studies during hospitalization [Text1]: Procedures Detoxification Services for Substance Abuse Treatment (06/30/21) Labs on day of discharge: Laboratory Results - last 24 hr 08/30/22 08/30/22 08/30/22 11:36 16:31 20:19 WBC RBC Hgb Hct MCV MCH MCHC RDW Plt Count MPV Immature Gran % (Auto) Neut % (Auto) Lymph % (Auto) [place] % (Auto) Eos % (Auto) Baso % (Auto) Lymph # (Auto) [place] # (Auto) Eos # (Auto) Baso # (Auto) Abs Immat Gran (auto) Absolute Neuts (auto) Absolute Nucleated RBC Nucleated RBC % (auto) Sodium Potassium Chloride Carbon Dioxide Anion Gap BUN Creatinine Estim Creat Clear Calc Estimated GFR POC Glucose 113 144 H 186 H Fasting Glucose Calcium Total Bilirubin AST ALT Alkaline Phosphatase Total Protein Albumin 08/31/22 08/31/22 08/31/22 07:28 07:39 07:39 WBC 8.0 RBC 4.12 L Hgb 12.2 L Hct 37.7 L MCV 91.5 MCH 29.6 MCHC 32.4 RDW 14.6 Plt Count 236 D MPV 10.8 Immature Gran % (Auto) 2.4 H Neut % (Auto) 83.9 H Lymph % (Auto) 8.0 L [place] % (Auto) 5.4 Eos % (Auto) 0.0 Baso % (Auto) 0.3 Lymph # (Auto) 0.6 L [place] # (Auto) 0.4 Eos # (Auto) 0.0 Baso # (Auto) 0.0 Abs Immat Gran (auto) 0.19 H Absolute Neuts (auto) 6.7 Absolute Nucleated RBC 0.000 Nucleated RBC % (auto) 0.0 Sodium 140 Potassium 4.6 Chloride 103 Carbon Dioxide 30 H Anion Gap 12 BUN 17 H Creatinine 0.66 Estim Creat Clear Calc 118.1 Estimated GFR > 60 POC Glucose 143 H Fasting Glucose 153 H Calcium 7.8 L Total Bilirubin 0.3 AST 19 ALT 22 Alkaline Phosphatase 65 Total Protein 5.7 L Albumin 2.8 L Preliminary micro results at discharge 08/27/22 00:27 Blood Culture - Preliminary Blood - Venous No growth after 48 hours. 08/27/22 00:27 Blood Culture - Preliminary Blood - Venous No growth after 48 hours. Discharge Plan Discharge Anticipated Discharge Date/Time: 08/31/22 11:33 Patient Disposition: Xfer Inpatient Rehab Fac Discharge Diagnosis: aspiration pneumonia Referrals: Trilla[facility] [Primary Care Provider] - 1 Week Discharge Medications: New albuterol sulfate 2.5 mg /3 mL (0.083 %) Solution For Nebulization 2.5 mg inhalation Q4H PRN (Reason: Shortness Of Breath/Wheezing) Qty: 90 0RF folic acid 1 mg Tablet 1 mg PO DAILY Qty: 30 0RF amoxicillin-pot clavulanate 875-125 mg tablet 1 tab PO BID Qty: 20 0RF prednisone 10 mg tablet See Rx Instructions .Route .COMPLEX Qty: 45 0RF Rx Instructions: 10 mg orally; 5 tabs p.o. daily x3 days; 4 tabs p.o. daily x3 days; 3 tabs daily x3 days; 2 tabs daily x3 days; 1 tab daily x3 days Discharge Orders: Discharge Order (Routine); Ordered 08/31/22 Ordered By: Bladimir Coleman Diet: Advance to usual diet Activity on Discharge: As tolerated Stand Alone Forms: Patient Portal Discharge page Care Plan Goals: complete course of Augmentin along with prednisone taper Health Concerns: increased activity ambulation as per receiving facility Plan of Treatment: as per receiving facility Assessment: see discharge summary
[2022-08-31 11:44] LABS: Glucose, Whole Blood 142 mg/dL (60-115)
--- NOTE | 2022-08-31 12:02 | MHC.CM.PN ---
Addendum entered by Luisa Lyons 08/31/22 14:40: PT assessed Pt today. He no longer qualifies for STR. The patient will return to his friend Angela home. Original Note: The patient is ready to discharge today. He has accepted a bed offer from [facility]. DC Summary and packet have been sent. The covid test is pending. Patient will transport via S.
[2022-09-01 00:16] LABS: COVID-19 Test Negative (Negative); IDNOW Serial# 16C4AD1C
--- NOTE | 2022-09-02 12:04 | P.CDIM_ITS ---
PROVIDER RESPONSE TEXT: To clarify, the appropriate diagnosis supported by the clinical indicators: Acute respiratory failure: Hypoxic QUERY TEXT: PHYSICIAN'S DOCUMENTATION REQUEST Date of Query: 08/30/2022 01:05 PM EST Patient Name: Fernando Fuller Admit Date: 08/27/2022 Dear Bladimir Coleman, A review of the medical record indicates additional documentation may be needed. Please review below and update the documentation accordingly. Clinical Indicators: Per provider progress note on 08/27: He is noted to be tachycardic and tachypneic. Has nonproductive cough. Per provider progress note on 08/29: Remains short of breath with minimal movement. Other indicators/risk factors: -Patient with aspiration PNA -Patient with tachycardia (HR reaching 125) -Patient with tachypnea (RR reaching 31) -Patient requiring O2 via NC -Patient receiving Solu-Medrol -Patient requiring PRN nebulizer treatments Please clarify which of the following accurately represents the patient's respiratory status: Acute respiratory failure Please specify if Hypoxic, Hypercapnic, or Hypoxic and hypercapnic Other Other (explain) Clinically unable to determine (explain) Thank you, Marie Dupont, MS, RN, CCRN Use of terms such as suspected, likely, concern for, or probable (associated with a specific diagnosi s that is being evaluated, monitored, or treated as if it exists) are acceptable and can be coded in the inpatient se tting, when documented at the time of discharge. Please use your independent medical judgment in providing your response. THIS QUERY IS PART OF THE PERMANENT MEDICAL RECORD
== END 2022-08-31 15:25 | disposition home or self-care (01) | DRG 720 ==
LOC: HO.ED 08-27 00:04 → HO.EDOVER 08-27 01:16 → HO.IMC 08-27 06:21
PROVIDERS: Nurse Practitioner Family; Physician Assistant; Admitting Provider Student in an Organized Health Care Education/Training Program; Emergency Provider Student in an Organized Health Care Education/Training Program; Visit Provider Hospitalist
DX: A41.9 Sepsis, unspecified organism (principal); J96.01 Acute respiratory failure with hypoxia; J69.0 Pneumonitis due to inhalation of food and vomit; E78.00 Pure hypercholesterolemia, unspecified; F10.139 Alcohol abuse with withdrawal, unspecified; F10.129 Alcohol abuse with intoxication, unspecified; I10 Essential (primary) hypertension; Z20.822 Contact with and (suspected) exposure to COVID-19
CPT/HCPCS: 0241U; 36415; 71045; 71250; 74176; 80048; 80053; 80076; 81001; 82077; 82947; 83036; 83605; 83690; 83880; 84484; 85007; 85025; 85027; 87040; 87635; 87651; 93005; 93306; 97116; 97162; 99285; J0295; J0696; J1650; J2560; J2920; J2930; J3411; Q9957

== ENCOUNTER 2022-09-01 04:02 | Inpatient (IN) | payer MEDICAID, SELFPAY ==
--- NOTE | ~2022-09-01 | CT_ITS ---
EXAMINATION: CT CHEST WITHOUT CONTRAST CLINICAL INFORMATION: Bilateral pneumonia COMPARISON: 08/27/2022 and 03/03/2022 TECHNIQUE: Multidetector volumetric CT imaging of the chest was done. Axial MIP volume rendering provided. Sagittal and coronal reformatted images were obtained. This CT examination was performed using dose optimization techniques as appropriate, variously including the following: *Automated exposure control *Adjustment of mA and/or kV according to patient size (this includes techniques or standardized protocols for targeted exams where dose is matched to indication/reason for exam; i.e. extremities or head) *Use of iterative reconstruction technique DLP: 250 mGy-cm FINDINGS: LUNGS: Again seen is diffuse subpleural reticulation and diffuse thickening of the interstitium with subpleural architectural distortion and areas of traction bronchiolectasis with microcystic honeycombing evident, most notably within the lower lobes bilaterally. There is more coalescent opacity in the left lower lobe, which is unchanged from prior. No pneumothorax. MEDIASTINUM: Stable cardiomegaly. No pericardial effusion. Great vessels normal caliber. Reactive mediastinal and bilateral hilar lymph nodes are slightly smaller than on the prior examination. CORONARY ARTERY CALCIFICATION: Present. PLEURA: There is no pleural effusion. No pleural mass or thickening. AXILLA: No lymphadenopathy. UPPER ABDOMEN: Unremarkable. OSSEOUS STRUCTURES: No acute or suspicious osseous abnormalities. CT/CT chest wo IV con IMPRESSION: * No acute pulmonary parenchymal abnormalities. 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 Stable patchy and more coalescent airspace opacities in the left lower lobe, and to lesser extent right lower lobe could be compatible with a superimposed multifocal pneumonia. * Stable cardiomegaly. * Reactive mediastinal and bilateral hilar lymph nodes are slightly smaller than on the prior examination.
--- NOTE | ~2022-09-01 | XR_ITS ---
EXAMINATION: XR CHEST CLINICAL INFORMATION: Cough COMPARISON: 08/30/2022 TECHNIQUE: Frontal view of the chest was obtained. FINDINGS: Stable prominence of the cardiac silhouette. Pulmonary venous congestion. Diffuse bilateral airspace opacities appear slightly worse in the left lower lung. No large pleural effusion. No pneumothorax. No acute osseous abnormalities. XR/XR chest 1V IMPRESSION: * Diffuse bilateral airspace opacities appear slightly worse in the left lower lung. * Pulmonary venous congestion without overt edema.
[2022-09-01 04:08] VITALS: BP 145/92; BP 154/101; PULSE 89; PULSE 94; RESP 20; TEMP 36.6; O2SAT 94; O2SAT 95; BMI 25.8
--- NOTE | 2022-09-01 04:08 | ED_ITS ---
HPI - General Adult General Chief complaint: General Medical Stated complaint: Sore Throat Time Seen by Provider: 09/01/22 04:05 Source: patient Mode of arrival: EMS Limitations: no limitations History of Present Illness HPI narrative: Patient alcoholic history of high cholesterol and hypertension was admitted here on 08/26 for aspiration pneumonia discharge yesterday comes back as he is not feeling good patient few drinks prior to arrival. Patient been coughing afebrile on arrival saturating 94% on room air Related Data Previous Rx's Medication Instructions Recorded albuterol sulfate 2.5 mg/3 mL 2.5 mg (3 mL) inhalation Q4H PRN 08/31/22 (0.083 %) solution for nebulization Shortness Of Breath/Wheezing #90 mL amoxicillin 875 mg-potassium 1 tab PO BID #20 tabs 08/31/22 clavulanate 125 mg tablet folic acid 1 mg tablet 1 mg PO DAILY #30 tabs 08/31/22 prednisone 10 mg tablet See Rx Instructions .Route 08/31/22 .COMPLEX #45 tabs Allergies Allergy/AdvReac Type Severity Reaction Status Date / Time clams Allergy Severe HIVES, Verified 08/27/22 02:35 DIFFICULTY BREATHING Review of Systems Review of Systems: Constitutional : No Weight loss, No Fever, No Chills ENT/Mouth : No sore throat, No Rhinorrhea Eyes: No Eye Pain, No Swelling Cardiovascular : No Chest Pain, no palpitations Respiratory : ++ Cough, No Sputum, no shortness of breath Gastrointestinal : no Nausea, No Vomiting, No Diarrhea, No abdominal Pain, no black stools Genitourinary : No Dysuria, No Urinary Frequency Musculoskeletal : No joint pain, No Myalgias, No Joint Swelling Skin : No Skin Lesions, No rash Neuro : No Weakness, No Numbness, No Dizziness, No Headache Psych : No Anxiety/Panic, No Depression Heme/Lymph: No Bruising, No Lymphadenopathy Endocrine : No Polyuria, No Polydipsia All other systems reviewed and are negative Yes all other systems are reviewed and are negative [facility] Past Medical History Medical History ETOH abuse High cholesterol HTN (hypertension) Social History Social History Household Members: None Housing: Homeless Do you presently have visiting nurse or other home services: No Alcohol intake: current Alcohol intake frequency: 3 or more drinks per day Alcohol type: beer and hard liquor Patient Tobacco Use Status: Never used Tobacco Use of substances other than those prescribed or required for medical reasons: No Advance Directives: No service: No Current occupational status: unemployed Physical Exam ED Vital Signs: Vital Signs - 24 hr 09/01/22 04:08 09/01/22 06:06 Temperature 97.8 F 98.7 F Pulse Rate 89 82 Respiratory Rate 20 16 Blood Pressure 145/92 H 138/88 Pulse Oximetry 94 95 Oxygen Delivery Method Room Air Room Air BMI result Body Mass Index 25.8 Appearance: Alert. Oriented X3. No acute distress. ETOH++ Eyes: PERRLA, No Nystagmus ENT: Pharynx normal. Oral Mucosa moist Neck: Normal inspection. Neck supple. CVS: Normal heart rate and rhythm. Pulses normal. Respiratory: No respiratory distress. Equal air entry bilateral, bilateral coarse rales left base> right-side Abdomen: Soft and nontender. Bowel sounds are present, no mass palpable, no CVA tenderness Skin: Skin warm and dry. Normal skin color. Normal skin turgor. Extremities: No lower extremity edema. No calf tenderness Neuro: Oriented X 3. No motor deficit. No sensory deficit.No cerebellar signs , cranial nerves II-XII intact Medications Administered Discontinued Medications Generic Name Dose Route Start Last Admin Trade Name Freq PRN Reason Stop Dose Admin Amoxicillin/Clavulanate Potassium 875 mg 09/01/22 04:10 09/01/22 04:18 Amoxicillin/Potassium Clav 875 Mg Tablet PO 09/01/22 04:11 875 mg ONCE ONE Administration Ampicillin Sodium/Sulbactam 100 mls @ 200 mls/hr 09/01/22 05:06 09/01/22 06:38 Sodium 3 gm/ Sodium Chloride IV 09/01/22 05:35 Infused ONCE ONE Infusion Medical Decision Making Medical Decision Making [facility] Narrative: Patient x-ray shows worsening of left lower lobe consolidation will repeat the CT scan done showed *? No acute pulmonary parenchymal abnormalities. *? 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 Stable patchy and more coalescent airspace opacities in the left lower lobe, and to lesser extent right lower lobe could be compatible with a superimposed multifocal pneumonia. *? Stable cardiomegaly. *? Reactive mediastinal and bilateral hilar lymph nodes are slightly , will start IV Unasyn and vancomycin plan to admit, may need bronchoscopy Consult Healthcare Provider Management of the patient was discussed with: Hospitalist Lab Data MDM Lab Attestation statement: I reviewed the patient's lab results. 09/01/22 05:23 09/01/22 05:23 Labs: Lab Results 09/01/22 09/01/22 09/01/22 Range/Units 05:23 05:23 05:23 WBC 6.8 (4.8-10.8) X10*3/uL RBC 3.88 L (4.60-5.80) X10*6/uL Hgb 11.6 L (14.0-18.0) g/dl Hct 35.3 L (42.0-52.0) % MCV 91.0 (80.0-98.0) fL MCH 29.9 (27.0-33.0) pg MCHC 32.9 (31.0-36.0) g/dl RDW 14.8 (11.0-16.0) % Plt Count 243 (160-400) X10*3/uL MPV 10.1 (9.4-12.4) fL Immature Gran % (Auto) 4.9 H (0.0-0.4) % Neut % (Auto) 64.8 (45-73) % Lymph % (Auto) 19.3 L (20-40) % [place] % (Auto) 10.0 (2-11) % Eos % (Auto) 0.7 (0-4) % Baso % (Auto) 0.3 (0-2) % Lymph # (Auto) 1.3 (1.2-4.9) X10*3/uL [place] # (Auto) 0.7 (0.1-1.2) X10*3/uL Eos # (Auto) 0.1 (0.0-0.4) X10*3/uL Baso # (Auto) 0.0 (0.0-0.2) X10*3/uL Abs Immat Gran (auto) 0.33 H (0.00-0.03) X10*3/uL Absolute Neuts (auto) 4.4 (2.0-8.3) x10*3/uL Absolute Nucleated RBC 0.000 (0.0-0.012) X10*3/uL Nucleated RBC % (auto) 0.0 (0.0-0.2) /100WBC Sodium 144 (135-145) mmol/L Potassium 3.4 D (3.3-5.1) mmol/L Chloride 107 (96-108) mmol/L Carbon Dioxide 30 H (22-29) mmol/L Anion Gap 10 L (12-20) BUN 16 (9-16) mg/dL Creatinine 0.68 (0.5-1.4) mg/dL Estim Creat Clear Calc 114.6 Estimated GFR > 60 Random Glucose 111 (60-115) mg/dL Lactic Acid 1.7 (0.5-2.0) mmol/L Calcium 7.6 L (8.4-10.2) mg/dL Magnesium 2.1 (1.6-2.6) mg/dL Total Bilirubin 0.2 (0.0-1.0) mg/dL AST 24 (5-37) U/L ALT 25 (0-40) U/L Alkaline Phosphatase 64 (39-117) U/L Total Protein 6.0 L (6.5-8.0) g/dL Albumin 3.1 L (3.5-5.0) g/dL Ethyl Alcohol 46 mg/dL COVID-19 (TYE) (Negative) COVID-19 Clin Com Influenza Type A (CAROL ANN) (Negative) Influenza Type B (CAROL ANN) (Negative) Influenza A & B Note 09/01/22 09/01/22 Range/Units 05:23 05:23 WBC (4.8-10.8) X10*3/uL RBC (4.60-5.80) X10*6/uL Hgb (14.0-18.0) g/dl Hct (42.0-52.0) % MCV (80.0-98.0) fL MCH (27.0-33.0) pg MCHC (31.0-36.0) g/dl RDW (11.0-16.0) % Plt Count (160-400) X10*3/uL MPV (9.4-12.4) fL Immature Gran % (Auto) (0.0-0.4) % Neut % (Auto) (45-73) % Lymph % (Auto) (20-40) % [place] % (Auto) (2-11) % Eos % (Auto) (0-4) % Baso % (Auto) (0-2) % Lymph # (Auto) (1.2-4.9) X10*3/uL [place] # (Auto) (0.1-1.2) X10*3/uL Eos # (Auto) (0.0-0.4) X10*3/uL Baso # (Auto) (0.0-0.2) X10*3/uL Abs Immat Gran (auto) (0.00-0.03) X10*3/uL Absolute Neuts (auto) (2.0-8.3) x10*3/uL Absolute Nucleated RBC (0.0-0.012) X10*3/uL Nucleated RBC % (auto) (0.0-0.2) /100WBC Sodium (135-145) mmol/L Potassium (3.3-5.1) mmol/L Chloride (96-108) mmol/L Carbon Dioxide (22-29) mmol/L Anion Gap (12-20) BUN (9-16) mg/dL Creatinine (0.5-1.4) mg/dL Estim Creat Clear Calc Estimated GFR Random Glucose (60-115) mg/dL Lactic Acid (0.5-2.0) mmol/L Calcium (8.4-10.2) mg/dL Magnesium (1.6-2.6) mg/dL Total Bilirubin (0.0-1.0) mg/dL AST (5-37) U/L ALT (0-40) U/L Alkaline Phosphatase (39-117) U/L Total Protein (6.5-8.0) g/dL Albumin (3.5-5.0) g/dL Ethyl Alcohol mg/dL COVID-19 (TYE) Negative (Negative) COVID-19 Clin Com See Note Influenza Type A (CAROL ANN) Negative (Negative) Influenza Type B (CAROL ANN) Negative (Negative) Influenza A & B Note See Note Radiology Impression Discussion of test interpretation with radiology: I have reviewed the radiologist's reading. Radiologist Impression: CT/CT chest wo IV con IMPRESSION: *? No acute pulmonary parenchymal abnormalities. *? 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 Stable patchy and more coalescent airspace opacities in the left lower lobe, and to lesser extent right lower lobe could be compatible with a superimposed multifocal pneumonia. *? Stable cardiomegaly. *? Reactive mediastinal and bilateral hilar lymph nodes are slightly smaller than on the prior examination. Discharge Plan Discharge Clinical Impression: Pneumonia, Alcoholic Patient Disposition: Admitted As Inpatient
[2022-09-01] MEDS: Amoxicillin/Potassium Clav 875 MG TABLET PO (04:18)
[2022-09-01 05:30] LABS: MANUAL DIFF FLAG NO
[2022-09-01 05:31] LABS: Basophils Percent Auto 0.3 % (0-2); Eosinophils Absolute Auto 0.1 X10*3/uL (0.0-0.4); Eosinophils Percent Auto 0.7 % (0-4); Hematocrit 35.3 % (42.0-52.0); Hemoglobin 11.6 g/dl (14.0-18.0); Imm Gran Abs Auto 0.33 X10*3/uL (0.00-0.03); Imm Gran Pct Auto 4.9 % (0.0-0.4); Lymphocytes Absolute Auto 1.3 X10*3/uL (1.2-4.9); Lymphocytes Percent Auto 19.3 % (20-40); Mean Corpuscular HGB Conc 32.9 g/dl (31.0-36.0); Mean Corpuscular Hemoglobin 29.9 pg (27.0-33.0); Mean Platelet Volume 10.1 fL (9.4-12.4); Monocytes Absolute Auto 0.7 X10*3/uL (0.1-1.2); Neutrophils Absolute Auto 4.4 x10*3/uL (2.0-8.3); Neutrophils Percent Auto 64.8 % (45-73); Platelet Count 243 X10*3/uL (160-400); Red Blood Count 3.88 X10*6/uL (4.60-5.80); Red Cell Distribution Width 14.8 % (11.0-16.0); White Blood Count 6.8 X10*3/uL (4.8-10.8)
[2022-09-01 05:42] LABS: Lactic Acid 1.7 mmol/L (0.5-2.0)
[2022-09-01 05:44] LABS: COVID-19 Test Negative (Negative); IDNOW Serial# BCCEAD1C
[2022-09-01 05:47] LABS: IDNOW Serial# 16C4AD1C; Influenza A Negative (Negative); Influenza B2 Negative (Negative)
[2022-09-01 05:50] LABS: Alanine Aminotransferase 25 U/L (0-40); Albumin Level 3.1 g/dL (3.5-5.0); Alkaline Phosphatase 64 U/L (39-117); Anion Gap 10 (12-20); Aspartate Amino Transferase 24 U/L (5-37); Bilirubin Total 0.2 mg/dL (0.0-1.0); Blood Urea Nitrogen 16 mg/dL (9-16); Calcium 7.6 mg/dL (8.4-10.2); Carbon Dioxide 30 mmol/L (22-29); Chloride 107 mmol/L (96-108); Creatinine Clr Calc Pharmacy 114.6; Estimated Glomerular Filt Rate > 60; Ethanol 46 mg/dL; Glucose Random 111 mg/dL (60-115); Magnesium 2.1 mg/dL (1.6-2.6); Potassium 3.4 mmol/L (3.3-5.1); Sodium 144 mmol/L (135-145)
[2022-09-01] MEDS: Ampicillin Sodium/Sulbactam Na 3 GM in 0.9 % Sodium Chloride 100 ML IV ×2 (06:05→11:00)
[2022-09-01 06:06] VITALS: BP 138/88; PULSE 82; RESP 16; TEMP 37.1; O2SAT 95
--- NOTE | 2022-09-01 06:16 | PC.NURSE ---
Pt awake and alert, calm and cooperative. Denies any pain. Reports sore throat and states he wants detox for alcohol misuse. Pt states last drink was one hour prior to arrival. Lung sounds crackles, RR 20. o2 sat 95% on RA, non-labored equal, lung expansions. IV line placed, blood work collected and sent to lab.
--- NOTE | 2022-09-01 07:26 | PHA.MEDREC ---
Pharmacy Consult ? Medication Reconciliation Pharmacy has completed the medication reconciliation.
[2022-09-01 07:27] VITALS: BP 150/92; PULSE 86; RESP 14; TEMP 36.5; O2SAT 95
--- NOTE | 2022-09-01 07:35 | PC.NURSE ---
Pharmacy called about antibiotic. Pharmacy stating they will be mixing the antibiotic that is due for 0800.
[2022-09-01] MEDS: Enoxaparin Sodium 40 MG/0.4 ML SYRINGE SUBCUT (08:01)
[2022-09-01] MEDS: Folic Acid 1 MG TABLET PO (08:02)
[2022-09-01] MEDS: Lactated Ringers 1,000 ML 100 ML IVCONT (08:02)
[2022-09-01] MEDS: vancomycin HCL 1,000 MG, vancomycin HCL 750 MG in 0.9 % Sodium Chloride 500 ML 267.5 MG IV (08:40)
--- NOTE | 2022-09-01 09:03 | PHA.PROG ---
Admission Date/Time: September 01, 2022 07:33 Indication: respiratory Weight in k.575 kg Adjusted body weight in Kg: [place] body weight in Kg: Obesity Dosing Indication % IBW: Serum Creatinine - Last 168 Hours 09/01/22 05:23 Creatinine 0.68 Estimated CrCl and GFR - Last 168 Hours 09/01/22 05:23 Estim Creat Clear Calc 114.6 Estimated GFR > 60 Vancomycin Loading Dose: 1750mg x 1 Current Vancomycin Dosing Regimen: 1000mg Q12H Vancomycin Monitoring using AUC goal of 400 - 600 range with trough as surrogate marker: 416mg/L Date and Time for next Vancomycin Level to be drawn: 09/02/22 @1900 Pharmacist Comments on Vancomycin Plan: Vancomycin dosing will take advantage of [employer] as a clinical decision support tool that uses Bayesian modeling to calculate individual patient's pharmacokinetic parameters and forecast the patient's drug concentration time course with the target goal AUC 24 range of 400 - 600 mg/L/hr.
--- NOTE | 2022-09-01 09:23 | PC.NURSE ---
Attempt to call report x2
[2022-09-01 10:14] VITALS: BP 149/99; PULSE 81; RESP 20; TEMP 36.9; O2SAT 93
[2022-09-01] MEDS: Acetaminophen 325 MG TABLET 650 MG PO (10:50)
[2022-09-01 11:43] VITALS: BP 146/90; PULSE 79; RESP 20; TEMP 37.1; O2SAT 97
--- NOTE | 2022-09-01 12:25 | P.HPHOSP_ITS ---
History of Present Illness Date of Service: 09/01/22 Chief Complaint: Shortness of breath 52-year-old male recently discharged from [facility] with diagnosis of aspiration pneumonia returns to the ER with shortness of breath and feeling lousy. When queried, he states he left and drank a pt of vodka and 2 beers and passed out. He then awoke and presented to the ER. In the emergency room, chest x-ray essentially unchanged from previous. Patient somnolent but arousable 1 examined early a.m. Review of Systems Review of Systems: Denies chest pain Denies shortness of breath Denies nausea vomiting diarrhea Denies fever chills PMFSH Medical History ETOH abuse High cholesterol HTN (hypertension) Social History Household Members: None Housing: Homeless Do you presently have visiting nurse or other home services: No Alcohol intake: current Alcohol intake frequency: 3 or more drinks per day Alcohol type: beer and hard liquor Patient Tobacco Use Status: Never used Tobacco Use of substances other than those prescribed or required for medical reasons: No Advance Directives: No service: No Current occupational status: unemployed Meds Allergies Allergy/AdvReac Type Severity Reaction Status Date / Time clams Allergy Severe HIVES, Verified 08/27/22 02:35 DIFFICULTY BREATHING Active Medications: Current Medications Acetaminophen (Acetaminophen 325 Mg Tablet) 650 mg PO Q4H PRN PRN Reason: Headache Last Admin: 09/01/22 10:50 Dose: 650 mg Albuterol Sulfate (Albuterol Sulfate (0.083%) 2.5 Mg/3 Ml Vial.Neb) 2.5 mg INHALE Q4H PRN PRN Reason: Shortness Of Breath/Wheezing Enoxaparin Sodium (Enoxaparin Sodium 40 Mg/0.4 Ml Syringe) 40 mg SUBCUT Q24H [facility] Last Admin: 09/01/22 08:01 Dose: 40 mg Folic Acid (Folic Acid 1 Mg Tablet) 1 mg PO DAILY NOBLE Last Admin: 09/01/22 08:02 Dose: 1 mg Lactated Ringer's (Lr) 1,000 mls @ 100 mls/hr IVCONT .Q10H [facility] Last Infusion: 09/01/22 11:34 Dose: 100 mls/hr Ampicillin Sodium/Sulbactam (Sodium 3 gm/ Sodium Chloride) 100 mls @ 200 mls/hr IV Q6H [facility] Last Infusion: 09/01/22 11:32 Dose: Infused Vancomycin HCl 1,000 mg/ (Sodium Chloride) 270 mls @ 270 mls/hr IV Q12H [facility] Pharmacy Consult (Consult Rx Vancomycin Dosing) 1 each MISCELLANE DAILY PRN PRN Reason: Consult order Sodium Chloride (0.9 % Sodium Chloride Flush 3 Ml Syringe) 3 ml IVFLUSH QSHIFT [facility] Last Admin: 09/01/22 08:02 Dose: Not Given Physical Exam Vital Signs and Narrative: Vital Signs: Last Vital Signs Temp 98.8 F 09/01/22 11:43 Pulse 79 09/01/22 11:43 Resp 20 09/01/22 11:43 BP 146/90 H 09/01/22 11:43 Pulse Ox 97 09/01/22 11:43 O2 Del Method 09/01/22 11:43 BMI result Body Mass Index 25.8 Const: Other: Somnolent but arousable unkempt lying quietly in bed Resp: Other: Clear but diminished lower santos Cardio: Other: No S4; positive S1-S2; no S3 murmurs rubs or gallops GI: Other: Soft nontender nondistended normoactive bowel sounds Neuro: Other: Cranial nerves 2-12 grossly intact as tested. Motor is 5/5 all extremities. Sensory intact. Cognition appropriate Extrem: Other: No edema bilaterally Results Labs 09/01/22 05:23 09/01/22 05:23 Labs: Laboratory Results - last 24 hr 09/01/22 09/01/22 09/01/22 05:23 05:23 05:23 MCV 91.0 MCH 29.9 MCHC 32.9 RDW 14.8 Plt Count 243 MPV 10.1 Immature Gran % (Auto) 4.9 H Neut % (Auto) 64.8 Lymph % (Auto) 19.3 L [place] % (Auto) 10.0 Eos % (Auto) 0.7 Baso % (Auto) 0.3 Lymph # (Auto) 1.3 [place] # (Auto) 0.7 Eos # (Auto) 0.1 Baso # (Auto) 0.0 Abs Immat Gran (auto) 0.33 H Absolute Neuts (auto) 4.4 Absolute Nucleated RBC 0.000 Nucleated RBC % (auto) 0.0 Anion Gap 10 L Estim Creat Clear Calc 114.6 Estimated GFR > 60 Random Glucose 111 Lactic Acid 1.7 Calcium 7.6 L Magnesium 2.1 Total Bilirubin 0.2 AST 24 ALT 25 Alkaline Phosphatase 64 Total Protein 6.0 L Albumin 3.1 L Ethyl Alcohol 46 COVID-19 (TYE) COVID-19 Clin Com Influenza Type A (CAROL ANN) Influenza Type B (CAROL ANN) Influenza A & B Note 09/01/22 09/01/22 05:23 05:23 MCV MCH MCHC RDW Plt Count MPV Immature Gran % (Auto) Neut % (Auto) Lymph % (Auto) [place] % (Auto) Eos % (Auto) Baso % (Auto) Lymph # (Auto) [place] # (Auto) Eos # (Auto) Baso # (Auto) Abs Immat Gran (auto) Absolute Neuts (auto) Absolute Nucleated RBC Nucleated RBC % (auto) Anion Gap Estim Creat Clear Calc Estimated GFR Random Glucose Lactic Acid Calcium Magnesium Total Bilirubin AST ALT Alkaline Phosphatase Total Protein Albumin Ethyl Alcohol COVID-19 (TYE) Negative COVID-19 Clin Com See Note Influenza Type A (CAROL ANN) Negative Influenza Type B (CAROL ANN) Negative Influenza A & B Note See Note Imaging Radiologist's Impressions: Impressions Chest X-Ray 09/01/22 04:30 IMPRESSION: * Diffuse bilateral airspace opacities appear slightly worse in the left lower lung. * Pulmonary venous congestion without overt edema. Chest CT 09/01/22 05:55 IMPRESSION: * No acute pulmonary parenchymal abnormalities. 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 Stable patchy and more coalescent airspace opacities in the left lower lobe, and to lesser extent right lower lobe could be compatible with a superimposed multifocal pneumonia. * Stable cardiomegaly. * Reactive mediastinal and bilateral hilar lymph nodes are slightly smaller than on the prior examination. Assessment and Plan (1) Pneumonia: Status: Acute (2) ETOH abuse: Status: Acute Plan Patient alcoholic history of high cholesterol and hypertension was admitted here on 08/26 for aspiration pneumonia discharge yesterday comes back as he is not feeling good patient few drinks prior to arrival.? Patient been coughing afebrile on arrival saturating 94% on room air 1. Aspiration pneumonia - given vancomycin in the ER. Unasyn pending -no oxygen requirement at this time 2. Alcohol abuse -ongoing -observe on CIWA Lovenox Full Code Time Spent With Patient Time: Total time managing care of this patient today ____ minutes. Quality Stroke Does the patient have a stroke diagnosis?: No VTE Prior VTE?: No VTE Risk Level:: Medical - moderate - high VTE Device Contraindication: Treatment Not Indicated VTE Drug Contraindication: N/A - Med Ordered
--- NOTE | 2022-09-01 12:30 | P.DS_ITS ---
DS: Providers Provider Date of Service: 09/01/22 Date of admission: 09/01/22 07:33 Date of discharge: 09/01/22 Primary care physician: [facility] DS: Diagnosis Discharge Diagnosis (1) Pneumonia: Status: Acute (2) ETOH abuse: Status: Acute DS: Summary Hospital Course Hospital Course: 52-year-old male recently discharged (yesterday) from [facility] with diagnosis of aspiration pneumonia. Patient states he left, went to backed store and subsequently drank a pt of vodka and 2 beers. He states this a.m. he felt lousy and slightly short of breath so he came to hospital. ER workup essentially unremarkable without acute changes from discharge. Currently he has no white count or oxygen requirement; he states he has a place to go and wishes to be discharged. He will be discharged on Augmentin and prednisone taper Time Spent with Patient Time attestation: Total time managing care of this patient today ____ minutes. Discharge coordination time: Greater than 30 minutes Quality: Safe Use of Opioids Does Pt have an Active Cancer Diagnosis on the Problem List?: No Quality: Stroke Does the patient have a stroke diagnosis?: No Physical Exam Vital Signs: Vital Signs: Last Vital Signs Temp 98.8 F 09/01/22 11:43 Pulse 79 09/01/22 11:43 Resp 20 09/01/22 11:43 BP 146/90 H 09/01/22 11:43 Pulse Ox 97 09/01/22 11:43 O2 Del Method 09/01/22 11:43 BMI result Body Mass Index 25.8 Const: Other: Somnolent but arousable unkempt lying quietly in bed Resp: Other: Clear but diminished lower santos Cardio: Other: No S4; positive S1-S2; no S3 murmurs rubs or gallops GI: Other: Soft nontender nondistended normoactive bowel sounds Neuro: Other: Cranial nerves 2-12 grossly intact as tested. Motor is 5/5 all extremities. Sensory intact. Cognition appropriate Extrem: Other: No edema bilaterally DS: Data Data Completed and Pending Completed studies during hospitalization [Text1]: Procedures Detoxification Services for Substance Abuse Treatment (06/30/21) Labs on day of discharge: Laboratory Results - last 24 hr 09/01/22 09/01/22 09/01/22 05:23 05:23 05:23 WBC 6.8 RBC 3.88 L Hgb 11.6 L Hct 35.3 L MCV 91.0 MCH 29.9 MCHC 32.9 RDW 14.8 Plt Count 243 MPV 10.1 Immature Gran % (Auto) 4.9 H Neut % (Auto) 64.8 Lymph % (Auto) 19.3 L [place] % (Auto) 10.0 Eos % (Auto) 0.7 Baso % (Auto) 0.3 Lymph # (Auto) 1.3 [place] # (Auto) 0.7 Eos # (Auto) 0.1 Baso # (Auto) 0.0 Abs Immat Gran (auto) 0.33 H Absolute Neuts (auto) 4.4 Absolute Nucleated RBC 0.000 Nucleated RBC % (auto) 0.0 Sodium 144 Potassium 3.4 D Chloride 107 Carbon Dioxide 30 H Anion Gap 10 L BUN 16 Creatinine 0.68 Estim Creat Clear Calc 114.6 Estimated GFR > 60 Random Glucose 111 Lactic Acid 1.7 Calcium 7.6 L Magnesium 2.1 Total Bilirubin 0.2 AST 24 ALT 25 Alkaline Phosphatase 64 Total Protein 6.0 L Albumin 3.1 L Ethyl Alcohol 46 COVID-19 (TYE) COVID-19 Clin Com Influenza Type A (CAROL ANN) Influenza Type B (CAROL ANN) Influenza A & B Note 09/01/22 09/01/22 05:23 05:23 WBC RBC Hgb Hct MCV MCH MCHC RDW Plt Count MPV Immature Gran % (Auto) Neut % (Auto) Lymph % (Auto) [place] % (Auto) Eos % (Auto) Baso % (Auto) Lymph # (Auto) [place] # (Auto) Eos # (Auto) Baso # (Auto) Abs Immat Gran (auto) Absolute Neuts (auto) Absolute Nucleated RBC Nucleated RBC % (auto) Sodium Potassium Chloride Carbon Dioxide Anion Gap BUN Creatinine Estim Creat Clear Calc Estimated GFR Random Glucose Lactic Acid Calcium Magnesium Total Bilirubin AST ALT Alkaline Phosphatase Total Protein Albumin Ethyl Alcohol COVID-19 (TYE) Negative COVID-19 Clin Com See Note Influenza Type A (CAROL ANN) Negative Influenza Type B (CAROL ANN) Negative Influenza A & B Note See Note Discharge Plan Discharge Anticipated Discharge Date/Time: 09/01/22 12:34 Patient Disposition: Home, Self-Care Discharge Diagnosis: Aspiration pneumonia Referrals: [facility] [Primary Care Provider] - 1 Week Discharge Medications: Continued folic acid 1 mg Tablet 1 mg PO DAILY Qty: 30 0RF amoxicillin-pot clavulanate 875-125 mg tablet 1 tab PO BID Qty: 20 0RF prednisone 10 mg tablet See Rx Instructions .Route .COMPLEX Qty: 45 0RF Rx Instructions: 10 mg orally; 5 tabs p.o. daily x3 days; 4 tabs p.o. daily x3 days; 3 tabs daily x3 days; 2 tabs daily x3 days; 1 tab daily x3 days Discontinued albuterol sulfate 2.5 mg /3 mL (0.083 %) Solution For Nebulization 2.5 mg inhalation Q4H PRN (Reason: Shortness Of Breath/Wheezing) Qty: 90 0RF Discharge Orders: Discharge Order (Routine); Ordered 09/01/22 Ordered By: Bladimir Coleman Diet: Advance to usual diet Activity on Discharge: As tolerated Stand Alone Forms: Patient Portal Discharge page Care Plan Goals: Complete course of Augmentin along with prednisone taper Health Concerns: Abstain from alcohol Plan of Treatment: Attempt to arrange new PCP follow-up 1 appointment available Assessment: See discharge summary
--- NOTE | 2022-09-01 13:02 | MHC.CM.PN ---
Addendum entered by Henna Sharma 09/01/22 13:50: PT LIVES WITH FRIEND IN AN APT. INDEPENDENT, USES [facility]ALK[facility] AT [facility]. +HCP ON FILE + COVID VAX X3. NO PCP, BROCHURE FOR HMG PROVIDED. Original Note: DP: PT HAS BEEN MEDICALLY CLEARED FOR DC HOME, NO SERVICES. RN AWARE. [facility] WILL TRANSPORT AT 2PM
== END 2022-09-01 13:48 | disposition home or self-care (01) | DRG 137 ==
LOC: HO.ED 07:18 → HO.EDOVER 07:40 → HO.IMC 08:11
PROVIDERS: Admitting Provider Hospitalist; Emergency Provider Internal Medicine; Visit Provider Hospitalist
DX: J69.0 Pneumonitis due to inhalation of food and vomit (principal); E78.00 Pure hypercholesterolemia, unspecified; F10.239 Alcohol dependence with withdrawal, unspecified; I10 Essential (primary) hypertension; Z20.822 Contact with and (suspected) exposure to COVID-19; Y90.2 Blood alcohol level of 40-59 mg/100 ml
CPT/HCPCS: 36415; 71045; 71250; 80053; 82077; 83605; 83735; 85025; 87040; 87502; 87635; 99285; J0295; J1650; J3370

== ENCOUNTER 2022-12-29 15:04 | Emergency (ER) | payer MEDICAID, SELFPAY ==
[2022-12-29 15:11] VITALS: BP 124/78; BP 130/92; PULSE 80; PULSE 85; RESP 18; TEMP 36.9; O2SAT 94; O2SAT 95; BMI 26.6
[2022-12-29 15:16] VITALS: RESP 18
[2022-12-29 16:18] VITALS: BP 106/77; PULSE 94; RESP 14; TEMP 36.6; O2SAT 94
--- NOTE | 2022-12-29 16:48 | ED.ALCOHOL ---
HPI - Alcohol General Chief Complaint: ETOH/Substance Use Stated Complaint: ETOH, foot pain, lac to head. fall? Time Seen by Provider: 12/29/22 16:04 Source: patient and other Mode of arrival: EMS History of Present Illness HPI narrative: 52-year-old male with alcohol use disorder is brought in by EMS after please called and report the patient was intoxicated and had been walking without his shoe on on the hot pavement. Patient is also noted to have fallen with a laceration of the back of the head but he denies any loss of consciousness and also denies any seizures or withdrawal symptoms. Related Data Previous Rx's Medication Instructions Recorded amoxicillin 875 mg-potassium 1 tab PO BID #20 tabs 08/31/22 clavulanate 125 mg tablet folic acid 1 mg tablet 1 mg PO DAILY #30 tabs 08/31/22 prednisone 10 mg tablet See Rx Instructions .Route 08/31/22 .COMPLEX #45 tabs Allergies Allergy/AdvReac Type Severity Reaction Status Date / Time clams Allergy Severe HIVES, Verified 12/29/22 15:15 DIFFICULTY BREATHING Review of Systems Review of Systems: Pertinent positives and negatives as stated in HPI PMFSH Past Medical History Source: nursing notes reviewed Medical History ETOH abuse High cholesterol HTN (hypertension) Social History Social History Household Members: None Housing: Homeless Do you presently have visiting nurse or other home services: No Alcohol intake: current Alcohol intake frequency: 3 or more drinks per day Alcohol type: beer and hard liquor Patient Tobacco Use Status: Never used Tobacco Smoked in Last 30 Days: Yes Use of substances other than those prescribed or required for medical reasons: No Advance Directives: No Advance Directives Information Provided: No service: No Current occupational status: unemployed Physical Exam ED Vital Signs: Vital Signs - 24 hr 12/29/22 15:11 12/29/22 15:16 12/29/22 16:18 Temperature 98.4 F 97.9 F Pulse Rate 85 94 Respiratory Rate 18 18 14 Blood Pressure 130/92 H 106/77 Pulse Oximetry 94 94 Oxygen Delivery Method Room Air Room Air 12/29/22 18:19 12/29/22 21:13 Temperature 97.9 F Pulse Rate 90 98 Respiratory Rate 18 17 Blood Pressure 132/72 146/96 H Pulse Oximetry 98 95 Oxygen Delivery Method Room Air Room Air BMI result Body Mass Index 26.6 VITAL SIGNS: Reviewed. GENERAL: Chronically ill, poor hygiene, in no acute distress. HEAD: Normocephalic/contusions/superficial laceration to the scalp EYES: PERRLA, EOMI EARS: Ext canals without abnormality LUNGS: Normal breath sounds. No adventitious sounds or accessory muscle use. SpO2<94> CARDIOVASCULAR: Regular rate and rhythm without noted murmurs ABDOMEN: Soft, non-tender, non-distended with bowel sounds. MUSCULOSKELETAL: No tenderness, deformities, or effusions noted on gross inspection. EXTREMITIES: No cyanosis, clubbing or edema; obvious blistering to bilateral plantar surface of the feet, superficial abrasion to plantar surface of the left great toe. SKIN: Inspection of the skin reveals no rashes NEUROLOGIC: Alert and oriented x 4. Strength and sensation to light touch were grossly intact x 4 but noted difference when comparison of left to right which is at baseline consistent with patient's prior stroke history and residual left-sided weakness.. Medical Decision Making Medical Decision Making MDM Narrative: 52-year-old male with history and clinical presentation of alcohol intoxication and injuries secondary to patient's intoxication and poor judgment such as removing issues and walking on hot pavement and the contusion/laceration to the scalp. Both feet were cleaned extensively and applied bacitracin with dressing, there is only a superficial abrasion to the posterior scalp, patient is otherwise nonfocal. Patient is otherwise clinically ambulating with steady gait at baseline, he is tolerating oral intake, and is stable for discharge. Differential Diagnosis Alcohol intoxication, 1st/second-degree ennis to bilateral feet. Medications Administered Discontinued Medications Generic Name Dose Route Start Last Admin Trade Name Freq PRN Reason Stop Dose Admin Bacitracin 1 appl 12/29/22 16:20 12/29/22 17:11 Bacitracin Oint 0.9 Gm Packet TOPICAL 12/29/22 16:21 1 appl ONCE ONE Administration Protocol Discharge Plan Discharge Clinical Impression: First degree burn of left foot, First degree burn of right foot Patient Disposition: Home, Self-Care Instructions: High Protein Diet (ED), Superficial Burn (ED) Additional Instructions: 1. Please keep your feet clean and dry, use antibiotic ointment for the bottom of your feet. Return to the hospital for any worsening symptoms. Prescriptions: No Action folic acid 1 mg Tablet 1 mg PO DAILY Qty: 30 0RF amoxicillin-pot clavulanate 875-125 mg tablet 1 tab PO BID Qty: 20 0RF prednisone 10 mg tablet See Rx Instructions .Route .COMPLEX Qty: 45 0RF Rx Instructions: 10 mg orally; 5 tabs p.o. daily x3 days; 4 tabs p.o. daily x3 days; 3 tabs daily x3 days; 2 tabs daily x3 days; 1 tab daily x3 days Referrals: [facility] [Primary Care Provider] -
--- NOTE | 2022-12-29 17:05 | MHC.EDTECH ---
this pct assisted provider wrapping left toe and both feet after blisters were lanced and bacitracin ointment was applied at the request of the provider RN AWARE
[2022-12-29 18:19] VITALS: BP 132/72; PULSE 90; RESP 18; O2SAT 98
[2022-12-29 21:13] VITALS: BP 146/96; PULSE 98; RESP 17; TEMP 36.6; O2SAT 95
--- NOTE | 2022-12-29 21:14 | MHC.EDTECH ---
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
== END 2022-12-29 22:40 | disposition home or self-care (01) ==
PROVIDERS: Emergency Provider Student in an Organized Health Care Education/Training Program
DX: F10.10 Alcohol abuse, uncomplicated (principal); Y90.9 Presence of alcohol in blood, level not specified; S00.01XA Abrasion of scalp, initial encounter; W19.XXXA Unspecified fall, initial encounter; T25.122A Burn of first degree of left foot, initial encounter; T25.121A Burn of first degree of right foot, initial encounter; X19.XXXA Contact with other heat and hot substances, initial encounter; Y93.01 Activity, walking, marching and hiking; Y92.480 Sidewalk as the place of occurrence of the external cause; Y99.9 Unspecified external cause status
CPT/HCPCS: 16000; 99283; 99285

== ENCOUNTER 2023-01-05 21:46 | Emergency (ER) | payer MEDICAID, SELFPAY ==
[2023-01-05 21:52] VITALS: BP 116/84; PULSE 90; O2SAT 96
--- NOTE | 2023-01-05 22:16 | ED.ALCOHOL ---
HPI - Alcohol General Chief Complaint: ETOH/Substance Use Stated Complaint: ETOH, FOOT PAIN Time Seen by Provider: 01/05/23 22:06 Source: patient Mode of arrival: EMS History of Present Illness HPI narrative: 52-year-old male with known alcohol use disorders brought in by EMS. Patient is complaining of his feet, which I evaluated and treated at his last visit. He has no complaints of fever, chills, nausea, vomiting, abdominal pain or difficulty breathing. Related Data Previous Rx's Medication Instructions Recorded amoxicillin 875 mg-potassium 1 tab PO BID #20 tabs 08/31/22 clavulanate 125 mg tablet folic acid 1 mg tablet 1 mg PO DAILY #30 tabs 08/31/22 prednisone 10 mg tablet See Rx Instructions .Route 08/31/22 .COMPLEX #45 tabs Allergies Allergy/AdvReac Type Severity Reaction Status Date / Time clams Allergy Severe HIVES, Verified 12/29/22 15:15 DIFFICULTY BREATHING Review of Systems Review of Systems: Pertinent positives and negatives as stated in HPI [facility] Past Medical History Source: nursing notes reviewed Medical History ETOH abuse High cholesterol HTN (hypertension) Social History Social History Household Members: None Housing: Homeless Do you presently have visiting nurse or other home services: No Alcohol intake: current Alcohol intake frequency: 3 or more drinks per day Alcohol type: beer and hard liquor Patient Tobacco Use Status: Never used Tobacco Advance Directives: No Advance Directives Information Provided: No service: No Current occupational status: unemployed Physical Exam ED Vital Signs: Vital Signs - 24 hr 01/05/23 22:50 Temperature 98.4 F Pulse Rate 89 Respiratory Rate 18 Blood Pressure 109/79 Pulse Oximetry 95 Oxygen Delivery Method Room Air BMI result Body Mass Index 25.1 VITAL SIGNS: Reviewed. GENERAL: Appears older than stated age, in no acute distress. HEAD: Normocephalic/atraumatic EYES: PERRLA, EOMI EARS: Ext canals without abnormality LUNGS: Normal breath sounds. No adventitious sounds or accessory muscle use. CARDIOVASCULAR: Regular rate and rhythm without noted murmurs ABDOMEN: Soft, non-tender, non-distended with bowel sounds. MUSCULOSKELETAL: No tenderness, deformities, or effusions noted on gross inspection. EXTREMITIES: No cyanosis, clubbing or edema; BILATERAL FEET: Appear to be healing well SKIN: Inspection of the skin reveals no rashes NEUROLOGIC: Alert and oriented x 4. Strength and sensation to light touch were grossly intact x 4. Medical Decision Making Medical Decision Making [facility] Narrative: 52-year-old male with alcohol intoxication as well as alcohol use disorder, no medical complaints at this time and will be observed here in the emergency room until clinically/medically sober. Will re-dress the feet. Patient placed in physician observation because the patient needed more time for sobriety. At the time observation was started the patient's vital signs were stable, patient is alert and oriented, neuro: Nonfocal, CV RRR, lungs clear Physician observation has now ended, patient's BAL by calculation is less than 100 and he is otherwise discharged to the waiting area. Lab Data Please see the discussion above Labs: Lab Results 01/05/23 Range/Units 22:42 Ethyl Alcohol 174 mg/dL Discharge Plan Discharge Clinical Impression: ETOH abuse, Alcoholic intoxication Patient Disposition: Home, Self-Care Instructions: Alcohol Intoxication (ED), Alcohol Use Disorder (ED) Additional Instructions: 1. Resume all home medications as prescribed. 2. Follow-up with your primary care provider. Return to the ER for any worsening symptoms. Prescriptions: No Action folic acid 1 mg Tablet 1 mg PO DAILY Qty: 30 0RF amoxicillin-pot clavulanate 875-125 mg tablet 1 tab PO BID Qty: 20 0RF prednisone 10 mg tablet See Rx Instructions .Route .COMPLEX Qty: 45 0RF Rx Instructions: 10 mg orally; 5 tabs p.o. daily x3 days; 4 tabs p.o. daily x3 days; 3 tabs daily x3 days; 2 tabs daily x3 days; 1 tab daily x3 days
[2023-01-05 22:50] VITALS: BP 109/79; PULSE 89; RESP 18; TEMP 36.9; O2SAT 95; BMI 25.1
[2023-01-05 23:00] LABS: Ethanol 174 mg/dL
[2023-01-06 06:06] VITALS: BP 136/84; PULSE 98; RESP 18; TEMP 36.7; O2SAT 100
--- NOTE | 2023-01-06 06:06 | PC.NURSE ---
pt A&Ox4 provided with food and drink and coffee prior to discharge
== END 2023-01-06 06:14 | disposition home or self-care (01) ==
PROVIDERS: Emergency Provider Student in an Organized Health Care Education/Training Program
DX: M79.671 Pain in right foot (principal); M79.672 Pain in left foot; F10.129 Alcohol abuse with intoxication, unspecified; Y90.6 Blood alcohol level of 120-199 mg/100 ml; Z79.899 Other long term (current) drug therapy
CPT/HCPCS: 36415; 80307; 99283; 99284

== ENCOUNTER 2023-01-11 13:23 | Emergency (ER) | payer MEDICAID, SELFPAY ==
--- NOTE | 2023-01-11 13:27 | ED_ITS ---
HPI - General Adult General Chief complaint: Wound/Laceration Stated complaint: [place] on feet. open wounds feet & ankles Time Seen by Provider: 01/11/23 13:27 Source: patient and EMS Mode of arrival: EMS Limitations: no limitations History of Present Illness HPI narrative: Patient is a 52 year old assigned male at with a history of alcohol abuse presenting to the emergency department today for evaluation of his foot wounds. Patient states that burned the bottom of his feet on 12/29/2022, was seen here and treated, however, he has not removed the bandages since then. Patient states that he continues to walk on hot pavement, barefoot, with just the bandages present. Patient denies any dizziness, lightheadedness, abdominal pain, nausea, vomiting, fever, chills, blurry vision, double vision, loss of vision, chest pain, difficulty breathing, shortness of breath, back pain, night sweats, pain with urination, increased urinary frequency, increased urinary urgency, blood in his urine or stool, syncope or a near syncopal episode, bowel incontinence, bladder incontinence, bowel retention, bladder retention, or any other complaints at this time. Onset (ago): week(s) Location: left, right and lower extremity Radiation: non-radiation Severity: mild Severity scale (1-10): 3 Pain Consistency: constant Relieving factors: none Exacerbating factors: none Associated symptoms: denies other symptoms Treatments prior to arrival: none Related Data Previous Rx's Medication Instructions Recorded amoxicillin 875 mg-potassium 1 tab PO BID #20 tabs 08/31/22 clavulanate 125 mg tablet folic acid 1 mg tablet 1 mg PO DAILY #30 tabs 08/31/22 prednisone 10 mg tablet See Rx Instructions .Route 08/31/22 .COMPLEX #45 tabs cephalexin 500 mg capsule 500 mg PO Q6H 7 days #28 caps 01/11/23 doxycycline hyclate 100 mg tablet 100 mg PO BID 7 days #14 tabs 01/11/23 Allergies Allergy/AdvReac Type Severity Reaction Status Date / Time clams Allergy Severe HIVES, Verified 01/11/23 13:54 DIFFICULTY BREATHING Review of Systems Constitutional: Constitutional: Reports no additional constitutional complaints, Denies chills, Denies fever(s) and Denies night sweats Eyes: Eyes: Reports no additional eye complaints, Denies blurry vision, Denies change in vision, Denies diplopia, Denies eye discharge, Denies loss of vision and Denies eye pain ENT: Denies dizziness Cardiovascular: Cardiovascular: Reports no additional cardiovascular complaints, Denies chest pain, Denies lightheadedness, Denies Loss of Consciousness and Denies dyspnea Respiratory: Respiratory: Reports no additional respiratory complaints and Denies dyspnea Gastrointestinal: Gastrointestinal: Reports no additional gastrointestinal complaints, Denies abdominal pain, Denies melena, Denies hematochezia, Denies change in bowel habits and Denies change in stool character Genitourinary: Genitourinary: Reports no additional male genitourinary complaints, Denies hematuria, Denies oliguria, Denies difficulty urinating, Denies dysuria, Denies urinary frequency, Denies urinary hesitancy, Denies u rinary incontinence and Denies urinary urgency Musculoskeletal: Musculoskeletal: Reports no additional musculoskeletal complaints, Denies numbness and Denies tingling Integumentary/Breasts: Comments: wounds on bilateral feet Neurologic: Denies dizziness, Denies loss of vision, Denies numbness and Denies tingling Psychiatric: Psychiatric: Reports no additional psychiatric complaints Endocrine: Endocrine: Reports no additional endocrine complaints Hematologic/Lymphatic: Hematologic/Lymphatic: Reports no additional hematologic/lymphatic complaints Allergic/Immunologic: Allergic/Immunologic: Reports no additional donnie rgic/immunologic complaints [facility] Past Medical History Attestation statement: The following information was validated with the patient. Source: old records reviewed, nursing notes reviewed and other (EMS provided additional history and confirmed the history provided by the patient.) Medical History ETOH abuse High cholesterol HTN (hypertension) Social History Social History Household Members: None Housing: Homeless Do you presently have visiting nurse or other home services: No Alcohol intake: current Alcohol intake frequency: 3 or more drinks per day Alcohol type: beer Patient Tobacco Use Status: Never used Tobacco Smoked in Last 30 Days: No Use of substances other than those prescribed or required for medical reasons: No Advance Directives: No Advance Directives Information Provided: No service: No Current occupational status: unemployed Physical Exam ED Vital Signs: Vital Signs - 24 hr 01/11/23 13:41 01/11/23 14:08 Temperature 97.8 F 97.1 F Pulse Rate 96 98 Respiratory Rate 18 16 Blood Pressure 106/70 106/70 Pulse Oximetry 97 97 Oxygen Delivery Method Room Air Room Air BMI result Body Mass Index 27.4 Const General: cooperative, no acute distress, alert and awake Nutritional Appearance: well nourished Orientation/consciousness: patient oriented x3 Limitations: no limitations HENMT Head: Yes normal to inspection and Yes atraumatic Ears: hearing grossly normal bilaterally and external ears normal General nose exam: Normal external nose present, no nasal discharge noted and no epistaxis Face and sinus: Yes normal facial exam, No abrasion and No laceration Mouth: Normal oral and palatal mucosa present, no drooling and no muffled voice Eyes General: appearance normal, both eyes and all related structures Periorbital: periorbital findings normal Eyelids: Yes eyelids normal Conjunctivae: conjunctivae normal Pupils: Equal, round and reactive pupils present EOM: EOMs intact bilaterally Neck Neck: Yes normal visual inspection, Yes full ROM and Yes no lymphadenopathy Chest Chest palpation & inspection: normal inspection of the chest Resp Effort & Inspection: normal respiratory effort and able to speak in complete sentences GI Inspection: Yes normal to inspection Skin Other: Neuro General: patient oriented x3 and moves all extremities Cranial nerves: Yes Equal, round and reactive pupils present Cognition (Neuro): normal cognition Motor exam (neuro): 5/5 motor strength present throughout Sensory Exam: Normal double simultaneous stimulation for sensation Coordination: [id number] test normal Extrem General: Yes full ROM and Yes capillary refill normal Psych Appearance: grossly normal Mental Status: mental status grossly normal Affect: normal affect Attitude: cooperative Thought process: Normal thought process present Thought content: Normal thought content present Insight: Good insight present (Psych) Medications Administered Discontinued Medications Generic Name Dose Route Start Last Admin Trade Name Freq PRN Reason Stop Dose Admin Cephalexin HCl 500 mg 01/11/23 13:34 01/11/23 14:36 Cephalexin 500 Mg Capsule PO 01/11/23 13:35 500 mg ONCE ONE Administration Doxycycline Monohydrate 100 mg 01/11/23 13:34 01/11/23 14:37 Doxycycline Monohydrate 100 Mg Capsule PO 01/11/23 13:35 100 mg ONCE ONE Administration Procedures Procedure Narrative Procedure Narrative: patients foot wounds were dressed with non-adherent dressing and loose gauze, without incident. Patient's PMS in both feet were intact prior to and after dressing placement. Medical Decision Making Medical Decision Making MDM Narrative: Patient is a 52 year old assigned male at with a history of alcohol abuse presenting to the emergency department today with bilateral foot wound evaluation. Patient's physical exam was as noted in the physical exam portion of this chart. Patient's left toe wound appears to be healing well. The patient's right heel wound appears to have mild surrounding cellulitis, will treat with antibiotics and provide the patient his first dose while in the department. I explained my physical exam findings to the patient. I answered all questions asked by the patient. Patient was given the first dose of his PO antibiotics and his wounds were re-wrapped with non-adherent dressing and loose gauze wrap. I stressed the importance of the patient taking his medication as prescribed. I stressed the importance of the patient following up with his primary care provider and the wound center. I stressed the importance of the patient returning to the emergency department immediately if his symptoms were to worsen or if he were to develop any dizziness, shortness of breath, difficulty breathing, chest pain, blurry vision, loss of vision, nausea, vomiting, abdominal pain, fever, chills, back pain, or any other complaints. Patient verbalized agreement and understanding with this treatment plan and discharge. Differential Diagnosis Differential Diagnoses: The differential diagnosis associated with the prese ntation includes Chronic wound Healing wound Cellulitis Alcoholism Independent Historian Clinical information obtained from an independent historian. History obtained from or confirmed by: EMS (EMS provided additional history and confirmed the history provided by the patient.) External Record Review External record reviewed: Other (reviewed all previous ED visit notes.) Prescription Management I considered prescription management with: Antibiotic (patient prescribed antibiotics) Chronic Conditions Patient?s care impacted by: Other (alcoholism) Social Determinants Patient?s care significantly limited by Social Determinants of Health including: Inadequate housing (patient is homeless) and Other Social Determinant of Health (patient suffers from alcoholism.) Discharge Plan Discharge Clinical Impression: Wound of foot Patient Disposition: Home, Self-Care Instructions: Wound Infection (DC), Wound Healing and Your Diet (ED) Additional Instructions: Follow up with your primary care provider and the wound center. Perform daily wound checks and dressing changes. WEAR YOUR SHOES WHEN WALKING OUTSIDE. Return to the emergency department immediately if your symptoms worsen or if you develop any dizziness, shortness of breath, difficulty breathing, chest pain, blurry vision, loss of vision, nausea, vomiting, abdominal pain, fever, chills, back pain, or any other complaints. Prescriptions: New cephalexin 500 mg capsule 500 mg PO Q6H 7 Days Qty: 28 0RF doxycycline hyclate 100 mg tablet 100 mg PO BID 7 Days Qty: 14 0RF No Action folic acid 1 mg Tablet 1 mg PO DAILY Qty: 30 0RF amoxicillin-pot clavulanate 875-125 mg tablet 1 tab PO BID Qty: 20 0RF prednisone 10 mg tablet See Rx Instructions .Route .COMPLEX Qty: 45 0RF Rx Instructions: 10 mg orally; 5 tabs p.o. daily x3 days; 4 tabs p.o. daily x3 days; 3 tabs daily x3 days; 2 tabs daily x3 days; 1 tab daily x3 days [place] [facility] [place] (Call to establish and follow up with a primary care provider. If you already have a primary care provider, please follo w up with them.) [facility] [place] (Call to establish and follow up with a primary care provider. If you already have a primary care provider, please follow up with them.) [facility] [place]] (Call to establish and follow up with a primary care provider. If you already have a primary care provider, please follow up with them.) [facility] [place] [facility] [place] (Call to establish and follow up with the wound center. ) Interventions: ED Discharge Assessment Last Done: 01/11/23 14:51 Discharge Date/Time: 01/11/23 14:51 Print Language: Swedish
[2023-01-11 13:39] VITALS: BP 134/88; PULSE 113; O2SAT 95
[2023-01-11 13:41] VITALS: BP 106/70; PULSE 96; RESP 18; TEMP 36.6; O2SAT 97; BMI 27.4
[2023-01-11 14:08] VITALS: BP 106/70; PULSE 98; RESP 16; TEMP 36.2; O2SAT 97
[2023-01-11] MEDS: cephALEXin 500 MG CAPSULE PO (14:36)
[2023-01-11] MEDS: Doxycycline Monohydrate 100 MG CAPSULE PO (14:37)
--- NOTE | 2023-01-11 14:50 | PC.NURSE ---
aox4. calm, cooperative. wounds wrapped per pa agustina order. assisted to waiting room. pt able to walk and has shoes on
== END 2023-01-11 14:51 | disposition home or self-care (01) ==
PROVIDERS: Emergency Provider Emergency Medicine
DX: Z48.00 Encounter for change or removal of nonsurgical wound dressing (principal); S91.302D Unspecified open wound, left foot, subsequent encounter; X58.XXXD Exposure to other specified factors, subsequent encounter
CPT/HCPCS: 99283; 99284

== ENCOUNTER 2023-01-13 17:18 | Emergency (ER) | payer MEDICAID, SELFPAY ==
--- NOTE | ~2023-01-13 | CT_ITS ---
EXAMINATION: CT HEAD WITHOUT CONTRAST CT CERVICAL SPINE WITHOUT CONTRAST CLINICAL INFORMATION: Fall. COMPARISON: CT head and cervical spine 08/08/2022. TECHNIQUE: Contiguous axial imaging was performed from the skull base to vertex without intravenous administration of contrast. Contiguous axial imaging was performed from the upper chest through the skull base without intravenous administration of contrast. Coronal and sagittal reformats were obtained at the acquisition workstation. This CT examination was performed using dose optimization techniques as appropriate, variously including the following: *Automated exposure control *Adjustment of mA and/or kV according to patient size (this includes techniques or standardized protocols for targeted exams where dose is matched to indication/reason for exam; i.e. extremities or head) *Use of iterative reconstruction technique DLP: 726 and 393 mGy-cm FINDINGS: Head: There is no evidence of acute intracranial hemorrhage or edematous territorial infarction. A few foci of hypoattenuation in the periventricular and deep white matter are consistent with mild microangiopathy. Lemus-white matter differentiation is preserved. Proportional prominence of the ventricles and sulcal spaces. No evidence for obstructive hydrocephalus. No abnormal mass effect or midline shift. No extra-axial fluid collections. Stable prominent CSF space posterior to cerebellum. No significant soft tissue abnormality. No evidence of calvarial fracture. The mastoid air cells and paranasal sinuses are clear. Cervical Spine: No evidence of acute compression deformity or traumatic subluxation. Nonspecific straightening of the cervical lordosis. Mild to moderate multilevel cervical folliculosis. There is no prevertebral soft tissue swelling. The thyroid gland and remaining cervical soft tissues are normal in appearance. The lung apices demonstrate no abnormalities. CT/CT cervical spine wo IV con IMPRESSION: 1. No acute intracranial pathology. 2. No acute cervical spine fracture or malalignment.
[2023-01-13 17:22] VITALS: BP 140/90; PULSE 98; O2SAT 95
[2023-01-13 17:24] VITALS: BP 122/84; PULSE 88; RESP 18; TEMP 36.7; O2SAT 99; BMI 29.9
[2023-01-13 17:59] VITALS: BP 119/77; PULSE 79; RESP 19; TEMP 36.6; O2SAT 96
--- NOTE | 2023-01-13 19:42 | PC.NURSE ---
Assumed care for pt. Aox3, requesting assistance to use the restroom. Reports I can't walk to the bathroom, I am drunk. Assistance provided to the restroom. Reports bilateral pain, bilateral feet. Ct results wnl. Pending dispo. Will continue to monitor.
--- NOTE | 2023-01-13 20:46 | ED_ITS ---
HPI - Alcohol General Chief Complaint: ETOH/Substance Use Stated Complaint: ETOH Time Seen by Provider: 01/13/23 17:46 Source: patient Mode of arrival: EMS Limitations: no limitations History of Present Illness HPI narrative: Patient comes to the emergency room complaining of alcohol intoxication, fall and head strike. He denies loss of consciousness or being on blood thinners. Patient denied headaches nausea or vomiting. Patient admits to using alcohol Related Data Previous Rx's Medication Instructions Recorded amoxicillin 875 mg-potassium 1 tab PO BID #20 tabs 08/31/22 clavulanate 125 mg tablet folic acid 1 mg tablet 1 mg PO DAILY #30 tabs 08/31/22 prednisone 10 mg tablet See Rx Instructions .Route 08/31/22 .COMPLEX #45 tabs cephalexin 500 mg capsule 500 mg PO Q6H 7 days #28 caps 01/11/23 doxycycline hyclate 100 mg tablet 100 mg PO BID 7 days #14 tabs 01/11/23 Allergies Allergy/AdvReac Type Severity Reaction Status Date / Time clams Allergy Severe HIVES, Verified 01/11/23 13:54 DIFFICULTY BREATHING Review of Systems Review of Systems: Constitutional : No Weight loss, No Fever, No Chills, No Night Sweats, No Fatigue, No Malaise ENT/Mouth : No Hearing loss, No Ear Pain, No Nasal Congestion, No Sinus Pain, No Hoarseness, No sore throat, No Rhinorrhea, No Swallowing Difficulty Eyes: No Eye Pain, No Swelling, No Redness, No Foreign Body, No Discharge, No Vision Changes Cardiovascular : No Chest Pain, No SOB, No Dyspnea on Exertion, No Orthopnea, No Edema, No Palpitations Respiratory : No Cough, No Sputum, No Wheezing, No Smoke Exposure, No Dyspnea Gastrointestinal : No Nausea, No Vomiting, No Diarrhea, No Constipation, No abdominal Pain, No Hematochezia, No Melena Genitourinary : no irregular bleeding, No Dysuria, No Urinary Frequency, No Hematuria, No Urinary Incontinence, No Urgency, No Flank Pain, No Urinary Flow Changes, No Hesitancy Musculoskeletal : No joint pain, No Myalgias, No Joint Swelling Skin : No Skin Lesions, No rash Neuro : No Weakness, No Numbness, No Paresthesias, No Loss of Consciousness, No Dizziness, No Headache Psych : No Anxiety/Panic, No Depression, No SI/HI/AH/VH, admits to drinking alcohol Heme/Lymph: No Bruising, No Bleeding,No Lymphadenopathy Endocrine : No Polyuria, No Polydipsia, No Temperature Intolerance [facility] Past Medical History Medical History ETOH abuse High cholesterol HTN (hypertension) Social History Social History Household Members: None Housing: Homeless Do you presently have visiting nurse or other home services: No Alcohol intake: current Alcohol intake frequency: 3 or more drinks per day Alcohol type: beer Patient Tobacco Use Status: Never used Tobacco Advance Directives: No Advance Directives Information Provided: Yes service: No Current occupational status: unemployed Physical Exam ED Vital Signs: Vital Signs - 24 hr 01/13/23 17:24 01/13/23 17:59 Temperature 98.1 F 97.8 F Pulse Rate 88 79 Respiratory Rate 18 19 Blood Pressure 122/84 119/77 Pulse Oximetry 99 96 Oxygen Delivery Method Room Air Room Air BMI result Body Mass Index 29.9 Const Other: Appearance: Alert. Oriented X3. No acute distress. Intoxicated but coherent Eyes: Pupils equal, round and reactive to light. ENT: Pharynx normal. Neck: Normal inspection. Neck supple. No lymph nodes noted. No crepitus CVS: Normal heart rate and rhythm. Pulses normal. Normal S1 and S2 Respiratory: No respiratory distress. Breath sounds normal. No Wheezing. No rales Abdomen: Soft and nontender. No rigidity. No distention. Skin: Skin warm and dry. Normal skin color. Normal skin turgor. Extremities: No lower extremity edema. No Lacerations. No Rash Neuro: Oriented X 3. No motor deficit. No sensory deficit. Moving all extremities. No slurred speech. CN 2 through 12 grossly intact Psych: calm, cooperative, normal affect Medical Decision Making Medical Decision Making MDM Narrative: -my interpretation a head CT: No acute intracranial bleed. -plan: Metabolize to freedom -physician observation started at 20:40 Differential Diagnosis Differential Diagnoses: The differential diagnosis associated with the presentation includes (Alcohol intoxication, intracranial bleed, substance abuse) Admission/Observation Consideration of admission/observation: Escalation of care including admission /observation considered (Patient is under observation and will remain so in the emergency room until patient is clinically sober) Independent Interpretation I performed an independent interpretation of an: CT Scan Radiology Impression Discussion of test interpretation with radiology: I have reviewed the radiologist's reading. Radiologist Impression: FINDINGS: Head: There is no evidence of acute intracranial hemorrhage or edematous territorial infarction. A few foci of hypoattenuation in the periventricular and deep white matter are consistent with mild microangiopathy. Lemus-white matter differentiation is preserved. Proportional prominence of the ventricles and sulcal spaces. No evidence for obstructive hydrocephalus. No abnormal mass effect or midline shift. No extra-axial fluid collections. Stable prominent CSF space posterior to cerebellum. No significant soft tissue abnormality. No evidence of calvarial fracture. The mastoid air cells and paranasal sinuses are clear. Cervical Spine: No evidence of acute compression deformity or traumatic subluxation. Nonspecific straightening of the cervical lordosis. Mild to moderate multilevel cervical folliculosis. There is no prevertebral soft tissue swelling. The thyroid gland and remaining cervical soft tissues are normal in appearance. The lung apices demonstrate no abnormalities. CT/CT head/brain wo IV con IMPRESSION: 1.? No acute intracranial pathology. 2.? No acute cervical spine fracture or malalignment. ? Discharge Plan Discharge Clinical Impression: Alcohol intoxication Patient Disposition: Still a Patient Prescriptions: No Action folic acid 1 mg Tablet 1 mg PO DAILY Qty: 30 0RF amoxicillin-pot clavulanate 875-125 mg tablet 1 tab PO BID Qty: 20 0RF prednisone 10 mg tablet See Rx Instructions .Route .COMPLEX Qty: 45 0RF Rx Instructions: 10 mg orally; 5 tabs p.o. daily x3 days; 4 tabs p.o. daily x3 days; 3 tabs daily x3 days; 2 tabs daily x3 days; 1 tab daily x3 days cephalexin 500 mg capsule 500 mg PO Q6H 7 Days Qty: 28 0RF doxycycline hyclate 100 mg tablet 100 mg PO BID 7 Days Qty: 14 0RF
--- NOTE | 2023-01-13 21:46 | MHC.RECOVSUP ---
? Reason for consult:ETOH o? Current location:[facility]? o? Identified substance use concern:? -? Seeking ATS (detox) -? Support ? Intervention: o? ATS bed search started/completed/in process o? Community resources provided ? Plan: o? Bed search in progress to [facility] ? Additional information:Please follow up with [facility] about this pt completing an intake, in order for this pt to be admitted he needs to have a walker. Provider was informed.
[2023-01-14 03:14] VITALS: RESP 14
--- NOTE | 2023-01-14 03:15 | PC.NURSE ---
Pt sleeping at the bedside in no apparent distress. Breaths are even regular and unlabored with equal chest rises. Will continue to monitor.
[2023-01-14 04:18] VITALS: BP 143/96; PULSE 89; RESP 17; TEMP 36.9; O2SAT 96
--- NOTE | 2023-01-14 08:51 | PC.NURSE ---
patient up ambulating with with walker, gait steady.
--- NOTE | 2023-01-14 10:14 | MHC.RECOVRN ---
Met with pt in [place] to follow up regarding interest in ATS. Pt would like to go to [facility]. T/w awaiting notification of bed availability.
[2023-01-14 11:08] VITALS: BP 152/106; PULSE 96; RESP 14; TEMP 36.2; O2SAT 98
--- NOTE | 2023-01-14 11:15 | PC.NURSE ---
pt ate breakfast, awaiting disposition for admission to detox.
[2023-01-14] MEDS: LORazepam 1 MG TABLET PO (11:40)
[2023-01-14 12:43] VITALS: BP 160/108; PULSE 98; RESP 18; O2SAT 99
--- NOTE | 2023-01-14 14:07 | MHC.RECOVRN ---
No ATS beds available. Pt encouraged to present as walk in to [facility] at 8AM tomorrow. Provided with ATS information. Will Lyft to friend's house.
== END 2023-01-14 15:03 | disposition home or self-care (01) ==
PROVIDERS: Emergency Provider Emergency Medicine
DX: F10.120 Alcohol abuse with intoxication, uncomplicated (principal); Y90.9 Presence of alcohol in blood, level not specified
CPT/HCPCS: 70450; 72125; 99284; 99285

== ENCOUNTER 2023-01-14 23:35 | Emergency (ER) | payer MEDICAID, SELFPAY ==
[2023-01-14 23:41] VITALS: BP 105/67; BP 148/90; PULSE 106; PULSE 94; RESP 14; TEMP 37.1; O2SAT 95; O2SAT 97; BMI 25.7
--- NOTE | 2023-01-15 02:11 | ED.GENADULT ---
HPI - General Adult General Chief complaint: General Medical Stated complaint: ETOH/Abrasion on left toe Time Seen by Provider: 01/15/23 00:46 Source: patient Mode of arrival: EMS Limitations: no limitations History of Present Illness HPI narrative: Patient with chronic foot pain as he walks a lot and is homeless drinks alcohol been here multiple times already been 3 times this month. No recent injury Related Data Previous Rx's Medication Instructions Recorded amoxicillin 875 mg-potassium 1 tab PO BID #20 tabs 08/31/22 clavulanate 125 mg tablet folic acid 1 mg tablet 1 mg PO DAILY #30 tabs 08/31/22 prednisone 10 mg tablet See Rx Instructions .Route 08/31/22 .COMPLEX #45 tabs cephalexin 500 mg capsule 500 mg PO Q6H 7 days #28 caps 01/11/23 doxycycline hyclate 100 mg tablet 100 mg PO BID 7 days #14 tabs 01/11/23 Allergies Allergy/AdvReac Type Severity Reaction Status Date / Time clams Allergy Severe HIVES, Verified 01/11/23 13:54 DIFFICULTY BREATHING Review of Systems Review of Systems: Yes all other systems are reviewed and are negative PMFSH Past Medical History Medical History ETOH abuse High cholesterol HTN (hypertension) Social History Social History Household Members: None Housing: Homeless Do you presently have visiting nurse or other home services: No Alcohol intake: current Alcohol intake frequency: 3 or more drinks per day Alcohol type: beer Patient Tobacco Use Status: Never used Tobacco Smoked in Last 30 Days: No Use of substances other than those prescribed or required for medical reasons: No Advance Directives: No Advance Directives Information Provided: Yes service: No Current occupational status: unemployed Physical Exam ED Vital Signs: Vital Signs - 24 hr 01/14/23 23:41 01/15/23 02:42 01/15/23 06:08 Temperature 98.8 F 97.3 F Pulse Rate 94 77 Respiratory Rate 14 14 12 Blood Pressure 105/67 148/93 H Pulse Oximetry 95 97 Oxygen Delivery Method Room Air Room Air BMI result Body Mass Index 25.7 Appearance: Alert. Oriented X3. No acute distress. etoh+ Eyes: PERRLA, No Nystagmus ENT: Pharynx normal. Oral Mucosa moist Neck: Normal inspection. Neck supple. CVS: Normal heart rate and rhythm. Pulses normal. Respiratory: No respiratory distress. Equal air entry bilateral, no wheezing/rales/rhonchi Abdomen: Soft and nontender. Bowel sounds are present, no mass palpable, no CVA tenderness Skin: Skin warm and dry. Normal skin color. Normal skin turgor. Extremities: No lower extremity edema. No calf tenderness chronic callus bilateral Neuro: Oriented X 3. No motor deficit. No sensory deficit.No cerebellar signs , cranial nerves II-XII intact Discharge Plan Discharge Clinical Impression: ETOH abuse Patient Disposition: Home, Self-Care Instructions: Abuse of Alcohol (ED) Additional Instructions: Follow detox Prescriptions: No Action folic acid 1 mg Tablet 1 mg PO DAILY Qty: 30 0RF amoxicillin-pot clavulanate 875-125 mg tablet 1 tab PO BID Qty: 20 0RF prednisone 10 mg tablet See Rx Instructions .Route .COMPLEX Qty: 45 0RF Rx Instructions: 10 mg orally; 5 tabs p.o. daily x3 days; 4 tabs p.o. daily x3 days; 3 tabs daily x3 days; 2 tabs daily x3 days; 1 tab daily x3 days cephalexin 500 mg capsule 500 mg PO Q6H 7 Days Qty: 28 0RF doxycycline hyclate 100 mg tablet 100 mg PO BID 7 Days Qty: 14 0RF
[2023-01-15 02:42] VITALS: RESP 14
[2023-01-15 06:08] VITALS: BP 148/93; PULSE 77; RESP 12; TEMP 36.3; O2SAT 97
== END 2023-01-15 07:02 | disposition home or self-care (01) ==
PROVIDERS: Emergency Provider Internal Medicine
DX: F10.10 Alcohol abuse, uncomplicated (principal)
CPT/HCPCS: 99284

== ENCOUNTER 2023-03-20 14:55 | Emergency (ER) | payer MEDICAID, SELFPAY ==
--- NOTE | ~2023-03-20 | CT_ITS ---
EXAMINATION: CT HEAD WITHOUT CONTRAST CT CERVICAL SPINE WITHOUT CONTRAST CLINICAL INFORMATION: Fall. Pain. COMPARISON: None available. TECHNIQUE: Contiguous axial imaging was performed from the skull base to vertex without intravenous administration of contrast. This CT examination was performed using dose optimization techniques as appropriate, variously including the following: *Automated exposure control *Adjustment of mA and/or kV according to patient size (this includes techniques or standardized protocols for targeted exams where dose is matched to indication/reason for exam; i.e. extremities or head) *Use of iterative reconstruction technique DLP: 1067 mGy-cm FINDINGS: The lateral, third and fourth ventricles are normally outlined. The cortical sulci and basal cisterns are normally outlined as well. There is no acute territorial defect, hemorrhage or midline shift. The extra-axial spaces are unremarkable. Calvarium: Intact. Maxillofacial sinuses and mastoids: Clear as visualized. Cervical spine: The vertebral bodies are normally aligned. The bone mineralization is normal. The vertebral body heights are maintained. There is mild facet osteoarthritic hypertrophic change. There is no significant spinal canal and neuroforaminal narrowing. The soft tissues are unremarkable. The upper lung santos are clear. CT/CT head/brain wo IV con IMPRESSION: No acute intracranial abnormality. No fracture seen.
--- NOTE | ~2023-03-20 | CT_ITS ---
EXAMINATION: CT HEAD WITHOUT CONTRAST CT CERVICAL SPINE WITHOUT CONTRAST CLINICAL INFORMATION: Fall. Pain. COMPARISON: None available. TECHNIQUE: Contiguous axial imaging was performed from the skull base to vertex without intravenous administration of contrast. This CT examination was performed using dose optimization techniques as appropriate, variously including the following: *Automated exposure control *Adjustment of mA and/or kV according to patient size (this includes techniques or standardized protocols for targeted exams where dose is matched to indication/reason for exam; i.e. extremities or head) *Use of iterative reconstruction technique DLP: 1067 mGy-cm FINDINGS: The lateral, third and fourth ventricles are normally outlined. The cortical sulci and basal cisterns are normally outlined as well. There is no acute territorial defect, hemorrhage or midline shift. The extra-axial spaces are unremarkable. Calvarium: Intact. Maxillofacial sinuses and mastoids: Clear as visualized. Cervical spine: The vertebral bodies are normally aligned. The bone mineralization is normal. The vertebral body heights are maintained. There is mild facet osteoarthritic hypertrophic change. There is no significant spinal canal and neuroforaminal narrowing. The soft tissues are unremarkable. The upper lung santos are clear. CT/CT cervical spine wo IV con IMPRESSION: No acute intracranial abnormality. No fracture seen.
[2023-03-20 15:24] VITALS: BP 118/92; PULSE 64; RESP 16; TEMP 36.2; O2SAT 98
[2023-03-20 15:31] VITALS: BP 132/80; PULSE 100; O2SAT 95; BMI 27.8
--- NOTE | 2023-03-20 15:53 | MHC.EDTECH ---
PATIENT CAME VIA EMS ,VITALS SIGN TAKEN ,PT WAS SOAKED IN URINE ,BED BATH GIVEN ,AND WARM BLANKET .
--- NOTE | 2023-03-20 16:00 | ED.ALCOHOL ---
HPI - Alcohol General Chief Complaint: Fall Stated Complaint: UNWIT FAL,HIT HEAD,-LOC,-THINNERS PER EMS Time Seen by Provider: 03/20/23 15:28 Source: patient and EMS Mode of arrival: EMS Limitations: no limitations History of Present Illness HPI narrative: Patient comes to the emergency room via ambulance. Patient states that he was outside of a gas station, patient fell backwards and hit the back of his head. Patient complaining of localized pain, no neck pain, no loss of consciousness, not on blood thinners. Patient states that he drank ?one beer too many?. Related Data Previous Rx's Medication Instructions Recorded amoxicillin 875 mg-potassium 1 tab PO BID #20 tabs 08/31/22 clavulanate 125 mg tablet folic acid 1 mg tablet 1 mg PO DAILY #30 tabs 08/31/22 prednisone 10 mg tablet See Rx Instructions .Route 08/31/22 .COMPLEX #45 tabs cephalexin 500 mg capsule 500 mg PO Q6H 7 days #28 caps 01/11/23 doxycycline hyclate 100 mg tablet 100 mg PO BID 7 days #14 tabs 01/11/23 Allergies Allergy/AdvReac Type Severity Reaction Status Date / Time clams Allergy Severe HIVES, Verified 01/11/23 13:54 DIFFICULTY BREATHING PMFSH Past Medical History Medical History ETOH abuse High cholesterol HTN (hypertension) Social History Social History Household Members: None Housing: Homeless Do you presently have visiting nurse or other home services: No Alcohol intake: current Alcohol intake frequency: 3 or more drinks per day Alcohol type: beer Patient Tobacco Use Status: Never used Tobacco Use of substances other than those prescribed or required for medical reasons: Yes Advance Directives: No Advance Directives Information Provided: Yes service: No Current occupational status: unemployed Physical Exam ED Vital Signs: Vital Signs - 24 hr 03/20/23 15:24 Temperature 97.2 F Pulse Rate 64 Respiratory Rate 16 Blood Pressure 118/92 H Pulse Oximetry 98 Oxygen Delivery Method Room Air BMI result Body Mass Index 27.8 Medical Decision Making Medical Decision Making MDM Narrative: -my interpretation a CT scan of the head: No intracranial bleed -patient's vitals stable -plan: Metabolize to freedom -physician observation started at 19:30 Differential Diagnosis Differential Diagnoses: The differential diagnosis associated with the presentation includes (Intracranial bleed, alcohol intoxication, substance abuse) Admission/Observation Consideration of admission/observation: Escalation of care including admission/observation considered (Patient will remain under observation until medically/clinically sober) Independent Interpretation I performed an independent interpretation of an: CT Scan Radiology Impression Discussion of test interpretation with radiology: I have reviewed the radiologist's reading. Radiologist Impression: FINDINGS: The lateral, third and fourth ventricles are normally outlined. The cortical sulci and basal cisterns are normally outlined as well. There is no acute territorial defect, hemorrhage or midline shift. The extra-axial spaces are unremarkable. Calvarium: Intact. Maxillofacial sinuses and mastoids: Clear as visualized. Cervical spine: The vertebral bodies are normally aligned. The bone mineralization is normal. The vertebral body heights are maintained. There is mild facet osteoarthritic hypertrophic change. There is no significant spinal canal and neuroforaminal narrowing. The soft tissues are unremarkable. The upper lung santos are clear. CT/CT cervical spine wo IV con IMPRESSION: No acute intracranial abnormality. No fracture seen. Critical Care Time Critical Care Time Critical Care Time: Yes Total Critical Care Time: 60 Attestation: I have personally provided critical care time. Time includes review of lab data, radiology results, discussion with consultants, and monitoring for potential decompensation. Intervention performed as documented. Discharge Plan Discharge Clinical Impression: Alcohol intoxication, Fall Patient Disposition: Still a Patient Prescriptions: No Action folic acid 1 mg Tablet 1 mg PO DAILY Qty: 30 0RF amoxicillin-pot clavulanate 875-125 mg tablet 1 tab PO BID Qty: 20 0RF prednisone 10 mg tablet See Rx Instructions .Route .COMPLEX Qty: 45 0RF Rx Instructions: 10 mg orally; 5 tabs p.o. daily x3 days; 4 tabs p.o. daily x3 days; 3 tabs daily x3 days; 2 tabs daily x3 days; 1 tab daily x3 days cephalexin 500 mg capsule 500 mg PO Q6H 7 Days Qty: 28 0RF doxycycline hyclate 100 mg tablet 100 mg PO BID 7 Days Qty: 14 0RF
--- NOTE | 2023-03-20 18:53 | MHC.RECOVSUP ---
? Reason for consult Recovery Support o Current location: o Identified substance use concern: Alcohol - Seeking ATS (detox) - Support ? Intervention: o Community resources provided o Harm reduction discussion ? Plan: o Patient awaiting crisis evaluation o Patient to follow up with [facility] after discharge ? Additional information: Met with patient.. Patient stated that he would love to go back to [facility].. [facility] at the moment stated that no beds at the moment.. To try in the morning 8AM.
[2023-03-20 19:36] LABS: Appearance Urine Clear; Color Urine Yellow; Glucose Urine UA Negative (Negative); Leukocyte Esterase Urine Negative (Negative); Nitrite Urine Negative (Negative); PH 5.5 (5.0-9.0); Specific Gravity - Urine <= 1.005 (1.005-1.025); Urine Blood Negative (Negative); Urine Ketones Negative (Negative); Urine Protein Negative (Neg-Trace)
[2023-03-20 19:40] LABS: Amphetamine Screen Urine Not Detected (Not Detect); Barbiturates, Urine Not Detected (Not Detect); Benzodiazepines Screen Urine Not Detected (Not Detect); Cannabinoid Screen Urine Not Detected (Not Detect); Cocaine Screen Urine Not Detected (Not Detect); Fentanyl, urine Not Detected (Not Detect); Opiate Screen Urine Not Detected (Not Detect); Phencyclidine Screen Urine Not Detected (Not Detect)
[2023-03-21 01:46] VITALS: BP 140/95; PULSE 83; RESP 16; TEMP 36.3; O2SAT 95
--- NOTE | 2023-03-21 02:00 | MHC.EDTECH ---
THIS PCT JUST ASSUMED CARE OF PT ,VITALS SIGN TAKEN ,PT URINAL EMPTY 600 ML ,PT WAS GIVEN HAM SANDWICH AND CL SILVIA FOR SNACK ,BELONGING LIST DONE ,NO APPARENT DISTRESS ,WILL CONTINUE TO MONITOR .
[2023-03-21 05:56] VITALS: BP 115/76; PULSE 91; RESP 17; TEMP 36.6; O2SAT 97
--- NOTE | 2023-03-21 11:15 | MHC.RECOVSUP ---
Met with pt in ED16 who is here for a fall and JI. Pt informs he has been drinking 2-3 tall boy beers a day and has no interest in MAT. Pt would like to go to [place] at this time and if not will go to his friends house. [facility] [place] in process, pt has no other questions or concerns at this time.
[2023-03-21 13:15] VITALS: BP 138/91; PULSE 83; RESP 16; TEMP 37; O2SAT 98
== END 2023-03-21 17:36 | disposition home or self-care (01) ==
PROVIDERS: Emergency Provider Emergency Medicine
DX: F10.220 Alcohol dependence with intoxication, uncomplicated (principal); Y90.9 Presence of alcohol in blood, level not specified; Z91.81 History of falling; I10 Essential (primary) hypertension; E78.00 Pure hypercholesterolemia, unspecified; Z79.899 Other long term (current) drug therapy
CPT/HCPCS: 70450; 72125; 80307; 81003; 99283; 99284; 99285

== ENCOUNTER 2023-03-24 14:02 | Emergency (ER) | payer MEDICAID, SELFPAY ==
--- NOTE | ~2023-03-24 | CT_ITS ---
EXAMINATION: CT HEAD WITHOUT CONTRAST CLINICAL INFORMATION: Fall. Pain. COMPARISON: 03/20/2023. TECHNIQUE: Contiguous axial imaging was performed from the skull base to vertex without intravenous administration of contrast. This CT examination was performed using dose optimization techniques as appropriate, variously including the following: *Automated exposure control *Adjustment of mA and/or kV according to patient size (this includes techniques or standardized protocols for targeted exams where dose is matched to indication/reason for exam; i.e. extremities or head) *Use of iterative reconstruction technique DLP: 1048 mGy-cm FINDINGS: The lateral, third and fourth ventricles are normally outlined. The cortical sulci and basal cisterns are normally outlined as well. There is no acute territorial defect, hemorrhage or midline shift. The extra-axial spaces are unremarkable. Calvarium/scalp: The calvarium is intact. There is left parietal scalp soft tissue swelling. Maxillofacial sinuses and mastoids: Clear as visualized. Cervical spine: There is curvature of the cervical spine convex to the left. The sagittal alignment is normal. The bone mineralization is normal. There is no fracture. The disc spaces are maintained. The there is mild diffuse facet osteoarthritic hypertrophic change without significant spinal canal and neuroforaminal narrowing. The soft tissues are unremarkable. The visualized upper lung santos are unremarkable CT/CT head/brain wo IV con IMPRESSION: No acute intracranial pathology. No fracture of the cervical spine.
--- NOTE | ~2023-03-24 | CT_ITS ---
EXAMINATION: CT HEAD WITHOUT CONTRAST CLINICAL INFORMATION: Fall. Pain. COMPARISON: 03/20/2023. TECHNIQUE: Contiguous axial imaging was performed from the skull base to vertex without intravenous administration of contrast. This CT examination was performed using dose optimization techniques as appropriate, variously including the following: *Automated exposure control *Adjustment of mA and/or kV according to patient size (this includes techniques or standardized protocols for targeted exams where dose is matched to indication/reason for exam; i.e. extremities or head) *Use of iterative reconstruction technique DLP: 1048 mGy-cm FINDINGS: The lateral, third and fourth ventricles are normally outlined. The cortical sulci and basal cisterns are normally outlined as well. There is no acute territorial defect, hemorrhage or midline shift. The extra-axial spaces are unremarkable. Calvarium/scalp: The calvarium is intact. There is left parietal scalp soft tissue swelling. Maxillofacial sinuses and mastoids: Clear as visualized. Cervical spine: There is curvature of the cervical spine convex to the left. The sagittal alignment is normal. The bone mineralization is normal. There is no fracture. The disc spaces are maintained. The there is mild diffuse facet osteoarthritic hypertrophic change without significant spinal canal and neuroforaminal narrowing. The soft tissues are unremarkable. The visualized upper lung santos are unremarkable CT/CT cervical spine wo IV con IMPRESSION: No acute intracranial pathology. No fracture of the cervical spine.
[2023-03-24 14:09] VITALS: BP 107/76; BP 109/76; PULSE 82; PULSE 84; RESP 16; TEMP 36.5; O2SAT 98; O2SAT 99; BMI 27.9
[2023-03-24 14:16] VITALS: PULSE 87; PULSE 91; RESP 16; O2SAT 96
--- NOTE | 2023-03-24 14:32 | ECG_ITS ---
Test Reason : FALL Blood Pressure : / mmHG Vent. 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 rate has decreased BY 36 BPM T wave inversion now evident in Inferior leads Nonspecific T wave abnormality now evident in Lateral leads Referred By: Ai Petit Electronically Signed By:SEVEN LEUNG
[2023-03-24] MEDS: 0.9 % Sodium Chloride 1,000 ML 999 ML IVCONT (15:31)
--- NOTE | 2023-03-24 15:34 | ED_ITS ---
HPI - Fall General Chief Complaint: Fall Stated Complaint: FALL, ? 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 He reports that he drank a few beers this morning he reports approximately 2 he believes and he was going up the stairs to his friend's apartment and he was approximately 2-3 steps up the stairs when he fell backwards hitting his head. He did not lose consciousness. There was no prolonged down time. He denies any dizziness, change in vision, new focal weakness, chest pain or shortness of breath, rashes, abdominal pain, nausea/vomiting/diarrhea, back pain, extremity pain, lacerations/abrasions or wounds or any other symptoms complaints or concerns at this time. Reports he is not interested in detox. Denies any SI or HI any auditory visualizations thoughts of self-injury. Denies any drug usage. 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) Fall from: down stairs (#) (2-3 stairs up) Fall witnessed: yes, by bystander (yes friend) Place fall occurred: other (Friend's house) Loss of consciousness: none Prolonged down time: no Symptoms prior to fall: none Context: tripped/slipped Location of injury: head Severity: mild Associated symptoms (after fall): denies Related Data Previous Rx's Medication Instructions Recorded amoxicillin 875 mg-potassium 1 tab PO BID #20 tabs 08/31/22 clavulanate 125 mg tablet folic acid 1 mg tablet 1 mg PO DAILY #30 tabs 08/31/22 prednisone 10 mg tablet See Rx Instructions .Route 08/31/22 .COMPLEX #45 tabs cephalexin 500 mg capsule 500 mg PO Q6H 7 days #28 caps 01/11/23 doxycycline hyclate 100 mg tablet 100 mg PO BID 7 days #14 tabs 01/11/23 Allergies Allergy/AdvReac Type Severity Reaction Status Date / Time clams Allergy Severe HIVES, Verified 01/11/23 13:54 DIFFICULTY BREATHING Review of Systems 2 Review of Systems: Constitutional : No Weight loss, No Fever, No Chills, No Night Sweats, No Fatigue, No Malaise ENT/Mouth : No Hearing loss, No Ear Pain, No Nasal Congestion, No Sinus Pain, No Hoarseness, No sore throat, No Rhinorrhea, No Swallowing Difficulty Eyes: No Eye Pain, No Swelling, No Redness, No Foreign Body, No Discharge, No Vision Changes Cardiovascular : No Chest Pain, No SOB, No Dyspnea on Exertion, No Orthopnea, No Edema, No Palpitations Respiratory : No Cough, No Sputum, No Wheezing, No Smoke Exposure, No Dyspnea Gastrointestinal : No Nausea, No Vomiting, No Diarrhea, No Constipation, No abdominal Pain, No Hematochezia, No Melena Genitourinary : no irregular bleeding, No Dysuria, No Urinary Frequency, No Hematuria, No Urinary Incontinence, No Urgency, No Flank Pain, No Urinary Flow Changes, No Hesitancy Musculoskeletal : No joint pain, No Myalgias, No Joint Swelling Skin : No Skin Lesions, No rash Neuro : No Weakness, No Numbness, No Paresthesias, No Loss of Consciousness, No Dizziness, No Headache Psych : No Anxiety/Panic, No Depression, No SI/HI/AH/VH, No Social Issues, Heme/Lymph: No Bruising, No Bleeding,No Lymphadenopathy Endocrine : No Polyuria, No Polydipsia, No Temperature Intolerance Yes all other systems are reviewed and are negative [facility] Past Medical History Attestation statement: The following information was validated with the patient. Source: old records reviewed, obtained from family and nursing notes reviewed Medical History High cholesterol HTN (hypertension) ETOH abuse Social History Social History Household Members: None Housing: Homeless Do you presently have visiting nurse or other home services: No Alcohol intake: current Alcohol intake frequency: 3 or more drinks per day Alcohol type: beer Patient Tobacco Use Status: Never used Tobacco Smoked in Last 30 Days: No Use of substances other than those prescribed or required for medical reasons: No Advance Directives: No Advance Directives Information Provided: No service: No Current occupational status: unemployed Physical Exam 2 Vital Signs: Vital Signs: Last Vital Signs Temp 97.5 F 03/24/23 17:10 Pulse 85 03/24/23 17:10 Resp 16 03/24/23 17:10 BP 122/84 03/24/23 17:10 Pulse Ox 98 03/24/23 17:10 O2 Del Method Room Air 03/24/23 17:10 BMI result Body Mass Index 27.9 vital signs have been reviewed as normal and appeared to be correct. Blood pressure normal. Heart rate normal. Respiration rate normal. Temperature normal. Oxygen saturation normal. Appearance: Alert. Oriented X3. No acute distress. Appears intoxicated. C- collar in place. Head: Normal external exam. Normocephalic. Atraumatic. No Willams signs noted. No raccoon eyes noted. Eyes: PERRLA. EOMI. Conjunctiva and sclera normal. Eyelids normal. ENT: EAC normal. TM's Normal. No septal hematoma noted. No hemotympanum noted. Pharynx normal. Uvula midline. Moist mucous membranes. No lesions/ulcerations or masses noted on the tongue. Normal voice. No trismus noted. No drooling noted. No muffled voice noted. Neck: Normal inspection. Neck supple. FROM. No adenopathy. Thyroid Normal. No tracheal deviation noted. No crepitus is noted. No meningeal signs. No neck mass noted. No signs of trauma noted. CVS: Normal heart rate and rhythm. Heart sound normal. Pulses normal throughout. No murmurs/rales/gallops. Respiratory: No respiratory distress. Painless inspiration. Breath sounds normal. No wheezes/rales/rhonchi noted. Chest nontender. No crepitus is noted. No accessory muscle usage noted or decreased air movement noted. No signs of trauma. Abdomen: Soft and nontender. Nondistended. No guarding. No rigidity. Bowel sounds normal in all 4 quadrants. No distention noted. No organomegaly noted. No visible injury noted. No rebound tenderness. Negative Rovsing sign. Negative obturator's sign. Negative psoas sign. Negative Calvin sign. Back: No CVA tenderness. Full range of motion noted. Nontender. No signs of trauma. Patient neuro intact bilaterally and distally on all 4 extremities. Patient's reflexes intact bilaterally and distally on all 4 extremities. No rashes/lesion/induration/fluctuance or signs of infection noted. Skin: Skin warm and dry. Normal skin color. Normal skin turgor. No rashes/lesions/lacerations noted. Extremities: No lower extremity edema. No calf tenderness is noted. Extremities exhibit normal range of motion and nontender. Neuro: Oriented X 3. No motor deficit. No sensory deficit. Reflexes normal. Normal steady gait. No focal neuro deficits noted. CN's II-XII intact bilaterally? Vascular: + radial pulses/+ 2 distal pedal pulses/+2 dorsalis pedis b/l. Normal cap refill. No cyanosis noted to upper extremity nails and lower extremity toes nails. 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 He reports that he drank a few beers this morning he reports approximately 2 he believes and he was going up the stairs to his friend's apartment and he was approximately 2-3 steps up the stairs when he fell backwards hitting his head. He did not lose consciousness. There was no prolonged down time. Denies any symptoms prior to the fall or after the fall. MDM: Patient with most likely mechanical fall. H&P not consistent with fractures; dislocation; electrolyte abnormalities; CVA; ACS; ICH; SAH or any other acute processes. Plan: Will obtain basic labs, CT scan of brain/cervical spine, EKG. Provide IV fluids and re-evaluate. Reevaluation(s) Reevaluation #1: Labs reviewed patient's - white blood cell count 4000, - platelet count 157, - chloride 113, - troponin 6.9 although patient has a chronic baseline elevated troponin, - alcohol level 214. Otherwise all other labs are within normal limits. Imaging reviewed - CT scan brain/cervical spine negative for any acute processes. Patient reports that he would like some Tylenol for his head pain from when he fell. Otherwise he denies any other symptoms at this time. He reports that he is actually interested in detox. Therefore at this time will place the care team consult for detox will continue to monitor. Time: 17:31 Reevaluation #2: Patient is clinically sober at this time. Reports he feels completely fine and would like to go home. He has a normal steady gait. He has eaten while he has been here. He wants to take a lift back to his girl friend's house. He was seen by detox counselor he does not want inpatient detox he would like outpatient resource therefore he was given outpatient resources. Will DC home with instructions return if any new or worsening symptoms follow up with primary care provider. Patient understands agrees with this plan. Time: 19:22 Medications Administered Discontinued Medications Generic Name Dose Route Start Last Admin Trade Name Toi PRN Reason Stop Dose Admin Acetaminophen 975 mg 03/24/23 17:29 03/24/23 17:37 Acetaminophen 325 Mg Tablet PO 03/24/23 17:30 975 mg ONCE ONE Administration Sodium Chloride 1,000 mls @ 999 mls/hr 03/24/23 14:45 03/24/23 16:38 Ns IVCONT 03/24/23 15:45 Infused .Q1H1M NOBLE Infusion Medical Decision Making Medical Decision Making MDM Narrative: see course Differential Diagnosis Differential Diagnoses: The differential diagnosis associated with the presentation includes see course Lab Data [facility] Lab Attestation statement: I reviewed the patient's lab results. 03/24/23 15:29 03/24/23 15:29 Labs: Lab Results 03/24/23 03/24/23 03/24/23 Range/Units 15:29 15:30 17:56 WBC 4.4 L (4.8-10.8) X10*3/uL RBC 4.74 D (4.60-5.80) X10*6/uL Hgb 14.6 D (14.0-18.0) g/dl Hct 43.1 D (42.0-52.0) % MCV 90.9 (80.0-98.0) fL MCH 30.8 (27.0-33.0) pg MCHC 33.9 (31.0-36.0) g/dl RDW 13.8 (11.0-16.0) % Plt Count 157 L D (160-400) X10*3/uL MPV 11.1 (9.4-12.4) fL Immature Gran % (Auto) 0.2 (0.0-0.4) % Neut % (Auto) 63.0 (45-73) % Lymph % (Auto) 18.4 L (20-40) % Delta % (Auto) 12.5 H (2-11) % Eos % (Auto) 5.4 H (0-4) % Baso % (Auto) 0.5 (0-2) % Lymph # (Auto) 0.8 L (1.2-4.9) X10*3/uL Delta # (Auto) 0.6 (0.1-1.2) X10*3/uL Eos # (Auto) 0.2 (0.0-0.4) X10*3/uL Baso # (Auto) 0.0 (0.0-0.2) X10*3/uL Abs Immat Gran (auto) 0.01 (0.00-0.03) X10*3/uL Absolute Neuts (auto) 2.8 (2.0-8.3) x10*3/uL Absolute Nucleated RBC 0.000 (0.0-0.012) X10*3/uL Nucleated RBC % (auto) 0.0 (0.0-0.2) /100WBC PT 12.0 (11.1-13.3) SEC INR 1.0 (0.9-1.1) Sodium 145 (135-145) mmol/L Potassium 3.6 (3.3-5.1) mmol/L Chloride 113 H (96-108) mmol/L Carbon Dioxide 22 (22-29) mmol/L Anion Gap 14 (12-20) BUN 15 (9-16) mg/dL Creatinine 0.74 (0.5-1.4) mg/dL Estim Creat Clear Calc 117.5 Estimated GFR > 60 Random Glucose 104 (60-115) mg/dL Calcium 8.5 D (8.4-10.2) mg/dL Magnesium 2.4 (1.6-2.6) mg/dL Total Bilirubin 0.4 (0.0-1.0) mg/dL AST 36 (5-37) U/L ALT 32 (0-40) U/L Alkaline Phosphatase 57 (39-117) U/L Total Creatine Kinase 133 (38-174) U/L Troponin I High Sens 6.9 D (<3.5-35.0) ng/L Total Protein 7.1 (6.5-8.0) g/dL Albumin 3.8 (3.5-5.0) g/dL Lipase 65 (8-78) U/L Urine Opiates Screen (Not Detect) Urine Fentanyl Screen (Not Detect) Ur Barbiturates Screen (Not Detect) Ur Phencyclidine Scrn (Not Detect) Ur Amphetamines Screen (Not Detect) U Benzodiazepines Scrn (Not Detect) Urine Cocaine Screen (Not Detect) U Marijuana (THC) Screen (Not Detect) Ethyl Alcohol 214 mg/dL COVID-19 (TYE) Negative (Negative) COVID-19 Clin Com See Note 03/24/23 03/24/23 Range/Units 17:58 18:04 WBC (4.8-10.8) X10*3/uL RBC (4.60-5.80) X10*6/uL Hgb (14.0-18.0) g/dl Hct (42.0-52.0) % MCV (80.0-98.0) fL MCH (27.0-33.0) pg MCHC (31.0-36.0) g/dl RDW (11.0-16.0) % Plt Count (160-400) X10*3/uL MPV (9.4-12.4) fL Immature Gran % (Auto) (0.0-0.4) % Neut % (Auto) (45-73) % Lymph % (Auto) (20-40) % Delta % (Auto) (2-11) % Eos % (Auto) (0-4) % Baso % (Auto) (0-2) % Lymph # (Auto) (1.2-4.9) X10*3/uL Delta # (Auto) (0.1-1.2) X10*3/uL Eos # (Auto) (0.0-0.4) X10*3/uL Baso # (Auto) (0.0-0.2) X10*3/uL Abs Immat Gran (auto) (0.00-0.03) X10*3/uL Absolute Neuts (auto) (2.0-8.3) x10*3/uL Absolute Nucleated RBC (0.0-0.012) X10*3/uL Nucleated RBC % (auto) (0.0-0.2) /100WBC PT (11.1-13.3) SEC INR (0.9-1.1) Sodium (135-145) mmol/L Potassium (3.3-5.1) mmol/L Chloride (96-108) mmol/L Carbon Dioxide (22-29) mmol/L Anion Gap (12-20) BUN (9-16) mg/dL Creatinine (0.5-1.4) mg/dL Estim Creat Clear Calc Estimated GFR Random Glucose (60-115) mg/dL Calcium (8.4-10.2) mg/dL Magnesium (1.6-2.6) mg/dL Total Bilirubin (0.0-1.0) mg/dL AST (5-37) U/L ALT (0-40) U/L Alkaline Phosphatase (39-117) U/L Total Creatine Kinase (38-174) U/L Troponin I High Sens 5.0 (<3.5-35.0) ng/L Total Protein (6.5-8.0) g/dL Albumin (3.5-5.0) g/dL Lipase (8-78) U/L Urine Opiates Screen Not Detected (Not Detect) Urine Fentanyl Screen Not Detected (Not Detect) Ur Barbiturates Screen Not Detected (Not Detect) Ur Phencyclidine Scrn Not Detected (Not Detect) Ur Amphetamines Screen Not Detected (Not Detect) U Benzodiazepines Scrn Not Detected (Not Detect) Urine Cocaine Screen Not Detected (Not Detect) U Marijuana (THC) Screen Not Detected (Not Detect) Ethyl Alcohol mg/dL COVID-19 (TYE) (Negative) COVID-19 Clin Com Independent Interpretation I performed an independent interpretation of an: EKG and CT Scan (CT scan of brain/cervical spine without contrast reviewed by myself this is my independent interpretation agreeable with radiologist reports no discrepancy) Radiology Impression Discussion of test interpretation with radiology: I discussed test interpretation with the radiologist and I have reviewed the radiologist's reading. Radiologist Impression: FINDINGS: The lateral, third and fourth ventricles are normally outlined. The cortical sulci and basal cisterns are normally outlined as well. There is no acute territorial defect, hemorrhage or midline shift. The extra-axial spaces are unremarkable. Calvarium/scalp: The calvarium is intact. There is left parietal scalp soft tissue swelling. Maxillofacial sinuses and mastoids: Clear as visualized. Cervical spine: There is curvature of the cervical spine convex to the left. The sagittal alignment is normal. The bone mineralization is normal. There is no fracture. The disc spaces are maintained. The there is mild diffuse facet osteoarthritic hypertrophic change without significant spinal canal and neuroforaminal narrowing. The soft tissues are unremarkable. The visualized upper lung santos are unremarkable CT/CT head/brain wo IV con IMPRESSION: No acute intracranial pathology. No fracture of the cervical spine. Independent Historian Clinical information obtained from an independent historian. History obtained from or confirmed by: EMS External Record Review External record reviewed: Inpatient record, Office record, Outpatient record, Prior outpatient labs, Prior outpatient radiology, Primary care record, Outside ED record and Other All prior labs/imaging/EKG and notes that are accessible in our system reviewed by myself Chronic Conditions Patient?s care impacted by: Hypertension and Other (Alcohol dependency) Social Determinants Patient?s care significantly limited by Social Determinants of Health including: Low income, Alcoholism and drug addiction in family and Other Social Determinant of Health Discharge Plan Discharge Clinical Impression: ETOH abuse, Fall, Leukopenia, Low platelet count, Head injury without concussion or intracranial hemorrhage Patient Disposition: Home, Self-Care Instructions: Abuse of Alcohol (ED), Head Injury (ED) Prescriptions: No Action folic acid 1 mg Tablet 1 mg PO DAILY Qty: 30 0RF amoxicillin-pot clavulanate 875-125 mg tablet 1 tab PO BID Qty: 20 0RF prednisone 10 mg tablet See Rx Instructions .Route .COMPLEX Qty: 45 0RF Rx Instructions: 10 mg orally; 5 tabs p.o. daily x3 days; 4 tabs p.o. daily x3 days; 3 tabs daily x3 days; 2 tabs daily x3 days; 1 tab daily x3 days cephalexin 500 mg capsule 500 mg PO Q6H 7 Days Qty: 28 0RF doxycycline hyclate 100 mg tablet 100 mg PO BID 7 Days Qty: 14 0RF Referrals: [facility] [Primary Care Provider] - 1 day
[2023-03-24 15:35] LABS: MANUAL DIFF FLAG NO
[2023-03-24 15:37] LABS: Basophils Percent Auto 0.5 % (0-2); Eosinophils Absolute Auto 0.2 X10*3/uL (0.0-0.4); Eosinophils Percent Auto 5.4 % (0-4); Hematocrit 43.1 % (42.0-52.0); Hemoglobin 14.6 g/dl (14.0-18.0); Imm Gran Abs Auto 0.01 X10*3/uL (0.00-0.03); Imm Gran Pct Auto 0.2 % (0.0-0.4); Lymphocytes Absolute Auto 0.8 X10*3/uL (1.2-4.9); Lymphocytes Percent Auto 18.4 % (20-40); Mean Corpuscular HGB Conc 33.9 g/dl (31.0-36.0); Mean Corpuscular Hemoglobin 30.8 pg (27.0-33.0); Mean Corpuscular Volume 90.9 fL (80.0-98.0); Mean Platelet Volume 11.1 fL (9.4-12.4); Monocytes Absolute Auto 0.6 X10*3/uL (0.1-1.2); Monocytes Percent Auto 12.5 % (2-11); Neutrophils Absolute Auto 2.8 x10*3/uL (2.0-8.3); Platelet Count 157 X10*3/uL (160-400); Red Blood Count 4.74 X10*6/uL (4.60-5.80); Red Cell Distribution Width 13.8 % (11.0-16.0); White Blood Count 4.4 X10*3/uL (4.8-10.8)
[2023-03-24 15:54] LABS: Alanine Aminotransferase 32 U/L (0-40); Albumin Level 3.8 g/dL (3.5-5.0); Alkaline Phosphatase 57 U/L (39-117); Anion Gap 14 (12-20); Aspartate Amino Transferase 36 U/L (5-37); Bilirubin Total 0.4 mg/dL (0.0-1.0); Blood Urea Nitrogen 15 mg/dL (9-16); Calcium 8.5 mg/dL (8.4-10.2); Carbon Dioxide 22 mmol/L (22-29); Chloride 113 mmol/L (96-108); Creatinine Clr Calc Pharmacy 117.5; Estimated Glomerular Filt Rate > 60; Glucose Random 104 mg/dL (60-115); Lipase 65 U/L (8-78); Magnesium 2.4 mg/dL (1.6-2.6); Potassium 3.6 mmol/L (3.3-5.1); Sodium 145 mmol/L (135-145); Total Protein 7.1 g/dL (6.5-8.0)
[2023-03-24 15:55] LABS: Ethanol 214 mg/dL
[2023-03-24 16:04] LABS: Troponin-I High Sensitivity 6.9 ng/L (<3.5-35.0)
[2023-03-24 17:10] VITALS: BP 122/84; PULSE 85; RESP 16; TEMP 36.4; O2SAT 98
--- NOTE | 2023-03-24 17:11 | PC.NURSE ---
This senior copywriter assumed care of this Pt at 1545. Pt laying in stretcher, c-collar in place, appears to be sleeping, awakens with verbal stimuli. Pt A&O to self and year, denies any pain. VSS.
[2023-03-24] MEDS: Acetaminophen 325 MG TABLET 975 MG PO (17:37)
--- NOTE | 2023-03-24 17:41 | PC.NURSE ---
Pt reports 4/10 headache, medicated per AUG.
[2023-03-24 18:23] LABS: Amphetamine Screen Urine Not Detected (Not Detect); Barbiturates, Urine Not Detected (Not Detect); Benzodiazepines Screen Urine Not Detected (Not Detect); Cannabinoid Screen Urine Not Detected (Not Detect); Cocaine Screen Urine Not Detected (Not Detect); Fentanyl, urine Not Detected (Not Detect); Opiate Screen Urine Not Detected (Not Detect); Phencyclidine Screen Urine Not Detected (Not Detect)
[2023-03-24 18:30] LABS: COVID-19 Test Negative (Negative); IDNOW Serial# 08D9AD1C
--- NOTE | 2023-03-24 18:33 | MHC.RECOVSUP ---
Met with pt in ED11 who is here for a fall and JI. Pt was here last week (see notes for full history) and is still drinking about 2-3 tall boys a day. Pt would like ATS at this time however was informed there are no beds available at this time. Pt has no other questions or concerns at this time.
--- NOTE | 2023-03-24 18:45 | PC.NURSE ---
Pt reports effectiveness to med, PO fluids and sandwich given, tolerating well.
== END 2023-03-24 19:34 | disposition home or self-care (01) ==
PROVIDERS: Physician Assistant Medical; Emergency Provider Emergency Medicine Emergency Medical Services
DX: S09.90XA Unspecified injury of head, initial encounter (principal); W10.8XXA Fall (on) (from) other stairs and steps, initial encounter; F10.20 Alcohol dependence, uncomplicated; Y90.7 Blood alcohol level of 200-239 mg/100 ml; D72.819 Decreased white blood cell count, unspecified; Z20.822 Contact with and (suspected) exposure to COVID-19; Y93.89 Activity, other specified; Y92.008 Other place in unspecified non-institutional (private) residence as the place of occurrence of the external cause; Y99.9 Unspecified external cause status; Z79.899 Other long term (current) drug therapy
CPT/HCPCS: 36415; 70450; 72125; 80053; 80307; 82550; 83690; 83735; 84484; 85025; 85610; 87635; 93005; 96360; 99284; 99285

== ENCOUNTER 2023-03-25 13:11 | Emergency (ER) | payer MEDICAID, SELFPAY ==
--- NOTE | ~2023-03-25 | CT_ITS ---
EXAMINATION: CT head/brain wo IV con, CT cervical spine wo IV con INDICATION INFORMATION: Reason for Exam fall back, +head strike + LOC COMPARISON: CT head and cervical spine 03/24/2023 TECHNIQUE: Separate noncontrast CT examinations of the head and cervical spine were performed. Coronal and sagittal images were created for each examination at the technologist workstation. This CT examination was performed using dose optimization techniques as appropriate, variously including the following: *Automated exposure control *Adjustment of mA and/or kV according to patient size (this includes techniques or standardized protocols for targeted exams where dose is matched to indication/reason for exam; i.e. extremities or head) *Use of iterative reconstruction technique DLP: 1180.79 mGy-cm FINDINGS: Head: Stable mild global cerebral volume loss and presumed minimal chronic microangiopathic changes. Redemonstrated slight asymmetric prominence of the right temporal horn. Prominent retrocerebellar CSF space may reflect a jacklyn cisterna magna versus arachnoid cyst. No territorial loss of yao-white differentiation. No acute intracranial hemorrhage or extra-axial fluid collection. No mass lesion, significant mass effect, or herniation pattern. Trace calcific plaque along the carotid siphons. The orbits are grossly normal. Mild polypoid mucosal disease in the imaged bilateral maxillary sinuses and small retention cyst in the left sphenoid sinus. Focal osseous defect of the sphenoid intrasinus septum. No mastoid effusion. Enlarged left mastoid emissary vein measuring 8 mm may be a benign incidental finding however can be correlated clinically for signs of left-sided pulsatile tinnitus. Osseous structures are intact. Redemonstrated scarring along the left parietal scalp. Cervical spine: No prevertebral soft tissue swelling. The craniocervical junction is intact. The cervical lordosis is preserved. Trace anterolisthesis at C5-C6. Vertebral body heights are normal without acute compression fracture or traumatic posterior element subluxation. No suspicious osseous lesion. Minimal cervical spondylosis. Normal appearance of the paraspinal soft tissues. Normal appearance of the thyroid gland. Borderline enlarged 1.0 cm left periparotid lymph node and borderline left level 2A lymph node with preservation of the normal fatty venus, nonspecific. Fatty infiltration and scattered punctate calcifications within the bilateral parotid glands can be correlated clinically for the possibility of Sjogren's disease. Mild interlobular septal thickening within the lung apices which may reflect a combination of pleural-parenchymal scarring and interstitial edema. Mild atherosclerotic calcifications at the carotid bifurcations. CT/CT cervical spine wo IV con IMPRESSION: 1. No CT evidence of acute intracranial injury. Stable chronic findings as above. 2. Enlarged left mastoid emissary vein measuring 8 mm may be a benign incidental finding however can be correlated clinically for signs of left-sided pulsatile tinnitus. 3. No evidence of acute traumatic injury in the cervical spine. Mild cervical spondylosis. 4. Fatty infiltration and scattered punctate calcifications within the bilateral parotid glands can be correlated clinically for the possibility of Sjogren's disease.
--- NOTE | ~2023-03-25 | XR_ITS ---
EXAMINATION: XR ELBOW, LEFT CLINICAL INFORMATION: Fall. Pain. COMPARISON: Previous x-ray October 2020 TECHNIQUE: AP, lateral, and oblique views of the left elbow. FINDINGS: No fracture or joint effusion. Alignment is anatomic. Joint spaces are maintained. Osteophyte at the triceps tendon insertion to the olecranon area of soft tissue swelling over the olecranon. XR/XR elbow LT min 3V IMPRESSION: No fracture or dislocation. Soft tissue swelling over the olecranon. Osteophyte at the triceps tendon insertion to the olecranon.
[2023-03-25 13:19] VITALS: BMI 27.4
[2023-03-25 13:31] VITALS: BP 117/68; PULSE 87; RESP 16; TEMP 36.6; O2SAT 96
--- NOTE | 2023-03-25 13:56 | ED.ALCOHOL ---
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 Reports having 1 beer today while at his friend's house. Was playing with a shopping cart and fell backwards, hitting the back of his head and left elbow on the ground. no LOC. Denies fever, chills, dizziness, vision changes, neck or back pain, tingling/numbness/weakness of extremities. Denies any anticoagulation. Denies SI/HI. Denies VH/AH/TH. Denies illicit drug use. Related Data Previous Rx's Medication Instructions Recorded amoxicillin 875 mg-potassium 1 tab PO BID #20 tabs 08/31/22 clavulanate 125 mg tablet folic acid 1 mg tablet 1 mg PO DAILY #30 tabs 08/31/22 prednisone 10 mg tablet See Rx Instructions .Route 08/31/22 .COMPLEX #45 tabs cephalexin 500 mg capsule 500 mg PO Q6H 7 days #28 caps 01/11/23 doxycycline hyclate 100 mg tablet 100 mg PO BID 7 days #14 tabs 01/11/23 Allergies Allergy/AdvReac Type Severity Reaction Status Date / Time clams Allergy Severe HIVES, Verified 01/11/23 13:54 DIFFICULTY BREATHING Review of Systems Review of Systems: Constitutional: No fever, chills, fatigue, night sweats, weight changes ENT/Mouth: No ear pain, hearing loss, nasal congestion, sinus pain, rhinorrhea, sore throat Eyes: No eye pain, swelling, redness, vision changes, discharge Cardio: No chest pain, palpitations, ROSARIO, orthopnea, peripheral edema Pulm: No SOB, cough, sputum, wheezing, dyspnea, hemoptysis GI: No nausea, vomiting, hematemesis, abdominal pain, diarrhea, constipation, hematochezia, melena : No irregular bleeding, dysuria, frequency, urgency, hesitancy, hematuria, flank pain, urinary flow changes, urinary incontinence or retention MSK: No back pain, neck pain, + joint pain, No myalgias Skin: No lesions, rashes Neuro: No weakness, numbness, paresthesias, LOC, dizziness, + headache All other systems reviewed and are negative. [facility] Past Medical History Attestation statement: The following information was validated with the patient. Source: old records reviewed and nursing notes reviewed Medical History High cholesterol HTN (hypertension) ETOH abuse Social History Social History Household Members: None Housing: Homeless Do you presently have visiting nurse or other home services: No Alcohol intake: current Alcohol intake frequency: 3 or more drinks per day Alcohol type: beer Patient Tobacco Use Status: Never used Tobacco Advance Directives: No service: No Current occupational status: unemployed Physical Exam ED Vital Signs: Vital Signs - 24 hr 03/25/23 13:19 03/25/23 13:31 03/25/23 15:03 Temperature 98 F 97.9 F Pulse Rate 87 75 Respiratory Rate 16 14 Blood Pressure 117/68 106/75 Pulse Oximetry 96 100 Oxygen Delivery Method Room Air Room Air Room Air 03/25/23 21:24 03/25/23 23:44 Temperature Pulse Rate 77 88 Respiratory Rate 18 18 Blood Pressure 131/89 109/63 Pulse Oximetry 99 98 Oxygen Delivery Method Room Air Room Air BMI result Body Mass Index 27.4 Vital signs stable. Const Other: Acutely intoxicated, smells of urine General: no acute distress, alert and awake Orientation/consciousness: patient oriented x3 HENMT Head: Yes normal to inspection, Yes No palpable skull fracture present, Yes normocephalic, Yes atraumatic, No abrasion, No Willams's sign, No contusion, No hematoma, No laceration, No raccoon eyes, No scalp lesion, No scalp tenderness and No periorbital ecchymosis Ears: hearing grossly normal bilaterally General nose exam: Normal external nose present Teeth and gingiva: caries and poor dentition Eyes General: appearance normal, both eyes and all related structures Alignment and Position: alignment normal Conjunctivae: conjunctivae normal Sclerae: sclerae normal Corneas: corneas normal Pupils: Equal, round and reactive pupils present EOM: EOMs intact bilaterally Neck Other: + cervical collar in place Neck: Yes normal visual inspection, Yes full ROM and Yes no meningeal signs Chest Chest palpation & inspection: normal inspection of the chest, normal palpation of entire chest wall and no crepitus Resp Effort & Inspection: normal respiratory effort, able to speak in complete sentences and no paradoxical thoraco-abdom movements Auscultation: clear to auscultation bilaterally Cardio Rate: regular rate Rhythm: regular rhythm Heart sounds: S1 normal heart sound present and S2 normal heart sound present Peripheral pulses: Peripheral pulses 2+ throughout GI Inspection: Yes normal to inspection and No abdominal wall ecchymosis Palpation (GI): Soft to palpation, nontender, no guarding, hepatosplenomegaly present and No Rebound tenderness present Back/Spine/Pelvis Other: No midline spinous tenderness. No paraspinal tenderness. No step off or deformity. Pelvis stable. Skin Other: + Small abrasions to the left olecranon without involvement of undelrying structures. Rashes: no rashes Neuro General: patient oriented x3, moves all extremities and no meningeal signs Cranial nerves: Yes CN's II-XII intact bilaterally, Yes Equal, round and reactive pupils present and Yes Nystagmus not present Extrem General: Yes normal to inspection, Yes full ROM and Yes capillary refill normal Course Course Course Narrative: 1514-- CBC without leukocytosis or anemia. Chemistry without acute electrolyte abnormality requiring intervention. Lipase WNL. Ethanol 252. X-ray left elbow without acute fracture or dislocation, as showing soft tissue swelling over the olecranon > possible MSK sprain/strain. 1535-- CT head/C-spine without acute fracture or bleed > as patient's lab work and imaging studies are unremarkable, patient may be metabolized to freedom. Will place patient for discharge. 1542-- physician observation initiated at 1542. Plan at this time is to metabolize to freedom. Diet ordered. 1645-- Signed out to my colleague, Jonatan Preston PA-C Reevaluation(s) Reevaluation #1: 4:45 p.m. receive sign-out with the patient in stable condition pending sober reassessment. 8:30 p.m. patient stretcher had been removed by staff and there was noted to be an empty small bottle of vodka underneath the stretcher. I did not observe the patient drinking any of the alcohol. He is awake and alert at this time and has no physical complaints. 10:00 p.m. patient resting comfortably at this time. No evidence of alcohol withdrawal or intoxication. March 26, 2023. Patient signed out in stable condition to Dr. Mcmahan with a sore reassessment pending in the morning. 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 VSS. Clinical concern for intracranial hemorrhage vs epidural hematoma. Concern for MSK sprain/strain vs fracture vs dislocation. Concern for acute etoh intoxiction vs polysubstance. Plan at this time is to obtain CT head/neck and labs. Differential Diagnosis Differential Diagnoses: The differential diagnosis associated with the presentation includes As above. Admission/Observation Consideration of admission/observation: Escalation of care including admission/observation considered Lab Data [facility] Lab Attestation statement: I reviewed the patient's lab results. As above. 03/25/23 14:24 03/25/23 14:24 Labs: Lab Results 03/25/23 03/25/23 Range/Units 14:24 17:34 WBC 5.7 (4.8-10.8) X10*3/uL RBC 4.83 (4.60-5.80) X10*6/uL Hgb 14.6 (14.0-18.0) g/dl Hct 44.0 (42.0-52.0) % MCV 91.1 (80.0-98.0) fL MCH 30.2 (27.0-33.0) pg MCHC 33.2 (31.0-36.0) g/dl RDW 13.9 (11.0-16.0) % Plt Count 164 (160-400) X10*3/uL MPV 10.9 (9.4-12.4) fL Immature Gran % (Auto) 0.2 (0.0-0.4) % Neut % (Auto) 68.2 (45-73) % Lymph % (Auto) 18.0 L (20-40) % [place] % (Auto) 10.4 (2-11) % Eos % (Auto) 2.8 (0-4) % Baso % (Auto) 0.4 (0-2) % Lymph # (Auto) 1.0 L (1.2-4.9) X10*3/uL [place] # (Auto) 0.6 (0.1-1.2) X10*3/uL Eos # (Auto) 0.2 (0.0-0.4) X10*3/uL Baso # (Auto) 0.0 (0.0-0.2) X10*3/uL Abs Immat Gran (auto) 0.01 (0.00-0.03) X10*3/uL Absolute Neuts (auto) 3.9 (2.0-8.3) x10*3/uL Absolute Nucleated RBC 0.000 (0.0-0.012) X10*3/uL Nucleated RBC % (auto) 0.0 (0.0-0.2) /100WBC PT 12.6 (11.1-13.3) SEC INR 1.0 (0.9-1.1) Sodium 147 H (135-145) mmol/L Potassium 3.3 (3.3-5.1) mmol/L Chloride 114 H (96-108) mmol/L Carbon Dioxide 21 L (22-29) mmol/L Anion Gap 15 (12-20) BUN 13 (9-16) mg/dL Creatinine 0.68 (0.5-1.4) mg/dL Estim Creat Clear Calc 122.8 Estimated GFR > 60 Random Glucose 119 H (60-115) mg/dL Calcium 8.3 L (8.4-10.2) mg/dL Magnesium 2.4 (1.6-2.6) mg/dL Total Bilirubin 0.4 (0.0-1.0) mg/dL AST 28 (5-37) U/L ALT 26 (0-40) U/L Alkaline Phosphatase 59 (39-117) U/L Total Protein 7.1 (6.5-8.0) g/dL Albumin 3.8 (3.5-5.0) g/dL Lipase 66 (8-78) U/L Salicylates < 5.0 L (15-30) mg/dL Urine Opiates Screen Not Detected (Not Detect) Urine Fentanyl Screen Not Detected (Not Detect) Ur Barbiturates Screen Not Detected (Not Detect) Ur Phencyclidine Scrn Not Detected (Not Detect) Ur Amphetamines Screen Not Detected (Not Detect) U Benzodiazepines Scrn Not Detected (Not Detect) Urine Cocaine Screen Not Detected (Not Detect) U Marijuana (THC) Screen Not Detected (Not Detect) Ethyl Alcohol 252 mg/dL Independent Interpretation I performed an independent interpretation of an: Plain X-Ray and CT Scan Interpretation: CT head/ brain without acute bleed, agree with radiologist's interpretation. CT c spine without acute fracture, agree with radiologist's interpretation. Xray L elbow without acute fracture, agree with radiologist's interpretation. Radiology Impression Discussion of test interpretation with radiology: I have reviewed the radiologist's reading. Radiologist Impression: CT head/brain/ cspine wo IV con IMPRESSION: 1. No CT evidence of acute intracranial injury. Stable chronic findings as above. 2. Enlarged left mastoid emissary vein measuring 8 mm may be a benign incidental finding however can be correlated clinically for signs of left-sided pulsatile tinnitus. 3. No evidence of acute traumatic injury in the cervical spine. Mild cervical spondylosis. 4. Fatty infiltration and scattered punctate calcifications within the bilateral parotid glands can be correlated clinically for the possibility of Sjogren's disease. XR elbow LT min 3V IMPRESSION: No fracture or dislocation. Soft tissue swelling over the olecranon. Osteophyte at the triceps tendon insertion to the olecranon. Independent Historian Clinical information obtained from an independent historian. History obtained from or confirmed by: EMS External Record Review External record reviewed: Inpatient record Prescription Management I considered prescription management with: Pain Medication Chronic Conditions Patient?s care impacted by: Other (ETOH abuse, CVA) Critical Care Time Critical Care Time Critical Care Time: No Discharge Plan Discharge Clinical Impression: Alcoholic intoxication, Accident due to mechanical fall without injury Patient Disposition: Home, Self-Care Instructions: Alcohol Intoxication (ED), Abuse of Alcohol (ED), Fall Prevention (ED) Additional Instructions: Your labs today are reassuring. The x-ray of her left elbow did not show acute fracture or dislocation. The treatment for this is to rest, ice, apply compression, elevate the arm. You can also take Tylenol and Motrin as needed for pain. The CT of your head and neck did not show acute fracture or bleed. Do not drink alcohol. This can kill you. Follow-up with your primary care provider this week. Return to the emergency department with new or worsening symptoms. In case of emergency call 911 Prescriptions: No Action folic acid 1 mg Tablet 1 mg PO DAILY Qty: 30 0RF amoxicillin-pot clavulanate 875-125 mg tablet 1 tab PO BID Qty: 20 0RF prednisone 10 mg tablet See Rx Instructions .Route .COMPLEX Qty: 45 0RF Rx Instructions: 10 mg orally; 5 tabs p.o. daily x3 days; 4 tabs p.o. daily x3 days; 3 tabs daily x3 days; 2 tabs daily x3 days; 1 tab daily x3 days cephalexin 500 mg capsule 500 mg PO Q6H 7 Days Qty: 28 0RF doxycycline hyclate 100 mg tablet 100 mg PO BID 7 Days Qty: 14 0RF Referrals: Physician,None [Primary Care Provider] -
[2023-03-25 14:29] LABS: MANUAL DIFF FLAG NO
[2023-03-25 14:30] LABS: Basophils Percent Auto 0.4 % (0-2); Eosinophils Absolute Auto 0.2 X10*3/uL (0.0-0.4); Eosinophils Percent Auto 2.8 % (0-4); Hemoglobin 14.6 g/dl (14.0-18.0); Imm Gran Abs Auto 0.01 X10*3/uL (0.00-0.03); Imm Gran Pct Auto 0.2 % (0.0-0.4); Mean Corpuscular HGB Conc 33.2 g/dl (31.0-36.0); Mean Corpuscular Hemoglobin 30.2 pg (27.0-33.0); Mean Corpuscular Volume 91.1 fL (80.0-98.0); Mean Platelet Volume 10.9 fL (9.4-12.4); Monocytes Absolute Auto 0.6 X10*3/uL (0.1-1.2); Monocytes Percent Auto 10.4 % (2-11); Neutrophils Absolute Auto 3.9 x10*3/uL (2.0-8.3); Neutrophils Percent Auto 68.2 % (45-73); Platelet Count 164 X10*3/uL (160-400); Red Blood Count 4.83 X10*6/uL (4.60-5.80); Red Cell Distribution Width 13.9 % (11.0-16.0); White Blood Count 5.7 X10*3/uL (4.8-10.8)
[2023-03-25 14:38] LABS: Prothrombin Time 12.6 SEC (11.1-13.3)
[2023-03-25 14:48] LABS: Alanine Aminotransferase 26 U/L (0-40); Albumin Level 3.8 g/dL (3.5-5.0); Alkaline Phosphatase 59 U/L (39-117); Anion Gap 15 (12-20); Aspartate Amino Transferase 28 U/L (5-37); Bilirubin Total 0.4 mg/dL (0.0-1.0); Blood Urea Nitrogen 13 mg/dL (9-16); Calcium 8.3 mg/dL (8.4-10.2); Carbon Dioxide 21 mmol/L (22-29); Chloride 114 mmol/L (96-108); Creatinine Clr Calc Pharmacy 122.8; Estimated Glomerular Filt Rate > 60; Ethanol 252 mg/dL; Glucose Random 119 mg/dL (60-115); Lipase 66 U/L (8-78); Magnesium 2.4 mg/dL (1.6-2.6); Potassium 3.3 mmol/L (3.3-5.1); Sodium 147 mmol/L (135-145); Total Protein 7.1 g/dL (6.5-8.0)
[2023-03-25 14:52] LABS: Salicylate < 5.0 mg/dL (15-30)
[2023-03-25 15:03] VITALS: BP 106/75; PULSE 75; RESP 14; TEMP 36.6; O2SAT 100
--- NOTE | 2023-03-25 15:42 | MHC.EDTECH ---
patient urinated on himself in the bed. Patient was cleaned up and bedding was changed.
[2023-03-25 17:50] LABS: Amphetamine Screen Urine Not Detected (Not Detect); Barbiturates, Urine Not Detected (Not Detect); Benzodiazepines Screen Urine Not Detected (Not Detect); Cannabinoid Screen Urine Not Detected (Not Detect); Cocaine Screen Urine Not Detected (Not Detect); Fentanyl, urine Not Detected (Not Detect); Opiate Screen Urine Not Detected (Not Detect); Phencyclidine Screen Urine Not Detected (Not Detect)
--- NOTE | 2023-03-25 20:45 | PC.NURSE ---
pt changed over, security has belonging
[2023-03-25 21:24] VITALS: BP 131/89; PULSE 77; RESP 18; O2SAT 99
[2023-03-25 23:44] VITALS: BP 109/63; PULSE 88; RESP 18; O2SAT 98
== END 2023-03-26 06:28 | disposition home or self-care (01) ==
PROVIDERS: Physician Assistant Medical; Emergency Provider Emergency Medicine
DX: F10.220 Alcohol dependence with intoxication, uncomplicated (principal); Y90.8 Blood alcohol level of 240 mg/100 ml or more; S50.312A Abrasion of left elbow, initial encounter; W17.82XA Fall from (out of) grocery cart, initial encounter; I10 Essential (primary) hypertension; E78.5 Hyperlipidemia, unspecified; Y93.83 Activity, rough housing and horseplay; Y92.9 Unspecified place or not applicable; Y99.9 Unspecified external cause status; Z79.899 Other long term (current) drug therapy
CPT/HCPCS: 36415; 70450; 72125; 73080; 80053; 80179; 80307; 83690; 83735; 85025; 85610; 99284

== ENCOUNTER 2023-03-27 15:39 | Emergency (ER) | payer MEDICAID, SELFPAY ==
--- NOTE | ~2023-03-27 | CT_ITS ---
EXAMINATION: CT HEAD WITHOUT CONTRAST CT CERVICAL SPINE WITHOUT CONTRAST CLINICAL INFORMATION: Fall with head strike. COMPARISON: CT imaging from 03/25/2023. TECHNIQUE: Contiguous axial imaging was performed from the skullbase to vertex without intravenous administration of contrast. Multidetector helical imaging was performed through the cervical spine. This CT examination was performed using dose optimization techniques as appropriate, variously including the following: *Automated exposure control *Adjustment of mA and/or kV according to patient size (this includes techniques or standardized protocols for targeted exams where dose is matched to indication/reason for exam; i.e. extremities or head) *Use of iterative reconstruction technique DLP: 716 mGy-cm. FINDINGS: HEAD: There is no evidence of acute intracranial hemorrhage or territorial infarction. No abnormal mass effect or midline shift is seen. Lemus to white matter differentiation is well preserved. No extra-axial fluid collections are identified. Incidental jacklyn cisterna magna noted. The ventricles are normal in size. Brain parenchymal attenuation is normal. The osseous structures and soft tissues are normal. The mastoid air cells are well aerated. There is mild mucosal thickening in the paranasal sinuses. CERVICAL SPINE: No acute fracture or subluxation is identified in the cervical spine. There is a leftward curvature of the cervical spine. Multilevel right-sided facet arthropathy noted with foraminal encroachment. The disc spaces are maintained. The atlantoaxial articulation is normally maintained. The paraspinal soft tissues are normal. Nonspecific interlobular septal thickening noted at the lung apices. Chronic fatty atrophic changes noted in the parotid glands bilaterally with small scattered calcifications. CT/CT cervical spine wo IV con IMPRESSION: 1. No acute intracranial pathology. 2. No evidence of acute cervical spine traumatic injury. Leftward curvature of the cervical spine with multilevel right-sided cervical facet arthrosis. 3. Chronic fatty atrophic changes in the parotid glands with scattered small calcifications, presumably due to the sequelae of a prior inflammatory or autoimmune disease process. 4. Nonspecific partially visualized interlobular septal thickening at the lung apices. Findings may be due to underlying interstitial lung disease, as described on prior chest CT imaging from 09/01/2022.
[2023-03-27 15:45] VITALS: BP 120/76; BP 140/92; PULSE 86; PULSE 93; RESP 16; TEMP 36.4; O2SAT 96; O2SAT 98; BMI 25.1
--- NOTE | 2023-03-27 15:54 | ED.ALCOHOL ---
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 States that he fell backwards and hit his head on the ground. Denies LOC. Endorses drinking 2 beers today. Seeking detox. Denies vision changes, headache, fever, tremors, chest pain, shortness of breath, nausea/vomiting, abdominal pain, LE swelling or pain. Denies illicit drug use. Denies SI/HI. Denies visual, auditory, tactile hallucinations. Not on AC. Poor historian as patient is acutely intoxicated. Related Data Previous Rx's Medication Instructions Recorded amoxicillin 875 mg-potassium 1 tab PO BID #20 tabs 08/31/22 clavulanate 125 mg tablet folic acid 1 mg tablet 1 mg PO DAILY #30 tabs 08/31/22 prednisone 10 mg tablet See Rx Instructions .Route 08/31/22 .COMPLEX #45 tabs cephalexin 500 mg capsule 500 mg PO Q6H 7 days #28 caps 01/11/23 doxycycline hyclate 100 mg tablet 100 mg PO BID 7 days #14 tabs 01/11/23 Allergies Allergy/AdvReac Type Severity Reaction Status Date / Time clams Allergy Severe HIVES, Verified 01/11/23 13:54 DIFFICULTY BREATHING Review of Systems Review of Systems: Constitutional: No fever, chills, fatigue, night sweats, weight changes ENT/Mouth: No ear pain, hearing loss, nasal congestion, sinus pain, rhinorrhea, sore throat Eyes: No eye pain, swelling, redness, vision changes, discharge Cardio: No chest pain, palpitations, ROSARIO, orthopnea, peripheral edema Pulm: No SOB, cough, sputum, wheezing, dyspnea, hemoptysis GI: No nausea, vomiting, hematemesis, abdominal pain, diarrhea, constipation, hematochezia, melena : No irregular bleeding, dysuria, frequency, urgency, hesitancy, hematuria, flank pain, urinary flow changes, urinary incontinence or retention MSK: No back pain, neck pain, joint pain, myalgias Skin: No lesions, rashes Neuro: No weakness, numbness, paresthesias, LOC, +dizziness, No headache All other systems reviewed and are negative. History limited due to acute alcohol intoxication. [facility] Past Medical History Attestation statement: The following information was validated with the patient. Source: old records reviewed and nursing notes reviewed Medical History High cholesterol HTN (hypertension) ETOH abuse Social History Social History Household Members: None Housing: Homeless Do you presently have visiting nurse or other home services: No Alcohol intake: current Alcohol intake frequency: 3 or more drinks per day Alcohol type: hard liquor Patient Tobacco Use Status: Never used Tobacco Smoked in Last 30 Days: No Use of substances other than those prescribed or required for medical reasons: No Advance Directives: No Advance Directives Information Provided: No service: No Current occupational status: unemployed Physical Exam ED Vital Signs: Vital Signs - 24 hr 03/27/23 15:45 03/27/23 16:15 Temperature 97.6 F Pulse Rate 86 Respiratory Rate 16 16 Blood Pressure 120/76 Pulse Oximetry 96 Oxygen Delivery Method Room Air BMI result Body Mass Index 25.1 Vital signs are stable. Const Other: Acutely intoxicated with slurred speech. General: no acute distress, alert and awake Orientation/consciousness: patient oriented x3 Limitations: no limitations [facility] Head: Yes normal to inspection, Yes No palpable skull fracture present, Yes normocephalic, Yes atraumatic, No Willams's sign, No raccoon eyes, No scalp tenderness and No periorbital ecchymosis Ears: hearing grossly normal bilaterally General nose exam: Normal external nose present Eyes General: appearance normal, both eyes and all related structures Pupils: Dilated pupils EOM: EOMs intact bilaterally Neck Other: Patient did not arrive in cervical collar. Neck: Yes normal visual inspection, Yes full ROM, Yes no meningeal signs and No midline deformity Chest Chest palpation & inspection: normal inspection of the chest and normal palpation of entire chest wall Resp Effort & Inspection: normal respiratory effort, able to speak in complete sentences and symmetric chest movement Auscultation: clear to auscultation bilaterally Cardio Rate: regular rate Rhythm: regular rhythm Heart sounds: S1 normal heart sound present and S2 normal heart sound present Peripheral pulses: Peripheral pulses 2+ throughout GI Inspection: Yes normal to inspection and No abdominal wall ecchymosis Palpation (GI): Soft to palpation, nontender, no guarding, hepatosplenomegaly present and No Rebound tenderness present Back/Spine/Pelvis Other: No midline spinous tenderness. No paraspinal muscle tenderness. No step-off or deformity. Back: No erythema, No warmth, No ecchymosis and No Lemus-Contreras sign present Skin General skin exam: no rashes or lesions noted Neuro Other: Unable to assess gait due to patient's acute intoxication. No tongue fasciculations. No asterixis. General: patient oriented x3, moves all extremities and no meningeal signs Cranial nerves: Yes CN's II-XII intact bilaterally and Yes Nystagmus not present Extrem General: Yes normal to inspection and Yes full ROM Course Course Course Narrative: 1605-- On initial examination patient is denying any drug use in tells me he drank 2 beers prior to coming in. As this is patient's 3rd fall this week due to acute intoxication, another CT head and cervical spine will be ordered to rule out bleed. > awaiting basic labs, urine drug screen, CT head/C-spine 1620-- signed out to my colleague, Sunny Reevaluation(s) Reevaluation #1: Clinical sobriety alert and oriented x3 ambulatory with a steady gait. No physical complaints at this time. Declines interest in detox. CT of the head and cervical spine are without acute intracranial abnormality no evidence of fracture traumatic subluxation Time: 22:26 Medical Decision Making Medical Decision Making [facility] Narrative: 53 year old male with a PMHx of etoh dependency, HLD, HTN, PNA, CVA with residual Left facial droop and LUE/LLE weakness, presents to the ED today via EMS with a complaint of acute alcohol intoxication with mechanical fall 1 hour prior to arrival. Vital signs stable. Patient nontoxic appearing in no acute distress. Patient's exam unremarkable. Head is normocephalic, atraumatic, no palpable fracture. No midline spinous or paraspinal tenderness. No deformity or step-offs. Neuro exam nonfocal. Normal finger to nose, heel to merritt. No tongue fasciculations. No asterixis. Clinical suspicion for acute intoxication vs polysubstance use. Concern for MSK sprain/strain vs fracture. Concern for intracranial hemorrhage vs epidural hematoma vs skull fracture. Plan at this time is to obtain basic labs, ethanol, urine drug screen, CT head/C-spine, and medical clearance for care team. Differential Diagnosis Differential Diagnoses: The differential diagnosis associated with the presentation includes As above. Admission/Observation Not indicated. Lab Data 03/27/23 16:08 03/27/23 16:08 Labs: Lab Results 03/27/23 03/27/23 Range/Units 16:08 19:09 WBC 3.9 L (4.8-10.8) X10*3/uL RBC 4.67 (4.60-5.80) X10*6/uL Hgb 14.3 (14.0-18.0) g/dl Hct 42.7 (42.0-52.0) % MCV 91.4 (80.0-98.0) fL MCH 30.6 (27.0-33.0) pg MCHC 33.5 (31.0-36.0) g/dl RDW 14.0 (11.0-16.0) % Plt Count 154 L (160-400) X10*3/uL MPV 11.3 (9.4-12.4) fL Immature Gran % (Auto) 0.3 (0.0-0.4) % Neut % (Auto) 62.2 (45-73) % Lymph % (Auto) 19.1 L (20-40) % [place] % (Auto) 13.5 H (2-11) % Eos % (Auto) 4.6 H (0-4) % Baso % (Auto) 0.3 (0-2) % Lymph # (Auto) 0.8 L (1.2-4.9) X10*3/uL [place] # (Auto) 0.5 (0.1-1.2) X10*3/uL Eos # (Auto) 0.2 (0.0-0.4) X10*3/uL Baso # (Auto) 0.0 (0.0-0.2) X10*3/uL Abs Immat Gran (auto) 0.01 (0.00-0.03) X10*3/uL Absolute Neuts (auto) 2.4 (2.0-8.3) x10*3/uL Absolute Nucleated RBC 0.000 (0.0-0.012) X10*3/uL Nucleated RBC % (auto) 0.0 (0.0-0.2) /100WBC Sodium 144 (135-145) mmol/L Potassium 3.6 (3.3-5.1) mmol/L Chloride 111 H (96-108) mmol/L Carbon Dioxide 22 (22-29) mmol/L Anion Gap 15 (12-20) BUN 13 (9-16) mg/dL Creatinine 0.82 (0.5-1.4) mg/dL Estim Creat Clear Calc 104.1 Estimated GFR > 60 Random Glucose 103 (60-115) mg/dL Calcium 8.3 L (8.4-10.2) mg/dL Magnesium 2.3 (1.6-2.6) mg/dL Total Bilirubin 0.4 (0.0-1.0) mg/dL AST 31 (5-37) U/L ALT 26 (0-40) U/L Alkaline Phosphatase 58 (39-117) U/L Total Creatine Kinase 147 (38-174) U/L Total Protein 7.1 (6.5-8.0) g/dL Albumin 3.7 (3.5-5.0) g/dL Lipase 61 (8-78) U/L Salicylates < 5.0 L (15-30) mg/dL Urine Opiates Screen Not Detected (Not Detect) Urine Fentanyl Screen Not Detected (Not Detect) Ur Barbiturates Screen Not Detected (Not Detect) Ur Phencyclidine Scrn Not Detected (Not Detect) Ur Amphetamines Screen Not Detected (Not Detect) U Benzodiazepines Scrn Not Detected (Not Detect) Urine Cocaine Screen Not Detected (Not Detect) U Marijuana (THC) Screen Not Detected (Not Detect) Ethyl Alcohol 205 mg/dL Radiology Impression Discussion of test interpretation with radiology: I have reviewed the radiologist's reading. Radiologist Impression: CT/CT head/brain wo IV con IMPRESSION: 1. No acute intracranial pathology. 2. No evidence of acute cervical spine traumatic injury. Leftward curvature of the cervical spine with multilevel right-sided cervical facet arthrosis. 3. Chronic fatty atrophic changes in the parotid glands with scattered small calcifications, presumably due to the sequelae of a prior inflammatory or autoimmune disease process. 4. Nonspecific partially visualized interlobular septal thickening at the lung apices. Findings may be due to underlying interstitial lung disease, as described on prior chest CT imaging from 09/01/2022. Independent Historian Clinical information obtained from an independent historian. History obtained from or confirmed by: EMS External Record Review External record reviewed: Inpatient record Chronic Conditions Patient?s care impacted by: Other (ETOH abuse, CVA) Critical Care Time Critical Care Time Critical Care Time: No Discharge Plan Discharge Clinical Impression: ETOH abuse, Fall, Head injury without concussion or intracranial hemorrhage Patient Disposition: Home, Self-Care Instructions: Head Injury (ED), Abuse of Alcohol (ED) Prescriptions: No Action folic acid 1 mg Tablet 1 mg PO DAILY Qty: 30 0RF amoxicillin-pot clavulanate 875-125 mg tablet 1 tab PO BID Qty: 20 0RF prednisone 10 mg tablet See Rx Instructions .Route .COMPLEX Qty: 45 0RF Rx Instructions: 10 mg orally; 5 tabs p.o. daily x3 days; 4 tabs p.o. daily x3 days; 3 tabs daily x3 days; 2 tabs daily x3 days; 1 tab daily x3 days cephalexin 500 mg capsule 500 mg PO Q6H 7 Days Qty: 28 0RF doxycycline hyclate 100 mg tablet 100 mg PO BID 7 Days Qty: 14 0RF Interventions: ED Discharge Assessment Last Done: 03/27/23 22:52 Discharge Date/Time: 03/27/23 22:53
[2023-03-27 16:13] LABS: MANUAL DIFF FLAG NO
[2023-03-27 16:15] VITALS: RESP 16
[2023-03-27 16:17] LABS: Basophils Percent Auto 0.3 % (0-2); Eosinophils Absolute Auto 0.2 X10*3/uL (0.0-0.4); Eosinophils Percent Auto 4.6 % (0-4); Hematocrit 42.7 % (42.0-52.0); Hemoglobin 14.3 g/dl (14.0-18.0); Imm Gran Abs Auto 0.01 X10*3/uL (0.00-0.03); Imm Gran Pct Auto 0.3 % (0.0-0.4); Lymphocytes Absolute Auto 0.8 X10*3/uL (1.2-4.9); Lymphocytes Percent Auto 19.1 % (20-40); Mean Corpuscular HGB Conc 33.5 g/dl (31.0-36.0); Mean Corpuscular Hemoglobin 30.6 pg (27.0-33.0); Mean Corpuscular Volume 91.4 fL (80.0-98.0); Mean Platelet Volume 11.3 fL (9.4-12.4); Monocytes Absolute Auto 0.5 X10*3/uL (0.1-1.2); Monocytes Percent Auto 13.5 % (2-11); Neutrophils Absolute Auto 2.4 x10*3/uL (2.0-8.3); Neutrophils Percent Auto 62.2 % (45-73); Platelet Count 154 X10*3/uL (160-400); Red Blood Count 4.67 X10*6/uL (4.60-5.80); White Blood Count 3.9 X10*3/uL (4.8-10.8)
[2023-03-27 16:30] LABS: Anion Gap 15 (12-20)
[2023-03-27 16:31] LABS: Salicylate < 5.0 mg/dL (15-30)
[2023-03-27 16:37] LABS: Alanine Aminotransferase 26 U/L (0-40); Albumin Level 3.7 g/dL (3.5-5.0); Alkaline Phosphatase 58 U/L (39-117); Aspartate Amino Transferase 31 U/L (5-37); Bilirubin Total 0.4 mg/dL (0.0-1.0); Blood Urea Nitrogen 13 mg/dL (9-16); Calcium 8.3 mg/dL (8.4-10.2); Carbon Dioxide 22 mmol/L (22-29); Chloride 111 mmol/L (96-108); Creatinine Clr Calc Pharmacy 104.1; Estimated Glomerular Filt Rate > 60; Ethanol 205 mg/dL; Glucose Random 103 mg/dL (60-115); Lipase 61 U/L (8-78); Magnesium 2.3 mg/dL (1.6-2.6); Potassium 3.6 mmol/L (3.3-5.1); Sodium 144 mmol/L (135-145); Total Protein 7.1 g/dL (6.5-8.0)
[2023-03-27 19:31] LABS: Amphetamine Screen Urine Not Detected (Not Detect); Barbiturates, Urine Not Detected (Not Detect); Benzodiazepines Screen Urine Not Detected (Not Detect); Cannabinoid Screen Urine Not Detected (Not Detect); Cocaine Screen Urine Not Detected (Not Detect); Fentanyl, urine Not Detected (Not Detect); Opiate Screen Urine Not Detected (Not Detect); Phencyclidine Screen Urine Not Detected (Not Detect)
--- NOTE | 2023-03-27 19:34 | PC.NURSE ---
pt resting in stretcher ciwa 0. requesting food/drink. denies questions/concerns at this time.
--- NOTE | 2023-03-27 22:26 | PC.NURSE ---
pt continues to rest on stretcher in hallways, respiraitons even and unlabored, skin pink warm and slightly moist with sweat. Pt offers no complaints to this RN, ate 100% of dinner
== END 2023-03-27 22:53 | disposition home or self-care (01) ==
PROVIDERS: Physician Assistant Medical; Emergency Provider Emergency Medicine
DX: S09.90XA Unspecified injury of head, initial encounter (principal); F10.10 Alcohol abuse, uncomplicated; Y90.7 Blood alcohol level of 200-239 mg/100 ml; R51.9 Headache, unspecified; M54.2 Cervicalgia; X58.XXXA Exposure to other specified factors, initial encounter; Y93.9 Activity, unspecified; Y92.9 Unspecified place or not applicable; Y99.9 Unspecified external cause status; Z79.899 Other long term (current) drug therapy
CPT/HCPCS: 36415; 70450; 72125; 80053; 80179; 80307; 82550; 83690; 83735; 85025; 99284

== ENCOUNTER 2023-03-28 21:05 | Emergency (ER) | payer MEDICAID, SELFPAY ==
--- NOTE | ~2023-03-28 | CT_ITS ---
EXAMINATION: CT HEAD WITHOUT CONTRAST CT CERVICAL SPINE WITHOUT CONTRAST CLINICAL INFORMATION: Fall. Neck pain. EtOH. COMPARISON: CT head and cervical spine from 03/27/2023. TECHNIQUE: Contiguous axial imaging was performed from the skull base to vertex without intravenous administration of contrast. Contiguous axial imaging was performed from the upper chest through the skull base without intravenous administration of contrast. Coronal and sagittal reformats were obtained at the acquisition workstation. This CT examination was performed using dose optimization techniques as appropriate, variously including the following: *Automated exposure control. *Adjustment of mA and/or kV according to patient size (this includes techniques or standardized protocols for targeted exams where dose is matched to indication/reason for exam; i.e. extremities or head). *Use of iterative reconstruction technique. DLP: 1727 mGy-cm FINDINGS: Head: Moderately motion degraded exam. There is no evidence of acute intracranial hemorrhage or edematous territorial infarction. Elmus-white matter differentiation is preserved. There is no abnormal attenuation within the brain parenchyma. Proportional prominence of the ventricles and sulcal spaces without evidence of obstructive hydrocephalus. No abnormal mass effect or midline shift. No extra-axial fluid collections. No acute soft tissue or osseous abnormalities. Mild mucosal thickening of the paranasal sinuses. Moderate leftward nasal septal deviation. The mastoid air cells and middle ear cavities are clear. Multifocal odontogenic enamel erosions and periapical lucencies. Cervical Spine: The atlantooccipital and atlantoaxial articulations remain well aligned. Straightening of the normal cervical lordosis. Otherwise, there is anatomic alignment of the vertebral bodies and posterior elements. No evidence of acute fracture or subluxation. The vertebral body heights are maintained. Mild degenerative disc disease from C2-C6. There is no prevertebral soft tissue swelling. Fatty atrophy of the parotid glands with punctate calcifications. The thyroid gland and remaining cervical soft tissues are within normal limits. The lung apices demonstrate no abnormalities. CT/CT cervical spine wo IV con IMPRESSION: 1. No evidence of acute intracranial hemorrhage or edematous territorial infarction. 2. No evidence of acute fracture or traumatic subluxation of the cervical spine.
--- NOTE | ~2023-03-28 | XR_ITS ---
EXAMINATION: XR LUMBOSACRAL SPINE CLINICAL INFORMATION: Back pain. COMPARISON: 10/01/2021 TECHNIQUE: Three views of the lumbosacral spine. FINDINGS: There is again seen anterolisthesis L5 over S1 with likely bilateral L5 spondylolysis and L5-S1 degenerative change. There is an L1 compression fracture again seen stable in appearance. There are bridging anterolateral osteophytes similar to previous. The soft tissues are unremarkable. 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 Stable L1 compression fracture. No acute abnormality identified.
[2023-03-28 21:14] VITALS: BP 126/88; PULSE 100; O2SAT 99
[2023-03-28 21:21] VITALS: BMI 27.4
--- NOTE | 2023-03-28 21:37 | ED.FALL ---
HPI - Fall General Chief Complaint: Fall Stated Complaint: FALL Time Seen by Provider: 03/28/23 21:16 Source: patient Mode of arrival: EMS Limitations: no limitations History of Present Illness HPI Narrative: Patient comes to the emergency room complaining of a mechanical fall on the sidewalk. Patient states that he tripped over the edge of the sidewalk and landed backwards hitting the back of his head. The patient complaining of mild posterior neck pain. Denies losing consciousness. Patient is not on blood thinners, patient known to drink alcohol. Patient states that he drank his usual amount. Patient also complaining of lumbar pain after fall, denies urinary/fecal incontinence/retention. Related Data Previous Rx's Medication Instructions Recorded amoxicillin 875 mg-potassium 1 tab PO BID #20 tabs 08/31/22 clavulanate 125 mg tablet folic acid 1 mg tablet 1 mg PO DAILY #30 tabs 08/31/22 prednisone 10 mg tablet See Rx Instructions .Route 08/31/22 .COMPLEX #45 tabs cephalexin 500 mg capsule 500 mg PO Q6H 7 days #28 caps 01/11/23 doxycycline hyclate 100 mg tablet 100 mg PO BID 7 days #14 tabs 01/11/23 Allergies Allergy/AdvReac Type Severity Reaction Status Date / Time clams Allergy Severe HIVES, Verified 01/11/23 13:54 DIFFICULTY BREATHING Review of Systems Review of Systems: Constitutional : No Weight loss, No Fever, No Chills, No Night Sweats, No Fatigue, No Malaise ENT/Mouth : No Hearing loss, No Ear Pain, No Nasal Congestion, No Sinus Pain, No Hoarseness, No sore throat, No Rhinorrhea, No Swallowing Difficulty Eyes: No Eye Pain, No Swelling, No Redness, No Foreign Body, No Discharge, No Vision Changes Cardiovascular : No Chest Pain, No SOB, No Dyspnea on Exertion, No Orthopnea, No Edema, No Palpitations Respiratory : No Cough, No Sputum, No Wheezing, No Smoke Exposure, No Dyspnea Gastrointestinal : No Nausea, No Vomiting, No Diarrhea, No Constipation, No abdominal Pain, No Hematochezia, No Melena Genitourinary : no irregular bleeding, No Dysuria, No Urinary Frequency, No Hematuria, No Urinary Incontinence, No Urgency, No Flank Pain, No Urinary Flow Changes, No Hesitancy Musculoskeletal : Complaining of mild posterior neck pain and lumbar pain Skin : No Skin Lesions, No rash Neuro : No Weakness, No Numbness, No Paresthesias, No Loss of Consciousness, No Dizziness, No Headache Psych : No Anxiety/Panic, No Depression, No SI/HI/AH/VH, No Social Issues, Heme/Lymph: No Bruising, No Bleeding,No Lymphadenopathy Endocrine : No Polyuria, No Polydipsia, No Temperature Intolerance ON LICENSE OF [facility] Past Medical History Medical History High cholesterol HTN (hypertension) ETOH abuse Social History Social History Household Members: None Housing: Homeless Do you presently have visiting nurse or other home services: No Alcohol intake: current Alcohol intake frequency: 3 or more drinks per day Alcohol type: hard liquor Patient Tobacco Use Status: Never used Tobacco Smoked in Last 30 Days: No Use of substances other than those prescribed or required for medical reasons: No Advance Directives: No Advance Directives Information Provided: No service: No Current occupational status: unemployed Physical Exam Vital Signs: Vital Signs: Last Vital Signs Temp 98.2 F 03/28/23 23:32 Pulse 84 03/28/23 23:32 Resp 16 03/28/23 23:32 BP 123/72 03/28/23 23:32 Pulse Ox 98 03/28/23 23:32 O2 Del Method Room Air 03/28/23 23:32 BMI result Body Mass Index 27.4 Const: Other: Appearance: Alert. Oriented X3. No acute distress. Patient is clinically sober Eyes: Pupils equal, round and reactive to light. ENT: Pharynx normal. Neck: On C-collar, complaining of mild neck pain, no palpable step-offs, no C-spine tenderness CVS: Normal heart rate and rhythm. Pulses normal. Normal S1 and S2 Respiratory: No respiratory distress. Breath sounds normal. No Wheezing. No rales Abdomen: Soft and nontender. No rigidity. No distention. Skin: Skin warm and dry. Normal skin color. Normal skin turgor. Extremities: No lower extremity edema. No Lacerations. No Rash Neuro: Oriented X 3. No motor deficit. No sensory deficit. Moving all extremities. No slurred speech. CN 2 through 12 grossly intact Psych: calm, cooperative, normal affect Course Course Course Narrative: -patient clinically sober -CT scan of the head and neck pending, x-rays of the lumbar spine pending Medical Decision Making Medical Decision Making [facility] Narrative: -patient's vitals are stable -my interpretation a head CT: No intracranial bleed -patient resting comfortably. C-collar removed -find a position of x-ray of lumbar spine: No fracture -plan: Metabolized to freedom Differential Diagnosis Differential Diagnoses: The differential diagnosis associated with the presentation includes (Fall, back contusion, EtOH intoxication) Independent Interpretation I performed an independent interpretation of an: Plain X-Ray and CT Scan Radiology Impression Discussion of test interpretation with radiology: I have reviewed the radiologist's reading. Radiologist Impression: INDINGS: Head: Moderately motion degraded exam. There is no evidence of acute intracranial hemorrhage or edematous territorial infarction. Lemus-white matter differentiation is preserved. There is no abnormal attenuation within the brain parenchyma. Proportional prominence of the ventricles and sulcal spaces without evidence of obstructive hydrocephalus. No abnormal mass effect or midline shift. No extra-axial fluid collections. No acute soft tissue or osseous abnormalities. Mild mucosal thickening of the paranasal sinuses. Moderate leftward nasal septal deviation. The mastoid air cells and middle ear cavities are clear. Multifocal odontogenic enamel erosions and periapical lucencies. Cervical Spine: The atlantooccipital and atlantoaxial articulations remain well aligned. Straightening of the normal cervical lordosis. Otherwise, there is anatomic alignment of the vertebral bodies and posterior elements. No evidence of acute fracture or subluxation. The vertebral body heights are maintained. Mild degenerative disc disease from C2-C6. There is no prevertebral soft tissue swelling. Fatty atrophy of the parotid glands with punctate calcifications. The thyroid gland and remaining cervical soft tissues are within normal limits. The lung apices demonstrate no abnormalities. CT/CT cervical spine wo IV con IMPRESSION: 1. No evidence of acute intracranial hemorrhage or edematous territorial infarction. 2. No evidence of acute fracture or traumatic subluxation of the cervical spine. FINDINGS: There is again seen anterolisthesis L5 over S1 with likely bilateral L5 spondylolysis and L5-S1 degenerative change. There is an L1 compression fracture again seen stable in appearance. There are bridging anterolateral osteophytes similar to previous. The soft tissues are unremarkable. 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 Stable L1 compression fracture. No acute abnormality identified. Discharge Plan Discharge Clinical Impression: Fall, Contusion of head, Back contusion Patient Disposition: Home, Self-Care Instructions: Contusion in Adults (ED) Prescriptions: No Action folic acid 1 mg Tablet 1 mg PO DAILY Qty: 30 0RF amoxicillin-pot clavulanate 875-125 mg tablet 1 tab PO BID Qty: 20 0RF prednisone 10 mg tablet See Rx Instructions .Route .COMPLEX Qty: 45 0RF Rx Instructions: 10 mg orally; 5 tabs p.o. daily x3 days; 4 tabs p.o. daily x3 days; 3 tabs daily x3 days; 2 tabs daily x3 days; 1 tab daily x3 days cephalexin 500 mg capsule 500 mg PO Q6H 7 Days Qty: 28 0RF doxycycline hyclate 100 mg tablet 100 mg PO BID 7 Days Qty: 14 0RF
[2023-03-28 21:48] VITALS: BP 111/81; PULSE 72; RESP 16; TEMP 36.9; O2SAT 98
[2023-03-28 23:32] VITALS: BP 123/72; PULSE 84; RESP 16; TEMP 36.8; O2SAT 98
== END 2023-03-29 02:15 | disposition home or self-care (01) ==
PROVIDERS: Emergency Provider Emergency Medicine
DX: S00.03XA Contusion of scalp, initial encounter (principal); S30.0XXA Contusion of lower back and pelvis, initial encounter; W10.1XXA Fall (on)(from) sidewalk curb, initial encounter; F10.20 Alcohol dependence, uncomplicated; Y90.9 Presence of alcohol in blood, level not specified; R26.81 Unsteadiness on feet; Y93.01 Activity, walking, marching and hiking; Y92.480 Sidewalk as the place of occurrence of the external cause; Y99.9 Unspecified external cause status
CPT/HCPCS: 70450; 72100; 72125; 99284

== ENCOUNTER 2023-04-06 12:10 | Emergency (ER) | payer MEDICAID, SELFPAY ==
--- NOTE | ~2023-04-06 | CT_ITS ---
EXAMINATION: CT HEAD WITHOUT CONTRAST CT CERVICAL SPINE WITHOUT CONTRAST CLINICAL INFORMATION: Trauma. Pain. COMPARISON: None available. TECHNIQUE: Contiguous axial imaging was performed from the skull base to vertex without intravenous administration of contrast. This CT examination was performed using dose optimization techniques as appropriate, variously including the following: *Automated exposure control *Adjustment of mA and/or kV according to patient size (this includes techniques or standardized protocols for targeted exams where dose is matched to indication/reason for exam; i.e. extremities or head) *Use of iterative reconstruction technique DLP: 772.82 mGy-cm FINDINGS: The lateral, third and fourth ventricles are normally outlined. The cortical sulci and basal cisterns are normally outlined as well. There is no acute territorial defect, hemorrhage or midline shift. The extra-axial spaces are unremarkable. Calvarium: Intact. Maxillofacial sinuses and mastoids: Clear as visualized. Cervical spine: The vertebral bodies are normally aligned. The disc spaces are maintained. There is mild bilateral facet osteophytic hypertrophic change. The bone mineralization is normal. There is no fracture. The soft tissues are unremarkable. Visualized upper lung santos are clear. CT/CT head/brain wo IV con IMPRESSION: No acute intracranial abnormality. No cervical fracture.
--- NOTE | ~2023-04-06 | CT_ITS ---
EXAMINATION: CT HEAD WITHOUT CONTRAST CT CERVICAL SPINE WITHOUT CONTRAST CLINICAL INFORMATION: Trauma. Pain. COMPARISON: None available. TECHNIQUE: Contiguous axial imaging was performed from the skull base to vertex without intravenous administration of contrast. This CT examination was performed using dose optimization techniques as appropriate, variously including the following: *Automated exposure control *Adjustment of mA and/or kV according to patient size (this includes techniques or standardized protocols for targeted exams where dose is matched to indication/reason for exam; i.e. extremities or head) *Use of iterative reconstruction technique DLP: 772.82 mGy-cm FINDINGS: The lateral, third and fourth ventricles are normally outlined. The cortical sulci and basal cisterns are normally outlined as well. There is no acute territorial defect, hemorrhage or midline shift. The extra-axial spaces are unremarkable. Calvarium: Intact. Maxillofacial sinuses and mastoids: Clear as visualized. Cervical spine: The vertebral bodies are normally aligned. The disc spaces are maintained. There is mild bilateral facet osteophytic hypertrophic change. The bone mineralization is normal. There is no fracture. The soft tissues are unremarkable. Visualized upper lung santos are clear. CT/CT cervical spine wo IV con IMPRESSION: No acute intracranial abnormality. No cervical fracture.
[2023-04-06 12:24] VITALS: BP 100/72; PULSE 110; O2SAT 96
[2023-04-06 12:39] VITALS: BP 100/64; PULSE 98; RESP 18; TEMP 36.7; O2SAT 96; BMI 27.7
--- NOTE | 2023-04-06 13:40 | ED_ITS ---
HPI - Fall General Chief Complaint: Fall Stated Complaint: fall,hit head,?loc,head/neck pain,+ccolla etoh use Time Seen by Provider: 04/06/23 13:28 Source: patient and EMS Mode of arrival: EMS Limitations: no limitations History of Present Illness HPI Narrative: 53-year-old male with history of alcohol abuse presents after a fall. Patient was drinking beer. Became unsteady of gait. He has chronic left-sided deficits from reported CVA in the past. He did fall. He hit the right occipital area of her this head. He does report a brief loss of consciousness. He denies any significant headache, nausea, vomiting or new focal deficits. He denies any chest pain, palpitations or lightheadedness. There is no prodrome. Denies any drug abuse. Patient denies suicidal homicidal ideation. Related Data Previous Rx's Medication Instructions Recorded amoxicillin 875 mg-potassium 1 tab PO BID #20 tabs 08/31/22 clavulanate 125 mg tablet folic acid 1 mg tablet 1 mg PO DAILY #30 tabs 08/31/22 prednisone 10 mg tablet See Rx Instructions .Route 08/31/22 .COMPLEX #45 tabs cephalexin 500 mg capsule 500 mg PO Q6H 7 days #28 caps 01/11/23 doxycycline hyclate 100 mg tablet 100 mg PO BID 7 days #14 tabs 01/11/23 Allergies Allergy/AdvReac Type Severity Reaction Status Date / Time clams Allergy Severe HIVES, Verified 04/06/23 12:42 DIFFICULTY BREATHING Review of Systems Review of Systems: CONSTITUTIONAL: Denies weight loss, fever and chills. HEENT: Denies changes in vision and hearing. RESPIRATORY: Denies SOB and cough. CV: Denies palpitations no CP. GI: Denies abdominal pain, nausea, vomiting and diarrhea. : Denies dysuria and urinary frequency. MSK: Denies myalgia and joint pain. SKIN: Denies rash and pruritus. NEUROLOGICAL: Denies headache and syncope. PSYCHIATRIC: Denies recent changes in mood. Denies anxiety and depression. All other ROS are negative unless in HPI PMFSH Past Medical History Medical History High cholesterol HTN (hypertension) ETOH abuse Social History Social History Household Members: None Housing: Homeless Do you presently have visiting nurse or other home services: No Alcohol intake: current Alcohol intake frequency: 3 or more drinks per day Alcohol type: beer and hard liquor Patient Tobacco Use Status: Never used Tobacco Advance Directives: No Advance Directives Information Provided: No service: No Current occupational status: unemployed Physical Exam Vital Signs: Vital Signs: Last Vital Signs Temp 98.0 F 04/06/23 12:39 Pulse 66 04/06/23 14:32 Resp 16 04/06/23 14:32 BP 116/71 04/06/23 14:32 Pulse Ox 96 04/06/23 14:32 O2 Del Method Room Air 04/06/23 14:32 BMI result Body Mass Index 27.7 GEN: Well developed, no acute distress, alert, oriented HEENT: Normocephalic, atraumatic, normal external ears, nose appears normal, no oropharyngeal edema or exudates Eyes: Normal to appearance Neck: Cervical collar in place, no midline tenderness or step-off., no lymphadenopathy Respiratory: Talks in complete sentences, no respiratory distress, clear to auscultation bilaterally Cardiovascular: Regular rate and rhythm, no murmurs rubs or gallops Abdomen: Soft, nontender, nondistended, no guarding, no rebound Back: No CVA tenderness Extremities: No clubbing cyanosis or edema Neurologic: No focal neurologic deficits, cranial nerves 2-12 intact, strength is 5/5 bilaterally Skin: No rash Course Course Course Narrative: Patient seen for trauma secondary to fall while intoxiated. My review of imaging shows no acute trauma. Patient is not requesting detox. No SI.HI. Does not warrant emergent psychiatric evaluation. He is clbnicially sober without signs of withdrawal. Awaiting official results of CT scan from radiology. Patient's care to be transferrred to Dr. Barajas. Medical Decision Making Medical Decision Making MDM Narrative: 53-year-old male with history of alcohol abuse presents with traumatic head injury. Patient is actively intoxicated. Will obtain CT scan of the head and cervical spine to rule out traumatic injury. Will re-evaluate patient follow-up images studies to assess for sobriety patient's falls likely due to acute alcohol intoxication, gait instability. Patient has no slurred speech or evidence of alcohol withdrawal. I do believe alcohol certainly played a role in his symptomatology. Patient is not actively asking for alcohol detox or add itional treatment. CT scan will be ordered in order to rule out subdural hematoma, epidural hematoma, subarachnoid hemorrhage or other traumatic injury. Differential Diagnosis Differential Diagnoses: The differential diagnosis associated with the presentation includes (See above) Independent Interpretation I performed an independent interpretation of an: CT Scan (head and cspine NAD) Radiology Impression Discussion of test interpretation with radiology: I have reviewed the radiologist's reading. Independent Historian Clinical information obtained from an independent historian. History obtained fr om or confirmed by: EMS External Record Review External record reviewed: Inpatient record, Office record, Outpatient record, Prior outpatient labs and Prior outpatient radiology Prescription Management I considered prescription management with: Pain Medication Chronic Conditions Patient?s care impacted by: Other (Alcohol abuse) Discharge Plan Discharge Clinical Impression: Unsteady gait, ETOH abuse, Acute head injury Patient Disposition: Home, Self-Care Instructions: Head Injury (ED), Abuse of Alcohol (ED), Dizziness (ED) Prescriptions: No Action folic acid 1 mg Tablet 1 mg PO DAILY Qty: 30 0RF amoxicillin-pot clavulanate 875-125 mg tablet 1 tab PO BID Qty: 20 0RF prednisone 10 mg tablet See Rx Instructions .Route .COMPLEX Qty: 45 0RF Rx Instructions: 10 mg orally; 5 tabs p.o. daily x3 days; 4 tabs p.o. daily x3 days; 3 tabs daily x3 days; 2 tabs daily x3 days; 1 tab daily x3 days cephalexin 500 mg capsule 500 mg PO Q6H 7 Days Qty: 28 0RF doxycycline hyclate 100 mg tablet 100 mg PO BID 7 Days Qty: 14 0RF Referrals: Physician,None [Primary Care Provider] - (Primary care provider in 1 week as needed.) Interventions: ED Discharge Assessment Last Done: 04/06/23 16:12 Discharge Date/Time: 04/06/23 16:13
[2023-04-06 14:32] VITALS: BP 116/71; PULSE 66; RESP 16; O2SAT 96
--- NOTE | 2023-04-06 14:35 | PC.NURSE ---
pt is resting in the stretcher, alert and oriented, skin slightly flushed color in the face, respirations even and unlabored, pt reports drinking alcohol today and falling outside while walking and hitting the back of the head, pt does report positive loc, pt is in a c-chip
--- NOTE | 2023-04-06 15:25 | HE.EDOBS ---
ED Observation ED Observation Admit Anticipated Goals: Discharge Diagnostic Studies: Radiology studies and Await sobriety HPI and ROS: Please review Dr. Celestin's note for HPI ROS and PE MDM: Patient signed out to me pending CT scan of the head and neck patient has normal CT head neck he did fall he is able to ambulate without any difficulty here I will discharge home. He requested detox and addiction medicine was consulted. ED Observation Clinical Results Repeat ETOH: Improved
--- NOTE | 2023-04-06 15:54 | MHC.RECOVRN ---
Met with pt in [id number], pt unsure of what he would like to do. Pt suggested [facility], however, pt does not have his walker and [facility] will not accept him without it. Pt agreeable to [facility]. ED provider aware.
== END 2023-04-06 16:13 | disposition home or self-care (01) ==
PROVIDERS: Emergency Provider Student in an Organized Health Care Education/Training Program
DX: S09.90XA Unspecified injury of head, initial encounter (principal); W19.XXXA Unspecified fall, initial encounter; F10.10 Alcohol abuse, uncomplicated; Y90.9 Presence of alcohol in blood, level not specified; R26.81 Unsteadiness on feet; I10 Essential (primary) hypertension; E78.5 Hyperlipidemia, unspecified; Y93.9 Activity, unspecified; Y92.480 Sidewalk as the place of occurrence of the external cause; Y99.9 Unspecified external cause status
CPT/HCPCS: 70450; 72125; 99284

== ENCOUNTER 2023-04-07 14:33 | Emergency (ER) | payer MEDICAID, SELFPAY ==
--- NOTE | ~2023-04-07 | CT_ITS ---
EXAMINATION: CT HEAD WITHOUT CONTRAST CLINICAL INFORMATION: Fall. Head strike. COMPARISON: 04/06/2023. 03/28/2023. TECHNIQUE: Contiguous axial imaging was performed from the skull base to vertex without intravenous administration of contrast. This CT examination was performed using dose optimization techniques as appropriate, variously including the following: *Automated exposure control *Adjustment of mA and/or kV according to patient size (this includes techniques or standardized protocols for targeted exams where dose is matched to indication/reason for exam; i.e. extremities or head) *Use of iterative reconstruction technique DLP: 755 mGy-cm FINDINGS: The lateral, third and fourth ventricles are normally outlined. The cortical sulci and basal cisterns are normally outlined as well. There is no acute territorial defect, hemorrhage or midline shift. The extra-axial spaces are unremarkable. Calvarium: Intact. Maxillofacial sinuses and mastoids: There is mucosal thickening of the left maxillary sinus. The remaining maxillofacial sinuses and mastoids are clear. Cervical spine: The alignment is normal. The disc spaces are maintained. There is no fracture. There is mild diffuse facet osteoarthritic hypertrophy change without significant neuroforaminal narrowing. The soft tissues are unremarkable. Visualized upper lung santos are clear. CT/CT head/brain wo IV con IMPRESSION: No acute intracranial abnormality. No cervical spine fracture or malalignment.
--- NOTE | ~2023-04-07 | CT_ITS ---
EXAMINATION: CT HEAD WITHOUT CONTRAST CLINICAL INFORMATION: Fall. Head strike. COMPARISON: 04/06/2023. 03/28/2023. TECHNIQUE: Contiguous axial imaging was performed from the skull base to vertex without intravenous administration of contrast. This CT examination was performed using dose optimization techniques as appropriate, variously including the following: *Automated exposure control *Adjustment of mA and/or kV according to patient size (this includes techniques or standardized protocols for targeted exams where dose is matched to indication/reason for exam; i.e. extremities or head) *Use of iterative reconstruction technique DLP: 755 mGy-cm FINDINGS: The lateral, third and fourth ventricles are normally outlined. The cortical sulci and basal cisterns are normally outlined as well. There is no acute territorial defect, hemorrhage or midline shift. The extra-axial spaces are unremarkable. Calvarium: Intact. Maxillofacial sinuses and mastoids: There is mucosal thickening of the left maxillary sinus. The remaining maxillofacial sinuses and mastoids are clear. Cervical spine: The alignment is normal. The disc spaces are maintained. There is no fracture. There is mild diffuse facet osteoarthritic hypertrophy change without significant neuroforaminal narrowing. The soft tissues are unremarkable. Visualized upper lung santos are clear. CT/CT cervical spine wo IV con IMPRESSION: No acute intracranial abnormality. No cervical spine fracture or malalignment.
[2023-04-07 14:40] VITALS: PULSE 108; O2SAT 95
[2023-04-07 15:07] VITALS: BP 104/72; PULSE 90; RESP 19; TEMP 36.6; O2SAT 98; BMI 26.6
--- NOTE | 2023-04-07 15:30 | PC.NURSE ---
pt changed into green xuan clothing w security and belongings secured by tech with security. aox4. calm, coop. no distress. CIWA 0, COWS 0. last drink 1200 today 1/2 pt vodka.
--- NOTE | 2023-04-07 16:03 | ED.ALCOHOL ---
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 Reports drinking two beers at his friends house. He admits to tripping and hitting the back of his head on the sidewalk. Denies LOC. Not on AC. His only complaint at present is AGUIRRE. He states that he's hungry and would like a sandwich. States he is not seeking detox. Denies fever, chills, vision changes, chest pain, SOB, N/V, abd pain, neck or back pain, tingling/weakness/numbness of extremities. Denies SI/HI. Patient poor historian d/t acute etoh intoxication. Related Data Previous Rx's Medication Instructions Recorded amoxicillin 875 mg-potassium 1 tab PO BID #20 tabs 08/31/22 clavulanate 125 mg tablet folic acid 1 mg tablet 1 mg PO DAILY #30 tabs 08/31/22 prednisone 10 mg tablet See Rx Instructions .Route 08/31/22 .COMPLEX #45 tabs cephalexin 500 mg capsule 500 mg PO Q6H 7 days #28 caps 01/11/23 doxycycline hyclate 100 mg tablet 100 mg PO BID 7 days #14 tabs 01/11/23 Allergies Allergy/AdvReac Type Severity Reaction Status Date / Time clams Allergy Severe HIVES, Verified 04/06/23 12:42 DIFFICULTY BREATHING Review of Systems Review of Systems: Constitutional: No fever, chills, fatigue, night sweats, weight changes ENT/Mouth: No ear pain, hearing loss, nasal congestion, sinus pain, rhinorrhea, sore throat Eyes: No eye pain, swelling, redness, vision changes, discharge Cardio: No chest pain, palpitations, ROSARIO, orthopnea, peripheral edema Pulm: No SOB, cough, sputum, wheezing, dyspnea, hemoptysis GI: No nausea, vomiting, hematemesis, abdominal pain, diarrhea, constipation, hematochezia, melena : No irregular bleeding, dysuria, frequency, urgency, hesitancy, hematuria, flank pain, urinary flow changes, urinary incontinence or retention MSK: No back pain, neck pain, joint pain, myalgias Skin: No lesions, rashes Neuro: No weakness, numbness, paresthesias, LOC, dizziness, +headache All other systems reviewed and are negative. [facility] Past Medical History Attestation statement: The following information was validated with the patient. Source: old records reviewed and nursing notes reviewed Medical History High cholesterol HTN (hypertension) ETOH abuse Social History Social History Household Members: None Housing: Homeless Do you presently have visiting nurse or other home services: No Alcohol intake: current Alcohol intake frequency: 3 or more drinks per day Alcohol type: beer and hard liquor Patient Tobacco Use Status: Never used Tobacco Use of substances other than those prescribed or required for medical reasons: No Advance Directives: No service: No Current occupational status: unemployed Physical Exam ED Vital Signs: Vital Signs - 24 hr 04/07/23 15:07 04/07/23 18:00 04/08/23 04:34 Temperature 98 F 98.1 F Pulse Rate 90 94 Respiratory Rate 19 16 17 Blood Pressure 104/72 114/80 Pulse Oximetry 98 95 Oxygen Delivery Method Room Air Room Air BMI result Body Mass Index 26.6 Vital signs stable Const Other: + Somnolent, arousable to verbal stimuli General: cooperative, no acute distress, alert, awake and intoxicated appearing Orientation/consciousness: patient oriented x3 Limitations: no limitations HENMT Other: + Dry mucous membranes Head: Yes normal to inspection, Yes No palpable skull fracture present, Yes normocephalic, Yes atraumatic, No Willams's sign, No raccoon eyes and No periorbital ecchymosis Ears: hearing grossly normal bilaterally, external ears normal and TM's normal bilaterally General nose exam: Normal external nose present and Normal septum present Eyes General: appearance normal, both eyes and all related structures Neck Other: + Does not have cervical collar in place Neck: Yes normal visual inspection, Yes full ROM, Yes no lymphadenopathy and Yes no meningeal signs Chest Chest palpation & inspection: normal inspection of the chest, normal palpation of entire chest wall, no crepitus and no tenderness Resp Effort & Inspection: normal respiratory effort, able to speak in complete sentences and symmetric chest movement Auscultation: clear to auscultation bilaterally, no rales, no rhonchi and no wheezes Cardio Rate: regular rate Rhythm: regular rhythm Peripheral pulses: Peripheral pulses 2+ throughout GI Inspection: Yes normal to inspection Palpation (GI): Soft to palpation and nontender Back/Spine/Pelvis Other: + No midline spinous tenderness. No paraspinal muscle tenderness to palpation. No step off deformity. Back: No Lemus-Contreras sign present Skin General skin exam: no rashes or lesions noted Neuro Other: + Unable to assess gait due to acute intoxication General: patient oriented x3, moves all extremities and no meningeal signs Motor exam (neuro): 5/5 motor strength present throughout Extrem General: Yes normal to inspection Psych Appearance: disheveled Speech and movement: Slurred speech present Course Course Course Narrative: 1729-- CT head/brain without acute bleed. CT cervical spine without fracture. 1753-- CBC without leukocytosis or anemia. BUN elevated > will order IVF. Chemistry without acute electrolyte abnormalities requiring intervention. Lipase is mildly elevated to 82 appearing to be patient's baseline secondary to chronic alcohol use. No epigastric TTP or palpable mass on examination. Ethanol 185. > workup unremarkable >> metabolize to freedom. 1803-- Physician observation initiated at 6:03 PM, pending IVF and MTF. 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 VSS. Patient is somnolent in bed, arousable to verbal stimuli. Head is normocephalic, atraumatic. EOMs intact without intrapment. PERRLA. RRR. Lungs are CT b/l. There is no midline spinous tenderness or paraspinal mm tenderness. No step off deformity. Exam non focal. Clinical concern for headache vs migraine headache vs concussion. Unlikely ICH vs CVA/TIA vs cerebellar stroke. Concern for acute etoh intoxication vs withdrawal vs dehydration. Plan at this time is to obtain basic labs along with CT head/brain/cervical spine. If workup is normal, will MTF as he is declining detox at this time. Differential Diagnosis Differential Diagnoses: The differential diagnosis associated with the presentation includes As above. Admission/Observation Not indicated. Lab Data MDM Lab Attestation statement: I reviewed the patient's lab results. As above. 04/07/23 17:17 04/07/23 17:17 Labs: Lab Results 04/07/23 Range/Units 17:17 WBC 4.9 (4.8-10.8) X10*3/uL RBC 4.75 (4.60-5.80) X10*6/uL Hgb 14.5 (14.0-18.0) g/dl Hct 44.0 (42.0-52.0) % MCV 92.6 (80.0-98.0) fL MCH 30.5 (27.0-33.0) pg MCHC 33.0 (31.0-36.0) g/dl RDW 13.6 (11.0-16.0) % Plt Count 115 L D (160-400) X10*3/uL MPV 11.2 (9.4-12.4) fL Immature Gran % (Auto) 0.4 (0.0-0.4) % Neut % (Auto) 63.8 (45-73) % Lymph % (Auto) 18.1 L (20-40) % [place] % (Auto) 14.2 H (2-11) % Eos % (Auto) 3.3 (0-4) % Baso % (Auto) 0.2 (0-2) % Lymph # (Auto) 0.9 L (1.2-4.9) X10*3/uL [place] # (Auto) 0.7 (0.1-1.2) X10*3/uL Eos # (Auto) 0.2 (0.0-0.4) X10*3/uL Baso # (Auto) 0.0 (0.0-0.2) X10*3/uL Abs Immat Gran (auto) 0.02 (0.00-0.03) X10*3/uL Absolute Neuts (auto) 3.1 (2.0-8.3) x10*3/uL Absolute Nucleated RBC 0.000 (0.0-0.012) X10*3/uL Nucleated RBC % (auto) 0.0 (0.0-0.2) /100WBC Sodium 147 H (135-145) mmol/L Potassium 3.5 (3.3-5.1) mmol/L Chloride 111 H (96-108) mmol/L Carbon Dioxide 25 (22-29) mmol/L Anion Gap 15 (12-20) BUN 20 H (9-16) mg/dL Creatinine 0.81 (0.5-1.4) mg/dL Estim Creat Clear Calc 98.6 Estimated GFR > 60 Random Glucose 81 (60-115) mg/dL Calcium 8.1 L (8.4-10.2) mg/dL Magnesium 2.3 (1.6-2.6) mg/dL Lipase 82 H (8-78) U/L Ethyl Alcohol 185 mg/dL Independent Interpretation I performed an independent interpretation of an: CT Scan Interpretation: CT head/brain without bleed, agree with radiologist's interpretation. CT cervical spine without acute fracture, agree with radiologist's interpretation. Radiology Impression Discussion of test interpretation with radiology: I have reviewed the radiologist's reading. Radiologist Impression: CT cervical spine wo IV con IMPRESSION: No acute intracranial abnormality. No cervical spine fracture or malalignment. Independent Historian Clinical information obtained from an independent historian. History obtained from or confirmed by: EMS External Record Review External record reviewed: Inpatient record, Office record, Outpatient record, Prior outpatient labs, Prior outpatient radiology, Primary care record and Outside ED record Prescription Management I considered prescription management with: Pain Medication Chronic Conditions Patient?s care impacted by: Other (CVA) Social Determinants Patient?s care significantly limited by Social Determinants of Health including: Other Social Determinant of Health Medications Administered Discontinued Medications Generic Name Dose Route Start Last Admin Trade Name Freq PRN Reason Stop Dose Admin Sodium Chloride 1,000 mls @ 999 mls/hr 04/07/23 18:00 04/07/23 19:52 Ns IV 04/07/23 19:00 Not Given .Q1H1M [facility] Critical Care Time Critical Care Time Critical Care Time: No Discharge Plan Discharge Clinical Impression: Acute alcohol intoxication Patient Disposition: Still a Patient Instructions: Abuse of Alcohol (ED), Alcohol Withdrawal (ED), Alcohol Use Disorder (ED) Additional Instructions: The CT of your head/ brain did not show acute bleed. The CT of your neck did not show acute fracture. Your lab work showed dehydration. You were provided with IV fluids in ED. Make sure to stay hydrated with water. Return to the ED with new or worsening symptoms. In the case of emergency call 911. Prescriptions: No Action folic acid 1 mg Tablet 1 mg PO DAILY Qty: 30 0RF amoxicillin-pot clavulanate 875-125 mg tablet 1 tab PO BID Qty: 20 0RF prednisone 10 mg tablet See Rx Instructions .Route .COMPLEX Qty: 45 0RF Rx Instructions: 10 mg orally; 5 tabs p.o. daily x3 days; 4 tabs p.o. daily x3 days; 3 tabs daily x3 days; 2 tabs daily x3 days; 1 tab daily x3 days cephalexin 500 mg capsule 500 mg PO Q6H 7 Days Qty: 28 0RF doxycycline hyclate 100 mg tablet 100 mg PO BID 7 Days Qty: 14 0RF Referrals: Physician,None [Primary Care Provider] -
[2023-04-07 17:22] LABS: MANUAL DIFF FLAG NO
[2023-04-07 17:34] LABS: Basophils Percent Auto 0.2 % (0-2); Eosinophils Absolute Auto 0.2 X10*3/uL (0.0-0.4); Eosinophils Percent Auto 3.3 % (0-4); Hemoglobin 14.5 g/dl (14.0-18.0); Imm Gran Abs Auto 0.02 X10*3/uL (0.00-0.03); Imm Gran Pct Auto 0.4 % (0.0-0.4); Lymphocytes Absolute Auto 0.9 X10*3/uL (1.2-4.9); Lymphocytes Percent Auto 18.1 % (20-40); Mean Corpuscular Hemoglobin 30.5 pg (27.0-33.0); Mean Corpuscular Volume 92.6 fL (80.0-98.0); Mean Platelet Volume 11.2 fL (9.4-12.4); Monocytes Absolute Auto 0.7 X10*3/uL (0.1-1.2); Monocytes Percent Auto 14.2 % (2-11); Neutrophils Absolute Auto 3.1 x10*3/uL (2.0-8.3); Neutrophils Percent Auto 63.8 % (45-73); Platelet Count 115 X10*3/uL (160-400); Red Blood Count 4.75 X10*6/uL (4.60-5.80); Red Cell Distribution Width 13.6 % (11.0-16.0); White Blood Count 4.9 X10*3/uL (4.8-10.8)
[2023-04-07 17:47] LABS: Anion Gap 15 (12-20); Blood Urea Nitrogen 20 mg/dL (9-16); Calcium 8.1 mg/dL (8.4-10.2); Carbon Dioxide 25 mmol/L (22-29); Chloride 111 mmol/L (96-108); Creatinine Clr Calc Pharmacy 98.6; Estimated Glomerular Filt Rate > 60; Ethanol 185 mg/dL; Glucose Random 81 mg/dL (60-115); Lipase 82 U/L (8-78); Magnesium 2.3 mg/dL (1.6-2.6); Potassium 3.5 mmol/L (3.3-5.1); Sodium 147 mmol/L (135-145)
--- NOTE | 2023-04-07 17:50 | PC.NURSE ---
aox4. calm, coop. no distress. eating sandwiches and po fluids well. CIWA 0 COWS 0
[2023-04-07 18:00] VITALS: RESP 16
[2023-04-08 04:34] VITALS: BP 114/80; PULSE 94; RESP 17; TEMP 36.7; O2SAT 95
--- NOTE | 2023-04-08 05:13 | PC.NURSE ---
Pt appears to be sleeping, equal, non labored chest rise. Pt awakens to verbal stimuli. Pt using urinal at bedside.
--- NOTE | 2023-04-08 06:21 | PC.NURSE ---
Pt sitting at edge of bed states I am ready to go . Provider aware.
--- NOTE | 2023-04-08 06:49 | PC.NURSE ---
Belongings returned and Pt brought out to W/R with assistance.
== END 2023-04-08 06:50 | disposition home or self-care (01) ==
PROVIDERS: Physician Assistant Medical; Emergency Provider Emergency Medicine
DX: F10.120 Alcohol abuse with intoxication, uncomplicated (principal); Y90.6 Blood alcohol level of 120-199 mg/100 ml; R51.9 Headache, unspecified; Z91.81 History of falling; I10 Essential (primary) hypertension; E78.5 Hyperlipidemia, unspecified; Z79.899 Other long term (current) drug therapy
CPT/HCPCS: 36415; 70450; 72125; 80048; 80307; 83690; 83735; 85025; 99284

== ENCOUNTER 2023-04-08 15:24 | Emergency (ER) | payer MEDICAID, SELFPAY ==
[2023-04-08 15:33] VITALS: BP 124/82; PULSE 122; O2SAT 93
--- NOTE | 2023-04-08 15:52 | ED_ITS ---
HPI - General Adult General Chief complaint: ETOH/Substance Use Stated complaint: etoh Time Seen by Provider: 04/08/23 15:47 Source: patient and EMS Mode of arrival: EMS Limitations: no limitations History of Present Illness HPI narrative: Patient is a 53 year old assigned male at with a history of alcohol abuse presenting to the emergency department today requesting detox. Patient states that he has been drinking today but he would like to be evaluated to go to a detox bed. Patient denies any dizziness, lightheadedness, abdominal pain, nausea, vomiting, fever, chills, blurry vision, double vision, loss of vision, chest pain, difficulty breathing, shortness of breath, back pain, night sweats, pain with urination, increased urinary frequency, increased urinary urgency, blood in his urine or stool, syncope or a near syncopal episode, recent trauma or falls, bowel incontinence, bladder incontinence, bowel retention, bladder retention, or any other complaints at this time. Relieving factors: none Exacerbating factors: none Associated symptoms: denies other symptoms Treatments prior to arrival: none Related Data Previous Rx's Medication Instructions Recorded amoxicillin 875 mg-potassium 1 tab PO BID #20 tabs 08/31/22 clavulanate 125 mg tablet folic acid 1 mg tablet 1 mg PO DAILY #30 tabs 08/31/22 prednisone 10 mg tablet See Rx Instructions .Route 08/31/22 .COMPLEX #45 tabs cephalexin 500 mg capsule 500 mg PO Q6H 7 days #28 caps 01/11/23 doxycycline hyclate 100 mg tablet 100 mg PO BID 7 days #14 tabs 01/11/23 Allergies Allergy/AdvReac Type Severity Reaction Status Date / Time clams Allergy Severe HIVES, Verified 04/06/23 12:42 DIFFICULTY BREATHING Review of Systems Constitutional: Constitutional: Reports no additional constitutional complaints, Denies chills, Denies fever(s) and Denies night sweats Eyes: Eyes: Reports no additional eye complaints, Denies blurry vision, Denies change in vision, Denies diplopia, Denies eye discharge, Denies loss of vision and Denies eye pain ENT: Denies dizziness Cardiovascular: Cardiovascular: Reports no additional cardiovascular complaints, Denies chest pain, Denies lightheadedness, Denies Loss of Consciousness and Denies dyspnea Respiratory: Respiratory: Reports no additional respiratory complaints and Denies dyspnea Gastrointestinal: Gastrointestinal: Reports no additional gastrointestinal complaints, Denies abdominal pain, Denies melena, Denies hematochezia, Denies change in bowel habits and Denies change in stool character Genitourinary: Genitourinary: Reports no additional male genitourinary complaints, Denies hematuria, Denies oliguria, Denies difficulty urinating, Denies dysuria, Denies urinary frequency, Denies urinary hesitancy, Denies urinary incontinence and Denies urinary urgency Musculoskeletal: Musculoskeletal: Reports no additional musculoskeletal complaints, Denies numbness and Denies tingling Neurologic: Denies dizziness, Denies loss of vision, Denies numbness and Denies tingling Psychiatric: Psychiatric: Reports no additional psychiatric complaints Endocrine: Endocrine: Reports no additional endocrine complaints Hematologic/Lymphatic: Hematologic/Lymphatic: Reports no additional hematologic/lymphatic complaints Allergic/Immunologic: Allergic/Immunologic: Reports no additional allergic/ immunologic complaints PMFSH Past Medical History Attestation statement: The following information was validated with the patient. Source: old records reviewed and nursing notes reviewed Medical History High cholesterol HTN (hypertension) ETOH abuse Social History Social History Household Members: None Housing: Homeless Do you presently have visiting nurse or other home services: No Alcohol intake: current Alcohol intake frequency: 3 or more drinks per day Alcohol type: beer and hard liquor Patient Tobacco Use Status: Never used Tobacco Advance Directives: No Advance Directives Information Provided: Yes service: No Current occupational status: unemployed Physical Exam ED Vital Signs: Vital Signs - 24 hr 04/08/23 15:53 04/08/23 18:30 04/08/23 20:00 Temperature 96.9 F 98.2 F 97.8 F Pulse Rate 75 73 72 Respiratory Rate 16 16 16 Blood Pressure 127/77 124/70 124/68 Pulse Oximetry 96 98 97 Oxygen Delivery Method Room Air Room Air Room Air 04/08/23 21:58 Temperature 97.8 F Pulse Rate 72 Respiratory Rate 16 Blood Pressure 130/64 Pulse Oximetry 97 Oxygen Delivery Method Room Air BMI result Body Mass Index 27.6 Const General: cooperative, no acute distress, alert and awake Nutritional Appearance: well nourished Orientation/consciousness: patient oriented x3 Limitations: no limitations HENMT Head: Yes normal to inspection and Yes atraumatic Ears: hearing grossly normal bilaterally and external ears normal General nose exam: Normal external nose present, no nasal discharge noted and no epistaxis Face and sinus: Yes normal facial exam, No abrasion and No laceration Mouth: Normal oral and palatal mucosa present, no drooling and no muffled voice Eyes General: appearance normal, both eyes and all related structures Periorbital: periorbital findings normal Eyelids: Yes eyelids normal Conjunctivae: conjunctivae normal Pupils: Equal, round and reactive pupils present EOM: EOMs intact bilaterally Neck Neck: Yes normal visual inspection, Yes full ROM and Yes no lymphadenopathy Chest Chest palpation & inspection: normal inspection of the chest Resp Effort & Inspection: normal respiratory effort and able to speak in complete sentences GI Inspection: Yes normal to inspection Neuro General: patient oriented x3 and moves all extremities Cranial nerves: Yes Equal, round and reactive pupils present Cognition (Neuro): normal cognition Motor exam (neuro): 5/5 motor strength present throughout Sensory Exam: Normal double simultaneous stimulation for sensation Coordination: [id number] test normal Extrem General: Yes normal to inspection, Yes full ROM and Yes capillary refill normal Psych Appearance: grossly normal Mental Status: mental status grossly normal Affect: normal affect Attitude: cooperative Thought process: Normal thought process present Thought content: Normal thought content present Insight: Good insight present (Psych) Medical Decision Making Medical Decision Making MDM Narrative: Patient is a 53 year old assigned male at with a history of alcohol abuse presenting to the emergency department today requesting to detox from alcohol. Patient's physical exam was unremarkable. Patient's blood work from 04/07/2023 was unremarkable. Patient is refusing lab work today. Patient's head and c-spine CTs from 04/07/2023 showed no acute process. I explained my physical exam findings as well as all test results to the patient. I answered all questions a sked by the patient. Patient will remain in the department pending addiction team consultation. Patient is free to leave if clinically sober. Differential Diagnosis Differential Diagnoses: The differential diagnosis associated with the presentation includes Alcohol intoxication Lab Data [facility] Lab Attestation statement: I reviewed the patient's lab results. My interpretation of these studies and their corresponding values is that they are grossly normal. Labs: Lab Results 04/08/23 Range/Units 18:35 Urine Opiates Screen Not Detected (Not Detect) Urine Fentanyl Screen Not Detected (Not Detect) Ur Barbiturates Screen Not Detected (Not Detect) Ur Phencyclidine Scrn Not Detected (Not Detect) Ur Amphetamines Screen Not Detected (Not Detect) U Benzodiazepines Scrn Not Detected (Not Detect) Urine Cocaine Screen Not Detected (Not Detect) U Marijuana (THC) Screen Not Detected (Not Detect) Independent Interpretation I performed an independent interpretation of an: CT Scan Interpretation: My interpretation is in agreement with the radiologist's impression of these imaging studies. EXAMINATION: CT HEAD WITHOUT CONTRAST CLINICAL INFORMATION: Fall. Head strike. COMPARISON: 04/06/2023. 03/28/2023. TECHNIQUE: Contiguous axial imaging was performed from the skull base to vertex without intravenous administration of contrast. This CT examination was performed using dose optimization techniques as appropriate, variously including the following: *Automated exposure control *Adjustment of mA and/or kV according to patient size (this includes techniques or standardized protocols for targeted exams where dose is matched to indication/reason for exam; i.e. extremities or head) *Use of iterative reconstruction technique DLP: 755 mGy-cm FINDINGS: The lateral, third and fourth ventricles are normally outlined. The cortical sulci and basal cisterns are normally outlined as well. There is no acute territorial defect, hemorrhage or midline shift. The extra-axial spaces are unremarkable. Calvarium: Intact. Maxillofacial sinuses and mastoids: There is mucosal thickening of the left maxillary sinus. The remaining maxillofacial sinuses and mastoids are clear. Cervical spine: The alignment is normal. The disc spaces are maintained. There is no fracture. There is mild diffuse facet osteoarthritic hypertrophy change without significant neuroforaminal narrowing. The soft tissues are unremarkable. Visualized upper lung santos are clear. CT/CT head/brain wo IV con IMPRESSION: No acute intracranial abnormality. No cervical spine fracture or malalignment. Dictated By: Fernando Lua Signed By: Electronically signed by Fernando Lua 04/07/23 1716 EXAMINATION: CT HEAD WITHOUT CONTRAST CLINICAL INFORMATION: Fall. Head strike. COMPARISON: 04/06/2023. 03/28/2023. TECHNIQUE: Contiguous axial imaging was performed from the skull base to vertex without intravenous administration of contrast. This CT examination was performed using dose optimization techniques as appropriate, variously including the following: *Automated exposure control *Adjustment of mA and/or kV according to patient size (this includes techniques or standardized protocols for targeted exams where dose is matched to indication/reason for exam; i.e. extremities or head) *Use of iterative reconstruction technique DLP: 755 mGy-cm FINDINGS: The lateral, third and fourth ventricles are normally outlined. The cortical sulci and basal cisterns are normally outlined as well. There is no acute territorial defect, hemorrhage or midline shift. The extra-axial spaces are unremarkable. Calvarium: Intact. Maxillofacial sinuses and mastoids: There is mucosal thickening of the left maxillary sinus. The remaining maxillofacial sinuses and mastoids are clear. Cervical spine: The alignment is normal. The disc spaces are maintained. There is no fracture. There is mild diffuse facet osteoarthritic hypertrophy change without significant neuroforaminal narrowing. The soft tissues are unremarkable. Visualized upper lung santos are clear. CT/CT cervical spine wo IV con IMPRESSION: No acute intracranial abnormality. No cervical spine fracture or malalignment. Dictated By: Fernando Lua Signed By: Electronically signed by Fernando Lua 04/07/23 1716 Radiology Impression Discussion of test interpretation with radiology: I have reviewed the radiologist's reading. Independent Historian Clinical information obtained from an independent historian. History obtained from or confirmed by: EMS (EMS provided additional history and confirmed the history provided by the patient.) Social Determinants Patient?s care significantly limited by Social Determinants of Health including: Other Social Determinant of Health (patient abuses alcohol.) Critical Care Time Critical Care Time Critical Care Time: Yes Total Critical Care Time: 45 Attestation: I spent 45 minutes of Critical Care Time with this patient. This does not include time spent on separately reported billable procedures. Discharge Plan Discharge Clinical Impression: ETOH abuse Patient Disposition: Still a Patient Prescriptions: No Action folic acid 1 mg Tablet 1 mg PO DAILY Qty: 30 0RF amoxicillin-pot clavulanate 875-125 mg tablet 1 tab PO BID Qty: 20 0RF prednisone 10 mg tablet See Rx Instructions .Route .COMPLEX Qty: 45 0RF Rx Instructions: 10 mg orally; 5 tabs p.o. daily x3 days; 4 tabs p.o. daily x3 days; 3 tabs daily x3 days; 2 tabs daily x3 days; 1 tab daily x3 days cephalexin 500 mg capsule 500 mg PO Q6H 7 Days Qty: 28 0RF doxycycline hyclate 100 mg tablet 100 mg PO BID 7 Days Qty: 14 0RF
[2023-04-08 15:53] VITALS: BP 127/77; PULSE 75; RESP 16; TEMP 36.1; O2SAT 96; BMI 27.6
[2023-04-08 18:30] VITALS: BP 124/70; PULSE 73; RESP 16; TEMP 36.8; O2SAT 98
[2023-04-08 18:51] LABS: Amphetamine Screen Urine Not Detected (Not Detect); Barbiturates, Urine Not Detected (Not Detect); Benzodiazepines Screen Urine Not Detected (Not Detect); Cannabinoid Screen Urine Not Detected (Not Detect); Cocaine Screen Urine Not Detected (Not Detect); Fentanyl, urine Not Detected (Not Detect); Opiate Screen Urine Not Detected (Not Detect); Phencyclidine Screen Urine Not Detected (Not Detect)
[2023-04-08 20:00] VITALS: BP 124/68; PULSE 72; RESP 16; TEMP 36.6; O2SAT 97
--- NOTE | 2023-04-08 20:12 | MHC.EDTECH ---
PATIENT ATE 100 5 OF DINNER ,DRANK 360 ML FLUIDS ,PT CURRENTLY AWAKE TALKING ON HIS PHONE .
--- NOTE | 2023-04-08 20:55 | MHC.EDTECH ---
PATIENT REFUSING BLOOD DRAW ,RN AWARE .
[2023-04-08 21:58] VITALS: BP 130/64; PULSE 72; RESP 16; TEMP 36.6; O2SAT 97
--- NOTE | 2023-04-08 22:00 | MHC.EDTECH ---
patient was inconient of urine ,care given ,pt had a chicken salad sandwich and mateo jaja for snack .
[2023-04-09] VITALS: RESP 16
--- NOTE | 2023-04-09 | MHC.EDTECH ---
0000 rounding done ,pt sleeping ,no apparent distress at this time ,will continue to monitor .
--- NOTE | 2023-04-09 03:22 | MHC.EDTECH ---
PT refusing bloodwork
== END 2023-04-09 07:19 | disposition home or self-care (01) ==
PROVIDERS: Physician Assistant Medical; Emergency Provider Emergency Medicine Emergency Medical Services
DX: F10.10 Alcohol abuse, uncomplicated (principal); I10 Essential (primary) hypertension; E78.00 Pure hypercholesterolemia, unspecified
CPT/HCPCS: 80307; 99283; 99284

== ENCOUNTER 2023-04-09 11:42 | Emergency (ER) | payer MEDICAID, SELFPAY ==
--- NOTE | ~2023-04-09 | CT_ITS ---
Examination: CT brain and CT cervical spine without contrast. CLINICAL INDICATION: Fall, head strike. Neck pain. COMPARISON: CT brain and CT cervical spine 04/06/2013. TECHNIQUE: 5 mm thin axial and reformatted 2 mm thin sagittal coronal images of brain were obtained. Subsequently axial 3 mm thin and reformatted 2 mm thin sagittal and coronal images of cervical spine were obtained. DLP 1221. This CT examination was performed using dose optimization technique as appropriate, variously including the following: Automated exposure control Adjustment of MA and/or KV according to patient size(this includes techniques or standardized protocols for targeted exams where dose is matched to indication/reason for exam; extremities or head. Use of iterative reconstruction techniques. FINDINGS: Brain: There is no acute intra-axial, extra-axial bleed, masses or midline shift. There is no acute infarction evolution. The yao to white matter differentiation is maintained. The lateral ventricles are symmetrical in size and configuration with mild enlargement. A prominent cisterna magna is noted in the posterior fossa. The lateral ventricles are symmetrical in size and mildly enlarged. Bone windows reveal no calvarial abnormality. There is no scalp soft tissue abnormality. There is mild mucoperiosteal thickening and/or retention cyst bilateral maxillary sinus. Rest of the paranasal sinuses and patent. There is bilateral middle meatus molly bullosa. Moderate deviation of nasal septum to the right is seen. There is mild left frontal scalp soft tissue swelling Cervical spine: There is normal cervical lordosis. The vertebral heights, alignment and disc heights are normal. The craniovertebral junction and C1-C2 alignment is normal. No visible acute fracture, dislocation or subluxation seen. There is moderate right C5-C6 and C6-C7 facet joint arthropathy and hypertrophy. The prevertebral and paravertebral soft tissues are normal. CT/CT cervical spine wo IV con IMPRESSION: Left frontal scalp soft tissue swelling/hematoma. No calvarial fracture. No acute intracranial process seen. No visible acute fracture, dislocation or subluxation seen in cervical spine.
--- NOTE | 2023-04-09 11:49 | ED.GENADULT ---
HPI - General Adult General Chief complaint: ETOH/Substance Use Stated complaint: HEAD PAIN WITH HEMATOMA Time Seen by Provider: 04/09/23 11:47 Source: patient and EMS Mode of arrival: EMS Limitations: other (poor historian ) History of Present Illness HPI narrative: 52-year-old male history of alcohol abuse, hypertension, hyperlipidemia brought in by ambulance for alcohol intoxication, unwhitnessed fall with hematoma to left temporal region. According to EMS he was found on the sidewalk with a bump on his head. Nobody witnessed this. Patient seems intoxicated and unable to answer all my questions appropriately. Patient reports that he thinks he lost consciousness however he is unsure. Then he tells me he did loose consciousness. His last drink was just prior to his arrival, unable to quantify how much he drank. He reports he drank a few beers . Denies drug use. Denies SI and HI. Patient arrived in a cervical collar out of precaution. Not on blood thinners. Left sided facial droop noted, patient slurring his words. Related Data Previous Rx's Medication Instructions Recorded amoxicillin 875 mg-potassium 1 tab PO BID #20 tabs 08/31/22 clavulanate 125 mg tablet folic acid 1 mg tablet 1 mg PO DAILY #30 tabs 08/31/22 prednisone 10 mg tablet See Rx Instructions .Route 08/31/22 .COMPLEX #45 tabs cephalexin 500 mg capsule 500 mg PO Q6H 7 days #28 caps 01/11/23 doxycycline hyclate 100 mg tablet 100 mg PO BID 7 days #14 tabs 01/11/23 Allergies Allergy/AdvReac Type Severity Reaction Status Date / Time clams Allergy Severe HIVES, Verified 04/06/23 12:42 DIFFICULTY BREATHING Review of Systems Review of Systems: Constitutional : No Weight loss, No Fever, No Chills, No Fatigue, No Malaise ENT/Mouth : No sore throat, No Rhinorrhea Eyes: No Eye Pain, No Swelling, No Redness Cardiovascular : No Chest Pain, No SOB, No Dyspnea on Exertion, No Orthopnea, No Edema, No Palpitations Respiratory : No Cough, No Sputum, No Wheezing Gastrointestinal : No Nausea, No Vomiting, No Diarrhea, No Constipation, No abdominal Pain, No Hematochezia, No Melena Genitourinary : No Dysuria, No Urinary Frequency, No Hematuria, Musculoskeletal : No joint pain, No Myalgias, No Joint Swelling Skin : No Skin Lesions, No rash Neuro : No Weakness, No Numbness, No Dizziness, + Headache Psych : No Anxiety/Panic, No Depression All other systems reviewed and are negative Yes all other systems are reviewed and are negative [facility] Past Medical History Attestation statement: The following information was validated with the patient. Source: old records reviewed and nursing notes reviewed Medical History High cholesterol HTN (hypertension) ETOH abuse Social History Social History Household Members: None Housing: Homeless Do you presently have visiting nurse or other home services: No Alcohol intake: current Alcohol intake frequency: 3 or more drinks per day Alcohol type: beer and hard liquor Patient Tobacco Use Status: Never used Tobacco Advance Directives: No Advance Directives Information Provided: No service: No Current occupational status: unemployed Physical Exam ED Vital Signs: Vital Signs - 24 hr 04/09/23 11:58 04/09/23 14:34 Temperature 97.1 F Pulse Rate 78 96 Respiratory Rate 16 14 Blood Pressure 129/78 126/87 Pulse Oximetry 98 99 Oxygen Delivery Method Room Air Room Air BMI result Body Mass Index 28.0 vss Appearance: Alert.? Oriented X3.? No acute distress.? Patient appears unkempt. Smells like alcohol. Head: Normocephalic, atraumatic, no step-offs or deformities Eyes: Pupils equal, round and reactive to light.? ENT: Pharynx normal.? Neck: Normal inspection.? Neck supple.? CVS: Normal heart rate and rhythm.? Pulses normal.? Respiratory: No respiratory distress.? Breath sounds normal.? Abdomen: Soft and nontender.? Skin: Skin warm and dry.? Normal skin color.? Normal skin turgor.? Extremities: No lower extremity edema.? No calf ttp. Global weakness Neuro: Oriented X 3.? No motor deficit.? No sensory deficit. CN 2-12 intact . Negative Romberg and pronator drift. Course Reevaluation(s) Reevaluation #1: Patient was stuck multiple times by nurses and techs to try to get labs, he does not want them anymore he has a very difficult stick. Explained him it would benefit if anything is wrong. Refusing. Ct head left frontal scalp soft tissue swelling/hematoma. No clavicular fx. No acute intracranial process seen. No acute fractures, dislocations or subluxations in the cervical spine. Patient evidently intoxicated. At this time patient refusing labs. Cannot force labs on patient. Not SI or HI. hemodynamically stable Will place patient observation to allow for patient to become clinically sober. At time observation was started patient common cooperative no acute distress will continue to monitor. Time: 16:30 Reevaluation #2: Sign out to Irma Diaz Time: 16:31 Reevaluation #3: Patient continues to refuse blood work. Patient will continue to be monitored until he is clinically sober at which point he can be discharged. Time: 17:47 Medical Decision Making Medical Decision Making [facility] Narrative: 1151 53-year-old male presents status post unwitnessed fall. Reports alcohol use prior to arrival. Physical exam patient appears unkempt, smells like alcohol. Neurological assessment nonfocal. Patient with large left-sided hematoma to head and temporal region Concerns for acute alcohol intoxication, will rule out traumatic injuries to head such as intracranial hemorrhage. Also rule out injuries to cervical spine. Patient in collar for precaution. No signs of traumatic injury to chest, abdomen or pelvis. No preceding symptoms to fall that patient recalls unlikely PE or ACS Plan imaging, labs. Differential Diagnosis Differential Diagnoses: The differential diagnosis associated with the presentation includes Concerns for acute alcohol intoxication, will rule out traumatic injuries to head such as intracranial hemorrhage. Also rule out injuries to cervical spine. Patient in collar for precaution. No signs of traumatic injury to chest, abdomen or pelvis. No preceding symptoms to fall that patient recalls unlikely PE or ACS Admission/Observation Consideration of admission/observation: Escalation of care including admission/observation considered possible Lab Data Labs: Refusing Independent Interpretation I performed an independent interpretation of an: EKG (Ventricular rate of 60, KS normal, QRS normal, QT/QTC normal. No ST elevations or inversions concerning for acute ischemia.) and CT Scan (CT/CT head/brain wo IV con IMPRESSION: Left frontal scalp soft tissue swelling/hematoma. No calvarial fracture. No acute intracranial process seen. No visible acute fracture, dislocation or subluxation seen in cervical spine.) Radiology Impression Discussion of test interpretation with radiology: I have reviewed the radiologist's reading. External Record Review External record reviewed: Inpatient record, Office record, Outpatient record, Prior outpatient labs, Prior outpatient radiology, Primary care record and Outside ED record Chronic Conditions Patient?s care impacted by: Other (ETHOANOL abuse ) Social Determinants Patient?s care significantly limited by Social Determinants of Health including: Inadequate housing, Low income, Alcoholism and drug addiction in family, Problems related to primary support group, Unemployment, Problems related to employment and Other Social Determinant of Health Critical Care Time Critical Care Time Critical Care Time: No Discharge Plan Discharge Clinical Impression: ETOH abuse, Alcoholic intoxication, Concussion, Fall Patient Disposition: Still a Patient Prescriptions: No Action folic acid 1 mg Tablet 1 mg PO DAILY Qty: 30 0RF amoxicillin-pot clavulanate 875-125 mg tablet 1 tab PO BID Qty: 20 0RF prednisone 10 mg tablet See Rx Instructions .Route .COMPLEX Qty: 45 0RF Rx Instructions: 10 mg orally; 5 tabs p.o. daily x3 days; 4 tabs p.o. daily x3 days; 3 tabs daily x3 days; 2 tabs daily x3 days; 1 tab daily x3 days cephalexin 500 mg capsule 500 mg PO Q6H 7 Days Qty: 28 0RF doxycycline hyclate 100 mg tablet 100 mg PO BID 7 Days Qty: 14 0RF
--- NOTE | 2023-04-09 11:52 | ECG_ITS ---
Test Reason : FALL Blood Pressure : / mmHG Vent. Rate : 060 BPM Atrial Rate : 060 BPM P-R Int : 194 ms QRS Dur : 100 ms QT Int : 428 ms P-R-T Axes : 031 -11 013 degrees QTc Int : 428 ms Normal sinus rhythm Inferior infarct (cited on or before 04-NOV-2020) Possible Anterior infarct (cited on or before 27-AUG-2022) Abnormal ECG When compared with ECG of 24-MAR-2023 15:40, No significant change was found Referred By: Martina Trimble Electronically Signed By:ANNE JUDD MD
[2023-04-09 11:58] VITALS: BP 110/70; BP 129/78; PULSE 72; PULSE 78; RESP 16; TEMP 36.2; O2SAT 98; BMI 28.0
--- NOTE | 2023-04-09 12:40 | MHC.RECOVRN ---
Met with pt in [facility] after pt presented to ED after a fall, intoxicated. Pt reports his brother is sending him a bus ticket to return to [place] this week. Pt not yet medically cleared. Will continue to follow.
[2023-04-09 14:34] VITALS: BP 126/87; PULSE 96; RESP 14; O2SAT 99
--- NOTE | 2023-04-09 15:58 | MHC.RECOVRN ---
Pt not medically clear yet, CARE Team aware.
--- NOTE | 2023-04-09 16:11 | PC.NURSE ---
multiple attempts at blood work, patient difficult stick. provider made aware. awaiting results of CT scan
--- NOTE | 2023-04-09 18:53 | PC.NURSE ---
lab work no longer needed, patient refusing provider aware.
[2023-04-09 22:00] VITALS: RESP 16
--- NOTE | 2023-04-09 22:18 | PC.NURSE ---
pt resting comfortably with eyes closed, breathing even and unlabored no apparent distress
[2023-04-10 00:16] LABS: Amphetamine Screen Urine Not Detected (Not Detect); Barbiturates, Urine Not Detected (Not Detect); Benzodiazepines Screen Urine Not Detected (Not Detect); Cannabinoid Screen Urine Not Detected (Not Detect); Cocaine Screen Urine Not Detected (Not Detect); Fentanyl, urine Not Detected (Not Detect); Opiate Screen Urine Not Detected (Not Detect); Phencyclidine Screen Urine Not Detected (Not Detect)
[2023-04-10 00:35] VITALS: BP 148/93; PULSE 79; RESP 18; TEMP 36.6; O2SAT 97
--- NOTE | 2023-04-10 01:01 | MHC.EDTECH ---
Addendum entered by Denice Tai 04/10/23 06:31: Attempted to change patient over,patient refused RN aware of patient not being changed and provider aware. Original Note: Patient refused labs prior to this tech taking over assignment at 2300, provider are aware
--- NOTE | 2023-04-10 02:43 | PC.NURSE ---
Pt aox4 resting at the bedside. Reports left side facial pain as pt reports where I got hit . Food and liquid provided as requested. No apparent distress noted.
[2023-04-10 04:36] VITALS: BP 139/68; PULSE 86; RESP 18; O2SAT 96
[2023-04-10 08:04] VITALS: BP 144/92; PULSE 87; RESP 20; O2SAT 98
== END 2023-04-10 08:03 | disposition still patient (30) ==
PROVIDERS: Physician Assistant; Emergency Provider Emergency Medicine
DX: S06.0X0A Concussion without loss of consciousness, initial encounter (principal); M54.2 Cervicalgia; R94.31 Abnormal electrocardiogram [ECG] [EKG]; R51.9 Headache, unspecified; F10.10 Alcohol abuse, uncomplicated; Y90.9 Presence of alcohol in blood, level not specified; W01.0XXA Fall on same level from slipping, tripping and stumbling without subsequent striking against object, initial encounter; Y93.9 Activity, unspecified; Y92.9 Unspecified place or not applicable; Y99.9 Unspecified external cause status; Z79.899 Other long term (current) drug therapy
CPT/HCPCS: 70450; 72125; 80307; 93005; 99284; 99285

== ENCOUNTER 2023-04-13 21:49 | Emergency (ER) | payer MEDICAID, SELFPAY ==
--- NOTE | ~2023-04-13 | CT_ITS ---
EXAMINATION: CT HEAD WITHOUT CONTRAST CLINICAL INFORMATION: Headache. COMPARISON: 04/09/2023. TECHNIQUE: Contiguous axial imaging was performed from the skull base to vertex without intravenous administration of contrast. This CT examination was performed using dose optimization techniques as appropriate, variously including the following: *Automated exposure control *Adjustment of mA and/or kV according to patient size (this includes techniques or standardized protocols for targeted exams where dose is matched to indication/reason for exam; i.e. extremities or head) *Use of iterative reconstruction technique DLP: 746 mGy-cm FINDINGS: The lateral, third and fourth ventricles are normally outlined. The cortical sulci and basal cisterns are normally outlined as well. There is no acute territorial defect, hemorrhage or midline shift. The extra-axial spaces are unremarkable. Calvarium: Intact. Maxillofacial sinuses and mastoids: Clear as visualized. CT/CT head/brain wo IV con IMPRESSION: No acute intracranial pathology.
[2023-04-13 21:51] VITALS: BP 124/82; PULSE 102; O2SAT 97
[2023-04-13 21:58] VITALS: BP 156/94; PULSE 92; RESP 18; TEMP 37.2; O2SAT 98; BMI 27.4
--- NOTE | 2023-04-13 22:40 | ED.FALL ---
HPI - Fall General Chief Complaint: Fall Stated Complaint: Fall w/ headstrike, +LOC, collared Time Seen by Provider: 04/13/23 21:56 Source: patient Mode of arrival: EMS Limitations: no limitations History of Present Illness HPI Narrative: Patient comes to the emergency room complaining of a fall after drinking alcohol. According to EMS, the patient is coming from home, patient's girlfriend called 911. Patient states that he remembers falling, possibly hitting his head. He is not sure if he lost consciousness. Patient states that he does not have any neck pain at all. Patient denies any other injury. Related Data Previous Rx's Medication Instructions Recorded amoxicillin 875 mg-potassium 1 tab PO BID #20 tabs 08/31/22 clavulanate 125 mg tablet folic acid 1 mg tablet 1 mg PO DAILY #30 tabs 08/31/22 prednisone 10 mg tablet See Rx Instructions .Route 08/31/22 .COMPLEX #45 tabs cephalexin 500 mg capsule 500 mg PO Q6H 7 days #28 caps 01/11/23 doxycycline hyclate 100 mg tablet 100 mg PO BID 7 days #14 tabs 01/11/23 Allergies Allergy/AdvReac Type Severity Reaction Status Date / Time clams Allergy Severe HIVES, Verified 04/06/23 12:42 DIFFICULTY BREATHING Review of Systems Review of Systems: Constitutional : No Weight loss, No Fever, No Chills, No Night Sweats, No Fatigue, No Malaise ENT/Mouth : No Hearing loss, No Ear Pain, No Nasal Congestion, No Sinus Pain, No Hoarseness, No sore throat, No Rhinorrhea, No Swallowing Difficulty Eyes: No Eye Pain, No Swelling, No Redness, No Foreign Body, No Discharge, No Vision Changes Cardiovascular : No Chest Pain, No SOB, No Dyspnea on Exertion, No Orthopnea, No Edema, No Palpitations Respiratory : No Cough, No Sputum, No Wheezing, No Smoke Exposure, No Dyspnea Gastrointestinal : No Nausea, No Vomiting, No Diarrhea, No Constipation, No abdominal Pain, No Hematochezia, No Melena Genitourinary : no irregular bleeding, No Dysuria, No Urinary Frequency, No Hematuria, No Urinary Incontinence, No Urgency, No Flank Pain, No Urinary Flow Changes, No Hesitancy Musculoskeletal : No joint pain, No Myalgias, No Joint Swelling Skin : No Skin Lesions, No rash Neuro : No Weakness, No Numbness, No Paresthesias, No Loss of Consciousness, No Dizziness, No Headache Psych : No Anxiety/Panic, No Depression, No SI/HI/AH/VH, admits to drinking alcohol Heme/Lymph: No Bruising, No Bleeding,No Lymphadenopathy Endocrine : No Polyuria, No Polydipsia, No Temperature Intolerance [facility] Past Medical History Medical History High cholesterol HTN (hypertension) ETOH abuse Social History Social History Household Members: None Housing: Homeless Do you presently have visiting nurse or other home services: No Alcohol intake: current Alcohol intake frequency: 3 or more drinks per day Alcohol type: beer Patient Tobacco Use Status: Never used Tobacco Use of substances other than those prescribed or required for medical reasons: No Advance Directives: No Advance Directives Information Provided: No service: No Current occupational status: unemployed Physical Exam Vital Signs: Vital Signs: Last Vital Signs Temp 98.9 F 04/13/23 21:58 Pulse 92 04/13/23 21:58 Resp 18 04/13/23 21:58 BP 156/94 H 04/13/23 21:58 Pulse Ox 98 04/13/23 21:58 O2 Del Method Room Air 04/13/23 21:58 BMI result Body Mass Index 27.4 Const: Other: Appearance: Alert. Oriented X3. No acute distress. No signs of obvious injury Eyes: Pupils equal, round and reactive to light. ENT: Pharynx normal. No C-spine tenderness, normal flexion-extension, painless Neck: Normal inspection. Neck supple. No lymph nodes noted. No crepitus CVS: Normal heart rate and rhythm. Pulses normal. Normal S1 and S2 Respiratory: No respiratory distress. Breath sounds normal. No Wheezing. No rales Abdomen: Soft and nontender. No rigidity. No distention. Skin: Skin warm and dry. Normal skin color. Normal skin turgor. No scalp injuries Extremities: No lower extremity edema. No Lacerations. No Rash Neuro: Oriented X 3. No motor deficit. No sensory deficit. Moving all extremities. No slurred speech. CN 2 through 12 grossly intact Psych: calm, cooperative, normal affect Course Course Course Narrative: -patient is alert and oriented x3, calm, cooperative, clinically sober -patient states he believes that he hit his head, unclear if he lost consciousness. Patient states that he does not have any neck pain at all or any other injuries. -head CT pending Medical Decision Making Medical Decision Making MDM Narrative: -my interpretation a CT scan of the head: No intracranial bleed -patient remains alert and oriented x3, no acute distress, steady gait Differential Diagnosis Differential Diagnoses: The differential diagnosis associated with the presentation includes (Intracranial bleed, alcohol intoxication, polysubstance abuse) Admission/Observation Consideration of admission/observation: Escalation of care including admission/observation considered (Patient was under observation in the emergency room and to feeling unsteady walking and medically cleared) Independent Interpretation I performed an independent interpretation of an: CT Scan Radiology Impression Discussion of test interpretation with radiology: I have reviewed the radiologist's reading. Radiologist Impression: FINDINGS: The lateral, third and fourth ventricles are normally outlined. The cortical sulci and basal cisterns are normally outlined as well. There is no acute territorial defect, hemorrhage or midline shift. The extra-axial spaces are unremarkable. Calvarium: Intact. Maxillofacial sinuses and mastoids: Clear as visualized. CT/CT head/brain wo IV con IMPRESSION: No acute intracranial pathology. Discharge Plan Discharge Clinical Impression: ETOH abuse, Fall Patient Disposition: Home, Self-Care Instructions: Abuse of Alcohol (ED) Additional Instructions: Please follow-up with your primary care physician tomorrow. If you have any worsening or new symptoms, please return to the emergency room or call 911 Prescriptions: No Action folic acid 1 mg Tablet 1 mg PO DAILY Qty: 30 0RF amoxicillin-pot clavulanate 875-125 mg tablet 1 tab PO BID Qty: 20 0RF prednisone 10 mg tablet See Rx Instructions .Route .COMPLEX Qty: 45 0RF Rx Instructions: 10 mg orally; 5 tabs p.o. daily x3 days; 4 tabs p.o. daily x3 days; 3 tabs daily x3 days; 2 tabs daily x3 days; 1 tab daily x3 days cephalexin 500 mg capsule 500 mg PO Q6H 7 Days Qty: 28 0RF doxycycline hyclate 100 mg tablet 100 mg PO BID 7 Days Qty: 14 0RF
== END 2023-04-14 00:44 | disposition home or self-care (01) ==
PROVIDERS: Emergency Provider Emergency Medicine
DX: F10.10 Alcohol abuse, uncomplicated (principal); Y90.9 Presence of alcohol in blood, level not specified; Z91.81 History of falling; I10 Essential (primary) hypertension; E78.5 Hyperlipidemia, unspecified
CPT/HCPCS: 70450; 99284

== ENCOUNTER 2023-04-19 11:59 | Emergency (ER) | payer MEDICAID, SELFPAY ==
--- NOTE | ~2023-04-19 | CT_ITS ---
EXAMINATION: CT HEAD WITHOUT CONTRAST CT CERVICAL SPINE WITHOUT CONTRAST CLINICAL INFORMATION: Falls. Intoxication. COMPARISON: CT head and cervical spine 04/09/2023. TECHNIQUE: Transfer Driver images were obtained. CT imaging of the in head and cervical spine was performed without contrast. Data was reformatted into multiplanar images at the acquisition station. This CT examination was performed using dose optimization techniques as appropriate, including one or more of the following: Automated exposure control, iterative reconstruction, and adjustment of technique factors (mA and/or kVp) according to patient size (this includes techniques or standardized protocols for targeted exams where dose is matched to indication/reason for exam). Fleischner Society criteria for the followup of incidental pulmonary nodules was implemented if appropriate. DLP: 1435 mGy-cm. FINDINGS: Head: There is no acute intracranial hemorrhage or abnormal extra-axial collection. No intracranial mass effect or midline shift. Lateral and third ventricles are normal. No hydrocephalus. Lemus-white matter differentiation is grossly preserved and there is no evidence of acute territorial infarct. The calvarium and skull base are intact. Mastoid air cells and middle ear cavities are well aerated. Mild to moderate paranasal sinus disease primarily affecting the alveolar recesses of both maxillary sinuses that may at least partially be odontogenic. Globes and orbits are grossly symmetric. Cervical spine: Spinal alignment is normal. Vertebral heights are preserved. No acute cervical spinal fracture. No abnormal prevertebral soft tissue swelling. Grossly no spinal canal compromise. Visualized soft tissues of the neck are normal. Coarse nonspecific interstitial markings at the apices of both lungs. CT/CT cervical spine wo IV con IMPRESSION: Head: No acute intracranial hemorrhage. Cervical Spine: No acute fracture and no posttraumatic spinal subluxation.
--- NOTE | ~2023-04-19 | CT_ITS ---
EXAMINATION: CT HEAD WITHOUT CONTRAST CT CERVICAL SPINE WITHOUT CONTRAST CLINICAL INFORMATION: Falls. Intoxication. COMPARISON: CT head and cervical spine 04/09/2023. TECHNIQUE: Marketing Production Specialist images were obtained. CT imaging of the in head and cervical spine was performed without contrast. Data was reformatted into multiplanar images at the acquisition station. This CT examination was performed using dose optimization techniques as appropriate, including one or more of the following: Automated exposure control, iterative reconstruction, and adjustment of technique factors (mA and/or kVp) according to patient size (this includes techniques or standardized protocols for targeted exams where dose is matched to indication/reason for exam). Fleischner Society criteria for the followup of incidental pulmonary nodules was implemented if appropriate. DLP: 1435 mGy-cm. FINDINGS: Head: There is no acute intracranial hemorrhage or abnormal extra-axial collection. No intracranial mass effect or midline shift. Lateral and third ventricles are normal. No hydrocephalus. Lemus-white matter differentiation is grossly preserved and there is no evidence of acute territorial infarct. The calvarium and skull base are intact. Mastoid air cells and middle ear cavities are well aerated. Mild to moderate paranasal sinus disease primarily affecting the alveolar recesses of both maxillary sinuses that may at least partially be odontogenic. Globes and orbits are grossly symmetric. Cervical spine: Spinal alignment is normal. Vertebral heights are preserved. No acute cervical spinal fracture. No abnormal prevertebral soft tissue swelling. Grossly no spinal canal compromise. Visualized soft tissues of the neck are normal. Coarse nonspecific interstitial markings at the apices of both lungs. CT/CT head/brain wo IV con IMPRESSION: Head: No acute intracranial hemorrhage. Cervical Spine: No acute fracture and no posttraumatic spinal subluxation.
[2023-04-19 12:10] VITALS: BP 132/60; PULSE 84; O2SAT 99
[2023-04-19 12:24] VITALS: BP 115/75; PULSE 75; RESP 18; TEMP 36.4; O2SAT 95; BMI 30.1
--- NOTE | 2023-04-19 13:15 | ED_ITS ---
HPI - Alcohol General Chief Complaint: ETOH/Substance Use Stated Complaint: ETOH INTOX Time Seen by Provider: 04/19/23 12:36 Source: patient, EMS and RN notes reviewed Mode of arrival: EMS Limitations: altered mental status History of Present Illness HPI narrative: Patient is a 53-year-old male presenting to the emergency department via EMS, admits to drinking alcohol today. He reports recent falls but denies any physical complaint. Denies any neck or back pain. Denies headache or vision changes. Denies nausea or vomiting. He is not anticoagulated. MD complaint: alcohol intoxication Last drink: Hours (ago) Chronic alcohol use: Yes Previous visits for alcohol intoxication: Yes Recent trauma: No Associated symptoms: denies other symptoms Treatments prior to arrival: none Related Data Previous Rx's Medication Instructions Recorded amoxicillin 875 mg-potassium 1 tab PO BID #20 tabs 08/31/22 clavulanate 125 mg tablet folic acid 1 mg tablet 1 mg PO DAILY #30 tabs 08/31/22 prednisone 10 mg tablet See Rx Instructions .Route 08/31/22 .COMPLEX #45 tabs cephalexin 500 mg capsule 500 mg PO Q6H 7 days #28 caps 01/11/23 doxycycline hyclate 100 mg tablet 100 mg PO BID 7 days #14 tabs 01/11/23 Allergies Allergy/AdvReac Type Severity Reaction Status Date / Time clams Allergy Severe HIVES, Verified 04/06/23 12:42 DIFFICULTY BREATHING Review of Systems Review of Systems: As per HPI. Yes all other systems are reviewed and are negative PMFSH Past Medical History Medical History High cholesterol HTN (hypertension) ETOH abuse Social History Social History Household Members: None Housing: Homeless Do you presently have visiting nurse or other home services: No Alcohol intake: current Alcohol intake frequency: 3 or more drinks per day Alcohol type: beer Patient Tobacco Use Status: Never used Tobacco Smoked in Last 30 Days: Yes Use of substances other than those prescribed or required for medical reasons: Unknown Advance Directives: No service: No Current occupational status: unemployed Physical Exam ED Vital Signs: Vital Signs - 24 hr 04/19/23 12:24 04/19/23 16:09 Temperature 97.6 F 98.2 F Pulse Rate 75 70 Respiratory Rate 18 16 Blood Pressure 115/75 118/74 Pulse Oximetry 95 97 Oxygen Delivery Method Room Air Room Air BMI result Body Mass Index 30.1 Vital signs have been reviewed and appear to be correct. Blood pressure normal. Heart rate normal. Respiratory rate normal. Temperature normal. Oxygen saturation normal. Const General: no acute distress, alert, awake, intoxicated appearing and poor hygiene Nutritional Appearance: average body habitus Orientation/consciousness: patient oriented x3 HENMT Head: Yes normal to inspection, Yes No palpable skull fracture present, Yes normocephalic and Yes atraumatic Ears: hearing grossly normal bilaterally, external ears normal and TM's normal bilaterally General nose exam: Normal external nose present, Normal nasal mucous membranes and turbinates present and Normal septum present Face and sinus: Yes sinuses nontender Mouth: Normal oral and palatal mucosa present, lip normal and tongue normal Throat: Yes posterior oropharynx normal Eyes Pupils: Equal, round and reactive pupils present Neck Neck: Yes normal visual inspection and Yes full ROM Chest Chest palpation & inspection: normal inspection of the chest and normal palpation of entire chest wall Resp Effort & Inspection: normal respiratory effort Auscultation: clear to auscultation bilaterally Cardio Rate: regular rate Rhythm: regular rhythm Heart sounds: S1 normal heart sound present and S2 normal heart sound present GI Inspection: Yes normal to inspection Palpation (GI): Soft to palpation and nontender General: Yes no CVA tenderness Back/Spine/Pelvis Back: no CVA tenderness Cervical Spine: No Cervical spine tenderness and No step off deformity Thoracic/Lumbar Spine: No thoracic spinal tenderness and No lumbar spinal tenderness Skin General skin exam: elasticity normal and turgor normal Neuro General: patient oriented x3, tone normal and moves all extremities Cranial nerves: Yes Equal, round and reactive pupils present Extrem General: Yes normal to inspection, Yes full ROM and Yes capillary refill normal Psych Appearance: disheveled Mental Status: mental status grossly normal Speech and movement: Normal speech and movement present Course Course Course Narrative: Patient up and ambulating with his walker which is his baseline Medical Decision Making Medical Decision Making MDM Narrative: Patient is a 53-year-old male presenting to the emergency department via EMS, admits to drinking alcohol today. On exam patient is awake, A+Ox3, VS WNL, afebrile, normal neurological exam without focal deficits, . Given reported symptoms and physical exam findings, initial differential includes acute alcohol intoxication, polysubstance abuse. Less likely ICH, skull fracture, cervical fracture but will obtain CT scans. Patient signed out to Jana, ROPE LAYING MACHINE OPERATOR pending CT results. Differential Diagnosis Differential Diagnoses: The differential diagnosis associated with the presentation includes As per MDM. Admission/Observation Consideration of admission/observation: Escalation of care including admission/observation considered External Record Review External record reviewed: Inpatient record, Office record and Outpatient record Discharge Plan Discharge Clinical Impression: Alcoholic intoxication Patient Disposition: Home, Self-Care Instructions: Alcohol Intoxication (ED) Prescriptions: No Action folic acid 1 mg Tablet 1 mg PO DAILY Qty: 30 0RF amoxicillin-pot clavulanate 875-125 mg tablet 1 tab PO BID Qty: 20 0RF prednisone 10 mg tablet See Rx Instructions .Route .COMPLEX Qty: 45 0RF Rx Instructions: 10 mg orally; 5 tabs p.o. daily x3 days; 4 tabs p.o. daily x3 days; 3 tabs daily x3 days; 2 tabs daily x3 days; 1 tab daily x3 days cephalexin 500 mg capsule 500 mg PO Q6H 7 Days Qty: 28 0RF doxycycline hyclate 100 mg tablet 100 mg PO BID 7 Days Qty: 14 0RF
--- NOTE | 2023-04-19 14:47 | MHC.RECOVSUP ---
Attempted to meet with pt in ED6[facility], however pt would not wake up to communicate from here. Pt is familiar with recovery resources from previous visits and can follow up from home.
[2023-04-19 16:09] VITALS: BP 118/74; PULSE 70; RESP 16; TEMP 36.8; O2SAT 97
[2023-04-19 18:21] VITALS: BP 116/70; PULSE 62; RESP 16; TEMP 36.1; O2SAT 97
--- NOTE | 2023-04-19 18:25 | MHC.EDTECH ---
PATIENT ATE 100 % OF MEAL AND DRANK 360 ML FLUIDS .
== END 2023-04-19 18:38 | disposition home or self-care (01) ==
PROVIDERS: Emergency Provider Emergency Medicine
DX: F10.220 Alcohol dependence with intoxication, uncomplicated (principal); Y90.9 Presence of alcohol in blood, level not specified; R29.6 Repeated falls; Z91.81 History of falling; I10 Essential (primary) hypertension; E78.5 Hyperlipidemia, unspecified; Z79.899 Other long term (current) drug therapy
CPT/HCPCS: 70450; 72125; 99284

== ENCOUNTER 2023-05-05 11:52 | Emergency (ER) | payer MEDICAID, SELFPAY ==
--- NOTE | ~2023-05-05 | CT_ITS ---
STUDY: Unenhanced CT of the head and cervical spine INDICATION: Head trauma COMPARISON: 04/19/2023 head TECHNIQUE: Continuous helical imaging obtained through the head and cervical spine without IV contrast. Reconstructed images performed in the coronal and sagittal planes. This CT examination was performed using dose optimization techniques as appropriate, variously including the following: *Automated exposure control *Adjustment of mA and/or kV according to patient size (this includes techniques or standardized protocols for targeted exams where dose is matched to indication/reason for exam; i.e. extremities or head) *Use of iterative reconstruction technique TOTAL EXAM DLP: 762, 345 mGy-cm, head and cervical spine respectively. FINDINGS: Head: James cisterna magna. Mild atrophy. No intracranial hemorrhage, extra-axial fluid collections, fractures or soft tissue hematomas identified after trauma. No evolving infarct, mass lesion, mass effect or midline shift seen. Intraorbital structures are unremarkable. Bilateral maxillary mucosal sinus disease is present. Remaining sinuses and mastoids are clear. Leftward anterior and rightward mid septal deviations again seen. Cervical spine: Cervical lordosis is maintained. Trace leftward curvature of the cervical spine. Vertebral bodies and intervertebral discs are maintained in height. Odontoid is intact, posterior elements are aligned. No prevertebral soft tissue swelling, fracture or traumatic subluxation. No spinal canal narrowing. Hypertrophic facet changes. Multilevel mild right neuroforaminal narrowings. Nonspecific cervical lymph nodes. No definite soft tissue or thyroid abnormality. Lung apices are clear. CT/CT cervical spine wo IV con IMPRESSION: No acute posttraumatic intracranial or cervical spine pathology.
--- NOTE | ~2023-05-05 | CT_ITS ---
STUDY: Unenhanced CT of the head and cervical spine INDICATION: Head trauma COMPARISON: 04/19/2023 head TECHNIQUE: Continuous helical imaging obtained through the head and cervical spine without IV contrast. Reconstructed images performed in the coronal and sagittal planes. This CT examination was performed using dose optimization techniques as appropriate, variously including the following: *Automated exposure control *Adjustment of mA and/or kV according to patient size (this includes techniques or standardized protocols for targeted exams where dose is matched to indication/reason for exam; i.e. extremities or head) *Use of iterative reconstruction technique TOTAL EXAM DLP: 762, 345 mGy-cm, head and cervical spine respectively. FINDINGS: Head: James cisterna magna. Mild atrophy. No intracranial hemorrhage, extra-axial fluid collections, fractures or soft tissue hematomas identified after trauma. No evolving infarct, mass lesion, mass effect or midline shift seen. Intraorbital structures are unremarkable. Bilateral maxillary mucosal sinus disease is present. Remaining sinuses and mastoids are clear. Leftward anterior and rightward mid septal deviations again seen. Cervical spine: Cervical lordosis is maintained. Trace leftward curvature of the cervical spine. Vertebral bodies and intervertebral discs are maintained in height. Odontoid is intact, posterior elements are aligned. No prevertebral soft tissue swelling, fracture or traumatic subluxation. No spinal canal narrowing. Hypertrophic facet changes. Multilevel mild right neuroforaminal narrowings. Nonspecific cervical lymph nodes. No definite soft tissue or thyroid abnormality. Lung apices are clear. CT/CT head/brain wo IV con IMPRESSION: No acute posttraumatic intracranial or cervical spine pathology.
[2023-05-05 12:05] VITALS: BP 104/68; BMI 27.5
[2023-05-05 12:08] VITALS: BP 94/66; PULSE 84; RESP 16; TEMP 36.4; O2SAT 97
--- NOTE | 2023-05-05 12:24 | PC.NURSE ---
a&ox3, vss aside from pt having soft BP at this time. pt biba d/t headstrike on pavement. pt was outside drinking beer and hard liquor when he stumbled/fell and hit the back of his head. pt states that he was been drinking since 9 am. pt c/o 8/10 head pain that radiates to neck. pt also verbalizing lightheaded/dizziness. c-collar in place. respirations even and unlabored. call souza placed within reach.
--- NOTE | 2023-05-05 13:47 | PC.NURSE ---
pt to CT at this time. will obtain IV access/draw labs/initiate IV fluid when pt returns.
[2023-05-05 13:56] VITALS: BP 91/64; PULSE 85; RESP 16; O2SAT 98
--- NOTE | 2023-05-05 14:40 | PC.NURSE ---
this RN and BRAYAN ortiz attempted to obtain IV access multiple times w/ no success. tech bedside attempting to obtain labs. delay in fluid administration d/t not having access at this time. will administer IV fluids when able. will notify provider.
--- NOTE | 2023-05-05 14:50 | PC.NURSE ---
dr. paige aware that IV access was unobtainable by [address] paige now bedside attempting to obtain IV access via ultrasound. will administer fluids when able.
--- NOTE | 2023-05-05 14:57 | ED_ITS ---
HPI - General Adult General Chief complaint: Head Injury Stated complaint: FALL NECK PAIN ETOH + COLLAR Time Seen by Provider: 05/05/23 12:36 Source: patient and EMS Mode of arrival: EMS Limitations: altered mental status History of Present Illness HPI narrative: Patient drinking all morning fell backwards and hit his head, question of LOC but most likely due to intoxication. EMS brings the patient in with ccollar in place Onset (ago): hour(s) Severity: moderate Related Data Previous Rx's Medication Instructions Recorded amoxicillin 875 mg-potassium 1 tab PO BID #20 tabs 08/31/22 clavulanate 125 mg tablet folic acid 1 mg tablet 1 mg PO DAILY #30 tabs 08/31/22 prednisone 10 mg tablet See Rx Instructions .Route 08/31/22 .COMPLEX #45 tabs cephalexin 500 mg capsule 500 mg PO Q6H 7 days #28 caps 01/11/23 doxycycline hyclate 100 mg tablet 100 mg PO BID 7 days #14 tabs 01/11/23 Allergies Allergy/AdvReac Type Severity Reaction Status Date / Time clams Allergy Severe HIVES, Verified 05/05/23 12:04 DIFFICULTY BREATHING Review of Systems 2 Review of Systems: Yes Unobtainable due to mental status Neurologic: Denies Sensory deficit (Neuro) [facility] Past Medical History Medical History High cholesterol HTN (hypertension) ETOH abuse Social History Social History Household Members: None Housing: Homeless Do you presently have visiting nurse or other home services: No Alcohol intake: current Alcohol intake frequency: 3 or more drinks per day Alcohol type: hard liquor Patient Tobacco Use Status: Never used Tobacco Smoked in Last 30 Days: Yes Use of substances other than those prescribed or required for medical reasons: No Advance Directives: No service: No Current occupational status: unemployed Physical Exam ED Vital Signs: Vital Signs - 24 hr 05/05/23 12:08 05/05/23 13:56 Temperature 97.5 F Pulse Rate 84 85 Respiratory Rate 16 16 Blood Pressure 94/66 91/64 Pulse Oximetry 97 98 Oxygen Delivery Method Room Air Room Air BMI result Body Mass Index 27.5 Const Other: Patient looking older than stated age, intoxicated Nutritional Appearance: average body habitus Orientation/consciousness: oriented to person and patient oriented x3 Limitations: no limitations HENMT Head: Yes normal to inspection Ears: external ears normal General nose exam: Normal external nose present Mouth: Normal oral and palatal mucosa present and oropharynx normal Throat: Yes posterior oropharynx normal Eyes General: appearance normal, both eyes and all related structures Neck Neck: Yes normal visual inspection Chest Chest palpation & inspection: normal inspection of the chest Resp Auscultation: clear to auscultation bilaterally Cardio Jugular venous distension: no JVD Rate: regular rate Rhythm: regular rhythm Heart sounds: S1 normal heart sound present and S2 normal heart sound present GI Inspection: Yes normal to inspection Palpation (GI): Soft to palpation, nontender and No hepatosplenomegaly present Auscultation: normal bowel sounds General: Yes no CVA tenderness Back/Spine/Pelvis Back: no CVA tenderness Skin General skin exam: no rashes or lesions noted Neuro General: oriented to person and patient oriented x3 Cranial nerves: Yes CN's II-XII intact bilaterally Motor exam (neuro): 5/5 motor strength present throughout Sensory Exam: No Sensory deficit (Neuro) Extrem General: Yes normal to inspection Psych Appearance: grossly normal Course Reevaluation(s) Reevaluation #1: Procedure note: under sterile conditions patient prepped and US guided 20guage IV place Time: 15:54 Reevaluation #2: Physician observation: patient placed in physician observation for hydration and low BP and to sober up. Will need reevaluation Time: 15:54 Medications Administered Discontinued Medications Generic Name Dose Route Start Last Admin Trade Name Freq PRN Reason Stop Dose Admin Sodium Chloride 1,000 mls @ 500 mls/hr 05/05/23 13:45 05/05/23 15:04 Ns IVCONT 05/05/23 15:44 500 mls/hr .Q2H NOBLE Administration Medical Decision Making Differential Diagnosis Differential Diagnoses: The differential diagnosis associated with the presentation includes (head trauma, cervical spine injury, cerebral bleed, hypotension, hypoglycemia all considered) Admission/Observation Consideration of admission/observation: Escalation of care including admission/observation considered (upon arrival patient considered for admission) Lab Data MDM Lab Attestation statement: I reviewed the patient's lab results. (low sugar elevated BUN) 05/05/23 14:56 05/05/23 14:55 Labs: Lab Results 05/05/23 05/05/23 Range/Units 14:55 14:56 WBC 8.0 (4.8-10.8) X10*3/uL RBC 5.60 (4.60-5.80) X10*6/uL Hgb 17.1 (14.0-18.0) g/dl Hct 51.8 (42.0-52.0) % MCV 92.5 (80.0-98.0) fL MCH 30.5 (27.0-33.0) pg MCHC 33.0 (31.0-36.0) g/dl RDW 13.9 (11.0-16.0) % Plt Count 145 L D (160-400) X10*3/uL MPV 11.3 (9.4-12.4) fL Immature Gran % (Auto) 0.4 (0.0-0.4) % Neut % (Auto) 82.7 H (45-73) % Lymph % (Auto) 11.5 L (20-40) % [place] % (Auto) 4.7 (2-11) % Eos % (Auto) 0.5 (0-4) % Baso % (Auto) 0.2 (0-2) % Lymph # (Auto) 0.9 L (1.2-4.9) X10*3/uL [place] # (Auto) 0.4 (0.1-1.2) X10*3/uL Eos # (Auto) 0.0 (0.0-0.4) X10*3/uL Baso # (Auto) 0.0 (0.0-0.2) X10*3/uL Abs Immat Gran (auto) 0.03 (0.00-0.03) X10*3/uL Absolute Neuts (auto) 6.6 (2.0-8.3) x10*3/uL Absolute Nucleated RBC 0.000 (0.0-0.012) X10*3/uL Nucleated RBC % (auto) 0.0 (0.0-0.2) /100WBC Sodium 143 (135-145) mmol/L Potassium 4.2 (3.3-5.1) mmol/L Chloride 106 (96-108) mmol/L Carbon Dioxide 23 (22-29) mmol/L Anion Gap 18 (12-20) BUN 32 H (9-16) mg/dL Creatinine 1.15 (0.5-1.4) mg/dL Estim Creat Clear Calc 72.7 Estimated GFR > 60 Random Glucose 59 L* (60-115) mg/dL Calcium 8.9 D (8.4-10.2) mg/dL Ethyl Alcohol 207 mg/dL Independent Interpretation I performed an independent interpretation of an: CT Scan (head atrophy no bleed, Cervical no fracture) Radiology Impression Discussion of test interpretation with radiology: I have reviewed the radiologist's reading. (and I agree) Independent Historian Clinical information obtained from an independent historian. History obtained from or confirmed by: EMS Chronic Conditions Patient?s care impacted by: Other (alcoholism) Discharge Plan Discharge Clinical Impression: Acute hypotension, Alcohol intoxication, Acute dehydration Patient Disposition: Still a Patient Prescriptions: No Action folic acid 1 mg Tablet 1 mg PO DAILY Qty: 30 0RF amoxicillin-pot clavulanate 875-125 mg tablet 1 tab PO BID Qty: 20 0RF prednisone 10 mg tablet See Rx Instructions .Route .COMPLEX Qty: 45 0RF Rx Instructions: 10 mg orally; 5 tabs p.o. daily x3 days; 4 tabs p.o. daily x3 days; 3 tabs daily x3 days; 2 tabs daily x3 days; 1 tab daily x3 days cephalexin 500 mg capsule 500 mg PO Q6H 7 Days Qty: 28 0RF doxycycline hyclate 100 mg tablet 100 mg PO BID 7 Days Qty: 14 0RF
[2023-05-05 15:00] LABS: MANUAL DIFF FLAG NO
[2023-05-05 15:02] LABS: Basophils Percent Auto 0.2 % (0-2); Eosinophils Percent Auto 0.5 % (0-4); Hematocrit 51.8 % (42.0-52.0); Hemoglobin 17.1 g/dl (14.0-18.0); Imm Gran Abs Auto 0.03 X10*3/uL (0.00-0.03); Imm Gran Pct Auto 0.4 % (0.0-0.4); Lymphocytes Absolute Auto 0.9 X10*3/uL (1.2-4.9); Lymphocytes Percent Auto 11.5 % (20-40); Mean Corpuscular Hemoglobin 30.5 pg (27.0-33.0); Mean Corpuscular Volume 92.5 fL (80.0-98.0); Mean Platelet Volume 11.3 fL (9.4-12.4); Monocytes Absolute Auto 0.4 X10*3/uL (0.1-1.2); Monocytes Percent Auto 4.7 % (2-11); Neutrophils Absolute Auto 6.6 x10*3/uL (2.0-8.3); Neutrophils Percent Auto 82.7 % (45-73); Platelet Count 145 X10*3/uL (160-400); Red Cell Distribution Width 13.9 % (11.0-16.0)
[2023-05-05] MEDS: 0.9 % Sodium Chloride 1,000 ML 500 ML IVCONT (15:04)
[2023-05-05 15:20] LABS: Anion Gap 18 (12-20); Blood Urea Nitrogen 32 mg/dL (9-16); Calcium 8.9 mg/dL (8.4-10.2); Carbon Dioxide 23 mmol/L (22-29); Chloride 106 mmol/L (96-108); Creatinine Clr Calc Pharmacy 72.7; Estimated Glomerular Filt Rate > 60; Ethanol 207 mg/dL; Glucose Random 59 mg/dL (60-115); Potassium 4.2 mmol/L (3.3-5.1); Sodium 143 mmol/L (135-145)
[2023-05-05 16:11] VITALS: BP 131/88; PULSE 100; RESP 16; TEMP 36.3; O2SAT 99
--- NOTE | 2023-05-05 16:19 | MHC.EDTECH ---
Answered patients call souza. Patient was asking for something to eat. At this time patient is unable to eat awaiting pending results.
[2023-05-05 20:00] VITALS: BP 121/79; PULSE 99; RESP 14; TEMP 36.9; O2SAT 96
[2023-05-05 22:10] VITALS: BP 122/76; PULSE 64; RESP 16; TEMP 36.6; O2SAT 92
[2023-05-06 00:35] VITALS: BP 121/82; PULSE 87; RESP 14; TEMP 36.8; O2SAT 96
--- NOTE | 2023-05-06 00:37 | PC.NURSE ---
Pt aox4 resting at the bedside. VSS. N apparent distress noted. Reports no pain at this time. Drink and sandwich provided. Monitoring is ongoing.
[2023-05-06 02:36] VITALS: RESP 12
--- NOTE | 2023-05-06 02:36 | PC.NURSE ---
Pt sleeping at the bedside in no apparent distress. Breaths are even regular and unlabored with equal chest rises. Monitoring is ongoing.
[2023-05-06 03:59] VITALS: BP 128/85; PULSE 83; RESP 12; TEMP 36.8; O2SAT 97
[2023-05-06 06:34] VITALS: BP 140/94; PULSE 74; RESP 12; TEMP 36.4; O2SAT 97
== END 2023-05-06 06:35 | disposition home or self-care (01) ==
PROVIDERS: Emergency Provider Emergency Medicine
DX: F10.129 Alcohol abuse with intoxication, unspecified (principal); Y90.7 Blood alcohol level of 200-239 mg/100 ml; E86.0 Dehydration; I95.9 Hypotension, unspecified; M54.2 Cervicalgia; R51.9 Headache, unspecified; Z79.899 Other long term (current) drug therapy
CPT/HCPCS: 36415; 70450; 72125; 80048; 80307; 85025; 96360; 96361; 99284

== ENCOUNTER 2023-05-13 20:11 | Emergency (ER) | payer MEDICAID, SELFPAY ==
--- NOTE | ~2023-05-13 | CT_ITS ---
EXAMINATION: CT HEAD WITHOUT CONTRAST CLINICAL INFORMATION: Positive loss of consciousness COMPARISON: CT head from 07/05/2022 TECHNIQUE: Contiguous axial imaging was performed from the skull base to vertex without intravenous administration of contrast. This CT examination was performed using dose optimization techniques as appropriate, variously including the following: *Automated exposure control *Adjustment of mA and/or kV according to patient size (this includes techniques or standardized protocols for targeted exams where dose is matched to indication/reason for exam; i.e. extremities or head) *Use of iterative reconstruction technique DLP: 1047 mGy-cm FINDINGS: There is no evidence of acute intracranial hemorrhage or territorial infarction. James cisterna magna. No abnormal mass effect or midline shift is seen. Lemus to white matter differentiation is well preserved. No extra-axial fluid collections are identified. The ventricles are normal in size. There is no abnormal attenuation within the brain parenchyma. The osseous structures and soft tissues are normal. Mucosal opacification of the right maxillary sinus and mucosal thickening of the left maxillary sinus. Correlation for sinusitis. The mastoid air cells and visualized portions of the paranasal sinuses are well aerated. CT/CT cervical spine wo IV con IMPRESSION: 1. No acute intracranial pathology. 2. James cisterna magna. 3. Mucosal opacification of the right maxillary sinus and mucosal thickening of the left maxillary sinus. Correlation for sinusitis. EXAMINATION: Noncontrast CT scan of the cervical spine. INDICATION: Positive loss of consciousness COMPARISON: CT cervical spine from 05/05/2023 TECHNIQUE: Helical, multidetector axial images were obtained from the occiput to the upper thorax. Coronal and sagittal reformats of the cervical spine were provided for interpretation. DLP: 1047 mGy-cm FINDINGS: No acute fractures or dislocations of the cervical spine are seen. Slight levocurvature. Anatomic alignment and positioning of the vertebral bodies and posterior elements is noted. The atlantoaxial joint and craniovertebral articulations are normal without evidence of subluxation. There is no prevertebral soft tissue swelling. The thyroid gland and visualized portions of the lung apices and mediastinum are unremarkable. IMPRESSION: No acute visible fracture or dislocation.
[2023-05-13 20:15] VITALS: BP 109/73; BP 132/76; PULSE 82; PULSE 83; RESP 18; TEMP 36.3; O2SAT 97; O2SAT 98; BMI 26.3
[2023-05-13 20:30] VITALS: BP 117/82; PULSE 80; RESP 18; TEMP 36.4; O2SAT 98
--- NOTE | 2023-05-13 20:53 | PC.NURSE ---
After assessment, found partial cracked tooth beneath patient on stretcher, placed in container.
[2023-05-13 21:40] LABS: Influenza A PCR NEGATIVE (Negative); Influenza B PCR NEGATIVE (Negative); Resp Syncy Virus RNA Qual PCR NEGATIVE (Negative); SARS COV2 PCR INHOUSE NEGATIVE (Negative)
--- NOTE | 2023-05-13 21:45 | MHC.EDTECH ---
This tech attempted to obtain labs, patient is refusing,BRAYAN Joel and provider made aware
[2023-05-13 21:47] VITALS: BP 102/74; PULSE 74; RESP 18; O2SAT 98
--- NOTE | 2023-05-13 21:51 | MHC.EDTECH ---
Patient agreed to let this tech obtain labs,Upon entry to room patient's belongings were in trash due to be soiled per previous RN. Patient has jacket and sneakers and belongings list completed with security at bedside.
[2023-05-13 22:09] LABS: PLT CLUMP 1; Red Cell Distribution Width 13.5 % (11.0-16.0); SCAN SMEAR FLAG 1
[2023-05-13 22:11] LABS: Basophils Percent Auto 0.3 % (0-2); Eosinophils Absolute Auto 0.2 X10*3/uL (0.0-0.4); Hematocrit 42.8 % (42.0-52.0); Hemoglobin 14.3 g/dl (14.0-18.0); Imm Gran Abs Auto 0.02 X10*3/uL (0.00-0.03); Imm Gran Pct Auto 0.3 % (0.0-0.4); Lymphocytes Absolute Auto 0.7 X10*3/uL (1.2-4.9); Lymphocytes Percent Auto 12.6 % (20-40); Mean Corpuscular HGB Conc 33.4 g/dl (31.0-36.0); Mean Corpuscular Hemoglobin 30.1 pg (27.0-33.0); Mean Corpuscular Volume 90.1 fL (80.0-98.0); Mean Platelet Volume 11.7 fL (9.4-12.4); Monocytes Absolute Auto 0.8 X10*3/uL (0.1-1.2); Monocytes Percent Auto 13.8 % (2-11); Red Blood Count 4.75 X10*6/uL (4.60-5.80)
[2023-05-13 22:15] LABS: Prothrombin Time 11.9 SEC (11.1-13.3)
[2023-05-13 22:21] LABS: MANUAL DIFF FLAG NO; Platelet Count 112 X10*3/uL (160-400); White Blood Count 5.7 X10*3/uL (4.8-10.8)
[2023-05-13 22:23] LABS: Alanine Aminotransferase 38 U/L (0-40); Albumin Level 3.8 g/dL (3.5-5.0); Alkaline Phosphatase 52 U/L (39-117); Anion Gap 15 (12-20); Aspartate Amino Transferase 41 U/L (5-37); Bilirubin Total 0.3 mg/dL (0.0-1.0); Blood Urea Nitrogen 13 mg/dL (9-16); Calcium 8.5 mg/dL (8.4-10.2); Carbon Dioxide 21 mmol/L (22-29); Chloride 112 mmol/L (96-108); Creatinine Clr Calc Pharmacy 100.1; Estimated Glomerular Filt Rate > 60; Ethanol 246 mg/dL; Glucose Random 99 mg/dL (60-115); Potassium 3.7 mmol/L (3.3-5.1); Sodium 144 mmol/L (135-145); Total Protein 6.9 g/dL (6.5-8.0)
--- NOTE | 2023-05-13 22:24 | MHC.EDTECH ---
Belongings are locked in Locker 11 in the pod,copy placed in chart
[2023-05-13 23:21] VITALS: BP 101/71; PULSE 94; RESP 18; TEMP 36.7; O2SAT 97
--- NOTE | 2023-05-13 23:23 | MHC.EDTECH ---
Hourly rounds and vitals completed, patient is unable to give urine sample at this time,will re-attempt. Call souza within reach.
--- NOTE | 2023-05-14 00:43 | ED_ITS ---
HPI - Fall General Chief Complaint: Fall Stated Complaint: witnessed fall,+loc, etoh Time Seen by Provider: 05/13/23 20:29 Source: patient and EMS Mode of arrival: EMS History of Present Illness HPI Narrative: 53-year-old male known to this ER is brought in by EMS when he call them for a reported head injury and then on arrival EMS states that patient was walking down statements stairs and then fell head 1st down 4 stairs, they report positive loss of consciousness for proximally 2 minutes patient denies any significant pain at this time but endorses that in fact he fell. Patient states he has been consuming alcohol today. Related Data Previous Rx's Medication Instructions Recorded amoxicillin 875 mg-potassium 1 tab PO BID #20 tabs 08/31/22 clavulanate 125 mg tablet folic acid 1 mg tablet 1 mg PO DAILY #30 tabs 08/31/22 prednisone 10 mg tablet See Rx Instructions .Route 08/31/22 .COMPLEX #45 tabs cephalexin 500 mg capsule 500 mg PO Q6H 7 days #28 caps 01/11/23 doxycycline hyclate 100 mg tablet 100 mg PO BID 7 days #14 tabs 01/11/23 Allergies Allergy/AdvReac Type Severity Reaction Status Date / Time clams Allergy Severe HIVES, Verified 05/05/23 12:04 DIFFICULTY BREATHING Review of Systems 2 Review of Systems: Pertinent positives and negatives as stated in HPI PMFSH Past Medical History Source: nursing notes reviewed Medical History High cholesterol HTN (hypertension) ETOH abuse Social History Social History Household Members: None Housing: Homeless Do you presently have visiting nurse or other home services: No Alcohol intake: current Alcohol intake frequency: 3 or more drinks per day Alcohol type: beer Patient Tobacco Use Status: Never used Tobacco Smoked in Last 30 Days: Yes Use of substances other than those prescribed or required for medical reasons: No Advance Directives: No Advance Directives Information Provided: No service: No Current occupational status: unemployed Physical Exam 2 Vital Signs: Vital Signs: Last Vital Signs Temp 98.0 F 05/13/23 23:21 Pulse 94 05/13/23 23:21 Resp 18 05/13/23 23:21 BP 101/71 05/13/23 23:21 Pulse Ox 97 05/13/23 23:21 O2 Del Method Room Air 05/13/23 23:21 BMI result Body Mass Index 26.3 VITAL SIGNS: Reviewed. GENERAL: Well developed, well nourished, in no acute distress. HEAD: Normocephalic/atraumatic EYES: PERRLA, EOMI EARS: Ext canals without abnormality NOSE: Nares patent bilateral OROPHARYNX: no oral lesions noted, posterior pharynx clear NECK: Supple, no adenopathy LUNGS: Normal breath sounds. No adventitious sounds or accessory muscle use. SpO2<97> CARDIOVASCULAR: Regular rate and rhythm without noted murmurs ABDOMEN: Soft, non-tender, non-distended with bowel sounds. MUSCULOSKELETAL: No tenderness, deformities, or effusions noted on gross inspection. EXTREMITIES: No cyanosis, clubbing or edema. SKIN: Inspection of the skin reveals no rashes NEUROLOGIC: Alert and oriented x 3. Strength and sensation to light touch were grossly intact x 4, cranial nerves 2-12 are grossly intact. Medical Decision Making Medical Decision Making [facility] Narrative: 53-year-old male with history and clinical presentation of alcohol abuse disorder, patient is following many times and will rule out intracranial hemorrhage or neck fracture/subluxation. I reviewed all investigations and hematologic indices are negative for leukocytosis or left shift, there is no anemia or thrombocytopenia. Coagulation studies are within normal limits. Chemistry indices are grossly within normal limits, there is no YEE there are no electrolyte or liver enzymes arrangements. BAL-246 and will observe for 6 hours. Patient does report wanting to undergo a rehab facility and will place consult for investment recovery technician assistance. Viral testing is negative for influenza/RSV/COVID. CT of the head is negative for intracranial hemorrhage or mass effect, cervical spine does not demonstrate any fracture or subluxation. Patient is otherwise medically cleared for further evaluation by the care team. Patient placed in physician observation because the patient needed more time for evaluation by the investment recovery technician. At the time observation was started the patient's vital signs were stable, patient is alert and oriented but, neuro: Nonfocal, CV RRR, lungs clear Differential Diagnosis Differential Diagnoses: The differential diagnosis associated with the presentation includes Please see the discussion above Admission/Observation Consideration of admission/observation: Escalation of care including admission/observation considered Please see the discussion above Lab Data [facility] Lab Attestation statement: I reviewed the patient's lab results. Please see the discussion above 05/13/23 22:04 05/13/23 22:04 Labs: Lab Results 05/13/23 05/13/23 Range/Units 20:52 22:04 WBC 5.7 (4.8-10.8) X10*3/uL RBC 4.75 (4.60-5.80) X10*6/uL Hgb 14.3 (14.0-18.0) g/dl Hct 42.8 (42.0-52.0) % MCV 90.1 (80.0-98.0) fL MCH 30.1 (27.0-33.0) pg MCHC 33.4 (31.0-36.0) g/dl RDW 13.5 (11.0-16.0) % Plt Count 112 L (160-400) X10*3/uL MPV 11.7 (9.4-12.4) fL Immature Gran % (Auto) 0.3 (0.0-0.4) % Neut % (Auto) 70.0 (45-73) % Lymph % (Auto) 12.6 L (20-40) % [place] % (Auto) 13.8 H (2-11) % Eos % (Auto) 3.0 (0-4) % Baso % (Auto) 0.3 (0-2) % Lymph # (Auto) 0.7 L (1.2-4.9) X10*3/uL [place] # (Auto) 0.8 (0.1-1.2) X10*3/uL Eos # (Auto) 0.2 (0.0-0.4) X10*3/uL Baso # (Auto) 0.0 (0.0-0.2) X10*3/uL Abs Immat Gran (auto) 0.02 (0.00-0.03) X10*3/uL Absolute Neuts (auto) 4.0 (2.0-8.3) x10*3/uL Absolute Nucleated RBC 0.000 (0.0-0.012) X10*3/uL Nucleated RBC % (auto) 0.0 (0.0-0.2) /100WBC PT 11.9 (11.1-13.3) SEC INR 1.0 (0.9-1.1) Sodium 144 (135-145) mmol/L Potassium 3.7 (3.3-5.1) mmol/L Chloride 112 H (96-108) mmol/L Carbon Dioxide 21 L (22-29) mmol/L Anion Gap 15 (12-20) BUN 13 (9-16) mg/dL Creatinine 0.77 (0.5-1.4) mg/dL Estim Creat Clear Calc 100.1 Estimated GFR > 60 Random Glucose 99 (60-115) mg/dL Calcium 8.5 (8.4-10.2) mg/dL Total Bilirubin 0.3 (0.0-1.0) mg/dL AST 41 H (5-37) U/L ALT 38 (0-40) U/L Alkaline Phosphatase 52 (39-117) U/L Total Protein 6.9 (6.5-8.0) g/dL Albumin 3.8 (3.5-5.0) g/dL Ethyl Alcohol 246 mg/dL Influenza Type A (PCR) NEGATIVE (Negative) Influenza Type B (PCR) NEGATIVE (Negative) RSV RNA Qual (PCR) NEGATIVE (Negative) SARS-CoV-2 RNA (RT-PCR) NEGATIVE (Negative) Radiology Impression Discussion of test interpretation with radiology: I have reviewed the radiologist's reading. Radiologist Impression: Please see the discussion above External Record Review External record reviewed: Outpatient record, Prior outpatient labs and Prior outpatient radiology Critical Care Time Critical Care Time Critical Care Time: Yes Total Critical Care Time: 30 Attestation: I personally attest to this time spent taking care of the patient. Discharge Plan Discharge Clinical Impression: ETOH abuse, Alcohol intoxication, Frequent falls Patient Disposition: Still a Patient Prescriptions: No Action folic acid 1 mg Tablet 1 mg PO DAILY Qty: 30 0RF amoxicillin-pot clavulanate 875-125 mg tablet 1 tab PO BID Qty: 20 0RF prednisone 10 mg tablet See Rx Instructions .Route .COMPLEX Qty: 45 0RF Rx Instructions: 10 mg orally; 5 tabs p.o. daily x3 days; 4 tabs p.o. daily x3 days; 3 tabs daily x3 days; 2 tabs daily x3 days; 1 tab daily x3 days cephalexin 500 mg capsule 500 mg PO Q6H 7 Days Qty: 28 0RF doxycycline hyclate 100 mg tablet 100 mg PO BID 7 Days Qty: 14 0RF
[2023-05-14 01:40] VITALS: BP 108/72; PULSE 64; RESP 18; TEMP 36.6; O2SAT 98
--- NOTE | 2023-05-14 01:41 | MHC.EDTECH ---
Hourly rounds and vitals completed, patient is sleeping at this time and call souza is within reach.
[2023-05-14 04:15] VITALS: BP 126/80; PULSE 60; RESP 18; TEMP 36.5; O2SAT 97
--- NOTE | 2023-05-14 04:16 | MHC.EDTECH ---
Hourly rounds and vitals completed, patient is sleeping at this time and call souza is within reach.
--- NOTE | 2023-05-14 04:36 | PC.NURSE ---
Assumed care of pt. Pt lying on stretcher, eyes closed, respirations even and unlabored. No acute distress at this time.
[2023-05-14 06:16] VITALS: BP 118/79; PULSE 68; RESP 18; O2SAT 99
--- NOTE | 2023-05-14 06:29 | MHC.EDTECH ---
Hourly rounds and vitals completed, Patient was incont. of a large amount of urine, patient was cleaned and bed linen was changed and lurdes-care given. Stood patient up to attempt to get a urine sample patient was unable to go at this time. RN aware
--- NOTE | 2023-05-14 07:35 | PC.NURSE ---
Pt awake, watching tv, resting quietly. Req detox services. Denies SI or HI. Denies pain. No n/v/tremors, headache. Skin flushed. Speaking full sentences breakfast ordered.
[2023-05-14 10:46] VITALS: BP 148/92; PULSE 94; RESP 14; O2SAT 98
[2023-05-14 11:07] LABS: Appearance Urine Clear; Color Urine Yellow; Glucose Urine UA Negative (Negative); Leukocyte Esterase Urine Negative (Negative); Nitrite Urine Negative (Negative); PH 5.5 (5.0-9.0); Specific Gravity - Urine 1.015 (1.005-1.025); Urine Blood Negative (Negative); Urine Ketones Negative (Negative); Urine Protein Negative (Neg-Trace)
--- NOTE | 2023-05-14 11:14 | MHC.RECOVRN ---
Addendum entered by Teja Govea 05/15/23 12:06: No ATS available for pt at this time. Pt recommended to follow up from the community for CSS. Addendum entered by Teja Govea 05/15/23 10:50: Pt will have a walker to go to ATS with. bed search in process. Original Note: Pt brought to ED via EMS S/P fall with head strike. Pt's UTOX positive for ETOH and he is requesting detox. Pt sitting in bed awake and alert and easily engages in conversation. Does not appear to be in W/D. Pt reports he is currently drinking 4 tall boys and a pint of vodka a day. He is unstably housed. Discussion had re: treatment options available following ATS and patient voices wanting to go to a assisted and await his brother picking him up after [place] to bring him [place]. Patient denies h/o inpt. tx after ATS. Pt is currently unable to ambulate independently so PT consult requested. Awaiting consult.
--- NOTE | 2023-05-14 12:38 | PC.NURSE ---
Assumed care of patient at 1230. Patient is resting comfortably on stretcher in 6H, offers no complaints at this time, respirations even and unlabored, skin pwd, no apparent distress. awaiting placement at [facility]
[2023-05-14 14:30] VITALS: PULSE 88; RESP 16; O2SAT 97
[2023-05-14 22:25] VITALS: BP 149/52; PULSE 65; O2SAT 96
--- NOTE | 2023-05-14 23:21 | PC.NURSE ---
assumed care of pt
[2023-05-15 06:16] VITALS: BP 162/79; PULSE 74; RESP 17; TEMP 37.1; O2SAT 98
--- NOTE | 2023-05-15 06:28 | PC.NURSE ---
pt denies taking any daily medications at this time
--- NOTE | 2023-05-15 07:20 | PC.NURSE ---
pt set up with his breakfast mary alice
[2023-05-15 08:09] VITALS: BP 145/96; PULSE 71; RESP 16; TEMP 35.8; O2SAT 96
--- NOTE | 2023-05-15 08:29 | PC.NURSE ---
Addendum entered by Mounika Zimmer 05/15/23 11:08: pt is interested in going into detox Original Note: pt is alert and oriented, skin slightly flushed in color, pt denies pain at this time, no visible tremor, no headache/nausea, ate all his breakfast. denies si/hi pt at bedside for evaluation
--- NOTE | 2023-05-15 08:37 | PHA.MEDREC ---
Pharmacy Consult ? Medication Reconciliation Pharmacy has completed the medication reconciliation.PHARMACY STATES HE WAS IN [facility] SEVERAL DAYS AGO AND THEY PUT HIM ON SOME VITAMINS BUT HE DOESN'T REMEMBER WHAT THEY ARE. NOTHING SHOWED UP ON CLAIM HISTORY.
[2023-05-15 12:02] VITALS: BP 168/104; PULSE 62; RESP 14; O2SAT 99
== END 2023-05-15 13:55 | disposition home or self-care (01) ==
PROVIDERS: Emergency Provider Student in an Organized Health Care Education/Training Program
DX: F10.120 Alcohol abuse with intoxication, uncomplicated (principal); Y90.8 Blood alcohol level of 240 mg/100 ml or more; R29.6 Repeated falls; Z79.899 Other long term (current) drug therapy; I10 Essential (primary) hypertension; E78.5 Hyperlipidemia, unspecified; Z20.822 Contact with and (suspected) exposure to COVID-19; Z20.828 Contact with and (suspected) exposure to other viral communicable diseases
CPT/HCPCS: 0241U; 36415; 70450; 72125; 80053; 80307; 81003; 85025; 85610; 97161; 99285

== ENCOUNTER 2023-05-27 14:25 | Emergency (ER) | payer MEDICAID, SELFPAY ==
--- NOTE | ~2023-05-27 | CT_ITS ---
EXAMINATION: CT HEAD WITHOUT CONTRAST, CT CERVICAL SPINE WITHOUT CONTRAST CLINICAL INFORMATION: Trauma. COMPARISON: Portions of previous study 05/13/23 TECHNIQUE: Multidetector CT examination of the head is performed without contrast. Multidetector CT of the cervical spine without contrast. Multiplanar postprocessing This CT examination was performed using dose optimization techniques as appropriate, variously including the following: *Automated exposure control *Adjustment of mA and/or kV according to patient size (this includes techniques or standardized protocols for targeted exams where dose is matched to indication/reason for exam; i.e. extremities or head) *Use of iterative reconstruction technique DLP: 971 mGy-cm FINDINGS: Head CT: There is no evidence of a recent intracranial hemorrhage or extra-axial collection. The midline structures are nondisplaced. The ventricles, and sulci are within normal limits. Stable prominence of the extra-axial spaces in the posterior fossa. There is no evidence of an intra-axial mass. There are no suspicious focal areas of abnormal brain attenuation. The yao-white interface is within normal limits. There is no evidence of acute territorial infarct. There is [id number] thickening in the right maxillary sinus without fluid level. This has improved. No fracture demonstrated Cervical CT: No fracture or subluxation. No loss of volume. No suspicious abnormality of visualized apex of the chest CT/CT head/brain wo IV con IMPRESSION: 1. There is no evidence of a recent intracranial hemorrhage. 2. No acute infarct. 3. No acute fracture or subluxation of the cervical spine No suspicious interval change
--- NOTE | ~2023-05-27 | CT_ITS ---
EXAMINATION: CT HEAD WITHOUT CONTRAST, CT CERVICAL SPINE WITHOUT CONTRAST CLINICAL INFORMATION: Trauma. COMPARISON: Portions of previous study 05/13/23 TECHNIQUE: Multidetector CT examination of the head is performed without contrast. Multidetector CT of the cervical spine without contrast. Multiplanar postprocessing This CT examination was performed using dose optimization techniques as appropriate, variously including the following: *Automated exposure control *Adjustment of mA and/or kV according to patient size (this includes techniques or standardized protocols for targeted exams where dose is matched to indication/reason for exam; i.e. extremities or head) *Use of iterative reconstruction technique DLP: 971 mGy-cm FINDINGS: Head CT: There is no evidence of a recent intracranial hemorrhage or extra-axial collection. The midline structures are nondisplaced. The ventricles, and sulci are within normal limits. Stable prominence of the extra-axial spaces in the posterior fossa. There is no evidence of an intra-axial mass. There are no suspicious focal areas of abnormal brain attenuation. The yao-white interface is within normal limits. There is no evidence of acute territorial infarct. There is [id number] thickening in the right maxillary sinus without fluid level. This has improved. No fracture demonstrated Cervical CT: No fracture or subluxation. No loss of volume. No suspicious abnormality of visualized apex of the chest CT/CT cervical spine wo IV con IMPRESSION: 1. There is no evidence of a recent intracranial hemorrhage. 2. No acute infarct. 3. No acute fracture or subluxation of the cervical spine No suspicious interval change
[2023-05-27 14:33] VITALS: BP 134/78; PULSE 74; O2SAT 98
[2023-05-27 14:52] VITALS: BP 134/76; PULSE 74; RESP 19; TEMP 36.6; O2SAT 96; BMI 25.8
--- NOTE | 2023-05-27 15:54 | PC.NURSE ---
this nurse took report from isaiah, took over patient care at 3pm, patient currently sleeping, wakes to verbal stimulus, pt currently awaiting provider
--- NOTE | 2023-05-27 16:10 | ED_ITS ---
HPI - General Adult General Chief complaint: ETOH/Substance Use Stated complaint: FELL DUE TO DRINKING Time Seen by Provider: 05/27/23 16:01 Source: patient, EMS and RN notes reviewed Mode of arrival: EMS Limitations: other (Acute alcohol intoxication) History of Present Illness HPI narrative: 53-year-old male past medical history significant for presents for evaluation after a fall. Patient reports that he was drinking heavily today which he does every day He drinks approximately 3 tall boy beers and a pt of liquor daily Patient's last drink was just to arrival Patient reports that he fell today He states that he lost his balance due to the alcohol consumption and hit the back of his head Denies any loss of consciousness Denies any other injuries He is interested in detox No other complaints or concerns at this time Related Data Home Medications Medication Instructions Recorded Confirmed No Known Home Meds 05/15/23 05/15/23 Allergies Allergy/AdvReac Type Severity Reaction Status Date / Time clams Allergy Severe HIVES, Verified 05/05/23 12:04 DIFFICULTY BREATHING Review of Systems 2 Constitutional: Constitutional: Denies chills, Denies fever(s) and Reports headache(s) Eyes: Eyes: Denies blurry vision ENT: Reports headache(s) Cardiovascular: Cardiovascular: Denies chest pain and Denies dyspnea Respiratory: Respiratory: Denies cough and Denies dyspnea Gastrointestinal: Gastrointestinal: Denies abdominal pain, Denies nausea and Denies vomiting Musculoskeletal: Musculoskeletal: Denies back pain Integumentary/Breasts: Skin/Breast: Denies rash Neurologic: Reports headache(s) PMFSH Past Medical History Medical History High cholesterol HTN (hypertension) ETOH abuse Social History Social History Household Members: None Housing: Homeless Do you presently have visiting nurse or other home services: No Alcohol intake: current Alcohol intake frequency: 3 or more drinks per day Alcohol type: beer Patient Tobacco Use Status: Never used Tobacco Smoked in Last 30 Days: No Use of substances other than those prescribed or required for medical reasons: No Advance Directives: No service: No Current occupational status: unemployed Physical Exam ED Vital Signs: Vital Signs - 24 hr 05/27/23 14:52 05/27/23 18:00 Temperature 98 F 97.8 F Pulse Rate 74 78 Respiratory Rate 19 18 Blood Pressure 134/76 131/82 Pulse Oximetry 96 96 Oxygen Delivery Method Room Air Room Air BMI result Body Mass Index 25.8 Const General: healthy appearing, comfortable, no acute distress, alert and awake Nutritional Appearance: well nourished Orientation/consciousness: patient oriented x3 HENMT Other: No abrasions, wounds, hematoma to the posterior scalp in the area where the patient indicates he struck his head Head: Yes normocephalic and Yes atraumatic Eyes Eyelids: Yes eyelids normal Conjunctivae: conjunctivae normal Sclerae: sclerae normal Corneas: corneas normal Pupils: Equal, round and reactive pupils present EOM: EOMs intact bilaterally Neck Neck: Yes full ROM Resp Effort & Inspection: normal respiratory effort, able to speak in complete sentences and not labored Cardio Rate: regular rate Rhythm: regular rhythm GI Inspection: No distended Palpation (GI): Soft to palpation, not firm, nontender, no guarding and not rigid Back/Spine/Pelvis Other: No C-spine tenderness Skin General skin exam: no rashes or lesions noted and elasticity normal Neuro General: patient oriented x3 Cranial nerves: Yes Equal, round and reactive pupils present and Yes Bilaterally intact EOM present Cognition (Neuro): normal cognition Extrem Other: Moving all extremities well without any obvious deformities Course Reevaluation(s) Reevaluation #1: The patient's workup largely unremarkable better discuss that care team, for to there are no detox beds available. The patient will be discharged with detox resources. I discussed this with the patient. Time: 18:38 Medical Decision Making Medical Decision Making MDM Narrative: 53-year-old male presents for evaluation after a fall while drinking alcohol. He is seeking detox. He will get basic labs ETOH level, will CT scan his brain and cervical spine due to the fall. Patient has no objective findings of trauma or additional injuries. Further workup as indicated Differential Diagnosis Differential Diagnoses: The differential diagnosis associated with the presentation includes Alcohol abuse Syncope Mechanical fall Intracranial hemorrhage Concussion Contusion Lab Data 05/27/23 16:30 05/27/23 16:30 Labs: Lab Results 05/27/23 05/27/23 05/27/23 Range/Units 16:30 16:30 16:30 WBC 3.8 L (4.8-10.8) X10*3/uL RBC 4.95 (4.60-5.80) X10*6/uL Hgb 15.0 (14.0-18.0) g/dl Hct 45.0 (42.0-52.0) % MCV 90.9 (80.0-98.0) fL MCH 30.3 (27.0-33.0) pg MCHC 33.3 (31.0-36.0) g/dl RDW 13.9 (11.0-16.0) % Plt Count 97 L (160-400) X10*3/uL MPV 12.1 (9.4-12.4) fL Absolute Nucleated RBC 0.000 (0.0-0.012) X10*3/uL Nucleated RBC % (auto) 0.0 (0.0-0.2) /100WBC Sodium 144 (135-145) mmol/L Potassium 3.8 (3.3-5.1) mmol/L Chloride 112 H (96-108) mmol/L Carbon Dioxide 22 (22-29) mmol/L Anion Gap 14 (12-20) BUN 14 (9-16) mg/dL Creatinine 0.79 (0.5-1.4) mg/dL Estim Creat Clear Calc 111.6 Estimated GFR > 60 Random Glucose 81 (60-115) mg/dL Calcium 8.5 (8.4-10.2) mg/dL Total Bilirubin 0.4 Cancelled (0.0-1.0) mg/dL Direct Bilirubin 0.1 Cancelled (0.0-0.5) mg/dL AST 36 (5-37) U/L ALT (0-40) U/L Alkaline Phosphatase (39-117) U/L Total Protein (6.5-8.0) g/dL Albumin (3.5-5.0) g/dL Lipase (8-78) U/L Ethyl Alcohol mg/dL 05/27/23 05/27/23 05/27/23 Range/Units 16:30 16:30 16:30 WBC (4.8-10.8) X10*3/uL RBC (4.60-5.80) X10*6/uL Hgb (14.0-18.0) g/dl Hct (42.0-52.0) % MCV (80.0-98.0) fL MCH (27.0-33.0) pg MCHC (31.0-36.0) g/dl RDW (11.0-16.0) % Plt Count (160-400) X10*3/uL MPV (9.4-12.4) fL Absolute Nucleated RBC (0.0-0.012) X10*3/uL Nucleated RBC % (auto) (0.0-0.2) /100WBC Sodium (135-145) mmol/L Potassium (3.3-5.1) mmol/L Chloride (96-108) mmol/L Carbon Dioxide (22-29) mmol/L Anion Gap (12-20) BUN (9-16) mg/dL Creatinine (0.5-1.4) mg/dL Estim Creat Clear Calc Estimated GFR Random Glucose (60-115) mg/dL Calcium (8.4-10.2) mg/dL Total Bilirubin (0.0-1.0) mg/dL Direct Bilirubin (0.0-0.5) mg/dL AST Cancelled (5-37) U/L ALT 31 Cancelled (0-40) U/L Alkaline Phosphatase 58 Cancelled (39-117) U/L Total Protein 7.5 (6.5-8.0) g/dL Albumin (3.5-5.0) g/dL Lipase (8-78) U/L Ethyl Alcohol mg/dL 05/27/23 05/27/23 05/27/23 Range/Units 16:30 16:30 16:30 WBC (4.8-10.8) X10*3/uL RBC (4.60-5.80) X10*6/uL Hgb (14.0-18.0) g/dl Hct (42.0-52.0) % MCV (80.0-98.0) fL MCH (27.0-33.0) pg MCHC (31.0-36.0) g/dl RDW (11.0-16.0) % Plt Count (160-400) X10*3/uL MPV (9.4-12.4) fL Absolute Nucleated RBC (0.0-0.012) X10*3/uL Nucleated RBC % (auto) (0.0-0.2) /100WBC Sodium (135-145) mmol/L Potassium (3.3-5.1) mmol/L Chloride (96-108) mmol/L Carbon Dioxide (22-29) mmol/L Anion Gap (12-20) BUN (9-16) mg/dL Creatinine (0.5-1.4) mg/dL Estim Creat Clear Calc Estimated GFR Random Glucose (60-115) mg/dL Calcium (8.4-10.2) mg/dL Total Bilirubin (0.0-1.0) mg/dL Direct Bilirubin (0.0-0.5) mg/dL AST (5-37) U/L ALT (0-40) U/L Alkaline Phosphatase (39-117) U/L Total Protein Cancelled (6.5-8.0) g/dL Albumin 4.0 Cancelled (3.5-5.0) g/dL Lipase 70 Cancelled (8-78) U/L Ethyl Alcohol 187 mg/dL Discharge Plan Discharge Clinical Impression: ETOH abuse, Fall Patient Disposition: Home, Self-Care Instructions: Abuse of Alcohol (ED) Additional Instructions: Unfortunately there are no detox beds available tonight. Your provided a list of detox facilities/resources. You may call it herself or present 1st thing in the morning to attempt to get a detox bed Prescriptions: No Action No Known Home Meds
[2023-05-27 16:37] LABS: Mean Corpuscular HGB Conc 33.3 g/dl (31.0-36.0); Mean Corpuscular Hemoglobin 30.3 pg (27.0-33.0); Mean Corpuscular Volume 90.9 fL (80.0-98.0); Mean Platelet Volume 12.1 fL (9.4-12.4); Red Blood Count 4.95 X10*6/uL (4.60-5.80); Red Cell Distribution Width 13.9 % (11.0-16.0); White Blood Count 3.8 X10*3/uL (4.8-10.8)
[2023-05-27 16:40] LABS: Platelet Count 97 X10*3/uL (160-400)
[2023-05-27 16:55] LABS: Alanine Aminotransferase 31 U/L (0-40); Alkaline Phosphatase 58 U/L (39-117); Anion Gap 14 (12-20); Aspartate Amino Transferase 36 U/L (5-37); Bilirubin Direct 0.1 mg/dL (0.0-0.5); Bilirubin Total 0.4 mg/dL (0.0-1.0); Blood Urea Nitrogen 14 mg/dL (9-16); Calcium 8.5 mg/dL (8.4-10.2); Carbon Dioxide 22 mmol/L (22-29); Chloride 112 mmol/L (96-108); Creatinine Clr Calc Pharmacy 111.6; Estimated Glomerular Filt Rate > 60; Ethanol 187 mg/dL; Glucose Random 81 mg/dL (60-115); Lipase 70 U/L (8-78); Potassium 3.8 mmol/L (3.3-5.1); Sodium 144 mmol/L (135-145); Total Protein 7.5 g/dL (6.5-8.0)
[2023-05-27 18:00] VITALS: BP 131/82; PULSE 78; RESP 18; TEMP 36.6; O2SAT 96
--- NOTE | 2023-05-27 20:11 | PC.NURSE ---
ambulated with steady gait
== END 2023-05-27 20:14 | disposition home or self-care (01) ==
PROVIDERS: Emergency Provider Internal Medicine
DX: F10.10 Alcohol abuse, uncomplicated (principal); Y90.6 Blood alcohol level of 120-199 mg/100 ml; Z91.81 History of falling; R51.9 Headache, unspecified; I10 Essential (primary) hypertension; E78.5 Hyperlipidemia, unspecified
CPT/HCPCS: 70450; 72125; 80048; 80076; 80307; 83690; 85027; 99284

== ENCOUNTER 2023-06-01 14:54 | Emergency (ER) | payer MEDICAID, SELFPAY ==
--- NOTE | ~2023-06-01 | CT_ITS ---
EXAMINATION: CT HEAD WITHOUT CONTRAST CLINICAL INFORMATION: Headache status-post fall. COMPARISON: CT head dated 05/27/2023. TECHNIQUE: Contiguous axial imaging was performed from the skull base to vertex without intravenous administration of contrast. Multiplanar reformatted images are submitted. This CT examination was performed using dose optimization techniques as appropriate, variously including the following: *Automated exposure control *Adjustment of mA and/or kV according to patient size (this includes techniques or standardized protocols for targeted exams where dose is matched to indication/reason for exam; i.e. extremities or head) *Use of iterative reconstruction technique DLP: 1068 mGy-cm (head and cervical spine) FINDINGS: There is no acute intracranial hemorrhage or evidence of territorial infarction. No abnormal mass effect or midline shift is seen. Lemus to white matter differentiation is well preserved. There is no abnormal attenuation within the brain parenchyma. The ventricles are normal in size. A jacklyn cisterna magna is redemonstrated. No extra-axial fluid collections are identified. The calvarium and scalp soft tissues are normal. The middle ear cavity and mastoid air cells are clear. The visualized paranasal sinuses are clear. There is mild right maxillary sinusitis. CT/CT cervical spine wo IV con IMPRESSION: No acute intracranial pathology. EXAMINATION: CT CERVICAL SPINE WITHOUT CONTRAST CLINICAL INFORMATION: Neck pain status-post fall. COMPARISON: CT cervical spine dated 05/27/2023. TECHNIQUE: Contiguous axial imaging was performed through the cervical spine without intravenous administration of contrast. Multiplanar reformatted images are submitted. This CT examination was performed using dose optimization techniques as appropriate, variously including the following: *Automated exposure control *Adjustment of mA and/or kV according to patient size (this includes techniques or standardized protocols for targeted exams where dose is matched to indication/reason for exam; i.e. extremities or head) *Use of iterative reconstruction technique DLP: As above FINDINGS: Vertebral body heights and alignment are normal. The disc spaces are well-maintained. No acute fracture or spondylolisthesis is seen. The posterior elements are intact. There is no prevertebral soft tissue swelling. The dens is intact. The bilateral lung apices are clear. IMPRESSION: Unremarkable examination. Fleischner guidelines were followed.
[2023-06-01 15:33] VITALS: BP 106/74; BP 98/46; PULSE 70; PULSE 78; RESP 20; TEMP 36.8; O2SAT 95; O2SAT 98; BMI 24.4
--- NOTE | 2023-06-01 15:45 | ED_ITS ---
HPI - General Adult General Chief complaint: ETOH/Substance Use Stated complaint: ETOH REQUESTING DETOX Time Seen by Provider: 06/01/23 15:44 Source: patient Mode of arrival: ambulatory Limitations: no limitations History of Present Illness HPI narrative: Patient is a 53-year-old male with history of alcohol use disorder presenting to the emergency department requesting detox from alcohol. Denies other drug use. Denies any physical complaints. Denies recent falls or other trauma. Denies history of withdrawal seizures. States he typically drinks 1 pint of vodka daily, last drank 1 hour prior to arrival. complaint: seeking detox Associated symptoms: denies other symptoms Treatments prior to arrival: none Related Data Home Medications Medication Instructions Recorded Confirmed No Known Home Meds 05/15/23 05/15/23 Allergies Allergy/AdvReac Type Severity Reaction Status Date / Time clams Allergy Severe HIVES, Verified 06/01/23 15:35 DIFFICULTY BREATHING Review of Systems 2 Review of Systems: As per HPI. Yes all other systems are reviewed and are negative Constitutional: Constitutional: Reports as per HPI PMFSH Past Medical History Medical History High cholesterol HTN (hypertension) ETOH abuse Social History Social History Household Members: None Housing: Homeless Do you presently have visiting nurse or other home services: No Alcohol intake: current Alcohol intake frequency: 3 or more drinks per day Alcohol type: beer Patient Tobacco Use Status: Never used Tobacco Smoked in Last 30 Days: Yes Use of substances other than those prescribed or required for medical reasons: No Advance Directives: No Advance Directives Information Provided: No service: No Current occupational status: unemployed Physical Exam ED Vital Signs: Vital Signs - 24 hr 06/01/23 15:33 06/01/23 19:52 Temperature 98.2 F 98.3 F Pulse Rate 78 63 Respiratory Rate 20 17 Blood Pressure 98/46 L 100/56 L Pulse Oximetry 95 96 Oxygen Delivery Method Room Air Room Air BMI result Body Mass Index 24.4 Vital signs have been reviewed and appear to be correct. Blood pressure normal. Heart rate normal. Respiratory rate normal. Temperature normal. Oxygen saturation normal. Const General: cooperative and no acute distress Orientation/consciousness: oriented to person, oriented to place, oriented to time and patient oriented x3 Limitations: no limitations HENMT Head: Yes normocephalic and Yes atraumatic Ears: external ears normal General nose exam: Normal external nose present Face and sinus: Yes face symmetric Mouth: oropharynx normal and moist mucous membranes Throat: Yes uvula midline Eyes Pupils: Equal, round and reactive pupils present Neck Neck: Yes normal visual inspection and Yes supple Resp Effort & Inspection: normal respiratory effort and able to speak in complete sentences Auscultation: clear to auscultation bilaterally Cardio Rate: regular rate Rhythm: regular rhythm Heart sounds: S1 normal heart sound present and S2 normal heart sound present GI Palpation (GI): Soft to palpation and nontender Auscultation: normoactive bowel sounds General: Yes no CVA tenderness Back/Spine/Pelvis Back: no CVA tenderness Skin Other: face flushed General skin exam: elasticity normal and turgor normal Neuro General: oriented to person, oriented to place, oriented to time, patient oriented x3, moves all extremities, no focal motor deficits and CN's II-XI intact bilaterally Cranial nerves: Yes Equal, round and reactive pupils present Cognition (Neuro): normal cognition Extrem General: Yes full ROM, Yes no pedal edema and Yes no calf tenderness Psych Mental Status: mental status grossly normal Affect: normal affect Thought process: Normal thought process present Course Reevaluation(s) Reevaluation #1: Patient reporting to RN that he fell backwards hitting the back of his head prior to arrival. Patient denied this initially. CT head and C-spine ordered. Time: 20:07 Reevaluation #2: CT head and C-spine unremarkable My interpretation is in agreement with the radiologist's interpretation. Feel patient is medically cleared at this time, will place on physician observation pending PT evaluation. Time: 22:47 Medical Decision Making Medical Decision Making [facility] Narrative: Patient is a 53-year-old male with history of alcohol use disorder presenting to the emergency department requesting detox from alcohol. On exam patient is awake, A+Ox3, VS WNL, afebrile,physical exam findings as above. Given reported symptoms and physical exam findings, initial differential includes alcohol use disorder, alcohol dependence, alcohol intoxication. Labs unremarkable, ETOH 174. No evidence of infection on UA. Will order PT eval as patient ambulates with a walker to assess safety for going to detox. Addiction medicine consult placed. Differential Diagnosis Differential Diagnoses: The differential diagnosis associated with the presentation includes As per MDM. Lab Data [facility] Lab Attestation statement: I reviewed the patient's lab results. As per MDM. 06/01/23 18:19 06/01/23 18:19 Labs: Lab Results 06/01/23 06/01/23 Range/Units 18:17 18:19 WBC 4.3 L (4.8-10.8) X10*3/uL RBC 4.83 (4.60-5.80) X10*6/uL Hgb 14.9 (14.0-18.0) g/dl Hct 44.1 (42.0-52.0) % MCV 91.3 (80.0-98.0) fL MCH 30.8 (27.0-33.0) pg MCHC 33.8 (31.0-36.0) g/dl RDW 13.6 (11.0-16.0) % Plt Count 113 L (160-400) X10*3/uL MPV 11.9 (9.4-12.4) fL Immature Gran % (Auto) 0.2 (0.0-0.4) % Neut % (Auto) 61.6 (45-73) % Lymph % (Auto) 20.7 (20-40) % [place] % (Auto) 12.3 H (2-11) % Eos % (Auto) 4.7 H (0-4) % Baso % (Auto) 0.5 (0-2) % Lymph # (Auto) 0.9 L (1.2-4.9) X10*3/uL [place] # (Auto) 0.5 (0.1-1.2) X10*3/uL Eos # (Auto) 0.2 (0.0-0.4) X10*3/uL Baso # (Auto) 0.0 (0.0-0.2) X10*3/uL Abs Immat Gran (auto) 0.01 (0.00-0.03) X10*3/uL Absolute Neuts (auto) 2.7 (2.0-8.3) x10*3/uL Absolute Nucleated RBC 0.000 (0.0-0.012) X10*3/uL Nucleated RBC % (auto) 0.0 (0.0-0.2) /100WBC Sodium 144 (135-145) mmol/L Potassium 3.6 (3.3-5.1) mmol/L Chloride 109 H (96-108) mmol/L Carbon Dioxide 25 (22-29) mmol/L Anion Gap 14 (12-20) BUN 24 H (9-16) mg/dL Creatinine 0.86 (0.5-1.4) mg/dL Estim Creat Clear Calc 109.0 Estimated GFR > 60 Random Glucose 81 (60-115) mg/dL Calcium 8.6 (8.4-10.2) mg/dL Ethyl Alcohol 174 mg/dL COVID-19 (TYE) Negative (Negative) COVID-19 Clin Com See Note Independent Interpretation I performed an independent interpretation of an: CT Scan Interpretation: No acute intracranial pathology, no cervical spinal fracture Radiology Impression Discussion of test interpretation with radiology: I have reviewed the radiologist's reading. Radiologist Impression: CT/CT head/brain wo IV con IMPRESSION: No acute intracranial pathology. IMPRESSION: Unremarkable examination. External Record Review External record reviewed: Inpatient record, Office record and Outpatient record Discharge Plan Discharge Clinical Impression: Alcohol use disorder, Alcoholic intoxication Patient Disposition: Still a Patient Prescriptions: No Action No Known Home Meds
--- NOTE | 2023-06-01 16:31 | MHC.RECOVSUP ---
Addendum entered by Teja Govea 06/02/23 11:20: Pt has been seen by PT and ATS bed search in process. Original Note: Met with pt in ED19H who is here for JI. Pt informs he has been drinking about 1 pint of vodka a day with last treatment at [facility] 4 weeks ago. Pt informs he can walk and would like ATS but has a long history of not being able to ambulate without walker so a PT eval has been ordered before initiating ATS search.
[2023-06-01 18:24] LABS: MANUAL DIFF FLAG NO
[2023-06-01 18:37] LABS: Basophils Percent Auto 0.5 % (0-2); Eosinophils Absolute Auto 0.2 X10*3/uL (0.0-0.4); Eosinophils Percent Auto 4.7 % (0-4); Hematocrit 44.1 % (42.0-52.0); Hemoglobin 14.9 g/dl (14.0-18.0); Imm Gran Abs Auto 0.01 X10*3/uL (0.00-0.03); Imm Gran Pct Auto 0.2 % (0.0-0.4); Lymphocytes Absolute Auto 0.9 X10*3/uL (1.2-4.9); Lymphocytes Percent Auto 20.7 % (20-40); Mean Corpuscular HGB Conc 33.8 g/dl (31.0-36.0); Mean Corpuscular Hemoglobin 30.8 pg (27.0-33.0); Mean Corpuscular Volume 91.3 fL (80.0-98.0); Mean Platelet Volume 11.9 fL (9.4-12.4); Monocytes Absolute Auto 0.5 X10*3/uL (0.1-1.2); Monocytes Percent Auto 12.3 % (2-11); Neutrophils Absolute Auto 2.7 x10*3/uL (2.0-8.3); Neutrophils Percent Auto 61.6 % (45-73); Platelet Count 113 X10*3/uL (160-400); Red Blood Count 4.83 X10*6/uL (4.60-5.80); Red Cell Distribution Width 13.6 % (11.0-16.0); White Blood Count 4.3 X10*3/uL (4.8-10.8)
[2023-06-01 18:43] LABS: Ethanol 174 mg/dL
[2023-06-01 18:44] LABS: Anion Gap 14 (12-20); Blood Urea Nitrogen 24 mg/dL (9-16); Calcium 8.6 mg/dL (8.4-10.2); Carbon Dioxide 25 mmol/L (22-29); Chloride 109 mmol/L (96-108); Estimated Glomerular Filt Rate > 60; Glucose Random 81 mg/dL (60-115); Potassium 3.6 mmol/L (3.3-5.1); Sodium 144 mmol/L (135-145)
[2023-06-01 18:49] LABS: COVID-19 Test Negative (Negative); IDNOW Serial# BCCEAD1C
[2023-06-01 19:52] VITALS: BP 100/56; PULSE 63; RESP 17; TEMP 36.8; O2SAT 96
--- NOTE | 2023-06-01 20:10 | PC.NURSE ---
Assumed care of patient at approximately 1900. Patient A&O X4, reports drinking at a friends house and fell and hit r-posterior head. 6/10 pain. CIWA of 2. BP soft 100/56. Discussed with PA and patient denied fall previously. PA will order CT scan.
[2023-06-01 23:08] VITALS: BP 106/60; PULSE 82; RESP 17; TEMP 37.2; O2SAT 96
[2023-06-02] VITALS (7 sets, daily range): BP systolic 120–155; BP diastolic 68–96; PULSE 67–77; RESP 16–18; TEMP 36.7–37.1; O2SAT 94–98
[2023-06-02 06:57] LABS: Amphetamine Screen Urine Not Detected (Not Detect); Barbiturates, Urine Not Detected (Not Detect); Benzodiazepines Screen Urine Not Detected (Not Detect); Cannabinoid Screen Urine Not Detected (Not Detect); Cocaine Screen Urine Not Detected (Not Detect); Fentanyl, urine Not Detected (Not Detect); Opiate Screen Urine Not Detected (Not Detect); Phencyclidine Screen Urine Not Detected (Not Detect)
--- NOTE | 2023-06-02 13:04 | PHA.MEDREC ---
Pharmacy Consult ? Medication Reconciliation Pharmacy has completed the medication reconciliation. Spoke to patient, he's not on any maintenance medications, waiting for transfer to a detox center.
--- NOTE | 2023-06-02 14:06 | PC.NURSE ---
pt is alert and oriented, skin slightly flushed in the face, respirations even and unlabored, pt reports headache-but the spot that he hit his head when he fell, no signs of alcohol withdrawal at this time, vs stable. pt is requesting to go to detox
--- NOTE | 2023-06-02 16:22 | PC.NURSE ---
this RN resumed care of pt at this time. pt seems to be in no apparent distress at this time. resting on stretcher w/ eyes closed. respirations even and unlabored.
--- NOTE | 2023-06-02 16:55 | PC.NURSE ---
pt awake at this time and in no apparent distress. a&ox4. vss and up to date. updated CIWA = 2 - provider not notified at this time. pt c/o 12/03 headache where headstrike occurred. denies any other sx. no sob/wob noted. respirations remain even and unlabored. pt questioning about detox update at this time. will update pt when information is acquired.
--- NOTE | 2023-06-02 17:46 | PC.NURSE ---
this RN spoke w/ recovery support team - pt aware of plan of care at this time. continues to rest in no apparent distress.
--- NOTE | 2023-06-02 21:04 | PC.NURSE ---
this rn assumed care of pt. pt resting in stretcher comfortably at this time, pt denies pain.
--- NOTE | 2023-06-02 22:15 | PC.NURSE ---
report given to overflow nurse.
--- NOTE | 2023-06-02 22:27 | PC.NURSE ---
Patient arrived to this unit from ED via stretcher
--- NOTE | 2023-06-02 22:36 | PC.NURSE ---
Patient alert oriented,denies pain,resting in bed
--- NOTE | 2023-06-02 22:38 | MHC.EDTECH ---
Patient just came over to overflow from main emergency room ,Patient got moved to bed ,vitals taken ,ham sandwich and mateo jaja given for snack ,Patient comfortable watching television ,no apparent distress noted .
[2023-06-03 05:22] VITALS: BP 124/79; PULSE 64; RESP 16; TEMP 36.6; O2SAT 97
--- NOTE | 2023-06-03 05:24 | MHC.EDTECH ---
Patient slept all night ,vitals taken ,200 ml urine empty from urinal ,Patient drank a can of mateo jaja .
--- NOTE | 2023-06-03 11:32 | MHC.CM.ED ---
Received case management consult. Patient is well known to T/W due to frequent ER visits. Physical therapy eval completed. No skill identified. Patient does not need short term rehab. Kiana Ennis RN made aware. Case management consult deferred at this time.
[2023-06-03 14:00] VITALS: BP 144/92; PULSE 65; RESP 18; TEMP 36.8; O2SAT 97
--- NOTE | 2023-06-03 15:11 | MHC.EDTECH ---
Emptied patients urinal 400mL.
--- NOTE | 2023-06-03 15:11 | MHC.EDTECH ---
Brought patient a turkey sandwich and a mateo jaja.
[2023-06-03 16:00] VITALS: PULSE 65
[2023-06-03] MEDS: Acetaminophen 325 MG TABLET 650 MG PO (17:15)
--- NOTE | 2023-06-03 17:38 | PC.NURSE ---
Pt complaining of headache at site of where he hit his head prior to admin. Contacted provider, admin new one time order PO tylenol 650mg. Pt states some relief.
[2023-06-04 05:16] VITALS: BP 134/66; PULSE 60; RESP 16; TEMP 36.6; O2SAT 94
[2023-06-04 08:02] VITALS: BP 146/106; PULSE 66; RESP 19; TEMP 36.5; O2SAT 100
--- NOTE | 2023-06-04 09:30 | PC.NURSE ---
PT IS A/O X 4 NO SOB/ALEXANDREA NOTED SPEAKS IN FULL SENTENCES. PT C/O 12/03 POST HEADACHE. NO EDEMA NOTED. PT WILL AMB (I) GAIT STEADY TO BATHROOM AND BTB. PT TO BE SEEN BY RECOVERY TEAM. PT AWARE OF PLAN OF CARE.
--- NOTE | 2023-06-04 09:33 | MHC.EDTECH ---
patient independently ambulated to the bathroom to take a shower, tolerated well. this tech changed bed with fresh linens, and placed a recliner in room for patient to sit in.
--- NOTE | 2023-06-04 10:51 | MHC.EDTECH ---
patients clothes brought to the POD to be washed and dried
--- NOTE | 2023-06-04 10:53 | MHC.RECOVRN ---
Addendum entered and electronically signed by Kiana Murillo 06/04/23 13:13: No returned call. Provided update to ED Nurse, CARE Team, and ED Provider. Provider voiced concern for high risk of falls if discharged. She will hold off on discharging until patient has bed placement confirmed. Notified patient and provided him with community resource booklet. He is requesting assistance with obtaining a new [employer] issued cell phone- will ask recovery team to address this tomorrow. Discussed with Gloria Mckinnon APRN. Original Note: nurse aide met with patient in ED Overflow bed 7. He is sitting up in his chair. Reports feeling good as he just showered. Denies any s/s of withdrawal, but admits to having minor headache in the area where he hit his head before coming in. He took Tylenol and it feels better. Patient interested in ATS. RN contacted [facility] this AM- he is currently on the waitlist as no bed is available. Call to [facility]- spoke with Maribel in Admissions. She states the patient's insurance requires that he meet the criteria for level 4 - pmhx of seizures, unmanaged diabetes. He is also >2 days in ED therefore they cannot accept his referral. Call to [facility] x2, phone rang continuously with no answer, left voicemail requesting call back. Left voicemail at [facility] for call back. Patient is aware that he may need to be discharged and wait for an open bed elsewhere. He states he may have a place to stay with his friend or is open to local shelters.Will provide him with intermediate resources and list of local detox programs.
[2023-06-04 14:00] VITALS: BP 144/86; PULSE 61; RESP 18; TEMP 36.4; O2SAT 96
--- NOTE | 2023-06-04 15:40 | PC.NURSE ---
ALL OF THE PT'S CLOTHING THAT WERE WASHED/DRIED WERE RETURNED TO THE PT FROM THE POD BY BRAYAN BAKER.
[2023-06-04 20:23] VITALS: BP 137/98; PULSE 67; RESP 18; TEMP 36.7; O2SAT 98
--- NOTE | 2023-06-04 23:36 | MHC.EDTECH ---
This Tech resumed care for the patient @ 2300. He appears to be asleep, comfortably. All set at this time.
--- NOTE | 2023-06-05 05:47 | PC.NURSE ---
This selling underwriter assumed care of this Pt at 0300. Pt appears to be sleeping, equal non-labored respirations.
[2023-06-05 06:00] VITALS: BP 128/91; PULSE 56; RESP 17; TEMP 36.8; O2SAT 97
[2023-06-05] MEDS: Multivitamin TABLET 1 TAB PO (07:57)
[2023-06-05] MEDS: Pyridoxine HCl (Vitamin B6) 50 MG TABLET PO (07:57)
[2023-06-05] MEDS: amLODIPine Besylate 10 MG TABLET PO (07:57)
[2023-06-05 08:01] VITALS: BP 126/88; PULSE 72; RESP 16; O2SAT 96
--- NOTE | 2023-06-05 09:51 | PC.NURSE ---
assumed care of pt at 0700. pt a&o x4, pleasant, calm, and cooperative. pt took am medications per mar. consumed breakfast. vss. CIWA 1 - pt reports slight headache. pt does not appear to be in any distress. pt sts he is supposed to speak with Darrell from recovery team today? pt currently resting quietly in bed watching tv. rr even/unlabored. call [facility] within pt reach. awaiting detox bed search. plan of care ongoing.
--- NOTE | 2023-06-05 12:23 | MHC.EDTECH ---
Patient requested shower. Helped patient into shower. Independent in washing himself.
--- NOTE | 2023-06-05 13:23 | PC.NURSE ---
pt resting quietly in hospital bed, watching tv. in no apparent distress. rr even/unlabored. awaiting plan of care update.
== END 2023-06-05 15:27 | disposition still patient (30) ==
PROVIDERS: Registered Nurse Emergency; Emergency Provider Student in an Organized Health Care Education/Training Program
DX: F10.220 Alcohol dependence with intoxication, uncomplicated (principal); Y90.6 Blood alcohol level of 120-199 mg/100 ml; Z91.81 History of falling; Z11.52 Encounter for screening for COVID-19; I10 Essential (primary) hypertension; E78.5 Hyperlipidemia, unspecified; Z79.899 Other long term (current) drug therapy
CPT/HCPCS: 36415; 70450; 72125; 80048; 80307; 85025; 87635; 97161; 99285

== ENCOUNTER 2023-06-15 12:16 | Emergency (ER) | payer MEDICAID, SELFPAY ==
[2023-06-15 12:27] VITALS: BP 108/60; BP 109/73; PULSE 102; PULSE 97; RESP 20; TEMP 36.9; O2SAT 94; BMI 27.4
--- NOTE | 2023-06-15 12:50 | PC.NURSE ---
pt mei from a friends house reporting having one beer and one pint of vodka, pt is now requesting detox. pt reports being seen at [facility] multiple times for detox. pt has hx of alcohol withdraw, pt CIWA=0. pt reports having a fall 2 days ago while drinking and reports being seen at [facility], pt now reports head pain from previous fall. orders placed at this time, aware. pt ambulates well with walker, pt currently in room, calm and cooperative. security in POD to assist with pt place change roof bolter, pt belongings secured in locker 3.
[2023-06-15 13:33] LABS: MANUAL DIFF FLAG NO
[2023-06-15 13:39] LABS: Basophils Percent Auto 0.4 % (0-2); Eosinophils Absolute Auto 0.2 X10*3/uL (0.0-0.4); Eosinophils Percent Auto 3.6 % (0-4); Hematocrit 43.9 % (42.0-52.0); Hemoglobin 14.7 g/dl (14.0-18.0); Imm Gran Abs Auto 0.01 X10*3/uL (0.00-0.03); Imm Gran Pct Auto 0.2 % (0.0-0.4); Lymphocytes Absolute Auto 0.7 X10*3/uL (1.2-4.9); Lymphocytes Percent Auto 15.2 % (20-40); Mean Corpuscular HGB Conc 33.5 g/dl (31.0-36.0); Mean Corpuscular Hemoglobin 29.8 pg (27.0-33.0); Mean Platelet Volume 11.3 fL (9.4-12.4); Monocytes Absolute Auto 0.6 X10*3/uL (0.1-1.2); Monocytes Percent Auto 13.1 % (2-11); Neutrophils Absolute Auto 3.2 x10*3/uL (2.0-8.3); Neutrophils Percent Auto 67.5 % (45-73); Platelet Count 123 X10*3/uL (160-400); Red Blood Count 4.93 X10*6/uL (4.60-5.80); Red Cell Distribution Width 13.7 % (11.0-16.0); White Blood Count 4.8 X10*3/uL (4.8-10.8)
[2023-06-15 13:53] LABS: Alanine Aminotransferase 39 U/L (0-40); Alkaline Phosphatase 62 U/L (39-117); Anion Gap 14 (12-20); Aspartate Amino Transferase 40 U/L (5-37); Bilirubin Total 0.4 mg/dL (0.0-1.0); Blood Urea Nitrogen 17 mg/dL (9-16); Calcium 8.4 mg/dL (8.4-10.2); Carbon Dioxide 22 mmol/L (22-29); Chloride 108 mmol/L (96-108); Creatinine Clr Calc Pharmacy 103.1; Estimated Glomerular Filt Rate > 60; Ethanol 168 mg/dL; Glucose Random 86 mg/dL (60-115); Sodium 140 mmol/L (135-145); Total Protein 7.2 g/dL (6.5-8.0)
--- NOTE | 2023-06-15 14:15 | MHC.RECOVSUP ---
Met with pt in BH3 who is here for ETOH. Pt reports having come here from [facility] and has been drinking about 1 pint of vodka a day. Pt was last in ATS several months ago and is interested in ATS at this time. Case was reviewed with recovery team and determined to provide pt recovery resources and to follow up with ATS from the community as been able to present himself to [facility] in the past. Provider has been informed.
--- NOTE | 2023-06-15 14:31 | ED_ITS ---
HPI - Alcohol General Chief Complaint: ETOH/Substance Use Stated Complaint: ETOH-DETOX Time Seen by Provider: 06/15/23 12:52 Source: patient Mode of arrival: EMS Limitations: no limitations History of Present Illness HPI narrative: 53-year-old male with history of alcohol use disorder, hypertension, stroke, lung cancer who presents emergency department requesting detox. The patient states he has been drinking 1 pt of vodka per day and 2 beers. He states that he wants to stop drinking therefore came to emergency department for evaluation. He states he has been having intermittent headaches but otherwise has no complaints. He denied fever, chills, nausea, vomiting, abdominal pain. Related Data Home Medications Medication Instructions Recorded Confirmed amlodipine 10 mg tablet 10 mg PO DAILY 06/04/23 06/04/23 multivitamin with folic acid 400 1 tab PO DAILY 06/04/23 06/04/23 mcg tablet (Daily-Nga (with folic acid)) naltrexone 50 mg tablet 50 mg PO DAILY PRN alcohol use 06/04/23 06/04/23 pyridoxine (vitamin B6) 50 mg PO DAILY 06/04/23 06/04/23 thiamine HCl (vitamin B1) 06/04/23 06/04/23 Allergies Allergy/AdvReac Type Severity Reaction Status Date / Time clams Allergy Severe HIVES, Verified 06/15/23 12:27 DIFFICULTY BREATHING Review of Systems 2 Review of Systems: Yes all other systems are reviewed and are negative [facility] Past Medical History [facility] Narrative: Social history: He does smoke cigarettes. He drinks 1 pt of vodka per day and 2 beers. His last drink was earlier in the day. He denies drug use. Medical History High cholesterol HTN (hypertension) ETOH abuse Social History Social History Household Members: None Housing: Homeless Do you presently have visiting nurse or other home services: No Alcohol intake: current Alcohol intake frequency: 0-2 drinks per day Alcohol type: beer and hard liquor Patient Tobacco Use Status: Never used Tobacco Smoked in Last 30 Days: Yes Use of substances other than those prescribed or required for medical reasons: No Advance Directives: No Advance Directives Information Provided: No service: No Current occupational status: unemployed Physical Exam ED Vital Signs: Vital Signs - 24 hr 06/15/23 12:27 Temperature 98.4 F Pulse Rate 97 Respiratory Rate 20 Blood Pressure 109/73 Pulse Oximetry 94 Oxygen Delivery Method Room Air BMI result Body Mass Index 27.4 Vital signs were normal Exam General: Awake, alert in no distress Head: Normocephalic, atraumatic EENT: PERRL, Lids normal, sclera normal, conjunctiva normal, nose normal , ears normal, throat without erythema or exudates Neck: Supple, no adenopathy, no trachea midline or C-spine tenderness Lung: breath sounds symmetric, no wheezing, rales or rhonchi Chest: symmetric movement, nontender Heart: regular rate and rhythm, normal S1, S2 no murmurs or rubs Abdomen: soft, non-tender, nondistended, normal bowel sounds Back: no vertebral tenderness, no CVAT Extremities: no deformities, moves all extremities symmetrically Neuro: Awake, alert, oriented, normal speech, cranial nerves intact, moves all extremities symmetrically Psych: Pleasant, cooperative Medical Decision Making Medical Decision Making [facility] Narrative: 53-year-old male with history of hypertension, stroke, lung cancer, alcohol use disorder presents emergency department requesting detox. Patient did drink alcohol prior to coming to emergency department. Patient's vital signs were normal. Physical exam was unremarkable. Following evaluation was ordered: CBC, CMP, alcohol level. 14:47 My interpretation patient's laboratory evaluation as follows: CBC and CMP were normal. Alcohol level was elevated 168. Patient was seen by our pharmacy intake coordinator who knows the patient well. The patient was given resources to get into detox as an outpatient. The patient was discharged home. Differential Diagnosis Differential Diagnoses: The differential diagnosis associated with the presentation includes Differential diagnosis includes was not limited to acute alcohol intoxication, electrolyte abnormality, anemia, alcoholic hepatitis Admission/Observation Consideration of admission/observation: Escalation of care including admission/observation considered Consult Healthcare Provider A consult in the pharmacy intake coordinator and we discussed patient's presentation and disposition. Lab Data [facility] Lab Attestation statement: I reviewed the patient's lab results. See [facility] 06/15/23 13:28 06/15/23 13:28 Labs: Lab Results 06/15/23 Range/Units 13:28 WBC 4.8 (4.8-10.8) X10*3/uL RBC 4.93 (4.60-5.80) X10*6/uL Hgb 14.7 (14.0-18.0) g/dl Hct 43.9 (42.0-52.0) % MCV 89.0 (80.0-98.0) fL MCH 29.8 (27.0-33.0) pg MCHC 33.5 (31.0-36.0) g/dl RDW 13.7 (11.0-16.0) % Plt Count 123 L (160-400) X10*3/uL MPV 11.3 (9.4-12.4) fL Immature Gran % (Auto) 0.2 (0.0-0.4) % Neut % (Auto) 67.5 (45-73) % Lymph % (Auto) 15.2 L (20-40) % [place] % (Auto) 13.1 H (2-11) % Eos % (Auto) 3.6 (0-4) % Baso % (Auto) 0.4 (0-2) % Lymph # (Auto) 0.7 L (1.2-4.9) X10*3/uL [place] # (Auto) 0.6 (0.1-1.2) X10*3/uL Eos # (Auto) 0.2 (0.0-0.4) X10*3/uL Baso # (Auto) 0.0 (0.0-0.2) X10*3/uL Abs Immat Gran (auto) 0.01 (0.00-0.03) X10*3/uL Absolute Neuts (auto) 3.2 (2.0-8.3) x10*3/uL Absolute Nucleated RBC 0.000 (0.0-0.012) X10*3/uL Nucleated RBC % (auto) 0.0 (0.0-0.2) /100WBC Sodium 140 (135-145) mmol/L Potassium 4.0 (3.3-5.1) mmol/L Chloride 108 (96-108) mmol/L Carbon Dioxide 22 (22-29) mmol/L Anion Gap 14 (12-20) BUN 17 H (9-16) mg/dL Creatinine 0.81 (0.5-1.4) mg/dL Estim Creat Clear Calc 103.1 Estimated GFR > 60 Random Glucose 86 (60-115) mg/dL Calcium 8.4 (8.4-10.2) mg/dL Total Bilirubin 0.4 (0.0-1.0) mg/dL AST 40 H (5-37) U/L ALT 39 (0-40) U/L Alkaline Phosphatase 62 (39-117) U/L Total Protein 7.2 (6.5-8.0) g/dL Albumin 4.0 (3.5-5.0) g/dL Ethyl Alcohol 168 mg/dL Chronic Conditions Patient?s care impacted by: Hypertension Alcohol use disorder Social Determinants Patient?s care significantly limited by Social Determinants of Health including: Inadequate housing Discharge Plan Discharge Clinical Impression: Alcohol use disorder Alcohol intoxication Qualifiers: Complication of substance-induced condition: uncomplicated Qualified Code(s): F 10.920 - Alcohol use, unspecified with intoxication, uncomplicated Patient Disposition: Home, Self-Care Additional Instructions: You were seen by our pharmacy intake coordinator. Please follow his instructions. Continue to take your medications as prescribed by your providers. Follow-up with your doctor in 2 days. Please return to the emergency department if your symptoms get worse or if you develop any symptoms that are concerning to you. Prescriptions: No Action naltrexone 50 mg tablet 50 mg PO DAILY PRN (Reason: alcohol use ) amlodipine 10 mg tablet 10 mg PO DAILY multivitamin with folic acid [Daily-Nga (with folic acid)] 400 mcg tablet 1 tab PO DAILY pyridoxine (vitamin B6) 50 mg PO DAILY thiamine HCl (vitamin B1)
[2023-06-15 15:04] VITALS: BP 126/86; PULSE 87; RESP 18; TEMP 36.3; O2SAT 93
== END 2023-06-15 15:06 | disposition home or self-care (01) ==
PROVIDERS: Emergency Provider Emergency Medicine Emergency Medical Services
DX: F10.920 Alcohol use, unspecified with intoxication, uncomplicated (principal); Y90.6 Blood alcohol level of 120-199 mg/100 ml; Z79.899 Other long term (current) drug therapy
CPT/HCPCS: 36415; 80053; 80307; 85025; 99284

== ENCOUNTER 2023-06-16 13:01 | Emergency (ER) | payer MEDICAID, SELFPAY ==
--- NOTE | ~2023-06-16 | CT_ITS ---
EXAMINATION: CT HEAD WITHOUT CONTRAST CT CERVICAL SPINE WITHOUT CONTRAST CLINICAL INFORMATION: Fall. Trauma to the head. COMPARISON: None available. TECHNIQUE: Contiguous axial imaging was performed from the skull base to vertex without intravenous administration of contrast. This CT examination was performed using dose optimization techniques as appropriate, variously including the following: *Automated exposure control *Adjustment of mA and/or kV according to patient size (this includes techniques or standardized protocols for targeted exams where dose is matched to indication/reason for exam; i.e. extremities or head) *Use of iterative reconstruction technique DLP: 1109 mGy-cm FINDINGS: The lateral, third and fourth ventricles are normally outlined. The cortical sulci and basal cisterns are normally outlined as well. There is no acute territorial defect, hemorrhage or midline shift. The extra-axial spaces are unremarkable. Calvarium: Intact. Maxilla facial sinuses and mastoids: There is bilateral maxillary sinus mucosal thickening. Remaining visualized maxillofacial sinuses and mastoids are clear. Significant maxillary dental disease is noted with caries as well as. Apical lucencies. Cervical spine: The alignment is within normal limits. There is minimal/early diffuse cervical disc degenerative change with mild endplate sclerosis and early osteophyte formation associated with mild diffuse facet osteoarthritic hypertrophic change without significant spinal canal or neuroforaminal narrowing. There is no cervical fracture. Mildly displaced fracture through the right transverse process of T1. The soft tissues are unremarkable. The visualized upper lung santos are clear. CT/CT cervical spine wo IV con IMPRESSION: 1. No acute intracranial pathology. 2. No acute cervical fracture or malalignment. 3. Mildly displaced fracture right transverse process of T1. 4. Significant dental disease.
[2023-06-16 13:07] VITALS: BP 120/72; PULSE 81; O2SAT 97
[2023-06-16 13:10] VITALS: BP 121/69; PULSE 88; RESP 17; TEMP 36.8; O2SAT 94
--- NOTE | 2023-06-16 13:30 | ED.GENADULT ---
HPI - General Adult General Chief complaint: ETOH/Substance Use Stated complaint: FELL 1 HR AGO Time Seen by Provider: 06/16/23 13:07 History of Present Illness HPI narrative: 53 y/o M patient; PMH alcohol use disorder, HTN, hx CVA, lung CA; who presents via EMS from home with report of unwitnessed fall prior to arrival. The patient states he is homeless and fell off of a friend's porch approx 2 steps. He denies LOC. At baseline patient has been recommended by physical therapy to ambulate with a walker. He reports he drank 1 pint of liquor and 1 beer tonight. He otherwise reports pain to the back of his head. He denies any other complaints. He was last seen in this ED on 06/15/2023 with interest in alcohol detox. He was also seen this month 05/27/2023 following a fall while intoxicated. Related Data Home Medications Medication Instructions Recorded Confirmed amlodipine 10 mg tablet 10 mg PO DAILY 06/04/23 06/04/23 multivitamin with folic acid 400 1 tab PO DAILY 06/04/23 06/04/23 mcg tablet (Daily-Nga (with folic acid)) naltrexone 50 mg tablet 50 mg PO DAILY PRN alcohol use 06/04/23 06/04/23 pyridoxine (vitamin B6) 50 mg PO DAILY 06/04/23 06/04/23 thiamine HCl (vitamin B1) 06/04/23 06/04/23 Allergies Allergy/AdvReac Type Severity Reaction Status Date / Time clams Allergy Severe HIVES, Verified 06/15/23 12:27 DIFFICULTY BREATHING Review of Systems Review of Systems: Yes all other systems are reviewed and are negative Neurologic: Denies Abnormal speech present [facility] Past Medical History Attestation statement: The following information was validated with the patient. Source: old records reviewed Medical History High cholesterol HTN (hypertension) ETOH abuse Social History Social History Household Members: None Housing: Homeless Do you presently have visiting nurse or other home services: No Alcohol intake: current Alcohol intake frequency: 3 or more drinks per day Alcohol type: beer and hard liquor Patient Tobacco Use Status: Never used Tobacco Smoked in Last 30 Days: No Use of substances other than those prescribed or required for medical reasons: No Advance Directives: No Advance Directives Information Provided: No service: No Current occupational status: unemployed Physical Exam ED Vital Signs: Vital Signs - 24 hr 06/16/23 13:10 06/16/23 16:48 Temperature 98.2 F 97.8 F Pulse Rate 88 66 Respiratory Rate 17 15 Blood Pressure 121/69 94/57 L Pulse Oximetry 94 96 Oxygen Delivery Method Room Air Room Air BMI result Body Mass Index 0.0 Patient is afebrile and hemodynamically stable Const Other: Wearing multiple layers to upper and lower extremities General: cooperative and no acute distress Orientation/consciousness: patient oriented x3 HENMT Head: Yes atraumatic Ears: external ears normal and TM's normal bilaterally General nose exam: Normal external nose present Eyes General: appearance normal, both eyes and all related structures Pupils: Equal, round and reactive pupils present EOM: EOMs intact bilaterally Neck Other: C-collar in place Neck: No tender Chest Chest palpation & inspection: normal inspection of the chest Resp Effort & Inspection: normal respiratory effort Auscultation: clear to auscultation bilaterally Cardio Rate: regular rate Rhythm: regular rhythm Peripheral pulses: Peripheral pulses 2+ throughout GI Inspection: Yes normal to inspection and No distended Palpation (GI): Soft to palpation, not firm, nontender, no guarding and not rigid Auscultation: normal bowel sounds Back/Spine/Pelvis Back: No back tenderness Skin Other: Healing abrasion to right knee Neuro General: patient oriented x3 Cranial nerves: Yes Equal, round and reactive pupils present Cognition (Neuro): normal cognition Speech: No Abnormal speech present Course Course Course Narrative: Patient is afebrile and hemodynamically stable. Atraumatic examination other than healing abrasion to right knee. Will obtain CT Head/Neck due to patient reported trauma in the setting of alcohol intoxication. Will obtain EtOH level. Reevaluation(s) Reevaluation #1: Ethanol level 196, sober at 7pm. Plan for discharge when legally sober - with resources to follow up at [facility] as a walk-in at 8am if patient is interested in detox. Reevaluation #2: CT Head unremarkable. CT Cervical spine notable for likely acute, mildly displaced fx right transverse process of T1. Patient is neurologically intact and ambulating with a steady state. Will recommend out-patient follow up for stable fx. Plan: Discharge Condition: Stable Medical Decision Making Lab Data Labs: Lab Results 06/16/23 Range/Units 14:14 Ethyl Alcohol 196 mg/dL Radiology Impression Discussion of test interpretation with radiology: I have reviewed the radiologist's reading. Radiologist Impression: EXAMINATION: CT HEAD WITHOUT CONTRAST CT CERVICAL SPINE WITHOUT CONTRAST CLINICAL INFORMATION: Fall. Trauma to the head. COMPARISON: None available. TECHNIQUE: Contiguous axial imaging was performed from the skull base to vertex without intravenous administration of contrast. This CT examination was performed using dose optimization techniques as appropriate, variously including the following: *Automated exposure control *Adjustment of mA and/or kV according to patient size (this includes techniques or standardized protocols for targeted exams where dose is matched to indication/reason for exam; i.e. extremities or head) *Use of iterative reconstruction technique DLP: 1109 mGy-cm FINDINGS: The lateral, third and fourth ventricles are normally outlined. The cortical sulci and basal cisterns are normally outlined as well. There is no acute territorial defect, hemorrhage or midline shift. The extra-axial spaces are unremarkable. Calvarium: Intact. Maxilla facial sinuses and mastoids: There is bilateral maxillary sinus mucosal thickening. Remaining visualized maxillofacial sinuses and mastoids are clear. Significant maxillary dental disease is noted with caries as well as. Apical lucencies. Cervical spine: The alignment is within normal limits. There is minimal/early diffuse cervical disc degenerative change with mild endplate sclerosis and early osteophyte formation associated with mild diffuse facet osteoarthritic hypertrophic change without significant spinal canal or neuroforaminal narrowing. There is no cervical fracture. Mildly displaced fracture through the right transverse process of T1. The soft tissues are unremarkable. The visualized upper lung santos are clear. CT/CT cervical spine wo IV con IMPRESSION: 1. No acute intracranial pathology. 2. No acute cervical fracture or malalignment. 3. Mildly displaced fracture right transverse process of T1. 4. Significant dental disease. Discharge Plan Discharge Clinical Impression: ETOH abuse, Spinal fracture Patient Disposition: Home, Self-Care Instructions: Abuse of Alcohol (DC) Additional Instructions: As we discussed, you were seen after a fall while you were drinking alcohol. Your alcohol level was elevated. Your CT of your head and neck showed your broke a small part of your back on the right-side. Please follow up with your PCP within 1 week to discuss your recent ED visit. Return to the ED with worsening back pain, passing out or headache. Prescriptions: No Action naltrexone 50 mg tablet 50 mg PO DAILY PRN (Reason: alcohol use ) amlodipine 10 mg tablet 10 mg PO DAILY multivitamin with folic acid [Daily-Nga (with folic acid)] 400 mcg tablet 1 tab PO DAILY pyridoxine (vitamin B6) 50 mg PO DAILY thiamine HCl (vitamin B1)
[2023-06-16 14:31] LABS: Ethanol 196 mg/dL
--- NOTE | 2023-06-16 14:47 | MHC.RECOVRN ---
Discussed case with Gloria Mckinnon APRN. Plan for pt to discharge when medically cleared. Pt has recovery resources and knowledge and ability to coordinate ATS admission from community. [facility] does not have bed availability today, pt to present as walk in at 8 am if ATS is desired. Provider aware.
--- NOTE | 2023-06-16 16:47 | PC.NURSE ---
pt resting in the stretcher, respirations even and unlabored, pt in a c-collar and pt denies pain at this time
[2023-06-16 16:48] VITALS: BP 94/57; PULSE 66; RESP 15; TEMP 36.6; O2SAT 96
== END 2023-06-16 19:20 | disposition home or self-care (01) ==
PROVIDERS: Emergency Provider Emergency Medicine
DX: S22.019A Unspecified fracture of first thoracic vertebra, initial encounter for closed fracture (principal); F10.129 Alcohol abuse with intoxication, unspecified; R51.9 Headache, unspecified; Y90.6 Blood alcohol level of 120-199 mg/100 ml; W01.10XA Fall on same level from slipping, tripping and stumbling with subsequent striking against unspecified object, initial encounter; Y93.9 Activity, unspecified; Y92.9 Unspecified place or not applicable; Y99.9 Unspecified external cause status; Z79.899 Other long term (current) drug therapy
CPT/HCPCS: 36415; 70450; 72125; 80307; 99284

== ENCOUNTER 2023-06-18 17:27 | Emergency (ER) | payer MEDICAID, SELFPAY ==
--- NOTE | ~2023-06-18 | CT_ITS ---
Examination: CT brain and CT cervical spine without contrast. CLINICAL INDICATION: Drinking and fall. COMPARISON: CT brain and CT cervical spine 06/16/2023. TECHNIQUE: 5 mm thin axial and reformatted 2 mm thin sagittal and coronal images of brain were obtained. DLP 1018. Subsequently axial 3 mm thin and reformatted 2 mm thin sagittal and coronal images of cervical spine were obtained. DLP 1018. This CT examination was performed using dose optimization technique as appropriate, variously including the following: Automated exposure control Adjustment of MA and/or KV according to patient size(this includes techniques or standardized protocols for targeted exams where dose is matched to indication/reason for exam; extremities or head. Use of iterative reconstruction techniques. FINDINGS: BRAIN: There is no acute intra-axial, extra-axial bleed, masses or midline shift. There is no acute infarction evolution. There is no edema. The yao to white matter differentiation is maintained normal. The lateral ventricles are symmetrical in size and configuration without enlargement. Is a prominent cisterna magna is noted. Bone windows reveal no calvarial abnormality. There is no scalp soft tissue abnormality. Bilateral paranasal sinuses and mastoid air cells are well-aerated with mild mucoperiosteal thickening lateral wall right maxillary sinus. CERVICAL SPINE: On sagittal reconstructed images there is normal cervical lordosis. The vertebral heights, alignment and disc heights are normal. The craniovertebral junction and the C1-C2 alignment is normal. There is no visible acute fracture, dislocation or subluxation seen. There is mild right C4-5 and C5-C6 facet joint arthropathy and hypertrophy. The airway is widely patent. The lung apices are clear. CT/CT cervical spine wo IV con IMPRESSION: No acute intracranial process seen. There is no acute fracture, dislocation or subluxation seen in cervical spine. Mild degenerative changes as described above.
[2023-06-18 17:41] VITALS: BP 154/92; PULSE 64; O2SAT 98
[2023-06-18 17:54] VITALS: BP 113/66; PULSE 85; RESP 18; TEMP 37; O2SAT 97; BMI 27.8
--- NOTE | 2023-06-18 18:41 | ED_ITS ---
HPI - General Adult General Chief complaint: ETOH/Substance Use Stated complaint: ETOH Time Seen by Provider: 06/18/23 17:31 Source: patient Mode of arrival: ambulatory Limitations: no limitations History of Present Illness HPI narrative: 53 yold male with pmh of alcohol abuse presents to the ED falling and hitting head in [facility] after drinking alcohol. patient states he drank a PINT of vodka. paient does not want detox. Related Data Home Medications Medication Instructions Recorded Confirmed amlodipine 10 mg tablet 10 mg PO DAILY 06/04/23 06/04/23 multivitamin with folic acid 400 1 tab PO DAILY 06/04/23 06/04/23 mcg tablet (Daily-Nga (with folic acid)) naltrexone 50 mg tablet 50 mg PO DAILY PRN alcohol use 06/04/23 06/04/23 pyridoxine (vitamin B6) 50 mg PO DAILY 06/04/23 06/04/23 thiamine HCl (vitamin B1) 06/04/23 06/04/23 Allergies Allergy/AdvReac Type Severity Reaction Status Date / Time clams Allergy Severe HIVES, Verified 06/15/23 12:27 DIFFICULTY BREATHING Review of Systems 2 Review of Systems: falling. Drinking alcohol Yes all other systems are reviewed and are negative PMFSH Past Medical History Medical History High cholesterol HTN (hypertension) ETOH abuse Social History Social History Household Members: None Housing: Homeless Do you presently have visiting nurse or other home services: No Alcohol intake: current Alcohol intake frequency: 0-2 drinks per day Alcohol type: beer and hard liquor Patient Tobacco Use Status: Never used Tobacco Smoked in Last 30 Days: Yes Use of substances other than those prescribed or required for medical reasons: No Advance Directives: No Advance Directives Information Provided: No service: No Current occupational status: unemployed Physical Exam ED Vital Signs: Vital Signs - 24 hr 06/18/23 17:54 06/18/23 20:09 06/19/23 00:00 Temperature 98.6 F 98.0 F 98.3 F Pulse Rate 85 77 77 Respiratory Rate 18 15 18 Blood Pressure 113/66 147/93 H 136/79 Pulse Oximetry 97 100 97 Oxygen Delivery Method Room Air Room Air Room Air BMI result Body Mass Index 27.8 Const General: cooperative, healthy appearing, comfortable, no acute distress, well developed, alert and awake Orientation/consciousness: oriented to person, oriented to place, oriented to time and patient oriented x3 HENMT Head: Yes normal to inspection and Yes No palpable skull fracture present Head images: 2 1. positive for abrasions. driedd blood 2. positive for abrasions. dried blood. Eyes General: appearance normal, both eyes and all related structures Neck Neck: Yes normal visual inspection, Yes full ROM, Yes no lymphadenopathy, Yes no meningeal signs, Yes trachea midline, Yes supple, No anterior neck swelling and No tender Chest Chest palpation & inspection: normal inspection of the chest and normal palpation of entire chest wall Resp Effort & Inspection: normal respiratory effort and able to speak in complete sentences Auscultation: clear to auscultation bilaterally Cardio Jugular venous distension: no JVD Heart sounds: S1 normal heart sound present and S2 normal heart sound present GI Inspection: Yes normal to inspection Palpation (GI): Soft to palpation, not firm, nontender, no guarding and not rigid General: No CVA tenderness and Yes no CVA tenderness Back/Spine/Pelvis Back: no CVA tenderness, No CVA tenderness and No back tenderness Skin General skin exam: no rashes or lesions noted, elasticity normal and turgor normal Neuro General: oriented to person, oriented to place, oriented to time, patient oriented x3, gait normal, tone normal, moves all extremities, Normal light touch and pain sensation, no meningeal signs, no focal motor deficits, CN's II-XI intact bilaterally and normal sensation to monofilament Extrem General: Yes normal to inspection, Yes full ROM, Yes capillary refill normal and Yes normal exam except as noted Psych Appearance: grossly normal, well kempt and not disheveled Medical Decision Making Medical Decision Making MDM Narrative: Call abuse presents to the ED for fall after drinking a pt of vodka. Patient denies any distress but does have facial abrasions. Patient will be kept in the ER for observation for patient to sober up. Was sent for head CT cervical spine CT 1:06am: patient is alert oriented x3. Patient negative for signs of trauma head and neck. Whole-body evaluated negative for signs of trauma. Patient does not want detox. Patient is safe for discharge. Differential Diagnosis Differential Diagnoses: The differential diagnosis associated with the presentation includes ( brain bleed, skull fracture, cervical spine fracture) Admission/Observation Consideration of admission/observation: Escalation of care including admission/observation considered Independent Interpretation I performed an independent interpretation of an: CT Scan Radiology Impression Discussion of test interpretation with radiology: I have reviewed the radiologist's reading. Independent Historian Clinical information obtained from an independent historian. History obtained from or confirmed by: EMS External Record Review External record reviewed: Other ( primary) Prescription Management I considered prescription management with: Pain Medication Discharge Plan Discharge Clinical Impression: ETOH abuse, Head injury Patient Disposition: Home, Self-Care Instructions: Head Injury (ED), Abuse of Alcohol (ED) Additional Instructions: please follow-up with primary care provider. Return to the ED immediately for any suicidal/ homicidal ideation, seizures, headache, tremors, abdominal pain, nausea, vomiting, chest pain, shortness of breath, abdominal pain,, rectal bleeding, vomiting blood, or any other concerning symptoms. Prescriptions: No Action naltrexone 50 mg tablet 50 mg PO DAILY PRN (Reason: alcohol use ) amlodipine 10 mg tablet 10 mg PO DAILY multivitamin with folic acid [Daily-Nga (with folic acid)] 400 mcg tablet 1 tab PO DAILY pyridoxine (vitamin B6) 50 mg PO DAILY thiamine HCl (vitamin B1) Print Language: Sudanese
--- NOTE | 2023-06-18 19:26 | PC.NURSE ---
this rn assumed care of pt. pt resting in stretcher comfortably, respirations even and unlabored. no acute distress noted.
--- NOTE | 2023-06-18 20:01 | PC.NURSE ---
this rn assumed care of pt. pt set up with dinner at this time. pt reports having a few drinks and having a fall outside. pt noted to have scrape on the right cheek. pt denies pain at this time.
[2023-06-18 20:09] VITALS: BP 147/93; PULSE 77; RESP 15; TEMP 36.7; O2SAT 100
[2023-06-19] VITALS: BP 136/79; PULSE 77; RESP 18; TEMP 36.8; O2SAT 97
[2023-06-19 02:00] VITALS: BP 154/90; PULSE 81; RESP 15; TEMP 36.6; O2SAT 97
== END 2023-06-19 02:58 | disposition home or self-care (01) ==
PROVIDERS: Emergency Provider Emergency Medicine
DX: S00.211A Abrasion of right eyelid and periocular area, initial encounter (principal); S00.81XA Abrasion of other part of head, initial encounter; F10.10 Alcohol abuse, uncomplicated; I10 Essential (primary) hypertension; W19.XXXA Unspecified fall, initial encounter; Y93.9 Activity, unspecified; Y92.009 Unspecified place in unspecified non-institutional (private) residence as the place of occurrence of the external cause; Y99.9 Unspecified external cause status
CPT/HCPCS: 70450; 72125; 99284

== ENCOUNTER 2023-06-22 18:28 | Emergency (ER) | payer MEDICAID, SELFPAY ==
--- NOTE | ~2023-06-22 | CT_ITS ---
EXAMINATION: CT HEAD WITHOUT CONTRAST CT CERVICAL SPINE WITHOUT CONTRAST CLINICAL INFORMATION: Intoxicated, fall. COMPARISON: CT head and cervical spine 06/18/2023. TECHNIQUE: Contiguous axial imaging was performed from the skull base to vertex without intravenous administration of contrast. Contiguous axial imaging was performed from the upper chest through the skull base without intravenous administration of contrast. Coronal and sagittal reformats were obtained at the acquisition workstation. This CT examination was performed using dose optimization techniques as appropriate, variously including the following: *Automated exposure control *Adjustment of mA and/or kV according to patient size (this includes techniques or standardized protocols for targeted exams where dose is matched to indication/reason for exam; i.e. extremities or head) *Use of iterative reconstruction technique DLP: 794 and 390 mGy-cm FINDINGS: Head: There is no evidence of acute intracranial hemorrhage or edematous territorial infarction. A few foci of hypoattenuation in the periventricular and deep white matter are consistent with mild microangiopathy. Lemus-white matter differentiation is preserved. Proportional prominence of the ventricles and sulcal spaces. No evidence for obstructive hydrocephalus. No abnormal mass effect or midline shift. No extra-axial fluid collections. Megacisterna magna. Small scalp hematoma in the left parieto-occipital region and left forehead. No evidence of displaced calvarial fracture. Moderate mucosal thickening of the paranasal sinuses. Left nasal septal deviation. Chronic deformity of the nasal alae. The mastoids and middle ear cavities are clear. Numerous periapical dental lucencies. Cervical Spine: The atlantooccipital and atlantoaxial articulations remain well aligned. No evidence of acute compression deformity or traumatic subluxation. Mild multilevel intervertebral disc height loss and facet arthropathy. Chronic deformity of the right transverse process at the level of T1 (11:239) with callus formation and no surrounding soft tissue swelling/hematoma. There is no prevertebral soft tissue swelling. The thyroid gland and remaining cervical soft tissues are normal in appearance. Peripheral reticulation and bronchiectasis again noted in the lung apices suggesting underlying pulmonary fibrosis. CT/CT cervical spine wo IV con IMPRESSION: 1. Small scalp hematoma in the left parieto-occipital region and left forehead. 2. No acute intracranial abnormalities. 3. No acute cervical spinal fractures or traumatic subluxation. 4. Chronic deformity of the right transverse process of T1. 5. Numerous periapical dental lucencies. Correlate with dental examination. 6. Peripheral reticulation and bronchiectasis in the lung apices suggesting underlying pulmonary fibrosis.
[2023-06-22 18:36] VITALS: BP 142/88; PULSE 102; O2SAT 96
[2023-06-22 18:46] VITALS: BP 104/67; PULSE 94; RESP 18; TEMP 36.8; O2SAT 96; BMI 27.3
--- NOTE | 2023-06-22 18:54 | PC.NURSE ---
pt took himself out of his c-collar. this RN replaced the collar and educated pt regarding safety of keeping collar on
--- NOTE | 2023-06-22 20:02 | ED_ITS ---
HPI - Alcohol General Chief Complaint: Fall Stated Complaint: ETOH, mechanical fall, head strike, no LOC Time Seen by Provider: 06/22/23 18:58 Source: EMS Mode of arrival: EMS Limitations: other (intoxicated, found down, eMS called) History of Present Illness HPI narrative: EMS called for intoxcated patient with fall and head injury. Patient known well to us, history of prior trauma and brain injury. MD complaint: alcohol intoxication Last drink: Just prior to admission Chronic alcohol use: Yes Previous visits for alcohol intoxication: Yes Related Data Home Medications Medication Instructions Recorded Confirmed amlodipine 10 mg tablet 10 mg PO DAILY 06/04/23 06/04/23 multivitamin with folic acid 400 1 tab PO DAILY 06/04/23 06/04/23 mcg tablet (Daily-Nga (with folic acid)) naltrexone 50 mg tablet 50 mg PO DAILY PRN alcohol use 06/04/23 06/04/23 pyridoxine (vitamin B6) 50 mg PO DAILY 06/04/23 06/04/23 thiamine HCl (vitamin B1) 06/04/23 06/04/23 Allergies Allergy/AdvReac Type Severity Reaction Status Date / Time clams Allergy Severe HIVES, Verified 06/15/23 12:27 DIFFICULTY BREATHING Review of Systems Review of Systems: Yes Unobtainable due to mental status (intoxication) Neurologic: Denies Sensory deficit (Neuro) [facility] Past Medical History Medical History High cholesterol HTN (hypertension) ETOH abuse Social History Social History Household Members: None Housing: Homeless Do you presently have visiting nurse or other home services: No Alcohol intake: current Alcohol intake frequency: 3 or more drinks per day Alcohol type: beer and hard liquor Patient Tobacco Use Status: Never used Tobacco Use of substances other than those prescribed or required for medical reasons: No Advance Directives: No Advance Directives Information Provided: No service: No Current occupational status: unemployed Physical Exam ED Vital Signs: Vital Signs - 24 hr 06/22/23 18:46 Temperature 98.2 F Pulse Rate 94 Respiratory Rate 18 Blood Pressure 104/67 Pulse Oximetry 96 Oxygen Delivery Method Room Air BMI result Body Mass Index 27.3 Const Other: Male looking older than stated age in ccollar, intoxicated Nutritional Appearance: average body habitus Orientation/consciousness: oriented to person Limitations: altered mental status (intoxication) HENMT Head: Yes normal to inspection Ears: external ears normal General nose exam: Normal external nose present Mouth: Normal oral and palatal mucosa present and oropharynx normal Throat: Yes posterior oropharynx normal Eyes General: appearance normal, both eyes and all related structures Neck Other: in ccollar Chest Chest palpation & inspection: normal inspection of the chest Resp Auscultation: clear to auscultation bilaterally Cardio Jugular venous distension: no JVD Rate: regular rate Rhythm: regular rhythm Heart sounds: S1 normal heart sound present and S2 normal heart sound present GI Inspection: Yes normal to inspection Palpation (GI): Soft to palpation, nontender and No hepatosplenomegaly present Auscultation: normal bowel sounds General: Yes no CVA tenderness Back/Spine/Pelvis Back: no CVA tenderness Skin General skin exam: no rashes or lesions noted Neuro General: oriented to person Cranial nerves: Yes CN's II-XII intact bilaterally Motor exam (neuro): 5/5 motor strength present throughout Sensory Exam: No Sensory deficit (Neuro) Extrem General: Yes normal to inspection Psych Appearance: grossly normal Course Reevaluation(s) Reevaluation #1: physician observation started now, patient needs time to sober up and be reevaluated for safety Time: 21:17 Medical Decision Making Differential Diagnosis Differential Diagnoses: The differential diagnosis associated with the presentation includes (alcoholism, subdural, cervical spine fracture were all considered) Admission/Observation Consideration of admission/observation: Escalation of care including admission/observation considered (upon arrival patient was considered for admission) Independent Interpretation I performed an independent interpretation of an: CT Scan (brain: no blood atrophy, cervical spine djd no fracture) Radiology Impression Discussion of test interpretation with radiology: I have reviewed the radiologist's reading. Independent Historian Clinical information obtained from an independent historian. History obtained from or confirmed by: EMS Chronic Conditions Patient?s care impacted by: Other (alcoholism) Social Determinants Patient?s care significantly limited by Social Determinants of Health including: Alcoholism and drug addiction in family Discharge Plan Discharge Clinical Impression: ETOH abuse, Head trauma Patient Disposition: Still a Patient Prescriptions: No Action naltrexone 50 mg tablet 50 mg PO DAILY PRN (Reason: alcohol use ) amlodipine 10 mg tablet 10 mg PO DAILY multivitamin with folic acid [Daily-Nga (with folic acid)] 400 mcg tablet 1 tab PO DAILY pyridoxine (vitamin B6) 50 mg PO DAILY thiamine HCl (vitamin B1)
[2023-06-22 21:49] VITALS: BP 131/84; PULSE 78; RESP 18; TEMP 36.7; O2SAT 99
--- NOTE | 2023-06-23 01:10 | PC.NURSE ---
Took over care at 23:00am, pt sleeping no sign of distress.
--- NOTE | 2023-06-23 01:28 | PC.NURSE ---
pt belt changer, clothes place in wash, lurdes care completed.
[2023-06-23 01:36] VITALS: BP 125/76; PULSE 88; RESP 16; TEMP 36.1; O2SAT 98
--- NOTE | 2023-06-23 01:41 | PC.NURSE ---
pt given a sandwich and a drink.
[2023-06-23 06:00] VITALS: BP 130/82; PULSE 65; RESP 17; TEMP 36.3; O2SAT 93
--- NOTE | 2023-06-23 06:43 | PC.NURSE ---
pt resting in bed, no sign of distress. clothes wash and returned.
[2023-06-23 07:54] VITALS: BP 155/97; PULSE 100; RESP 16; O2SAT 96
== END 2023-06-23 07:54 | disposition home or self-care (01) ==
PROVIDERS: Emergency Provider Emergency Medicine
DX: S09.90XA Unspecified injury of head, initial encounter (principal); R51.9 Headache, unspecified; M54.2 Cervicalgia; F10.129 Alcohol abuse with intoxication, unspecified; Y90.8 Blood alcohol level of 240 mg/100 ml or more; X58.XXXA Exposure to other specified factors, initial encounter; Y93.9 Activity, unspecified; Y92.9 Unspecified place or not applicable; Y99.9 Unspecified external cause status
CPT/HCPCS: 70450; 72125; 99285

== ENCOUNTER 2023-06-27 18:38 | Emergency (ER) | payer MEDICAID, SELFPAY ==
--- NOTE | ~2023-06-27 | CT_ITS ---
EXAMINATION: CT HEAD WITHOUT CONTRAST CT CERVICAL SPINE WITHOUT CONTRAST CLINICAL INFORMATION: Fall. Head strike. COMPARISON: Head and cervical spine CT 06/22/2023. TECHNIQUE: CT of the head and cervical spine were performed without intravenous contrast. Multiplanar reformats were rendered and reviewed. This CT examination was performed using dose optimization techniques as appropriate, variously including the following: *Automated exposure control *Adjustment of mA and/or kV according to patient size (this includes techniques or standardized protocols for targeted exams where dose is matched to indication/reason for exam; i.e. extremities or head) *Use of iterative reconstruction technique DLP: 1994 mGy-cm. FINDINGS: CT head: There is no intracranial hemorrhage, extra-axial collection, mass effect, or territorial infarction. The ventricles are normal in size without hydrocephalus. The calvarium is intact without fracture. There is moderate lobular mucosal thickening in the right maxillary sinus. Dental disease is partially visualized. CT cervical spine: The cervical vertebral bodies demonstrate normal heights and alignment. No acute fracture is seen. There is a chronic incompletely healed fracture of the right T1 transverse process. The spinal canal is patent. There is no high-grade narrowing of the neural foramina. The cervical soft tissues are within normal limits. CT/CT cervical spine wo IV con IMPRESSION: CT HEAD: No acute intracranial abnormality. CT CERVICAL SPINE: No cervical spine fracture or traumatic malalignment. Chronic fracture of the right T1 transverse process.
--- NOTE | ~2023-06-27 | CT_ITS ---
EXAMINATION: CT HEAD WITHOUT CONTRAST CT CERVICAL SPINE WITHOUT CONTRAST CLINICAL INFORMATION: Fall. Head strike. COMPARISON: Head and cervical spine CT 06/22/2023. TECHNIQUE: CT of the head and cervical spine were performed without intravenous contrast. Multiplanar reformats were rendered and reviewed. This CT examination was performed using dose optimization techniques as appropriate, variously including the following: *Automated exposure control *Adjustment of mA and/or kV according to patient size (this includes techniques or standardized protocols for targeted exams where dose is matched to indication/reason for exam; i.e. extremities or head) *Use of iterative reconstruction technique DLP: 1994 mGy-cm. FINDINGS: CT head: There is no intracranial hemorrhage, extra-axial collection, mass effect, or territorial infarction. The ventricles are normal in size without hydrocephalus. The calvarium is intact without fracture. There is moderate lobular mucosal thickening in the right maxillary sinus. Dental disease is partially visualized. CT cervical spine: The cervical vertebral bodies demonstrate normal heights and alignment. No acute fracture is seen. There is a chronic incompletely healed fracture of the right T1 transverse process. The spinal canal is patent. There is no high-grade narrowing of the neural foramina. The cervical soft tissues are within normal limits. CT/CT head/brain wo IV con IMPRESSION: CT HEAD: No acute intracranial abnormality. CT CERVICAL SPINE: No cervical spine fracture or traumatic malalignment. Chronic fracture of the right T1 transverse process.
[2023-06-27 18:50] VITALS: PULSE 114; O2SAT 97
--- NOTE | 2023-06-27 19:02 | ED_ITS ---
HPI - Alcohol General Chief Complaint: Fall Stated Complaint: Fall, admits to drinking Time Seen by Provider: 06/27/23 18:40 Source: patient Mode of arrival: ambulatory Limitations: no limitations History of Present Illness HPI narrative: Patient comes to the emergency room complaining of drinking alcohol and falling and hitting his head. Patient is alert and oriented. Patient is a frequent visitor to the ED for the same complaint. Patient denies any headache, no neck pain, no other injuries. Patient denies suicidal or homicidal ideation Related Data Home Medications Medication Instructions Recorded Confirmed amlodipine 10 mg tablet 10 mg PO DAILY 06/04/23 06/04/23 multivitamin with folic acid 400 1 tab PO DAILY 06/04/23 06/04/23 mcg tablet (Daily-Nga (with folic acid)) naltrexone 50 mg tablet 50 mg PO DAILY PRN alcohol use 06/04/23 06/04/23 pyridoxine (vitamin B6) 50 mg PO DAILY 06/04/23 06/04/23 thiamine HCl (vitamin B1) 06/04/23 06/04/23 Allergies Allergy/AdvReac Type Severity Reaction Status Date / Time clams Allergy Severe HIVES, Verified 06/27/23 19:38 DIFFICULTY BREATHING Review of Systems 2 Review of Systems: Constitutional : No Weight loss, No Fever, No Chills, No Night Sweats, No Fatigue, No Malaise ENT/Mouth : No Hearing loss, No Ear Pain, No Nasal Congestion, No Sinus Pain, No Hoarseness, No sore throat, No Rhinorrhea, No Swallowing Difficulty Eyes: No Eye Pain, No Swelling, No Redness, No Foreign Body, No Discharge, No Vision Changes Cardiovascular : No Chest Pain, No SOB, No Dyspnea on Exertion, No Orthopnea, No Edema, No Palpitations Respiratory : No Cough, No Sputum, No Wheezing, No Smoke Exposure, No Dyspnea Gastrointestinal : No Nausea, No Vomiting, No Diarrhea, No Constipation, No abdominal Pain, No Hematochezia, No Melena Genitourinary : no irregular bleeding, No Dysuria, No Urinary Frequency, No Hematuria, No Urinary Incontinence, No Urgency, No Flank Pain, No Urinary Flow Changes, No Hesitancy Musculoskeletal : No joint pain, No Myalgias, No Joint Swelling Skin : No Skin Lesions, No rash Neuro : No Weakness, No Numbness, No Paresthesias, No Loss of Consciousness, No Dizziness, No Headache Psych : No Anxiety/Panic, No Depression, No SI/HI/AH/VH, admits to ETOH Heme/Lymph: No Bruising, No Bleeding,No Lymphadenopathy Endocrine : No Polyuria, No Polydipsia, No Temperature Intolerance PMFSH Past Medical History Onset Date is defined in the Problem List Problems that require an onset date and time if occurred within 24 hrs of arrival to the ED Aortic Dissection and Rupture; Neurologic impairment; Cardiopulmonary Arrest; Endotracheal Intubation; Insertion or Replacement of Mechanical Circulatory Assist Device Medical History High cholesterol HTN (hypertension) ETOH abuse Social History Social History Household Members: None Housing: Homeless Do you presently have visiting nurse or other home services: No Alcohol intake: current Alcohol intake frequency: 3 or more drinks per day Alcohol type: beer and hard liquor Patient Tobacco Use Status: Never used Tobacco Advance Directives: No Advance Directives Information Provided: No service: No Current occupational status: unemployed Physical Exam ED Vital Signs: Vital Signs - 24 hr 06/27/23 19:38 Temperature 98.0 F Pulse Rate 106 H Respiratory Rate 18 Blood Pressure 122/79 Pulse Oximetry 95 Oxygen Delivery Method Room Air BMI result Body Mass Index 25.8 Const Other: Appearance: Alert. Oriented X3. No acute distress. Eyes: Pupils equal, round and reactive to light. ENT: Pharynx normal. Neck: Normal inspection. Neck supple. No lymph nodes noted. No crepitus CVS: Normal heart rate and rhythm. Pulses normal. Normal S1 and S2 Respiratory: No respiratory distress. Breath sounds normal. No Wheezing. No rales Abdomen: Soft and nontender. No rigidity. No distention. Skin: Skin warm and dry. Normal skin color. Normal skin turgor. Extremities: No lower extremity edema. No Lacerations. No Rash Neuro: Oriented X 3. No motor deficit. No sensory deficit. Moving all extremities. No slurred speech. CN 2 through 12 grossly intact Psych: calm, cooperative, normal affect Medical Decision Making Medical Decision Making MDM Narrative: -the last 3 months, patient has had 17 visits to the emergency room all for falls and EtOH. -labs and imaging are pending, care team consult pending, patient may benefit from a Section 35 -at this time, patient is not suicidal or homicidal, patient is calm and cooperative, no indication for a Section 12 - -my interpretation of CT scan of the head, no intracranial bleed. -I discussed the patient with the care team. On average, patient gets 5 CT scans a month of the head and cervical spine due to falls. Patient would likely benefit from a Section 35. However, since that there is a new requirement that the provider requesting a Section 35, needs to be present at the time that the patient is in the ED, during court hours for a zoom meeting with the court. In the meantime, we will consult Gloria Mckinnon a possible outpatient treatment and advised. -in the meantime, patient will be waiting in the ED until care team and addiction medicine and, with the plan for the patient. Patient is not suicidal or homicidal, patient is calm and cooperative -if patient does not want to wait to be seen by Addiction Medicine, patient may be discharged home. Patient is not on a Section 12, not suicidal or homicidal. -sign-out given to my colleague Dr. Mcmahan Differential Diagnosis Differential Diagnoses: The differential diagnosis associated with the presentation includes (ETOH abuse, polysubstance abuse, multiple falls) Lab Data MDM Lab Attestation statement: I reviewed the patient's lab results. 06/27/23 20:10 06/27/23 20:10 Labs: Lab Results 06/27/23 Range/Units 20:10 WBC 4.5 L (4.8-10.8) X10*3/uL RBC 4.69 (4.60-5.80) X10*6/uL Hgb 14.4 (14.0-18.0) g/dl Hct 41.5 L (42.0-52.0) % MCV 88.5 (80.0-98.0) fL MCH 30.7 (27.0-33.0) pg MCHC 34.7 (31.0-36.0) g/dl RDW 13.9 (11.0-16.0) % Plt Count 108 L (160-400) X10*3/uL MPV 11.4 (9.4-12.4) fL Immature Gran % (Auto) 0.2 (0.0-0.4) % Neut % (Auto) 63.5 (45-73) % Lymph % (Auto) 15.7 L (20-40) % [place] % (Auto) 15.3 H (2-11) % Eos % (Auto) 5.1 H (0-4) % Baso % (Auto) 0.2 (0-2) % Lymph # (Auto) 0.7 L (1.2-4.9) X10*3/uL [place] # (Auto) 0.7 (0.1-1.2) X10*3/uL Eos # (Auto) 0.2 (0.0-0.4) X10*3/uL Baso # (Auto) 0.0 (0.0-0.2) X10*3/uL Abs Immat Gran (auto) 0.01 (0.00-0.03) X10*3/uL Absolute Neuts (auto) 2.9 (2.0-8.3) x10*3/uL Absolute Nucleated RBC 0.000 (0.0-0.012) X10*3/uL Nucleated RBC % (auto) 0.0 (0.0-0.2) /100WBC Sodium 143 (135-145) mmol/L Potassium 3.3 (3.3-5.1) mmol/L Chloride 107 (96-108) mmol/L Carbon Dioxide 21 L (22-29) mmol/L Anion Gap 18 (12-20) BUN 19 H (9-16) mg/dL Creatinine 0.87 (0.5-1.4) mg/dL Estim Creat Clear Calc 88.6 Estimated GFR > 60 Random Glucose 134 H (60-115) mg/dL Calcium 8.5 (8.4-10.2) mg/dL Total Bilirubin 0.5 (0.0-1.0) mg/dL Direct Bilirubin 0.2 (0.0-0.5) mg/dL AST 46 H (5-37) U/L ALT 40 (0-40) U/L Alkaline Phosphatase 66 (39-117) U/L Total Protein 7.4 (6.5-8.0) g/dL Albumin 4.0 (3.5-5.0) g/dL Ethyl Alcohol 240 mg/dL Independent Interpretation I performed an independent interpretation of an: CT Scan Radiology Impression Discussion of test interpretation with radiology: I have reviewed the radiologist's reading. Radiologist Impression: CT head: There is no intracranial hemorrhage, extra-axial collection, mass effect, or territorial infarction. The ventricles are normal in size without hydrocephalus. The calvarium is intact without fracture. There is moderate lobular mucosal thickening in the right maxillary sinus. Dental disease is partially visualized. CT cervical spine: The cervical vertebral bodies demonstrate normal heights and alignment. No acute fracture is seen. There is a chronic incompletely healed fracture of the right T1 transverse process. The spinal canal is patent. There is no high-grade narrowing of the neural foramina. The cervical soft tissues are within normal limits. CT/CT head/brain wo IV con IMPRESSION: CT HEAD: No acute intracranial abnormality. CT CERVICAL SPINE: No cervical spine fracture or traumatic malalignment. Chronic fracture of the right T1 transverse process Critical Care Time Critical Care Time Critical Care Time: No Discharge Plan Discharge Clinical Impression: ETOH abuse Patient Disposition: Still a Patient Prescriptions: No Action naltrexone 50 mg tablet 50 mg PO DAILY PRN (Reason: alcohol use ) amlodipine 10 mg tablet 10 mg PO DAILY multivitamin with folic acid [Daily-Nga (with folic acid)] 400 mcg tablet 1 tab PO DAILY pyridoxine (vitamin B6) 50 mg PO DAILY thiamine HCl (vitamin B1)
[2023-06-27 19:38] VITALS: BP 122/79; PULSE 106; RESP 18; TEMP 36.7; O2SAT 95; BMI 25.8
[2023-06-27 20:15] LABS: MANUAL DIFF FLAG NO
[2023-06-27 20:21] LABS: Basophils Percent Auto 0.2 % (0-2); Eosinophils Absolute Auto 0.2 X10*3/uL (0.0-0.4); Eosinophils Percent Auto 5.1 % (0-4); Hematocrit 41.5 % (42.0-52.0); Hemoglobin 14.4 g/dl (14.0-18.0); Imm Gran Abs Auto 0.01 X10*3/uL (0.00-0.03); Imm Gran Pct Auto 0.2 % (0.0-0.4); Lymphocytes Absolute Auto 0.7 X10*3/uL (1.2-4.9); Lymphocytes Percent Auto 15.7 % (20-40); Mean Corpuscular HGB Conc 34.7 g/dl (31.0-36.0); Mean Corpuscular Hemoglobin 30.7 pg (27.0-33.0); Mean Corpuscular Volume 88.5 fL (80.0-98.0); Mean Platelet Volume 11.4 fL (9.4-12.4); Monocytes Absolute Auto 0.7 X10*3/uL (0.1-1.2); Monocytes Percent Auto 15.3 % (2-11); Neutrophils Absolute Auto 2.9 x10*3/uL (2.0-8.3); Neutrophils Percent Auto 63.5 % (45-73); Platelet Count 108 X10*3/uL (160-400); Red Blood Count 4.69 X10*6/uL (4.60-5.80); Red Cell Distribution Width 13.9 % (11.0-16.0); White Blood Count 4.5 X10*3/uL (4.8-10.8)
[2023-06-27 20:35] LABS: Alanine Aminotransferase 40 U/L (0-40); Alkaline Phosphatase 66 U/L (39-117); Anion Gap 18 (12-20); Aspartate Amino Transferase 46 U/L (5-37); Bilirubin Direct 0.2 mg/dL (0.0-0.5); Bilirubin Total 0.5 mg/dL (0.0-1.0); Blood Urea Nitrogen 19 mg/dL (9-16); Calcium 8.5 mg/dL (8.4-10.2); Carbon Dioxide 21 mmol/L (22-29); Chloride 107 mmol/L (96-108); Creatinine Clr Calc Pharmacy 88.6; Estimated Glomerular Filt Rate > 60; Ethanol 240 mg/dL; Glucose Random 134 mg/dL (60-115); Potassium 3.3 mmol/L (3.3-5.1); Sodium 143 mmol/L (135-145); Total Protein 7.4 g/dL (6.5-8.0)
[2023-06-27 22:00] VITALS: BP 122/69; PULSE 94; RESP 18; TEMP 36.7; O2SAT 98
--- NOTE | 2023-06-28 03:43 | PC.NURSE ---
late entry- this rn assumed care of pt. pt mei from the street reporting a fall after drinking alcohol. pt reports he has lower back pain after the fall. pt reports he drinks multiple alcoholic beverages daily. pt uses a walker at baseline.
[2023-06-28 05:31] VITALS: BP 119/78; PULSE 85; RESP 16; TEMP 36.3; O2SAT 96
--- NOTE | 2023-06-28 07:24 | PC.NURSE ---
Report taken from Rowena SCHMIDT assumed care of pt at 0700. Pt A&Ox3 skin pwd respirations even unlabored. Sandwiches and PO fluid given. Awaiting dispo. Offers no complaints, aware of plan of care.
== END 2023-06-28 09:19 | disposition home or self-care (01) ==
PROVIDERS: Emergency Medicine; Emergency Provider Student in an Organized Health Care Education/Training Program
DX: F10.10 Alcohol abuse, uncomplicated (principal); Y90.8 Blood alcohol level of 240 mg/100 ml or more; R29.6 Repeated falls; E78.5 Hyperlipidemia, unspecified; I10 Essential (primary) hypertension
CPT/HCPCS: 36415; 70450; 72125; 80048; 80076; 80307; 85025; 99284

== ENCOUNTER 2023-07-01 17:52 | Emergency (ER) | payer MEDICAID, SELFPAY ==
[2023-07-01 18:09] VITALS: BP 130/82; PULSE 95; O2SAT 95
--- NOTE | 2023-07-01 18:25 | ED.ALCOHOL ---
HPI - Alcohol General Chief Complaint: ETOH/Substance Use Stated Complaint: Ingested full pint of vodka, ETOH Time Seen by Provider: 07/01/23 17:59 Source: EMS and old records reviewed Mode of arrival: EMS Limitations: other (alcohol intoxication) History of Present Illness HPI narrative: 53 yo male well known to us with hx of ETOH abuse, HTN, HLD, pneumonia, trauma from ETOH here after drinking a pint of vodka then reportedly PD was called after he was laying on the ground - no other information provided. MD complaint: alcohol intoxication Last drink: Just prior to admission Chronic alcohol use: Yes Previous visits for alcohol intoxication: Yes Recent trauma: No Associated symptoms: denies other symptoms Treatments prior to arrival: none Related Data Home Medications Medication Instructions Recorded Confirmed amlodipine 10 mg tablet 10 mg PO DAILY 06/04/23 06/04/23 multivitamin with folic acid 400 1 tab PO DAILY 06/04/23 06/04/23 mcg tablet (Daily-Nga (with folic acid)) naltrexone 50 mg tablet 50 mg PO DAILY PRN alcohol use 06/04/23 06/04/23 pyridoxine (vitamin B6) 50 mg PO DAILY 06/04/23 06/04/23 thiamine HCl (vitamin B1) 06/04/23 06/04/23 Allergies Allergy/AdvReac Type Severity Reaction Status Date / Time clams Allergy Severe HIVES, Verified 06/27/23 19:38 DIFFICULTY BREATHING Review of Systems Review of Systems: ROS unable to be obtained due to intoxication PMFSH Past Medical History Attestation statement: The following information was validated with the patient. Source: old records reviewed Onset Date is defined in the Problem List Problems that require an onset date and time if occurred within 24 hrs of arrival to the ED Aortic Dissection and Rupture; Neurologic impairment; Cardiopulmonary Arrest; Endotracheal Intubation; Insertion or Replacement of Mechanical Circulatory Assist Device Medical History High cholesterol HTN (hypertension) ETOH abuse Social History Social History Household Members: None Housing: Homeless Do you presently have visiting nurse or other home services: No Alcohol intake: current Alcohol intake frequency: 3 or more drinks per day Alcohol type: beer and hard liquor Patient Tobacco Use Status: Never used Tobacco Advance Directives: No Advance Directives Information Provided: No service: No Current occupational status: unemployed Physical Exam ED Vital Signs: Vital Signs - 24 hr 07/01/23 18:54 Temperature 97.7 F Pulse Rate 84 Respiratory Rate 18 Blood Pressure 95/54 L Pulse Oximetry 96 Oxygen Delivery Method Room Air BMI result Body Mass Index 26.6 Appearance: somnolent awake to painful stimuli but not cooperative. no acute distress. Disheveled poor hygiene Eyes: Pupils equal, round and reactive to light. ENT: Pharynx normal. old scalp L parietal scalp Neck: Normal inspection. Neck supple. CVS: Normal heart rate and rhythm. Pulses normal. Respiratory: No respiratory distress. Breath sounds normal. Abdomen: Soft and nontender. Skin: Skin warm and dry. Normal skin color. Normal skin turgor. Extremities: No lower extremity edema. No calf ttp Neuro: will not participate withdraws from tactile and paiful stimuli Course Course Course Narrative: currently being rude to CT scan staff and refusing to get on table and demanding to sleep - scrape on scalp is old and low suspicion for acute trauma Reevaluation(s) Reevaluation #1: patient agrees to labs but refusing EKG and CT scans Patient placed in physician observation at 840pm. The indication for observation is that the patient needs more time to clinically sober up from ETOH. At this time the patient is disheveled and unkempt, lungs clear, CV RRR, abd nontender, neuro is nonfocal but he is under the influence. Medical Decision Making Medical Decision Making [facility] Narrative: 53 yo male well known to us with hx of ETOH abuse, HTN, HLD, pneumonia, trauma from ETOH here with ETOH intoxication then reportedly laid on a floor - PD was called no new signs of head trauma but not reliable will obtain EKG, labs, CT head/cspine though low susp for trauma. Will need to monitor for clinical sobriety Differential Diagnosis Differential Diagnoses: The differential diagnosis associated with the presentation includes alcohol intoxication Admission/Observation Consideration of admission/observation: Escalation of care including admission/observation considered observe until clinically sober Lab Data [facility] Lab Attestation statement: I reviewed the patient's lab results. 07/01/23 20:21 07/01/23 20:21 Labs: Lab Results 07/01/23 Range/Units 20:21 WBC 5.0 (4.8-10.8) X10*3/uL RBC 4.69 (4.60-5.80) X10*6/uL Hgb 14.2 (14.0-18.0) g/dl Hct 41.9 L (42.0-52.0) % MCV 89.3 (80.0-98.0) fL MCH 30.3 (27.0-33.0) pg MCHC 33.9 (31.0-36.0) g/dl RDW 14.2 (11.0-16.0) % Plt Count 105 L (160-400) X10*3/uL MPV 11.2 (9.4-12.4) fL Immature Gran % (Auto) 0.2 (0.0-0.4) % Neut % (Auto) 71.7 (45-73) % Lymph % (Auto) 12.9 L (20-40) % [place] % (Auto) 11.2 H (2-11) % Eos % (Auto) 3.8 (0-4) % Baso % (Auto) 0.2 (0-2) % Lymph # (Auto) 0.6 L (1.2-4.9) X10*3/uL [place] # (Auto) 0.6 (0.1-1.2) X10*3/uL Eos # (Auto) 0.2 (0.0-0.4) X10*3/uL Baso # (Auto) 0.0 (0.0-0.2) X10*3/uL Abs Immat Gran (auto) 0.01 (0.00-0.03) X10*3/uL Absolute Neuts (auto) 3.6 (2.0-8.3) x10*3/uL Absolute Nucleated RBC 0.000 (0.0-0.012) X10*3/uL Nucleated RBC % (auto) 0.0 (0.0-0.2) /100WBC Sodium 142 (135-145) mmol/L Potassium 3.5 (3.3-5.1) mmol/L Chloride 108 (96-108) mmol/L Carbon Dioxide 23 (22-29) mmol/L Anion Gap 15 (12-20) BUN 19 H (9-16) mg/dL Creatinine 0.85 (0.5-1.4) mg/dL Estim Creat Clear Calc 100.5 Estimated GFR > 60 Random Glucose 92 (60-115) mg/dL Calcium 8.3 L (8.4-10.2) mg/dL Total Bilirubin 0.4 (0.0-1.0) mg/dL Direct Bilirubin 0.1 (0.0-0.5) mg/dL AST 43 H (5-37) U/L ALT 39 (0-40) U/L Alkaline Phosphatase 56 (39-117) U/L Total Creatine Kinase 151 (38-174) U/L Total Protein 7.0 (6.5-8.0) g/dL Albumin 3.8 (3.5-5.0) g/dL Ethyl Alcohol 228 mg/dL COVID-19 (TYE) Negative (Negative) COVID-19 Clin Com See Note Independent Historian Clinical information obtained from an independent historian. History obtained from or confirmed by: EMS External Record Review External record reviewed: Inpatient record Social Determinants Patient?s care significantly limited by Social Determinants of Health including: Low income, Problems related to primary support group and Unemployment Discharge Plan Discharge Clinical Impression: Alcoholic intoxication Qualifiers: Complication of substance-induced condition: with unspecified complication Qualified Code(s): F10.929 - Alcohol use, unspecified with intoxication, unspecified Patient Disposition: Still a Patient Instructions: Alcohol Intoxication (ED) Additional Instructions: stop drinking consider detox Prescriptions: No Action naltrexone 50 mg tablet 50 mg PO DAILY PRN (Reason: alcohol use ) amlodipine 10 mg tablet 10 mg PO DAILY multivitamin with folic acid [Daily-Nga (with folic acid)] 400 mcg tablet 1 tab PO DAILY pyridoxine (vitamin B6) 50 mg PO DAILY thiamine HCl (vitamin B1)
[2023-07-01 18:54] VITALS: BP 95/54; PULSE 84; RESP 18; TEMP 36.5; O2SAT 96; BMI 26.6
--- NOTE | 2023-07-01 19:39 | MHC.EDTECH ---
unable to obtain ekg at this time patient unable to arouse. Dr. Bedolla aware
--- NOTE | 2023-07-01 21:20 | MHC.EDTECH ---
pt refused EKG
--- NOTE | 2023-07-02 00:22 | PC.NURSE ---
Pt sleeping in no apparent distress. Breaths are even regular and unlabored with equal chest rises. Monitoring is ongoing.
[2023-07-02 02:47] VITALS: RESP 12
== END 2023-07-02 07:42 | disposition home or self-care (01) ==
PROVIDERS: Emergency Provider Emergency Medicine
DX: F10.120 Alcohol abuse with intoxication, uncomplicated (principal); Y90.7 Blood alcohol level of 200-239 mg/100 ml; Z11.52 Encounter for screening for COVID-19; Z79.899 Other long term (current) drug therapy
CPT/HCPCS: 36415; 80048; 80076; 80307; 82550; 85025; 87635; 99284

== ENCOUNTER 2023-07-02 14:27 | Emergency (ER) | payer MEDICAID, SELFPAY ==
[2023-07-02 14:42] VITALS: PULSE 80; O2SAT 98
--- NOTE | 2023-07-02 14:42 | ED.ALCOHOL ---
HPI - Alcohol General Chief Complaint: ETOH/Substance Use Stated Complaint: WANTS TO DETOX Source: patient and family Mode of arrival: EMS Limitations: no limitations History of Present Illness HPI narrative: This is 53 she years old man with history of alcohol abuse frequent visitor to the emergency department, seen also yesterday discharge this morning presents to the emergency department requesting detox. He stated he left the emergency room and was drinking again. Denies SI and HI. Patient a set of labs done yesterday complaint: alcohol intoxication Last drink: Hours (ago) (1) Chronic alcohol use: Yes Previous visits for alcohol intoxication: Yes Recent trauma: No Associated symptoms: denies other symptoms Treatments prior to arrival: none Related Data Home Medications Medication Instructions Recorded Confirmed amlodipine 10 mg tablet 10 mg PO DAILY 06/04/23 06/04/23 multivitamin with folic acid 400 1 tab PO DAILY 06/04/23 06/04/23 mcg tablet (Daily-Nga (with folic acid)) naltrexone 50 mg tablet 50 mg PO DAILY PRN alcohol use 06/04/23 06/04/23 pyridoxine (vitamin B6) 50 mg PO DAILY 06/04/23 06/04/23 thiamine HCl (vitamin B1) 06/04/23 06/04/23 Allergies Allergy/AdvReac Type Severity Reaction Status Date / Time clams Allergy Severe HIVES, Verified 07/02/23 14:43 DIFFICULTY BREATHING Review of Systems Constitutional: Constitutional: Denies fever(s) Gastrointestinal: Gastrointestinal: Denies vomiting [facility] Past Medical History PMFSH Narrative: Alcoholism Onset Date is defined in the Problem List Problems that require an onset date and time if occurred within 24 hrs of arrival to the ED Aortic Dissection and Rupture; Neurologic impairment; Cardiopulmonary Arrest; Endotracheal Intubation; Insertion or Replacement of Mechanical Circulatory Assist Device Medical History High cholesterol HTN (hypertension) ETOH abuse Social History Social History Household Members: None Housing: Homeless Do you presently have visiting nurse or other home services: No Alcohol intake: current Alcohol intake frequency: 3 or more drinks per day Alcohol type: beer Patient Tobacco Use Status: Never used Tobacco Advance Directives: No Advance Directives Information Provided: No service: No Current occupational status: unemployed Physical Exam ED Vital Signs: Vital Signs - 24 hr 07/02/23 14:43 07/02/23 15:37 Temperature 97.6 F 97.9 F Pulse Rate 72 66 Respiratory Rate 18 16 Blood Pressure 135/89 103/65 Pulse Oximetry 98 96 Oxygen Delivery Method Room Air Room Air BMI result Body Mass Index 25.1 Const General: cooperative Nutritional Appearance: malnourished Orientation/consciousness: patient oriented x3 Limitations: no limitations HENMT Head: Yes normal to inspection General nose exam: Normal external nose present Face and sinus: Yes normal facial exam Mouth: Normal oral and palatal mucosa present Neck Neck: Yes normal visual inspection, Yes full ROM and Yes no lymphadenopathy Chest Chest palpation & inspection: normal inspection of the chest Cardio Jugular venous distension: no JVD Rate: regular rate Rhythm: regular rhythm GI Inspection: Yes normal to inspection Palpation (GI): Soft to palpation, not firm, nontender and no guarding Percussion: Yes normal to percussion Auscultation: normal bowel sounds Skin General skin exam: no rashes or lesions noted Neuro General: patient oriented x3 Extrem General: Yes normal to inspection Course Reevaluation(s) Reevaluation #1: waiting for care team pt will be signed out to Dr Mcmahan Time: 15:55 Medical Decision Making Medical Decision Making MDM Narrative: Patient presented with alcohol intoxication will obtain care team eval Differential Diagnosis Differential Diagnoses: The differential diagnosis associated with the presentation includes Alcohol intoxication/substance abuse/electrolytes abnormality Admission/Observation Consideration of admission/observation: Escalation of care including admission/observation considered Lab Data 07/02/23 15:45 07/02/23 15:45 Labs: Lab Results 07/02/23 Range/Units 15:45 WBC 4.3 L (4.8-10.8) X10*3/uL RBC 4.70 (4.60-5.80) X10*6/uL Hgb 14.3 (14.0-18.0) g/dl Hct 42.4 (42.0-52.0) % MCV 90.2 (80.0-98.0) fL MCH 30.4 (27.0-33.0) pg MCHC 33.7 (31.0-36.0) g/dl RDW 14.1 (11.0-16.0) % Plt Count 100 L (160-400) X10*3/uL MPV 10.8 (9.4-12.4) fL Immature Gran % (Auto) 0.2 (0.0-0.4) % Neut % (Auto) 62.7 (45-73) % Lymph % (Auto) 17.6 L (20-40) % Barnwell % (Auto) 15.5 H (2-11) % Eos % (Auto) 3.8 (0-4) % Baso % (Auto) 0.2 (0-2) % Lymph # (Auto) 0.8 L (1.2-4.9) X10*3/uL Barnwell # (Auto) 0.7 (0.1-1.2) X10*3/uL Eos # (Auto) 0.2 (0.0-0.4) X10*3/uL Baso # (Auto) 0.0 (0.0-0.2) X10*3/uL Abs Immat Gran (auto) 0.01 (0.00-0.03) X10*3/uL Absolute Neuts (auto) 2.7 (2.0-8.3) x10*3/uL Absolute Nucleated RBC 0.000 (0.0-0.012) X10*3/uL Nucleated RBC % (auto) 0.0 (0.0-0.2) /100WBC Discharge Plan Discharge Clinical Impression: Alcoholic intoxication, ETOH abuse Patient Disposition: Still a Patient Prescriptions: No Action naltrexone 50 mg tablet 50 mg PO DAILY PRN (Reason: alcohol use ) amlodipine 10 mg tablet 10 mg PO DAILY multivitamin with folic acid [Daily-Nga (with folic acid)] 400 mcg tablet 1 tab PO DAILY pyridoxine (vitamin B6) 50 mg PO DAILY thiamine HCl (vitamin B1)
[2023-07-02 14:43] VITALS: BP 135/89; PULSE 72; RESP 18; TEMP 36.4; O2SAT 98; BMI 25.1
[2023-07-02 15:37] VITALS: BP 103/65; PULSE 66; RESP 16; TEMP 36.6; O2SAT 96
--- NOTE | 2023-07-02 15:47 | MHC.EDTECH ---
This pct assumed care of Pt at 1500 ,vitals taken ,Pt had a sandwich and mateo jaja for snack ,Pt comfortable watching television .
--- NOTE | 2023-07-02 15:48 | MHC.RECOVRN ---
Consult to CARE Team for ATS received. Chart reviewed. Discussed with pts RN, pt to follow up with Lizette from the community or present as a walk in tomorrow at 8 am.
[2023-07-02 19:48] VITALS: BP 120/80; PULSE 73; RESP 16; TEMP 36.9; O2SAT 97
--- NOTE | 2023-07-02 21:05 | PC.NURSE ---
this rn assumed care of pt @ 1900. pt calm and cooperative watching tv in room. pt provided with mtaeo jaja and sandwich no new needs at this time
[2023-07-02 23:41] VITALS: BP 128/86; PULSE 96; RESP 18; TEMP 36.7; O2SAT 97
--- NOTE | 2023-07-02 23:42 | MHC.EDTECH ---
Sanna naranjo took over care of patient at 2300, hourly rounds and vitals completed, patient urinated 300MLS in urinal,patient giving a can of mateo jaja per request. Call souza within reach
--- NOTE | 2023-07-03 02:27 | MHC.EDTECH ---
Hourly rounds completed,patient is sleeping resp.rate WNL and call souza within reach
[2023-07-03 06:39] VITALS: BP 125/85; PULSE 84; RESP 16; TEMP 36.6; O2SAT 98
--- NOTE | 2023-07-03 06:46 | MHC.EDTECH ---
Hourly rounds and vitals completed,emptied urinal,200MLS
== END 2023-07-03 08:02 | disposition home or self-care (01) ==
PROVIDERS: Emergency Provider Emergency Medicine
DX: F10.129 Alcohol abuse with intoxication, unspecified (principal); Y90.7 Blood alcohol level of 200-239 mg/100 ml; I10 Essential (primary) hypertension; Z79.899 Other long term (current) drug therapy
CPT/HCPCS: 36415; 80053; 80307; 85025; 99284

== ENCOUNTER 2023-07-10 14:10 | Emergency (ER) | payer MEDICAID, SELFPAY ==
--- NOTE | ~2023-07-10 | CT_ITS ---
EXAMINATION: CT HEAD WITHOUT CONTRAST CLINICAL INFORMATION: Fall EtOH COMPARISON: CT head from 06/27/2023 TECHNIQUE: Contiguous axial imaging was performed from the skull base to vertex without intravenous administration of contrast. This CT examination was performed using dose optimization techniques as appropriate, variously including the following: *Automated exposure control *Adjustment of mA and/or kV according to patient size (this includes techniques or standardized protocols for targeted exams where dose is matched to indication/reason for exam; i.e. extremities or head) *Use of iterative reconstruction technique DLP: 1020 mGy-cm FINDINGS: Slightly limited evaluation secondary to patient motion artifact. There is no evidence of acute intracranial hemorrhage or territorial infarction. Cerebral atrophy. James cisterna magna. No abnormal mass effect or midline shift is seen. Lemus to white matter differentiation is well preserved. No extra-axial fluid collections are identified. The ventricles are normal in size. There is no abnormal attenuation within the brain parenchyma. Soft tissue swelling along the left posterior parieto-occipital region and left frontal region without underlying bony defect. The osseous structures and soft tissues are normal. Mucoperiosteal thickening of the right maxillary sinus. The mastoid air cells and visualized portions of the paranasal sinuses are well aerated. CT/CT cervical spine wo IV con IMPRESSION: 1. No acute intracranial pathology. 2. Soft tissue swelling along the left posterior parieto-occipital region and left frontal region without underlying bony defect. EXAMINATION: Noncontrast CT scan of the cervical spine. INDICATION: Fall EtOH COMPARISON: CT cervical spine from 06/27/2023 TECHNIQUE: Helical, multidetector axial images were obtained from the occiput to the upper thorax. Coronal and sagittal reformats of the cervical spine were provided for interpretation. DLP: 1020 mGy-cm FINDINGS: No acute fractures or dislocations of the cervical spine are seen. Chronic fracture of the right T1 transverse process. Mild multilevel degenerative changes. Anatomic alignment and positioning of the vertebral bodies and posterior elements is noted. The atlantoaxial joint and craniovertebral articulations are normal without evidence of subluxation. There is no prevertebral soft tissue swelling. The thyroid gland and visualized portions of the lung apices and mediastinum are unremarkable. IMPRESSION: 1. No acute visible fracture or dislocation. 2. Chronic fracture of the right T1 transverse process. 3. Mild multilevel degenerative changes.
[2023-07-10 14:25] VITALS: BP 110/60; PULSE 82; O2SAT 98
[2023-07-10 14:28] VITALS: BP 103/66; PULSE 91; RESP 16; TEMP 36.4; O2SAT 96; BMI 25.8
--- NOTE | 2023-07-10 14:46 | ED.GENADULT ---
HPI - General Adult General Chief complaint: Fall Stated complaint: FALL W/HS -THINNERS Time Seen by Provider: 07/10/23 14:30 Source: patient Mode of arrival: ambulatory Limitations: no limitations History of Present Illness HPI narrative: 53 yold male with pmh of alcohol abuse presents to the ED for fall while drinking alcohol. Patient admits to drinking alcohol. patient denies any other drug use. Related Data Home Medications Medication Instructions Recorded Confirmed amlodipine 10 mg tablet 10 mg PO DAILY 06/04/23 06/04/23 multivitamin with folic acid 400 1 tab PO DAILY 06/04/23 06/04/23 mcg tablet (Daily-Nga (with folic acid)) naltrexone 50 mg tablet 50 mg PO DAILY PRN alcohol use 06/04/23 06/04/23 pyridoxine (vitamin B6) 50 mg PO DAILY 06/04/23 06/04/23 thiamine HCl (vitamin B1) 06/04/23 06/04/23 Allergies Allergy/AdvReac Type Severity Reaction Status Date / Time clams Allergy Severe HIVES, Verified 07/02/23 14:43 DIFFICULTY BREATHING Review of Systems Review of Systems: Falling and hitting head while drinking. Yes all other systems are reviewed and are negative PMFSH Past Medical History Onset Date is defined in the Problem List Problems that require an onset date and time if occurred within 24 hrs of arrival to the ED Aortic Dissection and Rupture; Neurologic impairment; Cardiopulmonary Arrest; Endotracheal Intubation; Insertion or Replacement of Mechanical Circulatory Assist Device Medical History High cholesterol HTN (hypertension) ETOH abuse Social History Social History Household Members: None Housing: Homeless Do you presently have visiting nurse or other home services: No Alcohol intake: current Alcohol intake frequency: 3 or more drinks per day Alcohol type: hard liquor Patient Tobacco Use Status: Never used Tobacco Smoked in Last 30 Days: No Use of substances other than those prescribed or required for medical reasons: No Advance Directives: No Advance Directives Information Provided: Yes service: No Current occupational status: unemployed Physical Exam ED Vital Signs: Vital Signs - 24 hr 07/10/23 14:28 07/10/23 18:10 07/10/23 23:57 Temperature 97.6 F 98.1 F 98.6 F Pulse Rate 91 88 100 Respiratory Rate 16 18 18 Blood Pressure 103/66 120/77 134/79 Pulse Oximetry 96 98 96 Oxygen Delivery Method Room Air Room Air Room Air 07/11/23 02:28 07/11/23 05:42 07/11/23 08:43 Temperature 98.9 F 98.6 F 97.8 F Pulse Rate 86 82 95 Respiratory Rate 16 20 18 Blood Pressure 102/62 118/81 134/90 H Pulse Oximetry 96 96 98 Oxygen Delivery Method Room Air Room Air Room Air BMI result Body Mass Index 25.8 Const General: cooperative, healthy appearing, comfortable, no acute distress, well developed, alert, awake and Physically active Orientation/consciousness: oriented to person, oriented to place, oriented to time and patient oriented x3 HENMT Head: Yes normal to inspection, Yes No palpable skull fracture present, Yes normocephalic and Yes atraumatic Head images: 1. Positive for Superficial abrasions for abrasion. Negative for active bleeding Eyes General: appearance normal, both eyes and all related structures Neck Neck: Yes normal visual inspection, Yes full ROM, Yes no lymphadenopathy, Yes no meningeal signs, Yes trachea midline, Yes supple, No anterior neck swelling and No tender Chest Chest palpation & inspection: normal inspection of the chest and normal palpation of entire chest wall Resp Effort & Inspection: normal respiratory effort and able to speak in complete sentences Auscultation: clear to auscultation bilaterally Cardio Jugular venous distension: no JVD Heart sounds: S1 normal heart sound present and S2 normal heart sound present GI Inspection: Yes normal to inspection Palpation (GI): Soft to palpation, not firm, nontender, no guarding and not rigid General: Yes no CVA tenderness Back/Spine/Pelvis Back: no CVA tenderness and No back tenderness Skin General skin exam: no rashes or lesions noted, elasticity normal and turgor normal Neuro General: oriented to person, oriented to place, oriented to time, patient oriented x3, gait normal, tone normal, moves all extremities, Normal light touch and pain sensation, no meningeal signs, no focal motor deficits, CN's II-XI intact bilaterally and normal sensation to monofilament Extrem General: Yes normal to inspection, Yes full ROM and Yes capillary refill normal Psych Other: Positive for alcohol on breath Appearance: grossly normal, well kempt and not disheveled Course Reevaluation(s) Reevaluation #1: Patient received in sign-out at change of shift pending sober re-evaluation. The patient is stable for discharge this time, he reports he has no where to go this late at night and is cold. The patient will be referred to addiction medicine in the morning Time: 23:22 Reevaluation #2: 07/11/2023 0943 -- Physician observation continues. Patient's clothes have been cleaned. Addiction saw him and determined he is not a bed search at this time. Patient cleared for discharge. Medical Decision Making Medical Decision Making MDM Narrative: 53 yold old male presents to ED for alcohol on breath and fall while drinking. Patient denies any complaint. Physical exam positive for signs of left occipital parietal abrasion. Rest of body examined negative for signs of trauma. Will send patient for cervical spine and head CT scan ordered. 4:54pm: ALcohol on breath. Signed out Differential Diagnosis Differential Diagnoses: The differential diagnosis associated with the presentation includes (brain bleed, skull fracture, cervical spine fracture) Admission/Observation Consideration of admission/observation: Escalation of care including admission/observation considered Independent Interpretation I performed an independent interpretation of an: CT Scan Radiology Impression Discussion of test interpretation with radiology: I have reviewed the radiologist's reading. Chronic Conditions Patient?s care impacted by: Other (Alcoholism) Discharge Plan Discharge Clinical Impression: ETOH abuse Patient Disposition: Home, Self-Care Instructions: Abuse of Alcohol (DC) Prescriptions: No Action naltrexone 50 mg tablet 50 mg PO DAILY PRN (Reason: alcohol use ) amlodipine 10 mg tablet 10 mg PO DAILY multivitamin with folic acid [Daily-Nga (with folic acid)] 400 mcg tablet 1 tab PO DAILY pyridoxine (vitamin B6) 50 mg PO DAILY thiamine HCl (vitamin B1) Interventions: ED Discharge Assessment Last Done: 07/11/23 13:41 Discharge Date/Time: 07/11/23 13:50 Print Language: Micronesian
[2023-07-10 18:10] VITALS: BP 120/77; PULSE 88; RESP 18; TEMP 36.7; O2SAT 98
--- NOTE | 2023-07-10 19:10 | MHC.RECOVSUP ---
? Reason for consult [facility] Identified [facility] use concern: - Seeking ATS (detox) - Support ? Intervention: o <del>ATS</del> <del>bed</del> <del>search</del> <del>started/completed/in</del> <del>process</del> <del>o</del> <del>MAT</del> <del>started</del> <del>or</del> <del>to</del> <del>be</del> <del>started</del> <del>o</del> <del>Community</del> <del>resources</del> <del>provided</del> <del>o</del> <del>Harm</del> <del>reduction</del> <del>discussion</del> ? Plan: <del>o</del> <del>Referral</del> <del>to</del> <del>[facility]</del> <del>o</del> <del>Bed</del> <del>search</del> <del>in</del> <del>progress</del> <del>to</del> <del>o</del> <del>Follow</del> <del>up</del> <del>tomorrow</del> <del>o</del> <del>Patient</del> <del>awaiting</del> <del>crisis</del> <del>evaluation</del> <del>o</del> <del>Patient</del> <del>to</del> <del>follow</del> <del>up</del> <del>with</del> <del>[facility]</del> <del>after</del> <del>discharge</del> ? Additional information: Met with Patient.. Could not get much from him put he did state that he wanted ATS.. Patient is not cleared yet to be able to leave.. I called Detox and they stated that at the moment no beds but to send him in the morning as a walk in..
[2023-07-10 23:57] VITALS: BP 134/79; PULSE 100; RESP 18; TEMP 37; O2SAT 96
[2023-07-11 02:28] VITALS: BP 102/62; PULSE 86; RESP 16; TEMP 37.2; O2SAT 96
[2023-07-11 05:42] VITALS: BP 118/81; PULSE 82; RESP 20; TEMP 37; O2SAT 96
--- NOTE | 2023-07-11 07:46 | PC.NURSE ---
assumed care of pt at 0700. pt awake. clothes currently being washed in POD. diet order placed. after pt eats and clothes are washed/dried, pt will be discharged.
[2023-07-11 08:43] VITALS: BP 134/90; PULSE 95; RESP 18; TEMP 36.6; O2SAT 98
--- NOTE | 2023-07-11 08:46 | ECG_ITS ---
Test Reason : FALL Blood Pressure : / mmHG Vent. Rate : 092 BPM Atrial Rate : 092 BPM P-R Int : 180 ms QRS Dur : 080 ms QT Int : 378 ms P-R-T Axes : 052 -31 022 degrees QTc Int : 467 ms Artifact in tracing Normal sinus rhythm Left axis deviation Inferior infarct (cited on or before 04-NOV-2020) Possible Anterior infarct (cited on or before 24-MAR-2023) Abnormal ECG When compared with ECG of 09-APR-2023 14:27, Vent. rate has increased BY 32 BPM Referred By: Nicho Combs Electronically Signed By:JOSÉ MIGUEL JACOBO
--- NOTE | 2023-07-11 10:31 | PC.NURSE ---
pt put up for discharge, however waiting for pt clothes to be dry. charge auditor aware.
[2023-07-11 12:29] VITALS: BP 121/80; PULSE 99; RESP 20; TEMP 37.1; O2SAT 97
== END 2023-07-11 13:50 | disposition home or self-care (01) ==
PROVIDERS: Emergency Provider Emergency Medicine
DX: S00.93XA Contusion of unspecified part of head, initial encounter (principal); F10.129 Alcohol abuse with intoxication, unspecified; M54.2 Cervicalgia; R51.9 Headache, unspecified; R94.31 Abnormal electrocardiogram [ECG] [EKG]; Y90.8 Blood alcohol level of 240 mg/100 ml or more; W01.10XA Fall on same level from slipping, tripping and stumbling with subsequent striking against unspecified object, initial encounter; Y93.9 Activity, unspecified; Y92.9 Unspecified place or not applicable; Y99.9 Unspecified external cause status; Z79.899 Other long term (current) drug therapy
CPT/HCPCS: 70450; 72125; 93005; 99284; 99285

== ENCOUNTER → 2023-07-11 08:46 | Outpatient (BNV) | payer MEDICAID, SELFPAY | PROVIDERS: Emergency Provider Emergency Medicine; Visit Provider Internal Medicine | DX: I44.4 Left anterior fascicular block (principal) | CPT/HCPCS: 93010 ==

== ENCOUNTER 2023-07-12 13:33 | Emergency (ER) | payer MEDICAID, SELFPAY ==
--- NOTE | 2023-07-12 13:36 | ED_ITS ---
HPI - Psych General Chief Complaint: General Medical Stated Complaint: etoh/seeking detox Time Seen by Provider: 07/12/23 13:34 Source: patient Mode of arrival: EMS Limitations: no limitations History of Present Illness HPI Narrative: 53-year-old male who presents emergency department for evaluation of weakness and alcohol intoxication. Patient states that he fell 2 days prior was seen here in the emergency department. He states that since that evaluation he has been feeling weak. He states he is continuing to drink alcohol. He states that he drank 1/2 pt of vodka today. Denied suicidal or homicidal ideation. EMS reports they picked him up in the stairwell of a building and that he appeared to be unsteady when he was walking to the stretcher. EMS vital signs were unremarkable point of care glucose was 118. States that he is feeling very weak and wants to get into a detox program. Patient states that you would like to get into [facility] but his walker as at his girlfriend's house. Patient has had similar presentations in the past and has had difficulty getting placed into a detox unit since he never has a walker with him. Related Data Home Medications Medication Instructions Recorded Confirmed amlodipine 10 mg tablet 10 mg PO DAILY 06/04/23 06/04/23 multivitamin with folic acid 400 1 tab PO DAILY 06/04/23 06/04/23 mcg tablet (Daily-Nga (with folic acid)) naltrexone 50 mg tablet 50 mg PO DAILY PRN alcohol use 06/04/23 06/04/23 pyridoxine (vitamin B6) 50 mg PO DAILY 06/04/23 06/04/23 thiamine HCl (vitamin B1) 06/04/23 06/04/23 Allergies Allergy/AdvReac Type Severity Reaction Status Date / Time clams Allergy Severe HIVES, Verified 07/02/23 14:43 DIFFICULTY BREATHING Review of Systems 2 Review of Systems: Yes all other systems are reviewed and are negative PMFSH Past Medical History Onset Date is defined in the Problem List Problems that require an onset date and time if occurred within 24 hrs of arrival to the ED Aortic Dissection and Rupture; Neurologic impairment; Cardiopulmonary Arrest; Endotracheal Intubation; Insertion or Replacement of Mechanical Circulatory Assist Device Medical History High cholesterol HTN (hypertension) ETOH abuse Social History Social History Household Members: None Housing: Homeless Do you presently have visiting nurse or other home services: No Alcohol intake: current Alcohol intake frequency: 3 or more drinks per day Alcohol type: hard liquor Patient Tobacco Use Status: Never used Tobacco Smoked in Last 30 Days: No Use of substances other than those prescribed or required for medical reasons: No Advance Directives: No Advance Directives Information Provided: Yes service: No Current occupational status: unemployed Physical Exam 2 Vital Signs: Vital Signs: Last Vital Signs Temp 97.8 F 07/12/23 14:01 Pulse 85 07/12/23 14:01 Resp 16 07/12/23 14:01 BP 97/61 07/12/23 14:01 Pulse Ox 97 07/12/23 14:01 O2 Del Method Room Air 07/12/23 14:01 BMI result Body Mass Index 27.4 Exam General: The patient is awake, alert, has strong odor of alcohol on his breath, he also smells of urine, he appears disheveled and his clothing are dirty Head: Normocephalic, patient has an abrasion to his left occipital scalp EENT: PERRL, Lids normal, sclera normal, conjunctiva normal, nose normal , ears normal, throat without erythema or exudates Neck: Supple, no adenopathy, no trachea midline or C-spine tenderness Lung: breath sounds symmetric, no wheezing, rales or rhonchi Chest: symmetric movement, nontender Heart: regular rate and rhythm, normal S1, S2 no murmurs or rubs Abdomen: soft, non-tender, nondistended, normal bowel sounds Extremities: no deformities, moves all extremities symmetrically Neuro: Awake, alert, oriented, normal speech, cranial nerves intact, moves all extremities symmetrically Medications Administered Discontinued Medications Generic Name Dose Route Start Last Admin Trade Name Freq PRN Reason Stop Dose Admin Bacitracin 1 appl 07/12/23 13:56 07/12/23 14:27 Bacitracin Oint 0.9 Gm Packet TOPICAL 07/12/23 13:57 1 appl ONCE ONE Administration Protocol Medical Decision Making Medical Decision Making MDM Narrative: 53-year-old male with history of hypertension, high cholesterol, alcohol use disorder who presents to emergency department for evaluation of weakness and alcohol intoxication, requesting detox. Patient was seen in the emergency department on 07/10/2023 for fall with occipital abrasion and acute alcohol intoxication. Vital signs were normal. Patient's exam did reveal a left occipital abrasion with no evidence of infection otherwise exam was unremarkable. I ordered the following evaluation: CBC, CMP, ethanol level 16:31 My interpretation patient's laboratory evaluation is as follows: WBC low 4100 and platelet count low 94,000-chronic. Elevated AST and ALT 54 and 55. Elevated ethanol level 209 Patient was seen by our recovery team who know this patient well. The recommendation is the patient pursue outpatient detox by the outpatient detox number, therefore the patient will be discharged to home. Differential Diagnosis Differential Diagnoses: The differential diagnosis associated with the presentation includes Differential diagnosis includes was not limited to alcohol intoxication, electrolyte abnormality, anemia Admission/Observation Consideration of admission/observation: Escalation of care including admission/observation considered Lab Data MDM Lab Attestation statement: I reviewed the patient's lab results. 07/12/23 14:25 07/12/23 14:25 Labs: Lab Results 07/12/23 Range/Units 14:25 WBC 4.1 L (4.8-10.8) X10*3/uL RBC 4.76 (4.60-5.80) X10*6/uL Hgb 14.8 (14.0-18.0) g/dl Hct 43.7 (42.0-52.0) % MCV 91.8 (80.0-98.0) fL MCH 31.1 (27.0-33.0) pg MCHC 33.9 (31.0-36.0) g/dl RDW 14.5 (11.0-16.0) % Plt Count 94 L (160-400) X10*3/uL MPV 11.9 (9.4-12.4) fL Immature Gran % (Auto) 0.2 (0.0-0.4) % Neut % (Auto) 68.3 (45-73) % Lymph % (Auto) 13.6 L (20-40) % [place] % (Auto) 14.8 H (2-11) % Eos % (Auto) 2.9 (0-4) % Baso % (Auto) 0.2 (0-2) % Lymph # (Auto) 0.6 L (1.2-4.9) X10*3/uL [place] # (Auto) 0.6 (0.1-1.2) X10*3/uL Eos # (Auto) 0.1 (0.0-0.4) X10*3/uL Baso # (Auto) 0.0 (0.0-0.2) X10*3/uL Abs Immat Gran (auto) 0.01 (0.00-0.03) X10*3/uL Absolute Neuts (auto) 2.8 (2.0-8.3) x10*3/uL Absolute Nucleated RBC 0.000 (0.0-0.012) X10*3/uL Nucleated RBC % (auto) 0.0 (0.0-0.2) /100WBC Sodium 141 (135-145) mmol/L Potassium 3.4 (3.3-5.1) mmol/L Chloride 106 (96-108) mmol/L Carbon Dioxide 26 (22-29) mmol/L Anion Gap 12 (12-20) BUN 17 H (9-16) mg/dL Creatinine 0.97 (0.5-1.4) mg/dL Estim Creat Clear Calc 86.1 Estimated GFR > 60 Random Glucose 88 (60-115) mg/dL Calcium 8.3 L (8.4-10.2) mg/dL Total Bilirubin 0.4 (0.0-1.0) mg/dL AST 54 H (5-37) U/L ALT 55 H (0-40) U/L Alkaline Phosphatase 60 (39-117) U/L Total Protein 6.9 (6.5-8.0) g/dL Albumin 3.7 (3.5-5.0) g/dL Ethyl Alcohol 209 mg/dL Chronic Conditions Patient?s care impacted by: Other (Alcohol use disorder) Discharge Plan Discharge Clinical Impression: Alcohol intoxication Patient Disposition: Home, Self-Care Additional Instructions: Your alcohol level was elevated consistent with alcohol intoxication, your blood work was otherwise unremarkable. Please call the numbers on the detox list to try to get into outpatient detox. If you get into a detox program you will have to show up with your walker otherwise they will not accept you Continue taking medications as prescribed by your providers. Follow-up with your doctor in 2 days. Please return to the emergency department if your symptoms get worse or if you develop any symptoms that are concerning to you. Prescriptions: No Action naltrexone 50 mg tablet 50 mg PO DAILY PRN (Reason: alcohol use ) amlodipine 10 mg tablet 10 mg PO DAILY multivitamin with folic acid [Daily-Nga (with folic acid)] 400 mcg tablet 1 tab PO DAILY pyridoxine (vitamin B6) 50 mg PO DAILY thiamine HCl (vitamin B1)
[2023-07-12 13:41] VITALS: BP 106/48; PULSE 86; O2SAT 98
[2023-07-12 14:01] VITALS: BP 97/61; PULSE 85; RESP 16; TEMP 36.6; O2SAT 97; BMI 27.4
--- NOTE | 2023-07-12 14:04 | PC.NURSE ---
Pt changed over to hospital attire, belongings behind stretcher. warm blankets provided. Abrasion to left head noted with dried blood. Face flushed. No diff breathing noted. Plan for labs. Per recovery pt to be d/c'd after medical clearance.
[2023-07-12] MEDS: Bacitracin Oint 0.9 GM PACKET 1 APPL TOPICAL (14:27)
--- NOTE | 2023-07-12 14:27 | PC.NURSE ---
Abrasion cleaned and bacitracin applied, left open to air Labs collected/sent
[2023-07-12 14:30] LABS: MANUAL DIFF FLAG NO
[2023-07-12 14:32] LABS: Basophils Percent Auto 0.2 % (0-2); Eosinophils Absolute Auto 0.1 X10*3/uL (0.0-0.4); Eosinophils Percent Auto 2.9 % (0-4); Hematocrit 43.7 % (42.0-52.0); Hemoglobin 14.8 g/dl (14.0-18.0); Imm Gran Abs Auto 0.01 X10*3/uL (0.00-0.03); Imm Gran Pct Auto 0.2 % (0.0-0.4); Lymphocytes Absolute Auto 0.6 X10*3/uL (1.2-4.9); Lymphocytes Percent Auto 13.6 % (20-40); Mean Corpuscular HGB Conc 33.9 g/dl (31.0-36.0); Mean Corpuscular Hemoglobin 31.1 pg (27.0-33.0); Mean Corpuscular Volume 91.8 fL (80.0-98.0); Mean Platelet Volume 11.9 fL (9.4-12.4); Monocytes Absolute Auto 0.6 X10*3/uL (0.1-1.2); Monocytes Percent Auto 14.8 % (2-11); Neutrophils Absolute Auto 2.8 x10*3/uL (2.0-8.3); Neutrophils Percent Auto 68.3 % (45-73); Red Blood Count 4.76 X10*6/uL (4.60-5.80); Red Cell Distribution Width 14.5 % (11.0-16.0); White Blood Count 4.1 X10*3/uL (4.8-10.8)
[2023-07-12 14:33] LABS: Platelet Count 94 X10*3/uL (160-400)
--- NOTE | 2023-07-12 14:33 | MHC.RECOVRN ---
Met with pt in [id number] after pt presented to the ED reporting weakness and requesting ATS. Pt reports alcohol use, 1 pint vodka daily, not currently experiencing withdrawal. Pt familiar with t/w from previous consults. Pt would like to go to [facility], however, pt must have walker in order to be admitted and walker is at friend's house. Pt encouraged to retrieve walker from friend's house and present to [facility] at 8AM as a walk in. Discussed with provider as well as Gloria Mckinnon APRN.
[2023-07-12 14:45] LABS: Alanine Aminotransferase 55 U/L (0-40); Albumin Level 3.7 g/dL (3.5-5.0); Alkaline Phosphatase 60 U/L (39-117); Anion Gap 12 (12-20); Aspartate Amino Transferase 54 U/L (5-37); Bilirubin Total 0.4 mg/dL (0.0-1.0); Blood Urea Nitrogen 17 mg/dL (9-16); Calcium 8.3 mg/dL (8.4-10.2); Carbon Dioxide 26 mmol/L (22-29); Chloride 106 mmol/L (96-108); Creatinine Clr Calc Pharmacy 86.1; Estimated Glomerular Filt Rate > 60; Ethanol 209 mg/dL; Glucose Random 88 mg/dL (60-115); Potassium 3.4 mmol/L (3.3-5.1); Sodium 141 mmol/L (135-145); Total Protein 6.9 g/dL (6.5-8.0)
== END 2023-07-12 18:36 | disposition home or self-care (01) ==
PROVIDERS: Emergency Provider Emergency Medicine Emergency Medical Services
DX: F10.120 Alcohol abuse with intoxication, uncomplicated (principal); Y90.7 Blood alcohol level of 200-239 mg/100 ml; R53.1 Weakness; I10 Essential (primary) hypertension; E78.00 Pure hypercholesterolemia, unspecified; Z79.899 Other long term (current) drug therapy
CPT/HCPCS: 36415; 80053; 80307; 85025; 99283; 99284

== ENCOUNTER 2023-07-13 20:09 | Emergency (ER) | payer MEDICAID, SELFPAY ==
[2023-07-13 20:22] VITALS: BP 141/101; BP 160/110; PULSE 80; PULSE 89; RESP 16; TEMP 37; O2SAT 96; BMI 25.8
--- NOTE | 2023-07-13 20:41 | ED.GENADULT ---
HPI - General Adult General Chief complaint: ETOH/Substance Use Stated complaint: ?Hypothermia Time Seen by Provider: 07/14/23 02:02 History of Present Illness HPI narrative: The patient is a 53-year-old man who was an alcoholic. He has a history of frequent ER visits. He apparently has a history of weakness and difficulty walking so he usually walks with a walker. He was here yesterday and was asking for help getting into [facility] detox. Apparently he did not have his walker with him. Apparently he has had trouble getting into detox units when he does not have his walker with him. The patient says that he would like to get into [facility] on this occasion and this time he has his walker. He says that he drank 2 beers yesterday. Denies fever, sweats, chills, chest pain, vomiting. Related Data Home Medications Medication Instructions Recorded Confirmed amlodipine 10 mg tablet 10 mg PO DAILY 06/04/23 06/04/23 multivitamin with folic acid 400 1 tab PO DAILY 06/04/23 06/04/23 mcg tablet (Daily-Nga (with folic acid)) naltrexone 50 mg tablet 50 mg PO DAILY PRN alcohol use 06/04/23 06/04/23 pyridoxine (vitamin B6) 50 mg PO DAILY 06/04/23 06/04/23 thiamine HCl (vitamin B1) 06/04/23 06/04/23 Allergies Allergy/AdvReac Type Severity Reaction Status Date / Time clams Allergy Severe HIVES, Verified 07/02/23 14:43 DIFFICULTY BREATHING Review of Systems Review of Systems: Yes all other systems are reviewed and are negative PMFSH Past Medical History Onset Date is defined in the Problem List Problems that require an onset date and time if occurred within 24 hrs of arrival to the ED Aortic Dissection and Rupture; Neurologic impairment; Cardiopulmonary Arrest; Endotracheal Intubation; Insertion or Replacement of Mechanical Circulatory Assist Device Medical History High cholesterol HTN (hypertension) ETOH abuse Social History Social History Household Members: None Housing: Homeless Do you presently have visiting nurse or other home services: No Alcohol intake: current Alcohol intake frequency: 3 or more drinks per day Alcohol type: hard liquor Patient Tobacco Use Status: Never used Tobacco Advance Directives: No Advance Directives Information Provided: No service: No Current occupational status: unemployed Physical Exam ED Vital Signs: Vital Signs - 24 hr 07/13/23 20:22 07/14/23 02:21 07/14/23 04:00 Temperature 98.6 F Pulse Rate 89 69 Respiratory Rate 16 16 14 Blood Pressure 141/101 H 131/66 Pulse Oximetry 96 98 Oxygen Delivery Method Room Air Room Air 07/14/23 06:00 Temperature Pulse Rate 72 Respiratory Rate 14 Blood Pressure 134/62 Pulse Oximetry 98 Oxygen Delivery Method Room Air BMI result Body Mass Index 25.8 Const Other: The patient was sleeping quite soundly and woke with vigorous stimulation. When awake he seemed coherent. He has a chronically ill-appearing 53-year-old. He was poorly kempt. HENMT Other: The face is symmetrical. ?Mucous membranes moist. Eyes Other: Pupils are round equal, conjunctivae are clear, extraocular movements intact Neck Other: No JVD, no adenopathy Resp Effort & Inspection: normal respiratory effort Auscultation: clear to auscultation bilaterally Cardio Rate: regular rate Rhythm: regular rhythm Heart sounds: S1 normal heart sound present and S2 normal heart sound present GI Other: The abdomen was soft and not apparently tender. Skin Other: Skin is pale and dry. Neuro Other: The patient was sleepy but arousable. Face is symmetrical. Speech was clear. He moves his extremities symmetrically. No lateralizing findings.. Extrem Other: No pitting edema. Course Course Course Narrative: RME- 53-year-old male presents for evaluation of alcohol abuse and seeking detox. He was seen here 3 times in the last 4 days. Plan for repeat labs for medical clearance. The patient is hoping to get the [facility] detox Reevaluation(s) Reevaluation #2: recovery team DC patient to [facility] 1217pm [place] Medical Decision Making Medical Decision Making MDM Narrative: The patient is 53-year-old male who was an alcoholic who comes to the emergency room very frequently. He apparently relies on a walker to get around and is often unable to get into detox because he does not have his walker. Today he presented to the emergency room with his walker and indicated he wished to be admitted to a detox center, preferably [facility] detox. Here he has been sleeping quietly. His alcohol level was undetectable. The patient will be held in the emergency room to be seen by the recovery team to see if a detox bed can be arranged Lab Data 07/13/23 21:10 07/13/23 21:10 Labs: Lab Results 07/13/23 Range/Units 21:10 WBC 4.2 L (4.8-10.8) X10*3/uL RBC 4.47 L (4.60-5.80) X10*6/uL Hgb 13.8 L (14.0-18.0) g/dl Hct 39.8 L (42.0-52.0) % MCV 89.0 (80.0-98.0) fL MCH 30.9 (27.0-33.0) pg MCHC 34.7 (31.0-36.0) g/dl RDW 14.3 (11.0-16.0) % Plt Count 93 L (160-400) X10*3/uL MPV 11.9 (9.4-12.4) fL Immature Gran % (Auto) 0.2 (0.0-0.4) % Neut % (Auto) 69.6 (45-73) % Lymph % (Auto) 11.3 L (20-40) % [place] % (Auto) 15.6 H (2-11) % Eos % (Auto) 3.1 (0-4) % Baso % (Auto) 0.2 (0-2) % Lymph # (Auto) 0.5 L (1.2-4.9) X10*3/uL [place] # (Auto) 0.7 (0.1-1.2) X10*3/uL Eos # (Auto) 0.1 (0.0-0.4) X10*3/uL Baso # (Auto) 0.0 (0.0-0.2) X10*3/uL Abs Immat Gran (auto) 0.01 (0.00-0.03) X10*3/uL Absolute Neuts (auto) 2.9 (2.0-8.3) x10*3/uL Absolute Nucleated RBC 0.000 (0.0-0.012) X10*3/uL Nucleated RBC % (auto) 0.0 (0.0-0.2) /100WBC Sodium 141 (135-145) mmol/L Potassium 3.9 (3.3-5.1) mmol/L Chloride 110 H (96-108) mmol/L Carbon Dioxide 24 (22-29) mmol/L Anion Gap 11 L (12-20) BUN 18 H (9-16) mg/dL Creatinine 0.75 (0.5-1.4) mg/dL Estim Creat Clear Calc 102.7 Estimated GFR > 60 Random Glucose 98 (60-115) mg/dL Calcium 8.3 L (8.4-10.2) mg/dL Total Bilirubin 0.5 (0.0-1.0) mg/dL AST 48 H (5-37) U/L ALT 48 H (0-40) U/L Alkaline Phosphatase 58 (39-117) U/L Total Protein 7.2 (6.5-8.0) g/dL Albumin 3.9 (3.5-5.0) g/dL Lipase 59 (8-78) U/L Ethyl Alcohol < 10 mg/dL Discharge Plan Discharge Clinical Impression: Alcoholism Patient Disposition: Xfer Other Transfer Details: [facility] Instructions: Abuse of Alcohol (ED) Additional Instructions: please go to [facility] stop drinking Prescriptions: No Action naltrexone 50 mg tablet 50 mg PO DAILY PRN (Reason: alcohol use ) amlodipine 10 mg tablet 10 mg PO DAILY multivitamin with folic acid [Daily-Nga (with folic acid)] 400 mcg tablet 1 tab PO DAILY pyridoxine (vitamin B6) 50 mg PO DAILY thiamine HCl (vitamin B1)
[2023-07-13 21:22] LABS: Imm Gran Abs Auto 0.01 X10*3/uL (0.00-0.03); Imm Gran Pct Auto 0.2 % (0.0-0.4); Mean Platelet Volume 11.9 fL (9.4-12.4); PLT CLUMP 1; Red Cell Distribution Width 14.3 % (11.0-16.0); SCAN SMEAR FLAG 1
[2023-07-13 21:24] LABS: Basophils Percent Auto 0.2 % (0-2); Eosinophils Absolute Auto 0.1 X10*3/uL (0.0-0.4); Eosinophils Percent Auto 3.1 % (0-4); Hematocrit 39.8 % (42.0-52.0); Hemoglobin 13.8 g/dl (14.0-18.0); Lymphocytes Absolute Auto 0.5 X10*3/uL (1.2-4.9); Lymphocytes Percent Auto 11.3 % (20-40); Mean Corpuscular HGB Conc 34.7 g/dl (31.0-36.0); Mean Corpuscular Hemoglobin 30.9 pg (27.0-33.0); Monocytes Absolute Auto 0.7 X10*3/uL (0.1-1.2); Monocytes Percent Auto 15.6 % (2-11); Neutrophils Absolute Auto 2.9 x10*3/uL (2.0-8.3); Neutrophils Percent Auto 69.6 % (45-73); Red Blood Count 4.47 X10*6/uL (4.60-5.80); White Blood Count 4.2 X10*3/uL (4.8-10.8)
[2023-07-13 21:25] LABS: Platelet Count 93 X10*3/uL (160-400)
[2023-07-13 21:26] LABS: MANUAL DIFF FLAG NO
[2023-07-13 21:39] LABS: Alanine Aminotransferase 48 U/L (0-40); Albumin Level 3.9 g/dL (3.5-5.0); Alkaline Phosphatase 58 U/L (39-117); Anion Gap 11 (12-20); Aspartate Amino Transferase 48 U/L (5-37); Bilirubin Total 0.5 mg/dL (0.0-1.0); Blood Urea Nitrogen 18 mg/dL (9-16); Calcium 8.3 mg/dL (8.4-10.2); Carbon Dioxide 24 mmol/L (22-29); Chloride 110 mmol/L (96-108); Creatinine Clr Calc Pharmacy 102.7; Estimated Glomerular Filt Rate > 60; Ethanol < 10 mg/dL; Glucose Random 98 mg/dL (60-115); Lipase 59 U/L (8-78); Potassium 3.9 mmol/L (3.3-5.1); Sodium 141 mmol/L (135-145); Total Protein 7.2 g/dL (6.5-8.0)
[2023-07-14 02:21] VITALS: RESP 16
[2023-07-14 04:00] VITALS: BP 131/66; PULSE 69; RESP 14; O2SAT 98
--- NOTE | 2023-07-14 04:56 | PC.NURSE ---
Pt has been asleep in bed throughout the night with no complaints. Pt woke up easily and presented A&Ox4. Pt reported no pain or nausea, had no hand tremors, and is at baseline mentation and activity level. Pt reports he does want to go to detox. Provider aware. We will discuss detox further in the morning.
--- NOTE | 2023-07-14 05:38 | PC.NURSE ---
Pt was moved into bed 20 and given a xuan to change into. Pt is denying pain at this time, presents A&Ox4, GCS 145, with warm, dry skin. Pt's belongings smell like foul urine.
[2023-07-14 06:00] VITALS: BP 134/62; PULSE 72; RESP 14; O2SAT 98
--- NOTE | 2023-07-14 09:19 | PC.NURSE ---
pt waiting for CARE team consult
--- NOTE | 2023-07-14 10:35 | MHC.RECOVRN ---
Met with patient regarding discharge dispo, patient states he would like to go to the [facility], I explained that we called,and there are no available beds at this time there. I did explain to him that I called the [facility], who have placed him on a waiting list, and that he has to call everyday to check in, he refused to take the number. He states I dont think I want to go to [place], the police told me you would take me to [facility] . I also offered to get the patient a ride to [facility], where he could make more phone calls,and have a warm place to stay for the day, he refused that as well, and stated I think Ill go [place] the [facility] [place] and ask the waiter/waitress tourist class to take me to [facility] . I encouraged client to reach out to [facility]] for any further assistance, client verbally understands this..
--- NOTE | 2023-07-14 11:00 | PC.NURSE ---
pt not in the pod- accidentally moved on tracker- pt is in the main ed.
== END 2023-07-14 12:32 | disposition other institution (70) ==
PROVIDERS: Physician Assistant; Emergency Provider Emergency Medicine
DX: R53.1 Weakness (principal); R26.2 Difficulty in walking, not elsewhere classified; F10.10 Alcohol abuse, uncomplicated; Y90.9 Presence of alcohol in blood, level not specified; Z71.41 Alcohol abuse counseling and surveillance of alcoholic; Z79.899 Other long term (current) drug therapy
CPT/HCPCS: 36415; 80053; 80307; 83690; 85025; 99283; 99284

== ENCOUNTER 2023-12-23 06:45 | Emergency (ER) | payer MEDICAID, SELFPAY ==
[2023-12-23] VITALS (19 sets, daily range): BP systolic 113–182; BP diastolic 62–112; PULSE 48–107; RESP 18–20; TEMP 33.5–36.8; O2SAT 94–100; BMI 27.6
--- NOTE | ~2023-12-23 | XR_ITS ---
EXAMINATION: XR chest 1V CLINICAL INFORMATION: Reason for Exam et tube placement COMPARISON: 09/01/2022 TECHNIQUE: Single portable frontal view. Tubes and lines: Endotracheal tube tip approximately 5 cm above david properly positioned. Gastric tube also properly positioned passing below the diaphragm into the stomach Lungs and pleura: Bilateral diffuse patchy interstitial opacification suggesting diffuse interstitial infiltrates or edema.. More dense consolidation at left lung base. Heart and mediastinum: The mediastinum is within normal limits.. Bones/soft tissue: Skeletal structures included are normal for patient's age. XR/XR chest 1V IMPRESSION: 1. ET tube and gastric tube properly positioned. 2. Bilateral diffuse patchy interstitial opacification suggesting diffuse interstitial infiltrates or edema. 3. More dense consolidation at left lung base.
--- NOTE | ~2023-12-23 | CT_ITS ---
CT head/brain wo IV con CLINICAL INFORMATION: Reason for Exam fall COMPARISON: No prior CT scan available for comparison. TECHNIQUE: Department standard protocol. This CT examination was performed using dose optimization techniques as appropriate, variously including the following: *Automated exposure control *Adjustment of mA and/or kV according to patient size (this includes techniques or standardized protocols for targeted exams where dose is matched to indication/reason for exam; i.e. extremities or head) *Use of iterative reconstruction technique FINDINGS: BRAIN PARENCHYMA: Normal yao-white matter differentiation. SUBDURAL SPACE: There is very large left subdural hematoma which extends spasm along the entire left frontal, temporal and parietal region exerting pressure and mass effect on the brain parenchyma. There is midline shift of the falx and central structures by more than 2 cm raising concern for possible sub falx herniation. It measure about 15 cm long and about 2.6 cm wide. CEREBRAL HEMISPHERES: No intracranial hemorrhage. BASAL GANGLIA AND PINEAL GLAND: Unremarkable VENTRICLES: There is effacement of the left lateral ventricle and third ventricle due to mass effect by the large bleed. CEREBELLUM AND BRAINSTEM: No space-occupying mass, hemorrhage or acute infarct. CEREBELLOPONTINE ANGLES: No lesion found. ORBITS: No intraorbital mass. VESSELS: Unremarkable SKULL BASE: Unremarkable INCLUDED SINUSES AT SKULL BASE: Clear SKULL AND SKIN: No fracture or bone lesion found. CT/CT head/brain wo IV con IMPRESSION: 1. Very large left subdural hematoma extending along the entire left frontal, temporal and parietal region measure up to 15 cm long and 2.6 cm wide. Exerting extensive mass effect on the brain parenchyma, causing midline shift of the falx and central structures to the right by more than 2 cm raising concern for possible sub falx herniation. Urgent neurosurgical evaluation for decompression is recommended. 2. There is effacement of the left lateral ventricle and third ventricle due to mass effect by the large subdural hematoma. This critical result was discussed with Dr. Cifuentes by telephone at 12/23/2023 9:15 AM and it was ascertained that the content and urgency of the report was understood at the time of direct communication.
--- NOTE | ~2023-12-23 | CT_ITS ---
EXAMINATION: CT CERVICAL SPINE CLINICAL INFORMATION: Reason for Exam fall COMPARISON: No prior CT available, TECHNIQUE: Computed axial sagittal and coronal images acquired using department's standard protocol. This CT examination was performed using dose optimization techniques as appropriate, variously including the following: *Automated exposure control *Adjustment of mA and/or kV according to patient size (this includes techniques or standardized protocols for targeted exams where dose is matched to indication/reason for exam; i.e. extremities or head) *Use of iterative reconstruction technique CONTRAST: None DLP: 1028 mGy-cm FINDINGS: SKULL BASE: Visualized structures at skull base are normal, Included facial sinuses are clear, CERVICAL VERTEBRAE: Seven cervical vertebrae identified maintaining proper height and alignment, ATLANTOAXIAL AND ATLANTOOCCIPITAL ARTICULATION: Included occipital condyle are properly articulating with C1, measuring of C1 is intact. Proper articulation of the odontoid process with C1. POSTERIOR SPINES and lateral transverse processes: All are intact. DISCS: Narrowing of intervertebral disc spaces and developed small osteophyte from the edges of endplates encroaching on the neural foramen bilaterally at multiple levels. PREVERTEBRAL SOFT TISSUE: Within normal limits, no evidence of prevertebral soft tissue swelling. Visualized portion of the trachea larynx are normal. LUNG APICES: Included lung apices are clear bilaterally. Paravertebral soft tissue including LYMPH NODE AND SALIVARY GLANDS THYROID: Paravertebral soft tissue including cervical lymph nodes are within normal limits. Included paranasal and salivary unremarkable. CT/CT cervical spine wo IV con IMPRESSION: 1. No CT evidence of cervical spine fracture. 2. Narrowing of intervertebral disc spaces and developed small osteophyte from the edges of endplates encroaching on the neural foramen bilaterally at multiple levels.
--- NOTE | 2023-12-23 07:15 | ECG_ITS ---
Test Reason : FALL Blood Pressure : / mmHG Vent. Rate : 065 BPM Atrial Rate : 065 BPM P-R Int : 202 ms QRS Dur : 082 ms QT Int : 440 ms P-R-T Axes : 049 -26 -04 degrees QTc Int : 457 ms Normal sinus rhythm Inferior infarct (cited on or before 04-NOV-2020) Anterior infarct (cited on or before 24-MAR-2023) Abnormal ECG When compared with ECG of 10-JUL-2023 16:28, ST more depressed Anterior leads T wave inversion now evident in Anterior leads Nonspecific T wave abnormality no longer evident in Lateral leads Referred By: Mary Kay Cifuentes Electronically Signed By:SUNDAY JARAMILLO MD
--- NOTE | 2023-12-23 07:15 | PC.NURSE ---
patient presented to ED via ems, patient speaking in full sentences, slurred speech, noted to have left sided facial droop unknown if from previous strokes, patient stated he was at [facility] for six months due to having two strokes. notified patient provider of patients fall and head lump, provider to bedside to evaluate patient for weakness. provider requested patient to stand despite having c collar on and not being cleared, patient was able to stand with walker but had difficulty.
--- NOTE | 2023-12-23 07:23 | ED_ITS ---
HPI - General Adult General Chief complaint: Fall Stated complaint: ETOH USE,FALL,HIT HEAD PER EMS Time Seen by Provider: 12/23/23 07:09 Source: patient and EMS Mode of arrival: EMS Limitations: no limitations History of Present Illness ED Provider: DR. Cifuentes HPI narrative: 53-year-old male who presents emergency department for evaluation of a fall, weakness and alcohol intoxication. Patient states that he fell 2 hours prior coming to the hospital at his friend's house. He states he is continuing to drink alcohol. He states that he drank 1/2 pt of vodka today. Denied suicidal or homicidal ideation. Patient had history of 2 strokes in the last 4 years left him with left-sided weakness, patient can not walk without a walker, patient fell today at his friend's house because he did not have his walker. Patient also is concern of having a new stroke, patient with history traumatic brain injury. Patient is fully awake able to provide history. No known history anticoagulation therapy. Related Data Home Medications ?Medication ?Instructions ?Recorded ?Confirmed amlodipine 10 mg tablet 10 mg PO DAILY 06/04/23 06/04/23 multivitamin with folic acid 400 1 tab PO DAILY 06/04/23 06/04/23 mcg tablet (Daily-Nga (with folic acid)) naltrexone 50 mg tablet 50 mg PO DAILY PRN alcohol use 06/04/23 06/04/23 pyridoxine (vitamin B6) 50 mg PO DAILY 06/04/23 06/04/23 thiamine HCl (vitamin B1) 06/04/23 06/04/23 Allergies Allergy/AdvReac Type Severity Reaction Status Date / Time clams Allergy Severe HIVES, Verified 12/23/23 06:53 DIFFICULTY BREATHING Review of Systems 2 Review of Systems: All other systems are reviewed and are negative Constitutional: Reports as per HPI and Reports no additional constitutional complaints Eyes: Reports as per HPI and Reports no additional eye complaints Reports system reviewed and no additional complaints, except as documented Cardiovascular: Reports as per HPI and Reports no additional cardiovascular complaints Respiratory: Reports as per HPI and Reports no additional respiratory complaints Gastrointestinal: Reports as per HPI and Reports no additional gastrointestinal complaints Genitourinary: Reports no additional female genitourinary complaints Musculoskeletal: Reports no additional musculoskeletal complaints Skin/Breast: Reports system reviewed and no additional complaints, except as docu Psychiatric: Reports no additional psychiatric complaints Endocrine: Reports no additional endocrine complaints Hematologic/Lymphatic: Reports no additional hematologic/lymphatic complaints Allergic/Immunologic: Reports no additional allergic/immunologic complaints Reports system reviewed and no additional complaints, except as documented and Reports Abnormal speech present [facility] Past Medical History Medical History High cholesterol HTN (hypertension) ETOH abuse Social History Social History Household Members: None Housing: Homeless Do you presently have visiting nurse or other home services: No Alcohol intake: current Alcohol intake frequency: 3 or more drinks per day Alcohol type: hard liquor Patient Tobacco Use Status: Never used Tobacco service: No Current occupational status: unemployed Physical Exam ED Vital Signs: Vital Signs - 24 hr 12/23/23 06:51 12/23/23 08:45 12/23/23 09:19 Temperature 98.2 F 98.1 F Pulse Rate 88 76 Respiratory Rate 18 18 Blood Pressure 152/82 H 150/80 H Pulse Oximetry 94 96 Oxygen Delivery Method Room Air Room Air Fraction of Inspired Oxygen 100 12/23/23 09:21 12/23/23 09:22 12/23/23 09:35 Temperature 96.6 F L Pulse Rate 60 93 107 H Respiratory Rate 20 20 Blood Pressure 168/112 H 182/112 H 168/111 H Pulse Oximetry 99 100 100 Oxygen Delivery Method Mechanical Ventilation Fraction of Inspired Oxygen 12/23/23 09:47 12/23/23 09:48 12/23/23 09:49 Temperature 97.5 F 97.5 F Pulse Rate 80 77 Respiratory Rate 20 20 20 Blood Pressure 149/100 H 140/93 H Pulse Oximetry 100 100 Oxygen Delivery Method Mechanical Ventilation Mechanical Ventilation Fraction of Inspired Oxygen 12/23/23 09:54 12/23/23 09:55 12/23/23 09:59 Temperature Pulse Rate 84 80 Respiratory Rate 20 20 Blood Pressure 135/88 132/87 Pulse Oximetry 100 100 Oxygen Delivery Method Fraction of Inspired Oxygen 21 12/23/23 10:06 12/23/23 10:10 12/23/23 10:20 Temperature 97.9 F 98.1 F Pulse Rate 74 71 Respiratory Rate 20 20 20 Blood Pressure 147/95 H 133/87 Pulse Oximetry 100 94 Oxygen Delivery Method Mechanical Ventilation Mechanical Ventilation Fraction of Inspired Oxygen 12/23/23 10:34 12/23/23 11:11 12/23/23 11:23 Temperature 98.2 F 98.2 F 98.2 F Pulse Rate 75 64 80 Respiratory Rate 20 20 20 Blood Pressure 123/80 113/69 123/78 Pulse Oximetry 95 100 100 Oxygen Delivery Method Mechanical Ventilation Mechanical Ventilation Mechanical Ventilation Fraction of Inspired Oxygen BMI result Body Mass Index 27.6 Vital signs have been reviewed and appear to be correct. Blood pressure elevated. Heart rate normal. Respiratory rate normal. Temperature normal. Oxygen saturation normal. Appearance: Alert. Oriented X3. No acute distress. GCS of 15 Head: Normal external exam. Normocephalic. A small occipital hematoma with superficial contusion with small amount of blood with no active bleeding. No Willams signs noted. No raccoon eyes noted Eyes: PERRLA. EOMI. Conjunctiva and sclera normal. Eyelids normal. ENT: TM's Normal. Pharynx normal. Uvula midline. Moist mucous membranes. No trismus noted. No drooling noted. No muffled voice noted. Neck: Normal inspection. Neck supple. FROM. No adenopathy. Thyroid Normal. No meningeal signs. No neck mass noted. CVS: Normal heart rate and rhythm. Heart sound normal. No murmurs noted. Pulses normal throughout. Respiratory: No respiratory distress. Painless inspiration. Breath sounds normal. No wheezes/rales/rhonchi noted. Chest nontender. No accessory muscle usage noted or decreased air movement noted. Abdomen: Soft and nontender. Bowel sounds normal in all 4 quadrants. No distention noted. No organomegaly noted. No visible injury noted. Back: No CVA tenderness. Full range of motion noted. Skin: Skin warm and dry. Normal skin color. Normal skin turgor. No rashes/lesions/lacerations noted. Extremities: No lower extremity edema. Extremities exhibit normal range of motion. Extremities nontender. Neuro: Oriented X 3. Cranial nerve exam: Left facial droop (old) Diffuse left body weakness, No sensory deficit. Reflexes normal. Patient is able to ambulate with a walker stated that his baseline gait. NIH Stroke Scale Internal: Initial- Upon Arrival Time: 07:30 Level of Consciousness: Alert Level of Consciousness Questions: Answers both questions correctly Level of Consciousness Commands: Performs both tasks correctly Best Gaze: Normal Visual: No visual loss (Old loss of vision in the right eye from previous stroke) Facial Palsy: Minor paralyis (Left hemiparesis (old)) Motor Arm (Right): No drift Motor Arm (Left): Drift (Old) Motor Leg (Right): No drift Motor Leg (Left): Drift (All from previous stroke) Limb Ataxia: Absent Sensory: Normal Best Language: No aphasia Dysarthia: Normal Extinction and Inattention: No abnormality Score: 3 Course Reevaluation(s) Reevaluation #1: Patient was awake, alert, oriented x3 with GCS of 15 [address] CT, head CT reveals left subdural hematoma with midline shift and possible herniation, patient now is not responding with GCS of 3 with 5 mm dilated left pupil, patient was moved to room 4 was intubated with RSI, patient was hyperventilated, head of the bed was elevated to 30 degree, patient was given 25 g of mannitol, case discussed with Dr. Tillman at [facility] ER who accepted the patient as a trauma transfer. Arranging for transportation no ALS available at the moment. Time: 09:26 Reevaluation #2: no ALS ground transportation crew available to manage the ventilation in route, air transportation will be challenging because weather condition and rain, [facility] has ALS advanced crew for transportation should be available in 45 minute. Will keep searching with different EMS companies, Meanwhile will continue managing the patient in our ED. consider IV Zosyn for questionable left lower lobe infiltrate. Time: 09:38 Reevaluation #3: [employer] flight crew is at bedside getting the patient ready for transportation, patient is intubated and sedated, C-collar is in place, CT C- spine is negative for cervical spine injury, blood pressure is 133/87, heart rate 71, respiratory rate is 20 intubated, temp is 98.1 degrees, O2 sat is 94%, post intubation chest x-ray showing accidental left lower lobe pneumonia patient is getting Zosyn, blood culture, lactic acid to be checked. Leaving now to [facility]. Time: 10:36 Consultations Consultation #1: Leaving the ED now. VSS, intubated, sedated. Time: 11:10 Medications Administered Discontinued Medications Generic Name Dose Route Start Last Admin Trade Name Freq PRN Reason Stop Dose Admin Atropine Sulfate 1 mg 12/23/23 09:14 12/23/23 10:03 Atropine Sulfate 1 Mg/10 Ml Syringe IVPUSH 12/23/23 09:15 Not Given ONCE ONE Etomidate 20 mg 12/23/23 10:45 12/23/23 09:00 Etomidate 20 Mg/10 Ml Vial IVPUSH 12/23/23 10:46 20 mg ONCE ONE Administration Fentanyl 25 mcg 12/23/23 09:36 12/23/23 09:47 Fentanyl Citrate/Pf 100 Mcg/2 Ml Vial IVPUSH 12/23/23 09:37 25 mcg ONCE ONE Administration Protocol Fentanyl 25 mcg 12/23/23 10:07 12/23/23 10:10 Fentanyl Citrate/Pf 100 Mcg/2 Ml Vial IVPUSH 12/23/23 10:08 25 mcg ONCE ONE Administration Protocol Fentanyl 25 mcg 12/23/23 10:18 12/23/23 10:19 Fentanyl Citrate/Pf 100 Mcg/2 Ml Vial IVPUSH 12/23/23 10:19 25 mcg ONCE ONE Administration Protocol Fentanyl 25 mcg 12/23/23 10:20 12/23/23 10:48 Fentanyl Citrate/Pf 100 Mcg/2 Ml Vial IVPUSH 12/23/23 10:21 Not Given ONCE ONE Protocol Fentanyl 100 mcg 12/23/23 10:45 12/23/23 10:53 Fentanyl Citrate/Pf 100 Mcg/2 Ml Vial IVPUSH 12/23/23 10:46 100 mcg ONCE ONE Administration Protocol Propofol 1,000 mg in 100 mls @ 0 mls/hr 12/23/23 09:15 12/23/23 09:59 Diprivan IVCONT 20 mcg/kg/min .Q0M NOBLE 9.31 mls/hr Titration Protocol Per Protocol Piperacillin Sod/Tazobactam 50 mls @ 100 mls/hr 12/23/23 10:09 12/23/23 10:30 Sod 3.375 gm/ Sodium Chloride IV 12/23/23 10:38 100 mls/hr ONCE ONE Administration Labetalol HCl 10 mg 12/23/23 09:09 12/23/23 09:21 Labetalol Hcl 100 Mg/20 Ml Vial IVPUSH 12/23/23 09:10 Not Given ONCE ONE Mannitol 25 gm 12/23/23 09:10 12/23/23 09:36 Mannitol 12.5 Gm/50 Ml Vial IV 12/23/23 09:11 25 gm ONCE ONE Administration Succinylcholine Chloride 100 mg 12/23/23 10:45 12/23/23 09:00 Succinylcholine Chloride 200 Mg/10 Ml Vial IVPUSH 12/23/23 10:46 100 mg ONCE ONE Administration Procedures Intubation Intubation Type:: Emergency Endotracheal Intubation Intubation Date:: 12/23/23 Intubation Time:: 09:00 Time out performed: Yes sedative: Etomidate Mg Given: 20 paralytic: Succinylcholine Mg Given: 100 Laryngoscope: Santo ET Tube Size: 7.5 ET Tube Uncuffed: No Tube Secured Depth (cm): 22 Tube Secured Location: lips Tube Placement Confirmation: visualized tube passing through cords, equal breath sounds bilaterally, no breath sounds over epigastrium and confirmation by capnometry Patient Tolerated Procedure: well Intubation Complications: none Medical Decision Making Differential Diagnosis Differential Diagnoses: The differential diagnosis associated with the presentation includes (Ischemic stroke, hemorrhagic stroke, cervical spine injury, coagulopathy, electrolyte derangement, severe anemia, increased intracranial pressure,) Admission/Observation Consideration of admission/observation: Escalation of care including admission/observation considered Lab Data MDM Lab Attestation statement: I reviewed the patient's lab results. 12/23/23 07:45 12/23/23 07:45 Labs: Lab Results 12/23/23 12/23/23 12/23/23 Range/Units 07:45 08:55 09:09 WBC 5.4 (4.8-10.8) X10*3/uL RBC 4.78 (4.60-5.80) X10*6/uL Hgb 14.5 (14.0-18.0) g/dl Hct 42.9 (42.0-52.0) % MCV 89.7 (80.0-98.0) fL MCH 30.3 (27.0-33.0) pg MCHC 33.8 (31.0-36.0) g/dl RDW 13.5 (11.0-16.0) % Plt Count 111 L (160-400) X10*3/uL MPV 10.9 (9.4-12.4) fL Immature Gran % (Auto) 0.4 (0.0-0.4) % Neut % (Auto) 73.4 H (45-73) % Lymph % (Auto) 10.2 L (20-40) % [place] % (Auto) 10.4 (2-11) % Eos % (Auto) 5.2 H (0-4) % Baso % (Auto) 0.4 (0-2) % Lymph # (Auto) 0.6 L (1.2-4.9) X10*3/uL [place] # (Auto) 0.6 (0.1-1.2) X10*3/uL Eos # (Auto) 0.3 (0.0-0.4) X10*3/uL Baso # (Auto) 0.0 (0.0-0.2) X10*3/uL Abs Immat Gran (auto) 0.02 (0.00-0.03) X10*3/uL Absolute Neuts (auto) 3.9 (2.0-8.3) x10*3/uL Absolute Nucleated RBC 0.000 (0.0-0.012) X10*3/uL Nucleated RBC % (auto) 0.0 (0.0-0.2) /100WBC PT 11.0 L (11.1-13.3) SEC INR 0.9 (0.9-1.1) APTT 30.0 (26.0-36.8) SEC Sodium 141 (135-145) mmol/L Potassium 3.9 (3.3-5.1) mmol/L Chloride 109 H (96-108) mmol/L Carbon Dioxide 21 L (22-29) mmol/L Anion Gap 15 (12-20) BUN 13 (9-16) mg/dL Creatinine 0.70 (0.5-1.4) mg/dL Estim Creat Clear Calc 119.6 Estimated GFR > 60 POC Glucose 86 (60-115) mg/dL Random Glucose 89 (60-115) mg/dL Calcium 8.2 L (8.4-10.2) mg/dL Total Bilirubin 0.5 (0.0-1.0) mg/dL Direct Bilirubin 0.2 (0.0-0.5) mg/dL AST 40 H (5-37) U/L ALT 29 (0-40) U/L Alkaline Phosphatase 69 (39-117) U/L Troponin I High Sens 8.3 D (<3.5-35.0) ng/L Total Protein 7.4 (6.5-8.0) g/dL Albumin 3.8 (3.5-5.0) g/dL Lipase 65 (8-78) U/L Urine Color Yellow Urine Appearance Clear Urine pH 5.5 (5.0-9.0) Ur Specific [place] 1.015 (1.005-1.025) Urine Protein Trace (Neg-Trace) mg/dL Urine Glucose (UA) Negative (Negative) mg/dL Urine Ketones Negative (Negative) mg/dL Urine Blood Negative (Negative) Urine Nitrite Negative (Negative) Ur Leukocyte Esterase Negative (Negative) Ethyl Alcohol 160 mg/dL Independent Interpretation I performed an independent interpretation of an: CT Scan (1. Very large left subdural hematoma extending along the entire left frontal, temporal and parietal region measure up to 15 cm long and 2.6 cm wide. Exerting extensive mass effect on the brain parenchyma, causing midline shift of the falx and central structures to the right by more than 2 cm raisin) Radiology Impression Discussion of test interpretation with radiology: I have reviewed the radiologist's reading. Critical Care Time Critical Care Time Critical Care Time: Yes Total Critical Care Time: 60 Attestation: The patient was critically ill with a high probability of imminent or life- threatening deterioration. I spent greater than 30 minutes of discontinuous time evaluating the patient, delivering critical care at the bedside, discussing evaluating data with consultants. Critical care time does not include time spent performing separately billable procedures or teaching. Time spent performing critical care was 60 minutes. Discharge Plan Discharge Clinical Impression: ETOH abuse, Fall, Subdural bleeding, On mechanically assisted ventilation, Pneumonia Patient Disposition: Xfer [facility] Hospital Transfer Details: Emergency Room Prescriptions: No Action naltrexone 50 mg tablet 50 mg PO DAILY PRN (Reason: alcohol use ) amlodipine 10 mg tablet 10 mg PO DAILY multivitamin with folic acid [Daily-Nga (with folic acid)] 400 mcg tablet 1 tab PO DAILY pyridoxine (vitamin B6) 50 mg PO DAILY thiamine HCl (vitamin B1) Interventions: Acute Care Transfer Worksheet (ED) Last Done: 12/23/23 11:23 Discharge Date/Time: 12/23/23 11:23 Print Language: Zambian
--- NOTE | 2023-12-23 07:37 | PC.NURSE ---
ED provider got patient out of bed with c collar in place for ambulation trial. patient noted to have egg sized lump on the back of head from fall, bleeding controlled.
[2023-12-23 07:50] LABS: MANUAL DIFF FLAG NO
[2023-12-23 07:56] LABS: Basophils Percent Auto 0.4 % (0-2); Eosinophils Absolute Auto 0.3 X10*3/uL (0.0-0.4); Eosinophils Percent Auto 5.2 % (0-4); Hematocrit 42.9 % (42.0-52.0); Hemoglobin 14.5 g/dl (14.0-18.0); Imm Gran Abs Auto 0.02 X10*3/uL (0.00-0.03); Imm Gran Pct Auto 0.4 % (0.0-0.4); Lymphocytes Absolute Auto 0.6 X10*3/uL (1.2-4.9); Lymphocytes Percent Auto 10.2 % (20-40); Mean Corpuscular HGB Conc 33.8 g/dl (31.0-36.0); Mean Corpuscular Hemoglobin 30.3 pg (27.0-33.0); Mean Corpuscular Volume 89.7 fL (80.0-98.0); Mean Platelet Volume 10.9 fL (9.4-12.4); Monocytes Absolute Auto 0.6 X10*3/uL (0.1-1.2); Monocytes Percent Auto 10.4 % (2-11); Neutrophils Absolute Auto 3.9 x10*3/uL (2.0-8.3); Neutrophils Percent Auto 73.4 % (45-73); Platelet Count 111 X10*3/uL (160-400); Red Blood Count 4.78 X10*6/uL (4.60-5.80); Red Cell Distribution Width 13.5 % (11.0-16.0); White Blood Count 5.4 X10*3/uL (4.8-10.8)
[2023-12-23 08:01] LABS: INTERNATIONAL NORM RATIO 0.9 (0.9-1.1)
[2023-12-23 08:05] LABS: Ethanol 160 mg/dL
[2023-12-23 08:09] LABS: Alanine Aminotransferase 29 U/L (0-40); Albumin Level 3.8 g/dL (3.5-5.0); Alkaline Phosphatase 69 U/L (39-117); Anion Gap 15 (12-20); Aspartate Amino Transferase 40 U/L (5-37); Bilirubin Direct 0.2 mg/dL (0.0-0.5); Bilirubin Total 0.5 mg/dL (0.0-1.0); Blood Urea Nitrogen 13 mg/dL (9-16); Calcium 8.2 mg/dL (8.4-10.2); Carbon Dioxide 21 mmol/L (22-29); Chloride 109 mmol/L (96-108); Creatinine Clr Calc Pharmacy 119.6; Estimated Glomerular Filt Rate > 60; Glucose Random 89 mg/dL (60-115); Lipase 65 U/L (8-78); Potassium 3.9 mmol/L (3.3-5.1); Sodium 141 mmol/L (135-145); Total Protein 7.4 g/dL (6.5-8.0)
[2023-12-23 08:15] LABS: Troponin-I High Sensitivity 8.3 ng/L (<3.5-35.0)
--- NOTE | 2023-12-23 08:27 | PC.NURSE ---
patient removed c collar on his own, refusing to wear
--- NOTE | 2023-12-23 08:58 | ECG_ITS ---
Test Reason : BRAIN BLEED Blood Pressure : / mmHG Vent. Rate : 074 BPM Atrial Rate : 074 BPM P-R Int : 182 ms QRS Dur : 100 ms QT Int : 382 ms P-R-T Axes : 064 -34 029 degrees QTc Int : 424 ms Normal sinus rhythm Left axis deviation Minimal voltage criteria for LVH, may be normal variant ( Sukh product ) Inferior infarct (cited on or before 04-NOV-2020) T wave abnormality, consider anterior ischemia Abnormal ECG When compared with ECG of 23-DEC-2023 07:30, ST no longer depressed in Anterior leads Nonspecific T wave abnormality has replaced inverted T waves in Inferior leads Referred By: Mary Kay Cifuentes Electronically Signed By:SUNDAY JARAMILLO MD
[2023-12-23] MEDS: Etomidate 20 MG/10 ML VIAL IVPUSH (09:00)
[2023-12-23] MEDS: Succinylcholine Chloride 200 MG/10 ML VIAL 100 MG IVPUSH (09:00)
--- NOTE | 2023-12-23 09:06 | PC.NURSE ---
patient in CT scan, became unresponsive, left pupil dilated and fixed. provider to CT scan, decision to intubate patient moved to bed. prior to patient being moved to CT scan, patient was alert, oriented. patient requesting food, stating he has not ate in 2 days.
--- NOTE | 2023-12-23 09:06 | PC.NURSE ---
patient in CT scan, became unresponsive, right pupil dilated and fixed. provider to CT scan, decision to intubate patient moved to bed. prior to patient being moved to CT scan, patient was alert, oriented. patient requesting food, stating he has not ate in 2 days.
[2023-12-23 09:19] LABS: Glucose, Whole Blood 86 mg/dL (60-115)
[2023-12-23 09:21] LABS: Appearance Urine Clear; Color Urine Yellow; Glucose Urine UA Negative (Negative); Leukocyte Esterase Urine Negative (Negative); Nitrite Urine Negative (Negative); PH 5.5 (5.0-9.0); Specific Gravity - Urine 1.015 (1.005-1.025); Urine Blood Negative (Negative); Urine Ketones Negative (Negative); Urine Protein Trace mg/dL (Neg-Trace)
[2023-12-23] MEDS: propofoL 1,000 MG/100 ML VIAL 13.97 MG IVCONT (09:21)
[2023-12-23] MEDS: MannitoL 12.5 GM/50 ML VIAL IV (09:36)
[2023-12-23] MEDS: fentaNYL citrate/PF 100 MCG/2 ML VIAL 25 MCG IVPUSH ×3 (09:47→10:19)
--- NOTE | 2023-12-23 09:50 | PC.NURSE ---
Patient transferred to ED 4 around 9am , patient unresponsive, provider and respiratory at bedside to intubate. 9am 20mg etomidate given followed by 100mg succinylcholine. 7.5 tube 24 at the lip with positive color change. OG tube placed with less than 50mls output of bloody secretions. temp sensing freguson placed with 300mls output of clear yellow urine. Soft restraints placed per MD order. Left pupil dilated and fixed, provider aware. 20g IV placed in left AC and right wrist. 18g in right bicep. Bradycardic down to 44, provider aware and ordered atropine. Patient HR back to 70`,s per provider hold labetol and and atropine at this time.
--- NOTE | 2023-12-23 10:00 | PC.NURSE ---
Provider aware of patients decreasing BP`s , stating to decrease propofol to 20mcg/kg/hr. Patient comfortable , synchronous with vent
--- NOTE | 2023-12-23 10:20 | PC.NURSE ---
Patient sating 94%, respiratory aware
[2023-12-23] MEDS: Piperacillin Sodium/Tazobactam 3.375 GM in 0.9 % Sodium Chloride 50 ML IV (10:30)
--- NOTE | 2023-12-23 10:40 | PC.NURSE ---
Report given to life flight/diana . Patient with no emergency contact listed
[2023-12-23] MEDS: fentaNYL citrate/PF 100 MCG/2 ML VIAL IVPUSH (10:53)
--- NOTE | 2023-12-23 11:11 | PC.NURSE ---
Report given to Fifi at [facility]
== END 2023-12-23 11:23 | disposition short-term general hospital (02) ==
PROVIDERS: Emergency Provider Emergency Medicine
DX: S06.5X0A Traumatic subdural hemorrhage without loss of consciousness, initial encounter (principal); W18.30XA Fall on same level, unspecified, initial encounter; F10.10 Alcohol abuse, uncomplicated; Y90.6 Blood alcohol level of 120-199 mg/100 ml; J18.9 Pneumonia, unspecified organism; R29.703 NIHSS score 3; Z87.820 Personal history of traumatic brain injury; Z91.81 History of falling; Y93.9 Activity, unspecified; Y92.009 Unspecified place in unspecified non-institutional (private) residence as the place of occurrence of the external cause; Y99.9 Unspecified external cause status; Z79.899 Other long term (current) drug therapy
CPT/HCPCS: 31500; 36415; 70450; 71045; 72125; 80048; 80076; 80307; 81003; 82947; 83690; 84484; 85025; 85610; 85730; 93005; 94002; 96374; 96375; 96376; 99285; J0330; J2150; J2543; J2704; J3010

== ENCOUNTER → 2023-12-23 07:15 | Outpatient (BNV) | payer MEDICAID, SELFPAY | PROVIDERS: Emergency Provider Emergency Medicine; Visit Provider Internal Medicine Cardiovascular Disease | DX: R94.31 Abnormal electrocardiogram [ECG] [EKG] (principal) | CPT/HCPCS: 93010 ==